=== PATIENT | male | born 1940 | race Caucasian/White ===

== ENCOUNTER → 2017-12-04 10:19 | Outpatient (CLI) | payer MEDICARE, OTHER, SELFPAY ==
[2017-12-04 10:44] LABS: Absolute Lymphocyte Count 1.77 X10^3/ul (0.83-4.51); Absolute Neutrophil Count 4.5 X10^3/uL (2.0-7.7); Basophil# 0.05 X10^3/uL; Basophil% 0.7 % (0-1); Eosinophil# 0.39 X10^3/uL; Eosinophils% 5.3 % (0-5); Hematocrit 45.1 % (40-54); Hemoglobin 15.6 g/dl (13.0-16.5); Lymphocyte # 1.77 X10^3/ul (4.0); Lymphocyte % 24.1 % (19-41); Mean Corp Hgb Conc 34.6 g/gl (32-36); Mean Corpuscular Hgb 30.6 pg (27.0-32.0); Mean Corpuscular Volume 88.4 fL (80-94); Mean Platelet Vol. 8.7 fl (6.2-12.0); Monocyte# 0.66 X10^3/uL; Neutrophil # 4.45 X10^3/uL (2.7-7.7); Neutrophil % 60.6 % (47-70); Platelet Count 251 K/mm3 (150-450); RBC Distribution Width CV 14.1 % (11.6-14.6); White Blood Count 7.3 K/mm3 (4.4-11.0)
[2017-12-04 10:52] LABS: POSITIVE COUNT NO; POSITIVE DIFFERENTIAL NO; POSITIVE MORPHOLOGY NO
[2017-12-04 11:20] LABS: ALB/GLOB Ratio 1.2 RATIO (0.9-2.4); AST(SGOT) 21 U/L (15-37); Alanine Aminotransfer ALT/SGPT 26 U/L (16-61); Albumin, Serum 4.2 g/dL (3.2-5.0); Alkaline Phosphatase 113 U/L (45-117); Anion Gap 8 (5-15); BUN 14 mg/dL (7-18); BUN/Creat Ratio 10.8 RATIO (10-20); Calcium,Total 9.3 mg/dL (8.5-10.1); Chloride 102 mmol/L (98-107); EST Glomerular Filtration Rate 57 mL/min (>60); Est Glom Filt Rate - Afr Amer 69 mL/min (>60); Globulin 3.5 g/dL (2.2-4.2); Glucose 113 mg/dL (74-106); Potassium 3.9 mmol/L (3.5-5.1); Protein, Total 7.7 g/dL (6.4-8.2); Sodium Level 138 mmol/L (136-145); Thyroid Stim Hormone (TSH) 2.37 uIU/mL (0.358-3.74)
== END ==
PROVIDERS: Family Provider Family Medicine Geriatric Medicine; PCP Family Medicine Geriatric Medicine; Visit Provider Family Medicine Geriatric Medicine
DX: I10 Essential (primary) hypertension (principal)
CPT/HCPCS: 36415; 80053; 84443; 85025

== ENCOUNTER → 2018-12-05 15:23 | Outpatient (CLI) | payer MEDICARE, OTHER, SELFPAY ==
[2018-12-05 16:11] LABS: Absolute Lymphocyte Count 2.35 X10^3/ul (0.83-4.51); Absolute Neutrophil Count 5.7 X10^3/uL (2.0-7.7); Basophil# 0.04 X10^3/uL; Basophil% 0.4 % (0-1); Eosinophil# 0.47 X10^3/uL; Hematocrit 43.2 % (40-54); Hemoglobin 14.6 g/dl (13.0-16.5); Lymphocyte # 2.35 X10^3/ul (4.0); Lymphocyte % 24.9 % (19-41); Mean Corp Hgb Conc 33.8 g/gl (32-36); Mean Corpuscular Volume 91.7 fL (80-94); Mean Platelet Vol. 8.7 fl (6.2-12.0); Monocyte# 0.84 X10^3/uL; Monocyte% 8.9 % (0-10); Neutrophil # 5.72 X10^3/uL (2.7-7.7); Neutrophil % 60.6 % (47-70); Platelet Count 238 K/mm3 (150-450); RBC Distribution Width CV 13.7 % (11.6-14.6); RBC Distribution Width SD 45.1 fl (35.1-43.9); Red Blood Count 4.71 M/mm3 (4.6-6.2); White Blood Count 9.4 K/mm3 (4.4-11.0)
[2018-12-05 16:17] LABS: Vitamin D,25 Hydroxy 4.5 ng/mL (29.95-100.01)
[2018-12-05 16:20] LABS: ALB/GLOB Ratio 1.2 RATIO (0.9-2.4); AST(SGOT) 21 U/L (15-37); Alanine Aminotransfer ALT/SGPT 28 U/L (16-61); Alkaline Phosphatase 113 U/L (45-117); Anion Gap 8 (5-15); BUN 17 mg/dL (7-18); BUN/Creat Ratio 13.5 RATIO (10-20); Calcium,Total 8.6 mg/dL (8.5-10.1); Chloride 106 mmol/L (98-107); Creatinine, Serum 1.26 mg/dL (0.70-1.30); EST Glomerular Filtration Rate 59 mL/min (>60); Est Glom Filt Rate - Afr Amer 71 mL/min (>60); Globulin 3.3 g/dL (2.2-4.2); Glucose 101 mg/dL (74-106); POSITIVE COUNT NO; POSITIVE DIFFERENTIAL NO; POSITIVE MORPHOLOGY NO; Protein, Total 7.3 g/dL (6.4-8.2); Sodium Level 141 mmol/L (136-145); Thyroid Stim Hormone (TSH) 1.88 uIU/mL (0.358-3.74)
== END ==
PROVIDERS: Family Provider Family Medicine Geriatric Medicine; PCP Family Medicine Geriatric Medicine; Visit Provider Family Medicine Geriatric Medicine
DX: E55.9 Vitamin D deficiency, unspecified (principal); I10 Essential (primary) hypertension
CPT/HCPCS: 36415; 80053; 82306; 84443; 85025

== ENCOUNTER → 2019-06-05 | Outpatient (CLI) | payer MEDICARE, OTHER, SELFPAY ==
[2019-06-05 12:16] LABS: Absolute Lymphocyte Count 2.38 X10^3/uL (0.83-4.51); Absolute Neutrophil Count 5.7 X10^3/uL (2.0-7.7); Basophil# 0.04 X10^3/uL; Basophil% 0.4 % (0-1); Eosinophils% 5.4 % (0-5); Hematocrit 44.5 % (40-54); Hemoglobin 14.8 g/dL (13.0-16.5); Lymphocyte # 2.38 X10^3/ul (4.0); Lymphocyte % 25.6 % (19-41); Mean Corp Hgb Conc 33.3 g/dL (32-36); Mean Corpuscular Hgb 30.8 pg (27.0-32.0); Mean Corpuscular Volume 92.5 fL (80-94); Mean Platelet Vol. 9.3 fl (6.2-12.0); Monocyte# 0.66 X10^3/uL; Monocyte% 7.1 % (0-10); NRBC Flagged by Analyzer 0 % (0-5); Neutrophil # 5.67 X10^3/uL (2.7-7.7); Neutrophil % 61.2 % (47-70); Platelet Count 212 K/mm3 (150-450); RBC Distribution Width CV 13.2 % (11.6-14.6); RBC Distribution Width SD 45.3 fl (35.1-43.9); Red Blood Count 4.81 M/mm3 (4.6-6.2); White Blood Count 9.3 K/mm3 (4.4-11.0)
[2019-06-05 12:41] LABS: ALB/GLOB Ratio 1.2 RATIO (0.9-2.4); AST(SGOT) 18 U/L (15-37); Alanine Aminotransfer ALT/SGPT 24 U/L (16-61); Alkaline Phosphatase 110 U/L (45-117); Anion Gap 5 (5-15); BUN 15 mg/dL (7-18); BUN/Creat Ratio 12.1 RATIO (10-20); Chloride 106 mmol/L (98-107); Creatinine, Serum 1.24 mg/dL (0.70-1.30); EST Glomerular Filtration Rate 60 mL/min (>60); Est Glom Filt Rate - Afr Amer 72 mL/min (>60); Globulin 3.4 g/dL (2.2-4.2); Glucose 110 mg/dL (74-106); Potassium 3.7 mmol/L (3.5-5.1); Protein, Total 7.4 g/dL (6.4-8.2); Sodium Level 139 mmol/L (136-145); Thyroid Stim Hormone (TSH) 1.86 uIU/mL (0.358-3.74)
== END | disposition home or self-care (01) ==
PROVIDERS: Family Provider Family Medicine Geriatric Medicine; PCP Family Medicine Geriatric Medicine; Visit Provider Family Medicine Geriatric Medicine
DX: I10 Essential (primary) hypertension (principal); E55.9 Vitamin D deficiency, unspecified
CPT/HCPCS: 36415; 80053; 82306; 84443; 85025

== ENCOUNTER → 2019-12-06 08:42 | Outpatient (CLI) | payer MEDICARE, OTHER, SELFPAY ==
[2019-12-06 13:08] LABS: Absolute Lymphocyte Count 2.26 X10^3/uL (0.83-4.51); Absolute Neutrophil Count 6.5 X10^3/uL (2.0-7.7); Basophil# 0.05 X10^3/uL; Basophil% 0.5 % (0-1); Eosinophil# 0.54 X10^3/uL; Eosinophils% 5.3 % (0-5); Hematocrit 44.5 % (40-54); Hemoglobin 14.4 g/dL (13.0-16.5); Lymphocyte # 2.26 X10^3/ul (4.0); Lymphocyte % 22.3 % (19-41); Mean Corp Hgb Conc 32.4 g/dL (32-36); Mean Corpuscular Hgb 29.9 pg (27.0-32.0); Mean Corpuscular Volume 92.3 fL (80-94); Monocyte# 0.81 X10^3/uL; NRBC Flagged by Analyzer 0 % (0-5); Neutrophil # 6.46 X10^3/uL (2.7-7.7); Neutrophil % 63.6 % (47-70); Platelet Count 224 K/mm3 (150-450); RBC Distribution Width CV 13.7 % (11.6-14.6); RBC Distribution Width SD 46.5 fl (35.1-43.9); Red Blood Count 4.82 M/mm3 (4.6-6.2); White Blood Count 10.2 K/mm3 (4.4-11.0)
[2019-12-06 13:30] LABS: ALB/GLOB Ratio 1.1 RATIO (0.9-2.4); AST(SGOT) 18 U/L (15-37); Alanine Aminotransfer ALT/SGPT 31 U/L (16-61); Alkaline Phosphatase 101 U/L (45-117); Anion Gap 6 (5-15); BUN 18 mg/dL (7-18); BUN/Creat Ratio 15.3 RATIO (10-20); Calcium,Total 9.3 mg/dL (8.5-10.1); Chloride 102 mmol/L (98-107); Creatinine, Serum 1.18 mg/dL (0.70-1.30); EST Glomerular Filtration Rate 63 mL/min (>60); Est Glom Filt Rate - Afr Amer 76 mL/min (>60); Globulin 3.6 g/dL (2.2-4.2); Glucose 104 mg/dL (74-106); Potassium 3.7 mmol/L (3.5-5.1); Protein, Total 7.6 g/dL (6.4-8.2); Sodium Level 138 mmol/L (136-145); Thyroid Stim Hormone (TSH) 2.35 uIU/mL (0.358-3.74)
[2019-12-10 11:23] LABS: Vitamin D,25 Hydroxy 19.6 ng/mL
== END ==
PROVIDERS: PCP Family Medicine Geriatric Medicine; Visit Provider Family Medicine Geriatric Medicine
DX: I10 Essential (primary) hypertension (principal); E55.9 Vitamin D deficiency, unspecified
CPT/HCPCS: 36415; 80053; 82306; 84443; 85025

== ENCOUNTER → 2020-06-05 10:21 | Outpatient (CLI) | payer MEDICARE, OTHER, SELFPAY ==
[2020-06-05 11:04] LABS: Absolute Neutrophil Count 3.9 X10^3/uL (2.0-7.7); Basophil# 0.06 X10^3/uL; Basophil% 0.7 % (0-1); Eosinophil# 0.39 X10^3/uL; Eosinophils% 4.4 % (0-5); Hematocrit 45.6 % (40-54); Hemoglobin 14.8 g/dL (13.0-16.5); Lymphocyte % 41.6 % (19-41); Mean Corp Hgb Conc 32.5 g/dL (32-36); Mean Corpuscular Hgb 30.6 pg (27.0-32.0); Mean Corpuscular Volume 94.4 fL (80-94); Monocyte# 0.79 X10^3/uL; Monocyte% 8.9 % (0-10); NRBC Flagged by Analyzer 0 % (0-5); Neutrophil # 3.92 X10^3/uL (2.7-7.7); Neutrophil % 44.1 % (47-70); Platelet Count 287 K/mm3 (150-450); RBC Distribution Width SD 48.4 fl (35.1-43.9); Red Blood Count 4.83 M/mm3 (4.6-6.2); White Blood Count 8.9 K/mm3 (4.4-11.0)
[2020-06-05 11:21] LABS: Vitamin D,25 Hydroxy 25.4 ng/mL
[2020-06-05 11:32] LABS: ALB/GLOB Ratio 1.1 RATIO (0.9-2.4); AST(SGOT) 16 U/L (15-37); Alanine Aminotransfer ALT/SGPT 24 U/L (16-61); Alkaline Phosphatase 98 U/L (45-117); Anion Gap 3 (5-15); BUN 17 mg/dL (7-18); BUN/Creat Ratio 13.7 RATIO (10-20); Calcium,Total 9.1 mg/dL (8.5-10.1); Chloride 105 mmol/L (98-107); Creatinine, Serum 1.24 mg/dL (0.70-1.30); EST Glomerular Filtration Rate 60 mL/min (>60); Est Glom Filt Rate - Afr Amer 72 mL/min (>60); Globulin 3.6 g/dL (2.2-4.2); Glucose 99 mg/dL (74-106); Potassium 3.7 mmol/L (3.5-5.1); Protein, Total 7.6 g/dL (6.4-8.2); Sodium Level 139 mmol/L (136-145); Thyroid Stim Hormone (TSH) 4.63 uIU/mL (0.358-3.74)
== END ==
PROVIDERS: PCP Family Medicine Geriatric Medicine; Visit Provider Family Medicine Geriatric Medicine
DX: I10 Essential (primary) hypertension (principal); E55.9 Vitamin D deficiency, unspecified
CPT/HCPCS: 36415; 80053; 82306; 84443; 85025

== ENCOUNTER → 2020-06-11 14:44 | Outpatient (CLI) | payer MEDICARE, OTHER, SELFPAY | LOC: LAB.FUTURE 14:44 → POLAB3 07-22 09:55 | PROVIDERS: PCP Family Medicine Geriatric Medicine; Visit Provider Family Medicine Geriatric Medicine | DX: E03.9 Hypothyroidism, unspecified (principal) ==

== ENCOUNTER → 2020-07-22 09:57 | Outpatient (CLI) | payer MEDICARE, OTHER, SELFPAY ==
[2020-07-22 12:41] LABS: Thyroid Stim Hormone (TSH) 1.59 uIU/mL (0.358-3.74)
== END ==
PROVIDERS: PCP Family Medicine Geriatric Medicine; Visit Provider Family Medicine Geriatric Medicine
DX: E03.9 Hypothyroidism, unspecified (principal)
CPT/HCPCS: 36415; 84443

== ENCOUNTER 2020-09-14 20:30 | Inpatient (IN) | payer MEDICARE, OTHER, SELFPAY ==
[2020-09-14 20:31] VITALS: BP 126/82; PULSE 114; RESP 20; TEMP 36.3; O2SAT 92; BMI 30.7
--- NOTE | 2020-09-14 21:20 | EKG12_ITS ---
Test Reason : SOB Blood Pressure : / mmHG Vent. Rate : 110 BPM Atrial Rate : 110 BPM P-R Int : 208 ms QRS Dur : 084 ms QT Int : 366 ms P-R-T Axes : 034 045 119 degrees QTc Int : 495 ms Sinus tachycardia Anteroseptal infarct , age undetermined ST & T wave abnormality, consider lateral ischemia Abnormal ECG Confirmed by DIEGO CULLEN, YASMANI ([id number]), marketing editor TITUS HIGH ([id number]) on 09/16/2020 9:45:52 AM Referred By: Yasmani Lao Confirmed By:YASMANI CORTEZ MD
[2020-09-14 21:56] VITALS: O2SAT 90
[2020-09-14 21:57] VITALS: O2SAT 90
--- NOTE | 2020-09-14 22:00 | RAD_ITS ---
HISTORY: sob x3-4 days was exposed to covid on . EXAMINATION/TECHNIQUE: XR Chest 1 View: COMPARISON: December 24, 2010 FINDINGS: LINES/DEVICES: None. LUNGS: There is interstitial thickening that is seen most marked in the lung bases when compared to prior study with vascular congestion. Minimal overlying airspace opacity in the right lung base and atelectasis in the left lung base. No pneumothorax. MEDIASTINUM AND CARDIOVASCULAR STRUCTURES: Cardiac silhouette not enlarged. Central airways and mediastinal contour are unremarkable. BONES AND SOFT TISSUES: Unremarkable. RAD/Chest 1 View (Portable) IMPRESSION: Bilateral interstitial thickening greatest in the lung bases with superimposed airspace opacities seen predominantly in the right lung base and minimal atelectasis in the left lung base. at 2224 Reported and signed by: Kasia Mccoy DO Electronically Signed: Kasia Mccoy DO at 22:23 EST Tel , Service support ,
--- NOTE | 2020-09-14 22:03 | ED.RN ---
After walking pt po stayed at 86% 02 at 3lnc appilied
[2020-09-14 22:05] LABS: Absolute Neutrophil Count 6.7 X10^3/uL (2.0-7.7); Basophil# 0.02 X10^3/uL; Basophil% 0.2 % (0-1); Eosinophil# 0.07 X10^3/uL; Eosinophils% 0.8 % (0-5); Hematocrit 41.7 % (40-54); Hemoglobin 14.1 g/dL (13.0-16.5); Lymphocyte % 15.5 % (19-41); Mean Corp Hgb Conc 33.8 g/dL (32-36); Mean Corpuscular Hgb 31.5 pg (27.0-32.0); Mean Corpuscular Volume 93.1 fL (80-94); Mean Platelet Vol. 9.1 fl (6.2-12.0); Monocyte# 0.79 X10^3/uL; Monocyte% 8.7 % (0-10); NRBC Flagged by Analyzer 0 % (0-5); Neutrophil # 6.71 X10^3/uL (2.7-7.7); Neutrophil % 74.4 % (47-70); Platelet Count 233 K/mm3 (150-450); RBC Distribution Width CV 14.1 % (11.6-14.6); RBC Distribution Width SD 48.1 fl (35.1-43.9); Red Blood Count 4.48 M/mm3 (4.6-6.2)
[2020-09-14 22:30] VITALS: PULSE 101; RESP 17; O2SAT 93
[2020-09-14 22:48] LABS: Lactic Acid 2.2 mmol/L (0.4-1.9); Procalcitonin < 0.04 ng/mL (0.00-0.09)
--- NOTE | 2020-09-14 22:52 | ED.RN ---
lab called about labs not resulting. they said it will be turned out few minutes
[2020-09-14 22:53] LABS: Fibrinogen 628 mg/dl (203-444)
[2020-09-14 22:55] LABS: D-Dimer Quantitative (DVT/PE) 1.07 FEU/ug/m (0.27-0.49)
--- NOTE | 2020-09-14 23:00 | ED.DCSUM_ITS ---
- ER Visit Summary Date of Service: 09/14/20 Chief Complaint: Shortness of breath History of Present Illness: The patient is a [address] Ball. He reports his shortness of breath began 3 to 4 days ago. States that it is severe at worst and mild currently. Is worsened by walking. He denies fever or chills. He reports that he has a cough after using his nebulizer today, but is not been coughing otherwise. Patient denies any chest pain. He reports he has had sick contacts that he had a family member at [employer] who tested positive for Covid. Physical Examination: Vitals: Stable. Afebrile. General: Well-nourished and well-developed. Head: Normocephalic atraumatic. Neck: Supple, no lymphadenopathy. No JVD. Nontender. Cardiovascular: Regular tachycardic rhythm with a 2 out of 6 systolic murmur. Respiratory: No respiratory distress. Crackles throughout bilaterally. Abdominal: Soft, nontender, nondistended, normal bowel sounds. No guarding, rebound, or peritoneal signs. Back: Nontender. Extremities: Nontender, 1+ edema lower extremities bilaterally. Skin: Normal color, no rash. Neurologic: Alert and oriented ?3. Cranial nerves II through XII are intact. Normal strength and sensation. Psych: Normal affect. Test Results: EKG sinus tachycardia at 110 with septal Q waves and nonspecific ST changes. There is no old EKG for comparison. Troponin 0 0.851. Lactic acid is 2.2. D-dimer is 1.07. Rapid antigen Covid 19 test was negative. Chem-7 shows a chloride of 110, BUN 24, creatinine 1.52, glucose 127. CBC shows 7 neutrophils 74 lymphocytes 16. CPK is 198. LDH is 191. Fibrinogen is 628. Procalcitonin is negative. Clinical Impression(s) from Imaging Studies Chest X-Ray 09/14/20 22:00 IMPRESSION: Bilateral interstitial thickening greatest in the lung bases with superimposed airspace opacities seen predominantly in the right lung base and minimal atelectasis in the left lung base. at 2224 Reported and signed by: Kasia Mccoy DO Electronically Signed: Kasia Mccoy DO at 22:23 EST Tel , Service support , Chest CTA 09/14/20 23:12 Emergency Department Course and Treatment: Initially in the emergency department patient did not look uncomfortable at rest. However, after he returned from the CTA of his chest he was very dyspneic. His chest x-ray raises the possibility of CHF versus a false negative COVID-19 test. He was given dexamethasone IV. He was placed on BiPAP and given Lasix IV. He was given aspirin p.o. and Lovenox subcu. He was given Rocephin and Zithromax IV. Ambulatory pulse ox was 86% on room air. Treatment Plan: Patient appears critically ill. At this time he is unable to decide whether or not he wants to be on a ventilator. He did improve greatly following BiPAP and is resting more comfortably. Patient will be admitted to the hospital for further evaluation and treatment. He was discussed with Dr. Lagunas. Disposition: Admitted in serious condition. Impression: 1. Pneumonia. 2. Hypoxia. 3. Respiratory failure on BiPAP. 4. Sepsis. 5. Elevated troponin. 6. Critical care time 33 minutes. This note was generated with [employer] dictation software. It may contain incorrect words, spelling, and punctuation that were not noted in review of the chart prior to signing ED Disposition - Plan for ED Patient: Referrals: Douglas Ball Chi, MD [Primary Care Provider] -
[2020-09-14 23:05] LABS: AST(SGOT) 18 U/L (15-37); Alanine Aminotransfer ALT/SGPT 21 U/L (16-61); Albumin, Serum 3.5 g/dL (3.2-5.0); Alkaline Phosphatase 106 U/L (45-117); Anion Gap 7 (5-15); BUN 24 mg/dL (7-18); BUN/Creat Ratio 15.8 RATIO (10-20); CPK Total, Creatine Kinase 198 U/L (39-308); Calcium,Total 8.8 mg/dL (8.5-10.1); Chloride 110 mmol/L (98-107); Creatinine, Serum 1.52 mg/dL (0.70-1.30); EST Glomerular Filtration Rate 47 mL/min (>60); Est Glom Filt Rate - Afr Amer 57 mL/min (>60); Estimated Creatinine Clearance 35.64 ml/min; Globulin 3.5 g/dL (2.2-4.2); Glucose 127 mg/dL (74-106); LDH 191 U/L (87-241); Potassium 3.6 mmol/L (3.5-5.1); Sodium Level 142 mmol/L (136-145)
[2020-09-14] MEDS: dexAMETHasone 4 MG/ML Vial 6 MG IV (23:11)
[2020-09-14 23:12] VITALS: BP 123/83; PULSE 105; RESP 18; O2SAT 91
--- NOTE | 2020-09-14 23:12 | CT_ITS ---
HISTORY: Shortness of breath 3-4 days. Exposed to cold that on . Hypertension TECHNIQUE:CTA Chest WO/W Contrast Injection A CT of the chest was performed following the administration of ml 75mL [id number] Thin axial reconstructed images were performed through the pulmonary vasculature as per the routine pulmonary embolus protocol.MIP and mutiplanar reconstructions A dose optimization technique was used during the scan # of images including paperwork:[id number] Comparison: Chest radiograph on September 14, 2020 FINDINGS: No aneurysm or dissection. There is calcified plaque seen within the a sending aorta as well as scattered throughout the aortic arch and descending thoracic aorta Pulmary arteries: No evidence of pulmonary emboli The heart is not enlarged. No evidence of right heart strain. No pericardial effusion. Small bilateral pleural effusions. Mediastinal lymph nodes are noted but sub-pathologic by size criteria No hilar adenopathy. No axillary adenopathy. The thyroid gland is unremarkable. The lungs there are emphysematous changes bilaterally. Septal thickening is noted in the upper and lower lobes. Consolidative infiltrates are seen within the lower lobes Groundglass opacity with septal thickening seen within the left upper lobe as well as the right upper lobe with patchy airspace opacities. Crazy paving type appearance with septal thickening is seen within the bilateral upper lobes. There is also bronchiectasis seen within the upper lobes with peribronchial thickening.. Pneumpothorax: none The trachea and central airways appear patent . Limited views of the upper abdomen unremarkable No acute osseous abnormality. IMPRESSION: No aneurysm, dissection, or pulmonary embolism No evidence of right heart strain Nonspecific ground glass opacity seen bilaterally with crazy paving appearance in the upper lobes. Septal thickening seen within the upper lobes with emphysematous changes noted Patchy consolidations are seen within the bilateral lung bases with small bilateral pleural effusions. These findings are nonspecific and compatible with pneumonitis. These may be superimposed on chronic lung disease. Individualized dose optimization techniques were used for this CT. at 2353 Reported and signed by: Kasia Mccoy DO Electronically Signed: Kasia Mccoy DO at 23:53 EST Tel , Service support , CT/CTA Chest W/WO Contrast
[2020-09-14 23:46] VITALS: BP 147/113; PULSE 134; RESP 32; O2SAT 87
[2020-09-14] MEDS: Aspirin 81 MG TAB.CHEW 324 MG PO (23:48)
[2020-09-14] MEDS: Enoxaparin 100 MG/ML Syringe 90 MG SC (23:49)
[2020-09-15] VITALS (46 sets, daily range): BP systolic 97–144; BP diastolic 63–101; PULSE 70–130; RESP 12–25; TEMP 36.2–36.6; O2SAT 85–99; BMI 29.3
--- NOTE | 2020-09-15 00:04 | CPS ---
pts spo2 in high 90's after adding BIPAP. slowly weaning FiO2.
[2020-09-15] MEDS: Furosemide 40 MG/4 ML Vial IV ×2 (00:08→08:09)
[2020-09-15] MEDS: Ceftriaxone 1 GM/50 ML BAG IV (00:11)
--- NOTE | 2020-09-15 00:30 | ED.RN ---
left a message on daughters phone to call [facility]. Pt did not answer
--- NOTE | 2020-09-15 00:30 | CPS ---
pt complaining not enough air. IPAP increased
[2020-09-15] MEDS: LORazepam 2 MG/ML Syringe 0.5 MG IV (00:48)
--- NOTE | 2020-09-15 00:52 | CPS ---
pt complaining of too much air. pressures decreased
--- NOTE | 2020-09-15 00:59 | ED.RN ---
report called to dami in icu
--- NOTE | 2020-09-15 01:01 | HP.PCM_ITS ---
Problem List (1) CHF (congestive heart failure) Status: Acute (2) Pneumonia Status: Acute (3) Respiratory failure Status: Acute History of Present Illness Date of Admission: 09/15/20 Chief Complaint: shortness of breath The patient is a 80 year old male patient presents to the emergency room with acute shortness of breath. Onset of symptoms began 2 days ago and have been progressively any worse. Initial oxygenation on presentation was 85% with rapid rate of breathing at 24 along with tachycardia. The patient was placed on BiPAP therapy in the emergency room and agrees to intubation only as a last resort. Initial Covid antigen testing is negative despite having had exposure to a family member who tested positive on . Laboratory studies reveal a white blood cell count of 9000, hemoglobin 14, hematocrit 41, platelets 233, D- dimer 1.07 elevated, fibrinogen 628 elevated, CRP 58.4 elevated, sodium 142, potassium 3.6, chloride 110, bicarb 25, BUN 24, creatinine 1.5, lactate elevated at 2.2, troponin elevated 0.851, pro calcitonin negative. CT angiogram of the chest reveals groundglass opacities bilaterally and patchy consolidations with small bilateral pleural effusions. The patient became very dyspneic during his CT angiogram when laying flat. He has subsequently recovered with BiPAP therapy but is struggling with some anxiety on the BiPAP. The patient will be admitted to intensive care unit due to impending respiratory failure and despite negative Covid testing the patient remains suspicious for possible COVID-19 infection. Past Medical History Allergies No Known Allergies Allergy (Verified 09/14/20 20:30) Home Medications: Ambulatory Orders Medication Instructions Recorded Amlodipine [Norvasc] 10 mg PO DAILY 09/14/20 Levothyroxine [Synthroid] 100 mcg PO DAILY 09/14/20 Lisinopril/Hydrochlorothiazide 1 ea PO DAILY 09/14/20 [Lisinopril-Hctz 10-12.5 mg Tab] Metoprolol Tartrate [Lopressor 100 mg PO DAILY 09/14/20 (beta ginny)] Smoking Status: Former smoker - *Family History Maternal History Items: No pertinent history Review of Systems Constitutional: Reports: Weakness. Denies: Chills, Fever, Weight Change HEENT: Denies: Head Aches, Sinus Congestion, Sinus Drainage Cardiovascular: Denies: Chest Pain, Palpitations Respiratory: Reports: Cough, Shortness of breath at rest. Denies: Sputum production Gastrointestinal: Denies: Abdominal Pain, Nausea, Vomiting Genitourinary: Denies: Dysuria Musculoskeletal: Denies: Joint Pain, Joint Tenderness Skin: Denies: Rash, Wounds Neurological: Denies: Numbness, Tingling, Focal weakness Psychiatric: Reports: Anxiety. Denies: Depression, Homicidal Ideations, Suicidal Ideations Hematologic/ Lymphatic: Denies: Easy Bruising, Easy Bleeding VTE Information - Inpt Only VTE Present on Admission: No VTE Mechan Device Prophylaxis: None VTE Pharm Prophylaxis ordered?: Yes - Physical Exam Vitals/I&O's: Vital Signs Temp Pulse Resp BP Pulse Ox 97.5 F L 127 H 20 H 126/81 H 94 09/15/20 00:17 09/15/20 00:50 09/15/20 00:50 09/15/20 00:50 09/15/20 00:50 Oxygen Flow Rate (L/min) 8 Oxygen Delivery Method Bi-pap Weight: 196 lb Body Mass Index (BMI) 30.7 Intake and Output for Last 24 Hours 09/13/20 09/14/20 09/15/20 23:59 23:59 23:59 Intake Total 50 / 50 Balance 50 / 50 General: Alert, Oriented x3, Cooperative HEENT: Atraumatic, Normocephalic Neck: Supple Lungs: Diminished, Short of Breath, Tachypneic Cardiovascular: Normal S1, Normal S2, No murmurs, Tachycardic Abdomen: Bowel Sounds Present, Soft Extremities: No edema Skin: No rashes, No breakdown Musculoskeletal: No Tenderness to Palpation of Joints or Extremities Neurological: Neuro grossly intact Psych/Mental Status: Appropriate, Anxious Microbiology Past 72 Hours 09/14/20 20:55 Mucosa - Nose SARS-CoV-2 Antigen (Rapid) - Final Laboratory Results 09/14/20 20:45: WBC 9.0, RBC 4.48 L, Hgb 14.1, Hct 41.7, MCV 93.1, MCH 31.5, MCHC 33.8, RDW Std Deviation 48.1 H, RDW Coeff of [place]ion 14.1, Plt Count 233, MPV 9.1, Immature Gran % (Auto) 0.400, Neut % (Auto) 74.4 H, Lymph % (Auto) 15.5 L, [place] % (Auto) 8.7, Eos % (Auto) 0.8, Baso % (Auto) 0.2, Absolute Neuts (auto) 6.7, Absolute Lymphs (auto) 1.40, Nucleated RBC % 0 09/14/20 20:45: Fibrinogen 628 H, D-Dimer Quant (PE/DVT) 1.07 H* 09/14/20 20:45: Sodium 142, Potassium 3.6, Chloride 110 H, Carbon Dioxide 25.0, Anion Gap 7, BUN 24 H, Creatinine 1.52 H, Estim Creat Clear Calc 35.64, Est GFR (MDRD) Af Amer 57 L, Est GFR (MDRD) Non-Af 47 L, BUN/Creatinine Ratio 15.8, Glucose 127 H, Calcium 8.8, Total Bilirubin 0.40, AST 18, ALT 21, Alkaline Phosphatase 106, Lactate Dehydrogenase 191, Total Creatine Kinase 198, Troponin I 0.851 H*, C-React Prot Ext Range 58.40 H, Total Protein 7.0, Albumin 3.5, Globulin 3.5, Albumin/Globulin Ratio 1.0 09/14/20 20:45: Lactic Acid 2.2 H* 09/14/20 20:45: Procalcitonin < 0.04 Assessment/Plan All Active Problems CHF (congestive heart failure) (Acute) Pneumonia (Acute) Respiratory failure (Acute) Plan 1. Impending respiratory failure likely secondary to congestive heart failure but also suspicious for underlying infectious process therefore will continue to be suspicious of COVID-19 and retest in the morning. Will place patient intensive care unit consult field liability generalist for intensive care unit management. Strict isolation precautions until repeat Covid testing is negative, continue community-acquired pneumonia coverage including azithromycin Rocephin for now and continue aggressive BiPAP therapy and only intubate patient as a last resort. We will add Ativan 0.5 mg iv 3 times daily as needed and will add Lasix daily We will get CBC BMP and magnesium level in the a.m. along with a chest x-ray 2. DVT prophylaxis?low molecular weight heparin Inpatient E&M: 41225 Init Hosp L3
[2020-09-15 01:53] LABS: Reflex Lactate? Y
[2020-09-15 02:11] LABS: BNP,B-Type NATRIURETIC PEPTIDE 704.9 pg/mL (0-100)
[2020-09-15 02:33] LABS: Lactic Acid 1.6 mmol/L (0.4-1.9)
--- NOTE | 2020-09-15 03:15 | NURSING ---
Thaddeus in to change O2 setting due to spo2 88-90%. bipap increased to 16/8, 75%
[2020-09-15] MEDS: 0.9% Saline Lock 10 ML Syringe IV (04:50)
[2020-09-15] MEDS: Levothyroxine 100 MCG Tablet PO (04:50)
--- NOTE | 2020-09-15 05:00 | MDS.RN ---
Pt awake, pt given synthroid with water, states his breathing feels much better. bipap replaced. psn will decrease fi02 on next round.
[2020-09-15 05:01] LABS: Absolute Lymphocyte Count 0.73 X10^3/uL (0.83-4.51); Absolute Neutrophil Count 10.5 X10^3/uL (2.0-7.7); Basophil# 0.02 X10^3/uL; Basophil% 0.2 % (0-1); Hematocrit 43.6 % (40-54); Hemoglobin 14.5 g/dL (13.0-16.5); Lymphocyte # 0.73 X10^3/ul (4.0); Lymphocyte % 6.3 % (19-41); Mean Corp Hgb Conc 33.3 g/dL (32-36); Mean Corpuscular Volume 93.2 fL (80-94); Mean Platelet Vol. 9.2 fl (6.2-12.0); Monocyte% 3.4 % (0-10); NRBC Flagged by Analyzer 0 % (0-5); Neutrophil # 10.48 X10^3/uL (2.7-7.7); Neutrophil % 89.8 % (47-70); Platelet Count 243 K/mm3 (150-450); RBC Distribution Width CV 14.1 % (11.6-14.6); Red Blood Count 4.68 M/mm3 (4.6-6.2); White Blood Count 11.7 K/mm3 (4.4-11.0)
[2020-09-15 05:24] LABS: BUN 23 mg/dL (7-18); Calcium,Total 8.7 mg/dL (8.5-10.1); Creatinine, Serum 1.44 mg/dL (0.70-1.30); EST Glomerular Filtration Rate 50 mL/min (>60); Est Glom Filt Rate - Afr Amer 61 mL/min (>60); Estimated Creatinine Clearance 38.92 ml/min; Glucose 152 mg/dL (74-106)
[2020-09-15 05:25] LABS: Anion Gap 6 (5-15); Chloride 107 mmol/L (98-107); Potassium 4.2 mmol/L (3.5-5.1); Sodium Level 138 mmol/L (136-145); Thyroid Stim Hormone (TSH) 1.31 uIU/mL (0.358-3.74)
--- NOTE | 2020-09-15 05:40 | EKG12_ITS ---
Test Reason : AM EKG Blood Pressure : / mmHG Vent. Rate : 099 BPM Atrial Rate : 098 BPM P-R Int : 188 ms QRS Dur : 084 ms QT Int : 366 ms P-R-T Axes : 057 011 081 degrees QTc Int : 469 ms Sinus rhythm with Premature supraventricular complexes Septal infarct , age undetermined Abnormal ECG Confirmed by DIEGO CULLEN, YASMANI ([id number]), senior technical editor TITUS HIGH ([id number]) on 09/16/2020 9:56:59 AM Referred By: Yasmani Lao Confirmed By:YASMANI CORTEZ MD
--- NOTE | 2020-09-15 05:46 | NURSING ---
Thaddeus in to do ekg, radiology in for cxr
--- NOTE | 2020-09-15 05:55 | RAD_ITS ---
STUDY: X-RAY CHEST REASON FOR EXAM: Male, 80 years old. Shortness of breath. TECHNIQUE: Single AP portable view of the chest. COMPARISON: 09/14/2020. FINDINGS: Telemetry wires overlie the chest. The lungs are hypoexpanded. There is increasing interstitial and alveolar infiltrates at the lung bases with questionable pleural effusions. Normal size heart. Normal mediastinum and duane. Normal visualized pulmonary arteries. There is atherosclerotic calcification of the aortic arch with tortuosity. No visualized osseous changes. There is no demonstrated abnormality of the visualized soft tissue structures of the upper abdomen. RAD/Chest 1 View (Portable) IMPRESSION: Increasing pulmonary infiltrates and pleural effusions. Electronically Signed: Sim Trevino DO at 21:20 EST Tel [phone], Service support ,
--- NOTE | 2020-09-15 05:57 | NURSING ---
ekg cortexted to Dr Lao. no new orders
[2020-09-15] MEDS: Enoxaparin 40 MG/0.4 ML Syringe SC (08:09)
[2020-09-15 08:37] LABS: Cholesterol 193 mg/dL (200); High Density Lipoprotein 27 mg/dL; Triglycerides 82 mg/dL; Very Low Density Lipoprotein 16 mg/dL (5-40)
[2020-09-15 09:06] LABS: International Normalized Ratio 1.1; Prothrombin Time (Protime)PT. 13.8 SECONDS (11.7-14.9)
[2020-09-15 09:07] LABS: Partial Thromboplast Time 32.3 Seconds (24.1-36.2)
--- NOTE | 2020-09-15 11:17 | ECHOD_ITS ---
Reason For Study: S/P [place] Procedure This was a 2D Doppler, Color Flow transthoracic echocardiogram. The study was technically difficult. Poor parasternal accoustic windows. Exam performed portable in ICU/CCU. Left Ventricle Apical false tendon noted. Moderate segmental systolic dysfunction (see wall motion). The estimated ejection fraction is 30 %. Diastolic function is indeterminate. Infero-Basal: Hypokinetic. Basal inferoseptal: Hypokinetic. Basal anteroseptal: Hypokinetic. Mid-Anterior : Akinetic. Mid-Lateral : Hypokinetic. Mid-Posterior: Hypokinetic. Mid-Inferior: Hypokinetic. Mid-inferoseptal : Akinetic. Mid-anteroseptal : Akinetic. [place] : Akinetic. Right Ventricle Normal RV size. Normal systolic function. Atria Normal left atrium. Normal right atrium. Prominent eustachian valve. No doppler evidence for ASD. Mitral Valve There is no mitral annular calcification. Mild diffuse mitral valve thickening. Moderate (2+) mitral valve insufficiency. Tricuspid Valve Normal tricuspid valve. Mild to moderate (1-2+) tricuspid valve insufficiency. Right ventricular systolic pressure estimated to be 50 mmHg. Aortic Valve The aortic valve is not well visualized. Trivial aortic valve insufficiency. Pulmonic Valve The pulmonic valve is not well visualized. Great Vessels The aortic root is not well visualized. Pericardium/Pleural No pericardial effusion. MMode/2D Measurements & Calculations RVDd: 3.6 cm Ao root diam: 3.4 cm LAV(MOD-bp): 53.5 ml LAV(MOD-bp) Indexed: 26.6 ml/m2 LAV(MOD-sp2): 46.5 ml LAV(MOD-sp4): 50.7 ml LA A4 area: 18.1 cm2 RA A4 area: 12.1 cm2 Time Measurements MV dec time: 0.10 sec Doppler Measurements & Calculations MV E max jhon: 88.0 cm/sec Lat Peak E' Jhon: 9.1 cm/sec Med Peak E' Jhon: 6.5 cm/sec MV A max jhon: 106.3 cm/sec E/E' lat: 9.6 E/E' med: 13.5 MV E/A: 0.83 Ao V2 max: 146.9 cm/sec LV V1 max: 90.2 cm/sec PA V2 max: 93.6 cm/sec Ao max P.6 mmHg LV V1 max P.3 mmHg TR max jhon: 340.9 cm/sec TR max P.5 mmHg Interpretation Summary The study was technically difficult. Moderate segmental systolic dysfunction (see wall motion). The estimated ejection fraction is 30 %. Apical false tendon noted. Prominent eustachian valve. Mild diffuse mitral valve thickening. Moderate (2+) mitral valve insufficiency. Mild to moderate (1-2+) tricuspid valve insufficiency. Trivial aortic valve insufficiency. Right ventricular systolic pressure estimated to be 50 mmHg c/w pulmonary hypertension. Diastolic function is indeterminate. Ordering Physician: Yasmani Curry Referring Physician: Yasmani Lao Performed By: Anel Toussaint, RDCS, RVT
--- NOTE | 2020-09-15 11:39 | CON.PCM_ITS ---
Problem List (1) Respiratory failure Status: Acute Reason for Consult: hypoxia Consulted by: Dr. Aguero History of Present Illness: The patient is a 80 year old M had thanksgiving dinner 09/10 with family member who ended up testing (+) for covid that day. Lives with daughter and granddaughter. A day or two later, daughter and he got sick. Daughter with fatigue, not feeling well, but got tested for covid and reportedly neg. He developed dyspnea, some back/aches, some cough. No congestion. No fever or chills, no n/v/d, no change in taste or smell. Denies orthopnea or PND. No chest pain. Came to ED, covid Ag and pcr neg, admitted on bipap, azithro/ceftriaxone. Full ROS performed and neg except as noted above. - Medical History Surgical History: reviewed Allergies/Adverse Reactions: Allergies No Known Allergies Allergy (Verified 09/14/20 20:30) Home Medications: Ambulatory Orders Medication Instructions Recorded Amlodipine [Norvasc] 10 mg PO DAILY 09/14/20 Levothyroxine [Synthroid] 100 mcg PO DAILY 09/14/20 Lisinopril/Hydrochlorothiazide 1 ea PO DAILY 09/14/20 [Lisinopril-Hctz 10-12.5 mg Tab] Metoprolol Tartrate [Lopressor 100 mg PO DAILY 09/14/20 (beta ginny)] Aspirin, Baby 81 mg PO DAILY 09/15/20 - Social History SMOKING STATUS:: Former smoker Vital Signs Temp Pulse Resp BP Pulse Ox 97.1 F L 81 16 144/74 H 95 09/15/20 04:00 09/15/20 08:42 09/15/20 07:35 09/15/20 07:00 09/15/20 07:35 Oxygen Flow Rate (L/min) 8 Oxygen Delivery Method Bi-pap Weight: 87.5 kg Body Mass Index (BMI) 29.3 Microbiology Past 72 Hours 09/14/20 20:55 SARS-CoV-2 Antigen (Rapid) - Final Mucosa - Nose Laboratory Tests Past 24 Hrs 09/14/20 09/14/20 09/14/20 20:45 20:45 20:45 WBC 9.0 RBC 4.48 L Hgb 14.1 Hct 41.7 MCV 93.1 MCH 31.5 MCHC 33.8 RDW Std Deviation 48.1 H RDW Coeff of Damion 14.1 Plt Count 233 MPV 9.1 Immature Gran % (Auto) 0.400 Neut % (Auto) 74.4 H Lymph % (Auto) 15.5 L [place] % (Auto) 8.7 Eos % (Auto) 0.8 Baso % (Auto) 0.2 Absolute Neuts (auto) 6.7 Absolute Lymphs (auto) 1.40 Nucleated RBC % 0 PT INR APTT Fibrinogen 628 H D-Dimer Quant (PE/DVT) 1.07 H* Sodium 142 Potassium 3.6 Chloride 110 H Carbon Dioxide 25.0 Anion Gap 7 BUN 24 H Creatinine 1.52 H Estim Creat Clear Calc 35.64 Est GFR (MDRD) Af Amer 57 L Est GFR (MDRD) Non-Af 47 L BUN/Creatinine Ratio 15.8 Glucose 127 H Lactic Acid Calcium 8.8 Magnesium Total Bilirubin 0.40 AST 18 ALT 21 Alkaline Phosphatase 106 Lactate Dehydrogenase 191 Total Creatine Kinase 198 Troponin I 0.851 H* C-React Prot Ext Range 58.40 H B-Natriuretic Peptide Total Protein 7.0 Albumin 3.5 Globulin 3.5 Albumin/Globulin Ratio 1.0 Triglycerides Cholesterol LDL Cholesterol VLDL Cholesterol HDL Cholesterol Procalcitonin TSH COVID-19 ([facility]) 09/14/20 09/14/20 09/15/20 20:45 20:45 01:45 WBC RBC Hgb Hct MCV MCH MCHC RDW Std Deviation RDW Coeff of Damion Plt Count MPV Immature Gran % (Auto) Neut % (Auto) Lymph % (Auto) [place] % (Auto) Eos % (Auto) Baso % (Auto) Absolute Neuts (auto) Absolute Lymphs (auto) Nucleated RBC % PT INR APTT Fibrinogen D-Dimer Quant (PE/DVT) Sodium Potassium Chloride Carbon Dioxide Anion Gap BUN Creatinine Estim Creat Clear Calc Est GFR (MDRD) Af Amer Est GFR (MDRD) Non-Af BUN/Creatinine Ratio Glucose Lactic Acid 2.2 H* Calcium Magnesium Total Bilirubin AST ALT Alkaline Phosphatase Lactate Dehydrogenase Total Creatine Kinase Troponin I C-React Prot Ext Range B-Natriuretic Peptide 704.9 H Total Protein Albumin Globulin Albumin/Globulin Ratio Triglycerides Cholesterol LDL Cholesterol VLDL Cholesterol HDL Cholesterol Procalcitonin < 0.04 TSH COVID-19 ([facility]) 09/15/20 09/15/20 09/15/20 01:45 01:45 02:02 WBC RBC Hgb Hct MCV MCH MCHC RDW Std Deviation RDW Coeff of Damion Plt Count MPV Immature Gran % (Auto) Neut % (Auto) Lymph % (Auto) [place] % (Auto) Eos % (Auto) Baso % (Auto) Absolute Neuts (auto) Absolute Lymphs (auto) Nucleated RBC % PT INR APTT Fibrinogen D-Dimer Quant (PE/DVT) Sodium Potassium Chloride Carbon Dioxide Anion Gap BUN Creatinine Estim Creat Clear Calc Est GFR (MDRD) Af Amer Est GFR (MDRD) Non-Af BUN/Creatinine Ratio Glucose Lactic Acid 1.6 Calcium Magnesium Total Bilirubin AST ALT Alkaline Phosphatase Lactate Dehydrogenase Total Creatine Kinase Troponin I 0.979 H* C-React Prot Ext Range B-Natriuretic Peptide Total Protein Albumin Globulin Albumin/Globulin Ratio Triglycerides Cholesterol LDL Cholesterol VLDL Cholesterol HDL Cholesterol Procalcitonin TSH COVID-19 ([facility]) Not Detected 09/15/20 09/15/20 09/15/20 04:50 04:50 04:50 WBC 11.7 H RBC 4.68 Hgb 14.5 Hct 43.6 MCV 93.2 MCH 31.0 MCHC 33.3 RDW Std Deviation 48.0 H RDW Coeff of [place]ion 14.1 Plt Count 243 MPV 9.2 Immature Gran % (Auto) 0.300 Neut % (Auto) 89.8 H Lymph % (Auto) 6.3 L [place] % (Auto) 3.4 Eos % (Auto) 0.0 Baso % (Auto) 0.2 Absolute Neuts (auto) 10.5 H Absolute Lymphs (auto) 0.73 L Nucleated RBC % 0 PT INR APTT Fibrinogen D-Dimer Quant (PE/DVT) Sodium 138 Potassium 4.2 Chloride 107 Carbon Dioxide 25.0 Anion Gap 6 BUN 23 H Creatinine 1.44 H Estim Creat Clear Calc 38.92 Est GFR (MDRD) Af Amer 61 Est GFR (MDRD) Non-Af 50 L BUN/Creatinine Ratio 16.0 Glucose 152 H Lactic Acid Calcium 8.7 Magnesium 2.0 Total Bilirubin AST ALT Alkaline Phosphatase Lactate Dehydrogenase Total Creatine Kinase Troponin I 20.200 H* C-React Prot Ext Range B-Natriuretic Peptide Total Protein Albumin Globulin Albumin/Globulin Ratio Triglycerides Cholesterol LDL Cholesterol VLDL Cholesterol HDL Cholesterol Procalcitonin TSH 1.31 COVID-19 ([facility]) 09/15/20 09/15/20 04:50 08:25 WBC RBC Hgb Hct MCV MCH MCHC RDW Std Deviation RDW Coeff of Damion Plt Count MPV Immature Gran % (Auto) Neut % (Auto) Lymph % (Auto) [place] % (Auto) Eos % (Auto) Baso % (Auto) Absolute Neuts (auto) Absolute Lymphs (auto) Nucleated RBC % PT 13.8 INR 1.1 APTT 32.3 Fibrinogen D-Dimer Quant (PE/DVT) Sodium Potassium Chloride Carbon Dioxide Anion Gap BUN Creatinine Estim Creat Clear Calc Est GFR (MDRD) Af Amer Est GFR (MDRD) Non-Af BUN/Creatinine Ratio Glucose Lactic Acid Calcium Magnesium Total Bilirubin AST ALT Alkaline Phosphatase Lactate Dehydrogenase Total Creatine Kinase Troponin I C-React Prot Ext Range B-Natriuretic Peptide Total Protein Albumin Globulin Albumin/Globulin Ratio Triglycerides 82 Cholesterol 193 LDL Cholesterol 150 H VLDL Cholesterol 16 HDL Cholesterol 27 L Procalcitonin TSH COVID-19 ([facility]) - Other Studies Radiology: [] reviewed Other Studies: [] Route of nutrition/ use of supplements: [] Nutritional Intake: [] IV Site: [] Edward Catheter: [] - Physical Exam General: Alert, Oriented x3, Cooperative HEENT: Atraumatic, PERRLA, EOMI Neck: Supple, No Nodes Lungs: Diminished Cardiovascular: Tachycardic Abdomen: Soft, Non Tender, Non-Distended Extremities: No edema Skin: No rashes IV Site: Peripheral, without redness Musculoskeletal: No Tenderness to Palpation of Joints or Extremities Neurological: Cranial nerves II-XII grossly intact - Assessment/Plan Antibiotics: [] Assessment/Plan: [] Active and Suspected Problems CHF (congestive heart failure) (Acute) Pneumonia (Acute) Respiratory failure (Acute) Hypoxia, dyspnea, aches, lymphopenia, and recent covid exposure - sx started in past few days. Covid Ag and PCR neg, but suspected false negatives. Lungs are dull to exam, CT with no PE but bilateral groundglass infiltrates, denies any orthopnea or PND. D-dimer mildly elevated. PCT neg. Elevated trop and BNP. Will stop azithro and ceftriaxone. On lovenox 40mg daily. Will start po dex and remdesivir given likely covid. Will follow, thank you, d/w Dr. Aguero.
[2020-09-15] MEDS: Aspirin 81 MG TAB.CHEW PO (12:31)
[2020-09-15] MEDS: Clopidogrel Bisulfate 300 MG Tablet PO (12:31)
[2020-09-15] MEDS: dexAMETHasone 4 MG Tablet 6 MG PO (12:31)
--- NOTE | 2020-09-15 12:46 | PCM.PN.HOSP ---
Patient Problems: Active and Suspected Problems CHF (congestive heart failure) (Acute) Pneumonia (Acute) Respiratory failure (Acute) NSTEMI (non-ST elevated myocardial infarction) (Acute) Subjective: Pt admitted after MN. Marked troponin elevation. COVID suspected and Remdesivir and Dex started with d/c of ABX Vitals/I&O's: Vital Signs Temp Pulse Resp BP Pulse Ox 97.1 F L 70 14 111/68 95 09/15/20 04:00 09/15/20 11:05 09/15/20 11:00 09/15/20 11:00 09/15/20 11:51 Oxygen Flow Rate (L/min) 10 Oxygen Delivery Method Nasal Cannula Weight: 87.5 kg Body Mass Index (BMI) 29.3 Intake and Output for Last 24 Hours 09/13/20 09/14/20 09/15/20 23:59 23:59 23:59 Intake Total 380 / 380 Output Total 1725 / 1725 Balance -1345 / -1345 Microbiology Past 72 Hours 09/14/20 20:55 Mucosa - Nose SARS-CoV-2 Antigen (Rapid) - Final Laboratory Results 09/14/20 20:45: WBC 9.0, RBC 4.48 L, Hgb 14.1, Hct 41.7, MCV 93.1, MCH 31.5, MCHC 33.8, RDW Std Deviation 48.1 H, RDW Coeff of Damion 14.1, Plt Count 233, MPV 9.1, Immature Gran % (Auto) 0.400, Neut % (Auto) 74.4 H, Lymph % (Auto) 15.5 L, [place] % (Auto) 8.7, Eos % (Auto) 0.8, Baso % (Auto) 0.2, Absolute Neuts (auto) 6.7, Absolute Lymphs (auto) 1.40, Nucleated RBC % 0 09/14/20 20:45: Fibrinogen 628 H, D-Dimer Quant (PE/DVT) 1.07 H* 09/14/20 20:45: Sodium 142, Potassium 3.6, Chloride 110 H, Carbon Dioxide 25.0, Anion Gap 7, BUN 24 H, Creatinine 1.52 H, Estim Creat Clear Calc 35.64, Est GFR (MDRD) Af Amer 57 L, Est GFR (MDRD) Non-Af 47 L, BUN/Creatinine Ratio 15.8, Glucose 127 H, Calcium 8.8, Total Bilirubin 0.40, AST 18, ALT 21, Alkaline Phosphatase 106, Lactate Dehydrogenase 191, Total Creatine Kinase 198, Troponin I 0.851 H*, C-React Prot Ext Range 58.40 H, Total Protein 7.0, Albumin 3.5, Globulin 3.5, Albumin/Globulin Ratio 1.0 09/14/20 20:45: Lactic Acid 2.2 H* 09/14/20 20:45: Procalcitonin < 0.04 09/15/20 01:45: B-Natriuretic Peptide 704.9 H 09/15/20 01:45: COVID-19 ([facility]) Not Detected 09/15/20 01:45: Troponin I 0.979 H* 09/15/20 02:02: Lactic Acid 1.6 09/15/20 04:50: WBC 11.7 H, RBC 4.68, Hgb 14.5, Hct 43.6, MCV 93.2, MCH 31.0, MCHC 33.3, RDW Std Deviation 48.0 H, RDW Coeff of Damion 14.1, Plt Count 243, MPV 9.2, Immature Gran % (Auto) 0.300, Neut % (Auto) 89.8 H, Lymph % (Auto) 6.3 L, [place] % (Auto) 3.4, Eos % (Auto) 0.0, Baso % (Auto) 0.2, Absolute Neuts (auto) 10.5 H, Absolute Lymphs (auto) 0.73 L, Nucleated RBC % 0 09/15/20 04:50: Sodium 138, Potassium 4.2, Chloride 107, Carbon Dioxide 25.0, Anion Gap 6, BUN 23 H, Creatinine 1.44 H, Estim Creat Clear Calc 38.92, Est GFR (MDRD) Af Amer 61, Est GFR (MDRD) Non-Af 50 L, BUN/Creatinine Ratio 16.0, Glucose 152 H, Calcium 8.7, Magnesium 2.0, TSH 1.31 09/15/20 04:50: Troponin I 20.200 H* 09/15/20 04:50: Triglycerides 82, Cholesterol 193, LDL Cholesterol 150 H, VLDL Cholesterol 16, HDL Cholesterol 27 L 09/15/20 08:25: PT 13.8, INR 1.1, APTT 32.3 Current Medications Aspirin (Aspirin 81 Mg Tab.Chew) 81 mg PO DAILY@0800 [facility] Last Admin: 09/15/20 12:31 Dose: 81 mg Documented by: Atorvastatin Calcium (Atorvastatin Calcium 40 Mg Tablet) 40 mg PO QHS [facility] Clopidogrel Bisulfate (Clopidogrel Bisulfate 75 Mg Tablet) 75 mg PO DAILY [facility] Dexamethasone (Dexamethasone 4 Mg Tablet) 6 mg PO DAILY [facility] Stop: 09/24/20 10:01 Last Admin: 09/15/20 12:31 Dose: 6 mg Documented by: Enoxaparin Sodium (Enoxaparin 100 Mg/Ml Syringe) 90 mg 1 mg/kg (90 mg) SC Q12@0600,1800 [facility] Furosemide (Furosemide 40 Mg/4 Ml Vial) 40 mg IV DAILY [facility] Last Admin: 09/15/20 08:09 Dose: 40 mg Documented by: Sodium Chloride () 250 mls @ 15 mls/hr IV .[id number] PRN PRN Reason: Saline Flush Sodium Chloride () 250 mls @ 15 mls/hr IV .[id number] PRN PRN Reason: Additional IVPB Infusion Remdesivir 200 mg/ Sodium (Chloride) 250 mls @ 125 mls/hr IV X1 ONE; Protocol Stop: 09/15/20 13:59 Last Admin: 09/15/20 12:32 Dose: 125 mls/hr Documented by: Remdesivir 100 mg/ Sodium (Chloride) 250 mls @ 125 mls/hr IV DAILY [facility]; Protocol Stop: 09/19/20 11:59 Levothyroxine Sodium (Levothyroxine 100 Mcg Tablet) 100 mcg PO DAILY [facility] Last Admin: 09/15/20 04:50 Dose: 100 mcg Documented by: Metoprolol Tartrate (Metoprolol Tartrate 25 Mg Tablet) 12.5 mg PO BID [facility] Sodium Chloride (0.9% Saline Lock 10 Ml Syringe) 10 - 40 ml IV UD PRN PRN Reason: SALINE FLUSH Last Admin: 09/15/20 04:50 Dose: 20 ml Documented by: STROKE Vital Signs/Narrative: Vital Signs Pulse Resp BP Pulse Ox 09/15/20 11:51 95 09/15/20 11:05 70 09/15/20 11:00 102 H 14 111/68 97 09/15/20 10:00 94 17 106/69 94 09/15/20 09:00 108 H 17 122/84 H 97 Medical Necessity - Tobacco Use Smoking Status: Former smoker Assessment/Plan All Active Problems CHF (congestive heart failure) (Acute) Pneumonia (Acute) Respiratory failure (Acute) NSTEMI (non-ST elevated myocardial infarction) (Acute) Acute Hypoxic Respiratory Failure 2/2 COVID PNA and NSTEMI -COVID rapid neg but with recent exposure to known + about 5 days ago -decadron and remdesivir per ID -d/c ABX -Supportive care -ID and Pulm following NSTEMI -Trop to 20 with cycling of enzymes -asa full dose given in ED -asa 81 daily now -statin started today -continue BB -pt was loaded with plavix and Lovenonx -continue daily plavix -lasix given 40 mg daily -monitor closely -ECHO P -Cards consulted--> awaiting input 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
--- NOTE | 2020-09-15 13:26 | CASEMGMT ---
RN CM Note: patient unable to participate in assessment at this time. Juan LEDBETTERN RN ACM
--- NOTE | 2020-09-15 14:16 | PCM.CON.CC ---
Problem List (1) CHF (congestive heart failure) Status: Acute (2) Pneumonia Status: Acute (3) Respiratory failure Status: Acute (4) NSTEMI (non-ST elevated myocardial infarction) Status: Acute Reason for Consult Date of Consultation: 09/15/20 Reason for Consultation: Respiratory failure History of Present Illness: The patient is an 80 year old M, with past medical history listed below, who presented to [facility] on 09/14/2020 secondary to a 3 to 4-day history of progressive shortness of breath. Patient reports this was exacerbated by activity. Patient does report a cough with the use of nebulizer, but otherwise feels there is been no change. Patient denied any fevers or chills. Patient did report that he has a possible exposure on Thanksgiving to a Covid positive patient. In the ER, patient was afebrile, noted to have a systolic murmur and lower extremity edema. An EKG showed septal Q waves with sinus tachycardia, but there was no EKG for comparison. Initial troponin was noted at 0.851 and lactate was 2.2. Rapid and PCR COVID-19 testing were both negative. Creatinine was elevated at 1.52 and glucose was elevated at 127. CPK was 198 and LDH was 191. Procalcitonin was within normal range. Chest x-ray was completed showing bilateral interstitial thickening and infiltrates and this was confirmed with CTA showing no PE, but crazy paving pattern with groundglass opacity and emphysematous changes. While in ER, patient was given IV dexamethasone placed on BiPAP and Lasix. Patient reportedly was 86% on room air, so was admitted to the intensive care unit for further evaluation. While in the intensive care unit, patient was noted to have a significant increase in troponin and a repeat EKG was completed. Patient has remained hemodynamically stable otherwise. On my initial evaluation this morning, patient did have significant conversational dyspnea associated with the BiPAP. Patient did report subjective improvement with the initiation of BiPAP and Lasix therapy. Patient reports a long history of smoking in the past, but is never been formally diagnosed with COPD or used an inhaler. Patient does have a history of hypertension and hypothyroidism, but does not report any cardiac history. Patient denies exposure to asbestos or TB. Review of systems otherwise negative from a constitutional, HEENT, respiratory, cardiovascular, GI, genitourinary, musculoskeletal, skin, neurologic, psychiatric and hematologic system unless stated above. Past Medical History Allergies No Known Allergies Allergy (Verified 09/14/20 20:30) Home Medications: Ambulatory Orders Medication Instructions Recorded Amlodipine [Norvasc] 10 mg PO DAILY 09/14/20 Levothyroxine [Synthroid] 100 mcg PO DAILY 09/14/20 Lisinopril/Hydrochlorothiazide 1 ea PO DAILY 09/14/20 [Lisinopril-Hctz 10-12.5 mg Tab] Metoprolol Tartrate [Lopressor 100 mg PO DAILY 09/14/20 (beta ginny)] Aspirin, Baby 81 mg PO DAILY 09/15/20 Smoking Status: Former smoker - *Family History Maternal History Items: No pertinent history Review of Systems Comment: See HPI Patient Problems: Active and Suspected Problems CHF (congestive heart failure) (Acute) Pneumonia (Acute) Respiratory failure (Acute) Objective: All imagings were personally reviewed and I agree with the formal interpretation with the added comments in the HPI. Patient has not had any pulmonary function test or echocardiogram completed at [facility] previously - Physical Exam Vitals/I&O's: Vital Signs Temp Pulse Resp BP Pulse Ox 36.2 C L 102 H 16 115/73 94 09/15/20 12:00 09/15/20 13:00 09/15/20 13:00 09/15/20 13:00 09/15/20 14:00 Oxygen Flow Rate (L/min) 10 Oxygen Delivery Method Nasal Cannula Weight: 87.5 kg Body Mass Index (BMI) 29.3 Intake and Output for Last 24 Hours 09/13/20 09/14/20 09/15/20 23:59 23:59 23:59 Intake Total 380 / 380 Output Total 1725 / 1725 Balance -1345 / -1345 General: Alert, Oriented x3, Cooperative, No apparent distress, - - Obese. Mild conversational dyspnea associated with talking through BiPAP HEENT: Atraumatic, PERRLA, EOMI, Normocephalic, - - No scleral icterus or injection noted Oral: Moist Mucosa, No Gingival or Mucosal Lesions/ Ulcerations Neck: Supple, No Nodes, Trachea Midline, JVD, Right Lungs: No rhonchi, No wheeze, Diminished, Rales, - - Symmetric expansion Cardiovascular: Normal S1, Normal S2, Murmur - Grade 2 out of 6 systolic ejection murmur at the right sternal border, Tachycardic Abdomen: Bowel Sounds Present, Soft, Non Tender, Non-Distended, Obese Extremities: No clubbing, No cyanosis, Edema - Trace to 1+ Skin: No rashes, No breakdown Musculoskeletal: No Tenderness to Palpation of Joints or Extremities Lymphatic: No Cervical, Supraclavicular, or Inguinal Adenopathy Neurological: Cranial nerves II-XII grossly intact, Neuro grossly intact, Motor Exam 5/5 strength throughout Psych/Mental Status: Alert and oriented to time, place, person, mood and affect Microbiology Past 72 Hours 09/14/20 20:55 Mucosa - Nose SARS-CoV-2 Antigen (Rapid) - Final Laboratory Results 09/14/20 20:45: WBC 9.0, RBC 4.48 L, Hgb 14.1, Hct 41.7, MCV 93.1, MCH 31.5, MCHC 33.8, RDW Std Deviation 48.1 H, RDW Coeff of Damion 14.1, Plt Count 233, MPV 9.1, Immature Gran % (Auto) 0.400, Neut % (Auto) 74.4 H, Lymph % (Auto) 15.5 L, Noble % (Auto) 8.7, Eos % (Auto) 0.8, Baso % (Auto) 0.2, Absolute Neuts (auto) 6.7, Absolute Lymphs (auto) 1.40, Nucleated RBC % 0 09/14/20 20:45: Fibrinogen 628 H, D-Dimer Quant (PE/DVT) 1.07 H* 09/14/20 20:45: Sodium 142, Potassium 3.6, Chloride 110 H, Carbon Dioxide 25.0, Anion Gap 7, BUN 24 H, Creatinine 1.52 H, Estim Creat Clear Calc 35.64, Est GFR (MDRD) Af Amer 57 L, Est GFR (MDRD) Non-Af 47 L, BUN/Creatinine Ratio 15.8, Glucose 127 H, Calcium 8.8, Total Bilirubin 0.40, AST 18, ALT 21, Alkaline Phosphatase 106, Lactate Dehydrogenase 191, Total Creatine Kinase 198, Troponin I 0.851 H*, C-React Prot Ext Range 58.40 H, Total Protein 7.0, Albumin 3.5, Globulin 3.5, Albumin/Globulin Ratio 1.0 09/14/20 20:45: Lactic Acid 2.2 H* 09/14/20 20:45: Procalcitonin < 0.04 09/15/20 01:45: B-Natriuretic Peptide 704.9 H 09/15/20 01:45: COVID-19 ([facility]) Not Detected 09/15/20 01:45: Troponin I 0.979 H* 09/15/20 02:02: Lactic Acid 1.6 09/15/20 04:50: WBC 11.7 H, RBC 4.68, Hgb 14.5, Hct 43.6, MCV 93.2, MCH 31.0, MCHC 33.3, RDW Std Deviation 48.0 H, RDW Coeff of Damion 14.1, Plt Count 243, MPV 9.2, Immature Gran % (Auto) 0.300, Neut % (Auto) 89.8 H, Lymph % (Auto) 6.3 L, Noble % (Auto) 3.4, Eos % (Auto) 0.0, Baso % (Auto) 0.2, Absolute Neuts (auto) 10.5 H, Absolute Lymphs (auto) 0.73 L, Nucleated RBC % 0 09/15/20 04:50: Sodium 138, Potassium 4.2, Chloride 107, Carbon Dioxide 25.0, Anion Gap 6, BUN 23 H, Creatinine 1.44 H, Estim Creat Clear Calc 38.92, Est GFR (MDRD) Af Amer 61, Est GFR (MDRD) Non-Af 50 L, BUN/Creatinine Ratio 16.0, Glucose 152 H, Calcium 8.7, Magnesium 2.0, TSH 1.31 09/15/20 04:50: Troponin I 20.200 H* 09/15/20 04:50: Triglycerides 82, Cholesterol 193, LDL Cholesterol 150 H, VLDL Cholesterol 16, HDL Cholesterol 27 L 09/15/20 08:25: PT 13.8, INR 1.1, APTT 32.3 Current Medications Aspirin (Aspirin 81 Mg Tab.Chew) 81 mg PO DAILY@0800 [facility] Last Admin: 09/15/20 12:31 Dose: 81 mg Documented by: Atorvastatin Calcium (Atorvastatin Calcium 40 Mg Tablet) 40 mg PO QHS [facility] Clopidogrel Bisulfate (Clopidogrel Bisulfate 75 Mg Tablet) 75 mg PO DAILY [facility] Dexamethasone (Dexamethasone 4 Mg Tablet) 6 mg PO DAILY [facility] Stop: 09/24/20 10:01 Last Admin: 09/15/20 12:31 Dose: 6 mg Documented by: Enoxaparin Sodium (Enoxaparin 100 Mg/Ml Syringe) 90 mg 1 mg/kg (90 mg) SC Q12@0600,1800 [facility] Furosemide (Furosemide 40 Mg/4 Ml Vial) 40 mg IV DAILY [facility] Last Admin: 09/15/20 08:09 Dose: 40 mg Documented by: Sodium Chloride () 250 mls @ 15 mls/hr IV .[id number] PRN PRN Reason: Saline Flush Sodium Chloride () 250 mls @ 15 mls/hr IV .[id number] PRN PRN Reason: Additional IVPB Infusion Remdesivir 100 mg/ Sodium (Chloride) 250 mls @ 125 mls/hr IV DAILY [facility]; Protocol Stop: 09/19/20 11:59 Levothyroxine Sodium (Levothyroxine 100 Mcg Tablet) 100 mcg PO DAILY [facility] Last Admin: 09/15/20 04:50 Dose: 100 mcg Documented by: Metoprolol Tartrate (Metoprolol Tartrate 25 Mg Tablet) 12.5 mg PO BID [facility] Sodium Chloride (0.9% Saline Lock 10 Ml Syringe) 10 - 40 ml IV UD PRN PRN Reason: SALINE FLUSH Last Admin: 09/15/20 04:50 Dose: 20 ml Documented by: Clinical Impression(s) from Imaging Studies Chest X-Ray 09/14/20 22:00 IMPRESSION: Bilateral interstitial thickening greatest in the lung bases with superimposed airspace opacities seen predominantly in the right lung base and minimal atelectasis in the left lung base. at 2224 Reported and signed by: Kasia Mccoy DO Electronically Signed: Kasia Mccoy DO at 22:23 EST Tel , Service support , Chest CTA 09/14/20 23:12 Assessment/Plan Active and Suspected Problems CHF (congestive heart failure) (Acute) Pneumonia (Acute) Respiratory failure (Acute) RECOMMENDATIONS: 1. Continue advanced respiratory precautions 2. Appreciate cardiology and ID input 3. Wean oxygen as tolerated 4. Agree with diuresis 5. Consider systemic anticoagulation IMPRESSIONS: 1. Acute hypoxic respiratory failure secondary to probable congestive heart failure Patient does have a known exposure to COVID-19 5 days ago. Negative PCR and antigen testing may be secondary to early testing. Would recommend continued advanced respiratory isolation. However, it is unlikely the patient would have a viral load high enough to cause this level of lung disease without being able to test positive on PCR testing. Given the increase in troponin, clinical suggestion would be that this is more related to congestive heart failure with flash pulmonary edema given elevated BNP. Agree with medical optimization, anticoagulation and diuretic therapy. However, patient may decompensate in the next 3 to 5 days secondary to COVID-19. Echocardiogram has been ordered. 2. Probable COVID-19 pneumonia in setting of COPD Patient does have a smoking history and denies any history of COPD. However, patient does have significant emphysematous changes noted on chest imaging. Infectious disease has been consulted. Defer to them on initiation of remdesivir. Decadron would be appropriate for both a COPD and Covid perspective. Reasonable to watch off of antibiotics from my perspective. 3. 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 Clinical suspicion for prerenal etiology. We will continue to support hemodynamics and monitor on a daily basis. No indication for renal replacement therapy. 4. Hypertension/hypothyroidism/advanced age/obesity Complicates care, management, recovery and prognosis. Would hold antihypertensive medications at this time and prioritize optimization for non-ST elevation IL. Okay to continue Synthroid from my perspective. Can initiate a p.o. diet if able to stay off of BiPAP for significant period of time. Inpatient E&M: 94641 Init Hosp L3
--- NOTE | 2020-09-15 14:25 | PCM.CONS.C ---
Reason for Consult Date of Consultation: 09/15/20 Reason for Consultation: NSTEMI. CHF. Pneumonia History of Present Illness: The patient is a 80 year old white male who is referred for concerns of non-ST segment elevation MS, CHF, superimposed upon pneumonia. He denies any cardiovascular history. He has had progressive shortness of breath and dyspnea over the last 2 to 3 days. As it worsened he presented to the hospital for further evaluation. He was thought to have evidence of underlying hypoxemia thought secondary to a pneumonia. Based upon his exposure to COVID-19 recently and his radiologic studies he underwent COVID-19 testing with both the antigen test and the PCR test. They were reported as negative. However per infectious disease and the pulmonology team he has been treated as positive as his tests may be falsely negative based upon the timing of his exposure and thus he was placed in the ICU in respiratory precautions and based upon his requirement for continuous BiPAP therapy. He denies any chest discomfort. He has not necessarily complained of classic acute orthopnea or PND or peripheral pitting edema suspicious for acute CHF. There has been no near syncope or syncope. As part of his evaluation he had cardiac enzymes performed. They were abnormal compatible with a non-ST segment elevation MS. He had an ECG performed which demonstrated sinus rhythm with an anteroseptal MS pattern of indeterminate age as well as ST/T wave changes concerning for myocardial ischemia which on repeat ECG status post oxygen therapy appear to be improved. His radiologic studies demonstrated bilateral infiltrates as well as concerns of increased pulmonary vascularity. He has been treated with O2 support and was placed on IV antibiotics. He is subsequently been evaluated by infectious disease and his IV antibiotics were discontinued. He has been placed on corticosteroid therapy and remdesivir therapy. From a cardiovascular standpoint he has been placed on antiplatelet therapy/anticoagulant therapy as well as beta-ginny therapy as tolerated and lipid-lowering therapy. Past Medical History Allergies/Adverse Reactions: Allergies No Known Allergies Allergy (Verified 09/14/20 20:30) Home Medications: Ambulatory Orders Medication Instructions Recorded Amlodipine [Norvasc] 10 mg PO DAILY 09/14/20 Levothyroxine [Synthroid] 100 mcg PO DAILY 09/14/20 Lisinopril/Hydrochlorothiazide 1 ea PO DAILY 09/14/20 [Lisinopril-Hctz 10-12.5 mg Tab] Metoprolol Tartrate [Lopressor 100 mg PO DAILY 09/14/20 (beta ginny)] Aspirin, Baby 81 mg PO DAILY 09/15/20 - *Family History Maternal History Items: No pertinent history Smoking Status: Former smoker Alcohol: None Drugs: None Review of Systems - Review of Systems General: Denies: Fever, Night Sweats, Fatigue Cardiovascular: Reports: Shortness of Breath, Shortness of Breath at Rest, Shortness of Breath with Exertion. Denies: Chest Discomfort, Orthopnea, PND, Peripheral Edema, Palpitations, Lightheadedness, Dizziness, Near Syncope, Syncope Respiratory: Reports: Shortness of Breath. Denies: Cough, Sputum Production, Hemoptysis Gastrointestinal: Denies: Hematemesis, Hematochezia, Melena Genitourinary: Denies: Dysuria, Hematuria Skin: Denies: Rash Subjectve: This is an 80-year-old white male currently wearing BiPAP therapy. Objective: Vital Signs Temp Pulse Resp BP Pulse Ox 97.2 F L 102 H 16 115/73 94 09/15/20 12:00 09/15/20 13:00 09/15/20 13:00 09/15/20 13:00 09/15/20 14:00 Oxygen Flow Rate (L/min) 10 Oxygen Delivery Method Nasal Cannula Weight: 192 lb 14.472 oz Body Mass Index (BMI) 29.3 Intake and Output for Last 24 Hours 09/13/20 09/14/20 09/15/20 23:59 23:59 23:59 Intake Total 380 / 380 Output Total 1725 / 1725 Balance -1345 / -1345 General: Awake, Alert, Oriented x 3, Cooperative, Ill Appearing HEENT: Atraumatic, Normocephalic, PERRL, EOMI, Sclera Non Icteric Neck: Supple, Good ROM, No JVD Lungs: Rhonchi Cardiovascular: Regular Rhythm, Normal S1, Normal S2 Abdomen: Bowel Sounds Present, Soft Extremities: No edema Neurological: No Focal Motor or Sensory Deficit Psych/Mental Status: Appropriate 09/14/20 20:45: WBC 9.0, RBC 4.48 L, Hgb 14.1, Hct 41.7, MCV 93.1, MCH 31.5, MCHC 33.8, Plt Count 233, MPV 9.1, Immature Gran % (Auto) 0.400, Neut % (Auto) 74.4 H, Lymph % (Auto) 15.5 L, [place] % (Auto) 8.7, Eos % (Auto) 0.8, Baso % (Auto) 0.2, Absolute Neuts (auto) 6.7, Nucleated RBC % 0 09/14/20 20:45: D-Dimer Quant (PE/DVT) 1.07 H* 09/14/20 20:45: Sodium 142, Potassium 3.6, Chloride 110 H, Carbon Dioxide 25.0, Anion Gap 7, BUN 24 H, Creatinine 1.52 H, Est GFR (MDRD) Af Amer 57 L, Est GFR (MDRD) Non-Af 47 L, BUN/Creatinine Ratio 15.8, Glucose 127 H, Calcium 8.8, Total Bilirubin 0.40, Troponin I 0.851 H* 09/14/20 20:45: Lactic Acid 2.2 H* 09/15/20 01:45: B-Natriuretic Peptide 704.9 H 09/15/20 01:45: Troponin I 0.979 H* 09/15/20 02:02: Lactic Acid 1.6 09/15/20 04:50: WBC 11.7 H, RBC 4.68, Hgb 14.5, Hct 43.6, MCV 93.2, MCH 31.0, MCHC 33.3, Plt Count 243, MPV 9.2, Immature Gran % (Auto) 0.300, Neut % (Auto) 89.8 H, Lymph % (Auto) 6.3 L, [place] % (Auto) 3.4, Eos % (Auto) 0.0, Baso % (Auto) 0.2, Absolute Neuts (auto) 10.5 H, Nucleated RBC % 0 09/15/20 04:50: Sodium 138, Potassium 4.2, Chloride 107, Carbon Dioxide 25.0, Anion Gap 6, BUN 23 H, Creatinine 1.44 H, Est GFR (MDRD) Af Amer 61, Est GFR (MDRD) Non-Af 50 L, BUN/Creatinine Ratio 16.0, Glucose 152 H, Calcium 8.7, Magnesium 2.0 09/15/20 04:50: Troponin I 20.200 H* 09/15/20 04:50: Triglycerides 82, Cholesterol 193, LDL Cholesterol 150 H, VLDL Cholesterol 16, HDL Cholesterol 27 L 09/15/20 08:25: PT 13.8, INR 1.1, APTT 32.3 Rhythm: Sinus rhythm EKG: As noted above ECHO: Pending CXR: Please see official report Chest CT Scan: Please see official report Assessment/Plan 1. Non-ST segment elevation MS At the present time he presents with findings compatible with an acute non-ST segment elevation MS. It is unclear as to whether this was a primary event versus a secondary event brought out by his pneumonia and hypoxemia superimposed upon an underlying previously undiagnosed cardiovascular condition. At the moment he appears without acute symptoms. He is being monitored. His enzymes and ECG will be followed. An echocardiogram has been requested to evaluate his left ventricular wall motion and overall systolic function. He will continue medical therapy such as aspirin, antiplatelets, anticoagulants, nitrates as needed, beta-blockers, lipid-lowering agents, etc. Ideally he would be considered for further evaluation of his coronary anatomy with diagnostic cardiac catheterization. However this may be on temporary hold pending further evaluation/care and stabilization of his pulmonary status with respect to diagnosis and therapy barring unforeseen acute event. 2. CHF He does appear to have an element of CHF. He has gained some improvement in his clinical status/O2 status status post IV diuresis. Would be reasonable to continue diuretic therapy and monitor his clinical status and his radiologic findings. In the interim he will continue evaluation care as noted. 3. Pneumonia He has been diagnosed with pneumonia. At the moment it appears this is considered COVID-19 positive despite his negative studies potentially based upon his exposure time to other COVID-19 positive people and his current tests being performed too early to demonstrate positivity. He has been evaluated by infectious disease and pulmonology. He is continuing medical therapy as described above. He is COVID-19 status/respiratory status can play a role with respect to his overall cardiovascular diagnosis and care. Comment: The patient's case was discussed and reviewed with the patient and Dr. Aguero. This note was generated using a voice recognition system and there may be incorrect words, spelling or punctuation that were not noted when reviewing the office note prior to saving.
[2020-09-15 15:40] LABS: Anion Gap 6 (5-15); BUN 25 mg/dL (7-18); BUN/Creat Ratio 20.2 RATIO (10-20); Calcium,Total 8.9 mg/dL (8.5-10.1); Chloride 107 mmol/L (98-107); Creatinine, Serum 1.24 mg/dL (0.70-1.30); EST Glomerular Filtration Rate 60 mL/min (>60); Est Glom Filt Rate - Afr Amer 72 mL/min (>60); Glucose 126 mg/dL (74-106); Phosphorus 3.1 mg/dL (2.5-4.9); Potassium 4.1 mmol/L (3.5-5.1); Sodium Level 141 mmol/L (136-145)
[2020-09-15] MEDS: Enoxaparin 100 MG/ML Syringe 90 MG SC (17:28)
[2020-09-15] MEDS: Atorvastatin Calcium 40 MG Tablet PO (20:07)
[2020-09-15] MEDS: Metoprolol Tartrate 25 MG Tablet 12.5 MG PO (20:07)
[2020-09-16] VITALS (31 sets, daily range): BP systolic 97–131; BP diastolic 42–101; PULSE 71–133; RESP 12–26; TEMP 36.5–36.7; O2SAT 90–98
[2020-09-16 04:15] LABS: Hematocrit 41.4 % (40-54); Hemoglobin 13.6 g/dL (13.0-16.5); Mean Corp Hgb Conc 32.9 g/dL (32-36); Mean Corpuscular Hgb 30.8 pg (27.0-32.0); Mean Corpuscular Volume 93.7 fL (80-94); Mean Platelet Vol. 9.6 fl (6.2-12.0); Platelet Count 261 K/mm3 (150-450); RBC Distribution Width CV 14.1 % (11.6-14.6); RBC Distribution Width SD 48.5 fl (35.1-43.9); Red Blood Count 4.42 M/mm3 (4.6-6.2); White Blood Count 14.9 K/mm3 (4.4-11.0)
[2020-09-16 04:25] LABS: ALB/GLOB Ratio 0.8 RATIO (0.9-2.4); AST(SGOT) 72 U/L (15-37); Alanine Aminotransfer ALT/SGPT 34 U/L (16-61); Albumin, Serum 3.1 g/dL (3.2-5.0); Alkaline Phosphatase 92 U/L (45-117); Anion Gap 6 (5-15); BUN 33 mg/dL (7-18); Chloride 107 mmol/L (98-107); Creatinine, Serum 1.18 mg/dL (0.70-1.30); EST Glomerular Filtration Rate 63 mL/min (>60); Est Glom Filt Rate - Afr Amer 76 mL/min (>60); Globulin 3.8 g/dL (2.2-4.2); Glucose 127 mg/dL (74-106); Protein, Total 6.9 g/dL (6.4-8.2); Sodium Level 140 mmol/L (136-145)
[2020-09-16] MEDS: Levothyroxine 100 MCG Tablet PO (05:27)
[2020-09-16] MEDS: Enoxaparin 100 MG/ML Syringe 90 MG SC ×2 (05:27→18:01)
[2020-09-16] MEDS: 0.9% Saline Lock 10 ML Syringe IV (05:27)
--- NOTE | 2020-09-16 07:30 | PN_ITS ---
Subjective: The patient was seen and examined at the bedside this morning. Events from the last 24 hours have been reviewed. The patient is currently afebrile, hemodynamically stable and maintaining appropriate oxygen saturations on 10 L/min high flow nasal cannula. The patient did tolerate BiPAP overnight for a few hours. Troponin yesterday peaked at 29.9. The patient is currently receiving Decadron and remdesivir, along with scheduled IV Lasix. The patient is currently on therapeutic Lovenox as well. Renal and liver function are stable. Objective: The patient's most recent lab work, culture data and imaging studies have all been personally reviewed. Surface echocardiogram dated September 15 revealed moderate segmental systolic dysfunction with an ejection fraction of 30%. Right ventricular systolic pressure was estimated to be 50 mmHg. Coronavirus antigen testing was negative on September 14. Blood cultures are pending. General: Alert, Cooperative HEENT: Atraumatic, Normocephalic Oral: No Gingival or Mucosal Lesions/ Ulcerations Neck: Supple, No Nodes, Trachea Midline Lungs: Diminished, Rales Cardiovascular: Regular rate, Regular Rhythm, Murmur Abdomen: Bowel Sounds Present, Soft, Non Tender Extremities: No clubbing, No cyanosis, Edema Skin: No breakdown Musculoskeletal: No Muscle Wasting Lymphatic: No Cervical, Supraclavicular, or Inguinal Adenopathy Neurological: Cranial nerves II-XII grossly intact, Neuro grossly intact Psych/Mental Status: Normal Affect, Appropriate Vital Signs Temp Pulse Resp BP Pulse Ox 97.8 F 98 15 110/69 91 09/16/20 00:00 09/16/20 06:00 09/16/20 06:00 09/16/20 06:00 09/16/20 06:00 Oxygen Flow Rate (L/min) 10 Oxygen Delivery Method Bi-pap Weight: 192 lb 14.472 oz Body Mass Index (BMI) 29.3 Intake and Output for Last 24 Hours 09/14/20 09/15/20 09/16/20 23:59 23:59 23:59 Intake Total 780 / 780 120 / 120 Output Total 2175 / 2275 600 / 600 Balance -1395 / -1495 -480 / -480 Labs (Last 48 Hours) 09/14/20 09/14/20 09/14/20 20:45 20:45 20:45 WBC 9.0 RBC 4.48 L Hgb 14.1 Hct 41.7 MCV 93.1 MCH 31.5 MCHC 33.8 RDW Std Deviation 48.1 H RDW Coeff of Damion 14.1 Plt Count 233 MPV 9.1 Immature Gran % (Auto) 0.400 Neut % (Auto) 74.4 H Lymph % (Auto) 15.5 L [place] % (Auto) 8.7 Eos % (Auto) 0.8 Baso % (Auto) 0.2 Absolute Neuts (auto) 6.7 Absolute Lymphs (auto) 1.40 Nucleated RBC % 0 PT INR APTT Fibrinogen 628 H D-Dimer Quant (PE/DVT) 1.07 H* Sodium 142 Potassium 3.6 Chloride 110 H Carbon Dioxide 25.0 Anion Gap 7 BUN 24 H Creatinine 1.52 H Estim Creat Clear Calc 35.64 Est GFR (MDRD) Af Amer 57 L Est GFR (MDRD) Non-Af 47 L BUN/Creatinine Ratio 15.8 Glucose 127 H Lactic Acid Calcium 8.8 Phosphorus Magnesium Total Bilirubin 0.40 AST 18 ALT 21 Alkaline Phosphatase 106 Lactate Dehydrogenase 191 Total Creatine Kinase 198 Troponin I 0.851 H* C-React Prot Ext Range 58.40 H B-Natriuretic Peptide Total Protein 7.0 Albumin 3.5 Globulin 3.5 Albumin/Globulin Ratio 1.0 Triglycerides Cholesterol LDL Cholesterol VLDL Cholesterol HDL Cholesterol Procalcitonin TSH COVID-19 ([facility]) 09/14/20 09/14/20 09/15/20 20:45 20:45 01:45 WBC RBC Hgb Hct MCV MCH MCHC RDW Std Deviation RDW Coeff of Damion Plt Count MPV Immature Gran % (Auto) Neut % (Auto) Lymph % (Auto) [place] % (Auto) Eos % (Auto) Baso % (Auto) Absolute Neuts (auto) Absolute Lymphs (auto) Nucleated RBC % PT INR APTT Fibrinogen D-Dimer Quant (PE/DVT) Sodium Potassium Chloride Carbon Dioxide Anion Gap BUN Creatinine Estim Creat Clear Calc Est GFR (MDRD) Af Amer Est GFR (MDRD) Non-Af BUN/Creatinine Ratio Glucose Lactic Acid 2.2 H* Calcium Phosphorus Magnesium Total Bilirubin AST ALT Alkaline Phosphatase Lactate Dehydrogenase Total Creatine Kinase Troponin I C-React Prot Ext Range B-Natriuretic Peptide 704.9 H Total Protein Albumin Globulin Albumin/Globulin Ratio Triglycerides Cholesterol LDL Cholesterol VLDL Cholesterol HDL Cholesterol Procalcitonin < 0.04 TSH COVID-19 ([facility]) 09/15/20 09/15/20 09/15/20 01:45 01:45 02:02 WBC RBC Hgb Hct MCV MCH MCHC RDW Std Deviation RDW Coeff of Damion Plt Count MPV Immature Gran % (Auto) Neut % (Auto) Lymph % (Auto) [place] % (Auto) Eos % (Auto) Baso % (Auto) Absolute Neuts (auto) Absolute Lymphs (auto) Nucleated RBC % PT INR APTT Fibrinogen D-Dimer Quant (PE/DVT) Sodium Potassium Chloride Carbon Dioxide Anion Gap BUN Creatinine Estim Creat Clear Calc Est GFR (MDRD) Af Amer Est GFR (MDRD) Non-Af BUN/Creatinine Ratio Glucose Lactic Acid 1.6 Calcium Phosphorus Magnesium Total Bilirubin AST ALT Alkaline Phosphatase Lactate Dehydrogenase Total Creatine Kinase Troponin I 0.979 H* C-React Prot Ext Range B-Natriuretic Peptide Total Protein Albumin Globulin Albumin/Globulin Ratio Triglycerides Cholesterol LDL Cholesterol VLDL Cholesterol HDL Cholesterol Procalcitonin TSH COVID-19 ([facility]) Not Detected 09/15/20 09/15/20 09/15/20 04:50 04:50 04:50 WBC 11.7 H RBC 4.68 Hgb 14.5 Hct 43.6 MCV 93.2 MCH 31.0 MCHC 33.3 RDW Std Deviation 48.0 H RDW Coeff of Damion 14.1 Plt Count 243 MPV 9.2 Immature Gran % (Auto) 0.300 Neut % (Auto) 89.8 H Lymph % (Auto) 6.3 L [place] % (Auto) 3.4 Eos % (Auto) 0.0 Baso % (Auto) 0.2 Absolute Neuts (auto) 10.5 H Absolute Lymphs (auto) 0.73 L Nucleated RBC % 0 PT INR APTT Fibrinogen D-Dimer Quant (PE/DVT) Sodium 138 Potassium 4.2 Chloride 107 Carbon Dioxide 25.0 Anion Gap 6 BUN 23 H Creatinine 1.44 H Estim Creat Clear Calc 38.92 Est GFR (MDRD) Af Amer 61 Est GFR (MDRD) Non-Af 50 L BUN/Creatinine Ratio 16.0 Glucose 152 H Lactic Acid Calcium 8.7 Phosphorus Magnesium 2.0 Total Bilirubin AST ALT Alkaline Phosphatase Lactate Dehydrogenase Total Creatine Kinase Troponin I 20.200 H* C-React Prot Ext Range B-Natriuretic Peptide Total Protein Albumin Globulin Albumin/Globulin Ratio Triglycerides Cholesterol LDL Cholesterol VLDL Cholesterol HDL Cholesterol Procalcitonin TSH 1.31 COVID-19 ([facility]) 09/15/20 09/15/20 09/15/20 04:50 08:25 15:00 WBC RBC Hgb Hct MCV MCH MCHC RDW Std Deviation RDW Coeff of Damion Plt Count MPV Immature Gran % (Auto) Neut % (Auto) Lymph % (Auto) [place] % (Auto) Eos % (Auto) Baso % (Auto) Absolute Neuts (auto) Absolute Lymphs (auto) Nucleated RBC % PT 13.8 INR 1.1 APTT 32.3 Fibrinogen D-Dimer Quant (PE/DVT) Sodium Potassium Chloride Carbon Dioxide Anion Gap BUN Creatinine Estim Creat Clear Calc Est GFR (MDRD) Af Amer Est GFR (MDRD) Non-Af BUN/Creatinine Ratio Glucose Lactic Acid Calcium Phosphorus Magnesium Total Bilirubin AST ALT Alkaline Phosphatase Lactate Dehydrogenase Total Creatine Kinase Troponin I 29.900 H* C-React Prot Ext Range B-Natriuretic Peptide Total Protein Albumin Globulin Albumin/Globulin Ratio Triglycerides 82 Cholesterol 193 LDL Cholesterol 150 H VLDL Cholesterol 16 HDL Cholesterol 27 L Procalcitonin TSH COVID-19 ([facility]) 09/15/20 09/16/20 09/16/20 15:00 03:50 03:50 WBC 14.9 H RBC 4.42 L Hgb 13.6 Hct 41.4 MCV 93.7 MCH 30.8 MCHC 32.9 RDW Std Deviation 48.5 H RDW Coeff of Damion 14.1 Plt Count 261 MPV 9.6 Immature Gran % (Auto) Neut % (Auto) Lymph % (Auto) [place] % (Auto) Eos % (Auto) Baso % (Auto) Absolute Neuts (auto) Absolute Lymphs (auto) Nucleated RBC % PT INR APTT Fibrinogen D-Dimer Quant (PE/DVT) Sodium 141 140 Potassium 4.1 4.0 Chloride 107 107 Carbon Dioxide 28.0 27.0 Anion Gap 6 6 BUN 25 H 33 H Creatinine 1.24 1.18 Estim Creat Clear Calc 45.20 47.50 Est GFR (MDRD) Af Amer 72 76 Est GFR (MDRD) Non-Af 60 63 BUN/Creatinine Ratio 20.2 H 28.0 H Glucose 126 H 127 H Lactic Acid Calcium 8.9 9.0 Phosphorus 3.1 Magnesium 2.0 Total Bilirubin 0.40 AST 72 H ALT 34 Alkaline Phosphatase 92 Lactate Dehydrogenase Total Creatine Kinase Troponin I C-React Prot Ext Range B-Natriuretic Peptide Total Protein 6.9 Albumin 3.1 L Globulin 3.8 Albumin/Globulin Ratio 0.8 L Triglycerides Cholesterol LDL Cholesterol VLDL Cholesterol HDL Cholesterol Procalcitonin TSH COVID-19 ([facility]) Microbiology 09/14/20 20:55 Mucosa - Nose SARS-CoV-2 Antigen (Rapid) - Final Clinical Impression(s) from Imaging Studies Chest X-Ray 09/14/20 22:00 IMPRESSION: Bilateral interstitial thickening greatest in the lung bases with superimposed airspace opacities seen predominantly in the right lung base and minimal atelectasis in the left lung base. at 2224 Reported and signed by: Kasia Mccoy DO Electronically Signed: Kasia Mccoy DO at 22:23 EST Tel , Service support , Chest CTA 09/14/20 23:12 Chest X-Ray 09/15/20 05:55 IMPRESSION: Increasing pulmonary infiltrates and pleural effusions. Electronically Signed: Sim Trevino DO at 21:20 EST Tel [phone], Service support , Medical Necessity - Tobacco Use Smoking Status: Former smoker Assessment/Plan All Active Problems CHF (congestive heart failure) (Acute) Pneumonia (Acute) Respiratory failure (Acute) NSTEMI (non-ST elevated myocardial infarction) (Acute) RECOMMENDATIONS: 1. Continue to wean oxygen to maintain saturations at or above 90%. 2. Continue scheduled IV Lasix and therapeutic Lovenox. 3. Continue Decadron and remdesivir. 4. Encourage incentive spirometer use and mobilize patient as tolerated. IMPRESSIONS: 1. Acute hypoxic respiratory failure Likely multifactorial in etiology. COVID-19 pneumonia and decompensated heart failure are both considerations. The patient remains on treatment for p resumptive coronavirus, despite negative testing. In addition, he remains on a diuretic regimen under the discretion of cardiology. The patient will be continued on therapeutic Lovenox, scheduled IV Lasix, Decadron and remdesivir. Continue to wean supplemental oxygen to maintain saturations at or above 90%. Encourage incentive spirometer use and mobilize patient as tolerated. 2. Non-ST segment elevation [place]/decompensated heart failure Plan to continue current supportive measures under discretion of cardiology. Continue diuretic therapy as tolerated by hemodynamics and renal function. 3. Chronic kidney disease/hypertension/hypothyroidism/obesity/advanced age Complicates care, management, recovery and prognosis. Continue Synthroid per home regimen. This note was generated with [employer] dictation software. It may contain incorrect words, spelling, and punctuation that were not noted in checking the note before signing. Inpatient E&M: 62093 [facility] L[facility]
[2020-09-16] MEDS: Metoprolol Tartrate 25 MG Tablet 12.5 MG PO (08:11)
[2020-09-16] MEDS: dexAMETHasone 4 MG Tablet 6 MG PO (08:11)
[2020-09-16] MEDS: Clopidogrel Bisulfate 75 MG Tablet PO (08:12)
[2020-09-16] MEDS: Aspirin 81 MG TAB.CHEW PO (08:12)
[2020-09-16] MEDS: Furosemide 40 MG/4 ML Vial IV (08:12)
--- NOTE | 2020-09-16 10:35 | PN_ITS ---
Patient Problems: Active and Suspected Problems CHF (congestive heart failure) (Acute) Pneumonia (Acute) Respiratory failure (Acute) NSTEMI (non-ST elevated myocardial infarction) (Acute) Subjective: Pt states that he is feeling much better today. No issues overnight. On 10 L HFNC. Denies SOB. Notes that his HR is up but his BB dose is lower than he takes at home. Vitals/I&O's: Vital Signs Temp Pulse Resp BP Pulse Ox 97.8 F 115 H 15 123/73 H 91 09/16/20 00:00 09/16/20 08:11 09/16/20 06:00 09/16/20 08:11 09/16/20 06:00 Oxygen Flow Rate (L/min) 10 Oxygen Delivery Method Bi-pap Weight: 87.5 kg Body Mass Index (BMI) 29.3 Intake and Output for Last 24 Hours 09/14/20 09/15/20 09/16/20 23:59 23:59 23:59 Intake Total 780 / 780 120 / 120 Output Total 2175 / 2275 1325 / 1325 Balance -1395 / -1495 -1205 / -1205 General: Alert, Oriented x3, Cooperative, No apparent distress, Well developed, Well nourished, - - older WM lying in bed on HFNC and watching TV HEENT: Atraumatic, Normocephalic Oral: Moist Mucosa, No Gingival or Mucosal Lesions/ Ulcerations Neck: Supple, Trachea Midline, Thyroid Normal Size and Texture Lungs: No rhonchi, No wheeze, No rales, Diminished Cardiovascular: Regular Rhythm, Normal S1, Normal S2, No murmurs, No Ectopic Activity, No rub noted, No Gallop, Tachycardic - mild Abdomen: Bowel Sounds Present, Soft, Non Tender, Non-Distended, No Hepato- splenomegaly, No hernias noted Extremities: No clubbing, No cyanosis, No edema, Capillary Refill Less than 3 Seconds, Peripheral Pulses Normal Skin: No rashes, No breakdown Neurological: Cranial nerves II-XII grossly intact, Neuro grossly intact Psych/Mental Status: Normal Affect, Appropriate Microbiology Past 72 Hours 09/14/20 20:55 Mucosa - Nose SARS-CoV-2 Antigen (Rapid) - Final Laboratory Results 09/15/20 15:00: Troponin I 29.900 H* 09/15/20 15:00: Sodium 141, Potassium 4.1, Chloride 107, Carbon Dioxide 28.0, Anion Gap 6, BUN 25 H, Creatinine 1.24, Estim Creat Clear Calc 45.20, Est GFR (MDRD) Af Amer 72, Est GFR (MDRD) Non-Af 60, BUN/Creatinine Ratio 20.2 H, Glu cose 126 H, Calcium 8.9, Phosphorus 3.1, Magnesium 2.0 09/16/20 03:50: WBC 14.9 H, RBC 4.42 L, Hgb 13.6, Hct 41.4, MCV 93.7, MCH 30.8, MCHC 32.9, RDW Std Deviation 48.5 H, RDW Coeff of Damion 14.1, Plt Count 261, MPV 9.6 09/16/20 03:50: Sodium 140, Potassium 4.0, Chloride 107, Carbon Dioxide 27.0, Anion Gap 6, BUN 33 H, Creatinine 1.18, Estim Creat Clear Calc 47.50, Est GFR (MDRD) Af Amer 76, Est GFR (MDRD) Non-Af 63, BUN/Creatinine Ratio 28.0 H, Glucose 127 H, Calcium 9.0, Total Bilirubin 0.40, AST 72 H, ALT 34, Alkaline Phosphatase 92, Total Protein 6.9, Albumin 3.1 L, Globulin 3.8, Albumin/Globulin Ratio 0.8 L 09/16/20 03:50: Troponin I 15.900 H* Current Medications Aspirin (Aspirin 81 Mg Tab.Chew) 81 mg PO DAILY@0800 [facility] Last Admin: 09/16/20 08:12 Dose: 81 mg Documented by: Atorvastatin Calcium (Atorvastatin Calcium 40 Mg Tablet) 40 mg PO QHS [facility] Last Admin: 09/15/20 20:07 Dose: 40 mg Documented by: Clopidogrel Bisulfate (Clopidogrel Bisulfate 75 Mg Tablet) 75 mg PO DAILY [facility] Last Admin: 09/16/20 08:12 Dose: 75 mg Documented by: Dexamethasone (Dexamethasone 4 Mg Tablet) 6 mg PO DAILY [facility] Stop: 09/24/20 10:01 Last Admin: 09/16/20 08:11 Dose: 6 mg Documented by: Enoxaparin Sodium (Enoxaparin 100 Mg/Ml Syringe) 90 mg 1 mg/kg (90 mg) SC Q12@0600,1800 [facility] Last Admin: 09/16/20 05:27 Dose: 90 mg Documented by: Furosemide (Furosemide 40 Mg/4 Ml Vial) 40 mg IV DAILY [facility] Last Admin: 09/16/20 08:12 Dose: 40 mg Documented by: Sodium Chloride () 250 mls @ 15 mls/hr IV .[id number] PRN PRN Reason: Saline Flush Sodium Chloride () 250 mls @ 15 mls/hr IV .[id number] PRN PRN Reason: Additional IVPB Infusion Remdesivir 100 mg/ Sodium (Chloride) 250 mls @ 125 mls/hr IV DAILY [facility]; Protocol Stop: 09/19/20 11:59 Levothyroxine Sodium (Levothyroxine 100 Mcg Tablet) 100 mcg PO DAILY@0600 [facility] Last Admin: 09/16/20 05:27 Dose: 100 mcg Documented by: Metoprolol Tartrate (Metoprolol Tartrate 25 Mg Tablet) 12.5 mg PO BID [facility] Last Admin: 09/16/20 08:11 Dose: 12.5 mg Documented by: Sodium Chloride (0.9% Saline Lock 10 Ml Syringe) 10 - 40 ml IV UD PRN PRN Reason: SALINE FLUSH Last Admin: 09/16/20 05:27 Dose: 40 ml Documented by: STROKE Vital Signs/Narrative: Vital Signs Pulse BP 09/16/20 08:11 115 H 123/73 H Medical Necessity - Tobacco Use Smoking Status: Former smoker Assessment/Plan All Active Problems CHF (congestive heart failure) (Acute) Pneumonia (Acute) Respiratory failure (Acute) NSTEMI (non-ST elevated myocardial infarction) (Acute) Acute Hypoxic Respiratory Failure 2/2 COVID PNA and NSTEMI -COVID neg but with recent exposure to known + about 6 days ago -decadron 11/25 and remdesivir day 11/20 per ID -wean O2 as able--> now down to 10 L HFNC -Supportive care -ID and Pulm following NSTEMI -Trop to 20 with cycling of enzymes -asa 81 daily now -statin -continue BB but increase to 50 mg BID (home dose is 100) -continue Lovenox with therapeutic dosing -continue daily plavix -Continue lasix 40 mg daily -monitor closely -ECHO done 09/15/2020 -EF 30% mod MVI, RVSP 50 mmHg, Mod ant/inf WMA present -Cards consulted--> awaiting input 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
--- NOTE | 2020-09-16 12:29 | CASEMGMT ---
WILDER CM Assessment Note chart reviewed. Patient is unable to participate in assessment @ this time. Attempted to call daughter, no answer. Presentation: respiratory failure Diagnosis: NSTEMI, suspected COVID PCP: Dr. Ball Insurance: [facility] Preferred Pharmacy: [facility] Prescription Benefit: yes LNOK: Daughter Danica Patel Living Arrangements: lives in one story home with daughter and grand daughter. Was independent prior to admission. Tranportation: unknown DME: wheeled walker, grab bars tub/shower. No home oxygen use prior to admission. HHC: unknown SNF: unknown DC Plan: TBD. PT/OT working with patient CM available for discharge planning coordination. Contact CM for any concerns/needs that may arise. Juan THEODORE RN ACM
--- NOTE | 2020-09-16 16:14 | PCM.PN.ID ---
Patient Problems: Active and Suspected Problems CHF (congestive heart failure) (Acute) Pneumonia (Acute) Respiratory failure (Acute) NSTEMI (non-ST elevated myocardial infarction) (Acute) Subjective: Feeling better, no fever, no n/v/d. - Physical Exam Vitals/I&O's: Vital Signs Temp Pulse Resp BP Pulse Ox 97.8 F 98 18 97/47 L 98 09/16/20 12:00 09/16/20 14:00 09/16/20 14:00 09/16/20 14:00 09/16/20 14:00 Oxygen Flow Rate (L/min) 4 Oxygen Delivery Method Nasal Cannula Weight: 87.5 kg Body Mass Index (BMI) 29.3 Intake and Output for Last 24 Hours 09/14/20 09/15/20 09/16/20 23:59 23:59 23:59 Intake Total 780 / 780 610 / 610 Output Total 2175 / 2275 2100 / 2100 Balance -1395 / -1495 -1490 / -1490 General: Alert, Cooperative, No apparent distress Lungs: Clear to auscultation, Diminished Cardiovascular: Regular rate, Regular Rhythm Abdomen: Soft, Non Tender, Non-Distended Skin: No rashes Microbiology Past 72 Hours 09/14/20 20:55 Mucosa - Nose SARS-CoV-2 Antigen (Rapid) - Final Laboratory Results 09/15/20 15:00: Troponin I 29.900 H* 09/16/20 03:50: WBC 14.9 H, RBC 4.42 L, Hgb 13.6, Hct 41.4, MCV 93.7, MCH 30.8, MCHC 32.9, RDW Std Deviation 48.5 H, RDW Coeff of Damion 14.1, Plt Count 261, MPV 9.6 09/16/20 03:50: Sodium 140, Potassium 4.0, Chloride 107, Carbon Dioxide 27.0, Anion Gap 6, BUN 33 H, Creatinine 1.18, Estim Creat Clear Calc 47.50, Est GFR (MDRD) Af Amer 76, Est GFR (MDRD) Non-Af 63, BUN/Creatinine Ratio 28.0 H, Glucose 127 H, Calcium 9.0, Total Bilirubin 0.40, AST 72 H, ALT 34, Alkaline Phosphatase 92, Total Protein 6.9, Albumin 3.1 L, Globulin 3.8, Albumin/Globulin Ratio 0.8 L 09/16/20 03:50: Troponin I 15.900 H* Current Medications Aspirin (Aspirin 81 Mg Tab.Chew) 81 mg PO DAILY@0800 [facility] Last Admin: 09/16/20 08:12 Dose: 81 mg Documented by: Atorvastatin Calcium (Atorvastatin Calcium 40 Mg Tablet) 40 mg PO QHS [facility] Last Admin: 09/15/20 20:07 Dose: 40 mg Documented by: Clopidogrel Bisulfate (Clopidogrel Bisulfate 75 Mg Tablet) 75 mg PO DAILY [facility] Last Admin: 09/16/20 08:12 Dose: 75 mg Documented by: Dexamethasone (Dexamethasone 4 Mg Tablet) 6 mg PO DAILY [facility] Stop: 09/24/20 10:01 Last Admin: 09/16/20 08:11 Dose: 6 mg Documented by: Enoxaparin Sodium (Enoxaparin 100 Mg/Ml Syringe) 90 mg 1 mg/kg (90 mg) SC Q12@0600,1800 [facility] Last Admin: 09/16/20 05:27 Dose: 90 mg Documented by: Furosemide (Furosemide 40 Mg/4 Ml Vial) 40 mg IV DAILY [facility] Last Admin: 09/16/20 08:12 Dose: 40 mg Documented by: Sodium Chloride () 250 mls @ 15 mls/hr IV .[id number] PRN PRN Reason: Saline Flush Sodium Chloride () 250 mls @ 15 mls/hr IV .[id number] PRN PRN Reason: Additional IVPB Infusion Remdesivir 100 mg/ Sodium (Chloride) 250 mls @ 125 mls/hr IV DAILY [facility]; Protocol Stop: 09/19/20 11:59 Last Infusion: 09/16/20 13:15 Dose: Infused Documented by: Levothyroxine Sodium (Levothyroxine 100 Mcg Tablet) 100 mcg PO DAILY@0600 [facility] Last Admin: 09/16/20 05:27 Dose: 100 mcg Documented by: Metoprolol Tartrate (Metoprolol Tartrate 25 Mg Tablet) 50 mg PO BID [facility] Sodium Chloride (0.9% Saline Lock 10 Ml Syringe) 10 - 40 ml IV UD PRN PRN Reason: SALINE FLUSH Last Admin: 09/16/20 05:27 Dose: 40 ml Documented by: Medical Necessity - Tobacco Use Smoking Status: Former smoker Route of nutrition/ use of supplements: [] Nutritional Intake: [] IV Site: [] Edward Catheter: [] - Assessment/Plan Antibiotics: [] Assessment/Plan: [] Active and Suspected Problems CHF (congestive heart failure) (Acute) Pneumonia (Acute) Respiratory failure (Acute) Treating for suspected covid, presented with hypoxia, dyspnea, aches, lymphopenia, and recent covid exposure - sx a few days prior to admit. Covid Ag and PCR neg, but suspected false negatives. Lungs are dull to exam, CT with no PE but bilateral groundglass infiltrates, denies any orthopnea or PND. D-dimer mildly elevated. PCT neg. Elevated trop and BNP. Feeling much better on dex and remdesivir. Will follow
--- NOTE | 2020-09-16 17:10 | PN.CARD_ITS ---
Subjectve: The patient is no longer on BiPAP therapy. He is using O2 nasal cannula at approximately 10 L at this time. There is been no other report of any acute symptoms. Objective: Vital Signs Temp Pulse Resp BP Pulse Ox 97.8 F 71 18 110/71 94 09/16/20 12:00 09/16/20 16:00 09/16/20 16:00 09/16/20 16:00 09/16/20 16:00 Oxygen Flow Rate (L/min) 10 Oxygen Delivery Method Nasal Cannula Weight: 192 lb 14.472 oz Body Mass Index (BMI) 29.3 Intake and Output for Last 24 Hours 09/14/20 09/15/20 09/16/20 23:59 23:59 23:59 Intake Total 780 / 780 610 / 610 Output Total 2175 / 2275 2100 / 2100 Balance -1395 / -1495 -1490 / -1490 General: Awake, Alert, Oriented x 3, Cooperative, No Acute Distress Lungs: Rhonchi Cardiovascular: Regular Rhythm, Normal S1, Normal S2 Abdomen: Bowel Sounds Present, Soft Extremities: No edema Psych/Mental Status: Appropriate 09/15/20 15:00: Troponin I 29.900 H* 09/16/20 03:50: WBC 14.9 H, RBC 4.42 L, Hgb 13.6, Hct 41.4, MCV 93.7, MCH 30.8, MCHC 32.9, Plt Count 261, MPV 9.6 09/16/20 03:50: Sodium 140, Potassium 4.0, Chloride 107, Carbon Dioxide 27.0, Anion Gap 6, BUN 33 H, Creatinine 1.18, Est GFR (MDRD) Af Amer 76, Est GFR (MDRD) Non-Af 63, BUN/Creatinine Ratio 28.0 H, Glucose 127 H, Calcium 9.0, Total Bilirubin 0.40 09/16/20 03:50: Troponin I 15.900 H* Rhythm: Sinus rhythm Echo: 09-15-2020 Interpretation Summary The study was technically difficult. Moderate segmental systolic dysfunction (see wall motion). The estimated ejection fraction is 30 %. Apical false tendon noted. Prominent eustachian valve. Mild diffuse mitral valve thickening. Moderate (2+) mitral valve insufficiency. Mild to moderate (1-2+) tricuspid valve insufficiency. Trivial aortic valve insufficiency. Right ventricular systolic pressure estimated to be 50 mmHg c/w pulmonary hypertension. Diastolic function is indeterminate. Medical Necessity - Tobacco Use Smoking Status: Former smoker Assessment/Plan 1. Non-ST segment elevation OH At the present time he presents with findings compatible with an acute non-ST segment elevation OH. It is unclear as to whether this was a primary event versus a secondary event brought out by his pneumonia and hypoxemia superimposed upon an underlying previously undiagnosed cardiovascular condition. At the moment he appears without acute symptoms. He is being monitored. His cardiac enzymes have been decreased. He has undergone evaluation with transthoracic echocardiogram. This has demonstrated left ventricular regional wall motion abnormalities and overall diminished LV systolic function/LVEF. It is unclear at this time whether his echocardiographic findings represent a remote event and his cardiac enzyme changes represent a secondary event brought out by his underlying pulmonary disease process versus all being a primary card iovascular event. He will continue medical therapy such as aspirin, antiplatelets, anticoagulants, nitrates as needed, beta-blockers, lipid-lowering agents, etc. Ideally he would be considered for further evaluation of his coronary anatomy with diagnostic cardiac catheterization. However this may be on temporary hold pending further evaluation/care and stabilization of his pulmonary status with respect to being COVID-19 positive (despite negative studies at this time) barring some unforeseen change. 2. CHF He does appear to have an element of CHF. His O2 status appears to have improved somewhat where he is no longer on BiPAP therapy but now on O2 nasal cannula therapy. He will continue diuretic therapy and monitor his clinical status and his radiologic findings. In the interim he will continue evaluation care as noted. 3. Pneumonia He has been diagnosed with pneumonia. At the moment it appears this is considered COVID-19 positive despite his negative studies potentially based upon his exposure time to other COVID-19 positive people and his current tests being performed too early to demonstrate positivity. He has been evaluated by infectious disease and pulmonology. He is continuing medical therapy as described above. He is pending repeat COVID-19 testing. This note was generated using a voice recognition system and there may be incorrect words, spelling or punctuation that were not noted when reviewing the office note prior to saving.
[2020-09-16] MEDS: Metoprolol Tartrate 25 MG Tablet 50 MG PO (20:47)
[2020-09-16] MEDS: Atorvastatin Calcium 40 MG Tablet PO (20:48)
[2020-09-17] VITALS (28 sets, daily range): BP systolic 105–128; BP diastolic 52–89; PULSE 65–106; RESP 12–29; TEMP 36.5–36.6; O2SAT 90–100
[2020-09-17 04:35] LABS: Hematocrit 44.9 % (40-54); Hemoglobin 14.8 g/dL (13.0-16.5); Mean Corpuscular Hgb 31.2 pg (27.0-32.0); Mean Corpuscular Volume 94.5 fL (80-94); Mean Platelet Vol. 9.2 fl (6.2-12.0); Platelet Count 310 K/mm3 (150-450); RBC Distribution Width CV 14.3 % (11.6-14.6); RBC Distribution Width SD 49.5 fl (35.1-43.9); Red Blood Count 4.75 M/mm3 (4.6-6.2); White Blood Count 16.5 K/mm3 (4.4-11.0)
[2020-09-17 04:59] LABS: ALB/GLOB Ratio 0.8 RATIO (0.9-2.4); AST(SGOT) 31 U/L (15-37); Alanine Aminotransfer ALT/SGPT 30 U/L (16-61); Albumin, Serum 3.4 g/dL (3.2-5.0); Alkaline Phosphatase 93 U/L (45-117); Anion Gap 6 (5-15); BUN 46 mg/dL (7-18); BUN/Creat Ratio 38.7 RATIO (10-20); Calcium,Total 9.4 mg/dL (8.5-10.1); Chloride 106 mmol/L (98-107); Creatinine, Serum 1.19 mg/dL (0.70-1.30); EST Glomerular Filtration Rate 62 mL/min (>60); Est Glom Filt Rate - Afr Amer 75 mL/min (>60); Glucose 117 mg/dL (74-106); Potassium 4.3 mmol/L (3.5-5.1); Protein, Total 7.4 g/dL (6.4-8.2); Sodium Level 139 mmol/L (136-145)
--- NOTE | 2020-09-17 05:55 | RAD_ITS ---
HISTORY: PNEMONIA EXAM: XR Chest 1 View: COMPARISON: September 15, 2020 FINDINGS: # of images incl. paperwork: 1 Bilateral airspace disease persists. It is more severe in the right upper lobe than previously, but perhaps less severe within the right lower lobe than previously. Calcific plaque within the aortic arch persists Heart is not enlarged. Scoliosis is less prominent Pulmonary vascularity is indistinct. Persistent bilateral pleural effusions. RAD/Chest 1 View (Portable) IMPRESSION: Persistent bilateral airspace disease consistent with pneumonia. Appears to be more severe in the right upper lobe or perhaps improved in the right lower lobe.. at 0557 Reported and signed by: Kamari Rolon MD Electronically Signed: Kamari Rolon MD at 5:56 EST Tel , Service support ,
[2020-09-17] MEDS: Enoxaparin 100 MG/ML Syringe 90 MG SC ×2 (06:28→18:23)
[2020-09-17] MEDS: Levothyroxine 100 MCG Tablet PO (06:28)
--- NOTE | 2020-09-17 07:09 | PCM.PN.INT ---
Subjective: The patient was seen and examined at the bedside this morning. Events from the last 24 hours have been reviewed. The patient is currently afebrile, hemodynamically stable and maintaining appropriate oxygen saturations on 9 L/min high flow nasal cannula. Last night, the patient initially refused to wear BiPAP but then developed worsening shortness of breath at approximately 0400 hrs. He was then agreeable to utilizing a BiPAP for 2.5 hours. The patient remains on Decadron, remdesivir, therapeutic Lovenox and scheduled IV Lasix. Liver and renal function are stable. The patient seems rather anxious to be discharged home. Objective: The patient's most recent lab work, culture data and imaging studies have all been personally reviewed. Surface echocardiogram dated September 15 revealed moderate segmental systolic dysfunction with an ejection fraction of 30%. Right ventricular systolic pressure was estimated to be 50 mmHg. Coronavirus antigen testing was negative on September 14. Blood cultures have shown no growth to date. General: Alert, Cooperative, No apparent distress HEENT: Atraumatic, PERRLA, Normocephalic Oral: Moist Mucosa, No Gingival or Mucosal Lesions/ Ulcerations Neck: Supple, No Nodes, Trachea Midline Lungs: No rhonchi, No wheeze, No rales, Diminished Cardiovascular: Regular rate, Regular Rhythm Abdomen: Bowel Sounds Present, Soft, Non Tender Extremities: No clubbing, No cyanosis, No edema Skin: No breakdown Musculoskeletal: No Tenderness to Palpation of Joints or Extremities, No Muscle Wasting Lymphatic: No Cervical, Supraclavicular, or Inguinal Adenopathy Neurological: Cranial nerves II-XII grossly intact, Neuro grossly intact Psych/Mental Status: Alert and oriented to time, place, person, mood and affect Vital Signs Temp Pulse Resp BP Pulse Ox 97.9 F 90 14 121/79 H 94 09/17/20 04:00 09/17/20 06:00 09/17/20 06:00 09/17/20 06:00 09/17/20 06:00 Oxygen Flow Rate (L/min) 10 Oxygen Delivery Method Bi-pap Weight: 183 lb 3.266 oz Body Mass Index (BMI) 29.3 Intake and Output for Last 24 Hours 09/15/20 09/16/20 09/17/20 23:59 23:59 23:59 Intake Total 780 / 780 610 / 850 240 / 240 Output Total 2175 / 2275 2100 / 2375 275 / 275 Balance -1395 / -1495 -1490 / -1525 -35 / -35 Labs (Last 48 Hours) 09/15/20 09/15/20 09/15/20 04:50 08:25 15:00 WBC RBC Hgb Hct MCV MCH MCHC RDW Std Deviation RDW Coeff of Damion Plt Count MPV PT 13.8 INR 1.1 APTT 32.3 Sodium Potassium Chloride Carbon Dioxide Anion Gap BUN Creatinine Estim Creat Clear Calc Est GFR (MDRD) Af Amer Est GFR (MDRD) Non-Af BUN/Creatinine Ratio Glucose Calcium Phosphorus Magnesium Total Bilirubin AST ALT Alkaline Phosphatase Troponin I 29.900 H* Total Protein Albumin Globulin Albumin/Globulin Ratio Triglycerides 82 Cholesterol 193 LDL Cholesterol 150 H VLDL Cholesterol 16 HDL Cholesterol 27 L 09/15/20 09/16/20 09/16/20 15:00 03:50 03:50 WBC 14.9 H RBC 4.42 L Hgb 13.6 Hct 41.4 MCV 93.7 MCH 30.8 MCHC 32.9 RDW Std Deviation 48.5 H RDW Coeff of Damion 14.1 Plt Count 261 MPV 9.6 PT INR APTT Sodium 141 140 Potassium 4.1 4.0 Chloride 107 107 Carbon Dioxide 28.0 27.0 Anion Gap 6 6 BUN 25 H 33 H Creatinine 1.24 1.18 Estim Creat Clear Calc 45.20 47.50 Est GFR (MDRD) Af Amer 72 76 Est GFR (MDRD) Non-Af 60 63 BUN/Creatinine Ratio 20.2 H 28.0 H Glucose 126 H 127 H Calcium 8.9 9.0 Phosphorus 3.1 Magnesium 2.0 Total Bilirubin 0.40 AST 72 H ALT 34 Alkaline Phosphatase 92 Troponin I Total Protein 6.9 Albumin 3.1 L Globulin 3.8 Albumin/Globulin Ratio 0.8 L Triglycerides Cholesterol LDL Cholesterol VLDL Cholesterol HDL Cholesterol 09/16/20 09/17/20 09/17/20 03:50 04:05 04:05 WBC 16.5 H RBC 4.75 Hgb 14.8 Hct 44.9 MCV 94.5 H MCH 31.2 MCHC 33.0 RDW Std Deviation 49.5 H RDW Coeff of Damion 14.3 Plt Count 310 MPV 9.2 PT INR APTT Sodium 139 Potassium 4.3 Chloride 106 Carbon Dioxide 27.0 Anion Gap 6 BUN 46 H Creatinine 1.19 Estim Creat Clear Calc 47.10 Est GFR (MDRD) Af Amer 75 Est GFR (MDRD) Non-Af 62 BUN/Creatinine Ratio 38.7 H Glucose 117 H Calcium 9.4 Phosphorus Magnesium Total Bilirubin 0.50 AST 31 ALT 30 Alkaline Phosphatase 93 Troponin I 15.900 H* Total Protein 7.4 Albumin 3.4 Globulin 4.0 Albumin/Globulin Ratio 0.8 L Triglycerides Cholesterol LDL Cholesterol VLDL Cholesterol HDL Cholesterol Clinical Impression(s) from Imaging Studies Chest X-Ray 09/14/20 22:00 IMPRESSION: Bilateral interstitial thickening greatest in the lung bases with superimposed airspace opacities seen predominantly in the right lung base and minimal atelectasis in the left lung base. at 2224 Reported and signed by: Kasia Mccoy DO Electronically Signed: Kasia Mccoy DO at 22:23 EST Tel , Service support , Chest CTA 09/14/20 23:12 Chest X-Ray 09/15/20 05:55 IMPRESSION: Increasing pulmonary infiltrates and pleural effusions. Electronically Signed: Sim Trevino DO at 21:20 EST Tel [phone], Service support , Chest X-Ray 09/17/20 05:55 IMPRESSION: Persistent bilateral airspace disease consistent with pneumonia. Appears to be more severe in the right upper lobe or perhaps improved in the right lower lobe.. at 0557 Reported and signed by: Kamari Rolon MD Electronically Signed: Kamari Rolon MD at 5:56 EST Tel , Service support , Medical Necessity - Tobacco Use Smoking Status: Former smoker Assessment/Plan All Active Problems CHF (congestive heart failure) (Acute) Pneumonia (Acute) Respiratory failure (Acute) NSTEMI (non-ST elevated myocardial infarction) (Acute) RECOMMENDATIONS: 1. Continue to wean oxygen to maintain saturations at or above 90%. 2. Continue scheduled IV Lasix and therapeutic Lovenox. 3. Continue Decadron and remdesivir. 4. Encourage incentive spirometer use and mobilize patient as tolerated. IMPRESSIONS: 1. Acute hypoxic respiratory failure Likely multifactorial in etiology. COVID-19 pneumonia and decompensated heart failure are both considerations. The patient remains on treatment for presumptive coronavirus, despite negative testing. In addition, he remains on a diuretic regimen under the discretion of cardiology. The patient will be continued on therapeutic Lovenox, scheduled IV Lasix, Decadron and remdesivir. Continue to wean supplemental oxygen to maintain saturations at or above 90%. Encourage incentive spirometer use and mobilize patient as tolerated. 2. Non-ST segment elevation RI/decompensated heart failure Plan to continue current supportive measures under discretion of cardiology. Continue diuretic therapy as tolerated by hemodynamics and renal function. 3. Chronic kidney disease/hypertension/hypothyroidism/obesity/advanced age Complicates care, management, recovery and prognosis. Continue Synthroid per home regimen. This note was generated with [employer] dictation software. It may contain incorrect words, spelling, and punctuation that were not noted in checking the note before signing. Inpatient E&M: 87667 Subs Hosp L2
--- NOTE | 2020-09-17 07:17 | PN_ITS ---
Patient Problems: Active and Suspected Problems CHF (congestive heart failure) (Acute) Pneumonia (Acute) Respiratory failure (Acute) NSTEMI (non-ST elevated myocardial infarction) (Acute) Subjective: Pt states that he is feeling fine. No issues overnight. Has wean to 9L. Wore BIPAP last PM because of phlegm build up per pt. Anxious to go home. discussed with pt that he will need to be on less O2 prior to this and be strong enough. States he has a walker at home and lives with family. Vitals/I&O's: Vital Signs Temp Pulse Resp BP Pulse Ox 97.9 F 90 14 121/79 H 94 09/17/20 04:00 09/17/20 06:00 09/17/20 06:00 09/17/20 06:00 09/17/20 06:00 Oxygen Flow Rate (L/min) 10 Oxygen Delivery Method Bi-pap Weight: 83.1 kg Body Mass Index (BMI) 29.3 Intake and Output for Last 24 Hours 09/15/20 09/16/20 09/17/20 23:59 23:59 23:59 Intake Total 780 / 780 610 / 850 240 / 240 Output Total 2175 / 2275 2100 / 2375 275 / 275 Balance -1395 / -1495 -1490 / -1525 -35 / -35 General: Alert, Oriented x3, Cooperative, No apparent distress, Well developed, Well nourished, - - older WM sitting up in bed watching TV and on phone, appears comfortable HEENT: Atraumatic, Normocephalic Oral: Moist Mucosa, No Gingival or Mucosal Lesions/ Ulcerations, - - no thrush Lungs: No rhonchi, No wheeze, No rales, Diminished Cardiovascular: Regular Rhythm, Normal S1, Normal S2, No murmurs, No Ectopic Activity, No rub noted, No Gallop, Tachycardic - mild Abdomen: Bowel Sounds Present, Soft, Non Tender, Non-Distended, No Hepato- splenomegaly Extremities: No clubbing, No cyanosis, No edema, Capillary Refill Less than 3 Seconds, Peripheral Pulses Normal Neurological: Cranial nerves II-XII grossly intact, Neuro grossly intact Psych/Mental Status: Normal Affect, Appropriate, - - very talkative today Microbiology Past 72 Hours 09/14/20 20:55 Mucosa - Nose SARS-CoV-2 Antigen (Rapid) - Final Laboratory Results 09/16/20 03:50: Troponin I 15.900 H* 09/17/20 04:05: WBC 16.5 H, RBC 4.75, Hgb 14.8, Hct 44.9, MCV 94.5 H, MCH 31.2, MCHC 33.0, RDW Std Deviation 49.5 H, RDW Coeff of Damion 14.3, Plt Count 310, MPV 9.2 09/17/20 04:05: Sodium 139, Potassium 4.3, Chloride 106, Carbon Dioxide 27.0, Anion Gap 6, BUN 46 H, Creatinine 1.19, Estim Creat Clear Calc 47.10, Est GFR (MDRD) Af Amer 75, Est GFR (MDRD) Non-Af 62, BUN/Creatinine Ratio 38.7 H, Glucose 117 H, Calcium 9.4, Total Bilirubin 0.50, AST 31, ALT 30, Alkaline Phosphatase 93, Total Protein 7.4, Albumin 3.4, Globulin 4.0, Albumin/Globulin Ratio 0.8 L Current Medications Aspirin (Aspirin 81 Mg Tab.Chew) 81 mg PO DAILY@0800 [facility] Last Admin: 09/16/20 08:12 Dose: 81 mg Documented by: Atorvastatin Calcium (Atorvastatin Calcium 40 Mg Tablet) 40 mg PO QHS [facility] Last Admin: 09/16/20 20:48 Dose: 40 mg Documented by: Clopidogrel Bisulfate (Clopidogrel Bisulfate 75 Mg Tablet) 75 mg PO DAILY [facility] Last Admin: 09/16/20 08:12 Dose: 75 mg Documented by: Dexamethasone (Dexamethasone 4 Mg Tablet) 6 mg PO DAILY [facility] Stop: 09/24/20 10:01 Last Admin: 09/16/20 08:11 Dose: 6 mg Documented by: Enoxaparin Sodium (Enoxaparin 100 Mg/Ml Syringe) 90 mg 1 mg/kg (90 mg) SC Q12@0600,1800 [facility] Last Admin: 09/17/20 06:28 Dose: 90 mg Documented by: Furosemide (Furosemide 40 Mg/4 Ml Vial) 40 mg IV DAILY [facility] Last Admin: 09/16/20 08:12 Dose: 40 mg Documented by: Sodium Chloride () 250 mls @ 15 mls/hr IV .[id number] PRN PRN Reason: Saline Flush Sodium Chloride () 250 mls @ 15 mls/hr IV .[id number] PRN PRN Reason: Additional IVPB Infusion Remdesivir 100 mg/ Sodium (Chloride) 250 mls @ 125 mls/hr IV DAILY [facility]; Protocol Stop: 09/19/20 11:59 Last Infusion: 09/16/20 13:15 Dose: Infused Documented by: Levothyroxine Sodium (Levothyroxine 100 Mcg Tablet) 100 mcg PO DAILY@0600 [facility] Last Admin: 09/17/20 06:28 Dose: 100 mcg Documented by: Metoprolol Tartrate (Metoprolol Tartrate 25 Mg Tablet) 50 mg PO BID [facility] Last Admin: 09/16/20 20:47 Dose: 50 mg Documented by: Sodium Chloride (0.9% Saline Lock 10 Ml Syringe) 10 - 40 ml IV UD PRN PRN Reason: SALINE FLUSH Last Admin: 09/16/20 05:27 Dose: 40 ml Documented by: STROKE Vital Signs/Narrative: Vital Signs Temp Pulse Resp BP Pulse Ox 09/17/20 06:00 90 14 121/79 H 94 09/17/20 05:00 91 14 115/71 99 09/17/20 04:21 106 H 14 94 09/17/20 04:00 97.9 F 104 H 13 128/82 H 97 Medical Necessity - Tobacco Use Smoking Status: Former smoker Assessment/Plan All Active Problems CHF (congestive heart failure) (Acute) Pneumonia (Acute) Respiratory failure (Acute) NSTEMI (non-ST elevated myocardial infarction) (Acute) Acute Hypoxic Respiratory Failure 2/2 COVID PNA and NSTEMI -COVID neg but with recent exposure to known + about 6 days ago -decadron 12/23 and remdesivir day 12/18 per ID -wean O2 as able--> weaned to 10 L HFNC -wore NIV last night but per RT was not needed--> pt asked for this -Supportive care -ID and Pulm following NSTEMI -Trop to 29 max and now trended down -asa 81 daily now -statin -continue BB but increase to 100 mg BID (home dose is 100) -continue Lovenox with therapeutic dosing -continue daily plavix -Continue lasix 40 mg daily but switch to PO from IV -monitor closely -ECHO done 09/15/2020 -EF 30% mod MVI, RVSP 50 mmHg, Mod ant/inf WMA present -Cards following--> will need LHC at some point but timing 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
[2020-09-17] MEDS: dexAMETHasone 4 MG Tablet 6 MG PO (08:23)
[2020-09-17] MEDS: Furosemide 40 MG Tablet PO (08:25)
[2020-09-17] MEDS: Clopidogrel Bisulfate 75 MG Tablet PO (08:25)
[2020-09-17] MEDS: Metoprolol Tartrate 100 MG Tablet PO ×2 (08:25→21:21)
[2020-09-17] MEDS: Aspirin 81 MG TAB.CHEW PO (08:29)
[2020-09-17] MEDS: 0.9% Saline Lock 10 ML Syringe IV (10:36)
--- NOTE | 2020-09-17 15:32 | NURSING ---
report called to med-surg for transfer to room 217, transferred per chair with o2 & belongings
--- NOTE | 2020-09-17 18:07 | PN.CARD_ITS ---
Subjectve: The patient is currently out of the ICU and now on the [facility] 2 floor. He remains in precautions. Objective: Vital Signs Temp Pulse Resp BP Pulse Ox 97.9 F 89 18 127/89 H 97 09/17/20 15:54 09/17/20 15:54 09/17/20 15:54 09/17/20 15:54 09/17/20 15:54 Oxygen Flow Rate (L/min) 10 Oxygen Delivery Method Nasal Cannula Weight: 183 lb 3.266 oz Body Mass Index (BMI) 29.3 Intake and Output for Last 24 Hours 09/15/20 09/16/20 09/17/20 23:59 23:59 23:59 Intake Total 780 / 780 610 / 850 1050 / 1050 Output Total 2175 / 2275 2100 / 2375 275 / 275 Balance -1395 / -1495 -1490 / -1525 775 / 775 General: Awake, Alert, Oriented x 3, Cooperative HEENT: Atraumatic, Normocephalic, PERRL, EOMI, Sclera Non Icteric Lungs: Rhonchi Cardiovascular: Regular Rhythm, Normal S1, Normal S2 Abdomen: Bowel Sounds Present, Soft Extremities: No edema Psych/Mental Status: Appropriate 09/17/20 04:05: WBC 16.5 H, RBC 4.75, Hgb 14.8, Hct 44.9, MCV 94.5 H, MCH 31.2, MCHC 33.0, Plt Count 310, MPV 9.2 09/17/20 04:05: Sodium 139, Potassium 4.3, Chloride 106, Carbon Dioxide 27.0, Anion Gap 6, BUN 46 H, Creatinine 1.19, Est GFR (MDRD) Af Amer 75, Est GFR (MDRD) Non-Af 62, BUN/Creatinine Ratio 38.7 H, Glucose 117 H, Calcium 9.4, Total Bilirubin 0.50 Rhythm: Sinus rhythm CXR: Preliminary evaluation: Findings compatible with bilateral infiltrates righ t greater than left; compared to the previous ECG they may be somewhat less prominent. Please see official report Medical Necessity - Tobacco Use Smoking Status: Former smoker Assessment/Plan 1. Non-ST segment elevation MD At the present time he presents with findings compatible with an acute non-ST segment elevation MD. It is unclear as to whether this was a primary event versus a secondary event brought out by his pneumonia and hypoxemia superimposed upon an underlying previously undiagnosed cardiovascular condition. At the moment he appears without acute symptoms. He is being monitored. His cardiac enzymes have been decreased. He has undergone evaluation with transthoracic echocardiogram. This has demonstrated left ventricular regional wall motion abnormalities and overall diminished LV systolic function/LVEF. It is unclear at this time whether his echocardiographic findings represent a remote event and his cardiac enzyme changes represent a secondary event brought out by his underlying pulmonary disease process versus all being a primary cardiovascular event. He will continue medical therapy such as aspirin, antiplatelets, anticoagulants, nitrates as needed, beta-blockers, lipid-lowering agents, etc. Ideally he would be considered for further evaluation of his coronary anatomy with diagnostic cardiac catheterization. However this may be on temporary hold pending further evaluation/care and stabilization of his pulmonary status with respect to being COVID-19 positive (despite negative studies at this time) barring some unforeseen change. 2. CHF He does appear to have an element of CHF. His O2 status appears to have improved somewhat. He will continue diuretic therapy and monitor his clinical status and his radiologic findings. In the interim he will continue evaluation care as noted. 3. Pneumonia He has been diagnosed with pneumonia. At the moment it appears this is considered COVID-19 positive despite his negative studies potentially based upon his exposure time to other COVID-19 positive people and his current tests being performed too early to demonstrate positivity. He has been evaluated by infectious disease and pulmonology. He is continuing medical therapy as described above. Overall, from a cardiac standpoint, he will continue cardiovascular medical management as long as he remains symptomatically and hemodynamically stable with plans that once he has recuperated from his presumed COVID-19 viral illness to consider further evaluation with diagnostic cardiac catheterization. This note was generated using a voice recognition system and there may be incorrect words, spelling or punctuation that were not noted when reviewing the office note prior to saving.
[2020-09-17] MEDS: Atorvastatin Calcium 40 MG Tablet PO (21:21)
[2020-09-18] VITALS (15 sets, daily range): BP systolic 101–121; BP diastolic 51–66; PULSE 65–91; RESP 18–22; TEMP 36.4–36.8; O2SAT 92–98
--- NOTE | 2020-09-18 02:43 | CPS ---
decreased Pt to 8 LPM O2 NC
[2020-09-18] MEDS: Enoxaparin 100 MG/ML Syringe 90 MG SC (05:39)
[2020-09-18] MEDS: Levothyroxine 100 MCG Tablet PO (05:39)
--- NOTE | 2020-09-18 07:30 | PCM.PN.PUL ---
Patient Problems: Active and Suspected Problems CHF (congestive heart failure) (Acute) Pneumonia (Acute) Respiratory failure (Acute) NSTEMI (non-ST elevated myocardial infarction) (Acute) Subjective: The patient was seen and examined at the bedside this morning. Events from the last 24 hours have been reviewed. The patient is currently afebrile, hemodynamically stable and maintaining appropriate oxygen saturations on 8 L/min via nasal cannula. The patient remains on Lasix by mouth along with Decadron and remdesivir. Renal and liver functions are stable. Objective: The patient's most recent lab work, culture data and imaging studies have all been personally reviewed. Surface echocardiogram dated September 15 revealed moderate segmental systolic dysfunction with an ejection fraction of 30%. Right ventricular systolic pressure was estimated to be 50 mmHg. Coronavirus antigen testing was negative on September 14. Blood cultures have shown no growth to date. - Physical Exam Vitals/I&O's: Vital Signs Temp Pulse Resp BP Pulse Ox 98.2 F 71 18 119/65 92 09/18/20 05:41 09/18/20 06:05 09/18/20 05:41 09/18/20 05:41 09/18/20 05:41 Oxygen Flow Rate (L/min) 8 Oxygen Delivery Method Nasal Cannula Weight: 184 lb 15.485 oz Body Mass Index (BMI) 29.3 Intake and Output for Last 24 Hours 09/16/20 09/17/20 09/18/20 23:59 23:59 23:59 Intake Total 610 / 850 1290 / 1290 Output Total 2100 / 2375 825 / 825 Balance -1490 / -1525 465 / 465 General: Alert, Oriented x3, Cooperative, No apparent distress HEENT: Atraumatic, PERRLA, Normocephalic Oral: Moist Mucosa, No Gingival or Mucosal Lesions/ Ulcerations Neck: Supple, No Nodes, Trachea Midline Lungs: Diminished Cardiovascular: Regular rate, Regular Rhythm Abdomen: Bowel Sounds Present, Soft, Non Tender Extremities: No clubbing, No cyanosis, No edema Skin: No breakdown Musculoskeletal: No Tenderness to Palpation of Joints or Extremities, No Muscle Wasting Lymphatic: No Cervical, Supraclavicular, or Inguinal Adenopathy Neurological: Cranial nerves II-XII grossly intact, Neuro grossly intact Psych/Mental Status: Normal Affect, Appropriate Labs (Last 48 Hours) 1209/17/20 09/17/20 03:50 04:05 04:05 WBC 16.5 H RBC 4.75 Hgb 14.8 Hct 44.9 MCV 94.5 H MCH 31.2 MCHC 33.0 RDW Std Deviation 49.5 H RDW Coeff of Damion 14.3 Plt Count 310 MPV 9.2 Sodium 139 Potassium 4.3 Chloride 106 Carbon Dioxide 27.0 Anion Gap 6 BUN 46 H Creatinine 1.19 Estim Creat Clear Calc 47.10 Est GFR (MDRD) Af Amer 75 Est GFR (MDRD) Non-Af 62 BUN/Creatinine Ratio 38.7 H Glucose 117 H Calcium 9.4 Total Bilirubin 0.50 AST 31 ALT 30 Alkaline Phosphatase 93 Troponin I 15.900 H* Total Protein 7.4 Albumin 3.4 Globulin 4.0 Albumin/Globulin Ratio 0.8 L Microbiology 09/14/20 20:53 Blood Culture (Wb) - Anticubital Right Blood Culture - Preliminary No growth in 48 hours. 09/14/20 20:45 Blood Culture (Wb) - Anticubital Left Blood Culture - Preliminary No growth in 48 hours. Clinical Impression(s) from Imaging Studies Chest X-Ray 09/14/20 22:00 IMPRESSION: Bilateral interstitial thickening greatest in the lung bases with superimposed airspace opacities seen predominantly in the right lung base and minimal atelectasis in the left lung base. at 2224 Reported and signed by: Kasia Mccoy DO Electronically Signed: Kasia Mccoy DO at 22:23 EST Tel , Service support , Chest CTA 09/14/20 23:12 Chest X-Ray 09/15/20 05:55 IMPRESSION: Increasing pulmonary infiltrates and pleural effusions. Electronically Signed: Sim Trevino DO at 21:20 EST Tel [phone], Service support , Chest X-Ray 09/17/20 05:55 IMPRESSION: Persistent bilateral airspace disease consistent with pneumonia. Appears to be more severe in the right upper lobe or perhaps improved in the right lower lobe.. at 0557 Reported and signed by: Kamari Rolon MD Electronically Signed: Kamari Rolon MD at 5:56 EST Tel , Service support , Current Medications Aspirin (Aspirin 81 Mg Tab.Chew) 81 mg PO DAILY@0800 [facility] Last Admin: 09/17/20 08:29 Dose: 81 mg Documented by: Atorvastatin Calcium (Atorvastatin Calcium 40 Mg Tablet) 40 mg PO QHS [facility] Last Admin: 09/17/20 21:21 Dose: 40 mg Documented by: Clopidogrel Bisulfate (Clopidogrel Bisulfate 75 Mg Tablet) 75 mg PO DAILY [facility] Last Admin: 09/17/20 08:25 Dose: 75 mg Documented by: Dexamethasone (Dexamethasone 4 Mg Tablet) 6 mg PO DAILY [facility] Stop: 09/24/20 10:01 Last Admin: 09/17/20 08:23 Dose: 6 mg Documented by: Enoxaparin Sodium (Enoxaparin 100 Mg/Ml Syringe) 90 mg 1 mg/kg (90 mg) SC Q12@0600,1800 [facility] Last Admin: 09/18/20 05:39 Dose: 90 mg Documented by: Furosemide (Furosemide 40 Mg Tablet) 40 mg PO DAILY [facility] Last Admin: 09/17/20 08:25 Dose: 40 mg Documented by: Sodium Chloride () 250 mls @ 15 mls/hr IV .[id number] PRN PRN Reason: Saline Flush Sodium Chloride () 250 mls @ 15 mls/hr IV .[id number] PRN PRN Reason: Additional IVPB Infusion Remdesivir 100 mg/ Sodium (Chloride) 250 mls @ 125 mls/hr IV DAILY [facility]; Protocol Stop: 09/19/20 11:59 Last Infusion: 09/17/20 15:27 Dose: Infused Documented by: Levothyroxine Sodium (Levothyroxine 100 Mcg Tablet) 100 mcg PO DAILY@0600 [facility] Last Admin: 09/18/20 05:39 Dose: 100 mcg Documented by: Metoprolol Tartrate (Metoprolol Tartrate 100 Mg Tablet) 100 mg PO BID [facility] Last Admin: 09/17/20 21:21 Dose: 100 mg Documented by: Sodium Chloride (0.9% Saline Lock 10 Ml Syringe) 10 - 40 ml IV UD PRN PRN Reason: SALINE FLUSH Last Admin: 09/17/20 10:36 Dose: 10 ml Documented by: Medical Necessity - Tobacco Use Smoking Status: Former smoker Assessment/Plan All Active Problems CHF (congestive heart failure) (Acute) Pneumonia (Acute) Respiratory failure (Acute) NSTEMI (non-ST elevated myocardial infarction) (Acute) RECOMMENDATIONS: 1. Continue to wean oxygen to maintain saturations at or above 90%. 2. Continue scheduled IV Lasix and therapeutic Lovenox. 3. Continue Decadron and remdesivir. Continue to monitor renal and liver function accordingly. 4. Encourage incentive spirometer use and mobilize patient as tolerated. IMPRESSIONS: 1. Acute hypoxic respiratory failure Likely multifactorial in etiology. COVID-19 pneumonia and decompensated heart failure are both considerations. The patient remains on treatment for presumptive coronavirus, despite negative testing. In addition, he remains on a diuretic regimen under the discretion of cardiology. The patient will be continued on therapeutic Lovenox, scheduled IV Lasix, Decadron and remdesivir. Continue to wean supplemental oxygen to maintain saturations at or above 90%. Encourage incentive spirometer use and mobilize patient as tolerated. 2. Non-ST segment elevation OK/decompensated heart failure Plan to continue current supportive measures under discretion of cardiology. Continue diuretic therapy as tolerated by hemodynamics and renal function. 3. Chronic kidney disease/hypertension/hypothyroidism/obesity/advanced age Complicates care, management, recovery and prognosis. Continue Synthroid per home regimen. This note was generated with [employer] dictation software. It may contain incorrect words, spelling, and punctuation that were not noted in checking the note before signing. Inpatient E&M: 82942 Subs Hosp L2
[2020-09-18 08:30] LABS: Hematocrit 45.2 % (40-54); Hemoglobin 14.3 g/dL (13.0-16.5); Mean Corp Hgb Conc 31.6 g/dL (32-36); Mean Corpuscular Hgb 30.4 pg (27.0-32.0); Mean Corpuscular Volume 96.2 fL (80-94); Mean Platelet Vol. 9.3 fl (6.2-12.0); Platelet Count 328 K/mm3 (150-450); RBC Distribution Width SD 50.1 fl (35.1-43.9); White Blood Count 12.7 K/mm3 (4.4-11.0)
[2020-09-18 08:48] LABS: ALB/GLOB Ratio 0.9 RATIO (0.9-2.4); AST(SGOT) 35 U/L (15-37); Alanine Aminotransfer ALT/SGPT 45 U/L (16-61); Albumin, Serum 3.4 g/dL (3.2-5.0); Alkaline Phosphatase 87 U/L (45-117); Anion Gap 6 (5-15); BUN 47 mg/dL (7-18); BUN/Creat Ratio 45.2 RATIO (10-20); Calcium,Total 9.3 mg/dL (8.5-10.1); Chloride 105 mmol/L (98-107); Creatinine, Serum 1.04 mg/dL (0.70-1.30); EST Glomerular Filtration Rate 73 mL/min (>60); Est Glom Filt Rate - Afr Amer 88 mL/min (>60); Estimated Creatinine Clearance 53.89 ml/min; Globulin 3.8 g/dL (2.2-4.2); Glucose 102 mg/dL (74-106); Potassium 3.9 mmol/L (3.5-5.1); Protein, Total 7.2 g/dL (6.4-8.2); Sodium Level 140 mmol/L (136-145)
[2020-09-18] MEDS: dexAMETHasone 4 MG Tablet 6 MG PO (09:17)
[2020-09-18] MEDS: Aspirin 81 MG TAB.CHEW PO (09:17)
[2020-09-18] MEDS: Furosemide 40 MG Tablet PO (09:18)
[2020-09-18] MEDS: Metoprolol Tartrate 100 MG Tablet PO ×2 (09:18→22:18)
[2020-09-18] MEDS: Clopidogrel Bisulfate 75 MG Tablet PO (09:19)
[2020-09-18] MEDS: 0.9% Saline Lock 10 ML Syringe IV ×2 (11:58→17:16)
--- NOTE | 2020-09-18 15:23 | PCM.PN.ID ---
Patient Problems: Active and Suspected Problems CHF (congestive heart failure) (Acute) Pneumonia (Acute) Respiratory failure (Acute) NSTEMI (non-ST elevated myocardial infarction) (Acute) Subjective: Feeling better, no fever - Physical Exam Vitals/I&O's: Vital Signs Temp Pulse Resp BP Pulse Ox 97.6 F L 78 22 H 101/51 L 95 09/18/20 15:00 09/18/20 15:00 09/18/20 15:00 09/18/20 15:00 09/18/20 15:00 Oxygen Flow Rate (L/min) 8 Oxygen Delivery Method Nasal Cannula Weight: 83.9 kg Body Mass Index (BMI) 29.3 Intake and Output for Last 24 Hours 09/16/20 09/17/20 09/18/20 23:59 23:59 23:59 Intake Total 610 / 850 1290 / 1290 Output Total 2100 / 2375 825 / 825 Balance -1490 / -1525 465 / 465 General: Alert, Cooperative, No apparent distress Lungs: Diminished Cardiovascular: Regular rate, Regular Rhythm Abdomen: Soft, Non Tender, Non-Distended Skin: No rashes Microbiology Past 72 Hours 09/14/20 20:53 Blood Culture (Wb) - Anticubital Right Blood Culture - Preliminary No growth in 48 hours. 09/14/20 20:45 Blood Culture (Wb) - Anticubital Left Blood Culture - Preliminary No growth in 48 hours. Laboratory Results 09/18/20 07:34: WBC 12.7 H, RBC 4.70, Hgb 14.3, Hct 45.2, MCV 96.2 H, MCH 30.4, MCHC 31.6 L, RDW Std Deviation 50.1 H, RDW Coeff of Damion 14.0, Plt Count 328, MPV 9.3 09/18/20 07:34: Sodium 140, Potassium 3.9, Chloride 105, Carbon Dioxide 29.0, Anion Gap 6, BUN 47 H, Creatinine 1.04, Estim Creat Clear Calc 53.89, Est GFR (MDRD) Af Amer 88, Est GFR (MDRD) Non-Af 73, BUN/Creatinine Ratio 45.2 H, Glucose 102, Calcium 9.3, Total Bilirubin 0.40, AST 35, ALT 45, Alkaline Phosphatase 87, Total Protein 7.2, Albumin 3.4, Globulin 3.8, Albumin/Globulin Ratio 0.9 Current Medications Aspirin (Aspirin 81 Mg Tab.Chew) 81 mg PO DAILY@0800 [facility] Last Admin: 09/18/20 09:17 Dose: 81 mg Documented by: Atorvastatin Calcium (Atorvastatin Calcium 40 Mg Tablet) 40 mg PO QHS [facility] Last Admin: 09/17/20 21:21 Dose: 40 mg Documented by: Clopidogrel Bisulfate (Clopidogrel Bisulfate 75 Mg Tablet) 75 mg PO DAILY [facility] Last Admin: 09/18/20 09:19 Dose: 75 mg Documented by: Dexamethasone (Dexamethasone 4 Mg Tablet) 6 mg PO DAILY [facility] Stop: 09/24/20 10:01 Last Admin: 09/18/20 09:17 Dose: 6 mg Documented by: Enoxaparin Sodium (Enoxaparin 100 Mg/Ml Syringe) 90 mg 1 mg/kg (90 mg) SC Q12@0600,1800 [facility] Last Admin: 09/18/20 05:39 Dose: 90 mg Documented by: Furosemide (Furosemide 40 Mg Tablet) 40 mg PO DAILY [facility] Last Admin: 09/18/20 09:18 Dose: 40 mg Documented by: Sodium Chloride () 250 mls @ 15 mls/hr IV .[id number] PRN PRN Reason: Saline Flush Last Admin: 09/18/20 11:56 Dose: 15 mls/hr Documented by: Sodium Chloride () 250 mls @ 15 mls/hr IV .[id number] PRN PRN Reason: Additional IVPB Infusion Remdesivir 100 mg/ Sodium (Chloride) 250 mls @ 125 mls/hr IV DAILY [facility]; Protocol Stop: 09/19/20 11:59 Last Admin: 09/18/20 11:55 Dose: 125 mls/hr Documented by: Levothyroxine Sodium (Levothyroxine 100 Mcg Tablet) 100 mcg PO DAILY@0600 [facility] Last Admin: 09/18/20 05:39 Dose: 100 mcg Documented by: Metoprolol Tartrate (Metoprolol Tartrate 100 Mg Tablet) 100 mg PO BID [facility] Last Admin: 09/18/20 09:18 Dose: 100 mg Documented by: Sodium Chloride (0.9% Saline Lock 10 Ml Syringe) 10 - 40 ml IV UD PRN PRN Reason: SALINE FLUSH Last Admin: 09/18/20 11:58 Dose: 10 ml Documented by: Medical Necessity - Tobacco Use Smoking Status: Former smoker Route of nutrition/ use of supplements: [] Nutritional Intake: [] IV Site: [] Edward Catheter: [] - Assessment/Plan Antibiotics: [] Assessment/Plan: [] Active and Suspected Problems CHF (congestive heart failure) (Acute) Pneumonia (Acute) Respiratory failure (Acute) Treating for suspected covid, presented with hypoxia, dyspnea, aches, lymphopenia, and recent covid exposure - sx a few days prior to admit. Covid Ag and PCR neg, but suspected false negatives. Lungs are dull to exam, CT with no PE but bilateral groundglass infiltrates, denies any orthopnea or PND. D-dimer mildly elevated. PCT neg. Elevated trop and BNP. Feeling much better on dex and remdesivir. Will follow, d/w Dr. Curry
--- NOTE | 2020-09-18 16:44 | PCM.PN.HOSP ---
Patient Problems: Active and Suspected Problems CHF (congestive heart failure) (Acute) Pneumonia (Acute) Respiratory failure (Acute) NSTEMI (non-ST elevated myocardial infarction) (Acute) Subjective: Pt states that he is a little SOB. Feels well otherwise. Ambulates in room I. Vitals/I&O's: Vital Signs Temp Pulse Resp BP Pulse Ox 97.6 F L 91 22 H 101/51 L 95 09/18/20 15:00 09/18/20 15:02 09/18/20 15:00 09/18/20 15:00 09/18/20 15:00 Oxygen Flow Rate (L/min) 8 Oxygen Delivery Method Nasal Cannula Weight: 83.9 kg Body Mass Index (BMI) 29.3 Intake and Output for Last 24 Hours 09/16/20 09/17/20 09/18/20 23:59 23:59 23:59 Intake Total 610 / 850 1290 / 1290 250 / 250 Output Total 2100 / 2375 825 / 825 Balance -1490 / -1525 465 / 465 250 / 250 General: Alert, Oriented x3, Cooperative, No apparent distress, Well developed, Well nourished, - - Pt just went to BR and moving in room with O2 and IV independently Oral: Moist Mucosa, - - no thrush Neck: Supple, Trachea Midline Lungs: Clear to auscultation, Normal air movement, No rhonchi, No wheeze, No rales Cardiovascular: Regular rate, Regular Rhythm, Normal S1, Normal S2, No murmurs, No Ectopic Activity, No rub noted, No Gallop Abdomen: Bowel Sounds Present, Soft, Non Tender, Non-Distended Extremities: No clubbing, No cyanosis, No edema, Capillary Refill Less than 3 Seconds, Peripheral Pulses Normal Neurological: Cranial nerves II-XII grossly intact, Neuro grossly intact Psych/Mental Status: Normal Affect, Appropriate Microbiology Past 72 Hours 09/14/20 20:53 Blood Culture (Wb) - Anticubital Right Blood Culture - Preliminary No growth in 48 hours. 09/14/20 20:45 Blood Culture (Wb) - Anticubital Left Blood Culture - Preliminary No growth in 48 hours. Laboratory Results 09/18/20 07:34: WBC 12.7 H, RBC 4.70, Hgb 14.3, Hct 45.2, MCV 96.2 H, MCH 30.4, MCHC 31.6 L, RDW Std Deviation 50.1 H, RDW Coeff of Damion 14.0, Plt Count 328, MPV 9.3 09/18/20 07:34: Sodium 140, Potassium 3.9, Chloride 105, Carbon Dioxide 29.0, Anion Gap 6, BUN 47 H, Creatinine 1.04, Estim Creat Clear Calc 53.89, Est GFR (MDRD) Af Amer 88, Est GFR (MDRD) Non-Af 73, BUN/Creatinine Ratio 45.2 H, Glucose 102, Calcium 9.3, Total Bilirubin 0.40, AST 35, ALT 45, Alkaline Phosphatase 87, Total Protein 7.2, Albumin 3.4, Globulin 3.8, Albumin/Globulin Ratio 0.9 Current Medications Aspirin (Aspirin 81 Mg Tab.Chew) 81 mg PO DAILY@0800 [facility] Last Admin: 09/18/20 09:17 Dose: 81 mg Documented by: Atorvastatin Calcium (Atorvastatin Calcium 40 Mg Tablet) 40 mg PO QHS [facility] Last Admin: 09/17/20 21:21 Dose: 40 mg Documented by: Clopidogrel Bisulfate (Clopidogrel Bisulfate 75 Mg Tablet) 75 mg PO DAILY [facility] Last Admin: 09/18/20 09:19 Dose: 75 mg Documented by: Dexamethasone (Dexamethasone 4 Mg Tablet) 6 mg PO DAILY [facility] Stop: 09/24/20 10:01 Last Admin: 09/18/20 09:17 Dose: 6 mg Documented by: Enoxaparin Sodium (Enoxaparin 100 Mg/Ml Syringe) 90 mg 1 mg/kg (90 mg) SC BID [facility] Furosemide (Furosemide 40 Mg Tablet) 40 mg PO DAILY [facility] Last Admin: 09/18/20 09:18 Dose: 40 mg Documented by: Sodium Chloride () 250 mls @ 15 mls/hr IV .[id number] PRN PRN Reason: Saline Flush Last Admin: 09/18/20 11:56 Dose: 15 mls/hr Documented by: Sodium Chloride () 250 mls @ 15 mls/hr IV .[id number] PRN PRN Reason: Additional IVPB Infusion Remdesivir 100 mg/ Sodium (Chloride) 250 mls @ 125 mls/hr IV DAILY [facility]; Protocol Stop: 09/19/20 11:59 Last Infusion: 09/18/20 13:55 Dose: Infused Documented by: Levothyroxine Sodium (Levothyroxine 100 Mcg Tablet) 100 mcg PO 1000 [facility] Metoprolol Tartrate (Metoprolol Tartrate 100 Mg Tablet) 100 mg PO BID [facility] Last Admin: 09/18/20 09:18 Dose: 100 mg Documented by: Sodium Chloride (0.9% Saline Lock 10 Ml Syringe) 10 - 40 ml IV UD PRN PRN Reason: SALINE FLUSH Last Admin: 09/18/20 11:58 Dose: 10 ml Documented by: STROKE Vital Signs/Narrative: Vital Signs Temp Pulse Resp BP Pulse Ox 09/18/20 15:02 91 09/18/20 15:00 97.6 F L 78 22 H 101/51 L 95 09/18/20 13:35 98 Medical Necessity - Tobacco Use Smoking Status: Former smoker Assessment/Plan All Active Problems CHF (congestive heart failure) (Acute) Pneumonia (Acute) Respiratory failure (Acute) NSTEMI (non-ST elevated myocardial infarction) (Acute) Acute Hypoxic Respiratory Failure 2/2 COVID PNA and NSTEMI -COVID neg but with recent exposure to known + about 6 days ago -decadron 01/23 and remdesivir day 01/18 per ID -wean O2 as able--> weaned to 8 L HFNC--> SpO2 95% -Supportive care -ID and Pulm following NSTEMI -Trop to 29 max and now trended down -asa 81 daily -statin -continue BB but increase to 100 mg BID (home dose is 100) - -continue daily plavix -Continue lasix 40 mg daily but switch to PO from IV -monitor closely -ECHO done 09/15/2020 -EF 30% mod MVI, RVSP 50 mmHg, Mod ant/inf WMA present -Cards following--> will need LHC at some point but timing 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
--- NOTE | 2020-09-18 17:19 | PCM.PN.CARD ---
Subjectve: The patient appears to be resting comfortably today. He still requires nasal cannula therapy at approximately 8 L. He has no new acute cardiovascular complaints. Objective: Vital Signs Temp Pulse Resp BP Pulse Ox 97.6 F L 75 18 105/66 97 09/18/20 17:06 09/18/20 17:06 09/18/20 17:06 09/18/20 17:06 09/18/20 17:06 Oxygen Flow Rate (L/min) 8 Oxygen Delivery Method Nasal Cannula Weight: 184 lb 15.485 oz Body Mass Index (BMI) 29.3 Intake and Output for Last 24 Hours 09/16/20 09/17/20 09/18/20 23:59 23:59 23:59 Intake Total 610 / 850 1290 / 1290 329.75 / 329.75 Output Total 2100 / 2375 825 / 825 Balance -1490 / -1525 465 / 465 329.75 / 329.75 General: Awake, Alert, Oriented x 3, Cooperative, No Acute Distress HEENT: Atraumatic, Normocephalic, PERRL, EOMI, Sclera Non Icteric Neck: No JVD Lungs: Diminished Jorge Bases Cardiovascular: Regular Rhythm, Normal S1, Normal S2 Abdomen: Bowel Sounds Present, Soft Extremities: No edema Psych/Mental Status: Appropriate 09/18/20 07:34: WBC 12.7 H, RBC 4.70, Hgb 14.3, Hct 45.2, MCV 96.2 H, MCH 30.4, MCHC 31.6 L, Plt Count 328, MPV 9.3 09/18/20 07:34: Sodium 140, Potassium 3.9, Chloride 105, Carbon Dioxide 29.0, Anion Gap 6, BUN 47 H, Creatinine 1.04, Est GFR (MDRD) Af Amer 88, Est GFR (MDRD) Non-Af 73, BUN/Creatinine Ratio 45.2 H, Glucose 102, Calcium 9.3, Total Bilirubin 0.40 Rhythm: Sinus rhythm Medical Necessity - Tobacco Use Smoking Status: Former smoker Assessment/Plan 1. Non-ST segment elevation MD At the present time he presents with findings compatible with an acute non-ST segment elevation MD. It is unclear as to whether this was a primary event versus a secondary event brought out by his pneumonia and hypoxemia superimposed upon an underlying previously undiagnosed cardiovascular condition. At the moment he appears without acute symptoms. He is being monitored. He has undergone evaluation with transthoracic echocardiogram. This has demonstrated left ventricular regional wall motion abnormalities and overall diminished LV systolic function/LVEF. It is unclear at this time whether his echocardiographic findings represent a remote event and his cardiac enzyme changes represent a secondary event brought out by his underlying pulmonary disease process versus all being a primary cardiovascular event. He will continue medical therapy such as aspirin, antiplatelets, anticoagulants, nitrates as needed, beta-blockers, lipid-lowering agents, etc. Ideally he would be considered for further evaluation of his coronary anatomy with diagnostic cardiac catheterization. However this may be on temporary hold pending further evaluation/care and stabilization of his pulmonary status with respect to being COVID-19 positive (despite negative studies at this time) barring some unforeseen change. 2. CHF He does appear to have an element of CHF. His O2 status appears to have improved somewhat. He will continue diuretic therapy and monitor his clinical status and his radiologic findings. In the interim he will continue evaluation care as noted. 3. Pneumonia He has been diagnosed with pneumonia. At the moment it appears this is considered COVID-19 positive despite his negative studies potentially based upon his exposure time to other COVID-19 positive people and his current tests being performed too early to demonstrate positivity. He has been evaluated by infectious disease and pulmonology. He is continuing medical therapy as described above. Overall, from a cardiac standpoint, he will continue cardiovascular medical management as long as he remains symptomatically and hemodynamically stable with plans that once he has recuperated from his presumed COVID-19 viral illness to consider further evaluation with diagnostic cardiac catheterization. The above was discussed with the patient. He was agreeable to this approach. The patient's case was also discussed and reviewed with Drs. Lopez and Clem. This note was generated using a voice recognition system and there may be incorrect words, spelling or punctuation that were not noted when reviewing the office note prior to saving.
[2020-09-18] MEDS: Enoxaparin 40 MG/0.4 ML Syringe SC (22:18)
[2020-09-18] MEDS: Atorvastatin Calcium 40 MG Tablet PO (22:18)
[2020-09-19] VITALS (12 sets, daily range): BP systolic 109–120; BP diastolic 55–69; PULSE 61–82; RESP 18–20; TEMP 36.6–36.9; O2SAT 93–99
[2020-09-19 07:12] LABS: Hematocrit 40.8 % (40-54); Hemoglobin 13.3 g/dL (13.0-16.5); Mean Corp Hgb Conc 32.6 g/dL (32-36); Mean Corpuscular Hgb 30.5 pg (27.0-32.0); Mean Corpuscular Volume 93.6 fL (80-94); Mean Platelet Vol. 9.2 fl (6.2-12.0); Platelet Count 311 K/mm3 (150-450); RBC Distribution Width CV 13.8 % (11.6-14.6); RBC Distribution Width SD 47.8 fl (35.1-43.9); Red Blood Count 4.36 M/mm3 (4.6-6.2); White Blood Count 12.8 K/mm3 (4.4-11.0)
[2020-09-19] MEDS: Levothyroxine 100 MCG Tablet PO (07:32)
[2020-09-19] MEDS: dexAMETHasone 4 MG Tablet 6 MG PO (07:44)
[2020-09-19] MEDS: Clopidogrel Bisulfate 75 MG Tablet PO (07:44)
[2020-09-19] MEDS: Furosemide 40 MG Tablet PO (07:45)
[2020-09-19] MEDS: Metoprolol Tartrate 100 MG Tablet PO (07:46)
[2020-09-19] MEDS: Enoxaparin 40 MG/0.4 ML Syringe SC (07:46)
[2020-09-19 07:52] LABS: ALB/GLOB Ratio 0.9 RATIO (0.9-2.4); AST(SGOT) 23 U/L (15-37); Alanine Aminotransfer ALT/SGPT 51 U/L (16-61); Albumin, Serum 3.1 g/dL (3.2-5.0); Alkaline Phosphatase 77 U/L (45-117); Anion Gap 6 (5-15); BUN 45 mg/dL (7-18); BUN/Creat Ratio 47.6 RATIO (10-20); Calcium,Total 8.9 mg/dL (8.5-10.1); Chloride 106 mmol/L (98-107); Creatinine, Serum 0.95 mg/dL (0.70-1.30); EST Glomerular Filtration Rate 81 mL/min (>60); Est Glom Filt Rate - Afr Amer 98 mL/min (>60); Globulin 3.5 g/dL (2.2-4.2); Glucose 113 mg/dL (74-106); Protein, Total 6.6 g/dL (6.4-8.2); Sodium Level 138 mmol/L (136-145)
[2020-09-19] MEDS: Aspirin 81 MG TAB.CHEW PO (09:56)
[2020-09-19] MEDS: 0.9% Saline Lock 10 ML Syringe IV ×2 (10:09→12:30)
--- NOTE | 2020-09-19 14:09 | DCINST_ITS ---
- Discharge Diagnoses Current Active Problems: Current Active and Chronic Problems CHF (congestive heart failure) (Acute) Pneumonia (Acute) Respiratory failure (Acute) NSTEMI (non-ST elevated myocardial infarction) (Acute) You will use the following diet at home:: No restrictions Your food should be the consistency of: Regular Your liquids should be the consistency of: Regular/Thin Discharge Activity: Return to Normal Activity Weight Bearing Status: Full weight bearing Allergies/Adverse Reactions: Allergies No Known Allergies Allergy (Verified 09/14/20 20:30) Medications to take at Discharge Levothyroxine [Synthroid] 100 mcg PO DAILY 09/14/20 Metoprolol Tartrate [Lopressor (beta ginny)] 100 mg PO DAILY 09/14/20 Aspirin, Baby 81 mg PO DAILY 09/15/20 Atorvastatin Calcium [Lipitor] 40 mg PO QHS #30 tab 09/19/20 Clopidogrel Bisulfate [Plavix] 75 mg PO DAILY #30 tab 09/19/20 Dexamethasone [Decadron] 6 mg PO DAILY #15 tab 09/19/20 Furosemide [Lasix] 40 mg PO DAILY #30 tab 09/19/20 Lisinopril [Prinivil] 10 mg PO DAILY #30 tab 09/19/20 Metoprolol Tartrate [Lopressor (beta ginny)] 100 mg PO BID tablet 09/19/20 Potassium Chloride 20 meq PO DAILY #60 capsule.er 09/19/20 The following prescriptions were given: Dexamethasone [Decadron] 6 mg PO DAILY #15 tab Transmission Status: Pending to [facility] Furosemide [Lasix] 40 mg PO DAILY #30 tab Transmission Status: Pending to [facility] Atorvastatin Calcium [Lipitor] 40 mg PO QHS #30 tab Transmission Status: Pending to [facility] Clopidogrel Bisulfate [Plavix] 75 mg PO DAILY #30 tab Transmission Status: Pending to [facility] Potassium Chloride 20 meq PO DAILY #60 capsule.er Transmission Status: Pending to [facility] Lisinopril [Prinivil] 10 mg PO DAILY #30 tab Transmission Status: Pending to [facility] Primary Care Physician: Douglas Ball Chi, MD [Primary Care Provider] - Please follow up with your Primary Care Physician in: in one week Test Results: Test results from this visit will be discussed in further detail at your follow- up appointment, if applicable. Please Follow Up With: Yasmani Curry MD When: in 2 weeks
--- NOTE | 2020-09-20 15:56 | PCM.DC.SUM ---
Discharge Date and Diagnosis - Problem List Patient Problems: Active and Suspected Problems CHF (congestive heart failure) (Acute) Pneumonia (Acute) Respiratory failure (Acute) NSTEMI (non-ST elevated myocardial infarction) (Acute) Date of Admission: 09/15/20 Date of Discharge: 09/19/20 - Primary Discharge Diagnosis Acute Problems: Active Problems #1 probable COVID-19 pneumonia #2 acute hypoxic respiratory failure secondary to #1 and #4 #3 non-STEMI #4 acute systolic congestive heart failure #5 acute kidney injury on a backdrop of acute kidney disease stage III #6 essential hypertension #7 hypothyroidism #8 moderate pulmonary hypertension #9 chronic obstructive pulmonary disease #10 probable ischemic cardiomyopathy Sepsis was ruled out Hospital Course and Treatment Operations: None Procedures: 2-D Echocardiogram Summary of Care Provided: The patient is a 80 year old M was seen in the emergency room at [facility] with a chief complaint of shortness of breath x3 to 4 days. Work-up in the emergency room showed his troponin to be elevated, lactic acid was 2.2, rapid antigen COVID-19 test was negative, chest x-ray showed bilateral interstitial thickening greatest in the lung bases with superimposed airspace opacities seen predominantly in the right lung and minimal atelectasis at the left lung base. Tory pulse ox was 86% on room air. Patient was placed on BiPAP and given IV Lasix and IV dexamethasone-chest x-ray raised the possibility of CHF versus a false negative COVID-19 test. Patient was given IV Rocephin and Zithromax and admitted to the ICU where he was seen by infectious diseases and critical care medicine. Patient's troponin further elevated indicating a non-STEMI and he was seen in consultation by cardiology, echocardiogram was obtained which showed a severely reduced ejection fraction of 30% and evidence of pulmonary hypertension. Patient's respiratory status improved and he was moved out to [place] [id number], he was continued on treatment for possible COVID-19 and congestive heart failure. On 09/19/2020, patient was seen and examined: On examination he appeared in good health and spirits. Vital signs as documented. Skin warm and dry and without overt rashes. Neck without JVD, neck was supple, trachea midline, thyroid was normal. Lungs clear bilaterally, normal air movement was noted. Heart exam notable for regular rhythm, normal sounds and absence of murmurs, rubs or gallops. Abdomen unremarkable and without evidence of organomegaly, masses, or abdominal aortic enlargement. Bowel sounds are present, abdomen is not distended. Extremities nonedematous, no cyanosis was noted, no clubbing was noted. Neuro: Cranial nerves II through XII are grossly intact, no focal motor deficits were noted, sensation to light touch and pinprick intact, motor exam 5/5 throughout. Psych: Patient is alert and oriented x3, he does not appear anxious or depressed, he does not appear agitated. On 09/19/2020, patient was seen and examined, he did not need supplemental oxygen at rest or walking, he was felt stable for discharge home at that time. Patient Problems: Active and Suspected Problems CHF (congestive heart failure) (Acute) Pneumonia (Acute) Respiratory failure (Acute) NSTEMI (non-ST elevated myocardial infarction) (Acute) - Physical Exam Vitals/I&O's: Vital Signs Temp Pulse Resp BP Pulse Ox 98.0 F 65 20 H 109/55 L 95 09/19/20 12:29 09/19/20 12:29 09/19/20 12:29 09/19/20 12:29 09/19/20 12:34 Oxygen Flow Rate (L/min) [ 5 AMBULATION with Oxygen] Oxygen Flow Rate (L/min) 3 Oxygen Delivery Method Room Air Weight: 84.55 kg Body Mass Index (BMI) 29.3 Intake and Output for Last 24 Hours 09/18/20 09/19/20 09/20/20 23:59 23:59 23:59 Intake Total 329.75 / 329.75 250 / 250 Balance 329.75 / 329.75 250 / 250 Microbiology Past 72 Hours 09/14/20 20:53 Blood Culture (Wb) - Anticubital Right Blood Culture - Final No growth in 5 days. 09/14/20 20:45 Blood Culture (Wb) - Anticubital Left Blood Culture - Final No growth in 5 days. Discharge Activity: Return to Normal Activity Weight Bearing Status: Full weight bearing Home Medications: Medications to take at Discharge Levothyroxine [Synthroid] 100 mcg PO DAILY 09/14/20 Metoprolol Tartrate [Lopressor (beta ginny)] 100 mg PO DAILY 09/14/20 Aspirin, Baby 81 mg PO DAILY 09/15/20 Atorvastatin Calcium [Lipitor] 40 mg PO QHS #30 tab 09/19/20 Clopidogrel Bisulfate [Plavix] 75 mg PO DAILY #30 tab 09/19/20 Dexamethasone [Decadron] 6 mg PO DAILY #15 tab 09/19/20 Furosemide [Lasix] 40 mg PO DAILY #30 tab 09/19/20 Lisinopril [Prinivil] 10 mg PO DAILY #30 tab 09/19/20 Metoprolol Tartrate [Lopressor (beta ginny)] 100 mg PO BID tab 09/19/20 Potassium Chloride 20 meq PO DAILY #60 capsule.er 09/19/20 Following Prescriptions Were Given to Patient: Dexamethasone [Decadron] 6 mg PO DAILY #15 tab [facility] Furosemide [Lasix] 40 mg PO DAILY #30 tab Transmission Status[facility] Atorvastatin Calcium [Lipitor] 40 mg PO QHS #30 tab Transmission [facility] Clopidogrel Bisulfate [Plavix] 75 mg PO DAILY #30 tab Transmission [facility]: [facility] Potassium Chloride 20 meq PO DAILY #60 capsule.er Transmission Status: Received by [facility] Lisinopril [Prinivil] 10 mg PO DAILY #30 tab Transmission Status: [facility] Primary Care Physician: Douglas Ball Chi, MD [Primary Care Provider] - Please follow up with your Primary Care Physician in: in one week Please Follow Up With: Yasmani Curry MD When: in 2 weeks Disposition: Home Minutes spent on discharge:: 31 Patient Condition:: Stable Medical Necessity - Tobacco Use Smoking Status: Former smoker Meaningful Use Info Meaningful Use Diagnoses (Choose all that apply): CHF - CHF ANA ROSA/ARB ordered at discharge?: Yes Documented LVEF (%): 30 Inpatient E&M: 44525 Disch Hosp
--- NOTE | 2020-09-21 13:43 | CASEMGMT ---
WILDER CM DC CALL DC Date: 09/20/20 DC Disposition: Home DC Diagnosis: probable COVID pneumonia Attempted to call to home. no answer and no messaging with name identifier. Juan THEODORE RN ACM
== END 2020-09-19 14:57 | disposition home or self-care (01) | DRG 280 ==
LOC: ED 21:39 → ICU 09-15 05:10 → MS2 09-17 21:48
PROVIDERS: Internal Medicine Cardiovascular Disease; Internal Medicine Critical Care Medicine; Internal Medicine Infectious Disease; Admitting Provider Family Medicine; Emergency Provider Emergency Medicine; PCP Family Medicine Geriatric Medicine; Referring Provider Family Medicine; Visit Provider Internal Medicine
DX: I21.4 Non-ST elevation (NSTEMI) myocardial infarction (principal); J96.01 Acute respiratory failure with hypoxia; I50.21 Acute systolic (congestive) heart failure; J18.9 Pneumonia, unspecified organism; I13.0 Hypertensive heart and chronic kidney disease with heart failure and stage 1 through stage 4 chronic kidney disease, or unspecified chronic kidney disease; J44.0 Chronic obstructive pulmonary disease with (acute) lower respiratory infection; N17.9 Acute kidney failure, unspecified; J98.11 Atelectasis; N18.30 Chronic kidney disease, stage 3 unspecified; I27.20 Pulmonary hypertension, unspecified; E03.9 Hypothyroidism, unspecified; I25.5 Ischemic cardiomyopathy; Z68.30 Body mass index [BMI] 30.0-30.9, adult; E66.9 Obesity, unspecified; Z79.899 Other long term (current) drug therapy; Z79.82 Long term (current) use of aspirin; Z79.02 Long term (current) use of antithrombotics/antiplatelets; Z87.891 Personal history of nicotine dependence
CPT/HCPCS: 36415; 71045; 71275; 80048; 80053; 80061; 82550; 83605; 83615; 83735; 83880; 84100; 84145; 84443; 84484; 85025; 85027; 85379; 85384; 85610; 85730; 86140; 87040; 87426; 87635; 93005; 93306; 94002; 94003; 97110; 97116; 97162; 97166; 97530; 97535; 99251; 99285; J7050; Q9957; Q9967; A4216; G0463; J1940; U0002

== ENCOUNTER 2020-11-17 08:46 | Day surgery (SDC) | payer MEDICARE, OTHER, SELFPAY ==
[2020-11-05 15:04] VITALS: BMI 29.7
[2020-11-13 13:48] LABS: Absolute Lymphocyte Count 2.77 X10^3/uL (0.83-4.51); Absolute Neutrophil Count 4.6 X10^3/uL (2.0-7.7); Basophil# 0.05 X10^3/uL; Basophil% 0.6 % (0-1); Eosinophil# 0.49 X10^3/uL; Eosinophils% 5.7 % (0-5); Hematocrit 41.2 % (40-54); Hemoglobin 13.6 g/dL (13.0-16.5); Lymphocyte # 2.77 X10^3/ul (4.0); Mean Corpuscular Hgb 30.6 pg (27.0-32.0); Mean Corpuscular Volume 92.8 fL (80-94); Mean Platelet Vol. 8.8 fl (6.2-12.0); Monocyte# 0.75 X10^3/uL; Monocyte% 8.7 % (0-10); NRBC Flagged by Analyzer 0 % (0-5); Neutrophil # 4.57 X10^3/uL (2.7-7.7); Neutrophil % 52.7 % (47-70); Platelet Count 233 K/mm3 (150-450); RBC Distribution Width CV 13.8 % (11.6-14.6); RBC Distribution Width SD 46.8 fl (35.1-43.9); Red Blood Count 4.44 M/mm3 (4.6-6.2); White Blood Count 8.7 K/mm3 (4.4-11.0)
[2020-11-13 13:56] LABS: Partial Thromboplast Time 29.1 Seconds (24.1-36.2)
[2020-11-13 14:14] LABS: Anion Gap 6 (5-15); BUN 17 mg/dL (7-18); BUN/Creat Ratio 12.9 RATIO (10-20); Calcium,Total 8.9 mg/dL (8.5-10.1); Chloride 106 mmol/L (98-107); Creatinine, Serum 1.32 mg/dL (0.70-1.30); EST Glomerular Filtration Rate 55 mL/min (>60); Est Glom Filt Rate - Afr Amer 67 mL/min (>60); Glucose 106 mg/dL (74-106); Potassium 4.1 mmol/L (3.5-5.1); Sodium Level 140 mmol/L (136-145)
[2020-11-16 09:32] VITALS: BMI 29.6
--- NOTE | 2020-11-17 06:53 | HP_ITS ---
HPI HPI History of Present Illness Surgical H&P: Yes Details: This is an 80-year-old white male who presents today for outpatient hospital follow-up based upon a history of a non-ST segment elevation MO with CHF and concerns of pulmonary hypertension superimposed upon a diagnosis of pneumonia presumed COVID-19 positive (negative COVID-19 test although treated as COVID-19 positive) in September 2020. He underwent noninvasive cardiovascular evaluation at that time with a transthoracic echocardiogram. The results are as noted below. He was released home on medical therapy with a request for outpatient follow-up and further evaluation with diagnostic cardiac catheterization. He states since being home he feels better. He has had no chest discomfort. His breathing has improved. He denies orthopnea or PND. There has been no near syncope or syncope. He states he ran out of his medications from the hospital and reverted back to his previous home medications. Intake Vital Signs 11/05/20 Height 5 ft 8 in 11/05/20 Weight: 195 lb 8 oz 11/05/20 BMI 29.7 11/05/20 BP 122/56 H 11/05/20 Blood Pressure Location Lt brachial 11/05/20 Position Sitting 11/05/20 Respiration 18 11/05/20 Pulse 64 11/05/20 Pulse Source Auscultation Intake Visit Reasons: CHF Patient Accounts Manager Required: No Accompanied by: Self Allergies No Known Allergies Allergy (Verified 11/05/20 15:06) Medications Levothyroxine [Synthroid] 100 mcg PO DAILY 09/14/20 [History Confirmed 09/14/20] Potassium Chloride 20 meq PO DAILY #60 capsule.er 09/19/20 [Rx] furosemide 40 mg tablet 40 mg PO DAILY #30 tab 09/19/20 [Rx Confirmed 11/05/20] lisinopril 10 mg tablet 10 mg PO DAILY #30 tab 09/19/20 [Rx Confirmed 11/05/20] aspirin 81 mg tablet,delayed release 81 mg PO DAILY 11/03/20 [History Confirmed 11/05/20] amlodipine 10 mg tablet 10 mg PO DAILY #90 tab 11/05/20 [Rx Confirmed 11/05/20] atorvastatin 40 mg tablet 40 mg PO QHS #30 tab 11/05/20 [Rx Confirmed 11/05/20] clopidogrel 75 mg tablet 75 mg PO DAILY #30 tab 11/05/20 [Rx Confirmed 11/05/20] lisinopril 10 mg-hydrochlorothiazide 12.5 mg tablet 1 tab PO DAILY #1 tab 11/05/20 [Rx Confirmed 11/05/20] metoprolol tartrate 100 mg tablet 100 mg PO BID #180 tab 11/05/20 [Rx Confirmed 11/05/20] REPLACED BY [facility] Medical History Non-rheumatic mitral regurgitation (Acute) Pulmonary hypertension (Acute) CHF (congestive heart failure) (Acute) Pneumonia (Acute) Respiratory failure (Acute) NSTEMI (non-ST elevated myocardial infarction) (Acute) Family History Grandmother CAD (coronary artery disease) Father CAD (coronary artery disease) Social History (Updated 11/05/20 @ 15:[address] Yasmani Curry MD) Smoking Status: Former smoker alcohol intake: never substance use type: does not use caffeine: Yes Type: coffee Number of servings: 4 ROS Const Const: Negative for fatigue, weakness, frequent falls, excessive sweating, weight gain or weight loss Eyes Eyes: Negative for transient loss of vision, blurry vision or change in vision ENT ENT: Negative for dizziness or balance problems Cardio Chest Pain: No Palpitations: No Edema: None Muscle aches with walking: None Resp Respiratory: Positive for SOB with activity; negative for SOB at rest GI GI: Negative vomiting or vomiting blood/hematemesis : Negative for hematuria Musc Musc: Negative for muscle aches/ myalgia, muscle weakness, joint pain or balance problems Skin Skin: Negative non-healing lesions or rash Neuro Neuro: Negative for dizziness, lightheadedness, orthostatic symptoms, frequent falls, weakness or blurry vision Stephen Hematologic/Lymphatic: Negative for easy bleeding Endo Endo: Negative for fatigue or excessive sweating Psych Psych: Negative for anxiety or depression Allergy Allergy/Immunology: Negative for hives, Negative for rash Cardiology Exam Const Appearance: cooperative, healthy appearing, comfortable, no acute distress, well developed and well groomed Nutritional Appearance: overweight Orientation: alert, awake and oriented x3 Limitations: altered mental status Head Head: normal to inspection, normocephalic and atraumatic Ears: hearing grossly normal bilaterally Nose: external nose normal Face and Sinus: face symmetric Eyes Eyelids: eyelids normal Conjunctivae: conjunctivae normal Pupils: PERRL EOM: EOM intact bilaterally Neck Neck: normal visual inspection and full ROM Carotids: normal carotid upstroke Chest Chest inspection: normal inspection of the chest, symmetric chest movement and normal respiratory effort Auscultation: Bilateral: Clear to Auscultation Cardio Palpation: normal PMI Rate: regular rate Rhythm: regular rhythm Heart sounds: S1 normal and S2 normal GI GI: normal to inspection, soft and bowel sounds present Neuro General: alert, awake, oriented x3 and moves all extremities Skin Skin: no rashes or lesions noted Extremities Pulses: Normal: Right Radial Pulse, Left Radial Pulse Lower Extremity Edema: None: Bilateral Psych Psychological: normal affect Assessment & Plan 1. Non-ST elevation myocardial infarction (NSTEMI) I21.4 Plan At the present time he is going to pursue his evaluation for his cardiovascular status that was diagnosed while in the hospital. He will resume medical therapy which will include reinitiation of medicine such as clopidogrel/Plavix at 75 mg p.o. daily and his atorvastatin to 40 mg p.o. daily. He will continue his other medications as noted. He will pursue further evaluation with diagnostic cardiac catheterization. The procedure and risks were discussed with him and he was agreeable to this approach. Orders Orders: Left Heart Cath/COR/LV Percut Today Basic Metabolic Profile (BMP) Today Partial Thromboplast Time Today Prothrombin Time w/INR Today CBC W/Diff, Automated Today 2. Nonrheumatic mitral valve regurgitation I34.0 Plan He does have a history of MR. This was noted on his echocardiogram. At the moment he will continue medical therapy. He will proceed with additional evaluation as noted. Orders Orders: 12 Lead EKG performed by BMS Today Left Heart Cath/COR/LV Percut Today Basic Metabolic Profile (BMP) Today Partial Thromboplast Time Today Prothrombin Time w/INR Today CBC W/Diff, Automated Today 3. Chronic systolic congestive heart failure I50.22 Plan He does not appear to have ongoing acute CHF at this time. He states he has lost several pounds since being in the hospital. He feels much better. He states his PCP allowed him to stop his diuretic therapy with respect to his furosemide. At the moment he will continue medical therapy and proceed with his outpatient evaluation with his diagnostic cardiac catheterization. 4. Pulmonary hypertension I27.20 Plan He did have elevation of his right-sided pressures on his echocardiogram. It is unclear whether this was related to his acute pulmonary event at the time. At the moment he will continue with his medical management. This can be reassessed in the future with noninvasive and/or invasive studies as deemed appropriate. Orders Orders: 12 Lead EKG performed by BMS Today Left Heart Cath/COR/LV Percut Today Basic Metabolic Profile (BMP) Today Partial Thromboplast Time Today Prothrombin Time w/INR Today CBC W/Diff, Automated Today Plan Detail Other Orders Orders: 12 Lead EKG performed by BMS Today I50.9 Left Heart Cath/COR/LV Percut Today I50.9 Basic Metabolic Profile (BMP) Today I50.9 Partial Thromboplast Time Today I50.9 Prothrombin Time w/INR Today I50.9 CBC W/Diff, Automated Today I50.9 Other Medications New: lisinopril-hydrochlorothiazide 10-12.5 mg 1 tab PO DAILY 1 tab 0RF amlodipine 10 mg PO DAILY 90 tabs 0RF Refilled: atorvastatin 40 mg PO QHS 30 tabs 0RF clopidogrel start on 09/20/20 75 mg PO DAILY 30 tabs 0RF metoprolol tartrate 100 mg PO BID 180 tabs 3RF On Hold: furosemide Hold Comment: Order Changed 40 mg PO DAILY 30 tabs 0RF lisinopril Hold Comment: Order Changed 10 mg PO DAILY 30 tabs 0RF Additional Comments Overall at the present time the patient's medications were discussed and reviewed with him. He will reinitiate appropriate medical therapy in anticipation of an upcoming outpatient diagnostic cardiac catheterization. Again the procedure and risks were discussed with him and he was agreeable to this approach. Follow Up 3 Months (PFM) Coding Level of Care Code Off vis,est,level 4 Diagnoses Non-ST elevation myocardial infarction (NSTEMI) I21.4 Nonrheumatic mitral valve regurgitation I34.0 Chronic systolic congestive heart failure I50.22 ??Heart failure type: systolic ??Heart failure chronicity: chronic Pulmonary hypertension I27.20 Coding Level of Care Code Off vis,est,level 4 Diagnoses Non-ST elevation myocardial infarction (NSTEMI) I21.4 Nonrheumatic mitral valve regurgitation I34.0 Chronic systolic congestive heart failure I50.22 ??Heart failure type: systolic ??Heart failure chronicity: chronic Pulmonary hypertension I27.20 Supplemental Info Supplemental Information Echocardiogram: 09-15-2020 Interpretation Summary The study was technically difficult. Moderate segmental systolic dysfunction (see wall motion). The estimated ejection fraction is 30 %. Apical false tendon noted. Prominent eustachian valve. Mild diffuse mitral valve thickening. Moderate (2+) mitral valve insufficiency. Mild to moderate (1-2+) tricuspid valve insufficiency. Trivial aortic valve insufficiency. Right ventricular systolic pressure estimated to be 50 mmHg c/w pulmonary hypertension. Diastolic function is indeterminate. Labs LDL Cholesterol 150 mg/dL (0-130) H 09/15/20 HDL Cholesterol 27 mg/dL (40-) L 09/15/20 Triglycerides 82 mg/dL (-199) 09/15/20 VLDL Cholesterol 16 mg/dL (5-40) 09/15/20 Diagnostics Electrocardiogram 09/15/20 Echocardiogram 09/15/20 Chest X-Ray 09/17/20 COVID (Procedure Consent) Procedure Criteria Procedure Criteria: Yes Elective The surgeon/proceduralist and patient have discussed in detail the risk of exposure to and/or potential harm posed by the COVID-19 virus with having a surgery/procedure at this time versus the risk of? delaying the surgery/procedure. It is not possible to know either the risk of delaying the surgery or procedure or chance of getting an infection with perfect accuracy, but a joint decision was made between the patient and the surgeon/proceduralist ?to proceed at this time with the scheduled surgery/procedure as indicated on the consent form. I have re-examined the patient. There are no clinical changes since date of exam. I have re-examined the patient. There are no clinical changes since date of exam.
--- NOTE | 2020-11-17 13:04 | CL.D_ITS ---
Patient Name: JENNIFER CUNNINGHAM Study Date: 11/17/2020 Performing: Yasmani Curry MD Ht: 68.11 inches 173 cm : 1940 Wt: 194.01 lbs 88 kg Age: 80 Gender: male BSA: 2.02 PROCEDURE(S) PERFORMED FE63-HQE/LHC/COR/LV CLINICAL PROFILE AND INDICATIONS Indications: Suspected CAD, LV Dysfunction Heart Failure: NYHA Class: 3, Newly Diagnosed: No, Heart Failure Type: Systolic Angina Classification Anginal Classification w/in 2 Weeks: Anginal Equivalent Dyspnea CAD Presentations: Non-STEMI. CONCLUSIONS Right heart pressures - mildly elevated The patient has pulmonary hypertension which is mild. Intracardiac shunting: None Normal Left Ventricular End Diastolic Pressure Segmented LV systolic dysfunction- Mild LVEF: by LV gram 40 % [place] Multivessel CAD RECOMMENDATIONS Risk factor modification Medical therapy Surgery consult for coronary revascularization vs. tertiary care center high risk PCI DESCRIPTION OF PROCEDURE The patient arrived to the procedure lab. The risks and benefits of the procedure as well as a full d escription of our services here and current unavailability of surgical backup were fully explained to the patient and/or their significant other prior to the catheterization. The Timeout was completed, verifying the correct patient and procedure. The patient's procedural site was prepped and draped in the usual fashion. Local anesthetic was given subcutaneously to right groin region with Lidocaine 2%. Using a modified Seldinger technique, arterial access was obtained via the right femoral artery, a 4 Fr sheath was inserted Venous access was obtained via the right femoral vein, a 7Fr sheath was insert ed. A 7Fr thermal dilution catheter was inserted and right heart pressures were recorded, it was then advanced to PA position for cardiac outputs. Thermal dilution cardiac outputs were then recorded. Th ermal dilution cardiac outputs were then recorded. O2 saturations were then obtained. Left Ventriculography was performed in CHOU projection using a 4 Fr. Pigtail catheter. Simultaneous pressur es were then recorded. The Thermal dilution catheter was then removed. Left Coronary Artery selective angiography was performed in multiple views using a 4 Fr. JL5 catheter. Right Coronary Artery select mell angiography was then performed in multiple views using a 4 Fr. 3DRC catheter.The arterial sheath was pulled and manual compression applied until hemostasis is achieved.. The venous sheath was then p ulled and manual compression applied until hemostasis achieved CORONARY ANGIOGRAPHY DOMINANCE: Right Dominant LEFT HEART ASSESSMENT Left Ventricular Ejection Fraction: by LV Gram 40 % Anterior Hypokinesis. Apical Hypokinesis Normal Left Ventricular End Diastolic Pressure LVEDP: 8 mmHg RIGHT HEART ASSESSMENT Thermal CO: 4.98 Thermal CI: 2.47 Jewel CO: 6.92 Jewel CI: 3.43 PW: 7/6 5 PA: 34/7 18 RV: 34/0 6 RA: 7/6 4 PVR: 209 SVR: 1462 Right Heart pressures - elevated Pulmonary Hypertension Mild Intracardiac shunting: None LEFT MAIN: Mild calcification, Proximal and Distal: 50 % Stenosis LEFT ANTERIOR DESCENDING ARTERY: PROX LAD: Mild calcification, 99 % Stenosis, Diffuse: Eccentric: 25 % Stenosis MID LAD: Mild luminal irregularities CIRCUMFLEX ARTERY: OSTIAL CIRC: 50 % Stenosis RAMUS: Mild luminal irregularities RIGHT CORONARY ARTERY: Mild calcification PROX RCA: Eccentric: Hazy: 50 % Stenosis MID RCA: Eccentric: 25 % Stenosis RIGHT AV SEGMENT: Diffuse: Eccentric: 25 % Stenosis AORTIC ROOT: Calcified COMPLICATIONS No Complications PROCEDURE MEDICATIONS Versed 1 mg IV SUMMARY OF HEMODYNAMIC DATA Time AIR REST ECG 09:06:39 ECG 11:06:15 RA 7/6 (4) SV 12:04:55 RV 34/0, 6 12:05:07 PW 7/6 (5) PV 12:06:23 PA 34/7 (18) PA 12:06:39 AO 136/71 (95) SA 12:14:59 LV 117/-12, 8 12:18:05 LV 117/-16, 8 12:18:46 PW 6/4 (3) 12:18:46 LV 115/-5, 9 12:20:03 PW 7/4 (3) 12:20:03 LVp 114/-2, 9 12:20:23 AOp 122/50 (78) 12:20:28 PA 42/16 (28) 12:20:54 RV 33/-1, 6 12:21:10 RA 7/4 (3) 12:21:24 AO 118/48 (74) 12:21:43 AO 127/50 (83) 12:30:35 13:01:40 Type SV CO (l/m) CI (l/m/ HR Time AIR REST Thermal 72.20 4.98 2.47 69 09:06:39 Jewel 100.30 6.92 3.43 69 09:06:39 Label % O2 Pres/Loc Time AIR REST IVC 71 SV 12:13:32 SVC 70 12:13:36 PA 68 PA 12:13:42 AO 92 PV 12:13:50 Signed By Yasmani Curry MD On 11/17/2020 13:03:31 Yasmani Curry MD
[2020-11-17 15:57] VITALS: PULSE 68
[2020-11-17 16:00] VITALS: BP 139/65; PULSE 66; RESP 18; TEMP 36.4; O2SAT 94
--- NOTE | 2020-11-17 16:02 | PCS.PANDOC ---
PANDEMIC DOCUMENTATION INITIATED: Date: 11/17/20 Time: 5191
[2020-11-17 17:00] VITALS: BP 138/68; PULSE 77; RESP 18; O2SAT 97
--- NOTE | 2020-11-17 17:00 | NURSING ---
walked with patient s/p heart cath recovery. dressing c/d/i. no hematoma/bleeding noted. pt tolerated well
[2020-11-17 19:00] VITALS: PULSE 80
--- NOTE | 2020-11-17 19:01 | NURSING ---
Called report to Lisandra HDZ at [facility]
[2020-11-17 20:33] VITALS: BP 132/66; PULSE 91; RESP 18; TEMP 36.5; O2SAT 94
[2020-11-17 20:35] VITALS: BP 132/66; PULSE 91
[2020-11-17] MEDS: Metoprolol Tartrate 50 MG Tablet PO (20:35)
[2020-11-17] MEDS: Atorvastatin Calcium 40 MG Tablet PO (20:35)
[2020-11-19 07:20] LABS: Base Excess 1 mmol/L (-2 to +2); Bicarbonate 25.2 mmol/L (22-26); Blood Gas Specimen Type ART; PO2 59 mmHG (75-100); SO2 92 % (95-99); Total Carbon Dioxide 26 mmol/L; pCO2 35.4 mmHg (35-45); pH 7.46 (7.35-7.45)
[2020-11-19 07:20] LABS: Blood Gas Specimen Type VEN; VBG BASE EXCESS 3 mmol/L (-1.0-3.5); VBG Bicarbonate 27 mmol/L (22-26); VBG PO2 36 mmHg (25-40); VBG SO2 70 % (50-70); VBG SO2 71 % (50-70); VBG TCO2 28 mmol/L (23-33); VBG pCO2 40.6 mmHg (41-51); VBG pH 7.43 (7.32-7.42)
[2020-11-19 07:20] LABS: Blood Gas Specimen Type VEN; VBG BASE EXCESS 2 mmol/L (-1.0-3.5); VBG Bicarbonate 26 mmol/L (22-26); VBG PO2 34 mmHg (25-40); VBG SO2 68 % (50-70); VBG TCO2 28 mmol/L (23-33); VBG pCO2 39.1 mmHg (41-51); VBG pH 7.44 (7.32-7.42)
== END 2020-11-17 21:40 | disposition short-term general hospital (02) ==
LOC: CLSP 08:48 → PCU 15:52
PROVIDERS: PCP Family Medicine Geriatric Medicine; Referring Provider Internal Medicine Cardiovascular Disease; Visit Provider Internal Medicine Cardiovascular Disease
DX: I25.10 Atherosclerotic heart disease of native coronary artery without angina pectoris (principal); I25.2 Old myocardial infarction; I34.0 Nonrheumatic mitral (valve) insufficiency; I27.20 Pulmonary hypertension, unspecified; I50.22 Chronic systolic (congestive) heart failure; Z87.01 Personal history of pneumonia (recurrent); Z79.02 Long term (current) use of antithrombotics/antiplatelets; Z79.82 Long term (current) use of aspirin; Z79.899 Other long term (current) drug therapy; Z87.891 Personal history of nicotine dependence
CPT/HCPCS: 36415; 80048; 82803; 85025; 85610; 85730; 93460; 99152; 99153; J7040; Q9967; C1751; C1769; C1894

== ENCOUNTER → 2020-12-07 10:01 | Outpatient (CLI) | payer MEDICARE, OTHER, SELFPAY ==
[2020-11-16 09:32] VITALS: BMI 29.6
[2020-12-07 11:05] LABS: Absolute Lymphocyte Count 2.16 X10^3/uL (0.83-4.51); Absolute Neutrophil Count 5.1 X10^3/uL (2.0-7.7); Basophil# 0.04 X10^3/uL; Basophil% 0.5 % (0-1); Eosinophil# 0.44 X10^3/uL; Eosinophils% 5.2 % (0-5); Hematocrit 30.6 % (40-54); Hemoglobin 9.3 g/dL (13.0-16.5); Lymphocyte # 2.16 X10^3/ul (4.0); Lymphocyte % 25.4 % (19-41); Mean Corp Hgb Conc 30.4 g/dL (32-36); Mean Corpuscular Hgb 30.1 pg (27.0-32.0); Mean Platelet Vol. 8.3 fl (6.2-12.0); Monocyte# 0.72 X10^3/uL; Monocyte% 8.5 % (0-10); NRBC Flagged by Analyzer 0 % (0-5); Neutrophil % 59.9 % (47-70); Platelet Count 415 K/mm3 (150-450); RBC Distribution Width CV 15.3 % (11.6-14.6); RBC Distribution Width SD 54.8 fl (35.1-43.9); Red Blood Count 3.09 M/mm3 (4.6-6.2); White Blood Count 8.5 K/mm3 (4.4-11.0)
[2020-12-07 11:40] LABS: AST(SGOT) 15 U/L (15-37); Alanine Aminotransfer ALT/SGPT 34 U/L (16-61); Albumin, Serum 3.5 g/dL (3.2-5.0); Alkaline Phosphatase 89 U/L (45-117); Anion Gap 9 (5-15); BUN 16 mg/dL (7-18); BUN/Creat Ratio 12.9 RATIO (10-20); Calcium,Total 9.1 mg/dL (8.5-10.1); Chloride 102 mmol/L (98-107); Creatinine, Serum 1.24 mg/dL (0.70-1.30); EST Glomerular Filtration Rate 59 mL/min (>60); Est Glom Filt Rate - Afr Amer 72 mL/min (>60); Globulin 3.4 g/dL (2.2-4.2); Glucose 113 mg/dL (74-106); Potassium 4.2 mmol/L (3.5-5.1); Protein, Total 6.9 g/dL (6.4-8.2); Sodium Level 137 mmol/L (136-145)
== END ==
PROVIDERS: PCP Family Medicine Geriatric Medicine; Visit Provider Family Medicine Geriatric Medicine
DX: I10 Essential (primary) hypertension (principal); E55.9 Vitamin D deficiency, unspecified
CPT/HCPCS: 36415; 80053; 82306; 84443; 85025

== ENCOUNTER → 2020-12-17 08:12 | Outpatient (CLI) | payer MEDICARE, OTHER, SELFPAY ==
[2020-11-16 09:32] VITALS: BMI 29.6
--- NOTE | 2020-12-17 08:14 | RAD_ITS ---
STUDY: X-RAY - ESOPHAGUS (BARIUM SWALLOW) WITH FLUOROSCOPY REASON FOR EXAM: Male, 80 years old. DYSPHAGIA/UNSPECIFIED TYPE TECHNIQUE: 22 view(s) of the esophagus were obtained following swallowing of barium. FLUOROSCOPY TIME (if supplied): (0:25) minutes/seconds COMPARISON: None. FINDINGS: There is no demonstrated esophageal foreign body. There is no demonstrated stricture or mucosal abnormality. There is a small hiatal hernia of the fundus of the stomach. The patient refused to ingest the 12 mm tablet of barium. Normal visualized aortic arch and descending thoracic aorta. Normal visualized pulmonary parenchyma. Normal visualized osseous structures of the thorax. RAD/Esophagus Dual Contrast IMPRESSION: Small sliding hiatal hernia without reflux. Electronically Signed: Rohan Mitchell MD at 10:10 EST , Service support ,
--- NOTE | 2020-12-17 15:05 | RAD_ITS ---
STUDY: X-RAY CHEST REASON FOR EXAM: Male, 80 years old. S/p CABG TECHNIQUE: PA and lateral views of the chest. COMPARISON: Comparison is made with prior study dated 09/17/2020. FINDINGS: Hyperinflation. Mild increased linear markings at the lung bases suggestive of bibasilar linear atelectasis. There is no demonstrated pleural abnormality. Sternal cerclage wires and vascular clips are present from a prior sternotomy and coronary artery bypass graft procedure (CABG). Normal mediastinum and duane. Normal visualized pulmonary arteries. There is atherosclerotic calcification of the aortic arch with tortuosity. There is demineralization of the osseous structures. Normal visualized ribs, clavicles, and shoulders. There is no demonstrated abnormality of the visualized soft tissue structures of the upper abdomen. RAD/Chest PA and Lateral IMPRESSION: Status post CABG. Mild degree of increased linear markings at the lung bases suggestive of linear atelectasis. Electronically Signed: Rohan Mitchell MD at 15:40 EST , Service support ,
== END ==
PROVIDERS: PCP Family Medicine Geriatric Medicine; Referring Provider Nurse Practitioner Adult Health; Visit Provider Nurse Practitioner Adult Health
DX: R13.10 Dysphagia, unspecified (principal)
CPT/HCPCS: 71046; 74221

== ENCOUNTER → 2020-12-23 08:07 | Outpatient (CLI) | payer MEDICARE, OTHER, SELFPAY ==
[2020-12-17 14:10] VITALS: BMI 29.0
--- NOTE | 2020-12-23 08:18 | PCM.CR.HP2 ---
CR - History & Physical - General Arrival date:: 12/23/20 Arrival time:: 08:19 Date of Referral:: 12/18/20 Date of CR Evaluation:: 12/23/20 Referring Physician: Dr. Yasmani Curry Primary Diagnosis: Z95.1 CABG - History of Present Cardiac Event Onset Date: Enter Onset Date of cardiac illnesses in Comment field below Coronary Artery Bypass Graft:: Yes - 11/25/2020 - Medications Home Medications: Ambulatory Orders Medication Instructions Recorded Levothyroxine [Synthroid] 100 mcg PO DAILY 09/14/20 aspirin 81 mg tablet,delayed 81 mg PO DAILY 11/03/20 release acetaminophen 325 mg tablet 650 mg PO Q4H PRN tab 11/30/20 tamsulosin 0.4 mg capsule 0.4 mg PO DAILY 11/30/20 amlodipine 10 mg tablet 10 mg PO DAILY 12/17/20 atorvastatin 40 mg tablet 40 mg PO QHS #90 tab 12/17/20 metoprolol tartrate 25 mg tablet 12.5 mg PO BID #90 tab 12/17/20 pantoprazole 40 mg tablet,delayed 40 mg PO DAILY #90 tab 12/17/20 release - Allergies Allergies/Adverse Reactions: Allergies No Known Allergies Allergy (Verified 12/17/20 14:06) - Sleep Disorder Evaluation Hx of Sleep Apnea: No Do you snore loudly (louder than talking or can be heard through closed doors)?: No Do you often feel tired/ fatigued/ sleepy during daytime?: No Has anyone observed you stop breathing during sleep?: No History of Hypertension (for STOP score): Yes STOP Results: Negative Advanced Directives - Advanced Directives Power of Senior Programmer: Yes Living Will: Yes Advance Directives Information Provided: Yes Advance Directives on File: Yes DNR Order?:: No Past Medical History - Covid-19 Screening Fever: No Unexplained muscle aches: No Current respiratory symptoms: No Upper respiratory infections symptoms: No Gastro-intestinal symptoms: No Irp-Ramp-Msvlbd symptoms: No Has tested positive for COVID-19 in last 30 days: No Had contact w/person w/symptoms or Covid-19 (+) last 14 days: No Has High Risk Exposures ID'd by Health dept/Inf Control team: No 65 years or older:: Yes Lives in Assisted Living facility:: No Has a chronic lung disease or moderate to severe asthma:: No Has a serious heart condition:: Yes Immunocompromised:: No Severely obese (Body Mass Index of 40 or higher):: No Diabetic:: No Has chronic kidney disease undergoing dialysis:: No Has liver disease:: No - Past Medical Illness Medical History: Past Medical History (Last Reviewed 12/17/20 @ 14:30 by Kristin REILLY, PA) Atherosclerotic heart disease of [place] coronary artery without angina pectoris (Chronic) I25.10 Non-rheumatic mitral regurgitation (Acute) I34.0 Pulmonary hypertension (Acute) I27.20 CHF (congestive heart failure) (Acute) I50.9 Pneumonia (Acute) J18.9 Respiratory failure (Acute) J96.90 NSTEMI (non-ST elevated myocardial infarction) (Acute) I21.4 - Past Surgical History Surgical History: Past Surgical History (Last Reviewed 12/17/20 @ 14:30 by Kristin REILLY, PA) History of coronary artery bypass surgery (Chronic) Onset Date: ~11/25/20 Z95.1 CABG x2- BLEVINS to LAD; CY/SVG (tandem graft via transverse sinus) to [place] 11/25/20 @ [facility] [address] Dr[address] Antony - Family History Summary Family History: Family History (Last Reviewed 12/17/20 @ 14:30 by Kristin REILLY, PA) Grandmother CAD (coronary artery disease) Father CAD (coronary artery disease) Social History - Smoking History Smoking Status: Former smoker Years Smokin Packs Smoked per Day: 1 Hx Smoking Cessation Date: 10/16/85 Hx Tobacco Use: Yes Hx Smoking Exposure: No - Alcohol Use Alcohol Usage: No - Substance Abuse Hx Substance Use: No - Occupation Occupation (List type of work in comments):: Retired - Hobbies, Recreation, Social Activities Hobbies: Woodworking Recreational Activities: I am able to engage in all my recreational activities Social Environment - Status Marital Status: - Current Living Arrangements Living Environment:: Family - Children How many children do you have?: 6 Do any of your children live nearby?: Yes - Safety Do you feel safe in your surroundings?: Yes - Assistance Do you need any assistance at home?: no Review of Systems - Review of Systems Hints: Right click = Denies (Slash). Left click = Reports ([place]) Review of Present Symptoms: Reports: Shortness of Breath with Exertion, Fatigue, Appetite - Normal, Sleep - Normal. Denies: Shortness of Breath at Rest, PVD, Operative Discomfort, Angina, Wound Healing, Dizziness/Lightheadedness, Heart Arrhythmia/Irregularities, Appetite - Special Diet, Sexual Changes - Pain Is Patient Pain Free?: Yes Risk Factor Assessment - Chief Complaint Chief Complaint: CABG - Vital Signs Pulse Ox: 96 Blood Pressure: 126/64 - Pulse Pulse Rate: 85 Pulse Rhythm: Regular - Hypertension How long have you been treated?: 30 - Diabetes Nutrition Referral for Diabetes: No - Obesity Height: 5 ft 7 in Weight:: 83.915 kg Weight in Pounds: 185.0 lbs Body Mass Index (BMI): 29.0 Nutritional Referral for Obesity: No - Physical Inactivity Physical Inactivity: Reg Exercise 30 min/day, Recreational activity - Risk Stratification Risk Guidelines: Lowest Risk: Risk Factor for Smoking, Moderate Risk: Risk Factor for Dyslipidemia, Risk Factor for Diabetes, Risk Factor for Obesity, Risk Factor for Hypertension, Risk Factor for Sedentary Lifestyle, Risk Factor for Depression - For Smoking Smoking Risk Guidelines: Smoking Low Risk: None or quit greater than 6 months ago. Smoking Moderate Risk: Smoker or quit 6 months or less ago. Smoking High Risk: Smoker - For Dyslipidemia Dyslipidemia Risk Guidelines: Low Risk: Moderate Risk: High Risk: 15-25% fat 25.1-29% fat >/= 30% fat. <7% sat fat 7-9% sat fat >9% sat fat. <150 mg chol 150-299 mg chol >/= 300 mg chol. LDL <100 LDL 100-129 LDL >/= 130. Chol/HDL ratio <5.0 Chol/HDL ratio 5.0-6.0 Chol/HDL ratio >6.0. Triglycerides <100 Triglycerides 100-149 Triglycerides >/= 150 - For Diabetes Mellitus Diabetes Risk Guidelines: Diabetes Low Risk: HgA1c <6.5% and/or FBG <120. Diabetes Moderate Risk: HgA1c 6.6-7.9% and/or FBG 120-180. Diabetes High Risk: HgA1c >/= 8% and/or FBG >180 - For Obesity/Overweight Obesity/Overweight Risk Guidelines: Obesity Low Risk: BMI <25.0. Obesity Moderate Risk: BMI 25-29.9. Obesity High Risk: BMI >/= 30.0 - For Hypertension Hypertension Risk Guidelines: Hypertension Low Risk: Systolic <120 and Diastolic <80. Hypertension Moderate Risk: Systolic 120-139 and Diastolic 80-89. Hypertension High Risk: Systolic >/= 140 and Diastolic >/= 90 - For Sedentary Lifestyle Sedentary Lifestyle Risk Guidelines: Sedentary Lifestyle Low Risk: >/= 1,500 kcal/week. Sedentary Lifestyle Moderate Risk: 700-1,499 kcal/week. Sedentary Lifestyle High Risk: < 700 kcal/week - For Depression Depression Risk Guidelines: Depression Low Risk: Not clinically depressed. Depression Moderate Risk: Mildly depressed. Depression High Risk: Clinically depressed - Family History Family History: Family History (Last Reviewed 12/17/20 @ 14:30 by Kristin Leigh PA, PA) Grandmother CAD (coronary artery disease) Father CAD (coronary artery disease) Motivation - Motivation to Participate On a scale of 1 to 10, how prepared are you to commit to attending program?: 7 What do you see as barriers to successfully being able to complete the program?: none What do you see as the benefits of succesfully completing the program? In other words, what do you hope to get out of participating in the program?: improved health, knowledge Are there issues you are dealing with that will interfere with completing the program?: no Do you have a spouse or signficant other, family or friends who will help support you to complete the program?: family
--- NOTE | 2020-12-23 08:19 | CR.ITP_ITS ---
Diagnosis - General Information Admitting Diagnosis: Z95.1 CABG Personal Learning Style:: Audio/Visual, Demonstration, Group, Individual Preference, Written Barriers to Learning: Vision Impairment Stage of change r/t lifestyle modifications:: Contemplation Gave educational material for:: Treating Heart Disease, Emotions & Heart Disease, Stress Management & Relaxation, Sleep Disorders & Heart Disease, How The Heart Works, What it means to have Heart Disease, How Coronary Artery Disease is Diagnosed, Heart Procedures, What Heart Medications Do, Risk Factors & Modifications, Living an Active Life, Nutrition - Education/Goals Cardiac Rehabilitation Goals: 1. Maintain the individual as the primary focus of care. 2. To improve the patient's quality of life. 3. Identification of cardiac risk factors and provide cardiac risk factor management. 4. Enhance the psychosocial status of the patient. 5. Reconditioning enough to allow the patient to resume customary activities. 6. Control symptoms of cardiac disease Personal Goals: Initial Assessment: Improve energy level, Get back to work, or to resume activities faster, Improve knowledge of cardiac disease, Improve muscle strength and endurance Scale for measuring improvement of personal goals: Enter appropriate number in Comments. 2 = Unchanged. 3 = Slightly Better. 4 = Moderate Improvement. 5 = Met my Goal - Diagnosis & Disease Process Outcomes/Goals: Pt IDs own risk factors & lifestyle modifications by Session 10, Verbalizes symptoms of angina & response by session 3., Pt independently manages, Other Additional Outcomes/Goals: 30 day Reassessments:: Not Met 30 day Reassessments:: Not Met 30 day Reassessments:: Not Met 30 day Reassessments:: Not Met Final Reassessments:: Not Met - Safety Referral to Physical Therapy: No Referral to [facility] Case Management: No Fall Risk Assessed:: Yes Assistive Devices:: None Exercise - Initial Assessment - Visit Date of Eval: 12/23/20 - initial eval Mets: Pre-: >5 METS for 30 minutes by discharge - Physician Prescribed Exercise Modalities: Treadmill, Biodyne, Airdyne, NuStep, SciFit Frequency: 3x/week for 12 weeks [36 sessions] Intensity: 60-80% of age predicted maximum heart rate reserve Resting Blood Pressure: 126/64 EKG Type: NSR with frequent PAC - Outcomes & Goals Goals:: Verbalizes understanding of THR, RPE & goal METS by session 6, Documents in home exercise log/reports 30 min aerobic 5 day/wk by DC, Demonstrates accurate pulse taking by DC, Other additional outcome/goals: see below - Intervention & Plan Exercise Program Goals: Instruct on personal THR & RPE, Instruct on MET level & personal MET goal, Show patient to take own pulse /validate performance until accurate, Instruct on home exercise, Other additional plan/int - Physical Activity Home Exercise Physical Activity - Home Exercise: Safe Exercise, Warm-up, Self-monitoring, Cool-Down, Home Exercise > 30 min Daily, Sitting Time <3 hours/daily - Outcomes & Goals Outcomes/Goals: Demonstrates correct Warm-up/exercise Cool-Down (S3) if = 2.5 METs, Verbalizes symptoms of exercise intolerance by Session 3 (S3), Demonstrate safe equipment use (S3) & follows exercise prescrition (6), Other: See below - Intervention & Plan Plan/Intervention: Instruct warm-up & cool-down if exercising at > 2 METs, Instruct on symptoms of exercise intolerance & actions to take, Instruct & monitor on saf, Assess intial functional capacity & safety risk, Other See below Nutrition - Initial Assessment - Program Goals Nutrition Program Goals: LDL <100 optimal. 100 - 129 Near optimal. 130 - 159 Borderline High. 160 - 189 High. Total Cholesterol <200 desirable. 200 - 239 Borderline High. >/= 240 High. HDL < 40 Low >/=60 High. Triglycerides <150 desirable. <199 optimal. VlDL 5 - 40. HgbA1C <7%. BMI <25 - Visit Date of Assessment:: 12/23/20 - initial eval - Cholesterol/Lipids Determine presence & major risk factors that modify LDL goal: Cigarette smoking, Hypertension or hypertensive medication, Low HDL cholesterol <40 mg/dL*, Family history of premature CHD in Male < 55 years: female <65 yearsFa, Age men > 45 years; women >/= 55 years Outcomes/Goals: Pt IDs own risk factors & lifestyle modifications by Session 10, Verbalizes symptoms of angina & response by session 3., Pt independently manages, Other Additional Outcomes/Goals: Intervention/Plan: Advocate for lipid panel cholesterol medication if applicable, Instruct on personal lipid levels & lipid goals/NCEP guidelines, Instruct on cholesterol, Other additional plan/int Referral to dietitian:: No - Diabetes (Other Core Measures) Diabetes Type: Not Applicable - Weight Mgt (Other Care) Height: 5 ft 7 in Weight:: 83.915 kg BMI: 29.0 Diagnosis Overweight/Obesity BMI> 30% ICD-10 E66: No Diagnosis High BMI/Morbid Obesity BMI> 35% ICD-10 Z68: No Outcomes/Goals: Pt sets, maintains & shows weight loss goal & trend during rehab, Other additional outcomes/goals Intervention/Plan: Instruct on ideal BMI & set weight loss goal w/patient, Assist pt to ID & incorporate diet changes for weight loss by S9, Refer to Structured Weight Loss program as appropriate, Encourage goal of using 250- 300dcal per session for weight loss, Other additional plan/interventions - Healthy Eating Habits Will attend diet classes:: Yes Outcomes/Goals:: Consume diet rich in vegs,fruits,whole grain/high fiber,fish,lean meat, Limit sat/trans fats,cholesterol & added salts & sugars, Other additional outcome/goals: Intervention/Plan:: Assess current eating habits, Other Additional plan/interventions - Education Gave educational materials for:: Signs & symptoms of hypoglycemia, Signs & symptoms of hyperglycemia, Relate diabetes to coronary artery disease, Healthy eating Medical - Initial Assessment - Visit Date of Eval: 12/23/20 - initiall eval - Medication Compliance Preventative Medication(s):: Aspirin, Beta ginny H/O mental health issues: depression, anxiety, or addiction?: No Doesn?t believe in the benefits of treatment?: No Believes medications are unnecessary or harmful?: No Has a concern about medication side effects?: No Expresses concern over the cost of medications?: No Outcomes/Goals: Verbalizes medications,desired effect & common side effects @ DC, Pt self-reports following medication regimen, Keeps card in wallet w/medications listed by DC, Other additional outcome/goals: Interventions/plans: Instruct on medication effects & side effects, Review medication list w/patient every two weeks, Instruct importance of taking meds as ordered & assist problem solving, Other additional - Tobacco Use Tobacco Use: Non-smoker How long ago did you quit using tobacco products?: Greater than or equal to 6 months ago Do you use smokeless tobacco?: No - Hypertension Hypertension Diagnosis:: Hypertension ICD-10 I10 [place] [employer] Hypertension Guidelines: [place] [employer] Hypertension Guidelines. Normal BP Less than 120/80. Elevated BP 120/80. Hypertension Stage 1: BP 130-139/80-89. Hypertesnion Stage 2: BP 140 or higher/90 or higher. Hypertension Crisis: BP higher than 180/120 Outcomes/Goals: Able to verbalize/achieve optimal blood pressure <130/80, Incorporates diet changes & exercise for blood pressure control by DC, Other additional outcomes/goals Interventions/plan: Instruct on optimal blood pressure, hypertension & medications, Instruct on effects of sodium, alcohol, stress, exercise &hypertension, Other additional plan/interventions - Tobacco Cessation Referral Smoking Cessation Referral:: No Individual Education/Counseling:: No Education Schedule Given:: Yes Psychosocial - Initial Assess - VIsit Date of Eval: 12/23/20 - initial eval History of previous Mental disease:: No - Target Goals Target Goals: Assess presence or absence of depression. Using a valid screening tool, maximizes coping skills. Positive support system - Psychosocial Test phq-9 Severity: Severity. 1-4 Minimal Depression. 5-9 Mild Depression. 10-14 Moderate Depression. 15-19 Moderately Sever Depression. 20-27 Severe Depression. Rule: - Outcomes/Goals: See list Psychosocial Outcomes/Goals:: ID's personal stressors & 2 strategies to manage stress by discharge, Other Additional outcome/goals: - Intervention/Plan: See List Interventions/Plan:: Assess stressors,coping strategies & signs of derpression on admission, Instruct/assist pt to develop coping & personal stress Mgt strategies, Refer to Behavioral Health if appropriate, Refer to Physician if appropriate, Instruct patient to recognize signs & symptoms of depression, Instruct patient to recog, Other additional plan/intervention Patient Health Questionnaire Initial Assessment 1. Little interest or pleasure in doing things: Several days 2. Feeling down, depressed, or hopeless: Several days 3. Trouble falling or staying asleep, or sleeping too much: Not at all 4. Feeling tired or having little energy: Not at all 5. Poor appetite or overeating: Not at all 6. Feeling bad about yourself -- or that you are a failure or have let yourself or your family down: Several days 7. Trouble concentrating on things, such as reading the newspaper or watching television: Not at all 8. Moving or speaking so slowly that other people could have noticed. Or the opposite - being so fidgety or restless that you have been moving around a lot more than usual: Not at all 9. Thoughts that you would be better off , or of hurting yourself in some way: Not at all How difficult have these problems made it for you to do your work, take care of things at home, or get along with other people?: Not difficult at all Total Score: 3 GUANAKO-Q SV Test - Statements CAD is a disease of the arteries in the heart: False Examples of risk factors for heart disease: True Angina is chest pain or discomfort: True The benefits of resistance training include: I Don't Know Eating more meat and dairy products: True Anti-platelet medications such as aspirin are important: True The only effective way to manage stress: False An exercise warm-up slowly increases heart rate: I Don't Know Prepared, processed foods usually have high sodium: True Depression is common after a heart attack: True The statin medications lower cholesterol: True To control blood pressure, lower the amount of sodium: True If someone gets chest discomfort during walking: False Transfats are partially hydrogenated vegetable oils: I Don't Know Sleep apnea that is not treated increases the risk: I Don't Know To control cholesterol, one should become a vegetarian: I Don't Know Someone knows if he/she is exercising at the right level: False Diabetes cannot be prevented with exercise & health eating: False Stress is a large risk for heart attack: I Don't Know A diet that can help lower blood pressure is rich in: True - Total Score Total Correct Responses: 12 Self-Efficacy Initial Assessment We would like to know how confident you are in doing certain activities. Please select your confidence level for:: Select your confidence level for the following using the scale 1-10 where 1 is not at all confident and 10 is totally confident. Your score is the average of all 6 responses. Fatigue: How confident are you that you can keep the fatigue caused by your disease from interfering with the things you want to do? Select Number: 6 Physical Discomfort or Pain: How confident are you that you can keep the physical discomfort or pain of your disease from interfering with the things you want to do? Select Number: 6 Emotional Distress: How confident are you that you can keep the emotional distress caused by your disease from interfering with the things you want to do? Select Number: 6 Other Symptoms or Health Problems: How confident are you that you can keep other symptoms or health problems from interfering with the things you want to do? Select Number: 6 Different Tasks and Activities: How confident are you that you can do the different tasks and activities needed to manage your health condition so as to reduce your need to see a doctor? Select Number: 6 Medication: How confident are you that you can do things other than just taking medication to reduce how much your illness affects your everyday life? Select Number: 6 Total Score:: 6 Nutrition Survey - Nutrition Survey Instructions Scoring Instructions: Scoring is as follows: Yes = 1 points. No = 0 point. Patient score that is >/=12 is considered to be at potential nutritional risk and could benefit from a referral to a registered dietitian. - Nutrition Survey Initial Have you lost >10 lbs over the past 2 months without trying?: No Are you following a special diet at home for diabetes, low fat, or low salt?: No Are you interested in meeting with a dietitian for help understanding your diet?: No Do you eat less than 3 meals a day?: No Do you eat fatty meats (parkinson, sausage, ribs, etc), fried foods, desserts, large amounts of salad dressings, margarine, butter, or cheese most days?: No Do you have food allergies? [Enter types in comment field]: No Do you eat in restaurants more than 3 times a week?: No Do you season food with salt, seasoning salt, or garlic salt?: Yes Do you used canned, boxed, frozen meals, or soups, seasoning packets?: Yes Total Score:: 2
[2020-12-23 09:20] VITALS: BP 126/64; PULSE 85; O2SAT 96; BMI 29.0
== END ==
PROVIDERS: PCP Family Medicine Geriatric Medicine; Referring Provider Internal Medicine Cardiovascular Disease; Visit Provider Internal Medicine Cardiovascular Disease
DX: I25.10 Atherosclerotic heart disease of native coronary artery without angina pectoris (principal); Z95.0 Presence of cardiac pacemaker; I27.20 Pulmonary hypertension, unspecified; I50.9 Heart failure, unspecified; I25.2 Old myocardial infarction; I34.0 Nonrheumatic mitral (valve) insufficiency; Z87.01 Personal history of pneumonia (recurrent); Z79.82 Long term (current) use of aspirin; Z79.899 Other long term (current) drug therapy

== ENCOUNTER 2020-12-25 10:11 | Outpatient (RCR) | payer MEDICARE, OTHER, SELFPAY ==
[2020-12-23 09:09] VITALS: BMI 29.0
== END 2021-01-13 23:59 ==
LOC: CR 10:11
PROVIDERS: PCP Family Medicine Geriatric Medicine; Visit Provider Internal Medicine Cardiovascular Disease
DX: Z95.1 Presence of aortocoronary bypass graft (principal)
CPT/HCPCS: 93798

== ENCOUNTER 2020-12-28 09:00 | Inpatient (IN) | payer MEDICARE, OTHER, SELFPAY ==
[2020-12-23 09:20] VITALS: BMI 29.0
[2020-12-28] VITALS (14 sets, daily range): BP systolic 85–144; BP diastolic 34–71; PULSE 78–102; RESP 14–20; TEMP 36.1–37.4; O2SAT 87–100; BMI 28.1; BMI 28.0; BMI 83.9
--- NOTE | 2020-12-28 09:12 | EKG12_ITS ---
Test Reason : EDEMA Blood Pressure : / mmHG Vent. Rate : 090 BPM Atrial Rate : 090 BPM P-R Int : 200 ms QRS Dur : 088 ms QT Int : 370 ms P-R-T Axes : 052 041 108 degrees QTc Int : 452 ms Normal sinus rhythm with sinus arrhythmia Septal infarct , age undetermined Abnormal ECG Confirmed by SAMINA CULLEN, MARGARITA ([id number]), assignment editor TITUS HIGH ([id number]) on 12/30/2020 10:13:13 AM Referred By: SHADIA Confirmed By:MARGARITA HAAS MD
--- NOTE | 2020-12-28 09:12 | VDLE_ITS ---
Reason For Study: Swelling Procedure LEFT This is a venous duplex using B-mode, color CFV is compressible, spontaneous, phasic, flow and spectral Doppler. competent, and demonstrates normal Exam performed portable in ED. augmentation. A preliminary report was called and/or faxed FV is compressible, spontaneous, phasic, to Shimon. competent and demonstrates normal augmentation. POP V is compressible, spontaneous, phasic, competent and demonstrates normal augmentation. T/P Trunk is compressible. PTV is compressible. LT PerV is compressible. GSV below knee is compressible. GSV above knee was harvested. Large nonvascularized structure noted from the prox-distal thigh, in area of GSV harvesting. Largest portion measuring 2.43 x 2.97 cm. Interpretation Summary There is no evidence of left lower extremity deep vein thrombosis. Left great saphenous vein appears patent and compressible segmentally. Report of surgically harvested left above-knee great saphenous vein. Large linear nonvascularized structure from the proximal to distal thigh in the area of vein harvesting. Largest area in diameter measures 2.43 x 2.97 cm. This would be consistent with hemorrhage into the harvest site. Clinical correlation however would be appropriate. Patent and compressible left below-knee great saphenous vein Ordering Physician: Kip Robins Referring Physician: Douglas Ball Chi Performed By: Nadiya Garcia RVT
--- NOTE | 2020-12-28 09:17 | ED.DCSUM_ITS ---
History of Present Illness Chief Complaint: Edema Informant: Patient, Family Onset: Days - Onset December 26 Context: Sudden Onset Timing: Continuous Quality: Pain, swelling, redness Location: Medial left thigh between incision sites vein harvest Current Severity: Moderate Maximum Severity: Moderate Worsened by: Nothing Relieved by: Nothing Associated Symptoms: Shortness of breath Narrative: She is an elderly male who underwent coronary artery bypass surgery November at [facility]. Patient had saphenous vein harvesting left thigh. He presents because of initial irritation on Monday which has gotten worse with redness, swelling and discomfort. He reports shortness of breath that started the past 24 hours. He denies chest pain of any type including pleuritic. He is on aspirin. He is on no anticoagulant. He denies fever, chills night sweats. He denies any upper respiratory symptoms. He denies cough. He denies abdominal pain, nausea, vomiting or diarrhea. Denies dysuria, frequency, urgency or hematuria. He has no allergies to antibiotics. Prior similar symptoms: No Recent Illness/Hospitalization: Yes - Past Medical History (1) CHF (congestive heart failure) Status: Acute (2) NSTEMI (non-ST elevated myocardial infarction) Status: Acute (3) Non-rheumatic mitral regurgitation Status: Acute (4) Pulmonary hypertension Status: Acute (5) Atherosclerotic heart disease of [place] coronary artery without angina pectoris Status: Chronic (6) History of coronary artery bypass surgery Status: Chronic Comment: CABG x2- BLEVINS to LAD; CY/SVG (tandem graft via transverse sinus) to Ramus 11/25/20 @ [facility] by Dr. Antony (7) Hypertension Status: Chronic Past Medical History - Allergies and Home Meds Allergies/Adverse Reactions: Allergies OPIATES Adverse Reaction (Uncoded 12/28/20 09:04) Low blood pressure Primary Care Physician: Douglas Ball Chi, MD [Primary Care Provider] - Surgical History: coronary bypass surgery, - - Cardiac catheterization Lives: Alone Smoking Status: Former smoker Alcohol: None Drugs: None - Family History Maternal Family History: Family History (Last Reviewed 12/17/20 @ 14:30 by Kristin REILLY, PA) Grandmother CAD (coronary artery disease) Father CAD (coronary artery disease) Family History: Reports: No pertinent history Review of Systems General: Denies: Chills, Fever, Malaise, Subjective Eyes: Denies: Visual changes - bilaterally, Blurred Vision - bilaterally ENT: Denies: Rhinorrhea, Sore throat Cardiovascular: Denies: Chest pain, Palpitations Respiratory: Denies: Dyspnea, Cough, Dyspnea on exertion Gastrointestinal: Denies: Abdominal pain, Nausea, Vomiting, Diarrhea Genitourinary: Denies: Dysuria, Hematuria, Frequency Musculoskeletal: Reports: Swelling, Extremity Pain. Denies: Myalgias, Arthralgias, Neck pain, Back pain Skin: Reports: Rash Neurological: Reports: Weakness. Denies: Headache Endocrine: Denies: Polyuria, Polydipsia Hematologic: Denies: Easy bruising, Easy bleeding Allergy: Denies: Uticaria Physical Exam Vital Signs/Narrative: Vital Signs Temp Pulse Resp BP Pulse Ox 12/28/20 09:01 97 F L 102 H 16 144/71 H 97 Inital Vital Signs reviewed: Yes General: Well nourished, Well developed, Acute Distress Head: Normocephalic, Atraumatic Eyes: Perrl, EOMI. Negative for: Pale conjunctiva ENT: No rhinorrhea, TM's clear. Negative for: Moist mucous membranes, Nasal congestion, Sinus tenderness Neck: Supple, Nontender, No lymphadenopathy, No JVD Cardiovascular: Regular rhythm, No murmurs, Normal S1, Normal S2, Tachycardia Respiratory: CTA bilaterally, Chest nontender. Negative for: No distress Abdomen: Soft, Nontender, Nondistended, Normal bowel sounds Rectal: Deferred Back: Nontender, Normal Inspection Extremities: - - There is significant erythema with warmth induration medial left thigh between the incision sites for saphenous vein harvest. There is potentially a palpable cord.. Negative for: Nontender, No edema Skin: Normal color, Rash. Negative for: No rash, Cyanosis, Diaphoresis Neurological: Alert, Oriented x3, Cranial nerves II-XII grossly intact, Normal Strength, Normal Sensation Psychological: Normal affect Diagnostic/Tx/Re-eval Chest X-Ray - ED: 1 View, Read by ED Physician, Normal, Heart, Mediastinum, No Acute Disease, Chronic Changes, - - Interpreted by me at 1150. Impressions Chest X-Ray 12/28/20 11:50 IMPRESSION: Hyperexpanded lungs with chronic interstitial changes but no superimposed acute pulmonary process. Electronically Signed: Jackson Farias MD at 12:01 EDT , Service support , 12/28/20 11:50 Chest 1 View (Portable) [RAD] Stat Laboratory Results 12/28/20 12/28/20 12/28/20 09:35 09:35 09:35 WBC 7.9 RBC 3.73 L Hgb 11.4 L Hct 36.3 L MCV 97.3 H MCH 30.6 MCHC 31.4 L RDW Std Deviation 55.2 H RDW Coeff of Damion 15.6 H Plt Count 152 MPV 8.9 Immature Gran % (Auto) 0.300 Neut % (Auto) 82.9 H Lymph % (Auto) 9.0 L Bourbon % (Auto) 5.7 Eos % (Auto) 1.8 Baso % (Auto) 0.3 Absolute Neuts (auto) 6.6 Absolute Lymphs (auto) 0.71 L Nucleated RBC % 0 PT 13.8 INR 1.1 APTT 31.3 Sodium 138 Potassium 3.7 Chloride 105 Carbon Dioxide 28.0 Anion Gap 5 BUN 11 Creatinine 1.12 Estim Creat Clear Calc 50.04 Est GFR (MDRD) Af Amer 81 Est GFR (MDRD) Non-Af 67 BUN/Creatinine Ratio 9.8 L Glucose 146 H Lactic Acid Calcium 9.2 Total Bilirubin 0.60 AST 15 ALT 21 Alkaline Phosphatase 113 Total Protein 7.1 Albumin 3.9 Globulin 3.2 Albumin/Globulin Ratio 1.2 12/28/20 09:35 WBC RBC Hgb Hct MCV MCH MCHC RDW Std Deviation RDW Coeff of Damion Plt Count MPV Immature Gran % (Auto) Neut % (Auto) Lymph % (Auto) [place] % (Auto) Eos % (Auto) Baso % (Auto) Absolute Neuts (auto) Absolute Lymphs (auto) Nucleated RBC % PT INR APTT Sodium Potassium Chloride Carbon Dioxide Anion Gap BUN Creatinine Estim Creat Clear Calc Est GFR (MDRD) Af Amer Est GFR (MDRD) Non-Af BUN/Creatinine Ratio Glucose Lactic Acid 1.6 Calcium Total Bilirubin AST ALT Alkaline Phosphatase Total Protein Albumin Globulin Albumin/Globulin Ratio - EKG Initial EKG Interpretation: Sinus Rhythm - Sinus rhythm with ventricular rate of 90. RI interval 200 ms. QRS duration 88 ms. QT duration 370 ms. [place] is normal. There is decreased anterior force. There is also mild motion artifact. - Medical Decision Making Differential diagnosis includes septic superficial phlebitis, DVT, cellulitis, cellulitis with abscess with patient being tachypneic need to be concerned for sepsis and pulmonary embolus if venous duplex study reveals a DVT. Sepsis order set was initiated. Venous duplex study was negative for DVT. Admissions Supervisor allowed me to view study, which reveals a large abscess. Patient was consented for I&D and deep sedation with propofol. He denies prior problems with propofol and denies allergy to soy products or egg products. Procedures Procedure(s): 1. Deep sedation. 2. I&D left thigh abscess. Patient was explained risk benefits of deep procedural sedation using propofol. There is no contraindication. Patient received a total of 80 mg of propofol which is 0.9 mg/kg. The area was prepped draped sterile manner. Incision was made. Incision is 3 cm in length. There was brown murky purulent bloody material noted. Blunt dissection was undertaken. The size of the cavity is 8 cm in diameter and 3 cm in depth. Culture was obtained. Blunt dissection was undertaken. Wick was placed. This is a complex laceration. Graph total procedure time for deep sedation 6 minutes ED Disposition - Plan for ED Patient: Disposition: [facility] Care [facility] Diagnosis: Abscess or cellulitis of thigh, Sepsis, Sinus tachycardia seen on cardiac exercise specialist Referrals: Douglas Ball Chi, MD [Primary Care Provider] -
[2020-12-28 09:48] LABS: Absolute Lymphocyte Count 0.71 X10^3/uL (0.83-4.51); Absolute Neutrophil Count 6.6 X10^3/uL (2.0-7.7); Basophil# 0.02 X10^3/uL; Basophil% 0.3 % (0-1); Eosinophil# 0.14 X10^3/uL; Eosinophils% 1.8 % (0-5); Hematocrit 36.3 % (40-54); Hemoglobin 11.4 g/dL (13.0-16.5); Lymphocyte # 0.71 X10^3/ul (4.0); Mean Corp Hgb Conc 31.4 g/dL (32-36); Mean Corpuscular Hgb 30.6 pg (27.0-32.0); Mean Corpuscular Volume 97.3 fL (80-94); Mean Platelet Vol. 8.9 fl (6.2-12.0); Monocyte# 0.45 X10^3/uL; Monocyte% 5.7 % (0-10); NRBC Flagged by Analyzer 0 % (0-5); Neutrophil # 6.56 X10^3/uL (2.7-7.7); Neutrophil % 82.9 % (47-70); Platelet Count 152 K/mm3 (150-450); RBC Distribution Width CV 15.6 % (11.6-14.6); RBC Distribution Width SD 55.2 fl (35.1-43.9); Red Blood Count 3.73 M/mm3 (4.6-6.2); White Blood Count 7.9 K/mm3 (4.4-11.0)
[2020-12-28 10:02] LABS: International Normalized Ratio 1.1; Prothrombin Time (Protime)PT. 13.8 SECONDS (11.7-14.9)
[2020-12-28 10:03] LABS: ALB/GLOB Ratio 1.2 RATIO (0.9-2.4); AST(SGOT) 15 U/L (15-37); Alanine Aminotransfer ALT/SGPT 21 U/L (16-61); Albumin, Serum 3.9 g/dL (3.2-5.0); Alkaline Phosphatase 113 U/L (45-117); Anion Gap 5 (5-15); BUN 11 mg/dL (7-18); BUN/Creat Ratio 9.8 RATIO (10-20); Calcium,Total 9.2 mg/dL (8.5-10.1); Chloride 105 mmol/L (98-107); Creatinine, Serum 1.12 mg/dL (0.70-1.30); EST Glomerular Filtration Rate 67 mL/min (>60); Est Glom Filt Rate - Afr Amer 81 mL/min (>60); Estimated Creatinine Clearance 50.04 ml/min; Globulin 3.2 g/dL (2.2-4.2); Glucose 146 mg/dL (74-106); Partial Thromboplast Time 31.3 Seconds (24.1-36.2); Potassium 3.7 mmol/L (3.5-5.1); Protein, Total 7.1 g/dL (6.4-8.2); Sodium Level 138 mmol/L (136-145)
[2020-12-28] MEDS: Propofol 200 MG/20 ML Vial IV BOLUS (10:17)
[2020-12-28] MEDS: Lidocaine 1% (20 ml mdv) 20 ML Vial INFILT (10:18)
[2020-12-28 10:27] LABS: Lactic Acid 1.6 mmol/L (0.4-1.9)
--- NOTE | 2020-12-28 11:50 | RAD_ITS ---
STUDY: X-RAY CHEST REASON FOR EXAM: Male, 80 years old. Worsening shortness of breath TECHNIQUE: Single AP portable view of the chest. COMPARISON: 12/18/2019 FINDINGS: EKG leads overlie the chest The lungs are hyperexpanded with chronic interstitial changes, no superimposed acute pulmonary process. There is no demonstrated pleural abnormality. There are calcifications of the coronary arteries. Normal mediastinum and duane. Normal visualized pulmonary arteries. There is atherosclerotic calcification of the aortic arch with tortuosity. There are diffuse degenerative changes of the visualized thoracic spine. Normal visualized ribs, clavicles, and shoulders. There is no demonstrated abnormality of the visualized soft tissue structures of the upper abdomen. RAD/Chest 1 View (Portable) IMPRESSION: Hyperexpanded lungs with chronic interstitial changes but no superimposed acute pulmonary process. Electronically Signed: Jackson Farias MD at 12:01 EDT , Service support ,
--- NOTE | 2020-12-28 13:09 | HP.PCM_ITS ---
Problem List (1) Abscess or cellulitis of thigh Status: Acute (2) Sepsis Status: Acute (3) Hypertension Status: Chronic Qualifiers: Hypertension type: essential hypertension Qualified Code(s): I10 - Essential (primary) hypertension (4) History of coronary artery bypass surgery Status: Chronic Comment: CABG x2- BLEVINS to LAD; CY/SVG (tandem graft via transverse sinus) to Ramus 11/25/20 @ [facility] by Dr. Antony (5) Atherosclerotic heart disease of [place] coronary artery without angina pectoris Status: Chronic (6) Pulmonary hypertension Status: Chronic (7) NSTEMI (non-ST elevated myocardial infarction) Status: Chronic History of Present Illness Date of Admission: 12/28/20 Chief Complaint: Left thigh discomfort, redness. The patient is a 80 year old M presented to the emergency room because of left thigh discomfort and redness. Patient underwent CABG on early November, at [facility], had saphenous vein harvesting for the CABG and postoperatively, he did very well. He stated that since this past Monday, he started having left thigh dull aching pain, mild pain, 3-4 out of 10 in severity, not radiating, assoc iated with redness of the medial aspect of the left eye and without aggravating or relieving factors. He denies fever or chills. In the emergency department, patient was tachycardic, tachypneic, blood pressure was borderline but improved with IV fluids. He was found to have left thigh abscess with surrounding cellulitis, status post bedside incision and drainage. His routine blood work was remarkable for hemoglobin of 11.4 g/dL, otherwise unremarkable. Pro time and INR were normal. Venous Doppler of the left lower extremity showed no evidence of DVT. Chest x-ray showed no acute findings. He is being admitted for sepsis secondary to acute left medial thigh abscess with surrounding cellulitis. Past Medical History Past Medical History (Chronic Problems): Chronic Problems (Last Updated 12/28/20 @ 13:[address] Sharath Winston MD) Hypertension (Chronic) History of coronary artery bypass surgery (Chronic ~11/25/20) CABG x2- BLEVINS to LAD; CY/SVG (tandem graft via transverse sinus) to Ramus 11/25/20 @ [facility] [address] Antony Atherosclerotic heart disease of [place] coronary artery without angina pectoris (Chronic) Pulmonary hypertension (Chronic) NSTEMI (non-ST elevated myocardial infarction) (Chronic) Medical History: Medical History (Last Updated 12/28/20 @ 13:[address] Sharath Winston MD) Atherosclerotic heart disease of [place] coronary artery without angina pectoris (Chronic) I25.10 Pulmonary hypertension (Chronic) I27.20 NSTEMI (non-ST elevated myocardial infarction) (Chronic) I21.4 CHF (congestive heart failure) (Inactive) I50.9 Non-rheumatic mitral regurgitation (Inactive) I34.0 Allergies OPIATES Adverse Reaction (Uncoded 12/28/20 09:04) Low blood pressure Home Medications: Ambulatory Orders Medication Instructions Recorded Levothyroxine [Synthroid] 100 mcg PO DAILY 09/14/20 aspirin 81 mg tablet,delayed 81 mg PO DAILY 11/03/20 release acetaminophen 325 mg tablet 650 mg PO Q4H PRN tab 11/30/20 tamsulosin 0.4 mg capsule 0.4 mg PO DAILY 11/30/20 amlodipine 10 mg tablet 10 mg PO DAILY 12/17/20 Atorvastatin Calcium [Lipitor] 40 mg PO QHS 12/28/20 Metoprolol Tartrate 12.5 mg PO BID 12/28/20 Pantoprazole Sodium 40 mg PO DAILY 12/28/20 Surgical History: Surgical History (Last Reviewed 12/17/20 @ 14:30 by Kristin REILLY, PA) History of coronary artery bypass surgery (Chronic) Onset Date: ~11/25/20 Z95.1 CABG x2- BLEVINS to LAD; CY/SVG (tandem graft via transverse sinus) to Ramus 11/25/20 @ [facility] [address] Dr[address] Antony Surgical History: coronary bypass surgery, - Psychiatric History: No pertinent psych hx Lives: Alone Smoking Status: Former smoker Alcohol: None Drugs: None - *Family History Maternal Family History: Family History (Last Reviewed 12/17/20 @ 14:30 by Kristin REILLY, PA) Grandmother CAD (coronary artery disease) Father CAD (coronary artery disease) Review of Systems Constitutional: Denies: Anorexia, Chills, Fever, Weakness Eyes: Denies: Blurred vision, Double vision, Drainage, Redness HEENT: Denies: Difficulty Hearing, Ear Pain, Eye Pain, Nasal Congestion, Sore Throat Cardiovascular: Denies: Chest Pain, Chest Pressure, Chest Tightness, Edema, Palpitations, Syncope Respiratory: Denies: Cough, Pleuritic Pain, Sputum production, Wheezing Gastrointestinal: Denies: Abdominal Pain, Constipation, Diarrhea, Nausea, Vomiting Genitourinary: Denies: Dysuria, Frequency, Hematuria Musculoskeletal: Reports: - - Thigh pain.. Denies: Arm Pain, Back Pain, Foot Pain Skin: Denies: Dryness, Rash Neurological: Denies: Balance problems, Double vision, Change in Speech, Headaches, Incoordination, Numbness Psychiatric: Denies: Anxiety, Depression Endocrine: Denies: Change in Body Habitus, Polydipsia, Polyuria VTE Information - Inpt Only VTE Present on Admission: No VTE Mechan Device Prophylaxis: None VTE Pharm Prophylaxis ordered?: Yes Patient Problems: Active and Suspected Problems (Last Updated 12/28/20 @ 13:[address] Sharath Winston MD) Abscess or cellulitis of thigh (Acute) Sepsis (Acute) - Physical Exam Vitals/I&O's: Vital Signs Temp Pulse Resp BP Pulse Ox 98.7 F 92 16 108/60 97 12/28/20 12:44 12/28/20 12:43 12/28/20 12:43 12/28/20 12:43 12/28/20 12:43 Oxygen Flow Rate (L/min) [3] 5 Oxygen Flow Rate (L/min) [2] 2 Oxygen Flow Rate (L/min) 2 Oxygen Delivery Method [3] Nasal Cannula Oxygen Delivery Method [2] Nasal Cannula Oxygen Delivery Method [1 ( Room Air Initial Baseline)] Oxygen Delivery Method Nasal Cannula Weight: 185 lb Body Mass Index (BMI) 28.1 Intake and Output for Last 24 Hours 12/26/20 12/27/20 12/28/20 22:59 23:59 23:59 Intake Total 600 / 600 Balance 600 / 600 General: Alert, Oriented x3, Cooperative, No apparent distress HEENT: Atraumatic, PERRLA, EOMI, Normocephalic Oral: Moist Mucosa, No Gingival or Mucosal Lesions/ Ulcerations Neck: Supple, No JVD, Negative Carotid Bruits, Trachea Midline, Thyroid Normal Size and Texture Lungs: Clear to auscultation, No rhonchi, No wheeze, No rales, Diminished Cardiovascular: Regular rate, Regular Rhythm, Normal S1, Normal S2, No murmurs, PMI Normal Abdomen: Bowel Sounds Present, Soft, Non Tender, Non-Distended, No Hepato- splenomegaly Extremities: No clubbing, No cyanosis, Edema Skin: No rashes, No breakdown, Incision Lymphatic: No Cervical, Supraclavicular, or Inguinal Adenopathy Neurological: Cranial nerves II-XII grossly intact, Motor Exam 5/5 strength throughout Psych/Mental Status: Normal Affect, Appropriate, Alert and oriented to time, place, person, mood and affect Laboratory Results 12/28/20 09:35: WBC 7.9, RBC 3.73 L, Hgb 11.4 L, Hct 36.3 L, MCV 97.3 H, MCH 30.6, MCHC 31.4 L, RDW Std Deviation 55.2 H, RDW Coeff of Damion 15.6 H, Plt Count 152, MPV 8.9, Immature Gran % (Auto) 0.300, Neut % (Auto) 82.9 H, Lymph % (Auto) 9.0 L, [place]rell % (Auto) 5.7, Eos % (Auto) 1.8, Baso % (Auto) 0.3, Absolute Neuts (auto) 6.6, Absolute Lymphs (auto) 0.71 L, Nucleated RBC % 0 12/28/20 09:35: PT 13.8, INR 1.1, APTT 31.3 12/28/20 09:35: Sodium 138, Potassium 3.7, Chloride 105, Carbon Dioxide 28.0, Anion Gap 5, BUN 11, Creatinine 1.12, Estim Creat Clear Calc 50.04, Est GFR (MDRD) Af Amer 81, Est GFR (MDRD) Non-Af 67, BUN/Creatinine Ratio 9.8 L, Glucose 146 H, Calcium 9.2, Total Bilirubin 0.60, AST 15, ALT 21, Alkaline Phosphatase 113, Total Protein 7.1, Albumin 3.9, Globulin 3.2, Albumin/Globulin Ratio 1.2 12/28/20 09:35: Lactic Acid 1.6 Clinical Impression(s) from Imaging Studies Chest X-Ray 12/28/20 11:50 IMPRESSION: Hyperexpanded lungs with chronic interstitial changes but no superimposed acute pulmonary process. Electronically Signed: Jackson Farias MD at 12:01 EDT , Service support , Assessment/Plan All Active Problems (Last Updated 12/28/20 @ 13:[address] Sharath Winston MD) Abscess or cellulitis of thigh (Acute) Sepsis (Acute) This is an 80 years old male patient presented to the emergency room because of left thigh discomfort, redness, found to have sepsis secondary to left thigh abscess with surrounding cellulitis and is being admitted for treatment. #1 acute left medial thigh abscess/cellulitis/sepsis: Status post bedside incision and drainage that was performed by ED physician. Blood and wound cultures done. Currently, patient is afebrile, blood pressure is borderline, and lactic acid was normal. [facility], telemetry monitoring, start IV Unasyn, IV fluids, Tylenol as needed, Zofran as needed, repeat CBC and BMP tomorrow morning, wound care nurse consult, PT OT evaluation and treatment. #2 status post recent CABG: This was done on November 25, 2020, stable. Patient denied any chest pain. Continue aspirin, statins, metoprolol. #3 hypertension: Blood pressure is borderline but improved. Continue metoprolol, hold Norvasc for now. #4 CAD status post CABG: Plan as above, continue home medications, no acute issues. #5 hypothyroidism: Continue levothyroxine. #6 hyperlipidemia: Continue statins. #7 benign prostatic hypertrophy: Continue Flomax. #8 DVT prophylaxis: Subcu Lovenox. This note was generated with [employer] dictation software. It may contain incorrect words, spelling, and punctuation that were not noted in checking the note before signing. Inpatient E&M: [id number] Init Hosp L3
[2020-12-28 13:15] LABS: Bacteria 0 SEEN /hpf (None Seen); Mucous, Urine 0 SEEN /hpf (<or=2+); Red Blood Cells-Urine 0 SEEN /hpf (0-5); White Blood Cells 0 SEEN /hpf (0-5)
[2020-12-28 13:17] LABS: Color, Urine Yellow (Yellow); Glucose, Dipstick Normal (Normal); Ketone-Dipstick Negative (Negative); Leukocyte Esterase-Dipstick 25 /ul (Negative); Nitrite-Dipstick Negative (Negative); Occult Blood-Urine 10 /ul (Negative); Protein-Dipstick Negative (Negative); Specific Gravity, Urine 1.005 (1.002-1.030); Urine Bilirubin Dipstick Negative (Negative); Urine Clarity Clear (Clear); Urine Urobilinogen Normal (Normal)
[2020-12-28 13:24] LABS: Squamous Epithelial Cells - UA 0-5 SEEN /hpf (0-5)
[2020-12-28] MEDS: Lactated Ringers 1,000 ML 75 ML IV (14:00)
--- NOTE | 2020-12-28 16:45 | CHAPLAIN ---
Type of Pastoral Visit _x__ Initial Visit ___ Follow-up Visit ___ On-call Visit ___ General Patient Visit ___ Spiritual Assessment ___ Family Conference ___ Bereavement ___ Rapid Response ___ Code Blue ___ Other (describe below) Pastoral Care Referral From _x__ Patient ___ Family ___ Nurse ___ Physician ___ Strap Maker ___ [place] Worker Helper ___ Other (describe below) Sacrament/Intervention _x__ Active listening ___ Anointing ___ Anabaptism ___ Bereavement ___ Communion _x__ Loretta exploration ___ _x__ Life review _x__ Prayer ___ Reconciliation ___ Sacrament of Sick _x__ Supportive presence ___ Wedding ___ Other (describe below) Pastoral Comments patient gives his details about illness and hospitalizations since August; pt is and expresses strong desire to live longer as I have more that I want to do and my kids need me; pt expresses his loretta world view; pt welcomes presence and prayer
[2020-12-28] MEDS: Acetaminophen 325 MG Tablet 650 MG PO (22:02)
[2020-12-28] MEDS: Metoprolol Tartrate 25 MG Tablet 12.5 MG PO (22:03)
[2020-12-28] MEDS: Atorvastatin Calcium 40 MG Tablet PO (22:03)
[2020-12-29] VITALS (12 sets, daily range): BP systolic 125–145; BP diastolic 60–64; PULSE 84–99; RESP 18; TEMP 36.8–37.3; O2SAT 93–95
[2020-12-29 05:20] LABS: Absolute Lymphocyte Count 1.43 X10^3/uL (0.83-4.51); Absolute Neutrophil Count 7.8 X10^3/uL (2.0-7.7); Basophil# 0.03 X10^3/uL; Basophil% 0.3 % (0-1); Eosinophil# 0.35 X10^3/uL; Eosinophils% 3.3 % (0-5); Hematocrit 35.7 % (40-54); Hemoglobin 11.1 g/dL (13.0-16.5); Lymphocyte # 1.43 X10^3/ul (4.0); Lymphocyte % 13.7 % (19-41); Mean Corp Hgb Conc 31.1 g/dL (32-36); Mean Corpuscular Hgb 30.5 pg (27.0-32.0); Mean Corpuscular Volume 98.1 fL (80-94); Monocyte# 0.81 X10^3/uL; Monocyte% 7.8 % (0-10); NRBC Flagged by Analyzer 0 % (0-5); Neutrophil # 7.79 X10^3/uL (2.7-7.7); Neutrophil % 74.5 % (47-70); Platelet Count 160 K/mm3 (150-450); RBC Distribution Width CV 15.4 % (11.6-14.6); RBC Distribution Width SD 55.1 fl (35.1-43.9); Red Blood Count 3.64 M/mm3 (4.6-6.2); White Blood Count 10.5 K/mm3 (4.4-11.0)
[2020-12-29] MEDS: 0.9% Saline Lock 10 ML Syringe IV ×2 (05:20→21:56)
[2020-12-29] MEDS: Levothyroxine 100 MCG Tablet PO (05:20)
[2020-12-29 05:36] LABS: Anion Gap 5 (5-15); BUN 14 mg/dL (7-18); BUN/Creat Ratio 14.3 RATIO (10-20); Chloride 108 mmol/L (98-107); Creatinine, Serum 0.98 mg/dL (0.70-1.30); EST Glomerular Filtration Rate 78 mL/min (>60); Est Glom Filt Rate - Afr Amer 95 mL/min (>60); Estimated Creatinine Clearance 57.19 ml/min; Glucose 116 mg/dL (74-106); Potassium 3.8 mmol/L (3.5-5.1); Sodium Level 138 mmol/L (136-145)
--- NOTE | 2020-12-29 09:04 | PN_ITS ---
Patient Problems: Active and Suspected Problems (Last Updated 12/28/20 @ 13:[address] Sharath Winston MD) Abscess or cellulitis of thigh (Acute) Sepsis (Acute) Subjective: Chief complaint: Follow-up after admission for left medial thigh abscess/cellulitis with sepsis. Patient seen and examined. No acute events overnight. He complains of discomfort of the left thigh. Denied fever or chills. Wound care nurse opened up the dressing and remove the packing. Still there is significant induration and erythema of the left medial thigh, slightly improved. His vital signs are stable, afebrile. - Physical Exam Vitals/I&O's: Vital Signs Temp Pulse Resp BP Pulse Ox 98.6 F 91 18 139/64 H 95 12/29/20 04:18 12/29/20 04:18 12/29/20 04:18 12/29/20 04:18 12/29/20 07:06 Oxygen Flow Rate (L/min) [3] 5 Oxygen Flow Rate (L/min) [2] 2 Oxygen Flow Rate (L/min) 2 Oxygen Delivery Method [3] Nasal Cannula Oxygen Delivery Method [2] Nasal Cannula Oxygen Delivery Method [1 ( Room Air Initial Baseline)] Oxygen Delivery Method Nasal Cannula Weight: 185 lb 0.014 oz Body Mass Index (BMI) 28.0 Intake and Output for Last 24 Hours 12/27/20 12/28/20 12/29/20 23:59 23:59 23:59 Intake Total 1704 / 1704 1412 / 1412 Output Total 350 / 350 Balance 1354 / 1354 1412 / 1412 General: Alert, Oriented x3, Cooperative, No apparent distress HEENT: Atraumatic, PERRLA, EOMI, Normocephalic Oral: Moist Mucosa, No Gingival or Mucosal Lesions/ Ulcerations Neck: Supple, No JVD, Negative Carotid Bruits, Trachea Midline, Thyroid Normal Size and Texture Lungs: Clear to auscultation, Normal air movement, No rhonchi, No wheeze, No rales, Diminished Cardiovascular: Regular rate, Regular Rhythm, Normal S1, Normal S2, PMI Normal Abdomen: Bowel Sounds Present, Soft, Non Tender, Non-Distended, No Hepato- splenomegaly Extremities: No clubbing, No cyanosis, No edema Skin: No rashes, Incision, - - Left thigh: Erythema and induration on the medial aspect of the left thigh, minimally improved. Incision draining some bloody discharge. Lymphatic: No Cervical, Supraclavicular, or Inguinal Adenopathy Neurological: Cranial nerves II-XII grossly intact, Neuro grossly intact Psych/Mental Status: Normal Affect, Appropriate, Alert and oriented to time, place, person, mood and affect Microbiology Past 72 Hours 12/28/20 12:08 Abs - Leg Gram Stain - Final Laboratory Results 12/28/20 09:35: WBC 7.9, RBC 3.73 L, Hgb 11.4 L, Hct 36.3 L, MCV 97.3 H, MCH 30.6, MCHC 31.4 L, RDW Std Deviation 55.2 H, RDW Coeff of Damion 15.6 H, Plt Count 152, MPV 8.9, Immature Gran % (Auto) 0.300, Neut % (Auto) 82.9 H, Lymph % (Auto) 9.0 L, Barnes % (Auto) 5.7, Eos % (Auto) 1.8, Baso % (Auto) 0.3, Absolute Neuts (auto) 6.6, Absolute Lymphs (auto) 0.71 L, Nucleated RBC % 0 12/28/20 09:35: PT 13.8, INR 1.1, APTT 31.3 12/28/20 09:35: Sodium 138, Potassium 3.7, Chloride 105, Carbon Dioxide 28.0, Anion Gap 5, BUN 11, Creatinine 1.12, Estim Creat Clear Calc 50.04, Est GFR (MDRD) Af Amer 81, Est GFR (MDRD) Non-Af 67, BUN/Creatinine Ratio 9.8 L, Glucose 146 H, Calcium 9.2, Total Bilirubin 0.60, AST 15, ALT 21, Alkaline Phosphatase 113, Total Protein 7.1, Albumin 3.9, Globulin 3.2, Albumin/Globulin Ratio 1.2 12/28/20 09:35: Lactic Acid 1.6 12/28/20 13:07: Urine Color Yellow, Urine Clarity Clear, Urine pH 7.0, Ur Specific [place] 1.005, Urine Protein Negative, Urine Glucose (UA) Normal, Urine Ketones Negative, Urine Occult Blood 10 H, Urine Nitrite Negative, Urine Bilirubin Negative, Urine Urobilinogen Normal, Ur Leukocyte Esterase 25 H, Urine RBC 0 SEEN, Urine WBC 0 SEEN, Ur Squamous Epith Cells 0-5 SEEN, Urine Bacteria 0 SEEN, Urine Mucus 0 SEEN 12/29/20 05:10: WBC 10.5, RBC 3.64 L, Hgb 11.1 L, Hct 35.7 L, MCV 98.1 H, MCH 30.5, MCHC 31.1 L, RDW Std Deviation 55.1 H, RDW Coeff of Damion 15.4 H, Plt Count 160, MPV 9.0, Immature Gran % (Auto) 0.400, Neut % (Auto) 74.5 H, Lymph % (Auto) 13.7 L, Barnes % (Auto) 7.8, Eos % (Auto) 3.3, Baso % (Auto) 0.3, Absolute Neuts (auto) 7.8 H, Absolute Lymphs (auto) 1.43, Nucleated RBC % 0 12/29/20 05:10: Sodium 138, Potassium 3.8, Chloride 108 H, Carbon Dioxide 25.0, Anion Gap 5, BUN 14, Creatinine 0.98, Estim Creat Clear Calc 57.19, Est GFR (MDRD) Af Amer 95, Est GFR (MDRD) Non-Af 78, BUN/Creatinine Ratio 14.3, Glucose 116 H, Calcium 9.0 Current Medications Acetaminophen (Acetaminophen 325 Mg Tablet) 650 mg PO Q6H PRN PRN PRN Reason: Pain Score 1-10/Temp > 100.7 F Last Admin: 12/28/20 22:02 Dose: 650 mg Documented by: Aspirin (Aspirin E.C. 81 Mg Tablet) [facility] Atorvastatin Calcium (Atorvastatin Calcium 40 Mg Tablet) 40 mg PO QHS [facility] Last Admin: 12/28/20 22:03 Dose: 40 mg Documented by: Enoxaparin Sodium (Enoxaparin 40 Mg/0.4 Ml Syringe) 40 mg SC DAILY [facility] Ampicillin Sodium/Sulbactam (Sodium 3 gm/ Sodium Chloride) 112 mls @ 150 mls/hr IV Q8 [facility] Last Infusion: 12/29/20 06:05 Dose: Infused Documented by: Sodium Chloride () 250 mls @ 15 mls/hr IV .[id number] PRN PRN Reason: Saline Flush Sodium Chloride () 250 mls @ 15 mls/hr IV .[id number] PRN PRN Reason: Additional IVPB Infusion Levothyroxine Sodium (Levothyroxine 100 Mcg Tablet) 100 mcg PO DAILY@0600 [facility] Last Admin: 12/29/20 05:20 Dose: 100 mcg Documented by: Metoprolol Tartrate (Metoprolol Tartrate 25 Mg Tablet) 12.5 mg PO BID [facility] Last Admin: 12/28/20 22:03 Dose: 12.5 mg Documented by: Nutritional Formula (Nutritional Supplement (Isaias) Packet) 1 [facility] Last Admin: 12/28/20 17:02 Dose: 1 packet Documented by: Ondansetron HCl (Ondansetron 4 Mg/2 Ml Vial) 4 mg IV Q8H PRN PRN PRN Reason: NAUSEA/VOMITING Pantoprazole Sodium (Pantoprazole Sodium 40 Mg Tablet) 40 mg PO DAILY [facility] Senna/Docusate Sodium (Senna/Docusate Sodium 1 Tablet) 2 tablet PO BID PRN PRN PRN Reason: Constipation Sodium Chloride (0.9% Saline Lock 10 Ml Syringe) 10 - 40 ml IV UD PRN PRN Reason: SALINE FLUSH Last Admin: 12/29/20 05:20 Dose: 10 ml Documented by: Tamsulosin HCl (Tamsulosin Hcl 0.4 Mg Capsule) 0.4 mg PO DAILY [facility] Zolpidem Tartrate (Zolpidem Tartrate 5 Mg Tablet) 5 mg PO QHS PRN PRN PRN Reason: INSOMNIA Medical Necessity - Tobacco Use Smoking Status: Former smoker Assessment/Plan All Active Problems (Last Updated 12/28/20 @ 13:[address] Sharath Winston MD) Abscess or cellulitis of thigh (Acute) Sepsis (Acute) This is an 80 years old male patient presented to the emergency room because of left thigh discomfort, redness, found to have sepsis secondary to left thigh abscess with surrounding cellulitis and is being admitted for treatment. #1 acute left medial thigh abscess/cellulitis/sepsis: Status post bedside incision and drainage that was performed by ED physician on admission. He is on IV Unasyn. His vital signs are stable, afebrile, no leukocytosis. Gram stain of the wound revealed rare gram-positive cocci. Wound culture is pending as well as blood culture. Still there is significant erythema and induration on the left medial thigh. Plan: Continue same treatment, general surgery consult. #2 status post recent CABG: This was done on November 25, 2020, stable. Patient denied any chest pain. Continue aspirin, statins, metoprolol. #3 hypertension: Blood pressure is stabilized. Continue metoprolol, resume Norvasc. #4 CAD status post CABG: Plan as above, continue aspirin, statins, metoprolol. #5 hypothyroidism: Stable, continue levothyroxine. #6 hyperlipidemia: Continue statins. #7 benign prostatic hypertrophy: Continue Flomax. #8 DVT prophylaxis: Subcu Lovenox. This note was generated with [employer] dictation software. It may contain incorrect words, spelling, and punctuation that were not noted in checking the note before signing. Inpatient E&M: [id number] Subs Hosp L2
--- NOTE | 2020-12-29 09:09 | CASEMGMT ---
Palliative screening tool completed at this time due to LACE/Strata 3. Patient meets criteria at this time. Hospitalist notified, no referral per hospitalist.
--- NOTE | 2020-12-29 09:13 | NURSING ---
wound photo: left medial thigh
[2020-12-29] MEDS: Tamsulosin HCl 0.4 MG Capsule PO (09:19)
[2020-12-29] MEDS: Metoprolol Tartrate 25 MG Tablet 12.5 MG PO ×2 (09:19→22:00)
[2020-12-29] MEDS: Enoxaparin 40 MG/0.4 ML Syringe SC (09:20)
[2020-12-29] MEDS: Pantoprazole Sodium 40 MG Tablet PO (09:20)
[2020-12-29] MEDS: Aspirin E.C. 81 MG Tablet PO (09:20)
[2020-12-29] MEDS: amLODIPine 10 MG Tablet PO (09:32)
--- NOTE | 2020-12-29 10:00 | CASEMGMT ---
RN TRISTEN Face to Face with patient for initial transition planning/care coordination assessment. RN CM introduced self and role at [facility]. Patient lying in bed, alert and oriented. Patient willing to participate in assessment and is able to answer all questions appropriately. Care providers, pharmacy, and demographics verified. Patient wishes to discharge home, denies need for home health at this time. Patient states he has no further needs or concerns at this time. CM to follow for discharge planning needs that may arise. PCP: Quinn Specialists: Antoinette regulatory submissions specialist Preferred Pharmacy: [facility] Insurance: [employer] Prescription Benefit: yes Living Will/HPOA: none LNOK: daughter Living Arrangements: Patient lives with daughter in a 3 story home with bed and bath on first floor. Ramp to enter the home. Patient states he is independent at home. Transportation: self/daughter DME/HHC: Patient states she has shower chair, BSC, raised toilet, grab bars, walker, and rollator. Patient denies previous HHC. Patient states he can do his own dressing changes. Disposition Plan: Patient to discharge home with family support and follow-up plans in place. Nadiya THEODORE, RN, CM
--- NOTE | 2020-12-29 10:16 | PCM.CONS.GEN ---
Problem List (1) Abscess or cellulitis of thigh Status: Acute Reason for Consult Date of Consultation: 12/29/20 Reason for Consultation: Left inner thigh abscess History of Present Illness: The patient is a 80 year old M who presented with 1 week history of palpable lump on the left inner thigh. Patient stated he had a lump near his harvest graft area. He stated he did not think much of it. He stated over the weekend the lump in creased in size. From Monday to Monday, the lump had tripled in size and he noted redness extending down towards the knee, which is what brought him into the ED. Patient noted left lower extremity was used at the beginning of November for harvesting a vein for double bypass surgery. Patient had double bypass surgery in [place] on 11/25. He has not followed up with the cardiac surgeon. He was evaluated by the [facility] on 12/17. No concerns or healing issues were expressed at that time. Patient states he takes an 81 mg aspirin for blood thinner. In the ED, patient was placed under sedation. He underwent an incision and drainage of the abscessed area. Murky brown purulent material was expressed. Patient was admitted for IV antibiotics and ongoing medical management. Today his WBC 10.5. He has had 24 hours of IV antibiotics, currently on Unasyn. Microbiology preliminary is showing gram positive cocci. He notes pain with deep palpation especially near the open wound. He denies fever. He denies chest pain or shortness of breath. He is unsure if he notices a change in redness. He knows it is not getting any worse. Past Medical History Past Medical History (Chronic Problems): Chronic Problems (Last Reviewed 12/29/20 @ 10:30 by Rae REILLY, PA-C) Hypertension (Chronic) History of coronary artery bypass surgery (Chronic ~11/25/20) CABG x2- BLEVINS to LAD; CY/SVG (tandem graft via transverse sinus) to Ramus 11/25/20 @ [facility] by Dr. Antony Atherosclerotic heart disease of [place] coronary artery without angina pectoris (Chronic) Pulmonary hypertension (Chronic) NSTEMI (non-ST elevated myocardial infarction) (Chronic) Medical History: Medical History (Last Reviewed 12/29/20 @ 10:30 by Rae REILLY, PA-C) Atherosclerotic heart disease of [place] coronary artery without angina pectoris (Chronic) I25.10 Pulmonary hypertension (Chronic) I27.20 NSTEMI (non-ST elevated myocardial infarction) (Chronic) I21.4 CHF (congestive heart failure) (Inactive) I50.9 Non-rheumatic mitral regurgitation (Inactive) I34.0 Allergies OPIATES Adverse Reaction (Uncoded 12/28/20 09:04) Low blood pressure Home Medications: Ambulatory Orders Medication Instructions Recorded Levothyroxine [Synthroid] 100 mcg PO DAILY 09/14/20 aspirin 81 mg tablet,delayed 81 mg PO DAILY 11/03/20 release acetaminophen 325 mg tablet 325 - 650 mg PO Q4H PRN tab 11/30/20 tamsulosin 0.4 mg capsule 0.4 mg PO DAILY 11/30/20 amlodipine 10 mg tablet 10 mg PO DAILY 12/17/20 Acetaminophen/Diphenhydramine 1 tab PO QHS 12/28/20 [Tylenol Pm Ex-Strength Caplet] Atorvastatin Calcium [Lipitor] 40 mg PO QHS 12/28/20 DiphenhydrAMINE [Benadryl] 50 mg PO DAILY PRN PRN 12/28/20 Ibuprofen 400 mg PO DAILY PRN 12/28/20 Metoprolol Tartrate 12.5 mg PO BID 12/28/20 Pantoprazole Sodium 40 mg PO DAILY 12/28/20 Surgical History: Surgical History (Last Reviewed 12/29/20 @ 10:30 by Rae REILLY, PA-C) History of coronary artery bypass surgery (Chronic) Onset Date: ~11/25/20 Z95.1 CABG x2- BLEVINS to LAD; CY/SVG (tandem graft via transverse sinus) to Ramus 11/25/20 @ [facility] by Dr. Antony Surgical History: coronary bypass surgery Psychiatric History: No pertinent psych hx Lives: Alone Smoking Status: Former smoker Alcohol: None Drugs: None - *Family History Maternal Family History: Family History (Last Reviewed 12/17/20 @ 14:30 by Kristin REILLY, PA) Grandmother CAD (coronary artery disease) Father CAD (coronary artery disease) History Items: No pertinent history Review of Systems Constitutional: Denies: Chills, Fever, Weight Change HEENT: Denies: Head Aches, Sinus Congestion, Sinus Drainage Cardiovascular: Denies: Chest Pain, Palpitations Respiratory: Denies: Cough, Shortness of breath at rest, Sputum production Gastrointestinal: Denies: Abdominal Pain, Nausea, Vomiting Genitourinary: Denies: Dysuria Musculoskeletal: Reports: Leg Pain - left inner thigh Skin: Reports: Wounds - left inner thigh Neurological: Denies: Numbness, Tingling, Focal weakness Psychiatric: Denies: Anxiety, Depression, Homicidal Ideations, Suicidal Ideations Hematologic/ Lymphatic: Denies: Easy Bruising, Easy Bleeding Patient Problems: Active and Suspected Problems (Last Reviewed 12/29/20 @ 10:30 by Rae REILLY, PARonC) Abscess or cellulitis of thigh (Acute) Sepsis (Acute) - Physical Exam Vitals/I&O's: Vital Signs Temp Pulse Resp BP Pulse Ox 98.8 F 98 18 145/64 H 95 12/29/20 09:42 12/29/20 09:42 12/29/20 09:42 12/29/20 09:42 12/29/20 09:42 Oxygen Flow Rate (L/min) [3] 5 Oxygen Flow Rate (L/min) [2] 2 Oxygen Flow Rate (L/min) 2 Oxygen Delivery Method [3] Nasal Cannula Oxygen Delivery Method [2] Nasal Cannula Oxygen Delivery Method [1 ( Room Air Initial Baseline)] Oxygen Delivery Method Room Air Weight: 185 lb 0.014 oz Body Mass Index (BMI) 28.0 Intake and Output for Last 24 Hours 12/27/20 12/28/20 12/29/20 23:59 23:59 23:59 Intake Total 1704 / 1704 1412 / 1412 Output Total 350 / 350 Balance 1354 / 1354 1412 / 1412 General: Alert, Oriented x3, Cooperative HEENT: Atraumatic, PERRLA, EOMI, Normocephalic Neck: Supple, No JVD, Negative Carotid Bruits Lungs: Clear to auscultation, Normal air movement Cardiovascular: Regular rate, No murmurs Abdomen: Bowel Sounds Present, Soft, Non Tender Extremities: No edema, Capillary Refill Less than 3 Seconds Skin: Ulcer/ Wound - left inner thigh open wound with healthy granulation tissue noted. Superior to the open wound with notable induartion. Remaining surrounding area very soft. Faint erythema extending towards the medial aspect of the knee. Dark erythema noted superior to the open wound. Serous bloody fluid draining., - - Pain with deep palpation superior to the wound and surrounding the wound egdes. Otherwise nontender with palpable. Musculoskeletal: No Tenderness to Palpation of Joints or Extremities Neurological: Neuro grossly intact Psych/Mental Status: Normal Affect, Appropriate Microbiology Past 72 Hours 12/28/20 12:08 Abs - Leg Gram Stain - Final Laboratory Results 12/28/20 09:35: Lactic Acid 1.6 12/28/20 13:07: Urine Color Yellow, Urine Clarity Clear, Urine pH 7.0, Ur Specific [place] 1.005, Urine Protein Negative, Urine Glucose (UA) Normal, Urine Ketones Negative, Urine Occult Blood 10 H, Urine Nitrite Negative, Urine Bilirubin Negative, Urine Urobilinogen Normal, Ur Leukocyte Esterase 25 H, Urine RBC 0 SEEN, Urine WBC 0 SEEN, Ur Squamous Epith Cells 0-5 SEEN, Urine Bacteria 0 SEEN, Urine Mucus 0 SEEN 12/29/20 05:10: WBC 10.5, RBC 3.64 L, Hgb 11.1 L, Hct 35.7 L, MCV 98.1 H, MCH 30.5, MCHC 31.1 L, RDW Std Deviation 55.1 H, RDW Coeff of Damion 15.4 H, Plt Count 160, MPV 9.0, Immature Gran % (Auto) 0.400, Neut % (Auto) 74.5 H, Lymph % (Auto) 13.7 L, [place] % (Auto) 7.8, Eos % (Auto) 3.3, Baso % (Auto) 0.3, Absolute Neuts (auto) 7.8 H, Absolute Lymphs (auto) 1.43, Nucleated RBC % 0 12/29/20 05:10: Sodium 138, Potassium 3.8, Chloride 108 H, Carbon Dioxide 25.0, Anion Gap 5, BUN 14, Creatinine 0.98, Estim Creat Clear Calc 57.19, Est GFR (MDRD) Af Amer 95, Est GFR (MDRD) Non-Af 78, BUN/Creatinine Ratio 14.3, Glucose 116 H, Calcium 9.0 Current Medications Acetaminophen (Acetaminophen 325 Mg Tablet) 650 mg PO Q6H PRN PRN PRN Reason: Pain Score 1-10/Temp > 100.7 F Last Admin: 12/28/20 22:02 Dose: 650 mg Documented by: Amlodipine Besylate (Amlodipine 10 Mg Tablet) 10 mg PO DAILY [facility] Last Admin: 12/29/20 09:32 Dose: 10 mg Documented by: Aspirin (Aspirin E.C. 81 Mg Tablet) 81 mg PO DAILYCM [facility] Last Admin: 12/29/20 09:20 Dose: 81 mg Documented by: Atorvastatin Calcium (Atorvastatin Calcium 40 Mg Tablet) 40 mg PO QHS [facility] Last Admin: 12/28/20 22:03 Dose: 40 mg Documented by: Enoxaparin Sodium (Enoxaparin 40 Mg/0.4 Ml Syringe) 40 mg SC DAILY [facility] Last Admin: 12/29/20 09:20 Dose: 40 mg Documented by: Ampicillin Sodium/Sulbactam (Sodium 3 gm/ Sodium Chloride) 112 mls @ 150 mls/hr IV Q8 [facility] Last Infusion: 12/29/20 06:05 Dose: Infused Documented by: Sodium Chloride () 250 mls @ 15 mls/hr IV .[id number] PRN PRN Reason: Saline Flush Sodium Chloride () 250 mls @ 15 mls/hr IV .[id number] PRN PRN Reason: Additional IVPB Infusion Levothyroxine Sodium (Levothyroxine 100 Mcg Tablet) 100 mcg PO DAILY@0600 [facility] Last Admin: 12/29/20 05:20 Dose: 100 mcg Documented by: Metoprolol Tartrate (Metoprolol Tartrate 25 Mg Tablet) 12.5 mg PO BID [facility] Last Admin: 12/29/20 09:19 Dose: 12.5 mg Documented by: Nutritional Formula (Nutritional Supplement (Isaias) Packet) [facility] Last Admin: 12/29/20 09:20 Dose: 1 packet Documented by: Ondansetron HCl (Ondansetron 4 Mg/2 Ml Vial) 4 mg IV Q8H PRN PRN PRN Reason: NAUSEA/VOMITING Pantoprazole Sodium (Pantoprazole Sodium 40 Mg Tablet) 40 mg PO DAILY [facility] Last Admin: 12/29/20 09:20 Dose: 40 mg Documented by: Senna/Docusate Sodium (Senna/Docusate Sodium 1 Tablet) 2 tablet PO BID PRN PRN PRN Reason: Constipation Sodium Chloride (0.9% Saline Lock 10 Ml Syringe) 10 - 40 ml IV UD PRN PRN Reason: SALINE FLUSH Last Admin: 12/29/20 05:20 Dose: 10 ml Documented by: Tamsulosin HCl (Tamsulosin Hcl 0.4 Mg Capsule) 0.4 mg PO DAILY [facility] Last Admin: 12/29/20 09:19 Dose: 0.4 mg Documented by: Zolpidem Tartrate (Zolpidem Tartrate 5 Mg Tablet) 5 mg PO QHS PRN PRN PRN Reason: INSOMNIA Assessment/Plan All Active Problems (Last Reviewed 12/29/20 @ 10:30 by Rae REILLY PAMartita) Abscess or cellulitis of thigh (Acute) Sepsis (Acute) I have been consulted in conjunction with Dr. Pearce. Impression: Left medial thigh abscess. S/p I&D in the ED. Erythema seems to be fading. Continue induration superior near the open wound. I would anticipate this to continue to improve over the next few days. Plan: Discussed patient with Dr. Pearce. Recommend continued IV antibiotics. At this time, I do not feel the area needs to be opened further. Will continue to observe the area. If it becomes worse, the decision will be made to increase the incision and debridement will take place. The patient has had the opportunity to ask and have questions answered. Patient verbally understands and agrees with the plan. Patient would rather not have the incision extended or another procedure if at all possible. Thank you for allowing us to participate in this patient's care. Office Visits / Consults: [id number] IP Consult L3
[2020-12-29] MEDS: Atorvastatin Calcium 40 MG Tablet PO (22:00)
[2020-12-30] VITALS (14 sets, daily range): BP systolic 117–137; BP diastolic 63–72; PULSE 87–107; RESP 17–18; TEMP 36.7–37.1; O2SAT 92–97
[2020-12-30] MEDS: 0.9% Saline Lock 10 ML Syringe IV ×5 (06:11→23:18)
[2020-12-30] MEDS: Levothyroxine 100 MCG Tablet PO (06:12)
--- NOTE | 2020-12-30 07:35 | PCM.PN.SRG ---
Patient Problems: Active and Suspected Problems (Last Reviewed 12/29/20 @ 10:30 by Rae REILLY, PARonC) Abscess or cellulitis of thigh (Acute) Sepsis (Acute) Subjective: Patient reports no pain in the area - Physical Exam Vitals/I&O's: Vital Signs Temp Pulse Resp BP Pulse Ox 98.7 F 98 18 136/65 H 95 12/30/20 04:04 12/30/20 06:19 12/30/20 04:04 12/30/20 04:04 12/30/20 04:04 Oxygen Flow Rate (L/min) [3] 5 Oxygen Flow Rate (L/min) [2] 2 Oxygen Flow Rate (L/min) 2 Oxygen Delivery Method [3] Nasal Cannula Oxygen Delivery Method [2] Nasal Cannula Oxygen Delivery Method [1 ( Room Air Initial Baseline)] Oxygen Delivery Method Room Air Weight: 185 lb 0.014 oz Body Mass Index (BMI) 28.0 Intake and Output for Last 24 Hours 12/28/20 12/29/20 12/30/20 23:59 23:59 23:59 Intake Total 1704 / 1704 2186 / 2186 Output Total 350 / 350 Balance 1354 / 1354 2186 / 2186 General: Alert, Oriented x3 Lungs: Normal air movement Abdomen: Soft, Non Tender, Non-Distended Extremities: - - Left thigh with erythema but less swelling and no purulent discharge Microbiology Past 72 Hours 12/28/20 12:08 Abs - Leg Gram Stain - Final 12/28/20 12:08 Abs - Leg Wound Culture - Preliminary Gram Positive Cocci 12/28/20 12:08 Abs - Leg Anaerobic Culture - Preliminary Checking for anaerobes, further studies to follow. 12/28/20 10:14 Blood Culture (Wb) - Anticubital Right Blood Culture - Preliminary No growth in 48 hours. 12/28/20 09:35 Blood Culture (Wb) - Anticubital Left Blood Culture - Preliminary No growth in 48 hours. Current Medications Acetaminophen (Acetaminophen 325 Mg Tablet) 650 mg PO Q6H PRN PRN PRN Reason: Pain Score 1-10/Temp > 100.7 F Last Admin: 12/28/20 22:02 Dose: 650 mg Documented by: Amlodipine Besylate (Amlodipine 10 Mg Tablet) 10 mg PO DAILY [facility] Last Admin: 12/29/20 09:32 Dose: 10 mg Documented by: Aspirin (Aspirin E.C. 81 Mg Tablet) 81 mg PO DAILYCM [facility] Last Admin: 12/29/20 09:20 Dose: 81 mg Documented by: Atorvastatin Calcium (Atorvastatin Calcium 40 Mg Tablet) 40 mg PO QHS [facility] Last Admin: 12/29/20 22:00 Dose: 40 mg Documented by: Enoxaparin Sodium (Enoxaparin 40 Mg/0.4 Ml Syringe) 40 mg SC DAILY [facility] Last Admin: 12/29/20 09:20 Dose: 40 mg Documented by: Ampicillin Sodium/Sulbactam (Sodium 3 gm/ Sodium Chloride) 112 mls @ 150 mls/hr IV Q8 [facility] Last Admin: 12/30/20 06:11 Dose: 150 mls/hr Documented by: Sodium Chloride () 250 mls @ 15 mls/hr IV .[id number] PRN PRN Reason: Saline Flush Sodium Chloride () 250 mls @ 15 mls/hr IV .[id number] PRN PRN Reason: Additional IVPB Infusion Levothyroxine Sodium (Levothyroxine 100 Mcg Tablet) 100 mcg PO DAILY@0600 [facility] Last Admin: 12/30/20 06:12 Dose: 100 mcg Documented by: Metoprolol Tartrate (Metoprolol Tartrate 25 Mg Tablet) 12.5 mg PO BID [facility] Last Admin: 12/29/20 22:00 Dose: 12.5 mg Documented by: Nutritional Formula ([facility]utritional Supp[facility] (Isaias) Packet) [facility] Last Admin: 12/29/20 16:44 Dose: 1 packet Documented by: Ondansetron HCl (Ondansetron 4 Mg/2 Ml Vial) 4 mg IV Q8H PRN PRN PRN Reason: NAUSEA/VOMITING Pantoprazole Sodium (Pantoprazole Sodium 40 Mg Tablet) 40 mg PO DAILY [facility] Last Admin: 12/29/20 09:20 Dose: 40 mg Documented by: Senna/Docusate Sodium (Senna/Docusate Sodium 1 Tablet) 2 tablet PO BID PRN PRN PRN Reason: Constipation Sodium Chloride (0.9% Saline Lock 10 Ml Syringe) 10 - 40 ml IV UD PRN PRN Reason: SALINE FLUSH Last Admin: 12/30/20 06:11 Dose: 10 ml Documented by: Tamsulosin HCl (Tamsulosin Hcl 0.4 Mg Capsule) 0.4 mg PO DAILY [facility] Last Admin: 12/29/20 09:19 Dose: 0.4 mg Documented by: Zolpidem Tartrate (Zolpidem Tartrate 5 Mg Tablet) 5 mg PO QHS PRN PRN PRN Reason: INSOMNIA Medical Necessity - Tobacco Use Smoking Status: Former smoker Assessment/Plan All Active Problems (Last Reviewed 12/29/20 @ 10:30 by Rae REILLY, PARonC) Abscess or cellulitis of thigh (Acute) Sepsis (Acute) 80-year-old male with left thigh infection 1. I examined the patient this morning and his dressings appears serosanguineous. The area of erythema seems unchanged since yesterday but it is much softer and is less tender to the touch. There is no purulent discharge. At this time I do not feel any fluctuance that needs further drainage I would recommend continuing dressing changes as well as IV antibiotics for another 24-48 hours. Star Pearce MD Pager: [facility] [address] [place] [address] [address] [place] [address] Office:
[2020-12-30] MEDS: Aspirin E.C. 81 MG Tablet PO (08:26)
--- NOTE | 2020-12-30 08:34 | PN_ITS ---
Patient Problems: Active and Suspected Problems (Last Reviewed 12/29/20 @ 10:30 by Rae REILLY, PAMartita) Abscess or cellulitis of thigh (Acute) Sepsis (Acute) Subjective: Chief complaint: Follow-up after admission for left medial thigh abscess/cellulitis with sepsis. Patient seen and examined. No acute events overnight. Pain on the left thigh is getting better. No other complaints. He has been afebrile, other vitals are stable. - Physical Exam Vitals/I&O's: Vital Signs Temp Pulse Resp BP Pulse Ox 98.7 F 93 18 136/65 H 92 12/30/20 04:04 12/30/20 07:55 12/30/20 04:04 12/30/20 04:04 12/30/20 07:35 Oxygen Flow Rate (L/min) [3] 5 Oxygen Flow Rate (L/min) [2] 2 Oxygen Flow Rate (L/min) 2 Oxygen Delivery Method [3] Nasal Cannula Oxygen Delivery Method [2] Nasal Cannula Oxygen Delivery Method [1 ( Room Air Initial Baseline)] Oxygen Delivery Method Nasal Cannula Weight: 185 lb 0.014 oz Body Mass Index (BMI) 28.0 Intake and Output for Last 24 Hours 12/28/20 12/29/20 12/30/20 23:59 23:59 23:59 Intake Total 1704 / 1704 2186 / 2186 Output Total 350 / 350 Balance 1354 / 1354 2186 / 2186 General: Alert, Oriented x3, Cooperative, No apparent distress HEENT: Atraumatic, PERRLA, EOMI, Normocephalic Oral: Moist Mucosa, No Gingival or Mucosal Lesions/ Ulcerations Neck: Supple, No JVD, Negative Carotid Bruits, Trachea Midline, Thyroid Normal Size and Texture Lungs: Clear to auscultation, No rhonchi, No wheeze, No rales, Diminished Cardiovascular: Regular rate, Regular Rhythm, Normal S1, Normal S2, No murmurs Abdomen: Bowel Sounds Present, Soft, Non Tender, Non-Distended, No Hepato- splenomegaly Extremities: No clubbing, No cyanosis, No edema Skin: No rashes, Incision, - - Left thigh: Erythema and swelling of the left medial thigh is almost the same as yesterday, still indurated but feels more softer in some areas, less tender. Lymphatic: No Cervical, Supraclavicular, or Inguinal Adenopathy Neurological: Cranial nerves II-XII grossly intact, Neuro grossly intact Psych/Mental Status: Normal Affect, Appropriate, Alert and oriented to time, place, person, mood and affect Microbiology Past 72 Hours 12/28/20 12:08 Abs - Leg Gram Stain - Final 12/28/20 12:08 Abs - Leg Wound Culture - Final Staphylococcus lugdunensis 12/28/20 12:08 Abs - Leg Anaerobic Culture - Preliminary Checking for anaerobes, further studies to follow. 12/28/20 10:14 Blood Culture (Wb) - Anticubital Right Blood Culture - Preliminary No growth in 48 hours. 12/28/20 09:35 Blood Culture (Wb) - Anticubital Left Blood Culture - Preliminary No growth in 48 hours. Current Medications Acetaminophen (Acetaminophen 325 Mg Tablet) 650 mg PO Q6H PRN PRN PRN Reason: Pain Score 1-10/Temp > 100.7 F Last Admin: 12/28/20 22:02 Dose: 650 mg Documented by: Amlodipine Besylate (Amlodipine 10 Mg Tablet) 10 mg PO DAILY [facility] Last Admin: 12/29/20 09:32 Dose: 10 mg Documented by: Aspirin ([facility]in E.C. 81 Mg [facility]t) [facility] Last Admin: 12/29/20 09:20 Dose: 81 mg Documented by: Atorvastatin Calcium (Atorvastatin Calcium 40 Mg Tablet) 40 mg PO QHS [facility] Last Admin: 12/29/20 22:00 Dose: 40 mg Documented by: Enoxaparin Sodium (Enoxaparin 40 Mg/0.4 Ml Syringe) 40 mg SC DAILY [facility] Last Admin: 12/29/20 09:20 Dose: 40 mg Documented by: Ampicillin Sodium/Sulbactam (Sodium 3 gm/ Sodium Chloride) 112 mls @ 150 mls/hr IV Q8 [facility] Last Admin: 12/30/20 06:11 Dose: 150 mls/hr Documented by: Sodium Chloride () 250 mls @ 15 mls/hr IV .[id number] PRN PRN Reason: Saline Flush Sodium Chloride () 250 mls @ 15 mls/hr IV .[id number] PRN PRN Reason: Additional IVPB Infusion Levothyroxine Sodium (Levothyroxine 100 Mcg Tablet) 100 mcg PO DAILY@0600 [facility] Last Admin: 12/30/20 06:12 Dose: 100 mcg Documented by: Metoprolol Tartrate (Metoprolol Tartrate 25 Mg Tablet) 12.5 mg PO BID [facility] Last Admin: 12/29/20 22:00 Dose: 12.5 mg Documented by: Nutritional Formula (Nutritional Supplement (Isaias) Packet) 1 packet PO BIDCM [facility] Last Admin: 12/29/20 16:44 Dose: 1 packet Documented by: Ondansetron HCl (Ondansetron 4 Mg/2 Ml Vial) 4 mg IV Q8H PRN PRN PRN Reason: NAUSEA/VOMITING Pantoprazole Sodium (Pantoprazole Sodium 40 Mg Tablet) 40 mg PO DAILY [facility] Last Admin: 12/29/20 09:20 Dose: 40 mg Documented by: Senna/Docusate Sodium (Senna/Docusate Sodium 1 Tablet) 2 tablet PO BID PRN PRN PRN Reason: Constipation Sodium Chloride (0.9% Saline Lock 10 Ml Syringe) 10 - 40 ml IV UD PRN PRN Reason: SALINE FLUSH Last Admin: 12/30/20 06:11 Dose: 10 ml Documented by: Tamsulosin HCl (Tamsulosin Hcl 0.4 Mg Capsule) 0.4 mg PO DAILY [facility] Last Admin: 12/29/20 09:19 Dose: 0.4 mg Documented by: Zolpidem Tartrate (Zolpidem Tartrate 5 Mg Tablet) 5 mg PO QHS PRN PRN PRN Reason: INSOMNIA Medical Necessity - Tobacco Use Smoking Status: Former smoker Assessment/Plan All Active Problems (Last Reviewed 12/29/20 @ 10:30 by Rae REILLY, PA-C) Abscess or cellulitis of thigh (Acute) Sepsis (Acute) This is an 80 years old male patient presented to the emergency room because of left thigh discomfort, redness, found to have sepsis secondary to left thigh abscess with surrounding cellulitis and is being admitted for treatment. #1 acute left medial thigh abscess/cellulitis/sepsis: Status post bedside incision and drainage that was performed by ED physician on admission. Remained on IV Unasyn. His vital signs are stable, afebrile, no leukocytosis. Erythema on the left thigh still the same but induration is softer than yesterday. Wound culture revealed Staphylococcus Lugdunesis.blood culture showed no growth in 48 hours. General surgery on the case, no plan for further incision or drainage. Plan to continue same treatment, possible DC home tomorrow. #2 status post recent CABG: This was done on November 25, 2020, stable. Patient denied any chest pain. Continue aspirin, statins, metoprolol. #3 hypertension: Blood pressure stable. Continue metoprolol and Norvasc. #4 CAD status post CABG: Plan as above, continue aspirin, statins, metoprolol. #5 hypothyroidism: Stable, continue levothyroxine. #6 hyperlipidemia: Continue statins. #7 benign prostatic hypertrophy: Continue Flomax. #8 DVT prophylaxis: Subcu Lovenox. This note was generated with [employer] dictation software. It may contain incorrect words, spelling, and punctuation that were not noted in checking the note before signing. Inpatient E&M: 55137 Subs Hosp L2
[2020-12-30] MEDS: Metoprolol Tartrate 25 MG Tablet 12.5 MG PO ×2 (10:03→21:56)
[2020-12-30] MEDS: amLODIPine 10 MG Tablet PO (10:03)
[2020-12-30] MEDS: Enoxaparin 40 MG/0.4 ML Syringe SC (10:04)
[2020-12-30] MEDS: Tamsulosin HCl 0.4 MG Capsule PO (10:06)
[2020-12-30] MEDS: Lansoprazole 15 MG Capsule.DR 30 MG PO (11:05)
[2020-12-30] MEDS: Atorvastatin Calcium 40 MG Tablet PO (21:55)
[2020-12-31 02:31] VITALS: BP 136/69; PULSE 93; RESP 17; TEMP 36.6; O2SAT 95
[2020-12-31] MEDS: Senna/Docusate Sodium 1 Tablet 2 TABLET PO (02:40)
[2020-12-31 03:00] VITALS: PULSE 92
[2020-12-31] MEDS: Levothyroxine 100 MCG Tablet PO (05:49)
[2020-12-31] MEDS: 0.9% Saline Lock 10 ML Syringe IV (05:50)
[2020-12-31 07:17] VITALS: O2SAT 93
--- NOTE | 2020-12-31 07:24 | PN.SURG_ITS ---
Patient Problems: Active and Suspected Problems (Last Reviewed 12/29/20 @ 10:30 by Rae REILLY, PAMartita) Abscess or cellulitis of thigh (Acute) Sepsis (Acute) Subjective: Patient is not having any pain in the area - Physical Exam Vitals/I&O's: Vital Signs Temp Pulse Resp BP Pulse Ox 97.9 F 92 17 136/69 H 95 12/31/20 02:31 12/31/20 03:00 12/31/20 02:31 12/31/20 02:31 12/31/20 02:31 Oxygen Flow Rate (L/min) [3] 5 Oxygen Flow Rate (L/min) [2] 2 Oxygen Flow Rate (L/min) 2 Oxygen Delivery Method [3] Nasal Cannula Oxygen Delivery Method [2] Nasal Cannula Oxygen Delivery Method [1 ( Room Air Initial Baseline)] Oxygen Delivery Method Room Air Weight: 185 lb 0.014 oz Body Mass Index (BMI) 28.0 Intake and Output for Last 24 Hours 12/29/20 12/30/20 12/31/20 23:59 23:59 23:59 Intake Total 2186 / 2186 986 / 986 812 / 812 Output Total 500 / 500 Balance 2186 / 2186 986 / 986 312 / 312 General: Alert, Oriented x3 Lungs: Normal air movement Cardiovascular: Regular rate, Regular Rhythm Microbiology Past 72 Hours 12/28/20 12:08 Abs - Leg Gram Stain - Final 12/28/20 12:08 Abs - Leg Wound Culture - Final Staphylococcus lugdunensis 12/28/20 12:08 Abs - Leg Anaerobic Culture - Preliminary Checking for anaerobes, further studies to follow. 12/28/20 10:14 Blood Culture (Wb) - Anticubital Right Blood Culture - Preliminary No growth in 48 hours. 12/28/20 09:35 Blood Culture (Wb) - Anticubital Left Blood Culture - Preliminary No growth in 48 hours. Current Medications Acetaminophen (Acetaminophen 325 Mg Tablet) 650 mg PO Q6H PRN PRN PRN Reason: Pain Score 1-10/Temp > 100.7 F Last Admin: 12/28/20 22:02 Dose: 650 mg Documented by: Amlodipine Besylate (Amlodipine 10 Mg Tablet) 10 mg PO DAILY [facility] Last Admin: 12/30/20 10:03 Dose: 10 mg Documented by: Aspirin ([facility]in 81 Mg Tab.Chew) [facility] Atorvastatin Calcium (Atorvastatin Calcium 40 Mg Tablet) 40 mg PO QHS [facility] Last Admin: 12/30/20 21:55 Dose: 40 mg Documented by: Enoxaparin Sodium (Enoxaparin 40 Mg/0.4 Ml Syringe) 40 mg SC DAILY [facility] Last Admin: 12/30/20 10:04 Dose: 40 mg Documented by: Ampicillin Sodium/Sulbactam (Sodium 3 gm/ Sodium Chloride) 112 mls @ 150 mls/hr IV Q8 [facility] Last Infusion: 12/31/20 06:34 Dose: Infused Documented by: Sodium Chloride () 250 mls @ 15 mls/hr IV .[id number] PRN PRN Reason: Saline Flush Sodium Chloride () 250 mls @ 15 mls/hr IV .[id number] PRN PRN Reason: Additional IVPB Infusion Lansoprazole (Lansoprazole 15 Mg Capsule.Dr) 30 mg PO DAILY [facility] Last Admin: 12/30/20 11:05 Dose: 30 mg Documented by: Levothyroxine Sodium (Levothyroxine 100 Mcg Tablet) 100 mcg PO DAILY@0600 [facility] Last Admin: 12/31/20 05:49 Dose: 100 mcg Documented by: Metoprolol Tartrate (Metoprolol Tartrate 25 Mg Tablet) 12.5 mg PO BID [facility] Last Admin: 12/30/20 21:56 Dose: 12.5 mg Documented by: Nutritional Formula (Nutritional Supplement (Isaias) Packet) [facility] Last Admin: 12/30/20 16:25 Dose: 1 packet Documented by: Ondansetron HCl (Ondansetron 4 Mg/2 Ml Vial) 4 mg IV Q8H PRN PRN PRN Reason: NAUSEA/VOMITING Senna/Docusate Sodium (Senna/Docusate Sodium 1 Tablet) 2 tablet PO BID PRN PRN PRN Reason: Constipation Last Admin: 12/31/20 02:40 Dose: 2 tablet Documented by: Sodium Chloride (0.9% Saline Lock 10 Ml Syringe) 10 - 40 ml IV UD PRN PRN Reason: SALINE FLUSH Last Admin: 12/31/20 05:50 Dose: 10 ml Documented by: Tamsulosin HCl (Tamsulosin Hcl 0.4 Mg Capsule) 0.4 mg PO DAILY [facility] Last Admin: 12/30/20 10:06 Dose: 0.4 mg Documented by: Zolpidem Tartrate (Zolpidem Tartrate 5 Mg Tablet) 5 mg PO QHS PRN PRN PRN Reason: INSOMNIA Medical Necessity - Tobacco Use Smoking Status: Former smoker Assessment/Plan All Active Problems (Last Reviewed 12/29/20 @ 10:30 by Rae REILLY PA-C) Abscess or cellulitis of thigh (Acute) Sepsis (Acute) 80-year-old male with left thigh abscess 1. The patient's erythema seems to be receding. He still has edema of the thigh but this may be due to the removal of his saphenous vein. The patient will have a slow recovery but he does not have any purulence and he seems to be improving. He is okay for discharge on oral antibiotics from my standpoint. Star Pearce MD Pager: [facility] [address] [place] [address], [address] [place] [address] Office:
[2020-12-31 07:31] VITALS: PULSE 94
--- NOTE | 2020-12-31 08:22 | DCINST_ITS ---
- Discharge Diagnoses Current Active Problems: Current Active and Chronic Problems (Last Reviewed 12/29/20 @ 10:30 by Rae REILLY PA-C) Abscess or cellulitis of thigh (Acute) Sepsis (Acute) Hypertension (Chronic) History of coronary artery bypass surgery (Chronic ~11/25/20) CABG x2- BLEVINS to LAD; CY/SVG (tandem graft via transverse sinus) to Ramus 11/25/20 @ [facility] by Dr. 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) Pulmonary hypertension (Chronic) NSTEMI (non-ST elevated myocardial infarction) (Chronic) You will use the following diet at home:: Cardiac Your food should be the consistency of: Regular Discharge Activity: Return to Normal Activity Weight Bearing Status: Weight bearing as tolerated Call your doctor if your incision/area has: Continuous Slow Oozing, Sudden Increased Bleeding, Increased Pain/ Swelling, Increased Redness, Foul Smelling Discharge Call your doctor if you observe: Fever of 101 or Higher, Shortness of breath, Dizziness, Fainting spells, Chest pain, Increased palpitations (irregular heartbeat), Uncontrolled pain Additional Instructions: Follow-up with the wound care center this coming Monday. Allergies/Adverse Reactions: Allergies OPIATES Adverse Reaction (Uncoded 12/28/20 09:04) Low blood pressure Medications to take at Discharge Levothyroxine [Synthroid] 100 mcg PO DAILY 09/14/20 aspirin 81 mg tablet,delayed release 81 mg PO DAILY 11/03/20 acetaminophen 325 mg tablet 325 - 650 mg PO Q4H PRN tab 11/30/20 tamsulosin 0.4 mg capsule 0.4 mg PO DAILY 11/30/20 amlodipine 10 mg tablet 10 mg PO DAILY 12/17/20 Acetaminophen/Diphenhydramine [Tylenol Pm Ex-Strength Caplet] 1 tab PO QHS 12/28/20 Atorvastatin Calcium [Lipitor] 40 mg PO QHS 12/28/20 DiphenhydrAMINE [Benadryl] 50 mg PO DAILY PRN PRN 12/28/20 Ibuprofen 400 mg PO DAILY PRN 12/28/20 Metoprolol Tartrate 12.5 mg PO BID 12/28/20 Pantoprazole Sodium 40 mg PO DAILY 12/28/20 Amox/Clavulanate Tablet [Augmentin Tablet] 875 mg PO Q12H #14 tablet 12/31/20 The following prescriptions were given: Amox/Clavulanate Tablet [Augmentin Tablet] 875 mg PO Q12H #14 tablet Transmission Status: Pending to [id number] Primary Care Physician: Douglas Ball Chi, MD [Primary Care Provider] - Please follow up with your Primary Care Physician in: 1 week. Test Results: Test results from this visit will be discussed in further detail at your follow- up appointment, if applicable.
--- NOTE | 2020-12-31 09:00 | NURSING ---
wound photo: left medial thigh
[2020-12-31 09:44] VITALS: BP 126/58; PULSE 95; RESP 18; TEMP 36.7; O2SAT 95
[2020-12-31 09:50] VITALS: BP 126/58; PULSE 95
[2020-12-31] MEDS: Enoxaparin 40 MG/0.4 ML Syringe SC (09:50)
[2020-12-31] MEDS: Metoprolol Tartrate 25 MG Tablet 12.5 MG PO (09:50)
[2020-12-31] MEDS: Tamsulosin HCl 0.4 MG Capsule PO (09:50)
[2020-12-31] MEDS: Aspirin 81 MG TAB.CHEW PO (09:51)
[2020-12-31] MEDS: Lansoprazole 15 MG Capsule.DR 30 MG PO (09:52)
[2020-12-31] MEDS: amLODIPine 10 MG Tablet PO (09:52)
--- NOTE | 2020-12-31 10:47 | PHA.DC.MC ---
Pharmacy Service has performed discharge medication reconciliation and counseling for this patient. The patient was counseled on the following discharge medications and changes in medications for homegoing were reviewed. 1. AUGMENTIN The Reason for Use, instructions for use, and potential side effects were reviewed for all new medications. The patient's questions regarding all of their medications were answered. The patient was able to verbally demonstrate an understanding of their discharge medications. Home Medications Levothyroxine [Synthroid] 100 mcg PO DAILY 09/14/20 aspirin 81 mg tablet,delayed release 81 mg PO DAILY 11/03/20 acetaminophen 325 mg tablet 325 - 650 mg PO Q4H PRN tab 11/30/20 tamsulosin 0.4 mg capsule 0.4 mg PO DAILY 11/30/20 amlodipine 10 mg tablet 10 mg PO DAILY 12/17/20 Acetaminophen/Diphenhydramine [Tylenol Pm Ex-Strength Caplet] 1 tab PO QHS 12/28/20 Atorvastatin Calcium [Lipitor] 40 mg PO QHS 12/28/20 DiphenhydrAMINE [Benadryl] 50 mg PO DAILY PRN PRN 12/28/20 Ibuprofen 400 mg PO DAILY PRN 12/28/20 Metoprolol Tartrate 12.5 mg PO BID 12/28/20 Pantoprazole Sodium 40 mg PO DAILY 12/28/20 Amox/Clavulanate Tablet [Augmentin Tablet] 875 mg PO Q12H #14 tablet 12/31/20 The patient's discharge medication list was reviewed for discrepancies and discrepancies were resolved.
--- NOTE | 2020-12-31 12:22 | PCM.DC.SUM ---
Discharge Date and Diagnosis - Problem List Patient Problems: Active and Suspected Problems (Last Reviewed 12/29/20 @ 10:30 by Rae REILLY PA-C) Abscess or cellulitis of thigh (Acute) Sepsis (Acute) Date of Admission: 12/28/20 Date of Discharge: 12/31/20 - Primary Discharge Diagnosis Acute Problems: Active Problems (Last Reviewed 12/29/20 @ 10:30 by Rae REILLY PA-C) #1 Staphylococcus Lugdunesis abscess/cellulitis of left thigh, status post incision and drainage. #2 sepsis (Acute). #3 status post recent CABG. - Secondary Discharge Diagnosis Chronic Problems: Chronic Problems (Last Reviewed 12/29/20 @ 10:30 by Rae REILLY PA-C) Hypertension (Chronic) History of coronary artery bypass surgery (Chronic ~11/25/20) CABG x2- BLEVINS to LAD; CY/SVG (tandem graft via transverse sinus) to Ramus 11/25/20 @ [facility] by Dr. Antony Atherosclerotic heart disease of [place] coronary artery without angina pectoris (Chronic) Pulmonary hypertension (Chronic) NSTEMI (non-ST elevated myocardial infarction) (Chronic) Hospital Course and Treatment Imaging Results: Clinical Impression(s) from Imaging Studies Chest X-Ray 12/28/20 11:50 IMPRESSION: Hyperexpanded lungs with chronic interstitial changes but no superimposed acute pulmonary process. 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 Pearce, general surgery. Operations: None Procedures: - - Bedside incision and drainage of the left thigh abscess. Summary of Care Provided: Patient seen and examined on the day of discharge and appeared to be stable to be discharged home. Swelling and erythema of the left thigh has been improving every day. He has been afebrile, other vital signs are stable. The patient is a 80 year old M presented to the emergency room because of left thigh discomfort and redness, found to have left medial thigh cellulitis with abscess complicated by sepsis. Incision and drainage of the left thigh abscess performed by the ER physician at the bedside. Patient was admitted to the floor for IV antibiotics. Patient was started on IV Unasyn. His routine blood work was remarkable for chronic anemia, otherwise normal. He had no leukocytosis and his lactic acid was normal. LFT was unremarkable. Chest x-ray showed no acute findings. Urinalysis showed no evidence of acute cystitis. Patient had recent CABG surgery and this was stable. Blood culture showed no growth in 48 hours. Wound culture revealed Staphylococcus Lugdunesis that was pansensitive. With IV antibiotic therapy, swelling and erythema of the left thigh improved. General surgery consulted and stated that there is no indication for more deep cleaning of the abscess as it has been getting better. Patient discharged home in a stable medical condition, discharged on Augmentin for 7 days to complete total of 10 days of treatment, instructed to follow-up with the wound care center regarding wound dressing, continued on his previous home medications without any changes, recommended follow-up with PCP in 1 week. Patient Problems: Active and Suspected Problems (Last Reviewed 12/29/20 @ 10:30 by Rae REILLY PA-C) Abscess or cellulitis of thigh (Acute) Sepsis (Acute) - Physical Exam Vitals/I&O's: Vital Signs Temp Pulse Resp BP Pulse Ox 98.1 F 95 18 126/58 H 95 12/31/20 09:44 12/31/20 09:50 12/31/20 09:44 12/31/20 09:50 12/31/20 09:44 Oxygen Flow Rate (L/min) [3] 5 Oxygen Flow Rate (L/min) [2] 2 Oxygen Flow Rate (L/min) 2 Oxygen Delivery Method [3] Nasal Cannula Oxygen Delivery Method [2] Nasal Cannula Oxygen Delivery Method [1 ( Room Air Initial Baseline)] Oxygen Delivery Method Room Air Weight: 185 lb 0.014 oz Body Mass Index (BMI) 28.0 Intake and Output for Last 24 Hours 12/29/20 12/30/20 12/31/20 23:59 23:59 23:59 Intake Total 2186 / 2186 986 / 986 812 / 812 Output Total 500 / 500 Balance 2186 / 2186 986 / 986 312 / 312 General: Alert, Oriented x3, Cooperative, No apparent distress HEENT: Atraumatic, PERRLA, EOMI, Normocephalic Oral: Moist Mucosa, No Gingival or Mucosal Lesions/ Ulcerations Neck: Supple, No JVD, Negative Carotid Bruits, Trachea Midline, Thyroid Normal Size and Texture Lungs: Clear to auscultation, No rhonchi, No wheeze, No rales, Diminished Cardiovascular: Regular rate, Regular Rhythm, Normal S1, Normal S2, PMI Normal Abdomen: Bowel Sounds Present, Soft, Non Tender, Non-Distended, No Hepato-splenomegaly Extremities: No clubbing, No cyanosis, No edema Skin: No rashes, No breakdown Lymphatic: No Cervical, Supraclavicular, or Inguinal Adenopathy Neurological: Cranial nerves II-XII grossly intact, Neuro grossly intact Psych/Mental Status: Normal Affect, Appropriate Microbiology Past 72 Hours 12/28/20 12:08 Abs - Leg Gram Stain - Final 12/28/20 12:08 Abs - Leg Wound Culture - Final Staphylococcus lugdunensis 12/28/20 12:08 Abs - Leg Anaerobic Culture - Preliminary Checking for anaerobes, further studies to follow. 12/28/20 10:14 Blood Culture (Wb) - Anticubital Right Blood Culture - Preliminary No growth in 48 hours. 12/28/20 09:35 Blood Culture (Wb) - Anticubital Left Blood Culture - Preliminary No growth in 48 hours. Discharge Activity: Return to Normal Activity Weight Bearing Status: Weight bearing as tolerated Call your doctor if your incision/area has: Continuous Slow Oozing, Sudden Increased Bleeding, Increased Pain/ Swelling, Increased Redness, Foul Smelling Discharge Call your doctor if you observe: Fever of 101 or Higher, Shortness of breath, Dizziness, Fainting spells, Chest pain, Increased palpitations (irregular heartbeat), Uncontrolled pain Home Medications: Medications to take at Discharge Levothyroxine [Synthroid] 100 mcg PO DAILY 09/14/20 aspirin 81 mg tablet,delayed release 81 mg PO DAILY 11/03/20 acetaminophen 325 mg tablet 325 - 650 mg PO Q4H PRN tab 11/30/20 tamsulosin 0.4 mg capsule 0.4 mg PO DAILY 11/30/20 amlodipine 10 mg tablet 10 mg PO DAILY 12/17/20 Acetaminophen/Diphenhydramine [Tylenol Pm Ex-Strength Caplet] 1 tab PO QHS 12/28/20 Atorvastatin Calcium [Lipitor] 40 mg PO QHS 12/28/20 DiphenhydrAMINE [Benadryl] 50 mg PO DAILY PRN PRN 12/28/20 Ibuprofen 400 mg PO DAILY PRN 12/28/20 Metoprolol Tartrate 12.5 mg PO BID 12/28/20 Pantoprazole Sodium 40 mg PO DAILY 12/28/20 Amox/Clavulanate Tablet [Augmentin Tablet] 875 mg PO Q12H #14 tablet 12/31/20 Following Prescriptions Were Given to Patient: Amox/Clavulanate Tablet [Augmentin Tablet] 875 mg PO Q12H #14 tablet Transmission Status: Received by [id number] Primary Care Physician: Douglas Ball Chi, MD [Primary Care Provider] - Please follow up with your Primary Care Physician in: 1 week. Please Follow Up With: Douglas Ball Chi, MD Disposition: Home Minutes spent on discharge:: 32 Patient Condition:: Stable Medical Necessity - Tobacco Use Smoking Status: Former smoker Meaningful Use Info Meaningful Use Diagnoses (Choose all that apply): None applicable Inpatient E&M: 74014 [facility]
--- NOTE | 2021-01-01 14:43 | CASEMGMT ---
WILDER CM DC Call DC DATE: 12/31/20 DC Disposition: Home DC Diagnosis: Abscess or cellulitis of thigh. Intro role of CM to patient via phone. Pt states he is feeling well, did peanut picker his prescription and understands instructions. Pt has follow up appt- reviewed with him. No concerns noted, and no care improvement suggestions were given. Juan THEODORE RN ACM
== END 2020-12-31 10:34 | disposition home or self-care (01) | DRG 856 ==
LOC: ED 12:17 → MS3 13:41
PROVIDERS: Admitting Provider Hospitalist; Emergency Provider Emergency Medicine; PCP Family Medicine Geriatric Medicine; Visit Provider Hospitalist
DX: T81.41XA Infection following a procedure, superficial incisional surgical site, initial encounter (principal); A41.9 Sepsis, unspecified organism; L02.416 Cutaneous abscess of left lower limb; L03.116 Cellulitis of left lower limb; T81.44XA Sepsis following a procedure, initial encounter; B95.7 Other staphylococcus as the cause of diseases classified elsewhere; E03.9 Hypothyroidism, unspecified; E78.5 Hyperlipidemia, unspecified; I25.10 Atherosclerotic heart disease of native coronary artery without angina pectoris; I25.2 Old myocardial infarction; I27.20 Pulmonary hypertension, unspecified; I10 Essential (primary) hypertension; D64.9 Anemia, unspecified; N40.0 Benign prostatic hyperplasia without lower urinary tract symptoms; Z79.82 Long term (current) use of aspirin; Z95.1 Presence of aortocoronary bypass graft; Z79.899 Other long term (current) drug therapy; Z87.891 Personal history of nicotine dependence
CPT/HCPCS: 10060; 71045; 80048; 80053; 81001; 83605; 85025; 85610; 85730; 87040; 87070; 87075; 87077; 87186; 87205; 93005; 93798; 93971; 97162; 97166; 97802; 99251; 99285; J7040; J7050; J7120; A4216; G0463; J0295

== ENCOUNTER → 2021-01-06 09:44 | Outpatient (CLI) | payer MEDICARE, OTHER, SELFPAY ==
[2020-12-23 09:20] VITALS: BMI 29.0
[2021-01-04 10:14] VITALS: BMI 28.2
--- NOTE | 2021-01-06 09:47 | VDLE_ITS ---
Reason For Study: EDEMA LLE Procedure LEFT This is a venous duplex using B-mode, color CFV is compressible, spontaneous, phasic, flow and spectral Doppler. competent, and demonstrates normal Exam performed in department. augmentation. The study was technically limited. FV is compressible, spontaneous, phasic, Due to bandages protecting open wound competent and demonstrates normal (drained 12/28/20) & bandaged from knee to augmentation. ankle. POP V is compressible, spontaneous, phasic, A preliminary report was called and/or faxed competent and demonstrates normal to Dr. Ball. augmentation. T/P Trunk is compressible. Interpretation Summary There is no evidence of left lower extremity deep vein thrombosis. Technically limited examination because of bandaging and open wound left lower extremity from the knee to the ankle Ordering Physician: Douglas Ball Referring Physician: Douglas Ball Chi Performed By: Anel Toussaint, BETSY, RVT
== END ==
PROVIDERS: PCP Family Medicine Geriatric Medicine; Referring Provider Family Medicine Geriatric Medicine; Visit Provider Family Medicine Geriatric Medicine
DX: R60.0 Localized edema (principal)
CPT/HCPCS: 93971

== ENCOUNTER 2021-01-13 09:00 | Outpatient (RCR) | payer MEDICARE, OTHER, SELFPAY ==
[2020-12-23 09:20] VITALS: BMI 29.0
[2020-12-28 14:03] VITALS: BMI 28.0
[2021-01-04 10:14] VITALS: BP 144/83; PULSE 102; RESP 22; TEMP 37; BMI 28.2
--- NOTE | 2021-01-04 11:56 | PCM.WC.HP ---
(1) Open wound of left thigh Status: Acute Code(s): S71.102A - Unspecified open wound, left thigh, initial encounter (2) Abscess or cellulitis of thigh Status: Acute (3) History of coronary artery bypass surgery Status: Chronic Code(s): Z95.1 - Presence of aortocoronary bypass graft Comment: CABG x2- BLEVINS to LAD; CY/SVG (tandem graft via transverse sinus) to Ramus 11/25/20 @ [facility] [address] Dr[address] Antony (4) Hypertension Status: Chronic Qualifiers: Hypertension type: essential hypertension Qualified Code(s): I10 - Essential (primary) hypertension Code(s): I10 - Essential (primary) hypertension (5) Pulmonary hypertension Status: Chronic Code(s): I27.20 - Pulmonary hypertension, unspecified History of Present Illness Date of Service: 01/04/21 Chief Complaint: Left medial thigh wound after I&D in ED History of Wound: Patient presented to the ED on 12/28/20 with his left thigh being red, swollen, painful and warm to palpation. He has a history of CABG x 2 on 11/25/20 at [facility], after a NSTEMI, where they obtained a saphenous vein graft from left thigh. DVT was ruled out but the ultrasound revealed a large abscess which and I&D was performed in the ED under sedation. Wound culture from I&D was positive for Staphylococcus lugdunensis which he has been treated with Augmentin. Wound Care - He has been placing Nu gauze into the wound since he was discharged on 12/31/20. Will start Aquacel-Ag dressing placed in the wound daily and covered with gauze. Wash wound with soap and water daily. Today he denies fever. He states his appetite is good. Past Medical History Past Medical History: Chronic Problems (Last Reviewed 12/29/20 @ 10:30 by Rae REILLY PA-C) Hypertension (Chronic) History of coronary artery bypass surgery (Chronic ~11/25/20) CABG x2- BLEVINS to LAD; CY/SVG (tandem graft via transverse sinus) to Ramus 11/25/20 @ [facility] [address] Antony Atherosclerotic heart disease of [place] coronary artery without angina pectoris (Chronic) Pulmonary hypertension (Chronic) NSTEMI (non-ST elevated myocardial infarction) (Chronic) Surgical History: coronary bypass surgery Allergies/Adverse Reactions: Allergies OPIATES Adverse Reaction (Uncoded 12/28/20 09:04) Low blood pressure Home Medications: Ambulatory Orders Medication Instructions Recorded Levothyroxine [Synthroid] 100 mcg PO DAILY 09/14/20 aspirin 81 mg tablet,delayed 81 mg PO DAILY 11/03/20 release acetaminophen 325 mg tablet 325 - 650 mg PO Q4H PRN tab 11/30/20 tamsulosin 0.4 mg capsule 0.4 mg PO DAILY 11/30/20 amlodipine 10 mg tablet 10 mg PO DAILY 12/17/20 Atorvastatin Calcium [Lipitor] 40 mg PO QHS 12/28/20 DiphenhydrAMINE [Benadryl] 50 mg PO DAILY PRN PRN 12/28/20 Metoprolol Tartrate 12.5 mg PO BID 12/28/20 Pantoprazole Sodium 40 mg PO DAILY 12/28/20 Amox/Clavulanate Tablet [Augmentin 875 mg PO Q12H #14 tablet 12/31/20 Tablet] - Family History Maternal Family History: Family History (Last Reviewed 12/17/20 @ 14:30 by Kristin REILLY, PA) Grandmother CAD (coronary artery disease) Father CAD (coronary artery disease) No pertinent history Smoking Status: Former smoker Review of Systems Constitutional: Denies: Chills, Fever, Weight Change Eyes: Denies: Pain, Vision Change HEENT: Reports: Difficulty Swallowing. Denies: Difficulty Hearing, Sinus Congestion Cardiovascular: Denies: Chest Pain, Palpitations Respiratory: Denies: Cough, Shortness of Breath Gastrointestinal: Denies: Diarrhea, Nausea, Vomiting Genitourinary: Denies: Dysuria, Hematuria Musculoskeletal: Denies: Joint Pain, Joint stiffness Skin: Reports: Wounds - Left medial thigh wound from I&D Neurological: Denies: Balance problems, Change in Speech Endocrine: Denies: Heat/ Cold Intolerance, Polydipsia, Polyuria - Physical Exam Vital Signs Temp Pulse Resp BP 98.6 F 102 H 22 H 144/83 H 01/04/21 10:14 01/04/21 10:14 01/04/21 10:14 01/04/21 10:14 General: Alert, Oriented x3, Cooperative HEENT: Atraumatic, Normocephalic Oral: Moist Mucosa Lungs: Clear to auscultation, Normal air movement Cardiovascular: Regular rate, Regular Rhythm Abdomen: Bowel Sounds Present, Soft, Non Tender Extremities: Capillary Refill Less than 3 Seconds, Edema - Left lower extremity, Peripheral Pulses Normal Skin: Ulcer/ Wound - Left medial thigh wound from I&D is clean and pink. Surrounding area of the wound is firm upside down teardrop shape. Area of marked with pen and dated. Approximately 12.5 x 7.5 cm, Incision - Midline chest incision from CABG is healed Wound Measurements and Assessment WC - Nurse 1 - General Ulcer Measurement Start: 01/04/21 10:05 Freq: Status: Active Protocol: Activity Type Activity Date Activity User E-Sign Co-Sign Detail Recorded Client Recorded Date Recorded By Document 01/04/21 10:14 [email or web address] [id number] 01/04/21 10:28 DL 01/04/21 10:14 Wound Center Nurse 1 [Ulcer Assessment] #1 L Med Thigh -Current Size (cm) - Length 2 -Current Size (cm) - Width 0.5 -Current Size (cm) - Depth 1 -Total Square Cm 1.0 -Photo Taken Yes -Maximum Distance #2 (cm) 0.9 -Circular Undermining Yes -Classification - Thickness Full Thickness without Exposed Support Structure -Exudate Amt Medium -Exudate Type Serosanguineous -Wound Margin Distinct, Outline Attached -Granulation Amt Large (67-100%) -Granulation Quality Red -Necrosis Amt Small (1-33%) -Necrotic Tissue Type Adherent Slough -Structure Exposed N/A -Texture (Juanita-wound Skin Appearance) Localized Edema ,Scarring -Moisture (Juanita-wound Skin Appearance No Abnormality ) -Color (Juanita-wound Skin Appearance) Erythema -Temperature (Juanita-wound Skin No Abnormality Appearance) (Pt Warm) -Tenderness on Palpation (Juanita-wound No Skin Appearance) -Ulcer Cleansing Wound Cleanser -Foul Odor after Cleansing No -Anesthetic Used 4% Lidocaine Solution [Edema Assessment] -Left Calf (cm) 38.5 -Left Ankle (cm) 25.7 WC - Nurse 2 - General Ulcer CM Notes Start: 01/04/21 10:05 Freq: Status: Active Protocol: Activity Type Activity Date Activity User E-Sign Co-Sign Detail Recorded Client Recorded Date Recorded By Document 01/04/21 11:00 [email or web address] [id number] 01/04/21 11:11 [email or web address] 01/04/21 11:00 Wound Center Nurse 2 [Procedure/Treatment] #1 L [facility] Thigh -Time 11:05 -Correct Patient Yes -Correct Side, Site, Position Yes -Correct Procedure Yes -Procedure Performed Yes -Type of Procedure Debridement -Clinical Debridement Subcutaneous -Tissue Removed Subcutaneous -Post Debridement (cm) - Length 2 -Post Debridement (cm) - Width 0.6 -Post Debridement (cm) - Depth 1.1 -Total Square (Post) (cm) 1.2 -Area of Debridement (cm) - Length 2 -Area of Debridement (cm) - Width 0.6 -Total Square (Area) (cm) 1.2 -Tunneling No -Undermining/Tunneling No -Circular Undermining No -Wound/Ulcer Outcome Not Healed -Ulcer Cleansing Rinsed/ Irrigated with Saline -Foul Odor after Cleansing No -Bioengineered Tissue No -Bleeding Controlled with Pressure -Offloading No -Treatment Response Procedure Tolerated Well -Debridement - Subq, 1st 20sq cm Yes [See Physician Procedure note for Specifics] Pain Scale: 0-10 Numeric [Pain] -Is Patient Pain Free? Yes Musculoskeletal: No Tenderness to Palpation of Joints or Extremities Neurological: Cranial nerves II-XII grossly intact Psych/Mental Status: Normal Affect, Appropriate Debridement Note Post-Debridement Measurements/Treatment WC - Nurse 2 - General Ulcer CM Notes Start: 01/04/21 10:05 Freq: Status: Active Protocol: Activity Type Activity Date Activity User E-Sign Co-Sign Detail Recorded Client Recorded Date Recorded By Document 01/04/21 11:00 [id number] 01/04/21 11:11 01/04/21 11:00 Wound Center Nurse 2 #1 L [facility] Thigh -Time 11:05 -Correct Patient Yes -Correct Side, Site, Position Yes -Correct Procedure Yes -Procedure Performed Yes -Type of Procedure Debridement -Clinical Debridement Subcutaneous -Tissue Removed Subcutaneous -Post Debridement (cm) - Length 2 -Post Debridement (cm) - Width 0.6 -Post Debridement (cm) - Depth 1.1 -Total Square (Post) (cm) 1.2 -Area of Debridement (cm) - Length 2 -Area of Debridement (cm) - Width 0.6 -Total Square (Area) (cm) 1.2 -Tunneling No -Undermining/Tunneling No -Circular Undermining No -Wound/Ulcer Outcome Not Healed -Ulcer Cleansing Rinsed/ Irrigated with Saline -Foul Odor after Cleansing No -Bioengineered Tissue No -Bleeding Controlled with Pressure -Offloading No -Treatment Response Procedure Tolerated Well -Debridement - Subq, 1st 20sq cm Yes Pain Scale: 0-10 Numeric Is Patient Pain Free? Yes Wound debrided: Medial thigh wound Laterality: Left Type of Debridement: Excisional debridement Anesthesia Used: 5% Lidocaine Gel Depth: Down to and including healthy tissue, in the subcutaneous layer Percentage of wound debrided: 100 Instrument Used: 5mm curette Tissue Removed: Subcutaneous tissue and slough Severity: Fat Layer Exposed Amount of bleeding with debridement: Mild Bleeding Controlled with: Pressure Patient tolerated procedure well Assessment/Plan Active Problems (Last Reviewed 12/29/20 @ 10:30 by Rae REILLY PA-C) Open wound of left thigh (Acute) Abscess or cellulitis of thigh (Acute) Hypertension (Chronic) History of coronary artery bypass surgery (Chronic ~11/25/20) CABG x2- BLEVINS to LAD; CY/SVG (tandem graft via transverse sinus) to Ramus 11/25/20 @ [facility] by Dr. Antony Pulmonary hypertension (Chronic) Assessment: 1. Open wound of left thigh. 2. Abscess or cellulitis of thigh. 3. History of coronary artery bypass surgery (Chronic ~11/25/20) CABG x2- BLEVINS to LAD; CY/SVG (tandem graft via transverse sinus) to Ramus 11/25/20 @ [facility] [address] Antony. 4. Hypertension. 5. Pulmonary hypertension Plan: Patient was hospitalized last week. At discharge he thought he was told to follow-up with the wound center on Monday. He does live at home with his daughter. He is able to do his own wound care. He was seen today as a walk-in. Subcutaneous debridement was performed. He tolerated it well. Wound care -we will have him apply Aquacel Ag to the left medial thigh wound daily and cover with gauze. For his edema we will apply a double Tubigrip to his left lower leg with an Efrem wrap up his thigh to help compress this area. He is to continue his Augmentin antibiotics. Wound culture from 12/28/2020 was positive for Staphylococcus lugdunensis. He received IV antibiotics while he was hospitalized. He was discharged home on Augmentin for 7 days. He is to complete the Augmentin. There is some concern of the firmness surrounding the wound. It is in an upside down tear shape. Area was marked with pen. This needs to be monitored closely because of it does not improve, he may require further surgical debridement. Hopefully with antibiotics and compression this will help improve this area. Follows up with Dr. Ball on 01/06/2021. He will follow up in 1 week at the wound center. Stressed to patient the importance of following up immediately with either PCP or ED if he develops symptoms of fever, chills, nausea, vomiting, increasing redness or pain of left leg. Office Visits / Consults: [id number] OV L4 Est - 25 modifier [id number]: [id number] Emely subq tissue 20 sq cm/<
[2021-01-13 08:51] VITALS: BP 121/55; PULSE 75; RESP 18; TEMP 36.6; BMI 28.2
--- NOTE | 2021-01-13 10:55 | PCM.WC.PN ---
(1) Abscess or cellulitis of thigh Status: Acute (2) Open wound of left thigh Status: Acute Code(s): S71.102A - Unspecified open wound, left thigh, initial encounter (3) History of coronary artery bypass surgery Status: Chronic Code(s): Z95.1 - Presence of aortocoronary bypass graft Comment: CABG x2- BLEVINS to LAD; CY/SVG (tandem graft via transverse sinus) to Ramus 11/25/20 @ [facility] by Dr. Antony (4) Hypertension Status: Chronic Qualifiers: Hypertension type: essential hypertension Qualified Code(s): I10 - Essential (primary) hypertension Code(s): I10 - Essential (primary) hypertension Type of Wound Date of Service: 01/13/21 Chief Complaint: Left medial thigh wound after I&D in ED History of Wound: Patient presented to the ED on 12/28/20 with his left thigh being red, swollen, painful and warm to palpation. He has a history of CABG x 2 on 11/25/20 at [facility], after a NSTEMI, where they obtained a saphenous vein graft from left thigh. DVT was ruled out but the ultrasound revealed a large abscess which and I&D was performed in the ED under sedation. Wound culture from I&D was positive for Staphylococcus lugdunensis which he has been treated with Augmentin. Wound Care - He has been placing Nu gauze into the wound since he was discharged on 12/31/20. Will start Aquacel-Ag dressing placed in the wound daily and covered with gauze. Wash wound with soap and water daily. Today he denies fever. He states his appetite is good. Progress of Wound: The wound was seen by another healthcare provider at the wound center 1 week ago. Patient states it is smaller improving. Still has slough in the base that was debrided till clear. No redness or swelling or sign of infection noted cultures were obtained. - Physical Exam Vital Signs Temp Pulse Resp BP 97.8 F 75 18 121/55 H 01/13/21 08:51 01/13/21 08:51 01/13/21 08:51 01/13/21 08:51 General: Oriented x3, Cooperative, Well developed HEENT: Atraumatic, PERRLA Oral: Moist Mucosa Neck: Supple, No JVD Lungs: Clear to auscultation, Normal air movement Cardiovascular: Regular rate, Regular Rhythm Abdomen: Bowel Sounds Present, Soft, Non Tender, No Hepato-splenomegaly Extremities: No clubbing, No edema Skin: Ulcer/ Wound - Teardrop positive depth dehisced wound wound that had abscessed left upper thigh from surgical wound. Wound Measurements and Assessment WC - Nurse 1 - General Ulcer Measurement Start: 01/04/21 10:05 Freq: Status: Active Protocol: Activity Type Activity Date Activity User E-Sign Co-Sign Detail Recorded Client Recorded Date Recorded By Document 01/13/21 08:51 PL [id number] 01/13/21 09:00 PL 01/13/21 08:51 Wound Center Nurse 1 [Ulcer Assessment] #1 L Med Thigh -Combined with other wound No -Current Size (cm) - Length 1.5 -Current Size (cm) - Width 1.0 -Current Size (cm) - Depth 1.0 -Total Square Cm 1.50 -Photo Taken No -Epithelialization None Present -Tunneling No -Undermining/Tunneling No -Circular Undermining No -Exudate Amt Medium -Exudate Type Serosanguineous -Granulation Amt Medium (34-66%) -Granulation Quality Early -Slough/Fibrin Yes -Necrosis Amt Medium (34-66%) -Necrotic Tissue Type Adherent Slough -Texture (Juanita-wound Skin Appearance) No Abnormality, Callus -Color (Juanita-wound Skin Appearance) No Abnormality -Temperature (Juanita-wound Skin No Abnormality Appearance) (Pt Warm) -Ulcer Cleansing Rinsed/ Irrigated with Saline -Foul Odor after Cleansing No -Anesthetic Used 5% Lidocaine Gel WC - Nurse 2 - General Ulcer CM Notes Start: 01/04/21 10:05 Freq: Status: Active Protocol: Activity Type Activity Date Activity User E-Sign Co-Sign Detail Recorded Client Recorded Date Recorded By Document 01/13/21 09:16 MW [id number] 01/13/21 09:23 MW 01/13/21 09:16 Wound Center Nurse 2 [Procedure/Treatment] -Time 09:17 -Correct Patient Yes -Correct Side, Site, Position Yes -Correct Procedure Yes -Procedure Performed Yes -Type of Procedure Debridement -Clinical Debridement Subcutaneous -Tissue Removed Subcutaneous -Post Debridement (cm) - Length 1.5 -Post Debridement (cm) - Width 0.7 -Post Debridement (cm) - Depth 1.2 -Total Square (Post) (cm) 1.05 -Area of Debridement (cm) - Length 1.5 -Area of Debridement (cm) - Width 0.7 -Total Square (Area) (cm) 1.05 -Tunneling No -Undermining/Tunneling No -Circular Undermining No -Wound/Ulcer Outcome Not Healed -Ulcer Cleansing Rinsed/ Irrigated with Saline -Foul Odor after Cleansing No -Bioengineered Tissue No -Bleeding Controlled with Pressure -Offloading No -Treatment Response Procedure Tolerated Well -Debridement - Subq, 1st 20sq cm Yes [See Physician Procedure note for Specifics] Pain Scale: 0-10 Numeric [Pain] -Is Patient Pain Free? Yes - Nurse 3 - General Ulcer D/C NN Start: 01/04/21 10:05 Freq: Status: Active Protocol: Activity Type Activity Date Activity User E-Sign Co-Sign Detail Recorded Client Recorded Date Recorded By Document 01/13/21 09:44 KR [id number] 01/13/21 09:45 JC 01/13/21 09:44 Wound Care Nurse 3 [Wound Dressing] #1 L Med Thigh -Ulcer Cleansing Rinsed/ Irrigated with Saline -Primary Dressing Applied Aquacel AG 4x4, NonAdherent Contact Layer -Primary Dressing Covered/Secured Dry Gauze, with Secured with Tape -Aquacel AG 4x4 1 Pain Scale: 0-10 Numeric [Pain] -Is Patient Pain Free? Yes - Visit Discharge [Visit Discharge Information] -Discharge Condition Stable -Ambulatory Status Ambulatory -Transportation Private Auto Musculoskeletal: No Tenderness to Palpation of Joints or Extremities Lymphatic: No Cervical, Supraclavicular, or Inguinal Adenopathy Neurological: Cranial nerves II-XII grossly intact, Neuro grossly intact Psych/Mental Status: Normal Affect, Appropriate Debridement Note Post-Debridement Measurements/Treatment WC - Nurse 2 - General Ulcer CM Notes Start: 01/04/21 10:05 Freq: Status: Active Protocol: Activity Type Activity Date Activity User E-Sign Co-Sign Detail Recorded Client Recorded Date Recorded By Document 01/04/21 11:00 [email or web address] [id number] 01/04/21 11:11 JF Document 01/13/21 09:16 MW [id number] 01/13/21 09:23 MW 01/04/21 01/13/21 11:00 09:16 Wound Center Nurse 2 #1 L Med Thigh -Time 11:05 09:17 -Correct Patient Yes Yes -Correct Side, Site, Position Yes Yes -Correct Procedure Yes Yes -Procedure Performed Yes Yes -Type of Procedure Debridement Debridement -Clinical Debridement Subcutaneous Subcutaneous -Tissue Removed Subcutaneous Subcutaneous -Post Debridement (cm) - Length 2 1.5 -Post Debridement (cm) - Width 0.6 0.7 -Post Debridement (cm) - Depth 1.1 1.2 -Total Square (Post) (cm) 1.2 1.05 -Area of Debridement (cm) - Length 2 1.5 -Area of Debridement (cm) - Width 0.6 0.7 -Total Square (Area) (cm) 1.2 1.05 -Tunneling No No -Undermining/Tunneling No No -Circular Undermining No No -Wound/Ulcer Outcome Not Healed Not Healed -Ulcer Cleansing Rinsed/ Rinsed/ Irrigated with Irrigated with Saline Saline -Foul Odor after Cleansing No No -Bioengineered Tissue No No -Bleeding Controlled with Pressure Pressure -Offloading No No -Treatment Response Procedure Procedure Tolerated Well Tolerated Well -Debridement - Subq, 1st 20sq cm Yes Yes Pain Scale: 0-10 Numeric Is Patient Pain Free? Yes Yes - Nurse 3 - General Ulcer D/C NN Start: 01/04/21 10:05 Freq: Status: Active Protocol: Activity Type Activity Date Activity User E-Sign Co-Sign Detail Recorded Client Recorded Date Recorded By Document 01/13/21 09:44 JC [id number] 01/13/21 09:45 JC 01/13/21 09:44 Wound Care Nurse 3 #1 L Med Thigh -Ulcer Cleansing Rinsed/ Irrigated with Saline -Primary Dressing Applied Aquacel AG 4x4, NonAdherent Contact Layer -Primary Dressing Covered/Secured with Dry Gauze, Secured with Tape -Aquacel AG 4x4 1 Pain Scale: 0-10 Numeric Is Patient Pain Free? Yes WC - Visit Discharge Discharge Condition Stable Ambulatory Status Ambulatory Transportation Private Auto Wound debrided: Upper thigh wound Type of Debridement: Excisional debridement Anesthesia Used: 5% Lidocaine Gel Depth: Down to and including healthy tissue, in the subcutaneous layer Percentage of wound debrided: 100 Instrument Used: 5mm curette Tissue Removed: Slough and fibrin Severity: Fat Layer Exposed Amount of bleeding with debridement: Mild Bleeding Controlled with: Compression and gauze Patient tolerated procedure well Assessment/Plan Active Problems (Last Reviewed 12/29/20 @ 10:30 by Rae REILLY PA-C) Open wound of left thigh (Acute) Abscess or cellulitis of thigh (Acute) Hypertension (Chronic) History of coronary artery bypass surgery (Chronic ~11/25/20) CABG x2- BLEVINS to LAD; CY/SVG (tandem graft via transverse sinus) to Ramus 11/25/20 @ [facility] by Dr. Antony Pulmonary hypertension (Chronic) Assessment: 1. Open wound of left thigh. 2. Abscess or cellulitis of thigh. 3. History of coronary artery bypass surgery (Chronic ~11/25/20) CABG x2- BELVINS to LAD; CY/SVG (tandem graft via transverse sinus) to Ramus 11/25/20 @ [facility] [address] Dr[address] Antony. 4. Hypertension. 5. Pulmonary hypertension Plan: Wash wound with antibacterial soap. Neck with Aquacel extra moistened. Cover with Adaptic gauze and tape. We will call with culture results. Follow-up 1 week
== END 2021-01-13 23:59 ==
LOC: WC 09:00
PROVIDERS: PCP Family Medicine Geriatric Medicine; Referring Provider Hospitalist; Visit Provider Nurse Practitioner Family
DX: L97.122 Non-pressure chronic ulcer of left thigh with fat layer exposed (principal); T81.89XA Other complications of procedures, not elsewhere classified, initial encounter; L03.116 Cellulitis of left lower limb; R60.0 Localized edema; I25.10 Atherosclerotic heart disease of native coronary artery without angina pectoris; I27.20 Pulmonary hypertension, unspecified; I10 Essential (primary) hypertension; I25.2 Old myocardial infarction; Z79.82 Long term (current) use of aspirin; Z79.899 Other long term (current) drug therapy; Z87.891 Personal history of nicotine dependence; Z95.1 Presence of aortocoronary bypass graft
CPT/HCPCS: 11042; 87070; 87075; 87205; 99213; G0463

== ENCOUNTER 2021-01-14 13:10 | Outpatient (RCR) | payer MEDICARE, OTHER, SELFPAY ==
[2020-12-23 09:20] VITALS: BMI 29.0
[2021-01-13 08:51] VITALS: BMI 28.2
== END 2021-02-12 23:59 ==
LOC: CR 13:10
PROVIDERS: PCP Family Medicine Geriatric Medicine; Visit Provider Internal Medicine Cardiovascular Disease
DX: Z95.1 Presence of aortocoronary bypass graft (principal)

== ENCOUNTER → 2021-02-04 11:29 | Outpatient (CLI) | payer MEDICARE, OTHER, SELFPAY ==
[2020-12-23 09:20] VITALS: BMI 29.0
[2021-02-03 09:12] VITALS: BMI 28.2
--- NOTE | 2021-02-04 11:36 | RAD_ITS ---
INDICATION: SOB EXAMINATION/TECHNIQUE: X-RAY - XR Chest 2 Views COMPARISON: 12/28/2020. FINDINGS: Median sternotomy wires present. Multiple mediastinal clips. Chronic lung changes. Left basilar atelectasis/scarring. Tortuous and calcified thoracic aorta. The heart is not enlarged. No pleural effusion or pneumothorax. No acute osseous abnormalities. Diffuse degenerative changes of the spine. RAD/Chest PA and Lateral IMPRESSION: No acute radiographic abnormalities. Chronic lung changes. Left basilar atelectasis/scarring. Electronically Signed: Soy Greenberg MD at 19:59 EDT Tel , Service support ,
[2021-02-04 12:59] LABS: Thyroid Stim Hormone (TSH) 1.97 uIU/mL (0.358-3.74)
== END ==
LOC: POLAB3 11:31 → RAD 11:33
PROVIDERS: PCP Family Medicine Geriatric Medicine; Referring Provider Family Medicine Geriatric Medicine; Visit Provider Family Medicine Geriatric Medicine
DX: R06.02 Shortness of breath (principal); R53.83 Other fatigue
CPT/HCPCS: 36415; 71046; 84443

== ENCOUNTER 2021-02-10 10:30 | Outpatient (RCR) | payer MEDICARE, OTHER, SELFPAY ==
[2020-12-23 09:20] VITALS: BMI 29.0
[2021-01-14 00:54] VITALS: BP 121/55; PULSE 75; RESP 18; TEMP 36.6
[2021-01-20 08:43] VITALS: BP 148/76; PULSE 89; RESP 16; TEMP 35.8; BMI 28.2
--- NOTE | 2021-01-20 09:18 | PCM.WC.PN ---
(1) Abscess or cellulitis of thigh Status: Acute (2) Open wound of left thigh Status: Acute Code(s): S71.102A - Unspecified open wound, left thigh, initial encounter (3) History of coronary artery bypass surgery Status: Chronic Code(s): Z95.1 - Presence of aortocoronary bypass graft Comment: CABG x2- BLEVINS to LAD; CY/SVG (tandem graft via transverse sinus) to Ramus 11/25/20 @ [facility] by Dr[address] Antony Type of Wound Date of Service: 01/20/21 Chief Complaint: Left medial thigh wound after I&D in ED History of Wound: Patient presented to the ED on 12/28/20 with his left thigh being red, swollen, painful and warm to palpation. He has a history of CABG x 2 on 11/25/20 at [facility], after a NSTEMI, where they obtained a saphenous vein graft from left thigh. DVT was ruled out but the ultrasound revealed a large abscess which and I&D was performed in the ED under sedation. Wound culture from I&D was positive for Staphylococcus lugdunensis which he has been treated with Augmentin. Wound Care - He has been placing Nu gauze into the wound since he was discharged on 12/31/20. Will start Aquacel-Ag dressing placed in the wound daily and covered with gauze. Wash wound with soap and water daily. Today he denies fever. He states his appetite is good. Progress of Wound: The wound is improving with the use of Aquacel extra. No slough in base moist wound base smaller depth is better. The redness all over his body from the rash is gone he is allergic to Augmentin. Cultures came back negative. We will continue using Aquacel extra for now get the depth better. Patient is happy with treatment and improvements. - Physical Exam Vital Signs Temp Pulse Resp BP 96.5 F L 89 16 148/76 H 01/20/21 08:43 01/20/21 08:43 01/20/21 08:43 01/20/21 08:43 General: Oriented x3, Cooperative, Well developed HEENT: Atraumatic, PERRLA Oral: Moist Mucosa Neck: Supple, No JVD Lungs: Clear to auscultation, Normal air movement Cardiovascular: Regular rate, Regular Rhythm Abdomen: Bowel Sounds Present, Soft, Non Tender, No Hepato-splenomegaly Extremities: No clubbing, No edema Wound Measurements and Assessment - Nurse 1 - General Ulcer Measurement Start: 01/20/21 08:43 Freq: Status: Active Protocol: Activity Type Activity Date Activity User E-Sign Co-Sign Detail Recorded Client Recorded Date Recorded By Document 01/20/21 08:43 [facility] [id number] 01/20/21 08:45 [facility] 01/20/21 08:43 Wound Center Nurse 1 [Ulcer Assessment] #1 L Med Thigh -Combined with other wound No -Current Size (cm) - Length 0.9 -Current Size (cm) - Width 1.4 -Current Size (cm) - Depth 0.3 -Total Square Cm 1.26 -Photo Taken No -Epithelialization None Present -Tunneling No -Undermining/Tunneling No -Circular Undermining No -Exudate Amt Medium -Exudate Type Serosanguineous -Wound Margin Distinct, Outline Attached -Granulation Amt Large (67-100%) -Granulation Quality Red -Slough/Fibrin Yes -Necrosis Amt Small (1-33%) -Necrotic Tissue Type Adherent Slough -Texture (Juanita-wound Skin Appearance) Assessed, Scarring -Moisture (Juanita-wound Skin Appearance Assessed ) -Color (Juanita-wound Skin Appearance) Assessed -Temperature (Juanita-wound Skin No Abnormality Appearance) (Pt Warm) -Tenderness on Palpation (Juanita-wound No Skin Appearance) -Ulcer Cleansing Rinsed/ Irrigated with Saline -Foul Odor after Cleansing No -Anesthetic Used 4% Lidocaine Solution WC - Nurse 2 - General Ulcer CM Notes Start: 01/20/21 08:43 Freq: Status: Active Protocol: Activity Type Activity Date Activity User E-Sign Co-Sign Detail Recorded Client Recorded Date Recorded By Document 01/20/21 08:58 MW [id number] 01/20/21 09:01 MW 01/20/21 08:58 Wound Center Nurse 2 [Procedure/Treatment] -Time 08:59 -Correct Patient Yes -Correct Side, Site, Position Yes -Correct Procedure Yes -Procedure Performed Yes -Type of Procedure Debridement -Clinical Debridement Subcutaneous -Tissue Removed Subcutaneous -Post Debridement (cm) - Length 1.5 -Post Debridement (cm) - Width 0.6 -Post Debridement (cm) - Depth 0.7 -Total Square (Post) (cm) 0.90 -Area of Debridement (cm) - Length 1.5 -Area of Debridement (cm) - Width 0.6 -Total Square (Area) (cm) 0.90 -Tunneling No -Undermining/Tunneling No -Circular Undermining No -Wound/Ulcer Outcome Not Healed -Ulcer Cleansing Rinsed/ Irrigated with Saline -Foul Odor after Cleansing No -Bioengineered Tissue No -Bleeding Controlled with Pressure -Offloading No -Treatment Response Procedure Tolerated Well -Debridement - Subq, 1st 20sq cm Yes [See Physician Procedure note for Specifics] Pain Scale: 0-10 Numeric [Pain] -Is Patient Pain Free? Yes - Nurse 3 - General Ulcer D/C NN Start: 01/20/21 08:43 Freq: Status: Active Protocol: Activity Type Activity Date Activity User E-Sign Co-Sign Detail Recorded Client Recorded Date Recorded By Document 01/20/21 09:06 KR [id number] 01/20/21 09:06 KR 01/20/21 09:06 Wound Care Nurse 3 [Wound Dressing] #1 L Med Thigh -Ulcer Cleansing Rinsed/ Irrigated with Saline -Primary Dressing Applied Aquacel Extra, NonAdherent Contact Layer -Primary Dressing Covered/Secured Dry Gauze, with Secured with Tape -Aquacel Extra 1 Pain Scale: 0-10 Numeric [Pain] -Is Patient Pain Free? Yes - Visit Discharge [Visit Discharge Information] -Discharge Condition Stable -Ambulatory Status Ambulatory -Transportation Private Auto Musculoskeletal: No Tenderness to Palpation of Joints or Extremities Lymphatic: No Cervical, Supraclavicular, or Inguinal Adenopathy Neurological: Cranial nerves II-XII grossly intact, Neuro grossly intact Psych/Mental Status: Normal Affect, Appropriate Debridement Note Post-Debridement Measurements/Treatment - Nurse 2 - General Ulcer CM Notes Start: 01/20/21 08:43 Freq: Status: Active Protocol: Activity Type Activity Date Activity User E-Sign Co-Sign Detail Recorded Client Recorded Date Recorded By Document 01/20/21 08:58 MW [id number] 01/20/21 09:01 MW 01/20/21 08:58 Wound Center Nurse 2 #1 L Med Thigh -Time 08:59 -Correct Patient Yes -Correct Side, Site, Position Yes -Correct Procedure Yes -Procedure Performed Yes -Type of Procedure Debridement -Clinical Debridement Subcutaneous -Tissue Removed Subcutaneous -Post Debridement (cm) - Length 1.5 -Post Debridement (cm) - Width 0.6 -Post Debridement (cm) - Depth 0.7 -Total Square (Post) (cm) 0.90 -Area of Debridement (cm) - Length 1.5 -Area of Debridement (cm) - Width 0.6 -Total Square (Area) (cm) 0.90 -Tunneling No -Undermining/Tunneling No -Circular Undermining No -Wound/Ulcer Outcome Not Healed -Ulcer Cleansing Rinsed/ Irrigated with Saline -Foul Odor after Cleansing No -Bioengineered Tissue No -Bleeding Controlled with Pressure -Offloading No -Treatment Response Procedure Tolerated Well -Debridement - Subq, 1st 20sq cm Yes Pain Scale: 0-10 Numeric Is Patient Pain Free? Yes - Nurse 3 - General Ulcer D/C NN Start: 01/20/21 08:43 Freq: Status: Active Protocol: Activity Type Activity Date Activity User E-Sign Co-Sign Detail Recorded Client Recorded Date Recorded By Document 01/20/21 09:06 JC [id number] 01/20/21 09:06 JC 01/20/21 09:06 Wound Care Nurse 3 #1 L Med Thigh -Ulcer Cleansing Rinsed/ Irrigated with Saline -Primary Dressing Applied Aquacel Extra, NonAdherent Contact Layer -Primary Dressing Covered/Secured with Dry Gauze, Secured with Tape -Aquacel Extra 1 Pain Scale: 0-10 Numeric Is Patient Pain Free? Yes WC - Visit Discharge Discharge Condition Stable Ambulatory Status Ambulatory Transportation Private Auto Wound debrided: Left mid thigh wound Type of Debridement: Excisional debridement Anesthesia Used: 5% Lidocaine Gel Depth: Down to and including healthy tissue Percentage of wound debrided: 100 Instrument Used: 5mm curette Tissue Removed: Fibrin Severity: Fat Layer Exposed Amount of bleeding with debridement: Mild Bleeding Controlled with: Compression and gauze Patient tolerated procedure well Assessment/Plan Assessment: 1. Open wound of left thigh. 2. Abscess or cellulitis of thigh. 3. History of coronary artery bypass surgery (Chronic ~11/25/20) CABG x2- BLEVINS to LAD; CY/SVG (tandem graft via transverse sinus) to Ramus 11/25/20 @ [facility] by Dr. Antony. 4. Hypertension. 5. Pulmonary hypertension Plan: Wash wound with antibacterial soap. Back with Aquacel extra moistened. Cover with Adaptic gauze and tape. Follow-up 1 week
[2021-01-27 08:47] VITALS: BP 155/76; PULSE 91; TEMP 35.6; BMI 28.2
--- NOTE | 2021-01-27 10:36 | PCM.WC.PN ---
(1) Abscess or cellulitis of thigh Status: Acute (2) Open wound of left thigh Status: Acute Code(s): S71.102A - Unspecified open wound, left thigh, initial encounter (3) History of coronary artery bypass surgery Status: Chronic Code(s): Z95.1 - Presence of aortocoronary bypass graft Comment: CABG x2- BLEVINS to LAD; CY/SVG (tandem graft via transverse sinus) to Ramus 11/25/20 @ [facility] by Dr. Antony Type of Wound Date of Service: 01/27/21 Chief Complaint: Left medial thigh wound after I&D in ED History of Wound: Patient presented to the ED on 12/28/20 with his left thigh being red, swollen, painful and warm to palpation. He has a history of CABG x 2 on 11/25/20 at [facility], after a NSTEMI, where they obtained a saphenous vein graft from left thigh. DVT was ruled out but the ultrasound revealed a large abscess which and I&D was performed in the ED under sedation. Wound culture from I&D was positive for Staphylococcus lugdunensis which he has been treated with Augmentin. Wound Care - He has been placing Nu gauze into the wound since he was discharged on 12/31/20. Will start Aquacel-Ag dressing placed in the wound daily and covered with gauze. Wash wound with soap and water daily. Today he denies fever. He states his appetite is good. Progress of Wound: The wound is improving with the use of Aquacel extra but developing more slough will try using Promogran now. The wound is measuring smaller in depth is more shallow. Cultures came back negative. Patient is happy with treatment and improvements. - Physical Exam Vital Signs Temp Pulse Resp BP 96.0 F L 91 16 155/76 H 01/27/21 08:47 01/27/21 08:47 01/20/21 08:43 01/27/21 08:47 General: Oriented x3, Cooperative, Well developed HEENT: Atraumatic, PERRLA Oral: Moist Mucosa Neck: Supple, No JVD Lungs: Clear to auscultation, Normal air movement Cardiovascular: Regular rate, Regular Rhythm Abdomen: Bowel Sounds Present, Soft, Non Tender, No Hepato-splenomegaly Extremities: No clubbing, No edema, - - Left inner upper thigh dehisced wound Wound Measurements and Assessment - Nurse 1 - General Ulcer Measurement Start: 01/20/21 08:43 Freq: Status: Active Protocol: Activity Type Activity Date Activity User E-Sign Co-Sign Detail Recorded Client Recorded Date Recorded By Document 01/27/21 08:47 KR [id number] 01/27/21 08:51 KR 01/27/21 08:47 Wound Center Nurse 1 [Ulcer Assessment] #1 L Med Thigh -Current Size (cm) - Length 1.2 -Current Size (cm) - Width 0.5 -Current Size (cm) - Depth 0.5 -Total Square Cm 0.60 -Exudate Amt Medium -Exudate Type Yellow/Green -Wound Margin Distinct, Outline Attached -Granulation Amt Medium (34-66%) -Granulation Quality [place] -Necrosis Amt Medium (34-66%) -Necrotic Tissue Type Adherent Slough -Texture (Juanita-wound Skin Appearance) Assessed, Scarring -Moisture (Juanita-wound Skin Appearance No Abnormality, ) Assessed -Color (Juanita-wound Skin Appearance) No Abnormality, Assessed -Temperature (Juanita-wound Skin No Abnormality Appearance) (Pt Warm) -Tenderness on Palpation (Juanita-wound No Skin Appearance) -Ulcer Cleansing Rinsed/ Irrigated with Saline -Foul Odor after Cleansing No -Anesthetic Used 4% Lidocaine Solution - Nurse 2 - General Ulcer CM Notes Start: 01/20/21 08:43 Freq: Status: Active Protocol: Activity Type Activity Date Activity User E-Sign Co-Sign Detail Recorded Client Recorded Date Recorded By Document 01/27/21 09:00 MW [id number] 01/27/21 09:01 MW 01/27/21 09:00 Wound Center Nurse 2 [Procedure/Treatment] -Time 09:00 -Correct Patient Yes -Correct Side, Site, Position Yes -Correct Procedure Yes -Procedure Performed Yes -Type of Procedure Debridement -Clinical Debridement Subcutaneous -Tissue Removed Subcutaneous -Post Debridement (cm) - Length 1.0 -Post Debridement (cm) - Width 0.4 -Post Debridement (cm) - Depth 0.4 -Total Square (Post) (cm) 0.40 -Area of Debridement (cm) - Length 1.0 -Area of Debridement (cm) - Width 0.4 -Total Square (Area) (cm) 0.40 -Tunneling No -Undermining/Tunneling No -Circular Undermining No -Wound/Ulcer Outcome Not Healed -Ulcer Cleansing Rinsed/ Irrigated with Saline -Foul Odor after Cleansing No -Bioengineered Tissue No -Bleeding Controlled with Pressure -Offloading No -Treatment Response Procedure Tolerated Well -Debridement - Subq, 1st 20sq cm Yes [See Physician Procedure note for Specifics] Pain Scale: 0-10 Numeric [Pain] -Is Patient Pain Free? Yes - Nurse 3 - General Ulcer D/C NN Start: 01/20/21 08:43 Freq: Status: Active Protocol: Activity Type Activity Date Activity User E-Sign Co-Sign Detail Recorded Client Recorded Date Recorded By Document 01/27/21 09:04 KR [id number] 01/27/21 09:05 KR 01/27/21 09:04 Wound Care Nurse 3 [Wound Dressing] #1 L Med Thigh -Ulcer Cleansing Rinsed/ Irrigated with Saline -Primary Dressing Applied NonAdherent Contact Layer, Promogran -Primary Dressing Covered/Secured Dry Gauze, with Secured with Tape -Promogran 2 Pain Scale: 0-10 Numeric [Pain] -Is Patient Pain Free? Yes - Visit Discharge [Visit Discharge Information] -Discharge Condition Stable -Ambulatory Status Ambulatory -Transportation Private Auto Musculoskeletal: No Tenderness to Palpation of Joints or Extremities Lymphatic: No Cervical, Supraclavicular, or Inguinal Adenopathy Neurological: Cranial nerves II-XII grossly intact, Neuro grossly intact Psych/Mental Status: Normal Affect, Appropriate, Alert and oriented to time, place, person, mood and affect Debridement Note Post-Debridement Measurements/Treatment - Nurse 2 - General Ulcer CM Notes Start: 01/20/21 08:43 Freq: Status: Active Protocol: Activity Type Activity Date Activity User E-Sign Co-Sign Detail Recorded Client Recorded Date Recorded By Document 01/20/21 08:58 MW [id number] 01/20/21 09:01 MW Document 01/27/21 09:00 MW [id number] 01/27/21 09:01 MW 01/20/21 01/27/21 08:58 09:00 Wound Center Nurse 2 #1 L Med Thigh -Time 08:59 09:00 -Correct Patient Yes Yes -Correct Side, Site, Position Yes Yes -Correct Procedure Yes Yes -Procedure Performed Yes Yes -Type of Procedure Debridement Debridement -Clinical Debridement Subcutaneous Subcutaneous -Tissue Removed Subcutaneous Subcutaneous -Post Debridement (cm) - Length 1.5 1.0 -Post Debridement (cm) - Width 0.6 0.4 -Post Debridement (cm) - Depth 0.7 0.4 -Total Square (Post) (cm) 0.90 0.40 -Area of Debridement (cm) - Length 1.5 1.0 -Area of Debridement (cm) - Width 0.6 0.4 -Total Square (Area) (cm) 0.90 0.40 -Tunneling No No -Undermining/Tunneling No No -Circular Undermining No No -Wound/Ulcer Outcome Not Healed Not Healed -Ulcer Cleansing Rinsed/ Rinsed/ Irrigated with Irrigated with Saline Saline -Foul Odor after Cleansing No No -Bioengineered Tissue No No -Bleeding Controlled with Pressure Pressure -Offloading No No -Treatment Response Procedure Procedure Tolerated Well Tolerated Well -Debridement - Subq, 1st 20sq cm Yes Yes Pain Scale: 0-10 Numeric Is Patient Pain Free? Yes Yes - Nurse 3 - General Ulcer D/C NN Start: 01/20/21 08:43 Freq: Status: Active Protocol: Activity Type Activity Date Activity User E-Sign Co-Sign Detail Recorded Client Recorded Date Recorded By Document 01/20/21 09:06 KR [id number] 01/20/21 09:06 KR Document 01/27/21 09:04 KR [id number] 01/27/21 09:05 KR 01/20/21 01/27/21 09:06 09:04 Wound Care Nurse 3 #1 L Med Thigh -Ulcer Cleansing Rinsed/ Rinsed/ Irrigated with Irrigated with Saline Saline -Primary Dressing Applied Aquacel Extra, NonAdherent NonAdherent Contact Layer, Contact Layer Promogran -Primary Dressing Covered/Secured with Dry Gauze, Dry Gauze, Secured with Secured with Tape Tape -Aquacel Extra 1 -Promogran 2 Pain Scale: 0-10 Numeric Is Patient Pain Free? Yes Yes - Visit Discharge Discharge Condition Stable Stable Ambulatory Status Ambulatory Ambulatory Transportation Private Auto Private Auto Wound debrided: Left mid thigh wound Type of Debridement: Excisional debridement Anesthesia Used: 5% Lidocaine Gel Depth: Down to and including healthy tissue, in the subcutaneous layer Percentage of wound debrided: 100 Instrument Used: 5mm curette Tissue Removed: Slough and fibrin Severity: Limited To Skin Breakdown Amount of bleeding with debridement: Mild Bleeding Controlled with: Compression and gauze Patient tolerated procedure well Assessment/Plan Active Problems (Last Reviewed 12/29/20 @ 10:30 by Rae REILLY, PARonC) Open wound of left thigh (Acute) Abscess or cellulitis of thigh (Acute) History of coronary artery bypass surgery (Chronic ~11/25/20) CABG x2- BLEVINS to LAD; CY/SVG (tandem graft via transverse sinus) to Ramus 11/25/20 @ [facility] by Dr. Antony Assessment: 1. Open wound of left thigh. 2. Abscess or cellulitis of thigh. 3. History of coronary artery bypass surgery (Chronic ~11/25/20) CABG x2- BLEVINS to LAD; CY/SVG (tandem graft via transverse sinus) to Ramus 11/25/20 @ [facility] [address] Dr[address] Antony. 4. Hypertension. 5. Pulmonary hypertension Plan: Wash wound with antibacterial soap. Pack with Promogran. Cover with Adaptic gauze and tape. Follow-up 1 week
[2021-02-03 09:12] VITALS: BP 159/82; PULSE 104; TEMP 36.6; BMI 28.2
--- NOTE | 2021-02-03 10:31 | PN.PCM_ITS ---
(1) Abscess or cellulitis of thigh Status: Acute (2) Open wound of left thigh Status: Acute Code(s): S71.102A - Unspecified open wound, left thigh, initial encounter (3) History of coronary artery bypass surgery Status: Chronic Code(s): Z95.1 - Presence of aortocoronary bypass graft Comment: CABG x2- BLEVINS to LAD; CY/SVG (tandem graft via transverse sinus) to Ramus 11/25/20 @ [facility] by Dr. Antony Type of Wound Date of Service: 02/03/21 Chief Complaint: Left medial thigh wound after I&D in ED History of Wound: Patient presented to the ED on 12/28/20 with his left thigh being red, swollen, painful and warm to palpation. He has a history of CABG x 2 on 11/25/20 at [facility], after a NSTEMI, where they obtained a saphenous vein graft from left thigh. DVT was ruled out but the ultrasound revealed a large abscess which and I&D was performed in the ED under sedation. Wound culture from I&D wa s positive for Staphylococcus lugdunensis which he has been treated with Augmentin. Wound Care - He has been placing Nu gauze into the wound since he was discharged on 12/31/20. Will start Aquacel-Ag dressing placed in the wound daily and covered with gauze. Wash wound with soap and water daily. Today he denies fever. He states his appetite is good. Progress of Wound: The wound is improving with the use of Aquacel extra but developing more slough will try using Promogran now. The wound is measuring smaller in depth is more shallow. Cultures came back negative. Patient is happy with treatment and improvements. - Physical Exam Vital Signs Temp Pulse Resp BP 97.9 F 104 H 16 159/82 H 02/03/21 09:12 02/03/21 09:12 01/20/21 08:43 02/03/21 09:12 General: Oriented x3, Cooperative, Well developed HEENT: Atraumatic, PERRLA Oral: Moist Mucosa Neck: Supple, No JVD Lungs: Clear to auscultation, Normal air movement Cardiovascular: Regular rate, Regular Rhythm Abdomen: Bowel Sounds Present, Soft, Non Tender, No Hepato-splenomegaly Extremities: No clubbing, No edema Skin: Ulcer/ Wound - Wound left inner thigh from surgery that dehisced almost closed now Wound Measurements and Assessment WC - Nurse 1 - General Ulcer Measurement Start: 01/20/21 08:43 Freq: Status: Active Protocol: Activity Type Activity Date Activity User E-Sign Co-Sign Detail Recorded Client Recorded Date Recorded By Document 02/03/21 09:12 KR [id number] 02/03/21 09:18 KR 02/03/21 09:12 Wound Center Nurse 1 [Ulcer Assessment] #1 L Med Thigh -Current Size (cm) - Length 1.1 -Current Size (cm) - Width 0.5 -Current Size (cm) - Depth 0.3 -Total Square Cm 0.55 -Exudate Amt Small -Exudate Type Serosanguineous -Wound Margin Distinct, Outline Attached -Granulation Amt Medium (34-66%) -Granulation Quality Red -Necrosis Amt Medium (34-66%) -Necrotic Tissue Type Adherent Slough -Texture (Juanita-wound Skin Appearance) Assessed, Scarring -Moisture (Juanita-wound Skin Appearance No Abnormality, ) Assessed -Color (Juanita-wound Skin Appearance) No Abnormality, Assessed -Temperature (Juanita-wound Skin No Abnormality Appearance) (Pt Warm) -Tenderness on Palpation (Juanita-wound No Skin Appearance) -Ulcer Cleansing Rinsed/ Irrigated with Saline -Foul Odor after Cleansing No -Anesthetic Used 4% Lidocaine Solution - Nurse 2 - General Ulcer CM Notes Start: 01/20/21 08:43 Freq: Status: Active Protocol: Activity Type Activity Date Activity User E-Sign Co-Sign Detail Recorded Client Recorded Date Recorded By Document 02/03/21 09:44 MW [id number] 02/03/21 09:44 MW 02/03/21 09:44 Wound Center Nurse 2 [Procedure/Treatment] -Time 09:44 -Correct Patient Yes -Correct Side, Site, Position Yes -Correct Procedure Yes -Procedure Performed Yes -Type of Procedure Debridement -Clinical Debridement Subcutaneous -Tissue Removed Subcutaneous -Post Debridement (cm) - Length 0.7 -Post Debridement (cm) - Width 0.2 -Post Debridement (cm) - Depth 0.2 -Total Square (Post) (cm) 0.14 -Area of Debridement (cm) - Length 0.7 -Area of Debridement (cm) - Width 0.2 -Total Square (Area) (cm) 0.14 -Tunneling No -Undermining/Tunneling No -Circular Undermining No -Wound/Ulcer Outcome Not Healed -Ulcer Cleansing Rinsed/ Irrigated with Saline -Foul Odor after Cleansing No -Bioengineered Tissue No -Debridement - Subq, 1st 20sq cm Yes [See Physician Procedure note for Specifics] Pain Scale: 0-10 Numeric [Pain] -Is Patient Pain Free? Yes WC - Nurse 3 - General Ulcer D/C NN Start: 01/20/21 08:43 Freq: Status: Active Protocol: Activity Type Activity Date Activity User E-Sign Co-Sign Detail Recorded Client Recorded Date Recorded By Document 02/03/21 09:49 MW [id number] 02/03/21 09:50 MW 02/03/21 09:49 Wound Care Nurse 3 [Wound Dressing] #1 L Med Thigh -Ulcer Cleansing Rinsed/ Irrigated with Saline -Foul Odor after Cleansing No -Negative Pressure Wound Therapy N/A -Primary Dressing Applied NonAdherent Contact Layer, Promogran -Primary Dressing Covered/Secured Dry Gauze, with Secured with Tape -Promogran 1 [Post Procedure Tolerated] -Treatment Response Procedure Tolerated Well Pain Scale: 0-10 Numeric [Pain] -Is Patient Pain Free? Yes Teaching: Wound Center [Wound Center Education] (Items with an * have Printed Materials Available- Please identify what is given to patient under the Teaching materials given to patient and caregiver Section. Dressing Your Wound -Person Taught Patient -Teaching Method Discussion, Demonstration -Response to teaching Verbalize understanding WC - Visit Discharge [Visit Discharge Information] -Discharge Condition Stable -Ambulatory Status Ambulatory -Transportation Private Auto -Accompanied by self -Medication Reconcilliation completed No & provided to patient/care provider -Clinical Summary of Care Provided Yes Musculoskeletal: No Tenderness to Palpation of Joints or Extremities Lymphatic: No Cervical, Supraclavicular, or Inguinal Adenopathy Neurological: Cranial nerves II-XII grossly intact, Neuro grossly intact Psych/Mental Status: Normal Affect, Appropriate Debridement Note Post-Debridement Measurements/Treatment WC - Nurse 2 - General Ulcer CM Notes Start: 01/20/21 08:43 Freq: Status: Active Protocol: Activity Type Activity Date Activity User E-Sign Co-Sign Detail Recorded Client Recorded Date Recorded By Document 01/20/21 08:58 MW [id number] 01/20/21 09:01 MW Document 01/27/21 09:00 MW [id number] 01/27/21 09:01 MW Document 02/03/21 09:44 MW [id number] 02/03/21 09:44 MW 01/20/21 01/27/21 02/03/21 08:58 09:00 09:44 Wound Center Nurse 2 #1 L Med Thigh -Time 08:59 09:00 09:44 -Correct Patient Yes Yes Yes -Correct Side, Site, Position Yes Yes Yes -Correct Procedure Yes Yes Yes -Procedure Performed Yes Yes Yes -Type of Procedure Debridement Debridement Debridement -Clinical Debridement Subcutaneous Subcutaneous Subcutaneous -Tissue Removed Subcutaneous Subcutaneous Subcutaneous -Post Debridement (cm) - Length 1.5 1.0 0.7 -Post Debridement (cm) - Width 0.6 0.4 0.2 -Post Debridement (cm) - Depth 0.7 0.4 0.2 -Total Square (Post) (cm) 0.90 0.40 0.14 -Area of Debridement (cm) - Length 1.5 1.0 0.7 -Area of Debridement (cm) - Width 0.6 0.4 0.2 -Total Square (Area) (cm) 0.90 0.40 0.14 -Tunneling No No No -Undermining/Tunneling No No No -Circular Undermining No No No -Wound/Ulcer Outcome Not Healed Not Healed Not Healed -Ulcer Cleansing Rinsed/ Rinsed/ Rinsed/ Irrigated with Irrigated with Irrigated with Saline Saline Saline -Foul Odor after Cleansing No No No -Bioengineered Tissue No No No -Bleeding Controlled with Pressure Pressure -Offloading No No -Treatment Response Procedure Procedure Tolerated Well Tolerated Well -Debridement - Subq, 1st 20sq cm Yes Yes Yes Pain Scale: 0-10 Numeric Is Patient Pain Free? Yes Yes Yes WC - Nurse 3 - General Ulcer D/C NN Start: 01/20/21 08:43 Freq: Status: Active Protocol: Activity Type Activity Date Activity User E-Sign Co-Sign Detail Recorded Client Recorded Date Recorded By Document 01/20/21 09:06 KR [id number] 01/20/21 09:06 KR Document 01/27/21 09:04 KR [id number] 01/27/21 09:05 KR Document 02/03/21 09:49 MW [id number] 02/03/21 09:50 MW 01/20/21 01/27/21 02/03/21 09:06 09:04 09:49 Wound Care Nurse 3 #1 L Med Thigh -Ulcer Cleansing Rinsed/ Rinsed/ Rinsed/ Irrigated with Irrigated with Irrigated with Saline Saline Saline -Foul Odor after Cleansing No -Negative Pressure Wound Therapy N/A -Primary Dressing Applied Aquacel Extra, NonAdherent NonAdherent NonAdherent Contact Layer, Contact Layer, Contact Layer Promogran Promogran -Primary Dressing Covered/Secured with Dry Gauze, Dry Gauze, Dry Gauze, Secured with Secured with Secured with Tape Tape Tape -Aquacel Extra 1 -Promogran 2 1 Treatment Response Procedure Tolerated Well Pain Scale: 0-10 Numeric Is Patient Pain Free? Yes Yes Yes Teaching: Wound Center Dressing Your Wound -Person Taught Patient -Teaching Method Discussion, Demonstration -Response to teaching Verbalize understanding WC - Visit Discharge Discharge Condition Stable Stable Stable Ambulatory Status Ambulatory Ambulatory Ambulatory Transportation Private Auto Private Auto Private Auto Accompanied by self Medication Reconcilliation completed & No provided to patient/care provider Clinical Summary of Care Provided Yes Wound debrided: Inner thigh Type of Debridement: Excisional debridement Anesthesia Used: 5% Lidocaine Gel Depth: Down to and including healthy tissue, in the subcutaneous layer Percentage of wound debrided: 100 Instrument Used: 3mm curette Tissue Removed: Fibrin Severity: Limited To Skin Breakdown Assessment/Plan Active Problems (Last Reviewed 12/29/20 @ 10:30 by JULIA JimenezC) Open wound of left thigh (Acute) Abscess or cellulitis of thigh (Acute) History of coronary artery bypass surgery (Chronic ~11/25/20) CABG x2- BLEVINS to LAD; CY/SVG (tandem graft via transverse sinus) to Ramus 11/25/20 @ [facility] by Dr. Antony Assessment: 1. Open wound of left thigh. 2. Abscess or cellulitis of thigh resolved. 3. History of coronary artery bypass surgery (Chronic ~11/25/20) CABG x2- BLEVINS to LAD; CY/SVG (tandem graft via transverse sinus) to Ramus 11/25/20 @ [facility] by Dr. Antony. 4. Hypertension. 5. Pulmonary hypertension Plan: Wash wound with antibacterial soap. Pack with Promogran. Cover with Adaptic gauze and tape. Follow-up 1 week
[2021-02-10 10:30] VITALS: BP 144/75; PULSE 81; RESP 18; TEMP 36.2; BMI 28.2
--- NOTE | 2021-02-10 10:54 | PCM.PROGNOTE ---
Subjective Subjective: patient is here for follow up on his L inner upper thigh wound that dehisced from a previous surgery and is healed today Objective Data Objective Data Todday the wound is closed and will be d/c from the wound center Vital Signs: Vital Signs Temp Pulse Resp BP 97.1 F L 81 18 144/75 H 02/10/21 10:30 02/10/21 10:30 02/10/21 10:30 02/10/21 10:30 Oxygen Delivery Method Room Air Weight: 185 lb 13.683 oz Body Mass Index (BMI) 28.2 Physical Exam Const alert and oriented x3 Skin Rashes: No rashes noted Wounds: wounds noted size Size: 0.1x0.1, No drainage, margins well approximated, No malodorous, No no odor, No open and No surrounding erythema Neuro CN's II-XII intact bilaterally Psych affect normal Appearance: appropriate Assessment & Plan Assessment/Plan (1) Open wound of left thigh: Status: Acute Code(s): S71.102A - Unspecified open wound, left thigh, initial encounter Qualifiers: Encounter type: subsequent encounter Qualified Code(s): S71.102D - Unspecified open wound, left thigh, subsequent encounter (2) Abscess or cellulitis of thigh: Status: Acute
--- NOTE | 2021-02-10 12:51 | PCM.PROGNOTE ---
Subjective Subjective: 80 year old white male with a Lupper inner thigh wound from a surgical arm used in surgery reopened . Objective Data Objective Data Today the wound is closed and will be d/c from the wound center patine appears happy and content with skin closure and did well on Promogran Vital Signs: Vital Signs Temp Pulse Resp BP 97.1 F L 81 18 144/75 H 02/10/21 10:30 02/10/21 10:30 02/10/21 10:30 02/10/21 10:30 Oxygen Delivery Method Room Air Weight: 185 lb 13.683 oz Body Mass Index (BMI) 28.2 Physical Exam Const oriented x3 HEENT head/scalp atraumatic Eyes PERRL Neck supple Lymph Lymphatic: no lymphadenopathy noted Resp normal respiratory effort Cardio regular rate GI normal to inspection, nondistended, normoactive bowel sounds Extremity no clubbing, cyanosis or edema Skin Skin Narrative: wound is closed General Skin Exam: turgor normal Wounds: wounds noted Neuro CN's II-XII intact bilaterally Psych affect normal Assessment & Plan Assessment/Plan (1) Open wound of left thigh: Status: Acute Code(s): S71.102A - Unspecified open wound, left thigh, initial encounter Qualifiers: Encounter type: subsequent encounter Qualified Code(s): S71.102D - Unspecified open wound, left thigh, subsequent encounter Plan: discharge form the wound ceter and follow up as needed (2) Abscess or cellulitis of thigh: Status: Acute Plan: resolved
== END 2021-02-10 11:07 | disposition home or self-care (01) ==
LOC: WC 10:30
PROVIDERS: PCP Family Medicine Geriatric Medicine; Referring Provider Hospitalist; Visit Provider Nurse Practitioner
DX: S71.102A Unspecified open wound, left thigh, initial encounter (principal); T81.30XA Disruption of wound, unspecified, initial encounter; Y83.8 Other surgical procedures as the cause of abnormal reaction of the patient, or of later complication, without mention of misadventure at the time of the procedure; Y92.9 Unspecified place or not applicable; I27.20 Pulmonary hypertension, unspecified; I10 Essential (primary) hypertension; Z79.82 Long term (current) use of aspirin; Z79.899 Other long term (current) drug therapy; I25.2 Old myocardial infarction; Z95.1 Presence of aortocoronary bypass graft
CPT/HCPCS: 11042; 99212; G0463

== ENCOUNTER → 2021-03-08 11:26 | Outpatient (CLI) | payer MEDICARE, OTHER, SELFPAY ==
[2020-12-23 09:20] VITALS: BMI 29.0
[2021-02-10 10:30] VITALS: BMI 28.2
[2021-03-08 12:27] LABS: Absolute Neutrophil Count 4.4 X10^3/uL (2.0-7.7); Basophil# 0.04 X10^3/uL; Basophil% 0.5 % (0-1); Eosinophil# 0.27 X10^3/uL; Eosinophils% 3.1 % (0-5); Hematocrit 44.1 % (40-54); Hemoglobin 14.3 g/dL (13.0-16.5); Lymphocyte % 36.7 % (19-41); Mean Corp Hgb Conc 32.4 g/dL (32-36); Mean Corpuscular Hgb 29.7 pg (27.0-32.0); Mean Corpuscular Volume 91.5 fL (80-94); Mean Platelet Vol. 8.9 fl (6.2-12.0); Monocyte# 0.72 X10^3/uL; Monocyte% 8.3 % (0-10); NRBC Flagged by Analyzer 0 % (0-5); Neutrophil # 4.44 X10^3/uL (2.7-7.7); Neutrophil % 50.8 % (47-70); Platelet Count 242 K/mm3 (150-450); RBC Distribution Width CV 14.9 % (11.6-14.6); RBC Distribution Width SD 49.6 fl (35.1-43.9); Red Blood Count 4.82 M/mm3 (4.6-6.2); White Blood Count 8.7 K/mm3 (4.4-11.0)
[2021-03-08 12:54] LABS: ALB/GLOB Ratio 1.3 RATIO (0.9-2.4); AST(SGOT) 19 U/L (15-37); Alanine Aminotransfer ALT/SGPT 25 U/L (16-61); Albumin, Serum 4.2 g/dL (3.2-5.0); Alkaline Phosphatase 109 U/L (45-117); Anion Gap 7 (5-15); BUN 13 mg/dL (7-18); Calcium,Total 9.1 mg/dL (8.5-10.1); Chloride 101 mmol/L (98-107); Creatinine, Serum 1.08 mg/dL (0.70-1.30); EST Glomerular Filtration Rate 70 mL/min (>60); Est Glom Filt Rate - Afr Amer 84 mL/min (>60); Globulin 3.2 g/dL (2.2-4.2); Glucose 105 mg/dL (74-106); Potassium 3.9 mmol/L (3.5-5.1); Protein, Total 7.4 g/dL (6.4-8.2); Sodium Level 138 mmol/L (136-145); Thyroid Stim Hormone (TSH) 2.24 uIU/mL (0.358-3.74)
[2021-03-11 12:44] LABS: Vitamin D,25 Hydroxy 22.3 ng/mL
== END ==
PROVIDERS: PCP Family Medicine Geriatric Medicine; Visit Provider Family Medicine Geriatric Medicine
DX: I10 Essential (primary) hypertension (principal); E55.9 Vitamin D deficiency, unspecified
CPT/HCPCS: 36415; 80053; 82306; 84443; 85025

== ENCOUNTER → 2021-05-24 16:35 | Outpatient (CLI) | payer MEDICARE, OTHER, SELFPAY ==
[2020-12-23 09:20] VITALS: BMI 29.0
[2021-03-25 09:37] VITALS: BMI 28.2
[2021-05-24 19:11] LABS: Anion Gap 5 (5-15); BUN 14 mg/dL (7-18); BUN/Creat Ratio 11.8 RATIO (10-20); Calcium,Total 9.1 mg/dL (8.5-10.1); Chloride 105 mmol/L (98-107); Creatinine, Serum 1.19 mg/dL (0.70-1.30); EST Glomerular Filtration Rate 62 mL/min (>60); Est Glom Filt Rate - Afr Amer 75 mL/min (>60); Glucose 120 mg/dL (74-106); Lactic Acid 0.9 mmol/L (0.4-1.9); Potassium 3.9 mmol/L (3.5-5.1); Sodium Level 139 mmol/L (136-145)
[2021-05-24 19:43] LABS: Absolute Lymphocyte Count 2.07 X10^3/uL (0.83-4.51); Absolute Neutrophil Count 5.4 X10^3/uL (2.0-7.7); Basophil# 0.03 X10^3/uL; Basophil% 0.4 % (0-1); Eosinophil# 0.22 X10^3/uL; Eosinophils% 2.6 % (0-5); Hematocrit 42.5 % (40-54); Hemoglobin 13.5 g/dL (13.0-16.5); Lymphocyte # 2.07 X10^3/ul (0.83-4.51); Lymphocyte % 24.8 % (19-41); Mean Corp Hgb Conc 31.8 g/dL (32-36); Mean Corpuscular Hgb 30.1 pg (27.0-32.0); Mean Corpuscular Volume 94.9 fL (80-94); Mean Platelet Vol. 9.3 fl (6.2-12.0); Monocyte% 7.2 % (0-10); NRBC Flagged by Analyzer 0 % (0-5); Neutrophil % 64.6 % (47-70); Platelet Count 198 K/mm3 (150-450); RBC Distribution Width CV 13.8 % (11.6-14.6); RBC Distribution Width SD 48.2 fl (35.1-43.9); Red Blood Count 4.48 M/mm3 (4.6-6.2); White Blood Count 8.4 K/mm3 (4.4-11.0)
== END ==
PROVIDERS: PCP Family Medicine Geriatric Medicine; Visit Provider Family Medicine Geriatric Medicine
DX: L03.119 Cellulitis of unspecified part of limb (principal)
CPT/HCPCS: 36415; 80048; 83605; 85025

== ENCOUNTER → 2021-05-25 08:20 | Outpatient (CLI) | payer MEDICARE, OTHER, SELFPAY ==
[2020-12-23 09:20] VITALS: BMI 29.0
[2021-03-25 09:37] VITALS: BMI 28.2
--- NOTE | 2021-05-25 08:24 | VDUE_ITS ---
Reason For Study: Edema Left Proximal Left jugular vein is spontaneous, widely patent, phasic, with no intraluminal echogenicity noted. Left subclavian vein is spontaneous, widely patent, phasic, with no intraluminal echogenicity noted. Left Arm Left axillary vein is spontaneous, patent, phasic, competent, compressible and demonstrates augmentation. Left brachial vein is compressible. Left cephalic vein is compressible. Left basilic vein is compressible. Left Lower Arm Left radial vein is compressible. Left ulnar vein is compressible. Patient Safety Prelim to Quinn. VL/Venous Duplex US, Unilateral Interpretation Summary Deep veins of the left upper extremity are patent and compressible segmentally. There is no evidence of deep vein thrombosis. The superficial veins of the left upper extremity, the basilic and cephalic veins, are patent and compressible. There is no evidence of left upper extremit y superficial thrombophlebitis involving the veins imaged. Ordering Physician: Douglas Ball Referring Physician: oDuglas Ball Chi Performed By: Nadiya Garcia RVT ?
== END ==
PROVIDERS: PCP Family Medicine Geriatric Medicine; Referring Provider Family Medicine Geriatric Medicine; Visit Provider Family Medicine Geriatric Medicine
DX: R60.0 Localized edema (principal)
CPT/HCPCS: 93971

== ENCOUNTER → 2021-06-24 11:12 | Outpatient (CLI) | payer MEDICARE, OTHER, SELFPAY ==
[2020-12-23 09:20] VITALS: BMI 29.0
== END ==
PROVIDERS: PCP Family Medicine Geriatric Medicine; Referring Provider Family Medicine Geriatric Medicine; Visit Provider Family Medicine Geriatric Medicine
DX: R68.83 Chills (without fever) (principal)
CPT/HCPCS: 87635; 87804; 87807; C9803; U0005; U0003

== ENCOUNTER → 2021-08-26 12:04 | Outpatient (CLI) | payer MEDICARE, OTHER, SELFPAY ==
[2020-12-23 09:20] VITALS: BMI 29.0
[2021-08-26 12:22] LABS: Absolute Lymphocyte Count 1.86 X10^3/uL (0.83-4.51); Absolute Neutrophil Count 4.2 X10^3/uL (2.0-7.7); Basophil# 0.04 X10^3/uL; Basophil% 0.6 % (0-1); Eosinophil# 0.64 X10^3/uL; Eosinophils% 8.8 % (0-5); Hematocrit 43.6 % (40-54); Hemoglobin 14.7 g/dL (13.0-16.5); Lymphocyte # 1.86 X10^3/ul (0.83-4.51); Lymphocyte % 25.6 % (19-41); Mean Corp Hgb Conc 33.7 g/dL (32-36); Mean Corpuscular Hgb 31.2 pg (27.0-32.0); Mean Corpuscular Volume 92.6 fL (80-94); Mean Platelet Vol. 8.8 fl (6.2-12.0); Monocyte# 0.47 X10^3/uL; Monocyte% 6.5 % (0-10); NRBC Flagged by Analyzer 0 % (0-5); Neutrophil # 4.23 X10^3/uL (2.7-7.7); Neutrophil % 58.2 % (47-70); Platelet Count 199 K/mm3 (150-450); RBC Distribution Width SD 51.8 fl (35.1-43.9); Red Blood Count 4.71 M/mm3 (4.6-6.2); White Blood Count 7.3 K/mm3 (4.4-11.0)
[2021-08-26 13:03] LABS: Vitamin D,25 Hydroxy 20.5 ng/mL
[2021-08-26 13:12] LABS: ALB/GLOB Ratio 1.1 RATIO (0.9-2.4); AST(SGOT) 18 U/L (15-37); Alanine Aminotransfer ALT/SGPT 26 U/L (16-61); Albumin, Serum 3.9 g/dL (3.2-5.0); Alkaline Phosphatase 111 U/L (45-117); Anion Gap 6 (5-15); BUN 12 mg/dL (7-18); BUN/Creat Ratio 10.9 RATIO (10-20); Calcium,Total 9.3 mg/dL (8.5-10.1); Chloride 102 mmol/L (98-107); EST Glomerular Filtration Rate 68 mL/min (>60); Est Glom Filt Rate - Afr Amer 82 mL/min (>60); Globulin 3.6 g/dL (2.2-4.2); Glucose 113 mg/dL (74-106); Potassium 4.3 mmol/L (3.5-5.1); Protein, Total 7.5 g/dL (6.4-8.2); Sodium Level 138 mmol/L (136-145)
== END ==
PROVIDERS: PCP Family Medicine Geriatric Medicine; Visit Provider Family Medicine Geriatric Medicine
DX: I10 Essential (primary) hypertension (principal); E55.9 Vitamin D deficiency, unspecified
CPT/HCPCS: 36415; 80053; 82306; 84443; 85025

== ENCOUNTER → 2021-09-30 12:41 | Outpatient (CLI) | payer MEDICARE, OTHER, SELFPAY ==
[2020-12-23 09:20] VITALS: BMI 29.0
--- NOTE | 2021-09-30 12:42 | ECHOD_ITS ---
Reason For Study: S/P CABG Procedure This was a 2D Doppler, Color Flow transthoracic echocardiogram. The study was technically difficult. Exam performed in department. Left Ventricle Normal LV size. Mild segmental systolic dysfunction (see wall motion). The estimated ejection fraction is 50 %. No evidence for diastolic dysfunction. Basal inferoseptal: Hypokinetic. Basal anteroseptal: Hypokinetic. Mid-inferoseptal : Hypokinetic. Mid-anteroseptal : Hypokinetic. Right Ventricle Normal RV size. Normal systolic function. Atria The left atrium is mildly enlarged. Normal right atrium. No doppler evidence for ASD. Mitral Valve There is no mitral annular calcification. Normal mitral valve. Mild (1+) mitral valve insufficiency. Tricuspid Valve Normal tricuspid valve. Mild to moderate (1-2+) tricuspid valve insufficiency. Right ventricular systolic pressure estimated to be 29 mmHg. Aortic Valve Trisinus/trileaflet aortic valve. Mild diffuse aortic valve thickening. Mild focal aortic valve calcification. Mild aortic stenosis. Trivial aortic valve insufficiency. Pulmonic Valve The pulmonic valve is not well visualized. Mild (1+) pulmonic valve insufficiency. Great Vessels Normal sized aortic root. Calcified aortic root. Pericardium/Pleural No pericardial effusion. MMode/2D Measurements & Calculations LVIDd: 3.3 cm IVSd: 1.0 cm LVOT diam: 2.0 cm LVIDs: 2.3 cm LVPWd: 0.97 cm LVOT area: 3.0 cm2 RVDd: 3.8 cm FS: 29.9 % Ao root diam: 3.9 cm LAV(MOD-bp): 38.0 ml LA A4 area: 17.1 cm2 LAV(MOD-bp) Indexed: 18.8 ml/m2 LAV(MOD-sp2): 34.5 ml LAV(MOD-sp4): 37.5 ml LA dimension(2D): 4.2 cm RA A4 area: 18.6 cm2 Doppler Measurements & Calculations MV E max jhon: 63.9 cm/sec Lat Peak E' Jhon: 5.2 cm/sec Med Peak E' Jhon: 5.1 cm/sec MV A max jhon: 110.7 cm/sec E/E' lat: 12.2 E/E' med: 12.5 MV E/A: 0.58 Ao V2 max: 172.1 cm/sec LV V1 max: 91.5 cm/sec PA V2 max: 112.5 cm/sec Ao max P.9 mmHg LV V1 max P.3 mmHg MIKE(V,D): 1.6 cm2 PI end-d jhon: 122.5 cm/sec TR max jhon: 255.0 cm/sec TR max P.0 mmHg ECHO/Echo Complete Interpretation Summary The study was technically difficult. Mild segmental systolic dysfunction (see wall motion). The estimated ejection fraction is 50 %. The left atrium is mildly enlarged. Mild (1+) mitral valve insufficiency. Mild to moderate (1-2+) tricuspid valve insufficiency. Mild aortic stenosis. Trivial aortic valve insufficiency. Mild (1+) pulmonic valve insufficiency. Calcified aortic root. Right ventricular systolic pressure estimated to be 29 mmHg. No evidence for diastolic dysfunction. Ordering Physician: Yasmani Curry Referring Physician: JACINDA HARRIS Performed By: Terra Hanson, RDROULA, RVT
== END ==
PROVIDERS: PCP Family Medicine Geriatric Medicine; Referring Provider Internal Medicine Cardiovascular Disease; Visit Provider Internal Medicine Cardiovascular Disease
DX: I25.10 Atherosclerotic heart disease of native coronary artery without angina pectoris (principal); E78.5 Hyperlipidemia, unspecified; I10 Essential (primary) hypertension; Z95.1 Presence of aortocoronary bypass graft; I25.2 Old myocardial infarction
CPT/HCPCS: 93306

== ENCOUNTER → 2021-10-14 11:43 | Outpatient (CLI) | payer MEDICARE, OTHER, SELFPAY ==
[2020-12-23 09:20] VITALS: BMI 29.0
--- NOTE | 2021-10-14 11:53 | RAD_ITS ---
INDICATION: CHF EXAMINATION/TECHNIQUE: X-RAY - XR Chest 2 Views COMPARISON: 02/04/2021. FINDINGS: LINES/DEVICES: Sternal wires are seen in position. LUNGS: Peribronchial cuffing bilateral hilar prominence is seen, prominence of the bronchovascular interstitial lung markings visualized with linear streaky opacity visualized most prominent in the lower lung khan consistent with subsegmental atelectatic streaks or scarring that demonstrate no significant change in comparison to the prior study. The costophrenic angles are unremarkable bilaterally, evidence of fluid levels. Biapical prominence suggestive of COPD changes. No evidence of pneumothorax is seen. No consolidation, edema or effusion. No pneumothorax. MEDIASTINUM AND CARDIOVASCULAR STRUCTURES: Cardiac silhouette not enlarged. Atherosclerotic calcifications visualized in the aortic arch. BONES AND SOFT TISSUES: Degenerative bone changes seen. RAD/Chest PA and Lateral IMPRESSION: Bronchovascular prominence and peribronchial cuffing demonstrates no change. No radiographic evidence of acute cardiopulmonary disease. Electronically Signed: Simon Berrios MD at 16:22 EST Tel , Service support ,
[2021-10-14 12:49] LABS: Absolute Lymphocyte Count 2.33 X10^3/uL (0.83-4.51); Absolute Neutrophil Count 4.4 X10^3/uL (2.0-7.7); Basophil# 0.06 X10^3/uL; Basophil% 0.7 % (0-1); Eosinophil# 0.64 X10^3/uL; Eosinophils% 7.8 % (0-5); Hematocrit 42.5 % (40-54); Lymphocyte # 2.33 X10^3/ul (0.83-4.51); Lymphocyte % 28.6 % (19-41); Mean Corp Hgb Conc 32.9 g/dL (32-36); Mean Corpuscular Hgb 30.8 pg (27.0-32.0); Mean Corpuscular Volume 93.6 fL (80-94); Mean Platelet Vol. 8.7 fl (6.2-12.0); Monocyte# 0.65 X10^3/uL; NRBC Flagged by Analyzer 0 % (0-5); Neutrophil # 4.44 X10^3/uL (2.7-7.7); Neutrophil % 54.4 % (47-70); Platelet Count 212 K/mm3 (150-450); RBC Distribution Width CV 14.3 % (11.6-14.6); RBC Distribution Width SD 48.2 fl (35.1-43.9); Red Blood Count 4.54 M/mm3 (4.6-6.2); White Blood Count 8.2 K/mm3 (4.4-11.0)
[2021-10-14 13:04] LABS: Anion Gap 6 (5-15); BUN 18 mg/dL (7-18); BUN/Creat Ratio 16.7 RATIO (10-20); Calcium,Total 9.2 mg/dL (8.5-10.1); Chloride 105 mmol/L (98-107); Creatinine, Serum 1.08 mg/dL (0.70-1.30); EST Glomerular Filtration Rate 70 mL/min (>60); Est Glom Filt Rate - Afr Amer 84 mL/min (>60); Glucose 107 mg/dL (74-106); Potassium 3.9 mmol/L (3.5-5.1); Sodium Level 141 mmol/L (136-145)
[2021-10-14 13:17] LABS: BNP,B-Type NATRIURETIC PEPTIDE 70.1 pg/mL (0-100)
== END ==
LOC: POLAB3 11:45 → RAD 11:47
PROVIDERS: PCP Family Medicine Geriatric Medicine; Visit Provider Family Medicine Geriatric Medicine
DX: I50.23 Acute on chronic systolic (congestive) heart failure (principal); R68.83 Chills (without fever)
CPT/HCPCS: 36415; 71046; 80048; 83880; 85025; 87635; 87804; 87807; C9803; U0003; U0005

== ENCOUNTER 2021-10-19 14:26 | Outpatient (CLI) | payer MEDICARE, OTHER, SELFPAY ==
[2020-12-23 09:20] VITALS: BMI 29.0
[2021-10-19 16:48] LABS: Anion Gap 9 (5-15); BUN 26 mg/dL (7-18); BUN/Creat Ratio 21.8 RATIO (10-20); Calcium,Total 9.2 mg/dL (8.5-10.1); Chloride 100 mmol/L (98-107); Creatinine, Serum 1.19 mg/dL (0.70-1.30); EST Glomerular Filtration Rate 62 mL/min (>60); Est Glom Filt Rate - Afr Amer 75 mL/min (>60); Glucose 186 mg/dL (74-106); Potassium 4.1 mmol/L (3.5-5.1); Sodium Level 138 mmol/L (136-145)
== END 2021-10-19 23:59 | disposition short-term general hospital (02) ==
LOC: POLAB3 14:28
PROVIDERS: PCP Family Medicine Geriatric Medicine; Visit Provider Family Medicine Geriatric Medicine
DX: E87.6 Hypokalemia (principal)
CPT/HCPCS: 36415; 80048

== ENCOUNTER 2021-10-27 09:52 | Outpatient (CLI) | payer MEDICARE, OTHER, SELFPAY ==
[2020-12-23 09:20] VITALS: BMI 29.0
[2021-10-27 12:52] LABS: Anion Gap 11 (5-15); BUN 21 mg/dL (7-18); BUN/Creat Ratio 16.9 RATIO (10-20); Calcium,Total 9.6 mg/dL (8.5-10.1); Chloride 99 mmol/L (98-107); Creatinine, Serum 1.24 mg/dL (0.70-1.30); EST Glomerular Filtration Rate 59 mL/min (>60); Est Glom Filt Rate - Afr Amer 72 mL/min (>60); Glucose 113 mg/dL (74-106); Potassium 3.7 mmol/L (3.5-5.1); Sodium Level 138 mmol/L (136-145)
== END 2021-10-27 23:59 | disposition short-term general hospital (02) ==
LOC: POLAB3 09:53
PROVIDERS: PCP Family Medicine Geriatric Medicine; Visit Provider Family Medicine Geriatric Medicine
DX: R68.89 Other general symptoms and signs (principal)
CPT/HCPCS: 36415; 80048

== ENCOUNTER 2021-11-02 09:09 | Outpatient (CLI) | payer MEDICARE, OTHER, SELFPAY ==
[2020-12-23 09:20] VITALS: BMI 29.0
--- NOTE | 2021-11-02 12:59 | PFTCOMP ---
COMPLETE PULMONARY FUNCTION TEST INTERPRETATION Brief HPI: Patient is an 81 year old male, currently under the care of Dr. Ball, who presents to [facility] for complete pulmonary function tests secondary to diagnosis of dyspnea. Respiratory therapist reports good effort and reproducible results. Interpretation: Forced expiration spirometry shows a mild large airways obstructive ventilatory defect with an FEV1 of 76% predicted. There is a significant bronchodilator response in FEV1 by strict ATS criteria. Spirograms are of good quality and plateau slowly, indicating slowly emptying areas of the lungs. The respiratory flow volume loop shows decreased expiratory flow rates at all lung volumes consistent with airway obstruction. Lung volumes by body plethysmography show a normal total lung capacity at 6.61 L, 113% predicted. All other lung volumes are within normal limits. Diffusion capacity by carbon monoxide is normal at 81% predicted. The airway resistance is normal. No previous pulmonary function tests were available for review. Impression: Partially reversible mild large airways obstructive ventilatory defect
== END 2021-11-02 23:59 | disposition short-term general hospital (02) ==
LOC: PSN 09:10
PROVIDERS: PCP Family Medicine Geriatric Medicine; Referring Provider Family Medicine Geriatric Medicine; Visit Provider Family Medicine Geriatric Medicine
DX: R06.02 Shortness of breath (principal)
CPT/HCPCS: 94060; 94726; 94729

== ENCOUNTER → 2022-03-10 | Outpatient (CLI) | payer MEDICARE, OTHER, SELFPAY ==
[2020-12-23 09:20] VITALS: BMI 29.0
[2022-03-10 12:13] LABS: Absolute Lymphocyte Count 2.98 X10^3/uL (0.83-4.51); Absolute Neutrophil Count 3.8 X10^3/uL (2.0-7.7); Basophil# 0.04 X10^3/uL; Basophil% 0.5 % (0-1); Eosinophil# 0.34 X10^3/uL; Eosinophils% 4.3 % (0-5); Hematocrit 41.2 % (40-54); Hemoglobin 13.6 g/dL (13.0-16.5); Lymphocyte # 2.98 X10^3/ul (0.83-4.51); Lymphocyte % 37.7 % (19-41); Mean Corpuscular Hgb 31.1 pg (27.0-32.0); Mean Corpuscular Volume 94.1 fL (80-94); Mean Platelet Vol. 8.8 fl (6.2-12.0); Monocyte% 8.9 % (0-10); NRBC Flagged by Analyzer 0 % (0-5); Neutrophil # 3.82 X10^3/uL (2.7-7.7); Neutrophil % 48.3 % (47-70); Platelet Count 195 K/mm3 (150-450); RBC Distribution Width CV 14.3 % (11.6-14.6); RBC Distribution Width SD 49.2 fl (35.1-43.9); Red Blood Count 4.38 M/mm3 (4.6-6.2); White Blood Count 7.9 K/mm3 (4.4-11.0)
[2022-03-10 12:26] LABS: Vitamin D,25 Hydroxy 32.9 ng/mL
[2022-03-10 12:50] LABS: ALB/GLOB Ratio 1.3 RATIO (0.9-2.4); AST(SGOT) 20 U/L (15-37); Alanine Aminotransfer ALT/SGPT 29 U/L (16-61); Albumin, Serum 4.1 g/dL (3.2-5.0); Alkaline Phosphatase 110 U/L (45-117); Anion Gap 8 (5-15); BUN 16 mg/dL (7-18); BUN/Creat Ratio 12.1 RATIO (10-20); Chloride 104 mmol/L (98-107); Creatinine, Serum 1.32 mg/dL (0.70-1.30); EST Glomerular Filtration Rate 55 mL/min (>60); Est Glom Filt Rate - Afr Amer 67 mL/min (>60); Globulin 3.2 g/dL (2.2-4.2); Glucose 135 mg/dL (74-106); Potassium 3.8 mmol/L (3.5-5.1); Protein, Total 7.3 g/dL (6.4-8.2); Sodium Level 139 mmol/L (136-145); Thyroid Stim Hormone (TSH) 1.71 uIU/mL (0.358-3.74)
== END | disposition home or self-care (01) ==
LOC: POLAB3 09:22
PROVIDERS: PCP Family Medicine Geriatric Medicine; Visit Provider Family Medicine Geriatric Medicine
DX: I10 Essential (primary) hypertension (principal); E55.9 Vitamin D deficiency, unspecified
CPT/HCPCS: 36415; 80053; 82306; 84443; 85025

== ENCOUNTER 2022-09-15 10:56 | Outpatient (CLI) | payer MEDICARE, OTHER, SELFPAY ==
[2020-12-23 09:20] VITALS: BMI 29.0
[2022-09-15 12:36] LABS: Absolute Lymphocyte Count 3.14 X10^3/uL (0.83-4.51); Absolute Neutrophil Count 3.6 X10^3/uL (2.0-7.7); Basophil# 0.04 X10^3/uL; Basophil% 0.5 % (0-1); Eosinophil# 0.21 X10^3/uL; Eosinophils% 2.7 % (0-5); Hematocrit 42.2 % (40-54); Hemoglobin 13.4 g/dL (13.0-16.5); Lymphocyte # 3.14 X10^3/ul (0.83-4.51); Lymphocyte % 40.9 % (19-41); Mean Corp Hgb Conc 31.8 g/dL (32-36); Mean Corpuscular Hgb 29.5 pg (27.0-32.0); Mean Platelet Vol. 9.3 fl (6.2-12.0); Monocyte# 0.65 X10^3/uL; Monocyte% 8.5 % (0-10); NRBC Flagged by Analyzer 0.3 % (0-5); Platelet Count 201 K/mm3 (150-450); RBC Distribution Width CV 14.5 % (11.6-14.6); RBC Distribution Width SD 49.3 fl (35.1-43.9); Red Blood Count 4.54 M/mm3 (4.6-6.2); White Blood Count 7.7 K/mm3 (4.4-11.0)
[2022-09-15 12:52] LABS: Vitamin D,25 Hydroxy 22.3 ng/mL
[2022-09-15 13:14] LABS: ALB/GLOB Ratio 1.2 RATIO (0.9-2.4); AST(SGOT) 18 U/L (15-37); Alanine Aminotransfer ALT/SGPT 31 U/L (16-61); Albumin, Serum 3.7 g/dL (3.2-5.0); Alkaline Phosphatase 107 U/L (45-117); Anion Gap 7 (5-15); BUN 13 mg/dL (7-18); BUN/Creat Ratio 12.1 RATIO (10-20); Calcium,Total 8.6 mg/dL (8.5-10.1); Chloride 107 mmol/L (98-107); Creatinine, Serum 1.07 mg/dL (0.70-1.30); EST Glomerular Filtration Rate 70 mL/min (>60); Est Glom Filt Rate - Afr Amer 85 mL/min (>60); Glucose 96 mg/dL (74-106); Protein, Total 6.7 g/dL (6.4-8.2); Sodium Level 140 mmol/L (136-145); Thyroid Stim Hormone (TSH) 1.09 uIU/mL (0.358-3.74)
== END 2022-09-15 23:59 | disposition home or self-care (01) ==
LOC: POLAB3 10:58
PROVIDERS: PCP Family Medicine Geriatric Medicine; Visit Provider Family Medicine Geriatric Medicine
DX: R53.83 Other fatigue (principal); E55.9 Vitamin D deficiency, unspecified
CPT/HCPCS: 36415; 80053; 82306; 84443; 85025

== ENCOUNTER → 2023-03-15 | Outpatient (CLI) | payer MEDICARE, OTHER, SELFPAY ==
[2020-12-23 09:20] VITALS: BMI 29.0
[2023-03-15 15:30] LABS: Absolute Lymphocyte Count 3.22 X10^3/uL (0.83-4.51); Absolute Neutrophil Count 5.8 X10^3/uL (2.0-7.7); Basophil# 0.04 X10^3/uL; Basophil% 0.4 % (0-1); Eosinophil# 0.37 X10^3/uL; Eosinophils% 3.6 % (0-5); Hematocrit 39.2 % (40-54); Hemoglobin 12.9 g/dL (13.0-16.5); Lymphocyte # 3.22 X10^3/ul (0.83-4.51); Lymphocyte % 31.4 % (19-41); Mean Corp Hgb Conc 32.9 g/dL (32-36); Mean Corpuscular Hgb 30.9 pg (27.0-32.0); Mean Platelet Vol. 9.3 fl (6.2-12.0); Monocyte# 0.77 X10^3/uL; Monocyte% 7.5 % (0-10); NRBC Flagged by Analyzer 0 % (0-5); Neutrophil # 5.84 X10^3/uL (2.7-7.7); Neutrophil % 56.8 % (47-70); Platelet Count 193 K/mm3 (150-450); RBC Distribution Width CV 14.2 % (11.6-14.6); RBC Distribution Width SD 48.7 fl (35.1-43.9); Red Blood Count 4.17 M/mm3 (4.6-6.2); White Blood Count 10.3 K/mm3 (4.4-11.0)
[2023-03-15 16:17] LABS: AST(SGOT) 14 U/L (15-37); Alanine Aminotransfer ALT/SGPT 22 U/L (16-61); Albumin, Serum 3.7 g/dL (3.2-5.0); Alkaline Phosphatase 130 U/L (45-117); Anion Gap 8 (5-15); BUN 12 mg/dL (7-18); BUN/Creat Ratio 10.1 RATIO (10-20); Calcium,Total 9.4 mg/dL (8.5-10.1); Chloride 104 mmol/L (98-107); Creatinine, Serum 1.19 mg/dL (0.70-1.30); EST Glomerular Filtration Rate 62 mL/min (>60); Est Glom Filt Rate - Afr Amer 75 mL/min (>60); Globulin 3.6 g/dL (2.2-4.2); Glucose 100 mg/dL (74-106); Potassium 4.4 mmol/L (3.5-5.1); Protein, Total 7.3 g/dL (6.4-8.2); Sodium Level 138 mmol/L (136-145); Thyroid Stim Hormone (TSH) 1.36 uIU/mL (0.358-3.74)
== END | disposition home or self-care (01) ==
LOC: POLAB3 13:28
PROVIDERS: PCP Family Medicine Geriatric Medicine; Visit Provider Family Medicine Geriatric Medicine
DX: I10 Essential (primary) hypertension (principal); E55.9 Vitamin D deficiency, unspecified
CPT/HCPCS: 36415; 80053; 82306; 84443; 85025

== ENCOUNTER → 2023-09-11 | Outpatient (CLI) | payer MEDICARE, OTHER, SELFPAY ==
[2020-12-23 09:20] VITALS: BMI 29.0
[2023-09-11 13:38] LABS: Absolute Lymphocyte Count 6.99 X10^3/uL (0.83-4.51); Absolute Neutrophil Count 3.5 X10^3/uL (2.0-7.7); Basophil# 0.07 X10^3/uL; Basophil% 0.6 % (0-1); Eosinophil# 0.41 X10^3/uL; Eosinophils% 3.5 % (0-5); Hematocrit 45.5 % (40-54); Lymphocyte # 6.99 X10^3/ul (0.83-4.51); Lymphocyte % 59.6 % (19-41); Mean Corpuscular Hgb 31.6 pg (27.0-32.0); Mean Platelet Vol. 9.4 fl (6.2-12.0); Monocyte# 0.74 X10^3/uL; Monocyte% 6.3 % (0-10); NRBC Flagged by Analyzer 0 % (0-5); Neutrophil # 3.48 X10^3/uL (2.7-7.7); Neutrophil % 29.7 % (47-70); POSITIVE DIFFERENTIAL YES; Platelet Count 196 K/mm3 (150-450); RBC Distribution Width CV 14.1 % (11.6-14.6); RBC Distribution Width SD 49.3 fl (35.1-43.9); Red Blood Count 4.74 M/mm3 (4.6-6.2); White Blood Count 11.7 K/mm3 (4.4-11.0)
[2023-09-11 13:42] LABS: Differential Indicated SCAN CRITERIA MET
[2023-09-11 13:56] LABS: Reactive Lymphocyte 1+
[2023-09-11 13:57] LABS: Vitamin D,25 Hydroxy 34.4 ng/mL
[2023-09-11 14:12] LABS: ALB/GLOB Ratio 1.3 RATIO (0.9-2.4); AST(SGOT) 19 U/L (15-37); Alanine Aminotransfer ALT/SGPT 26 U/L (16-61); Albumin, Serum 4.4 g/dL (3.2-5.0); Alkaline Phosphatase 110 U/L (45-117); Anion Gap 9 (5-15); BUN 11 mg/dL (7-18); BUN/Creat Ratio 10.3 RATIO (10-20); Calcium,Total 9.1 mg/dL (8.5-10.1); Chloride 106 mmol/L (98-107); Creatinine, Serum 1.07 mg/dL (0.70-1.30); EST Glomerular Filtration Rate 70 mL/min (>60); Est Glom Filt Rate - Afr Amer 85 mL/min (>60); Globulin 3.3 g/dL (2.2-4.2); Glucose 96 mg/dL (74-106); Protein, Total 7.7 g/dL (6.4-8.2); Sodium Level 141 mmol/L (136-145); Thyroid Stim Hormone (TSH) 4.97 uIU/mL (0.358-3.74)
== END | disposition home or self-care (01) ==
LOC: POLAB3 10:25
PROVIDERS: PCP Family Medicine Geriatric Medicine; Visit Provider Family Medicine Geriatric Medicine
DX: I10 Essential (primary) hypertension (principal); E55.9 Vitamin D deficiency, unspecified
CPT/HCPCS: 36415; 80053; 82306; 84443; 85025

== ENCOUNTER → 2024-03-14 | Outpatient (CLI) | payer MEDICARE, OTHER, SELFPAY ==
[2020-12-23 09:20] VITALS: BMI 29.0
--- NOTE | 2024-03-14 14:55 | RAD_ITS ---
INDICATION: Pain in right hand EXAMINATION/TECHNIQUE: X-RAY - RIGHT XR Hand Min 3 Views 3 VIEWS COMPARISON: No relevant prior comparison study available FINDINGS: SOFT TISSUES: No soft tissue swelling or gas. Vascular calcifications. BONES/JOINTS: No acute fracture or subluxation.. Normal alignment. Severe degenerative arthrosis of the trapezium first metacarpal joint. Narrowing of the third metacarpophalangeal joint with defects in the medial aspect of the third and fourth metacarpal heads. Erosive changes are doubtful. Narrowing of the distal interphalangeal joints particularly of the second and third fingers. No sclerotic or destructive changes observed. RAD/Hand Min 3 Views IMPRESSION: Arthritic changes as described above consistent with osteoarthritis. Rheumatoid arthritis is doubtful. Electronically Signed: Brigido Archuleta MD at 10:38 EDT ,
[2024-03-14 15:36] LABS: Absolute Lymphocyte Count 2.88 X10^3/uL (0.83-4.51); Absolute Neutrophil Count 6.8 X10^3/uL (2.0-7.7); Basophil# 0.03 X10^3/uL; Basophil% 0.3 % (0-1); Eosinophil# 0.04 X10^3/uL; Eosinophils% 0.4 % (0-5); Hematocrit 40.4 % (40-54); Hemoglobin 13.4 g/dL (13.0-16.5); Lymphocyte # 2.88 X10^3/ul (0.83-4.51); Lymphocyte % 27.5 % (19-41); Mean Corp Hgb Conc 33.2 g/dL (32-36); Mean Corpuscular Hgb 31.5 pg (27.0-32.0); Mean Corpuscular Volume 94.8 fL (80-94); Mean Platelet Vol. 9.2 fl (6.2-12.0); Monocyte# 0.71 X10^3/uL; Monocyte% 6.8 % (0-10); NRBC Flagged by Analyzer 0 % (0-5); Neutrophil % 64.8 % (47-70); Platelet Count 150 K/mm3 (150-450); RBC Distribution Width CV 14.3 % (11.6-14.6); RBC Distribution Width SD 49.7 fl (35.1-43.9); Red Blood Count 4.26 M/mm3 (4.6-6.2); White Blood Count 10.5 K/mm3 (4.4-11.0)
[2024-03-14 15:56] LABS: Erythrocyte Sedimentation Rate 5 mm/hr (0-20)
[2024-03-14 16:08] LABS: ALB/GLOB Ratio 1.2 RATIO (0.9-2.4); AST(SGOT) 18 U/L (15-37); Alanine Aminotransfer ALT/SGPT 22 U/L (16-61); Alkaline Phosphatase 120 U/L (45-117); Anion Gap 6 (5-15); BUN 12 mg/dL (7-18); BUN/Creat Ratio 12.3 RATIO (10-20); Calcium,Total 9.4 mg/dL (8.5-10.1); Chloride 106 mmol/L (98-107); Creatinine, Serum 0.98 mg/dL (0.70-1.30); EST Glomerular Filtration Rate 78 mL/min (>60); Est Glom Filt Rate - Afr Amer 94 mL/min (>60); Globulin 3.3 g/dL (2.2-4.2); Glucose 114 mg/dL (74-106); Potassium 3.8 mmol/L (3.5-5.1); Protein, Total 7.3 g/dL (6.4-8.2); Sodium Level 138 mmol/L (136-145)
== END | disposition home or self-care (01) ==
LOC: RAD 14:49
PROVIDERS: PCP Family Medicine Geriatric Medicine; Referring Provider Family Medicine Geriatric Medicine; Visit Provider Family Medicine Geriatric Medicine
DX: E78.5 Hyperlipidemia, unspecified (principal); I10 Essential (primary) hypertension; M79.641 Pain in right hand
CPT/HCPCS: 36415; 73130; 80053; 85025; 85652; 86140

== ENCOUNTER → 2024-03-18 | Outpatient (CLI) | payer MEDICARE, OTHER, SELFPAY ==
[2020-12-23 09:20] VITALS: BMI 29.0
[2024-03-18 11:49] LABS: Erythrocyte Sedimentation Rate 13 mm/hr (0-20)
[2024-03-18 11:51] LABS: Absolute Neutrophil Count 3.4 X10^3/uL (2.0-7.7); Basophil# 0.04 X10^3/uL; Basophil% 0.6 % (0-1); Eosinophil# 0.14 X10^3/uL; Hematocrit 39.4 % (40-54); Hemoglobin 13.1 g/dL (13.0-16.5); Lymphocyte % 40.7 % (19-41); Mean Corp Hgb Conc 33.2 g/dL (32-36); Mean Corpuscular Volume 93.4 fL (80-94); Mean Platelet Vol. 9.1 fl (6.2-12.0); Monocyte# 0.46 X10^3/uL; Monocyte% 6.7 % (0-10); NRBC Flagged by Analyzer 0 % (0-5); Neutrophil # 3.43 X10^3/uL (2.7-7.7); Neutrophil % 49.9 % (47-70); Platelet Count 177 K/mm3 (150-450); RBC Distribution Width CV 14.1 % (11.6-14.6); RBC Distribution Width SD 48.3 fl (35.1-43.9); Red Blood Count 4.22 M/mm3 (4.6-6.2); White Blood Count 6.9 K/mm3 (4.4-11.0)
[2024-03-18 12:21] LABS: Vitamin D,25 Hydroxy 31.2 ng/mL
[2024-03-18 14:09] LABS: AST(SGOT) 20 U/L (15-37); Alanine Aminotransfer ALT/SGPT 27 U/L (16-61); Albumin, Serum 3.5 g/dL (3.2-5.0); Alkaline Phosphatase 110 U/L (45-117); Anion Gap 8 (5-15); BUN 11 mg/dL (7-18); BUN/Creat Ratio 12.9 RATIO (10-20); Calcium,Total 9.2 mg/dL (8.5-10.1); Chloride 107 mmol/L (98-107); Creatinine, Serum 0.85 mg/dL (0.70-1.30); EST Glomerular Filtration Rate 91 mL/min (>60); Est Glom Filt Rate - Afr Amer 110 mL/min (>60); Globulin 3.4 g/dL (2.2-4.2); Glucose 110 mg/dL (74-106); Potassium 3.9 mmol/L (3.5-5.1); Protein, Total 6.9 g/dL (6.4-8.2); Sodium Level 137 mmol/L (136-145); Thyroid Stim Hormone (TSH) 1.55 uIU/mL (0.358-3.74)
== END | disposition home or self-care (01) ==
LOC: LAB 10:53
PROVIDERS: PCP Family Medicine Geriatric Medicine; Referring Provider Family Medicine Geriatric Medicine; Visit Provider Family Medicine Geriatric Medicine
DX: I10 Essential (primary) hypertension (principal); E55.9 Vitamin D deficiency, unspecified; E78.5 Hyperlipidemia, unspecified
CPT/HCPCS: 36415; 80053; 82306; 84443; 85025; 85652; 86140

== ENCOUNTER → 2024-09-18 | Outpatient (CLI) | payer MEDICARE, OTHER, SELFPAY ==
[2020-12-23 09:20] VITALS: BMI 29.0
[2024-09-18 10:42] LABS: Absolute Lymphocyte Count 6.17 X10^3/uL (0.83-4.51); Absolute Neutrophil Count 3.1 X10^3/uL (2.0-7.7); Basophil# 0.07 X10^3/uL; Basophil% 0.7 % (0-1); Eosinophil# 0.44 X10^3/uL; Eosinophils% 4.2 % (0-5); Hematocrit 38.6 % (40-54); Hemoglobin 12.7 g/dL (13.0-16.5); Lymphocyte # 6.17 X10^3/ul (0.83-4.51); Lymphocyte % 58.9 % (19-41); Mean Corp Hgb Conc 32.9 g/dL (32-36); Mean Corpuscular Hgb 30.2 pg (27.0-32.0); Mean Corpuscular Volume 91.9 fL (80-94); Mean Platelet Vol. 9.3 fl (6.2-12.0); Monocyte# 0.65 X10^3/uL; Monocyte% 6.2 % (0-10); NRBC Flagged by Analyzer 0.3 % (0-5); Neutrophil # 3.12 X10^3/uL (2.7-7.7); Neutrophil % 29.8 % (47-70); POSITIVE DIFFERENTIAL YES; POSITIVE MORPHOLOGY YES; Platelet Count 171 K/mm3 (150-450); RBC Distribution Width CV 13.9 % (11.6-14.6); RBC Distribution Width SD 46.7 fl (35.1-43.9); White Blood Count 10.5 K/mm3 (4.4-11.0)
[2024-09-18 10:56] LABS: Differential Indicated SCAN CRITERIA MET
[2024-09-18 14:16] LABS: Vitamin D,25 Hydroxy 31.2 ng/mL
[2024-09-18 19:20] LABS: ALB/GLOB Ratio 1.4 RATIO (0.9-2.4); AST(SGOT) 20 U/L (15-37); Alanine Aminotransfer ALT/SGPT 24 U/L (16-61); Albumin, Serum 4.1 g/dL (3.2-5.0); Alkaline Phosphatase 125 U/L (45-117); Anion Gap 6 (5-15); BUN 19 mg/dL (7-18); BUN/Creat Ratio 16.5 RATIO (10-20); Calcium,Total 9.1 mg/dL (8.5-10.1); Chloride 107 mmol/L (98-107); Creatinine, Serum 1.15 mg/dL (0.70-1.30); EST Glomerular Filtration Rate 64 mL/min (>60); Est Glom Filt Rate - Afr Amer 78 mL/min (>60); Glucose 109 mg/dL (74-106); Protein, Total 7.1 g/dL (6.4-8.2); Sodium Level 140 mmol/L (136-145)
== END | disposition home or self-care (01) ==
PROVIDERS: PCP Family Medicine Geriatric Medicine; Visit Provider Family Medicine Geriatric Medicine
DX: I10 Essential (primary) hypertension (principal); E55.9 Vitamin D deficiency, unspecified
CPT/HCPCS: 36415; 80053; 82306; 84443; 85025

== ENCOUNTER 2025-03-14 10:12 | Emergency (ER) | payer MEDICARE, OTHER, SELFPAY ==
[2020-12-23 09:20] VITALS: BMI 29.0
[2025-03-14 10:13] VITALS: BP 164/76; PULSE 93; RESP 17; TEMP 36.5; O2SAT 96; BMI 27.6
--- NOTE | 2025-03-14 10:25 | EX.ED.DYSGE1 ---
HPI History of Present Illness Chief Complaint: Abscess Informant: patient Narrative Narrative: 84-year-old male has had a mass on his right chest wall/breast for the past 3 weeks. He states it started out as a small bump/pimple, was sore, but the pain went away and now he has some occasional bleeding but no pain. He has had no other discharge. He denies any systemic symptoms or fever/chills. He states he was going to wait till he saw his doctor, he has a scheduled appointment in a couple weeks, but his son saw it and brought him to the ER to have it evaluated. [facility] Medical History (Updated 03/14/25 @ 12:[address] Kb Yañez MD) COPD (chronic obstructive pulmonary disease) Essential hypertension Hyperlipidemia Open wound of left thigh Sepsis Abscess or cellulitis of thigh Atherosclerotic heart disease of [place] coronary artery without angina pectoris Non-rheumatic mitral regurgitation Pulmonary hypertension NSTEMI (non-ST elevated myocardial infarction) CHF (congestive heart failure) Home Medications ?Medication ?Instructions ?Recorded ?Last Taken ?Type tamsulosin 0.4 mg capsule 0.4 mg PO DAILY PROSTATE 11/30/20 03/13/25 History albuterol sulfate 2.5 mg/3 mL 2.5 mg inhalation Q6H PRN 09/23/21 Unknown History (0.083 %) solution for nebulization shortness of breath or wheezing aspirin 81 mg tablet,delayed 81 mg PO DAILY #1 TAB 09/23/21 03/13/25 Rx release furosemide 40 mg tablet 40 mg PO DAILY 04/04/22 03/13/25 History metoprolol succinate 100 mg 50 mg PO BID 09/28/22 03/14/25 History tablet,extended release 24 hr amlodipine 10 mg tablet 5 mg PO DAILY BP 12/21/23 03/13/25 History levothyroxine 125 mcg tablet 125 mcg PO DAILY 12/21/23 03/13/25 History atorvastatin 40 mg tablet 40 mg PO QHS for cholesterol #90 05/22/24 03/13/25 Rx TABLETS magnesium oxide 400 mg (241.3 mg 400 mg PO BID 03/14/25 03/13/25 History magnesium) tablet potassium chloride 10 mEq 10 meq PO DAILY 03/14/25 03/13/25 History capsule,extended release Allergy/AdvReac Type Severity Reaction Status Date / Time amoxicillin (From Augmentin) Allergy Rash Verified 03/14/25 10:15 clavulanic acid (From Allergy Rash Verified 03/14/25 10:15 Augmentin) Opioids - Morphine Analogues AdvReac Low blood Verified 03/14/25 10:15 pressure Family History Grandmother CAD (coronary artery disease) Father CAD (coronary artery disease) Surgical History History of external ear surgery History of coronary artery bypass surgery (~11/25/20) Social History Smoking Status: Former smoker alcohol intake: never substance use type: does not use caffeine: Yes Type: coffee Number of servings: 4 ROS ROS ED Constitutional Constitutional ED: Denies chills or fever(s) Eyes Eyes: Denies change in vision or diplopia ENT ENT ED: Denies rhinorrhea or sore throat Cardiovascular Cardiovascular: Denies chest pain or palpitations Respiratory/Chest Respiratory/Chest: Denies cough or dyspnea Gastrointestinal Gastrointestinal: Denies abdominal pain, diarrhea, nausea or vomiting Genitourinary Genitourinary ED: Denies dysuria or hematuria Musculoskeletal Musculoskeletal: Denies back pain or neck pain Integumentary Denies abscess or rash Neurologic Neurologic: Denies headache(s), paresthesias or weakness Psychiatric Psychiatric: Denies anxiety or suicidal thoughts EXAM Physical Exam Const Vital Signs: 03/14/25 10:13 03/14/25 11:15 03/14/25 12:12 Temperature 97.7 F L 97.7 F L Temperature Source Temporal Oral Pulse Rate 93 87 Respiratory Rate 17 20 H Blood Pressure 164/76 H 114/65 134/79 H Blood Pressure Mean 105 81 97 Pulse Ox 96 93 Oxygen Delivery Method Room Air Positive well nourished and well developed General Appearance ED: well developed and NAD HEENT Reports moist mucous membranes normocephalic and atraumatic Eyes PERRL and EOMs intact bilaterally Neck full ROM and supple Chest Wall Chest Narrative: 4 cm in diameter exophytic mass right breast just to the right and superior to the nipple/areola, does not necessarily seem to involve them and there is no discharge from the nipple. There is some blood on the bandage but no active bleeding from this. I can move around and palpate the base of it, there is no pain or tenderness with this. It is erythematous. Resp normal respiratory effort and clear to auscultation bilaterally Cardio regular rate, regular rhythm and no murmurs Back/Spine no CVA tenderness General Back: other FROM Extremity normal to inspection General Extremety ED: Negative for edema General Extremity: Negative for edema Neuro oriented x3, CN's II-XII intact bilaterally and no sensory deficits noted Sensorium / Orientation: awake and alert Motor Exam: strength 5/5 throughout Skin Skin Narrative: Right breast exophytic mass see above. No other rashes or lesions. MDM MDM MDM Narrative Medical decision making narrative: This appears more likely to be some type of mass rather than an abscess. I discussed with surgery Dr. Mojica who evaluated the patient in the ER, he is in agreement and did a couple biopsies, and confirms as a result it is not an abscess. He will see the patient is an outpatient after biopsies come back and we will be in touch with the patient. Management Discussion w/another healthcare provider: [employer] (Surgery Dr. Mojica) Discharge Plan Triage Chief Complaint: Abscess ED Provider: Kb Yañez Dx/Rx/DC Orders Clinical Impression: Mass of chest wall, right Instructions: ED Tumor, Uncertain Cause Prescriptions: No Action albuterol sulfate 2.5 mg /3 mL (0.083 %) solution for nebulization 2.5 mg inhalation Q6H PRN (Reason: shortness of breath or wheezing) Patient Comments: PT NEVER NEEDS TO USE aspirin 81 mg tablet,delayed release (DR/EC) 81 mg PO DAILY Qty: 1 0RF metoprolol succinate 100 mg tablet extended release 24 hr 50 mg PO BID furosemide 40 mg tablet 40 mg PO DAILY levothyroxine 125 mcg tablet 125 mcg PO DAILY amlodipine 10 mg tablet 5 mg PO DAILY potassium chloride 10 mEq capsule, extended release 10 meq PO DAILY magnesium oxide 400 mg (241.3 mg magnesium) tablet 400 mg PO BID tamsulosin 0.4 mg capsule 0.4 mg PO DAILY atorvastatin 40 mg tablet 40 mg PO QHS Qty: 90 3RF Primary Care Provider: Douglas Ball Chi Referrals: Zoran Mojica MD [Med Staff - Active Staff] - 1-2 Weeks Print Language: Indian Disposition Disposition: Home, Self Care
[2025-03-14 11:15] VITALS: BP 114/65; PULSE 87; RESP 20; TEMP 36.5; O2SAT 93
[2025-03-14 12:12] VITALS: BP 134/79
--- NOTE | 2025-03-14 12:56 | CON.PCM.SX_ITS ---
HPI Consult Data Date of Consult: 03/14/25 HPI Narrative Reason for Consultation: Right chest mass HPI Narrative: JENNIFER CUNNINGHAM, is a 84 M who presents to the emergency department earlier today with a 3 to 4-week history of a right chest mass. [facility] Medical History (Updated 03/14/25 @ 12:[address] Kb Yañez MD) COPD (chronic obstructive pulmonary disease) Essential hypertension Hyperlipidemia Open wound of left thigh Sepsis Abscess or cellulitis of thigh Atherosclerotic heart disease of [place] coronary artery without angina pectoris Non-rheumatic mitral regurgitation Pulmonary hypertension NSTEMI (non-ST elevated myocardial infarction) CHF (congestive heart failure) Home Medications ?Medication ?Instructions ?Recorded ?Last Taken ?Type tamsulosin 0.4 mg capsule 0.4 mg PO DAILY PROSTATE 03/13/25 History albuterol sulfate 2.5 mg/3 mL 2.5 mg inhalation Q6H IL N 09/23/21 Unknown History (0.083 %) solution for nebulization shortness of breat h or wheezing aspirin 81 mg tablet,delayed 81 mg PO DAILY #1 TAB 07/0603/13/25 Rx release furosemide 40 mg tablet 40 mg PO DAILY 04/04/2202/14 History metoprolol succinate 100 mg 50 mg PO BID 09/28/2202/15 History tablet,extended release 24 hr amlodipine 10 mg tablet 5 mg PO DAILY BP 12/21/23 History levothyroxine 125 mcg tablet 125 mcg PO DAILY 12/21/23 03/13/25 History atorvastatin 40 mg tablet 40 mg PO QHS for cholesterol #90 05/22/24 03/13/25 Rx TABLETS magnesium oxide 400 mg (241.3 mg 400 mg PO BID 5 03/13/25 History magnesium) tablet potassium chloride 10 mEq 10 meq PO DAILY 03/14/25 History capsule,extended release Allergy/AdvReac Type Severity Reaction Status Date / Time amoxicillin (From Augmentin) Allergy Rash Verified 03/14/25 10:15 clavulanic acid (From Allergy Rash Verified 03/14/25 10:15 Augmentin) Opioids - Morphine Analogues AdvReac Low blood Verified 03/14/25 10:15 pressure Family History Grandmother CAD (coronary artery disease) Father CAD (coronary artery disease) Surgical History History of external ear surgery History of coronary artery bypass surgery (~11/25/20) Social History Smoking Status: Former smoker alcohol intake: never substance use type: does not use caffeine: Yes Type: coffee Number of servings: 4
--- NOTE | 2025-03-14 12:56 | EX.PCM.CON.S ---
Assessment & Plan Assessment/Plan (1) Mass of chest wall, right: PLAN: Plan The patient is an 84-year-old male with a highly suspicious mass involving the chest just above the right nipple. I am concerned about malignancy. Biopsies were performed at the time he was seen in the ER. I will contact him with results once they become available. HPI Consult Data Date of Consult: 03/14/25 HPI Narrative Reason for Consultation: Right chest mass HPI Narrative: JENNIFER CUNNINGHAM, is a 84 M who presents to the emergency department earlier today with a 3 to 4-week history of a right chest mass. Patient states that this has become larger. He brought this to the attention of his son. He originally was scheduled to meet with his PCP next week however his son prompted him to be seen sooner and brought him to the emergency room. He was seen by the ER staff. No blood work or imaging were warranted. Surgical consult was obtained for evaluation as this was not felt to be an abscess as the patient thought. Obviously concern for malignancy is of high concern. [facility] Medical History (Updated 03/14/25 @ 12:[address] Kb Yañez MD) COPD (chronic obstructive pulmonary disease) Essential hypertension Hyperlipidemia Open wound of left thigh Sepsis Abscess or cellulitis of thigh Atherosclerotic heart disease of [place] coronary artery without angina pectoris Non-rheumatic mitral regurgitation Pulmonary hypertension NSTEMI (non-ST elevated myocardial infarction) CHF (congestive heart failure) Home Medications ?Medication ?Instructions ?Recorded ?Last Taken ?Type tamsulosin 0.4 mg capsule 0.4 mg PO DAILY PROSTATE 11/30/20 03/13/25 History albuterol sulfate 2.5 mg/3 mL 2.5 mg inhalation Q6H PRN 09/23/21 Unknown History (0.083 %) solution for nebulization shortness of breath or wheezing aspirin 81 mg tablet,delayed 81 mg PO DAILY #1 TAB 09/23/21 03/13/25 Rx release furosemide 40 mg tablet 40 mg PO DAILY 04/04/22 03/13/25 History metoprolol succinate 100 mg 50 mg PO BID 09/28/22 03/14/25 History tablet,extended release 24 hr amlodipine 10 mg tablet 5 mg PO DAILY BP 12/21/23 03/13/25 History levothyroxine 125 mcg tablet 125 mcg PO DAILY 12/21/23 03/13/25 History atorvastatin 40 mg tablet 40 mg PO QHS for cholesterol #90 05/22/24 03/13/25 Rx TABLETS magnesium oxide 400 mg (241.3 mg 400 mg PO BID 03/14/25 03/13/25 History magnesium) tablet potassium chloride 10 mEq 10 meq PO DAILY 03/14/25 03/13/25 History capsule,extended release Allergy/AdvReac Type Severity Reaction Status Date / Time amoxicillin (From Augmentin) Allergy Rash Verified 03/14/25 10:15 clavulanic acid (From Allergy Rash Verified 03/14/25 10:15 Augmentin) Opioids - Morphine Analogues AdvReac Low blood Verified 03/14/25 10:15 pressure Family History Grandmother CAD (coronary artery disease) Father CAD (coronary artery disease) Surgical History History of external ear surgery History of coronary artery bypass surgery (~11/25/20) Social History Smoking Status: Former smoker alcohol intake: never substance use type: does not use caffeine: Yes Type: coffee Number of servings: 4 Physical Exam Const alert, oriented x3 and no apparent distress HEENT normocephalic Eyes PERRL Chest Chest Narrative: Examination of the right chest reveals about a 4 cm diameter raised exophytic mass. There is areas of purplish discoloration consistent with hemorrhage. The base of this is actually probably 7 to 8 cm in diameter and fairly firm. This does not seem consistent with a purulent abscess. I would be concerned about malignancy of some form whether breast versus even possibly of a sarcoma. I recommended and performed a biopsy in the emergency room. The area was prepped and draped in the usual manner. Local anesthetic was infiltrated. I performed a skin punch biopsy at the base of the lesion. Also several random core biopsies were performed as well. Tissue was sent to pathology for review. Hemostasis was achieved using electrocautery as well as silver nitrate. He tolerated the procedure well.
--- NOTE | 2025-03-14 13:00 | LES_PTH ---
PATIENT: JENNIFER CUNNINGHAM LOC: ED U#:[id number] AGE/SX: 84/M ROOM: RE03/14/[address]: Dr. Kb Yañez MD : 1940 BED: DIS: 03/14/2025 SPEC #: [id number] RECD: 03/14/25 13:40 STATUS: PHILIP REQ #: [id number] KATHERINE: 03/14/25 13:[address]: Zoran Mojica DEPT: SURGICAL PATHOLOGY RECD BY: Gonzales Persaud ENTERED: 03/14/25 13:41 SP TYPE: Lesion OTHR DR: MD Dr. Douglas Salazar Chi, MD Tissues: A - Skin of chest Procedures: Immunohistochemical Stains Surgery Specimen Level IV IHC Stain ADDITIONAL Comments: @ Ordering doctor for SUIV edited from to @ by KATHY at 03/14/25 1341 @ Submitting doctor edited from to @ by KATHY at 03/14/25 1341 HEADER OPERATION: Not noted PRE-OP DIAGNOSIS: Localized swelling, mass and lump, trunk, TISSUE SUBMITTED: A- Right chest mass biopsy MICROSCOPIC DIAGNOSIS A. 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 * No epidermal involvement observed in these sections (punch biopsy). * IHC for further classification is pending and the findings will be reported in an addendum. MICROSCOPIC DESCRIPTION Slides are reviewed. All matched controls reacted appropriately. These tests were developed and their performance characteristics determined by [facility]. They may not have been cleared or approved by the U.S. Food and Drug Administration. The FDA has determined that such clearance or approval is not necessary. The above immunohistochemical/dualISH markers are ordered and reviewed by the Pathologist. GROSS DESCRIPTION A. Received in formalin in a container labeled with the patient's name, date of , and with the accompanying paperwork indicating, skin punch and core biopsies of right chest mass are multiple peña-pink fragments of soft tissue measuring 2.5 x 0.6 x 0.2 cm in aggregate. The largest fragment (0.9 x 0.4 x 0.2 cm) appears to exhibit a white-farooq, rubbery portion of possible skin. The opposing presumed margin is inked green. The specimen is submitted entirely as follows:A1. Small fragmentsA2. Largest fragment with possible skin SMB 03-14-2025 CPT:17840, 07499, 64717e94 ADDENDUM ADDENDUM ADDENDUM ADDENDUM ADDENDUM ADDENDUM ADDENDUM ADDENDUM ADDENDUM ADDENDUM ADDENDUM ADDENDUM ADDENDUM ADDENDUM ADDENDUM ADDENDUM ADDENDUM ADDENDUM ADDENDUM ADDENDUM ADDENDUM ADDENDUM ADDENDUM ADDENDUM ADDENDUM ADDENDUM ADDENDUM ADDENDUM ADDENDUM ADDENDUM ADDENDUM ADDENDUM ADDENDUM ADDENDUM ADDENDUM ADDENDUM ADDENDUM ADDENDUM ADDENDUM 04/01/2025 10:55 ADDENDUM 04/01/2025 10:55 ADDENDUM 04/01/2025 10:55 ADDENDUM 04/01/2025 10:55 ADDENDUM 04/01/2025 10:55 ADDENDUM 04/14/2025 13:44 ADDENDUM 04/16/2025 09:11 ADDENDUM 05/01/2025 11:05 This addendum is to report the findings of the IHC staining and provide a comment regarding intradepartmental consultation with [facility] specialist pathologists. The slides were reviewed in intradepartmental consultation ([facility]) by dermatopathologist Dr Rosmery Alvarado and bone & soft tissue pathologist Dr Matthew Freitas. Their conclusion is that this tumor does not look like a melanoma. 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 To this end, molecular studies will be ordered at [facility] includin) Solid mutation panel 2) NTRK gene fusion 3) With reflex to comprehensive genomic profiling if the above are negative. This addendum was discussed with Dr Sisi Mendes (email, 04/01/25) and [facility] Oncology nursing staff (Kristin Barragan) 04/01/25. By IHC (performed at [facility] and [facility]) the tumor cells are: Positive: Vimentin, SOX10, S100 (patchy). Negative: Pancytokeratin, CK7, CK20, CD45, TTF-1, Chromogranin, Synaptophysin, Melan-A, HMB-45. All matched controls reacted appropriately. (Pancytokeratin, CK7, CK20, CD45, TTF-1, Chromogranin, Synaptophysin, Melan-A, Ki67) These tests were developed and their performance characteristics determined by [facility]. They may not have been cleared or approved by the U.S. Food and Drug Administration. The FDA has determined that such clearance or approval is not necessary.? The above immunohistochemical/dualISH?markers are ordered and reviewed by the Pathologist. All controls show appropriate reactivity.(SOX10, HMB-45, S-100) All immunohistochemistry, in situ hybridization, and histochemical tests were developed by and are performed at the [facility], [address], [place] [address]. All Immunofluorescent (IF)?tests were developed by and are performed at the [facility], [address] [place] [address], [place], [place] ?[address]. All tests reported here, except those addressing HER2 overexpression as a predictive marker, have not been cleared by or approved by the US Food and Drug Administration (FDA). The laboratory is regulated under CLIA as qualified to perform high-complexity testing. The tests are used for clinical purposes. They should not be regarded as investigational or for research. This addendum is added to incorporate an outside pathology consultation report. The case was examined at [facility] (#[id number]) and the following diagnosis was rendered. NTRK Fusion Interpretation: No NTRK 1, NTRK2, NTRK3, or other reportable gene fusions identified by RNA fusion panel (see comment). COMMENT: The suboptimal / hypocellular nature of this specimen resulted in reduced sequencing depth, which may decrease the sensitivity of this assay. Given the NTRK negative result, additional analysis was performed for 227 additional genes recurrently associated with gene fusions in solid tumors. Sample and run controls are adequate. Please see complete above mentioned consultation report in EMR This addendum is added to incorporate an outside pathology consultation report. The case was examined at [facility] by Dr. Mercer (#[id number]) and the following diagnosis was rendered. A. Right chest, mass, biopsy: Solid tumor mutation panel (NGS): BRAF p. V600E and a fully TERT promoter mutation, compatible with melanoma. NTRK fusion panel: Negative Please see complete above mentioned consultation report in EMR This addendum is to provide an updated final diagnosis, in view of the malignant melanoma excised from the right upper abdomen ([id number]): There are foci of poorly differentiated melanoma in the lesion from the right upper abdomen ([id number]) which more closely resemble the poorly differentiated cells of this chest lesion. This, along with the positive expression of SOX10, Vimentin, and patchy S100 by the tumor cells of this chest lesion support a diagnosis of metastatic malignant melanoma. The results of the molecular studies performed at [facility] are consistent with a malignant melanoma as well.
[2025-03-14 13:06] VITALS: BP 134/79; PULSE 87; RESP 20; TEMP 36.5; O2SAT 93
[2025-03-14 13:12] LABS: Pathology Skin Biopsy SEE PATHOLOGY REPORT
== END 2025-03-14 13:12 | disposition home or self-care (01) ==
PROVIDERS: Surgery; Emergency Provider Emergency Medicine; PCP Family Medicine Geriatric Medicine; Visit Provider Emergency Medicine
DX: R22.2 Localized swelling, mass and lump, trunk (principal); I11.0 Hypertensive heart disease with heart failure; I50.9 Heart failure, unspecified; J44.9 Chronic obstructive pulmonary disease, unspecified; I25.10 Atherosclerotic heart disease of native coronary artery without angina pectoris; Z87.891 Personal history of nicotine dependence; E78.5 Hyperlipidemia, unspecified; I25.2 Old myocardial infarction; Z79.82 Long term (current) use of aspirin; Z79.899 Other long term (current) drug therapy
CPT/HCPCS: 88305; 88341; 88342; 99282

== ENCOUNTER → 2025-03-19 | Outpatient (CLI) | payer MEDICARE, OTHER, SELFPAY ==
[2020-12-23 09:20] VITALS: BMI 29.0
[2025-03-19 11:04] LABS: Absolute Lymphocyte Count 4.63 X10^3/uL (0.83-4.51); Absolute Neutrophil Count 3.9 X10^3/uL (2.0-7.7); Basophil# 0.06 X10^3/uL; Basophil% 0.6 % (0-1); Eosinophil# 0.22 X10^3/uL; Eosinophils% 2.4 % (0-5); Hemoglobin 12.2 g/dL (13.0-16.5); Lymphocyte # 4.63 X10^3/ul (0.83-4.51); Mean Corpuscular Volume 90.9 fL (80-94); Mean Platelet Vol. 9.2 fl (6.2-12.0); Monocyte# 0.46 X10^3/uL; NRBC Flagged by Analyzer 0 % (0-5); Neutrophil # 3.87 X10^3/uL (2.7-7.7); Neutrophil % 41.8 % (47-70); Platelet Count 180 K/mm3 (150-450); RBC Distribution Width CV 15.5 % (11.6-14.6); RBC Distribution Width SD 51.8 fl (35.1-43.9); Red Blood Count 4.07 M/mm3 (4.6-6.2); White Blood Count 9.3 K/mm3 (4.4-11.0)
[2025-03-19 11:51] LABS: ALB/GLOB Ratio 1.5 RATIO (0.9-2.4); AST(SGOT) 26 U/L (<=37); Alanine Aminotransfer ALT/SGPT 17 U/L (<=46); Albumin, Serum 4.2 g/dL (3.4-4.8); Alkaline Phosphatase 157 U/L (40-129); Anion Gap 11 (5-15); BUN 13 mg/dL (4-19); BUN/Creat Ratio 13.3 RATIO (10-20); Calcium,Total 9.4 mg/dL (7.6-11.0); Carbon Dioxide 23.3 mmol/L (21.0-32.0); Chloride 105 mmol/L (98-108); Creatinine, Serum 0.99 mg/dL (0.70-1.20); EST Glomerular Filtration Rate 75 (>60); Globulin 2.8 g/dL (2.2-4.2); Glucose 115 mg/dL (70-99); Potassium 4.3 mmol/L (3.3-5.1); Protein, Total 7.1 g/dL (5.9-8.4); Sodium Level 139 mmol/L (133-145); Total Bilirubin 0.64 mg/dL (0.00-1.30)
== END | disposition home or self-care (01) ==
LOC: LAB 10:17
PROVIDERS: PCP Family Medicine Geriatric Medicine; Referring Provider Family Medicine Geriatric Medicine; Visit Provider Family Medicine Geriatric Medicine
DX: I10 Essential (primary) hypertension (principal); E55.9 Vitamin D deficiency, unspecified
CPT/HCPCS: 36415; 80053; 82306; 84443; 85025

== ENCOUNTER → 2025-04-02 | Outpatient (CLI) | payer MEDICARE, OTHER, SELFPAY ==
[2020-12-23 09:20] VITALS: BMI 29.0
--- NOTE | 2025-04-02 13:27 | CT_ITS ---
PROCEDURE: CHEST WITH CONTRAST 04/02/2025 REASON FOR EXAM: MASS ON RIGHT CHEST TECHNIQUE: CHEST WITH CONTRAST Coronal and Sagittal reconstruction series were provided. CONTRAST: Isovue-300 VOLUME: 68 mL One or more dose reduction techniques were used (e.g., Automated exposure control, adjustment of the mA and/or kV according to patient size, use of iterative reconstruction technique). RADIATION DOSE SUMMARY: CTDlvol: 15.19 and 11.51 mGy DLP: 395.44 mGycm COMPARISON: Chest radiograph October 14, 2021 FINDINGS: Hardware: Sternal wires and mediastinal vascular clips Lymph nodes: No significant mediastinal, hilar or axillary lymphadenopathy. Small number of normal-sized lymph nodes in the right axilla somewhat more numerous perhaps in the left axilla. Heart and Vasculature: Extensive triple-vessel coronary artery disease and bypass grafting moderately extensive thoracic aorta atheromatous calcific plaque. Mild ectasia of the ascending aorta measuring 40.8 mm. 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 Centrilobular emphysema Pleura: Unremarkable. Upper Abdomen: The 1.5 cm indeterminate right adrenal nodule is identified. Left adrenal appears mildly hyperplastic without focal nodule. No acute process in the upper abdomen. Small hiatal hernia. Bones: No aggressive bone lesion. A 6.7 cm by 4 point 5 cm lesion appears to be emanating from the right areola. Male breast cancer is somewhat unusual, but not unheard of and should be the primary consideration among the differential diagnostic possibilities. CT/Chest WITH Contrast IMPRESSION: Coronary artery calcification (CAC) is triple-vessel disease, moderately severe Large anterior right chest wall mass in the immediate subcutaneous space. Amen able to ultrasound-guided needle biopsy. Reading [facility]
== END | disposition home or self-care (01) ==
LOC: CT 12:59
PROVIDERS: PCP Family Medicine Geriatric Medicine; Referring Provider Surgery Plastic and Reconstructive Surgery; Visit Provider Surgery Plastic and Reconstructive Surgery
DX: R22.2 Localized swelling, mass and lump, trunk (principal)
CPT/HCPCS: 71260; Q9967

== ENCOUNTER → 2025-04-09 | Outpatient (CLI) | payer MEDICARE, OTHER, SELFPAY ==
[2020-12-23 09:20] VITALS: BMI 29.0
--- NOTE | 2025-04-09 | LES_PTH ---
PATIENT: JENNIFER CUNNINGHAM LOC: JENNIFER U#:[id number] AGE/SX: 84/M ROOM: RE04/09/[address]: Dr. Ernesto Mendes MD : 1940 BED: DIS: 04/09/2025 SPEC #: [id number] RECD: 04/09/25 17:17 STATUS: PHILIP REMich #: [id number] KATHERINE: 04/09/25 00:[address]: Ernesto Mendes DEPT: SURGICAL PATHOLOGY RECD BY: Gonzales Persaud ENTERED: 04/10/25 09:15 SP TYPE: Lesion OTHR DR: Dr. Douglas Ball MD Tissues: A - Skin of abdomen, NOS Procedures: Surgery Specimen Level IV HEADER OPERATION: Excision abdominal lesion PRE-OP DIAGNOSIS: Short superior, long lateral right upper abdominal lesion TISSUE SUBMITTED: A- Short superior, long lateral, right upper abdominal lesion MICROSCOPIC DIAGNOSIS A. Abdomen, right upper, lesion, excision: * Malignant melanoma with ulceration, involving the superior surgical margin. * Poli level IV, Breslow thickness 5 mm, [id number] SYNOPTIC REPORT TUMOR: Procedure: excision Specimen Laterality: right? Tumor Site: skin, right upper abdomen Multiple Primary Sites (P=present, NA=not applicable):?NA Histologic Type: melanoma nos Maximum Tumor (Breslow) Thickness in Millimeters (mm): 5 mm Ulceration?(P=present. N=not identified): P Extent of Ulceration in Millimeters (mm): 7 mm Anatomic (Poli) Level: IV (melanoma invades reticular dermis)? Mitotic Rate: 5 mitoses per mm2 Macroscopic Satellite Lesion(s): Not identified? Microsatellite/s (P=present. N=not identified): N Lymphatic and/or Vascular Invasion?(P=present. N=not identified): P Neurotropism (P=present. N=not identified): P Tumor-Infiltrating Lymphocytes: Present, brisk? Tumor Regression: Not identified? MARGINS: Margin Status for Melanoma _X_ Invasive melanoma present at margin? Margin(s) Involved by Invasive Melanoma _X_ Peripheral: superior ___ Deep REGIONAL LYMPH NODES Regional Lymph Node Status: Not applicable (no regional lymph nodes submitted or found)? DISTANT METASTASIS? Distant Site(s) Involved: skin, subcutaneous tissues of right chest wall pTNM CLASSIFICATION (AJCC 8th Edition) pT Category? ___ pT not assigned (cannot be determined based on available pathological information)? ___ pT0: No evidence of primary tumor (e.g., unknown primary or completely regressed melanoma)? pT1: Melanoma 1.0 mm or less in thickness, ulceration status unknown or unspecified (see Note D)? ___ pT1a: Melanoma less than 0.8 mm in thickness, without ulceration? ___ pT1b: Melanoma less than 0.8 mm in thickness with ulceration; or Melanoma equal to or greater than 0.8 mm and less than or equal to 1.0 mm in thickness with or without ulceration? ___ pT1 (subcategory cannot be determined)? pT2: Melanoma greater than 1.0 to 2.0 mm in thickness, ulceration status unknown or unspecified? ___ pT2a: Melanoma greater than 1.0 mm and less than or equal to 2.0 mm in thickness, without ?ulceration? ___ pT2b: Melanoma greater than 1.0 mm and less than or equal to 2.0 mm in thickness, with ulceration? ___ pT2 (subcategory cannot be determined)? pT3: Melanoma greater than 2.0 to 4.0 mm in thickness, ulceration status unknown or unspecified? ___ pT3a: Melanoma greater than 2.0 mm and less than or equal to 4.0 mm in thickness, without ?ulceration? ___ pT3b: Melanoma greater than 2.0 mm and less than or equal to 4.0 mm in thickness, with ulceration? ___ pT3 (subcategory cannot be determined)? pT4: Melanoma greater than 4.0 mm in thickness, ulceration status unknown or unspecified? ___ pT4a: Melanoma greater than 4.0 mm in thickness, without ulceration? _X_ pT4b: Melanoma greater than 4.0 mm in thickness, with ulceration? ___ pT4 (subcategory cannot be determined)? pN Category? _X_ pN not assigned (no nodes submitted or found)? pM Category (required only if confirmed pathologically)? ___ Not applicable - pM cannot be determined from the submitted specimen(s)? pM1: Evidence of distant metastasis?([id number]) _X_ pM1a: Distant metastasis in skin (including subcutaneous tissues), soft tissues including muscle and?/ or non-regional lymph node(s)? ___ pM1b: Distant metastasis to lung with or without M1a sites of disease? ___ pM1c: Distant metastasis to non-[place] visceral sites with or without M1a or M1b sites of disease? ___ pM1d: Distant metastasis to [place] with or without M1a, M1b, or M1c sites of disease? ___ pM1 (subcategory cannot be determined)? COMMENTS? Comment(s): intradepartmental review bya dermatopathologist is pending and any further comments will be reported in an addendum. See [id number] for molecular testing performed at [facility]. COMMENT See also [id number]. MICROSCOPIC DESCRIPTION Slides are reviewed. GROSS DESCRIPTION Received in formalin labeled with the patient's name and date of . Designated as short superior long lateral right upper abdominal lesion is a 4.8 x 1.9 cm peña skin ellipse excised to a maximum depth of 1.3 cm and with orientation as follows:Short suture: designated as superior, redesignated as 3:00 per the [facility] [place].Long suture: designated as lateral, redesignated as 12:00 per the [facility] [place]. There is an area of patchy dark farooq discoloration and ulcerations comprising up to 75% of the epidermal surface, and an area collectively measuring 3.0 x 1.4 cm. This area located the following distances from the margins:12:00 (lateral): 1.2 cm 3:00 (superior): <0.1 cm 6:00: 0.5 cm9:00: 0.1 cmDeep: Approximately 1.0 cm Ink giraldo: 12:00 half (deep): Black3:00 (periphery): Green9:00 (periphery): Blue6:00 half (deep): [place] The specimen is serially sectioned from 12:00 to 6:00, and entirely submitted, sequentially as follows: A1: 12:00 tip, perpendicularA2-A12: Central cross-sections (lesion, A4-A12)A13: 6:00 tip, perpendicular SC 04/10/2025 CPT:21901
== END | disposition home or self-care (01) ==
PROVIDERS: PCP Family Medicine Geriatric Medicine; Referring Provider Surgery Plastic and Reconstructive Surgery; Visit Provider Surgery Plastic and Reconstructive Surgery
DX: L98.8 Other specified disorders of the skin and subcutaneous tissue (principal)
CPT/HCPCS: 88305

== ENCOUNTER 2025-04-25 06:31 | Day surgery (SDC) | payer MEDICARE, OTHER, SELFPAY ==
[2020-12-23 09:20] VITALS: BMI 29.0
--- NOTE | 2025-04-24 16:28 | PAT.ANE_ITS ---
Pre-Assessment Diagnosis/Proposed Procedure Planned Operative Procedure(s): (R) Excision for margins right chest melanoma( primary lesion with primary closure Anesthesia History Anesthesia History - internal communications writer: Anesthesia History - internal communications writer Hx Hospitalization No 04/24/25 16:02 Any Problems With Anesthesia No 04/24/25 16:02 Cholinesterase deficiency No 04/24/25 16:02 You/Your Family Experience No 04/24/25 16:02 fever (hyperthermia) with Relationship Recent Exposure to Contagious Disease Does patient have nerve No 04/24/25 16:02 stimulator Patient instructed to have device shut off --Does patient have Pacemaker or ICD? When Was Last Pacemaker Check QUESTION #4 FULL TEXT: You/Your Family Experience fever (hyperthermia) with Anesthesia Last Oral Intake Last Oral intake: Last Oral Intake NPO since Meds taken in AM with sips of water? Meds patient instructed to take am of surgery PONV PONV - internal communications writer: PONV - internal communications writer Female No 04/24/25 16:02 HX of Motion Sickness No 04/24/25 16:02 HX of N/V After Surgery No 04/24/25 16:02 Non-Smoker Yes 04/24/25 16:02 Duration of Surgery greater Yes 04/24/25 16:02 than 60 minutes Number of Risk Factors 2 04/24/25 16:02 PONV Score Moderate Risk 04/24/25 16:02 Height & Weight Height & Weight: Anesthesia: Height & Weight Height 5 ft 8 in 04/16/25 15:56 Respiratory Assessment Respiratory Assessment - internal communications writer: Respiratory Tract Infection Hx - internal communications writer Hx Respiratory Tract Infection No 04/24/25 16:02 STOP Sleep Apnea STOP Sleep Apnea - internal communications writer: STOP Sleep Apnea - internal communications writer Hx Hypertension Yes: PER PT, CONTROLLED ON 04/24/25 16:02 MEDS Hx Sleep Apnea No 04/24/25 16:02 CPAP BIPAP Do you snore loudly (louder Yes 04/24/25 16:02 than talking or can be heard Do you often feel tired/ No 04/24/25 16:02 fatigued/ sleepy during daytime? Has anyone observed you stop No 04/24/25 16:02 breathing during sleep? STOP Results Positive 04/24/25 16:02 QUESTION #5 FULL TEXT : Do you snore loudly (louder than talking or can be heard through closed doors)? Tobacco Use History Tobacco Use History - internal communications writer: Tobacco Use History - internal communications writer Tobacco Use Smoking Status Former smoker 04/24/25 16:02 Hx Tobacco Use No 04/24/25 16:02 Years Smoking Packs Smoked per Day Smoking Cessation Date was No - quit smoking greater 04/24/25 16:02 within the last 15 years than 15 years ago Hx Smoking Cessation Date 10[birth year]16/85 04/24/25 16:02 Hx Smoking Cessation Counseling Hematologic Medial History Hematologic Hx - internal communications writer: Hematologic Medical Hx - documentation consultant Hx of Blood Transfusion No 04/24/25 16:02 Hx of Transfusion in last 3 No 04/24/25 16:02 Months Date of Last Transfusion (if within last 3 months) Ever experience any problems No 04/24/25 16:02 with transfusion(s)? Specify any problems Hx of Preganancy in last 3 N/A 04/24/25 16:02 Months Nurse Filling Out Transfusion MGRIHILDA 04/24/25 16:02 & Questions: Date: 04/24/25 04/24/25 16:02 Time: 16:04 04/24/25 16:02 Patient unable to answer at this time (ie. confused, unrespo /Reproduction History /Reproductive History - internal communications writer: /Reproductive Hx- internal communications writer Hx Now Gestational Age (in weeks): EDC: Hx Hx Para Hx Section SAB PFSH Medical History (Updated 04/24/25 @ 16:12 by Ariane Robertson) Loss of hearing Edentulous Anxiety Thyroid disease Prostate disease Easy bruising Blackout Chronic cough Former smoker History of irregular heartbeat History of echocardiogram Cardiology follow-up encounter Malignant melanoma COPD (chronic obstructive pulmonary disease) Essential hypertension Hyperlipidemia Open wound of left thigh Sepsis Abscess or cellulitis of thigh Atherosclerotic heart disease of [place] coronary artery without angina pectoris Non-rheumatic mitral regurgitation Pulmonary hypertension NSTEMI (non-ST elevated myocardial infarction) CHF (congestive heart failure) Home Medications ?Medication ?Instructions ?Recorded ?Last Taken ?Type tamsulosin 0.4 mg capsule 0.4 mg PO DAILY PROSTATE 03/13/25 History albuterol sulfate 2.5 mg/3 mL 2.5 mg inhalation Q6H HI N 09/23/21 Unknown History (0.083 %) solution for nebulization shortness of breat h or wheezing aspirin 81 mg tablet,delayed 81 mg PO DAILY #1 TAB 07/0603/13/25 Rx release furosemide 40 mg tablet 40 mg PO DAILY 04/04/2202/14 History metoprolol succinate 100 mg 50 mg PO BID 09/28/2202/15 History tablet,extended release 24 hr amlodipine 10 mg tablet 5 mg PO DAILY BP 12/21/23 History levothyroxine 125 mcg tablet 125 mcg PO DAILY 12/21/23 03/13/25 History atorvastatin 40 mg tablet 40 mg PO QHS for cholesterol #90 05/22/24 03/13/25 Rx TABLETS magnesium oxide 400 mg (241.3 mg 400 mg PO BID 5 03/13/25 History magnesium) tablet potassium chloride 10 mEq 10 meq PO DAILY 03/14/25 History capsule,extended release Allergy/AdvReac Type Severity Reaction Status Date / Time amoxicillin (From Augmentin) Allergy Rash Verified 04/24/25 15:59 clavulanic acid (From Allergy Rash Verified 04/24/25 15:59 Augmentin) oxycodone AdvReac Intermediate OTHER Verified 04/24/25 15:59 Opioids - Morphine Analogues AdvReac Low blood Verified 04/24/25 15:59 pressure Family History Grandmother CAD (coronary artery disease) Father CAD (coronary artery disease) Surgical History History of external ear surgery History of coronary artery bypass surgery (~11/25/20) Social History Smoking Status: Former smoker Tobacco: How many years used: 20 alcohol intake: never substance use type: does not use caffeine: Yes Type: coffee Number of servings: 4 additional social history: pt denies vaping, pt denies marijuana, pt denies smoking pt uses ibuprofen as needed pt uses aspirin daily Audit: Pertinent Findings Pertinent Findings EKG Perinent findings: 12/28/2020. Normal sinus rhythm with sinus arrhythmia. Septal infarct, age undetermined. Echo (EF%) pertinent findings: 09/30/2021. EF of 50%. RVSP of 29 mmHg. Mild aortic stenosis. Heart catheterization pertinent findings: November 17, 2020. Mild pulmonary hypertension. EF of 40%. Anterior hypokinesis. Apical hypokinesis. Left main has 50% stenosis. Proximal LAD has 99% stenosis. Circumflex has a 50% stenosis of the ostial circumflex. There is a 50% stenosis of the proximal RCA. Consult pertinent findings: 07/11/2024. Dr. Negrete. 1. History of coronary artery bypass surgery?chronic-BLEVINS to LAD. CY/SVG tandem graft to the ramus. Continue current medical therapy. 2. Cardiomyopathy, [id number]-UA has been improving, 50% on last echo in 09/2021. 3. Hypertension?[id number]-xlzv-zqzfvgrhwx. Reduce amlodipine to 5 mg. Recommendation Anesthesia Recommendation Anesthesia recommendation: OPTIMIZED for anesthesia
[2025-04-25] VITALS (9 sets, daily range): BP systolic 113–153; BP diastolic 59–71; PULSE 80–97; RESP 16–20; TEMP 36.1–36.6; O2SAT 92–96; BMI 28.0
--- OUTSIDE RECORDS SUMMARY | 2025-04-25 06:34 | XMS RPT_ITS | CCD ---
Author Organization [facility] Care Team Providers Care Advertising Statistical Clerk Name Role Phone Dr. Douglas Ball Chi Primary Care Provider Quinn, Dr. Douglas Vazquez Referring Provider Roof CHILD CUSTODY EVALUATOR, CHILD CUSTODY EVALUATOR-C Chicho Castro Attending Provider Quinn CULLEN, Dr. Douglas Vazquez Primary Care Provider [phone] Otilio CULLEN, Dr. Quiles Emergency Provider Galina CULLEN, Dr. Zoran Sprague Attending Provider Otilio CULLEN, Dr. Quiles Attending Provider Quinn CULLEN, Dr. Douglas Vazquez Attending Provider Quinn CULLEN, Dr. Douglas Vazquez Referring Provider Vaughn CULLEN, Dr. Orozco Attending Provider Vaughn CULLEN, Dr. Orozco Referring Provider Dr. Patricia Beckham MD Attending Provider Ernesto Mendes Referring Unavailable Ernesto Mendes Attending Unavailable Quinn, Douglas Chi Primary Care Unavailable Quinn, Douglas Chi Primary Care Unavailable Kb Yañez Attending Unavailable Quinn, Douglas Chi Attending Unavailable Quinn, Douglas Chi Primary Care Unavailable Quinn, Douglas Chi Primary Care Unavailable Patricia Beckham Referring Unavailable Patricia Beckham Attending Unavailable Quinn, Douglas Chi Referring Unavailable Shay Negrete Attending Unavailable Quinn, Douglas Chi Primary Care Unavailable Quinn, Douglas Chi Primary Care Unavailable Quinn, Douglas Chi Referring Unavailable Ernesto Mendes Attending Unavailable Zoran Mojica Attending Unavailable Quinn, Douglas Chi Primary Care Unavailable Quinn, Douglas Chi Primary Care Unavailable Quinn, Douglas Chi Referring Unavailable Patricia Beckham Attending Unavailable Quinn, Douglas Chi Referring Unavailable Ernesto Mendes Attending Unavailable Quinn, Douglas Chi Primary Care Unavailable Quinn, Douglas Chi Referring Unavailable Quinn, Douglas Chi Primary Care Unavailable Patricia Beckham Attending Unavailable Quinn, Douglas Chi Referring Unavailable SisErnesto hutchins Attending Unavailable Quinn, Douglas Chi Primary Care Unavailable Ernesto Mendes Referring Unavailable Sisliset Ernesto Attending Unavailable Quinn, Douglas Chi Primary Care Unavailable Quinn, Douglas Chi Referring Unavailable Quinn, Douglas Chi Attending Unavailable Quinn, Douglas Chi Primary Care Unavailable Quinn, Douglas Chi Attending Unavailable Quinn, Douglas Chi Primary Care Unavailable Allergies Allergy Classification Reported Allergen(s) Allergy Type Date of Onset Reaction(s) Facility (13 sources) Amoxicillin Drug Allergy 1 [facility] (13 sources) Clavulanate Drug Allergy 1 [facility] (1 source) OPIATES Propensity to adverse reactions 1 Low blood pressure [facility] Work Phone: (12 sources) Opioids - Morphine Analogues Propensity to adverse reactions 2 Low blood pressure [facility] (1 source) Amoxicillin Drug Allergy 5 [facility] before meal. 30 tablet 0 No current facility-administered medications for this visit. SOCIAL HISTORY: Patient is single. He quit smoking over 25 years ago. Reports his alcohol use as never. PHYSICAL EXAMINATION: Blood pressure 150/62, pulse 92, height 167 cm (5' 5.75), weight 83.9 kg (185 lb), SpO2 97 %. General Appearance: Well appearing, alert, in no acute distress, well-hydrated, well nourished. Skin: Skin color, texture, turgor normal. Head: Normocephalic, no abnormalities. Eyes: Anicteric sclera. Pupils are equally round and reactive to light. Neck: Supple, no adenopathy; thyroid symmetric, normal size. Lungs: Lungs clear to auscultation. Heart: RRR without murmur. Chest: well healed midline scar. Abdomen: Abdomen soft, non-tender. Bowel sounds normal. No masses, organomegaly. Extremities: No deformities, edema, skin discoloration, clubbing or cyanosis. Peripheral Pulses: Normal. Neurologic: Gait normal with cane. Sensation grossly intact. Impression: pill dysphagia - consider related to intubation. Plan: Esophagram. EGD if indicated. Further plan based on the results. I spent a total of at least 30minutes on the date of the service which included completing clinical documentation, counseling and educating the patient/family/caregi anuj, ordering medications, tests, or procedures and care coordination (not separately reported). Sally Ortez RN CRYPTOLOGICAL TECHNICIAN.CONCRETE BLOCK MAKER Normal [facility] CNOVon 12-14-2020 CNOV Office Visit ([facility] ) TOM IBRAHIM ([id number]) 1940 M Date Time Provider Department 12/14/20 6:30 AM MARIYA HERNANDEZ) [facility] During your visit today, we recorded the following information about you: Temperature Pulse Respiration Blood pressure 98.2 degrees 90/minute 18/minute 126/76 Weight 85.7 kg Mariya Hernandez PA-C 12/14/2020 8:41 AM Addendum This note was created using Netatmoriter. Subjective Tom Ibrahim is a 80 year old male. HPI Patient presents with feeling like his pills are getting stuck in his esophagus. He had a double bypass about a month ago. He states about 2 weeks after his surgery he felt like he started to get his pills stuck in his throat/upper esophagus. He states it is painful. Sometimes he feels like it is stuck for 3 or 4 hours and then will eventually go down. He did start multiple new medications after his surgery. Denies history of esophageal stricture or GERD. He has not had an endoscopy that he knows of. No fever or chills. No cough or congestion. He has been trying to take his pills with applesauce. No vomiting or pain in his chest. Review of Systems HENT: Negative. Eyes: Negative. Respiratory: Negative for chest tightness and shortness of breath. Cardiovascular: Negative for chest pain and leg swelling. Gastrointestinal: Negative for abdominal distention, abdominal pain, constipation, diarrhea, nausea and vomiting. Pills getting stuck in esophagus Musculoskeletal: Negative for back pain. All other systems reviewed and are negative. History reviewed. No pertinent past medical history. Current Outpatient Medications Medication Sig Dispense Refill - amiodarone (PACERONE) 200 mg tablet Take 200 mg by mouth. - metoprolol tartrate, short acting, (LOPRESSOR) 25 mg tablet Take 12.5 mg by mouth. - furosemide (LASIX) 20 mg tablet Take by mouth. - tamsulosin (FLOMAX) 0.4 mg Take 0.4 mg by mouth. - magnesium oxide 400 mg magnesium cap Take 400 mg by mouth. - amLODIPine (NORVASC) 10 mg tablet Take 10 mg by mouth once daily. - atorvastatin (LIPITOR) 40 mg tablet Take 40 mg by mouth. - aspirin 81 mg chewable tablet Take 81 mg by mouth. - levothyroxine (SYNTHROID) 100 mcg tablet Take 100 mcg by mouth. - clopidogrel (PLAVIX) 75 mg tablet Take 75 mg by mouth. - pantoprazole DR (PROTONIX) 40 mg tablet Take 1 tablet by mouth daily before breakfast. Take on empty stomach, 1/2 hr before meal. 30 tablet 0 No current facility-administered medications for this visit. History reviewed. No pertinent surgical history. History reviewed. No pertinent family history. Social History Tobacco Use - Smoking status: Former Smoker - Smokeless tobacco: Never Used Substance Use Topics - Alcohol use: Not on file - Drug use: Not on file Objective BP 126/76 Pulse 118 Temp 36.8 ?C (98.2 ?F) (Tympanic) Resp 18 Wt 85.7 kg (189 lb) SpO2 95% Physical Exam Vitals reviewed. Constitutional: Appearance: Normal appearance. HENT: Head: Normocephalic and atraumatic. Mouth/Throat: Mouth: Mucous membranes are dry. Pharynx: Oropharynx is clear. No oropharyngeal exudate or posterior oropharyngeal erythema. Cardiovascular: Rate and Rhythm: Normal rate and regular rhythm. Heart sounds: Normal heart sounds. Pulmonary: Effort: Pulmonary effort is normal. Breath sounds: Normal breath sounds. Abdominal: General: Abdomen is flat. Tenderness: There is no abdominal tenderness. There is no guarding. Musculoskeletal: Cervical back: Neck supple. Lymphadenopathy: Cervical: No cervical adenopathy. Skin: General: Skin is warm and dry. Neurological: Mental Status: He is alert. Assessment and Plan ASSESSMENT/PLAN: 1. 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 She did recommend a PPI, I did use pantoprazole so it would not interact with his Plavix. I did call the patient and let him know his medication was sent into the pharmacy and also recommended that he make sure he drinks fluid prior to taking pills, with the pill and after pills. I did let him know his appointment time as well with Dalila Ortez. Discussed red flag symptoms to go to the ER. Patient agreeable with plan. Mariya Hernandez PA-C Referring Provider: SELF [200] Allergies As of Date: 12/14/2020 (No Known Allergies) Date Reviewed: 12/14/2020 Reviewed by: Yamilet Miller Ma - Fully Assessed Reason for Visit: Throat Problem [109] Cmt: irritation, had a surgery couple weeks ago getting pills stuck in throat Primary Visit Diagnosis:Pill esophagitis [K20.80, T50.905A] Order(s):pantoprazole DR (PROTONIX) 40 mg tabletTake 1 tablet by mouth daily before breakfast. Take on empty stomach, 1/2 hr before meal.Disp: 30 tabletRfl: 0 Prescriptions as of 12/14/2020 Sig: AMIODARONE 20 (more content not included)... Normal [facility] Vital Signs Date Time Vital Sign Value Performing Clinician Hakan johnson 04-16-2025 15:56-0400 Body height 172.[address] Douglas Ball MD Work Phone: [facility] 04-16-2025 15:56-0400 Body temperature 99.1 [degF] Dr. Douglas Ball MD Work Phone: [facility] 04-16-2025 15:56-0400 Diastolic blood pressure 64 mm[Hg] Dr. Douglas Ball MD Work Phone: [facility] 04-16-2025 15:56-0400 Heart rate 87 /min Dr. Douglas Ball MD Work Phone: [facility] 04-16-2025 15:56-0400 Respiratory rate 18 /min Dr. Douglas Ball MD Work Phone: [facility] 04-16-2025 15:56-0400 SaO2% (BldA) [Mass fraction] 94 % Dr. Douglas Ball MD Work Phone: 8(690)108-254616 [place] [address] 04-16-2025 15:56-0400 Systolic blood pressure 121 mm[Hg] Dr. Douglas Ball MD Work Phone: 5(769)158-157876 [place] [address] 04-15-2025 11:52-0400 Body height 172.[address] Douglas Ball MD Work Phone: 3(339)496-464276 [place] [address] 04-15-2025 11:52-0400 Body mass index (BMI) [Ratio] 26.9 kg/m2 Dr. Douglas Ball MD Work Phone: 2(693)417-228176 [place] [address] 04-15-2025 11:52-0400 Body temperature 97.3 [degF] Dr. Douglas Ball MD Work Phone: 5(195)631-033676 [place] [address] 04-15-2025 11:52-0400 Body weight 80.[address] Douglas Ball MD Work Phone: 8(951)411-678276 [place] [address] 04-15-2025 11:52-0400 Diastolic blood pressure 67 mm[Hg] Dr. Douglas Ball MD Work Phone: 0(623)361-164076 [place] [address] 04-15-2025 11:52-0400 Heart rate 82 /min Dr. Douglas Ball MD Work Phone: 4(215)704-655276 [place] [address] 04-15-2025 11:52-0400 Respiratory rate 16 /min Dr. Douglas Ball MD Work Phone: 2(918)181-994776 [place] [address] 04-15-2025 11:52-0400 SaO2% (BldA) [Mass fraction] 92 % Dr. Douglas Ball MD Work Phone: 3(242)062-475176 [place] [address] 04-15-2025 11:52-0400 Systolic blood pressure 132 mm[Hg] Dr. Douglas Ball MD Work Phone: 9(852)915-032776 [place] [address] 04-07-2025 09:16-0400 Body height 172.[address] Douglas Ball MD Work Phone: [facility] 04-07-2025 09:16-0400 Body mass index (BMI) [Ratio] 26.9 kg/m2 Dr. Douglas Ball MD Work Phone: 6(830)196-004816 [place] [address] 04-07-2025 09:16-0400 Body temperature 97.3 [degF] Dr. Douglas Ball MD Work Phone: 9(225)388-279076 [place] [address] 04-07-2025 09:16-0400 Body weight 80.[address] Douglas Ball MD Work Phone: 3(999)689-783976 [place] [address] 04-07-2025 09:16-0400 Diastolic blood pressure 73 mm[Hg] Dr. Douglas Ball MD Work Phone: 3(732)785-859076 [place] [address] 04-07-2025 09:16-0400 Heart rate 70 /min Dr. Douglas Ball MD Work Phone: 8(184)772-626076 [place] [address] 04-07-2025 09:16-0400 Respiratory rate 16 /min Dr. Douglas Ball MD Work Phone: 0(904)924-814076 [place] [address] 04-07-2025 09:16-0400 SaO2% (BldA) [Mass fraction] 95 % Dr. Douglas Ball MD Work Phone: 1(077)287-458776 [place] [address] 04-07-2025 09:16-0400 Systolic blood pressure 143 mm[Hg] Dr. Douglas Ball MD Work Phone: 9(548)529-492576 [place] [address] 03-31-2025 15:56-0400 Body height 172.[address] Douglas Ball MD Work Phone: 5(017)255-132176 [place] [address] 03-31-2025 15:56-0400 Body mass index (BMI) [Ratio] 27.6 kg/m2 Dr. Douglas Ball MD Work Phone: 5(605)227-735876 [place] [address] 03-31-2025 15:56-0400 Body temperature 98.6 [degF] Dr. Douglas Ball MD Work Phone: 9(260)217-693576 [place] [address] 03-31-2025 15:56-0400 Body weight 82.[address] Douglas Ball MD Work Phone: 4(681)891-454916 [place] [address] 03-31-2025 15:56-0400 Diastolic blood pressure 66 mm[Hg] Dr. Douglas Ball MD Work Phone: 9(759)135-609776 [place] [address] 03-31-2025 15:56-0400 Heart rate 87 /min Dr. Douglas Ball MD Work Phone: 5(570)328-249376 [place] [address] 03-31-2025 15:56-0400 Respiratory rate 18 /min Dr. Douglas Ball MD Work Phone: 1(482)598-292476 [place] [address] 03-31-2025 15:56-0400 SaO2% (BldA) [Mass fraction] 94 % Dr. Douglas Ball MD Work Phone: 6(383)208-755876 [place] [address] 03-31-2025 15:56-0400 Systolic blood pressure 164 mm[Hg] Dr. Douglas Ball MD Work Phone: 5(354)504-809276 [place] [address] 03-14-2025 13:06-0400 Body temperature 97.7 [degF] Dr. Douglas Ball MD Work Phone: 4(032)870-020176 [place] [address] 03-14-2025 13:06-0400 Diastolic blood pressure 79 mm[Hg] Dr. Douglas Ball MD Work Phone: 5(521)954-861276 [place] [address] 03-14-2025 13:06-0400 Heart rate 87 /min Dr. Douglas Ball MD Work Phone: 4(271)516-574876 [place] [address] 03-14-2025 13:06-0400 Respiratory rate 20 /min Dr. Douglas Ball MD Work Phone: 2(046)845-425476 [place] [address] 03-14-2025 13:06-0400 SaO2% (BldA) [Mass fraction] 93 % Dr. Douglas Ball MD Work Phone: 0(786)632-247376 [place] [address] 03-14-2025 13:06-0400 Systolic blood pressure 134 mm[Hg] Dr. Douglas Ball MD Work Phone: 0(943)106-443476 [place] [address] 03-14-2025 10:13-0400 Body height 172.[address] Douglas Ball MD Work Phone: [facility] 03-14-2025 10:13-0400 Body mass index (BMI) [Ratio] 27.6 kg/m2 Dr. Douglas Ball MD Work Phone: [facility] 03-14-2025 10:13-0400 Body weight 82.[address] Douglas Ball MD Work Phone: [facility] 05-22-2023 13:09-0400 Body height 172.[address] Douglas Ball Work Phone: [facility] 05-22-2023 13:08-0400 Body mass index (BMI) [Ratio] 28.4 kg/m2 Dr. Douglas Ball Work Phone: [facility] 05-22-2023 13:08-0400 Body weight 84.[address] Douglas Ball Work Phone: [facility] 05-22-2023 13:08-0400 Diastolic blood pressure 80 mm[Hg] Dr. Douglas Ball Work Phone: [facility] 05-22-2023 13:08-0400 Heart rate 87 /min Dr. Douglas Ball Work Phone: [facility] 05-22-2023 13:08-0400 Respiratory rate 18 /min Dr. Douglas Ball Work Phone: [facility] 05-22-2023 13:08-0400 SaO2% (BldA) [Mass fraction] 95 % Dr. Douglas Ball Work Phone: [facility] 05-22-2023 13:08-0400 Systolic blood pressure 170 mm[Hg] Dr. Douglas Ball Work Phone: [facility] Encounters Encounter Date Encounter Type Care Provider Facility Start: 04-22-2025 ambulatory Douglas Ball Facility:[facility] Start: 04-16-2025 End: 04-16-[address] Ernesto Mendes MD -[facility] Work Phone: Start: 04-16-2025 End: 04-16-[address] Douglas Ball MD Work Phone: -[facility] Start: 04-15-2025 End: 04-15-[address] Patricia Beckham MD -[facility] Work Phone: Start: 04-15-2025 End: 04-15-[address] Douglas Ball MD Work Phone: -[facility] Start: 04-09-2025 End: 04-09-[address] Ernesto Mendes MD -[facility] Work Phone: Start: 04-09-2025 End: 04-09-[address] Douglas Ball MD Work Phone: [facility] Work Phone: Start: 04-09-2025 End: 04-09-[address] Douglas Ball MD Work Phone: -Laboratory Specimen Start: 04-09-2025 End: 04-09-[address] Ernesto Mendes MD -Laboratory Specimen Work Phone: Start: 04-07-2025 End: 04-07-[address] Patricia Beckham MD -[facility] Work Phone: Start: 04-07-2025 End: 04-07-[address] Douglas Ball MD Work Phone: [facility] Work Phone: Start: 04-02-2025 End: 04-02-[address] Douglas Ball MD Work Phone: [facility] Work Phone: Start: 04-02-2025 End: 04-02-[address] Ernesto Mendes MD -[facility] Work Phone: Start: 04-02-2025 End: 04-02-2025 ambulatory Ernesto Mendes Facility:[facility] Start: 03-31-2025 End: 03-31-[address] Ernesto Mendes MD -[facility] Work Phone: Start: 03-31-2025 End: 03-31-[address] Douglas Ball MD Work Phone: [facility] Work Phone: Start: 03-19-2025 End: 03-19-[address] Douglas Ball MD Work Phone: [facility] Work Phone: Start: 03-19-2025 End: 03-19-[address] Douglas Ball MD -Laboratory Work Phone: Start: 03-19-2025 End: 03-19-2025 ambulatory Douglas Ball Facility:[facility] Start: 03-14-2025 ambulatory Zoran Mojica [facility] Start: 03-14-2025 Non-patient / Non-visit Dr. Zoran Mojica MD -[facility] Start: 03-14-2025 End: 03-14-2025 Emergency department patient visit Dr. Douglas Ball MD Work Phone: -Emergency Department Work Phone: Start: 09-18-2024 End: 09-18-2024 ambulatory [facility] Facility:[facility] Start: 07-11-2024 End: 07-11-2024 ambulatory Douglas [facility] Start: 09-11-2023 End: 09-11-[address] Douglas Ball Work Phone: [facility] Work Phone: Start: 09-11-2023 End: 09-11-[address] Douglas Ball Work Phone: [facility]-Laboratory, Phy Office 3rd Flr Start: 05-22-2023 End: 05-22-[address] Douglas Ball Work Phone: [facility] Work Phone: Start: 03-15-2023 End: 03-15-2023 ambulatory [facility] Work Phone: Start: 03-15-2023 End: 03-15-2023 Patient encounter procedure [facility]-Laboratory, Phy Office 3rd Flr Start: 03-10-2022 End: 03-10-2022 Patient encounter procedure [facility]-Laboratory, y Office 3rd Flr Procedures Date Procedure Procedure Detail Performing Clinician Start: 04-02-2025 CT of thorax with contrast Dr. Douglas Ball MD Work Phone: Start: 03-19-2025 Vitamin D, 25-hydrox y measurement Dr. Douglas Ball MD Work Phone: Comment on above: Vitamin D StatusDefi ciency: <20 ng/mL (50nmol/L)Insufficiency: 20-30 ng/mL (50-75 nmol/L)Sufficiency: 30-100 ng/mL (75-250 nmol/L)Toxicity: >100 ng/mL (>250 nmol/L) Start: 11-16-2020 History of coronary artery bypass grafting History of coronary artery bypass surgery Comment on above: CABG x2- BLEVINS to LAD ; CY/SVG (tandem graft via transverse sinus) to Ramus 11/25/20 @ [facility] [address] Antony Plan of Treatment Date Care Activity Detail Author Start: 04-07-2025 Patient referral [facility] Work Phone: Start: 03-31-2025 Patient referral [facility] Work Phone: Start: 03-14-2025 End: 03-14-[address] [facility] [address] Chest W contrast IV [facility] Patient Education ED Tumor, Unce rtain Cause [facility] Work Phone: Patient referral [facility] Work Phone: PET CT of whole body [facility] Immunizations Immunization Date Immunization Notes Care Provider Kiki martell 07-28-2020 Influenza virus vaccine [facility] Payers Date Payer Category Payer Self-pay [id number] 2023 Private Health Insurance [id number] 2004 Medicare [id number] Unknown [id number] 2.16.8 [id number] Unknown [id number] 2.16.8 [id number] Unknown [id number] 2.16.8 [id number] Unknown [id number] 2.16.8 [id number] Unknown [id number] 2.16.8 [id number] Unknown [id number] 2.16.8 [id number] Unknown [id number] 2.16.8 [id number] Unknown [id number] 2.16.8 [id number] Unknown [id number] 2.16.8 [id number] Unknown [id number] 2.16.8 [id number] Unknown [id number] 2.16.8 [id number] Unknown [id number] 2.16.8 [id number] Unknown [id number] 2.16.8 [id number] Unknown [id number] 2.16.8 [id number] Social History Date Type Detail Facility Start: 09-23-2021 End: 05-22-2023 Tobacco smoking status VAIS Unknown if ever smoked [facility] Start: 12-28-2020 None [facility] Start: 12-28-2020 Alone [facility] Start: 1940 Sex Assigned At Male [facility] Start: 03-14-2025 End: 04-07-2025 Tobacco smoking status NHIS Ex-smoker (finding) [facility] Clinical Notes 11-16-2020 to 04-15-2025 Note Date & Type Note Facility 04-15-2025 Progress note Note Date/Time April 15, 2025 12:46pm [facility] [address] [place] [address] OFFICE VISIT Date of Service: 04/15/25 1148 MR#: [id number] Acct: [id number] Name: TOM CUNNINGHAM Rep #: [id number] : 1940 From: Patricia dior MD Age/Sex: 84/M [place] [facility] Status: Signed HPI Subjective Date of Service 04/15/25 Chief Complaint Metastatic melanoma History of Present Illness 84-year-old male seen in consultation malignant neoplasm of the chest wall. The patient has 2 lesions: 1. Right nipple/areolar area painless progressively enlarging over the course of 2 to 3 months then becoming ulcerating and bleeding. Please see Dr. Samano's note of March 31, 2025 for an image of the lesion (was unable to copy and paste from medical record ) March 14, 2025 Right chest, mass, biopsy: - High grade malignant neoplasm involving the dermis/deep soft tissue (core biopsies). - No epidermal involvement observed in these sections (punch biopsy). - IHC for further classification is pending and the findings will be reported inan addendum ADDENDUM This addendum is added to incorporate an outside pathology consultation report. The case was examined at [facility] (#[id number]) and the following diagnosis was rendered. NTRK Fusion Interpretation: No NTRK 1, NTRK2, NTRK3, or other reportable gene fusions identified by RNA fusion panel (see comment). COMMENT: The suboptimal / hypocellular nature of this specimen resulted in reduced sequencing depth, which may decrease the sensitivity of this assay. Given the NTRK negative result, additional analysis was performed for 227 additional genes recurrently associated with gene fusions in solid tumors. Sample and run controls are adequate 2. A second lesion in the epigastric area that the patient reports he has had a birthmark for decades that again in the course of the past several weeks fewmonths started to ulcerate and bleed. Patient did not volunteer to provide thisinformation until I directly asked him about why he has a Band-Aid on his upper abdomen. April 09, 2025 A. Abdomen, right upper, lesion, excision: - Malignant melanoma with ulceration, involving the superior surgical margin. - Poli level IV, Breslow thickness 5 mm, [id number] SYNOPTIC REPORT TUMOR: Procedure: excision Specimen Laterality: right Tumor Site: skin, right upper abdomen Multiple Primary Sites (P=present, NA=not applicable): NA Histologic Type: melanoma nos Maximum Tumor (Breslow) Thickness in Millimeters (mm): 5 mm Ulceration (P=present. N=not identified): P Extent of Ulceration in Millimeters (mm): 7 mm Anatomic (Poli) Level: IV (melanoma invades reticular dermis) Mitotic Rate: 5 mitoses per mm2 Macroscopic Satellite Lesion(s): Not identified Microsatellite/s (P=present. N=not identified): N Lymphatic and/or Vascular Invasion (P=present. N=not identified): P Neurotropism (P=present. N=not identified): P Tumor-Infiltrating Lymphocytes: Present, brisk Tumor Regression: Not identified MARGINS: Margin Status for Melanoma _X_ Invasive melanoma present at margin Margin(s) Involved by Invasive Melanoma _X_ Peripheral: superior ___ Deep REGIONAL LYMPH NODES Regional Lymph Node Status: Not applicable (no regional lymph nodes submitted orfound) DISTANT METASTASIS Distant Site(s) Involved: skin, subcutaneous tissues of right chest wall pTNM CLASSIFICATION (AJCC 8th Edition) pT Category ___ pT not assigned (cannot be determined based on available pathological information) ___ pT0: No evidence of primary tumor (e.g., unknown primary or completely regressed melanoma) pT1: Melanoma 1.0 mm or less in thickness, ulceration status unknown or unspecified (see Note D) ___ pT1a: Melanoma less than 0.8 mm in thickness, without ulceration ___ pT1b: Melanoma less than 0.8 mm in thickness with ulceration; or Melanoma equal to or greater than 0.8 mm and less than or equal to 1.0 mm in thickness with or without ulceration ___ pT1 (subcategory cannot be determined) pT2: Melanoma greater than 1.0 to 2.0 mm in thickness, ulceration status unknownor unspecified ___ pT2a: Melanoma greater than 1.0 mm and less than or equal to 2.0 mm in thickness, without ulceration ___ pT2b: Melanoma greater than 1.0 mm and less than or equal to 2.0 mm in thickness, with ulceration ___ pT2 (subcategory cannot be determined) pT3: Melanoma greater than 2.0 to 4.0 mm in thickness, ulceration status unknownor unspecified ___ pT3a: Melanoma greater than 2.0 mm and less than or equal to 4.0 mm in thickness, without ulceration ___ pT3b: Melanoma greater than 2.0 mm and less than or equal to 4.0 mm in thickness, with ulceration ___ pT3 (subcategory cannot be determined) pT4: Melanoma greater than 4.0 mm in thickness, ulceration status unknown or unspecified ___ pT4a: Melanoma greater than 4.0 mm in thickness, without ulceration _X_ pT4b: Melanoma greater than 4.0 mm in thickness, with ulceration ___ pT4 (subcategory cannot be determined) pN Category _X_ pN not assigned (no nodes submitted or found) pM Category (required only if confirmed pathologically) ___ Not applicable - pM cannot be determined from the submitted specimen(s) pM1: Evidence of distant metastasis ([id number]) _X_ pM1a: Distant metastasis in skin (including subcutaneous tissues), soft tissues including muscle and / or non-regional lymph node(s) ___ pM1b: Distant metastasis to lung with or without M1a sites of disease ___ pM1c: Distant metastasis to non-[employer] visceral sites with or without M1a or M1b sites of disease ___ pM1d: Distant metastasis to [employer] with or without M1a, M1b, or M1c sites of disease ___ pM1 (subcategory cannot be determined) COMMENTS April 02, [address]: FINDINGS: Hardware: Sternal wires and mediastinal vascular clips Lymph nodes: No significant mediastinal, hilar or axillary lymphadenopathy. Small number of normal-sized lymph nodes in the right axilla somewhat more numerous perhaps in the left axilla. Heart and Vasculature: Extensive triple-vessel coronary artery disease and bypass grafting moderately extensive thoracic aorta atheromatous calcific plaque. Mild ectasia of the ascending aorta measuring 40.8 mm. 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 Centrilobular emphysema Pleura: Unremarkable. Upper Abdomen: The 1.5 cm indeterminate right adrenal nodule is identified. Left adrenal appears mildly hyperplastic without focal nodule. No acute process in the upper abdomen. Small hiatal hernia. Bones: No aggressive bone lesion. A 6.7 cm by 4 point 5 cm lesion appears to be emanating from the right areola. Male breast cancer is somewhat unusual, but not unheard of and should be the primary consideration among the differential diagnostic possibilities. IMPRESSION: Coronary artery calcification (CAC) is triple-vessel disease, moderately severe Large anterior right chest wall mass in the immediate subcutaneous space. Amenable to ultrasound-guided needle biopsy. [facility] Medical History (Updated 04/15/25 @ 13:[address] Patricia Beckham MD) Malignant melanoma COPD (chronic obstructive pulmonary disease) Essential hypertension Hyperlipidemia Open wound of left thigh Sepsis Abscess or cellulitis of thigh Atherosclerotic heart disease of [place] coronary artery without angina pectoris Non-rheumatic mitral regurgitation Pulmonary hypertension NSTEMI (non-ST elevated myocardial infarction) CHF (congestive heart failure) Surgical History History of external ear surgery History of coronary artery bypass surgery (~11/25/20) Family History Grandmother CAD (coronary artery disease) Father CAD (coronary artery disease) Social History Smoking Status: Former smoker Tobacco: How many years used: 20 alcohol intake: never substance use type: does not use caffeine: Yes Type: coffee Number of servings: 4 additional social history: pt denies vaping, pt denies marijuana, pt denies smoking pt uses ibuprofen as needed pt uses aspirin daily ROS Constitutional Constitutional: Reports systems reviewed and no addt'l complaints, except as documented; Denies anorexia or weight loss Eyes Eyes: Reports systems reviewed and no addt'l complaints, except as documented; Denies change in vision ENT HEENT: Reports systems reviewed and no addt'l complaints, except as documented; Denies mouth lesions Cardiovascular Cardiovascular: Reports systems reviewed and no addt'l complaints, except as documented; Denies chest pain with activity Respiratory/Chest Respiratory/Chest: Reports systems reviewed and no addt'l complaints, except as documented; Denies cough, dyspnea or hemoptysis Gastrointestinal Gastrointestinal: Reports systems reviewed and no addt'l complaints, except as documented; Denies abdominal pain or change in bowel habits Genitourinary Genitourinary: Reports systems reviewed and no addt'l complaints, except as documented Musculoskeletal Musculoskeletal: Reports systems reviewed and no addt'l complaints, except as documented, arthralgias, back pain and other Details: Joints and back pain are chronic did not appreciate the recent change Integumentary Integumentary: Reports as per HPI Neurologic Neurologic: Reports systems reviewed and no addt'l complaints, except as documented; Denies focal weakness, frequent falls or paresthesias Psychiatric Psychiatric: Reports systems reviewed and no addt'l complaints, except as documented Endocrine Endocrinology: Reports systems reviewed and no addt'l complaints, except as documented Hematologic/Lymphatic Hematologic/Lymphatic: Reports systems reviewed and no addt'l complaints, exceptas documented; Denies lymphadenopathy Intake Vital Signs 04/07/25 09:16 04/15/25 11:49 04/15/25 11:52 Height 5 ft 8 in 5 ft 8 in 5 ft 8 in Weight: 80.286 kg 80.456 kg BMI 26.9 26.9 BP 143/73 H 132/67 H Blood Pressure Location Lt brachial Rt brachial Position Sitting Sitting Respiration 16 16 Pulse 70 82 Pulse Source Monitor Monitor Temp 97.3 F L 97.3 F L Temperature Source Temporal Artery Temporal Artery Pulse Oximetry (%) 95 92 Oxygen Delivery Method room air room air Intake Is patient in pain?: No Allergies amoxicillin (From Augmentin) Allergy (Verified 04/15/25 11:51) Rash clavulanic acid (From Augmentin) Allergy (Verified 04/15/25 11:51) Rash Opioids - Morphine Analogues Adverse Reaction (Verified 04/15/25 11:51) Low blood pressure Medications ?Medication ?Instructions ?Recorded ?Confirmed ?Type tamsulosin 0.4 mg capsule 0.4 mg PO DAILY PROSTATE 04/15/25 History albuterol sulfate 2.5 mg/3 mL 2.5 mg inhalation Q6H MN N 12/09/21 07/01/25 History (0.083 %) solution for nebulization shortness of breat h or wheezing aspirin 81 mg tablet,delayed 81 mg PO DAILY #1 TAB 07/0604/15/25 Rx release furosemide 40 mg tablet 40 mg PO DAILY 04/04/2211/09 History metoprolol succinate 100 mg 50 mg PO BID 09/28/2211/09 History tablet,extended release 24 hr amlodipine 10 mg tablet 5 mg PO DAILY BP 12/21/23 History levothyroxine 125 mcg tablet 125 mcg PO DAILY 12/21/23 04/15/25 History atorvastatin 40 mg tablet 40 mg PO QHS for cholesterol #90 05/22/24 04/15/25 Rx TABLETS magnesium oxide 400 mg (241.3 mg 400 mg PO BID 5 04/15/25 History magnesium) tablet potassium chloride 10 mEq 10 meq PO DAILY 03/14/2511/09 History capsule,extended release Have you fallen in the past year?: No Central Venous Access Central Venous Access: No Exam Physical Exam Narrative ECOG 1 Const alert and oriented x3 General Appearance: frail Coding Level of Care Code Off vis,est,level 5 Exam Problem Focused Diagnoses Malignant melanoma, unspecified site C43.9 Melanoma location: unspecified site Malignant neoplasm of skin of chest C44.509 Assessment and Plan Assessment and Plan (1) Malignant melanoma: Status: Acute Qualifiers: Melanoma location: unspecified site Qualified Code(s): C43.9 - Malignant melanoma of skin, unspecified Comment: Right upper abdominal quadrant (2) Malignant neoplasm of skin of chest: Status: Acute Comment: Metastatic melanoma Plan 84-year-old male who presented with an enlarging right breast/nipple areolar mass appeared to originate in the breast area/subcutaneous tissues for 2 to 3 months with ulceration and bleeding biopsy confirms a malignant but further characterization could not be achieved with standard pathology and IHC and molecular studies are pending. Patient referred to a second ulcerated cutaneous lesion in the right upper quadrant of the abdomen that the patient reported used to be a longstanding birthmark. A biopsy of this lesion confirmed a deep malignant melanoma which most likely represents the primary with the metastatic lesion in the soft tissues of the chest wall. Chronic comorbid conditions: COPD, coronary artery disease, hypertension, dyslipidemia. Plan: 1. PET/CT to assess the extent of distant metastatic disease based on which palliative management of the bleeding lesions in the abdomen and chest will be determined (wide excision and/or radiation therapy) 2. Referred to palliative for symptom management and visiting nurse for wound care Patient was seen with his daughter impression and recommendations discussed. Patricia Beckham MD [employer], [facility] Divisions of Medical Oncology & Hematology Department of Internal Medicine [facility] [address] [address] This note was generated using a voice recognition system software. Although itwas reviewed by the author prior to finalization, it may still contain incorrectwords, spelling, and punctuation that were not noted when reviewing prior to saving. If a clinically significant typo or inaccurately typed phrase is noted, please notify the author. Clinical Quality Measures Falls Risk Screening/Assistive Devices Have you fallen in the past year?: No 04/15/25 1313 <Electronically signed by Patricia rush MD> Date _ Patricia Beckham MD [facility] Signature: Date (if applicable) CC: ~ [facility] Work Phone: [phone] [facility] [place] [address] OFFICE VISIT Date of Service: 04/15/25 1148 MR#: [id number] Acct: [id number] Name: TOM CUNNINGHAM Rep #: [id number] : 1940 From: Patricia dior MD Age/Sex: 84/M [place] [facility] [place]: Signed HPI Subjective Date of Service 04/15/25 Chief Complaint Metastatic melanoma History of Present Illness 84-year-old male seen in consultation malignant neoplasm of the chest wall. The patient has 2 lesions: 1. Right nipple/areolar area painless progressively enlarging over the course of 2 to 3 months thenbecoming ulcerating and bleeding. Please see Dr. Samano's note of March 31, 2025 for an image of the lesion (was unable to copy and paste from medical record ) March 14, 2025 Right chest, mass, biopsy: - High grade malignant neoplasm involving the dermis/deep soft tissue (core biopsies). - No epidermal involvement observed in these sections (punch biopsy). - IHC for further classification is pending and the findings will be reported inan addendum ADDENDUM This addendum is added to incorporate an outside pathology consultation report. The case was examined at [facility] (#[id number]) and the following diagnosis was rendered. NTRK Fusion Interpretation: No NTRK 1, NTRK2, NTRK3, or other reportable gene fusions identified by RNA fusion panel (see comment). COMMENT: The suboptimal / hypocellular nature of this specimen resulted in reduced sequencing depth, which may decrease the sensitivity of this assay. Given the NTRK negative result, additional analysis was performed for 227 additional genes recurrently associated with gene fusions in solid tumors. Sample and run controls are adequate 2. A second lesion in the epigastric area that the patient reports he has had a birthmark for decades that again in the course of the past several weeks fewmonths started to ulcerate and bleed. Patient did not volunteer to provide thisinformation until I directly asked him about why he has a Band-Aid on his upper abdomen. April 09, 2025 A. Abdomen, right upper, lesion, excision: - Malignant melanoma with ulceration, involving the superior surgical margin. - Poli level IV, Breslow thickness 5 mm, [id number] SYNOPTIC REPORT TUMOR: Procedure: excision Specimen Laterality: right Tumor Site: skin, right upper abdomen Multiple Primary Sites (P=present, NA=not applicable): NA Histologic Type: melanoma nos Maximum Tumor (Breslow) Thickness in Millimeters (mm): 5 mm Ulceration (P=present. N=not identified): P Extent of Ulceration in Millimeters (mm): 7 mm Anatomic (Poli) Level: IV (melanoma invades reticular dermis) Mitotic Rate: 5 mitoses per mm2 Macroscopic Satellite Lesion(s): Not identified Microsatellite/s (P=present. N=not identified): N Lymphatic and/or Vascular Invasion (P=present. N=not identified): P Neurotropism (P=present. N=not identified): P Tumor-Infiltrating Lymphocytes: Present, brisk Tumor Regression: Not identified MARGINS: Margin Status for Melanoma _X_ Invasive melanoma present at margin Margin(s) Involved by Invasive Melanoma _X_ Peripheral: superior ___ Deep REGIONAL LYMPH NODES Regional Lymph Node Status: Not applicable (no regional lymph nodes submitted orfound) DISTANT METASTASIS Distant Site(s) Involved: skin, subcutaneous tissues of right chest wall pTNM CLASSIFICATION (AJCC 8th Edition) pT Category ___ pT not assigned (cannot be determined based on available pathological information) ___ pT0: No evidence of primary tumor (e.g., unknown primary or completely regressed melanoma) pT1: Melanoma 1.0 mm or less in thickness, ulceration status unknown or unspecified (see Note D) ___ pT1a: Melanoma less than 0.8 mm in thickness, without ulceration ___ pT1b: Melanoma less than 0.8 mm in thickness with ulceration; or Melanoma equal to or greater than 0.8 mm and less than or equal to 1.0 mm in thickness with or without ulceration ___ pT1 (subcategory cannot be determined) pT2: Melanoma greater than 1.0 to 2.0 mm in thickness, ulceration status unknownor unspecified ___ pT2a: Melanoma greater than 1.0 mm and less than or equal to 2.0 mm in thickness, without ulceration ___ pT2b: Melanoma greater than 1.0 mm and less than or equal to 2.0 mm in thickness, with ulceration ___ pT2 (subcategory cannot be determined) pT3: Melanoma greater than 2.0 to 4.0 mm in thickness, ulceration status unknownor unspecified ___ pT3a: Melanoma greater than 2.0 mm and less than or equal to 4.0 mm in thickness, without ulceration ___ pT3b: Melanoma greater than 2.0 mm and less than or equal to 4.0 mm in thickness, with ulceration ___ pT3 (subcategory cannot be determined) pT4: Melanoma greater than 4.0 mm in thickness, ulceration status unknown or unspecified ___ pT4a: Melanoma greater than 4.0 mm in thickness, without ulceration _X_ pT4b: Melanoma greater than 4.0 mm in thickness, with ulceration ___ pT4 (subcategory cannot be determined) pN Category _X_ pN not assigned (no nodes submitted or found) pM Category (required only if confirmed pathologically) ___ Not applicable - pM cannot be determined from the submitted specimen(s) pM1: Evidence of distant metastasis ([id number]) _X_ pM1a: Distant metastasis in skin (including subcutaneous tissues), soft tissues including muscle and / or non-regional lymph node(s) ___ pM1b: Distant metastasis to lung with or without M1a sites of disease ___ pM1c: Distant metastasis to non-[employer]CHN[employer] visceral sites with or without M1a or M1b sites of disease ___ pM1d: Distant metastasis to [employer] with or without M1a, M1b, or M1c sites of disease ___ pM1 (subcategory cannot be determined) COMMENTS April 02, [address]: FINDINGS: Hardware: Sternal wires and mediastinal vascular clips Lymph nodes: No significant mediastinal, hilar or axillary lymphadenopathy. Small number of normal-sized lymph nodes in the right axilla somewhat more numerous perhaps in the left axilla. Heart and Vasculature: Extensive triple-vessel coronary artery disease and bypass grafting moderately extensive thoracic aorta atheromatous calcific plaque. Mild ectasia of the ascending aorta measuring 40.8 mm. 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 Centrilobular emphysema Pleura: Unremarkable. Upper Abdomen: The 1.5 cm indeterminate right adrenal nodule is identified. Left adrenal appears mildly hyperplastic without focal nodule. No acute process in the upper abdomen. Small hiatal hernia. Bones: No aggressive bone lesion. A 6.7 cm by 4 point 5 cm lesion appears to be emanating from the right areola. Male breast cancer is somewhat unusual, but not unheard of and should be the primary consideration among the differential diagnostic possibilities. IMPRESSION: Coronary artery calcification (CAC) is triple-vessel disease, moderately severe Large anterior right chest wall mass in the immediate subcutaneous space. Amenable to ultrasound-guided needle biopsy. [facility] Medical History (Updated 04/15/25 @ 13:[address] Patricia Beckham MD) Malignant melanoma COPD (chronic obstructive pulmonary disease) Essential hypertension Hyperlipidemia Open wound of left thigh Sepsis Abscess or cellulitis of thigh Atherosclerotic heart disease of [place] coronary artery without angina pectoris Non-rheumatic mitral regurgitation Pulmonary hypertension NSTEMI (non-ST elevated myocardial infarction) CHF (congestive heart failure) Surgical History History of external ear surgery History of coronary artery bypass surgery (~11/25/20) Family History Grandmother CAD (coronary artery disease) Father CAD (coronary artery disease) Social History Smoking Status: Former smoker Tobacco: How many years used: 20 alcohol intake: never substance use type: does not use caffeine: Yes Type: coffee Number of servings: 4 additional social history: pt denies vaping, pt denies marijuana, pt denies smoking pt uses ibuprofen as needed pt uses aspirin daily ROS Constitutional Constitutional: Reports systems reviewed and no addt'l complaints, except as documented; Denies anorexia or weight loss Eyes Eyes: Reports systems reviewed and no addt'l complaints, except as documented; Denies change in vision ENT HEENT: Reports systems reviewed and no addt'l complaints, except as documented; Denies mouth lesions Cardiovascular Cardiovascular: Reports systems reviewed and no addt'l complaints, except as documented; Denies chest pain with activity Respiratory/Chest Respiratory/Chest: Reports systems reviewed and no addt'l complaints, except as documented; Denies cough, dyspnea or hemoptysis Gastrointestinal Gastrointestinal: Reports systems reviewed and no addt'l complaints, except as documented; Denies abdominal pain or change in bowel habits Genitourinary Genitourinary: Reports systems reviewed and no addt'l complaints, except as documented Musculoskeletal Musculoskeletal: Reports systems reviewed and no addt'l complaints, except as documented, arthralgias, back pain and other Details: Joints and back pain are chronic did not appreciate the recent change Integumentary Integumentary: Reports as per HPI Neurologic Neurologic: Reports systems reviewed and no addt'l complaints, except as documented; Denies focal weakness, frequent falls or paresthesias Psychiatric Psychiatric: Reports systems reviewed and no addt'l complaints, except as documented Endocrine Endocrinology: Reports systems reviewed and no addt'l complaints, except as documented Hematologic/Lymphatic Hematologic/Lymphatic: Reports systems reviewed and no addt'l complaints, exceptas documented; Denies lymphadenopathy Intake Vital Signs 04/07/25 09:16 04/15/25 11:49 04/15/25 11:52 Height 5 ft 8 in 5 ft 8 in 5 ft 8 in Weight: 80.286 kg 80.456 kg BMI 26.9 26.9 BP 143/73 H 132/67 H Blood Pressure Location Lt brachial Rt brachial Position Sitting Sitting Respiration 16 16 Pulse 70 82 Pulse Source Monitor Monitor Temp 97.3 F L 97.3 F L Temperature Source Temporal Artery Temporal Artery Pulse Oximetry (%) 95 92 Oxygen Delivery Method room air room air Intake Is patient in pain?: No Allergies amoxicillin (From Augmentin) Allergy (Verified 04/15/25 11:51) Rash clavulanic acid (From Augmentin) Allergy (Verified 04/15/25 11:51) Rash Opioids - Morphine Analogues Adverse Reaction (Verified 04/15/25 11:51) Low blood pressure Medications ?Medication ?Instructions ?Recorded ?Confirmed ?Type tamsulosin 0.4 mg capsule 0.4 mg PO DAILY PROSTATE 04/15/25 History albuterol sulfate 2.5 mg/3 mL 2.5 mg inhalation Q6H MN N 09/23/21 04/15/25 History (0.083 %) solution for nebulization shortness of breat h or wheezing aspirin 81 mg tablet,delayed 81 mg PO DAILY #1 TAB 07/0604/15/25 Rx release furosemide 40 mg tablet 40 mg PO DAILY 04/04/2211/09 History metoprolol succinate 100 mg 50 mg PO BID 09/28/2211/09 History tablet,extended release 24 hr amlodipine 10 mg tablet 5 mg PO DAILY BP 12/21/23 History levothyroxine 125 mcg tablet 125 mcg PO DAILY 12/21/23 04/15/25 History atorvastatin 40 mg tablet 40 mg PO QHS for cholesterol #90 05/22/24 04/15/25 Rx TABLETS magnesium oxide 400 mg (241.3 mg 400 mg PO BID 5 04/15/25 History magnesium) tablet potassium chloride 10 mEq 10 meq PO DAILY 03/14/2511/09 History capsule,extended release Have you fallen in the past year?: No Central Venous Access Central Venous Access: No Exam Physical Exam Narrative ECOG 1 Const alert and oriented x3 General Appearance: frail Coding Level of Care Code Off vis,est,level 5 Exam Problem Focused Diagnoses Malignant melanoma, unspecified site C43.9 Melanoma location: unspecified site Malignant neoplasm of skin of chest C44.509 Assessment and Plan Assessment and Plan (1) Malignant melanoma: Status: Acute Qualifiers: Melanoma location: unspecified site Qualified Code(s): C43.9 - Malignant melanoma of skin, unspecified Comment: Right upper abdominal quadrant (2) Malignant neoplasm of skin of chest: Status: Acute Comment: Metastatic melanoma Plan 84-year-old male who presented with an enlarging right breast/nipple areolar mass appeared to originate in the breast area/subcutaneous tissues for 2 to 3 months with ulceration and bleeding biopsy confirms a malignant but further characterization could not be achieved with standard pathology and IHC and molecular studies are pending. Patient referred to a second ulcerated cutaneous lesion in the right upper quadrant of the abdomen that the patient reported used to be a longstanding birthmark. A biopsy of this lesion confirmed a deep malignant melanoma which most likely represents the primary with the metastatic lesion in the soft tissues of the chest wall. Chronic comorbid conditions: COPD, coronary artery disease, hypertension, dyslipidemia. Plan: 1. PET/CT to assess the extent of distant metastatic disease based on which palliative management of the bleeding lesions in the abdomen and chest will be determined (wide excision and/or radiation therapy) 2. Referred to palliative for symptom management and visiting nurse for wound care Patient was seen with his daughter impression and recommendations discussed. Patricia Beckham MD [employer]ician [employer], [facility] Divisions of Medical Oncology & Hematology Department of Internal Medicine [place] [facility] [place] [phone] This note was generated using a voice recognition system software. Although itwas reviewed by the author prior to finalization, it may still contain incorrectwords, spelling, and punctuation that were not noted when reviewing prior to saving. If a clinically significant typo or inaccurately typed phrase is noted, please notify the author. Clinical Quality Measures Falls Risk Screening/Assistive Devices Have you fallen in the past year?: No 04/15/25 1313 victor manuel CULLEN> Date _ Patricia Beckham MD [facility] Signature: Date (if applicable) CC: ~ [facility]06-25-2025 Progress [facility] Plastic & Reconstructive Surgery [address], [address] [place] [address] OFFICE VISIT Date of Service: 04/09/25 MR#: [id number] Acct: [id number] Name: TOM CUNNINGHAM Rep #: [id number] : 1940 Provider: Dr. Keith Mendes MD Age/Sex: 84/M Location: [facility] Status: Signed Intake Vital Signs 3 04/07/25 09:16 Height 5 ft 8 in Weight: 177 lb BMI 26.9 BP 143/73 H Blood Pressure Location Lt brachial Position Sitting Respiration 16 Pulse 70 Pulse Source Monitor Temp 97.3 F L Pulse Oximetry (%) 95 Oxygen Delivery Method room air Intake Visit Reasons: biopsy lesion abdomen Chief Complaint: Chest wall lesion Allergies amoxicillin (From Augmentin) Allergy (Verified 04/07/25 09:13) Rash clavulanic acid (From Augmentin) Allergy (Verified 04/07/25 09:13) Rash Opioids - Morphine Analogues Adverse Reaction (Verified 04/07/25 09:13) Low blood pressure Have you fallen in the past year?: No Nurse's Note: [facility] [id number] lot [id number] and lidocaine 1% w epi [facility] [id number] lot [id number] exp [facility] Medical History COPD (chronic obstructive pulmonary disease) Essential hypertension Hyperlipidemia Open wound of left thigh Sepsis Abscess or cellulitis of thigh Atherosclerotic heart disease of [place] coronary artery without angina pectoris Non-rheumatic mitral regurgitation Pulmonary hypertension NSTEMI (non-ST elevated myocardial infarction) CHF (congestive heart failure) Surgical History History of external ear surgery History of coronary artery bypass surgery (~11/25/20) Family History Grandmother CAD (coronary artery disease) Father CAD (coronary artery disease) Social History (Updated 04/07/25 @ 09:15 by Jennifer Rizzo) Smoking Status: Former smoker Tobacco: How many years used: 20 alcohol intake: never substance use type: does not use caffeine: Yes Type: coffee Number of servings: 4 additional social history: pt denies vaping, pt denies marijuana, pt denies smoking pt uses ibuprofen as needed pt uses aspirin daily HPI biopsy lesion abdomen Details: The patient is an 84-year-old male presenting with a right chest mass suspected to be a high-grade malignant neoplasm. The mass was initially thought to be an abscess and has been present for approximately three months, starting as a smallpimple and growing to the size of a pea before continuing toenlarge. The lesionis described as vascular and exophytic, located superior and lateral to the right nipple, with surrounding skin induration and mobility off the chest wall, indicating it is in the subcutaneous plane. 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 There is no history of other cancers or significant health problems reported, and the patient denies any lumps or bumps in the armpit. The patient is not on blood thinners and has no known bleeding or clotting disorders. The patient was seen and examined by Dr. Mojica as a consult in the emergency department who took some biopsies of the lesion, and then referred the patient to nh. Biopsy results from 14 Mar 2025 are as follows: OPERATION: Not noted PRE-OP DIAGNOSIS: Localized swelling, mass and lump, trunk, TISSUE SUBMITTED: A- Right chest mass biopsy MICROSCOPIC DIAGNOSIS A. Right chest, mass, biopsy: - High grade malignant neoplasm involving the dermis/deep soft tissue (core biopsies). - No epidermal involvement observed in these sections (punch biopsy). - IHC for further classification is pending and the findings will be reported inan addendum. These results were discussed with the patient and his adult daughter in clinic today Attestation: Documentation on this patient encounter was supported using ambient scribe technology/ voice AI technology. The patient consented to recording for the purpose of documenting the encounter. Provider reviewed content of the generatednote prior to signature. Lidocaine 1% w/ epi [id number] lot [id number] exp CURRENT ENCOUNTER, 09 April 2025: Patient here for a biopsy of abdominal lesion at the request of Dr. Holland. Final pathology stillpending with refards to the chest mass. Band aid was over this chest lesion last appointment. Patient reports it occuredfrom a previous birthmark (peña pigmented freckle) that began to change agent the past year and enlarge. Exam Details - Integumentary: Right chest mass, vascular, exophytic, superior and lateral to the right nipple, with surrounding skin induration, mobile off the chest wall, not involving muscle Approximately 9 x 9 cm Right upper abdomen lesion 4.2 x 2.2 cm . Ulcerated with melanocytic components/areas with differing pigments of brown/black. Bleeding when rubbed. Office Procedures Procedure Time Out Time Out Informed consent given: Yes Consent signed: Yes Time out checklist: patient, procedure, site marked/identified, positioning of patient, supplies available, allergies confirmed and team agrees on procedure Time out staff in room: Yes Time out verified: Yes Time out date: 04/09/25 Time out time: 16:24 Coding Level of Care Code Attention Guest Specialist Diagnoses Malignant neoplasm of skin of chest C44.509 Neoplasm of uncertain behavior of skin D48.5 Comment CPT: 32952, 90529 Assessment and Plan (No Qualifiers) Assessment and Plan (1) Malignant neoplasm of skin of chest: Status: Acute Plan: Plan from previous office visit. 1. 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 A CT scan of the chest with contrast is planned to assess the extent of the lesion. Referral to a surgical oncologist is recommended for further management, in cluding potential surgical excision with appropriate margins. - Follow up with the surgical oncologist as recommended. - Await results of the CT scan and further instructions from the healthcare provider. - Apply an ABD pad to the chest lesion daily to manage any bleeding. I will discuss pathology with the pathologist as we are currently awaiting finaldiagnosis of what kind of malignant neoplasm, which will guide treatment. CT scan will also guide treatment. Patient is going to talk to his daughter about this, but as of right now he doesnot want to go to another hospital and would like to stay in [place]. We can discuss options for resection at [place] once the lesion is better characterized, but I did discuss with them that I am not a surgical oncologist, but could discuss with Dr. Mojica options for excision, but the my first and foremost official recommendation is that they go to a surgical oncologist. Theywere happy with this plan and will further consider their options. (2) Neoplasm of uncertain behavior of skin: Status: Acute Comment: Left upper abdomen Plan: Plan from today: New problem. This is a concerning pigmented upper abdominal lesion. Excised today and sent for pathology. Plan PROCEDURE: Right upper abdominal lesion 1) Excision 4.2 x 2.2 cm lesion, CPT: 88185 2) Intermediate closure 6 cm abdominal lesion excision wound, CPT: 64111 Procedure details Skin lesion was marked with the patient and his daughter, they were in agreementwith the site marking. They were anesthetized with 10 cc of 1% lidocaine with 1-200,000 epinephrine and taken back to the procedure room where he was prepped and draped in sterile fashion and a proper timeout was performed. 15 blade scalpel was used to excise the lesion without any specific margins at this time for an excision of 4.2 x 2.2 cm. The excision was full-thickness including underlying subcutaneous tissue downto the fascia. Hemostasis was obtained with pen battery-powered Bovie electrocautery. The specimen was markedshort superior long lateral with a marking stitch. Copious amounts normal saline was used to irrigate the wound. The wound was closed with 2-0 PDS deep fascial sutures followed by 3-0 Monocryl deep dermal suture followed by 4-0 Monocryl running subcuticular suture. This was a 6 cm intermediate closure. Patient tolerated the procedure well. Dermabond and Steri-Strips were applied. Postoperative plan: Follow-up in 1 week for wound check and to review pathology I spoke with the pathologist on the phone about this lesion and my concerns withregards to this lesion and the other chest mass (possibly related) Clinical Quality Measures Falls Risk Screening/Assistive Devices Have you fallen in the past year?: No 04/09/25 1646 [place]> Date _ [facility]esto Mendes [facility] Signature: Date (if applicable) CC: ~ [facility]06-25-2025 Progress note Author Ernesto Mendes [facility] Note Date/Time April 09, 2025 4:46 pm [facility] [place] [facility] [address] [place] [address] OFFICE VISIT Date of Service: 04/09/25 MR#: [id number] Acct: [id number] Name: TOM CUNNINGHAM Rep #: [id number] : 1940 Provider: Dr. Keith Mendes MD Age/Sex: 84/M Location: [facility] Status: Signed Intake Vital Signs 3 04/07/25 09:16 Height 5 ft 8 in Weight: 177 lb BMI 26.9 BP 143/73 H Blood Pressure Location Lt brachial Position Sitting Respiration 16 Pulse 70 Pulse Source Monitor Temp 97.3 F L Pulse Oximetry (%) 95 Oxygen Delivery Method room air Intake Visit Reasons: biopsy lesion abdomen Chief Complaint: Chest wall lesion Allergies amoxicillin (From Augmentin) Allergy (Verified 04/07/25 09:13) Rash clavulanic acid (From Augmentin) Allergy (Verified 04/07/25 09:13) Rash Opioids - Morphine Analogues Adverse Reaction (Verified 04/07/25 09:13) Low blood pressure Have you fallen in the past year?: No Nurse's Note: [facility]ivicaine [facility] [id number] lot [id number] and lidocaine 1% w epi [facility] [id number] lot [id number] exp [facility] Medical History COPD (chronic obstructive pulmonary disease) Essential hypertension Hyperlipidemia Open wound of left thigh Sepsis Abscess or cellulitis of thigh Atherosclerotic heart disease of [place] coronary artery without angina pectoris Non-rheumatic mitral regurgitation Pulmonary hypertension NSTEMI (non-ST elevated myocardial infarction) CHF (congestive heart failure) Surgical History History of external ear surgery History of coronary artery bypass surgery (~11/25/20) Family History Grandmother CAD (coronary artery disease) Father CAD (coronary artery disease) Social History (Updated 04/07/25 @ 09:15 by Jennifer Rizzo) Smoking Status: Former smoker Tobacco: How many years used: 20 alcohol intake: never substance use type: does not use caffeine: Yes Type: coffee Number of servings: 4 additional social history: pt denies vaping, pt denies marijuana, pt denies smoking pt uses ibuprofen as needed pt uses aspirin daily HPI biopsy lesion abdomen Details: The patient is an 84-year-old male presenting with a right chest mass suspected to be a high-grade malignant neoplasm. The mass was initially thought to be an abscess and has been present for approximately three months, starting as a smallpimple and growing to the size of a pea before continuing to enlarge. The lesionis described as vascular and exophytic, located superior and lateral to the right nipple, with surrounding skin induration and mobility off the chest wall, indicating it is in the subcutaneous plane. 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 There is no history of other cancers or significant health problems reported, and the patient denies any lumps or bumps in the armpit. The patient is not on blood thinners and has no known bleeding or clotting disorders. The patient was seen and examined by Dr. Mojica as a consult in the emergency department who took some biopsies of the lesion, and then referred the patient to nh. Biopsy results from 14 Mar 2025 are as follows: OPERATION: Not noted PRE-OP DIAGNOSIS: Localized swelling, mass and lump, trunk, TISSUE SUBMITTED: A- Right chest mass biopsy MICROSCOPIC DIAGNOSIS A. Right chest, mass, biopsy: - High grade malignant neoplasm involving the dermis/deep soft tissue (core biopsies). - No epidermal involvement observed in these sections (punch biopsy). - IHC for further classification is pending and the findings will be reported inan addendum. These results were discussed with the patient and his adult daughter in clinic today Attestation: Documentation on this patient encounter was supported using ambient scribe technology/ voice AI technology. The patient consented to recording for the purpose of documenting the encounter. Provider reviewed content of the generatednote prior to signature. Lidocaine 1% w/ epi [id number] lot [id number] exp CURRENT ENCOUNTER, 09 April 2025: Patient here for a biopsy of abdominal lesion at the request of Dr. Holland. Final pathology still pending with refards to the chest mass. Band aid was over this chest lesion last appointment. Patient reports it occuredfrom a previous birthmark (peña pigmented freckle) that began to change agent the past year and enlarge. Exam Details - Integumentary: Right chest mass, vascular, exophytic, superior and lateral to the right nipple, with surrounding skin induration, mobile off the chest wall, not involving muscle Approximately 9 x 9 cm Right upper abdomen lesion 4.2 x 2.2 cm . Ulcerated with melanocytic components/areas with differing pigments of brown/black. Bleeding when rubbed. Office Procedures Procedure Time Out Time Out Informed consent given: Yes Consent signed: Yes Time out checklist: patient, procedure, site marked/identified, positioning of patient, supplies available, allergies confirmed and team agrees on procedure Time out staff in room: Yes Time out verified: Yes Time out date: 04/09/25 Time out time: 16:24 Coding Level of Care Code Attention Guest Specialist Diagnoses Malignant neoplasm of skin of chest C44.509 Neoplasm of uncertain behavior of skin D48.5 Comment CPT: 84777, 84254 Assessment and Plan (No Qualifiers) Assessment and Plan (1) Malignant neoplasm of skin of chest: Status: Acute Plan: Plan from previous office visit. 1. 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 A CT scan of the chest with contrast is planned to assess the extent of the lesion. Referral to a surgical oncologist is recommended for further management, including potential surgical excision with appropriate margins. - Follow up with the surgical oncologist as recommended. - Await results of the CT scan and further instructions from the healthcare provider. - Apply an ABD pad to the chest lesion daily to manage any bleeding. I will discuss pathology with the pathologist as we are currently awaiting finaldiagnosis of what kind of malignant neoplasm, which will guide treatment. CT scan will also guide treatment. Patient is going to talk to his daughter about this, but as of right now he doesnot want to go to another hospital and would like to stay in [place]. We can discuss options for resection at [place] once the lesion is better characterized, but I did discuss with them that I am not a surgical oncologist, but could discuss with Dr. Mojica options for excision, but the my first and foremost official recommendation is that they go to a surgical oncologist. Theywere happy with this plan and will further consider their options. (2) Neoplasm of uncertain behavior of skin: Status: Acute Comment: Left upper abdomen Plan: Plan from today: New problem. This is a concerning pigmented upper abdominal lesion. Excised today and sent for pathology. Plan PROCEDURE: Right upper abdominal lesion 1) Excision 4.2 x 2.2 cm lesion, CPT: 70106 2) Intermediate closure 6 cm abdominal lesion excision wound, CPT: 58249 Procedure details Skin lesion was marked with the patient and his daughter, they were in agreementwith the site marking. They were anesthetized with 10 cc of 1% lidocaine with 1- 200,000 epinephrine and taken back to the procedure room where he was prepped and draped in sterile fashion and a proper timeout was performed. 15 blade scalpel was used to excise the lesion without any specific margins at this time for an excision of 4.2 x 2.2 cm. The excision was full-thickness including underlying subcutaneous tissue down to the fascia. Hemostasis was obtained with pen battery-powered Bovie electrocautery. The specimen was markedshort superior long lateral with a marking stitch. Copious amounts normal saline was used to irrigate the wound. The wound was closed with 2-0 PDS deep fascial sutures followed by 3-0 Monocryl deep dermal suture followed by 4-0 Monocryl running subcuticular suture. This was a 6 cm intermediate closure. Patient tolerated the procedure well. Dermabond and Steri-Strips were applied. Postoperative plan: Follow-up in 1 week for wound check and to review pathology I spoke with the pathologist on the phone about this lesion and my concerns withregards to this lesion and the other chest mass (possibly related) Clinical Quality Measures Falls Risk Screening/Assistive Devices Have you fallen in the past year?: No 04/09/25 1646 <Electronically signed by Ernesto Mendes MD> Date _ Ernesto Mendes MD Cosigner Signature: Date (if applicable) CC: ~ [place] [facility] Work Phone: 1(396) 307-737106-18-2025 Radiology Diagnostic study note [facility] Services [address] [place] [address] Chest WITH Contrast MR#: [id number] Acct: [id number] Name: TOM CUNNINGHAM Rep #: [id number] : 1940 M 84 From: Pet er Peer DO PCP: Dr. Douglas Ball MD Status: BRITTNEY WILDER Study:Chest WITH Contrast Date of Exam: 04/02/25 Exam# [id number] Ordering Dr: Mis Mendes MD PROCEDURE: CHEST WITH CONTRAST 04/02/2025 REASON FOR EXAM: MASS ON RIGHT CHEST TECHNIQUE: CHEST WITH CONTRAST Coronal and Sagittal reconstruction series were provided. CONTRAST: Isovue-300 VOLUME: 68 mL One or more dose reduction techniques were used (e.g., Automated exposure control, adjustment of the mA and/or kV according to patient size, use of iterative reconstruction technique). RADIATION DOSE SUMMARY: CTDlvol: 15.19 and 11.51 mGy DLP: 395.44 mGycm COMPARISON: Chest radiograph October 14, 2021 FINDINGS: Hardware: Sternal wires and mediastinal vascular clips Lymph nodes: No significant mediastinal, hilar or axillary lymphadenopathy. Small number of normal-sized lymph nodes in the right axilla somewhat more numerous perhaps in the left axilla. Heart and Vasculature: Extensive triple-vessel coronary artery disease and bypass grafting moderately extensive thoracic aorta atheromatous calcific plaque. Mild ectasia of the ascending aorta measuring 40.8 mm. 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 Centrilobular emphysema Pleura: Unremarkable. Upper Abdomen: The 1.5 cm indeterminate right adrenal nodule is identified. Left adrenal appears mildly hyperplastic without focal nodule. No acute process in the upper abdomen. Small hiatal hernia. Bones: No aggressive bone lesion. A 6.7 cm by 4 point 5 cm lesion appears to be emanating from the right areola. Male breast cancer is somewhat unusual, but not unheard of and should be the primary consideration among the differential diagnostic possibilities. CT/Chest WITH Contrast IMPRESSION: Coronary artery calcification (CAC) is triple-vessel disease, moderately severe Large anterior right chest wall mass in the immediate subcutaneous space. Amenable to ultrasound-guided needle biopsy. Reading [facility] CC: Dr. Ernesto Mendes MD; Dr. Douglas Ball MD ~ Computer Publisher: Signed [facility]06-16-2025 Evaluation note* Diagnosis Onset Date Resolution Status Admit Date Malignant neoplasm of skin o f chest acute March 31, 2025 3:39pm [facility] Work Phone: 1(594) 157-868906-16-2025 Evaluation note* Diagnosis Onset Date Resolution Status Admit Date Malignant neoplasm of skin o f chest acute March 31, 2025 3:39pm Malignant neoplasm of skin o f chest acute April 07, 2025 8:47am [facility] Work Phone: 1(423) 694-328006-16-2025 Evaluation note* Diagnosis Onset Date Resolution Status Admit Date Malignant neoplasm of skin o f chest acute March 31, 2025 3:39pm Malignant neoplasm of skin o f chest acute April 07, 2025 8:47am Malignant neoplasm of skin o f chest acute April 09, 2025 3:32pm Neoplasm of uncertain behavi or of skin acute April 09, 2025 3:32pm [facility] Work Phone: 1([phone]) 885-151306-16-2025 Evaluation note* Diagnosis Onset Date Resolution Status Admit Date Malignant neoplasm of skin o f chest acute March 31, 2025 3:39pm Malignant neoplasm of skin o f chest acute April 07, 2025 8:47am Malignant neoplasm of skin o f chest acute April 09, 2025 3:32pm Neoplasm of uncertain behavi or of skin acute April 09, 2025 3:32pm Malignant melanoma acute April 152024 11:43am Malignant neoplasm of skin o f chest acute April 15, 2025 1 1:43am [facility] Work Phone: 1(447) 127-945605-30-2025 Consult note [facility] Medical Records Department [address] [place] [address] Consultation - Surgical 03/14/25 1256 MR#: [id number] Acct: [id number] Name: TOM CUNNINGHAM Rep #:[id number] : 1940 84 From: Zoran Mojica MD PCP: Dr. Douglas Ball MD Status:REG E R Location: ED Assessment & Plan Assessment/Plan (1) Mass of chest wall, right: PLAN: Plan The patient is an 84-year-old male with a highly suspicious mass involving the chest just above theright nipple. I am concerned about malignancy. Biopsies were performed at the time he was seen in the ER. I will contact him with results once they become available. HPI Consult Data Date of Consult: 03/14/25 HPI Narrative Reason for Consultation: Right chest mass HPI Narrative: TOM CUNNINGHAM, is a 84 M who presents to the emergency department earlier todaywith a 3 to 4-week history of a right chest mass. Patient states that this has become larger. He brought this to the attention of his son. He originally was scheduled to meet with his PCP next week however his son prompted him to be seensooner and brought him to the emergency room. He was seen by the ER staff. No blood work or imaging were warranted. Surgical consult was obtained for evaluation as this was not felt to be an abscess as the patient thought. Obviously concern for malignancy is of high concern. [facility] Medical History (Updated 03/14/25 @ 12:[address] Kb Yañez MD) COPD (chronic obstructive pulmonary disease) Essential hypertension Hyperlipidemia Open wound of left thigh Sepsis Abscess or cellulitis of thigh Atherosclerotic heart disease of [place] coronary artery without angina pectoris Non-rheumatic mitral regurgitation Pulmonary hypertension NSTEMI (non-ST elevated myocardial infarction) CHF (congestive heart failure) Home Medications ?Medication ?Instructions ?Recorded ?Last Taken ?Type tamsulosin 0.4 mg capsule 0.4 mg PO DAILY PROSTATE 03/13/25 History albuterol sulfate 2.5 mg/3 mL 2.5 mg inhalation Q6H MN N 09/23/21 Unknown History (0.083 %) solution for nebulization shortness of breat h or wheezing aspirin 81 mg tablet,delayed 81 mg PO DAILY #1 TAB 07/0603/13/25 Rx release furosemide 40 mg tablet 40 mg PO DAILY 04/04/2202/14 History metoprolol succinate 100 mg 50 mg PO BID 09/28/2202/15 History tablet,extended release 24 hr amlodipine 10 mg tablet 5 mg PO DAILY BP 12/21/23 History levothyroxine 125 mcg tablet 125 mcg PO DAILY 12/21/23 03/13/25 History atorvastatin 40 mg tablet 40 mg PO QHS for cholesterol #90 05/22/24 03/13/25 Rx TABLETS magnesium oxide 400 mg (241.3 mg 400 mg PO BID 5 03/13/25 History magnesium) tablet potassium chloride 10 mEq 10 meq PO DAILY 03/14/25 History capsule,extended release Allergy/AdvReac Type Severity Reaction Status Date / Time amoxicillin (From Augmentin) Allergy Rash Verified 03/14/25 10:15 clavulanic acid (From Allergy Rash Verified 03/14/25 10:15 Augmentin) Opioids - Morphine Analogues AdvReac Low blood Verified 03/14/25 10:15 pressure Family History Grandmother CAD (coronary artery disease) Father CAD (coronary artery disease) Surgical History History of external ear surgery History of coronary artery bypass surgery (~11/25/20) Social History Smoking Status: Former smoker alcohol intake: never substance use type: does not use caffeine: Yes Type: coffee Number of servings: 4 Physical Exam Const alert, oriented x3 and no apparent distress HEENT normocephalic Eyes PERRL Chest Chest Narrative: Examination of the right chest reveals about a 4 cm diameter raised exophytic mass. There is areas of purplish discoloration consistent with hemorrhage. Thebase of this is actually probably 7 to 8 cmin diameter and fairly firm. This does not seem consistent with a purulent abscess. I would be concerned about malignancy of some form whether breast versus even possibly of a sarcoma. I recommended and performed a biopsy in the emergency room. The area was prepped and draped in the usual manner. Local anesthetic was infiltrated. I performed a skin punch biopsy at the base of the lesion. Also several random core biopsies were performed as well. Tissue was sent to pathology for review. Hemostasis was achieved using electrocautery as well as silver nitrate. He tolerated the procedure well. 03/14/25 1303 Cosigner Signature (if applicable): CC: Dr. Douglas Ball MD~ Signed [facility]05-30-2025 Discharge summary [facility] Medical Records Department [address] [place] [address] Emergency Department Summary 03/14/25 MR#: [id number] Acct: [id number] Name: TOM CUNNINGHAM Rep #:[id number] : 1940 84 From: Kb Yañez MD PCP: Dr. Douglas Ball MD Status:REG E R Location: ED HPI History of Present Illness Chief Complaint: Abscess Informant: patient Narrative Narrative: 84-year-old male has had a mass on his right chest wall/breast for the past 3 weeks. He states it started out as a small bump/pimple, was sore, but the pain went away and now he has some occasional bleeding but no pain. He has had no other discharge. He denies any systemic symptoms or fever/chills.He states hewas going to wait till he saw his doctor, he has a scheduled appointment in a couple weeks, but his son saw it and brought him to the ER to have it evaluated. [facility] Medical History (Updated 03/14/25 @ 12:[address] Kb Yañez MD) COPD (chronic obstructive pulmonary disease) Essential hypertension Hyperlipidemia Open wound of left thigh Sepsis Abscess or cellulitis of thigh Atherosclerotic heart disease of [place] coronary artery without angina pectoris Non-rheumatic mitral regurgitation Pulmonary hypertension NSTEMI (non-ST elevated myocardial infarction) CHF (congestive heart failure) Home Medications ?Medication ?Instructions ?Recorded ?Last Taken ?Type tamsulosin 0.4 mg capsule 0.4 mg PO DAILY PROSTATE 03/13/25 History albuterol sulfate 2.5 mg/3 mL 2.5 mg inhalation Q6H MN N 09/23/21 Unknown History (0.083 %) solution for nebulization shortness of breat h or wheezing aspirin 81 mg tablet,delayed 81 mg PO DAILY #1 TAB 07/0603/13/25 Rx release furosemide 40 mg tablet 40 mg PO DAILY 04/04/2202/14 History metoprolol succinate 100 mg 50 mg PO BID 09/28/2202/15 History tablet,extended release 24 hr amlodipine 10 mg tablet 5 mg PO DAILY BP 12/21/23 History levothyroxine 125 mcg tablet 125 mcg PO DAILY 12/21/23 03/13/25 History atorvastatin 40 mg tablet 40 mg PO QHS for cholesterol #90 05/22/24 03/13/25 Rx TABLETS magnesium oxide 400 mg (241.3 mg 400 mg PO BID 5 03/13/25 History magnesium) tablet potassium chloride 10 mEq 10 meq PO DAILY 03/14/25 History capsule,extended release Allergy/AdvReac Type Severity Reaction Status Date / Time amoxicillin (From Augmentin) Allergy Rash Verified 03/14/25 10:15 clavulanic acid (From Allergy Rash Verified 03/14/25 10:15 Augmentin) Opioids - Morphine Analogues AdvReac Low blood Verified 03/14/25 10:15 pressure Family History Grandmother CAD (coronary artery disease) Father CAD (coronary artery disease) Surgical History History of external ear surgery History of coronary artery bypass surgery (~11/25/20) Social History Smoking Status: Former smoker alcohol intake: never substance use type: does not use caffeine: Yes Type: coffee Number of servings: 4 ROS ROS ED Constitutional Constitutional ED: Denies chills or fever(s) Eyes Eyes: Denies change in vision or diplopia ENT ENT ED: Denies rhinorrhea or sore throat Cardiovascular Cardiovascular: Denies chest pain or palpitations Respiratory/Chest Respiratory/Chest: Denies cough or dyspnea Gastrointestinal Gastrointestinal: Denies abdominal pain, diarrhea, nausea or vomiting Genitourinary Genitourinary ED: Denies dysuria or hematuria Musculoskeletal Musculoskeletal: Denies back pain or neck pain Integumentary Denies abscess or rash Neurologic Neurologic: Denies headache(s), paresthesias or weakness Psychiatric Psychiatric: Denies anxiety or suicidal thoughts EXAM Physical Exam Const Vital Signs: 03/14/25 10:13 03/14/25 11:15 03/14/25 12:12 Temperature 97.7 F L 97.7 F L Temperature Source Temporal Oral Pulse Rate 93 87 Respiratory Rate 17 20 H Blood Pressure 164/76 H 114/65 134/79 H Blood Pressure Mean 105 81 97 Pulse Ox 96 93 Oxygen Delivery Method Room Air Positive well nourished and well developed General Appearance ED: well developed and NAD HEENT Reports moist mucous membranes normocephalic and atraumatic Eyes PERRL and EOMs intact bilaterally Neck full ROM and supple Chest Wall Chest Narrative: 4 cm in diameter exophytic mass right breast just to the right and superior to the nipple/areola, does not necessarily seem to involve them and there is no discharge from the nipple. There is some blood on the bandage but no active bleeding from this. I can move around and palpate the base of it, there is no pain or tenderness with this. It is erythematous. Resp normal respiratory effort and clear to auscultation bilaterally Cardio regular rate, regular rhythm and no murmurs Back/Spine no CVA tenderness General Back: other FROM Extremity normal to inspection General Extremety ED: Negative for edema General Extremity: Negative for edema Neuro oriented x3, CN's II-XII intact bilaterally and no sensory deficits noted Sensorium / Orientation: awake and alert Motor Exam: strength 5/5 throughout Skin Skin Narrative: Right breast exophytic mass see above. No other rashes or lesions. MDM MDM MDM Narrative Medical decision making narrative: This appears more likely to be some type of mass rather than an abscess. I discussed with surgery Dr. Mojica who evaluated the patient in the ER, he is in agreement and did a couple biopsies, and confirms as a result it is not an abscess. He will see the patient is an outpatient after biopsies come back and we will be in touch with the patient. Management Discussion w/another healthcare provider: It Admin (Surgery Dr. Mojica) Discharge Plan Triage Chief Complaint: Abscess ED Provider: Kb Yañez Dx/Rx/DC Orders Clinical Impression: Mass of chest wall, right Instructions: ED Tumor, Uncertain Cause Prescriptions: No Action albuterol sulfate 2.5 mg /3 mL (0.083 %) solution for nebulization 2.5 mg inhalation Q6H PRN (Reason: shortness of breath or wheezing) Patient Comments: PT NEVER NEEDS TO USE aspirin 81 mg tablet,delayed release (DR/EC) 81 mg PO DAILY Qty: 1 0RF metoprolol succinate 100 mg tablet extended release 24 hr 50 mg PO BID furosemide 40 mg tablet 40 mg PO DAILY levothyroxine 125 mcg tablet 125 mcg PO DAILY amlodipine 10 mg tablet 5 mg PO DAILY potassium chloride 10 mEq capsule, extended release 10 meq PO DAILY magnesium oxide 400 mg (241.3 mg magnesium) tablet 400 mg PO BID tamsulosin 0.4 mg capsule 0.4 mg PO DAILY atorvastatin 40 mg tablet 40 mg PO QHS Qty: 90 3RF Primary Care Provider: Douglas Ball Chi Referrals: Zoran Mojica MD [Med Staff - Active Staff] - 1-2 Weeks Print Language: Eritrean Disposition Disposition: Home, Self Care What to do if you have Problems For any increased pain, shortness of breath, bleeding, nausea or vomiting, chestpain, or any unexpected problems, contact your Primary Care Provider. Call [facility] ([phone]) or report tothe closest Emergency Room. Call 911 if necessary. 03/14/25 1258 Cosigner Signature (if applicable): CC: Dr. Douglas Ball MD ~ Signed [facility]03-17-2021 NoteHNO ID: [id number] Author: Sally Ortez Service: ? Author Type: Nurse Practitioner Type: Progress Notes Filed: 12/30/2020 8:42 AM Note Text: Esophagram 12/17/20: FINDINGS: There is no demonstrated esophageal foreign body. There is no demonstrated stricture or mucosal abnormality. There is a small hiatal hernia of the fundus of the stomach. The patient refused to ingest the 12 mm tablet of barium. Normal visualized aortic arch and descending thoracic aorta. Normal visualized pulmonary parenchyma. Normal visualized osseous structures of the thorax. RAD/Esophagus Dual Contrast IMPRESSION: Small sliding hiatal hernia without reflux.[facility]03-01-2021 NoteHNO ID: [id number] Author: Mariya Hernandez (Pa) Service: ? Author Type: Physician Supervisor [employer] Type: Progress Notes Filed: 12/14/2020 8:41 AM Note Text: This note was created using Netatmoriter. Subjective Tom Ibrahim is a 80 year old male. HPI Patient presents with feeling like his pills are getting stuck in his esophagus. He had a double bypass about a month ago. He states about 2 weeks after his surgery he felt like he started to get his pills stuck in his throat/upper esophagus. He states it is painful. Sometimes he feels like it is stuck for 3 or 4 hours and then will eventually go down. He did start multiple new medications after his surgery. Denies history of esophageal stricture or GERD. He has not had an endoscopy that he knows of. No fever or chills. No cough or congestion. He has been trying to take his pills with applesauce. No vomiting or pain in his chest. Review of Systems HENT: Negative. Eyes: Negative. Respiratory: Negative for chest tightness and shortness of breath. Cardiovascular: Negative for chest pain and leg swelling. Gastrointestinal: Negative for abdominal distention, abdominal pain, constipation, diarrhea, nausea and vomiting. Pills getting stuck in esophagus Musculoskeletal: Negative for back pain. All other systems reviewed and are negative. History reviewed. No pertinent past medical history. Current Outpatient Medications Medication Sig Dispense Refill - amiodarone (PACERONE) 200 mg tablet Take 200 mg by mouth. - metoprolol tartrate, short acting, (LOPRESSOR) 25 mg tablet Take 12.5 mg by mouth. - furosemide (LASIX) 20 mg tablet Take by mouth. - tamsulosin (FLOMAX) 0.4 mg Take 0.4 mg by mouth. - magnesium oxide 400 mg magnesium cap Take 400 mg by mouth. - amLODIPine (NORVASC) 10 mg tablet Take 10 mg by mouth once daily. - atorvastatin (LIPITOR) 40 mg tablet Take 40 mg by mouth. - aspirin 81 mg chewable tablet Take 81 mg by mouth. - levothyroxine (SYNTHROID) 100 mcg tablet Take 100 mcg by mouth. - clopidogrel (PLAVIX) 75 mg tablet Take 75 mg by mouth. - pantoprazole DR (PROTONIX) 40 mg tablet Take 1 tablet by mouth daily before breakfast. Take on empty stomach, 1/2 hr before meal. 30 tablet 0 No current facility-administered medications for this visit. History reviewed. No pertinent surgical history. History reviewed. No pertinent family history. Social History Tobacco Use - Smoking status: Former Smoker - Smokeless tobacco: Never Used Substance Use Topics - Alcohol use: Not on file - Drug use: Not on file Objective BP 126/76 Pulse 118 Temp 36.8 ?C (98.2 ?F) (Tympanic) Resp 18 Wt 85.7 kg (189 lb) SpO2 95% Physical Exam Vitals reviewed. Constitutional: Appearance: Normal appearance. HENT: Head: Normocephalic and atraumatic. Mouth/Throat: Mouth: Mucous membranes are dry. Pharynx: Oropharynx is clear. No oropharyngeal exudate or posterior oropharyngeal erythema. Cardiovascular: Rate and Rhythm: Normal rate and regular rhythm. Heart sounds: Normal heart sounds. Pulmonary: Effort: Pulmonary effort is normal. Breath sounds: Normal breath sounds. Abdominal: General: Abdomen is flat. Tenderness: There is no abdominal tenderness. There is no guarding. Musculoskeletal: Cervical back: Neck supple. Lymphadenopathy: Cervical: No cervical adenopathy. Skin: General: Skin is warm and dry. Neurological: Mental Status: He is alert. Assessment and Plan ASSESSMENT/PLAN: 1. 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 She did recommend a PPI, I did use pantoprazole so it would not interact with his Plavix. I did call the patient and let him know his medication was sent into the pharmacy and also recommended that he make sure he drinks fluid prior to taking pills, with the pill and after pills. I did let him know his appointment time as well with Dalila Ortez. Discussed red flag symptoms to go to the ER. Patient agreeable with plan. TOMMIE [facility]02-01-2021 Evaluation note* Diagnosis Onset Date Resolution Status Cardiomyopathy, ischemic acu te Essential hypertension chron ic History of coronary artery bypass surgery November, chronic Hyperlipidemia chronic [facility] Work Phone: Consult note Author Zoran Mojica [facility] Note Date/Time March 14, 2025 1:03p m [facility] Medical Records Department [address] [place] [address] Consultation - Surgical 03/14/25 1256 MR#: [id number] Acct: [id number] Name: TOM CUNNINGHAM Rep #:[id number] : 1940 84 From: Zoran Mojica MD PCP: Dr. Douglas Ball MD Status:REG E R Location: ED Assessment & Plan Assessment/Plan (1) Mass of chest wall, right: PLAN: Plan The patient is an 84-year-old male with a highly suspicious mass involving the chest just above the right nipple. I am concerned about malignancy. Biopsies were performed at the time he was seen in the ER. I will contact him with results once they become available. HPI Consult Data Date of Consult: 03/14/25 HPI Narrative Reason for Consultation: Right chest mass HPI Narrative: TOM CUNNINGHAM, is a 84 M who presents to the emergency department earlier todaywith a 3 to 4-week history of a right chest mass. Patient states that this has become larger. He brought this to the attention of his son. He originally was scheduled to meet with his PCP next week however his son prompted him to be seensooner and brought him to the emergency room. He was seen by the ER staff. No blood work or imaging were warranted. Surgical consult was obtained for evaluation as this was not felt to be an abscess as the patient thought. Obviously concern for malignancy is of high concern. [facility] Medical History (Updated 03/14/25 @ 12:[address] Kb Yañez MD) COPD (chronic obstructive pulmonary disease) Essential hypertension Hyperlipidemia Open wound of left thigh Sepsis Abscess or cellulitis of thigh Atherosclerotic heart disease of [place] coronary artery without angina pectoris Non-rheumatic mitral regurgitation Pulmonary hypertension NSTEMI (non-ST elevated myocardial infarction) CHF (congestive heart failure) Home Medications ?Medication ?Instructions ?Recorded ?Last Taken ?Type tamsulosin 0.4 mg capsule 0.4 mg PO DAILY PROSTATE 03/13/25 History albuterol sulfate 2.5 mg/3 mL 2.5 mg inhalation Q6H MN N 09/23/21 Unknown History (0.083 %) solution for nebulization shortness of breat h or wheezing aspirin 81 mg tablet,delayed 81 mg PO DAILY #1 TAB 07/0603/13/25 Rx release furosemide 40 mg tablet 40 mg PO DAILY 04/04/2202/14 History metoprolol succinate 100 mg 50 mg PO BID 09/28/2202/15 History tablet,extended release 24 hr amlodipine 10 mg tablet 5 mg PO DAILY BP 12/21/23 History levothyroxine 125 mcg tablet 125 mcg PO DAILY 12/21/23 03/13/25 History atorvastatin 40 mg tablet 40 mg PO QHS for cholesterol #90 05/22/24 03/13/25 Rx TABLETS magnesium oxide 400 mg (241.3 mg 400 mg PO BID 5 03/13/25 History magnesium) tablet potassium chloride 10 mEq 10 meq PO DAILY 03/14/25 History capsule,extended release Allergy/AdvReac Type Severity Reaction Status Date / Time amoxicillin (From Augmentin) Allergy Rash Verified 03/14/25 10:15 clavulanic acid (From Allergy Rash Verified 03/14/25 10:15 Augmentin) Opioids - Morphine Analogues AdvReac Low blood Verified 03/14/25 10:15 pressure Family History Grandmother CAD (coronary artery disease) Father CAD (coronary artery disease) Surgical History History of external ear surgery History of coronary artery bypass surgery (~11/25/20) Social History Smoking Status: Former smoker alcohol intake: never substance use type: does not use caffeine: Yes Type: coffee Number of servings: 4 Physical Exam Const alert, oriented x3 and no apparent distress HEENT normocephalic Eyes PERRL Chest Chest Narrative: Examination of the right chest reveals about a 4 cm diameter raised exophytic mass. There is areas of purplish discoloration consistent with hemorrhage. Thebase of this is actually probably 7 to 8 cm in diameter and fairly firm. This does not seem consistent with a purulent abscess. I would be concerned about malignancy of some form whether breast versus even possibly of a sarcoma. I recommended and performed a biopsy in the emergency room. The area was prepped and draped in the usual manner. Local anesthetic was infiltrated. I performed a skin punch biopsy at the base of the lesion. Also several random core biopsies were performed as well. Tissue was sent to pathology for review. Hemostasis was achieved using electrocautery as well as silver nitrate. He tolerated the procedure well. 03/14/25 1303 <Electronically signed by Zoran Mojica MD> Cosigner Signature (if applicable): CC: Dr. Douglas Ball MD~ Signed [facility] Work Phone: Discharge summary Author Kb Yañez [facility] Note Date/Time March 14, 2025 12:58 pm [facility] Medical Records Department [address] [place] [id number] Emergency Department Summary 03/14/25 MR#: [id number] Acct: [id number] Name: TOM CUNNINGHAM Rep #:[id number] : 1940 84 From: Kb Yañez MD PCP: Dr. Douglas Ball MD Status:REG E R Location: ED HPI History of Present Illness Chief Complaint: Abscess Informant: patient Narrative Narrative: 84-year-old male has had a mass on his right chest wall/breast for the past 3 weeks. He states it started out as a small bump/pimple, was sore, but the pain went away and now he has some occasional bleeding but no pain. He has had no other discharge. He denies any systemic symptoms or fever/chills. He states hewas going to wait till he saw his doctor, he has a scheduled appointment in a couple weeks, but his son saw it and brought him to the ER to have it evaluated. [facility] Medical History (Updated 03/14/25 @ 12:[address] Kb Yañez MD) COPD (chronic obstructive pulmonary disease) Essential hypertension Hyperlipidemia Open wound of left thigh Sepsis Abscess or cellulitis of thigh Atherosclerotic heart disease of [place] coronary artery without angina pectoris Non-rheumatic mitral regurgitation Pulmonary hypertension NSTEMI (non-ST elevated myocardial infarction) CHF (congestive heart failure) Home Medications ?Medication ?Instructions ?Recorded ?Last Taken ?Type tamsulosin 0.4 mg capsule 0.4 mg PO DAILY PROSTATE 03/13/25 History albuterol sulfate 2.5 mg/3 mL 2.5 mg inhalation Q6H MN N 09/23/21 Unknown History (0.083 %) solution for nebulization shortness of breat h or wheezing aspirin 81 mg tablet,delayed 81 mg PO DAILY #1 TAB 07/0603/13/25 Rx release furosemide 40 mg tablet 40 mg PO DAILY 04/04/22 05/07/10 History metoprolol succinate 100 mg 50 mg PO BID 09/28/2202/15 History tablet,extended release 24 hr amlodipine 10 mg tablet 5 mg PO DAILY BP 12/21/23 History levothyroxine 125 mcg tablet 125 mcg PO DAILY 12/21/23 03/13/25 History atorvastatin 40 mg tablet 40 mg PO QHS for cholesterol #90 05/22/24 03/13/25 Rx TABLETS magnesium oxide 400 mg (241.3 mg 400 mg PO BID 5 03/13/25 History magnesium) tablet potassium chloride 10 mEq 10 meq PO DAILY 03/14/25 History capsule,extended release Allergy/AdvReac Type Severity Reaction Status Date / Time amoxicillin (From Augmentin) Allergy Rash Verified 03/14/25 10:15 clavulanic acid (From Allergy Rash Verified 03/14/25 10:15 Augmentin) Opioids - Morphine Analogues AdvReac Low blood Verified 03/14/25 10:15 pressure Family History Grandmother CAD (coronary artery disease) Father CAD (coronary artery disease) Surgical History History of external ear surgery History of coronary artery bypass surgery (~11/25/20) Social History Smoking Status: Former smoker alcohol intake: never substance use type: does not use caffeine: Yes Type: coffee Number of servings: 4 ROS ROS ED Constitutional Constitutional ED: Denies chills or fever(s) Eyes Eyes: Denies change in vision or diplopia ENT ENT ED: Denies rhinorrhea or sore throat Cardiovascular Cardiovascular: Denies chest pain or palpitations Respiratory/Chest Respiratory/Chest: Denies cough or dyspnea Gastrointestinal Gastrointestinal: Denies abdominal pain, diarrhea, nausea or vomiting Genitourinary Genitourinary ED: Denies dysuria or hematuria Musculoskeletal Musculoskeletal: Denies back pain or neck pain Integumentary Denies abscess or rash Neurologic Neurologic: Denies headache(s), paresthesias or weakness Psychiatric Psychiatric: Denies anxiety or suicidal thoughts EXAM Physical Exam Const Vital Signs: 03/14/25 10:13 03/14/25 11:15 03/14/25 12:12 Temperature 97.7 F L 97.7 F L Temperature Source Temporal Oral Pulse Rate 93 87 Respiratory Rate 17 20 H Blood Pressure 164/76 H 114/65 134/79 H Blood Pressure Mean 105 81 97 Pulse Ox 96 93 Oxygen Delivery Method Room Air Positive well nourished and well developed General Appearance ED: well developed and NAD HEENT Reports moist mucous membranes normocephalic and atraumatic Eyes PERRL and EOMs intact bilaterally Neck full ROM and supple Chest Wall Chest Narrative: 4 cm in diameter exophytic mass right breast just to the right and superior to the nipple/areola, does not necessarily seem to involve them and there is no discharge from the nipple. There is some blood on the bandage but no active bleeding from this. I can move around and palpate the base of it, there is no pain or tenderness with this. It is erythematous. Resp normal respiratory effort and clear to auscultation bilaterally Cardio regular rate, regular rhythm and no murmurs Back/Spine no CVA tenderness General Back: other FROM Extremity normal to inspection General Extremety ED: Negative for edema General Extremity: Negative for edema Neuro oriented x3, CN's II-XII intact bilaterally and no sensory deficits noted Sensorium / Orientation: awake and alert Motor Exam: strength 5/5 throughout Skin Skin Narrative: Right breast exophytic mass see above. No other rashes or lesions. MDM MDM MDM Narrative Medical decision making narrative: This appears more likely to be some type of mass rather than an abscess. I discussed with surgery Dr. Mojica who evaluated the patient in the ER, he is in agreement and did a couple biopsies, and confirms as a result it is not an abscess. He will see the patient is an outpatient after biopsies come back and we will be in touch with the patient. Management Discussion w/another healthcare provider: It Admin (Surgery Dr. Mojica) Discharge Plan Triage Chief Complaint: Abscess ED Provider: Kb Yañez Dx/Rx/DC Orders Clinical Impression: Mass of chest wall, right Instructions: ED Tumor, Uncertain Cause Prescriptions: No Action albuterol sulfate 2.5 mg /3 mL (0.083 %) solution for nebulization 2.5 mg inhalation Q6H PRN (Reason: shortness of breath or wheezing) Patient Comments: PT NEVER NEEDS TO USE aspirin 81 mg tablet,delayed release (DR/EC) 81 mg PO DAILY Qty: 1 0RF metoprolol succinate 100 mg tablet extended release 24 hr 50 mg PO BID furosemide 40 mg tablet 40 mg PO DAILY levothyroxine 125 mcg tablet 125 mcg PO DAILY amlodipine 10 mg tablet 5 mg PO DAILY potassium chloride 10 mEq capsule, extended release 10 meq PO DAILY magnesium oxide 400 mg (241.3 mg magnesium) tablet 400 mg PO BID tamsulosin 0.4 mg capsule 0.4 mg PO DAILY atorvastatin 40 mg tablet 40 mg PO QHS Qty: 90 3RF Primary Care Provider: Douglas Ball Chi Referrals: Zoran Mojica MD [Med Staff - Active Staff] - 1-2 Weeks Print Language: Eritrean Disposition Disposition: Home, Self Care What to do if you have Problems For any increased pain, shortness of breath, bleeding, nausea or vomiting, chestpain, or any unexpected problems, contact your Primary Care Provider. Call [facility] ([phone]) or report to the closest Emergency Room. Call 911 if necessary. 03/14/25 1258 <Electronically signed by Kb Yañez MD> Cosigner Signature (if applicable): CC: Dr. Douglas Ball MD ~ Signed [facility] Work Phone: Evaluation noteNo assessment information available [facility] Work Phone: Hospital Discharge instructionsAmbulatory Orders* General Surgery Location: None Selected [facility] Work Phone: Hospital Discharge instructionsAmbulatory Orders* Home Health Location: None Selected * Palliative Medicine Location: None Selected [facility] Work Phone: Reason for referral (narrative)No reason for referral [facility] Work Phone: Summary Purpose Family History No Family History Records Found Relationship Condition Age at Onset Recorded Date/T gwen grandmother Coronary artery disease Unknown father Coronary artery disease Unknown Advance Directives No Advanced Directives Records Found Advance Directive Response Recorded Date/ Time Advance Directives Yes November 17, 2020 10:05am Living Will No December 28, 2020 2:06pm Power of Clothing Sorter No December 28 2:06pm Advance Directive Response Recorded Date/ Time Advance Directives Yes November 17, 2020 9:05am Living Will No December 28, 2020 1:06pm Power of Clothing Sorter No December 28 1:06pm Advance Directive Response Recorded Date/ Time Do you have a Healthcare Power of Clothing Sorter? Yes March 14, 2025 10:35am Advance Directives Yes November 17, 2020 10:05am Chief Complaint and Reason for Visit Chief Complaint 1 Y FU Reason for Visit Cardiomyopathy, isch emic Essential hypertension History of coronary artery bypass surgery Hyperlipidemia Chief Complaint Admit Date abscess March 14, 2025 10:12 am abscess March 14, 2025 12:56 pm Chief Complaint Admit Date abscess March 14, 2025 10:12 am abscess March 14, 2025 12:56 pm MASS ON CHEST March 31, 2025 3:39 pm Chief Complaint Admit Date abscess March 14, 2025 10:12 am abscess March 14, 2025 12:56 pm MASS ON CHEST March 31, 2025 3:39 pm MASS ON RIGHT CHEST April 02, 2025 12:5 7pm MALIGNANT NEWOPLAS OF CHEST WALL April 072024 8:47am Reason for Visit Admit Date Malignant neoplasm of skin of chest March 31, 2025 3:39pm Reason for Visit Admit Date Malignant neoplasm of skin of chest March 31, 2025 3:39pm Malignant neoplasm of skin of chest April 07, 2025 8:47am Chief Complaint Admit Date abscess March 14, 2025 10:12 am abscess March 14, 2025 12:56 pm MASS ON CHEST March 31, 2025 3:39 pm MASS ON RIGHT CHEST April 02, 2025 12:5 7pm MALIGNANT NEWOPLAS OF CHEST WALL April 072024 8:47am biopsy lesion abdomen April 09, 2025 3: 32pm Reason for Visit Admit Date Malignant neoplasm of skin of chest March 31, 2025 3:39pm Malignant neoplasm of skin of chest April 07, 2025 8:47am Malignant neoplasm of skin of chest April 09, 2025 3:32pm Neoplasm of uncertain behavior of skin [facility] 2024 3:32pm Chief Complaint Admit Date abscess March 14, 2025 10:12 am abscess March 14, 2025 12:56 pm MASS ON CHEST March 31, 2025 3:39 pm MASS ON RIGHT CHEST April 02, 2025 12:5 7pm MALIGNANT NEWOPLAS OF CHEST WALL April 072024 8:47am EXCISION ABD LESION April 09, 2025 12:0 0am biopsy lesion abdomen April 09, 2025 3: 32pm Chief Complaint Admit Date abscess March 14, 2025 10:12 am abscess March 14, 2025 12:56 pm MASS ON CHEST March 31, 2025 3:39 pm MASS ON RIGHT CHEST April 02, 2025 12:5 7pm MALIGNANT NEWOPLAS OF CHEST WALL April 072024 8:47am EXCISION ABD LESION April 09, 2025 12:0 0am biopsy lesion abdomen April 09, 2025 3: 32pm REVIEW PATH April 15, 2025 11:43 am Reason for Visit Admit Date Malignant neoplasm of skin of chest March 31, 2025 3:39pm Malignant neoplasm of skin of chest April 07, 2025 8:47am Malignant neoplasm of skin of chest April 09, 2025 3:32pm Neoplasm of uncertain behavior of skin [facility] 2024 3:32pm Malignant melanoma April 15, 2025 11:43 am Malignant neoplasm of skin of chest April 15, 2025 11:43am Chief Complaint Admit Date abscess March 14, 2025 10:12 am abscess March 14, 2025 12:56 pm MASS ON CHEST March 31, 2025 3:39 pm MASS ON RIGHT CHEST April 02, 2025 12:5 7pm MALIGNANT NEWOPLAS OF CHEST WALL April 072024 8:47am EXCISION ABD LESION April 09, 2025 12:0 0am biopsy lesion abdomen April 09, 2025 3: 32pm REVIEW PATH April 15, 2025 11:43 am post op April 16, 2025 3:45p m Additional Source Comments (unrecognized sect ion and content) No Status Records FoundNo Status Records FoundNo Status Records Found INFORMATION SOURCE (unrecogn ized section and content) DATE CREATED AUTHOR 11/13/2021 [facility] DATE CREATED AUTHOR AUTHOR'S ORGANIZ ATION 04/17/2025 [facility] DATE CREATED AUTHOR AUTHOR'S ORGANIZ ATION 04/20/2025 [facility] Goals (unrecognized section and content) Goals may be documented in a n alternate sectionGoals may be documented in an alternate sectionGoals may be documented in an alternate sectionGoals may be documented in an alternate sectionGoals may be documented in an alternate sectionGoals may be documented in an alternate sectionGoals may be documented in an alternate sectionGoals may be documented in an alternate sectionGoals may be documented in an alternate sectionGoals may be documented in an alternate sectionGoals may be documented in an alternate sectionGoals may be documented in an alternate sectionGoals may be documented in an alternate section Care Teams (unrecognized sec tion and content) Team Status: Active Member Role Status Dates Dr. Douglas Ball MD Family Provider Active Dr. Douglas Ball MD Primary Care Provider Active Team Status: Inactive Member Role Status Dates Dr. Douglas Ball MD Primary Care Provider, Attending Provider Active Team Status: Inactive Member Role Status Dates Dr. Douglas Ball MD Primary Care Provider, Referring Provider Active Chicho Cohn CHILD CUSTODY EVALUATOR, CHILD CUSTODY EVALUATOR-C Attending Provider Active Team Status: Active Member Role Status Dates Dr. Douglas Ball MD Primary Care Provider Active Team Status: Inactive Member Role Status Dates Dr. Douglas Ball MD Primary Care Provider Active Start: March 14, 2025 End: March 14, 2025 Dr. Kb Yañez MD Emergency Provider Active Start: March 14, 2025 End: March 14, 2025 Team Status: Active Member Role Status Dates Dr. Douglas Ball MD Primary Care Provider Active Start: March 14, 2025 Dr. Kb Yañez MD Emergency Provider Active Start: March 14, 2025 Dr. Zoran Mojica MD Attending Provider Active Start: March 14, 2025 Team Status: Inactive Member Role Status Dates Dr. Douglas Ball MD Primary Care Provider Active Start: March 14, 2025 End: March 14, 2025 Dr. Kb Yañez MD Attending Provider Active Start: March 14, 2025 End: March 14, 2025 Dr. Kb Yañez MD Emergency Provider Active Start: March 14, 2025 End: March 14, 2025 Team Status: Inactive Member Role Status Dates Dr. Douglas Ball MD Primary Care Provider Active Start: March 19, 2025 End: March 19, 2025 Dr. Douglas Ball MD Attending Provider Active Start: March 19, 2025 End: March 19, 2025 Dr. Douglas Ball MD Referring Provider Active Start: March 19, 2025 End: March 19, 2025 Team Status: Inactive Member Role Status Dates Dr. Douglas Ball MD Primary Care Provider Active Start: March 31, 2025 End: March 31, 2025 Dr. Douglas Ball MD Referring Provider Active Start: March 31, 2025 End: March 31, 2025 Dr. Ernesto Mnedes MD Attending Provider Active Start: March 31, 2025 End: March 31, 2025 Team Status: Active Member Role Status Dates Dr. Douglas Ball MD Primary Care Provider Active Start: April 02, 2025 Dr. Ernesto Mendes MD Attending Provider Active Start: April 02, 2025 Dr. Ernesto Mendes MD Referring Provider Active Start: April 02, 2025 Team Status: Inactive Member Role Status Dates Dr. Douglas Ball MD Primary Care Provider Active Start: April 07, 2025 End: April 07, 2025 Dr. Douglas Ball MD Referring Provider Active Start: April 07, 2025 End: April 07, 2025 Dr. Patricia Beckham MD Attending Provider Active Start: April 07, 2025 End: April 07, 2025 Team Status: Inactive Member Role Status Dates Dr. Douglas Ball MD Primary Care Provider Active Start: April 02, 2025 End: April 02, 2025 Dr. Ernesto Mendes MD Attending Provider Active Start: April 02, 2025 End: April 02, 2025 Dr. Ernesto Mendes MD Referring Provider Active Start: April 02, 2025 End: April 02, 2025 Team Status: Inactive Member Role Status Dates Dr. Douglas Ball MD Primary Care Provider Active Start: April 09, 2025 End: April 09, 2025 Dr. Douglas Ball MD Referring Provider Active Start: April 09, 2025 End: April 09, 2025 Dr. Ernesto Mendes MD Attending Provider Active Start: April 09, 2025 End: April 09, 2025 Team Status: Active Member Role/Relationship Status Dates Dr. Douglas Ball MD Primary Care Provider Active Team Status: Inactive Member Role/Relationship Status Dates Dr. Douglas Ball MD Primary Care Provider Active Start: March 14, 2025 End: March 14, 2025 Dr. Kb Yañez MD Attending Provider Active Start: March 14, 2025 End: March 14, 2025 Dr. Kb Yañez MD Emergency Provider Active Start: March 14, 2025 End: March 14, 2025 Team Status: Active Member Role/Relationship Status Dates Dr. Douglas Ball MD Primary Care Provider Active Start: March 14, 2025 Dr. Kb Yañez MD Emergency Provider Active Start: March 14, 2025 Dr. Zoran Mojica MD Attending Provider Active Start: March 14, 2025 Team Status: Inactive Member Role/Relationship Status Dates Dr. Douglas Ball MD Primary Care Provider Active Start: March 19, 2025 End: March 19, 2025 Dr. Douglas Ball MD Attending Provider Active Start: March 19, 2025 End: March 19, 2025 Dr. Douglas Ball MD Referring Provider Active Start: March 19, 2025 End: March 19, 2025 Team Status: Inactive Member Role/Relationship Status Dates Dr. Douglas Ball MD Primary Care Provider Active Start: March 31, 2025 End: March 31, 2025 Dr. Douglas Ball MD Referring Provider Active Start: March 31, 2025 End: March 31, 2025 Dr. Ernesto Mendes MD Attending Provider Active Start: March 31, 2025 End: March 31, 2025 Team Status: Inactive Member Role/Relationship Status Dates Dr. Douglas Ball MD Primary Care Provider Active Start: April 02, 2025 End: April 02, 2025 Dr. Ernesto Mendes MD Attending Provider Active Start: April 02, 2025 End: April 02, 2025 Dr. Ernesto Mendes MD Referring Provider Active Start: April 02, 2025 End: April 02, 2025 Team Status: Inactive Member Role/Relationship Status Dates Dr. Douglas Ball MD Primary Care Provider Active Start: April 07, 2025 End: April 07, 2025 Dr. Douglas Ball MD Referring Provider Active Start: April 07, 2025 End: April 07, 2025 Dr. Patricia Beckham MD Attending Provider Active Start: April 07, 2025 End: April 07, 2025 Team Status: Inactive Member Role/Relationship Status Dates Dr. Douglas Ball MD Primary Care Provider Active Start: April 09, 2025 End: April 09, 2025 Dr. Ernesto Mendes MD Attending Provider Active Start: April 09, 2025 End: April 09, 2025 Dr. Ernesto Mendes MD Referring Provider Active Start: April 09, 2025 End: April 09, 2025 Team Status: Inactive Member Role/Relationship Status Dates Dr. Douglas Ball MD Primary Care Provider Active Start: April 09, 2025 End: April 09, 2025 Dr. Douglas Ball MD Referring Provider Active Start: April 09, 2025 End: April 09, 2025 Dr. Ernesto Mendes MD Attending Provider Active Start: April 09, 2025 End: April 09, 2025 Team Status: Inactive Member Role/Relationship Status Dates Dr. Douglas Ball MD Primary Care Provider Active Start: April 15, 2025 End: April 15, 2025 Dr. Douglas Ball MD Referring Provider Active Start: April 15, 2025 End: April 15, 2025 Dr. Patricia Beckham MD Attending Provider Active Start: April 15, 2025 End: April 15, 2025 Team Status: Inactive Member Role/Relationship Status Dates Dr. Douglas Ball MD Primary Care Provider Active Start: April 16, 2025 End: April 16, 2025 Dr. Douglas Ball MD Referring Provider Active Start: April 16, 2025 End: April 16, 2025 Dr. Ernesto Mendes MD Attending Provider Active Start: April 16, 2025 End: April 16, 2025 FOR RECORDS PERTAINING TO PATIENTS WHO ARE OR HAVE BEEN ENROLLED IN A CHEMICAL DEPENDENCY/SUBSTANCEABUSE PROGRAM, SOME INFORMATION MAY BE OMITTED. This clinical summary was aggregated from multiple sources. Caution should be exercised in using it in the provision of clinical care. This summary normalizes information from multiple sources, and as a consequence, information in this document may materially change the coding, format and clinical context of patient data. In addition, data may be omitted in some cases. CLINICAL DECISIONS SHOULD BE BASED ON THE PRIMARY CLINICAL RECORDS. [facility]. provides no warranty or guarantee of the accuracy or completeness of information in this document.
--- NOTE | 2025-04-25 06:46 | PCM.PRE.AN2 ---
ASA Classification* ASA Classification ASA Classification: 3 Assessment & Plan Anesthesia* Anesthesia Assessment Anesthesia Assessment: Discussed sedation and/or anesthesia options, risks, benefits, and alternatives with patient/parents/legal guardian/POA. Questions invited. The patient/parents/legal guardian/POA seems to understand and agrees to proceed with anesthesia plan. Reviewed the physical assessment, medical history, allergy history and patient home medications list prior to surgery/procedure/anesthetic and documented any changes. Performed airway and anesthesia risk assessments. Anesthesia Type Anesthesia Type: MAC Anesthesia Focused Assessment* Airway Assessment Mouth opens: >3 cm Mallampati Score: II Labs Anesthesia Preop lab: CBC WBC 9.3 K/mm3 (4.4-11.0) 03/19/25 10:03/19/25 RBC 4.07 M/mm3 (4.6-6.2) L 03/19/25 10:03/19/25 Hgb 12.2 g/dL (13.0-16.5) L 03/19/25 10:03/19/25 Hct 37.0 % (40-54) L 03/19/25 10:03/19/25 Plt Count 180 K/mm3 (150-450) 03/19/25 10:03/19/25 CHEMISTRY Potassium 4.3 mmol/L (3.3-5.1) 03/19/25 10:03/19/25 Sodium 139 mmol/L (133-145) 03/19/25 10:03/19/25 Magnesium 2.0 mg/dL (1.6-2.6) 09/15/20 15:00 09/15/20 Phosphorus 3.1 mg/dL (2.5-4.9) 09/15/20 15:00 09/15/20 BUN 13 mg/dL (4-19) 03/19/25:03/19/25 Creatinine 0.99 mg/dL (0.70-1.20) 03/19/25 10:03/19/25 Glucose 115 mg/dL (70-99) H 03/19/25 10:03/19/25 TSH 1.880 uIU/mL (0.300-4.200) 03/19/25 10:03/19/25 COAG PT 13.8 SECONDS (11.7-14.9) 12/28/20 09:35 12/28/20 Pre-Assessment Diagnosis/Proposed Procedure Planned Operative Procedure(s): (R) Excision for margins right chest melanoma( primary lesion with primary closure Anesthesia History Anesthesia History - office executive: Anesthesia History - office executive Hx Hospitalization No 04/24/25 16:02 Any Problems With Anesthesia No 04/24/25 16:02 Cholinesterase deficiency No 04/24/25 16:02 You/Your Family Experience No 04/24/25 16:02 fever (hyperthermia) with Relationship Recent Exposure to Contagious Disease Does patient have nerve No 04/24/25 16:02 stimulator Patient instructed to have device shut off --Does patient have Pacemaker or ICD? When Was Last Pacemaker Check QUESTION #4 FULL TEXT: You/Your Family Experience fever (hyperthermia) with Anesthesia Last Oral Intake Last Oral intake: Last Oral Intake NPO since Meds taken in AM with sips of water? Meds patient instructed to take am of surgery PONV PONV - office executive: PONV - office executive Female No 04/24/25 16:02 HX of Motion Sickness No 04/24/25 16:02 HX of N/V After Surgery No 04/24/25 16:02 Non-Smoker Yes 04/24/25 16:02 Duration of Surgery greater Yes 04/24/25 16:02 than 60 minutes Number of Risk Factors 2 04/24/25 16:02 PONV Score Moderate Risk 04/24/25 16:02 Height & Weight Height & Weight: Anesthesia: Height & Weight Height 5 ft 8 in 04/16/25 15:56 Respiratory Assessment Respiratory Assessment - office executive: Respiratory Tract Infection Hx - office executive Hx Respiratory Tract Infection No 04/24/25 16:02 STOP Sleep Apnea STOP Sleep Apnea - office executive: STOP Sleep Apnea - office executive Hx Hypertension Yes: PER PT, CONTROLLED ON 04/24/25 16:02 MEDS Hx Sleep Apnea No 04/24/25 16:02 CPAP BIPAP Do you snore loudly (louder Yes 04/24/25 16:02 than talking or can be heard Do you often feel tired/ No 04/24/25 16:02 fatigued/ sleepy during daytime? Has anyone observed you stop No 04/24/25 16:02 breathing during sleep? STOP Results Positive 04/24/25 16:02 QUESTION #5 FULL TEXT : Do you snore loudly (louder than talking or can be heard through closed doors)? 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 Specify any problems Hx of Preganancy in last 3 N/A 04/24/25 16:02 Months Nurse Filling Out Transfusion MGRIFFITH 04/24/25 16:02 & Questions: Date: 04/24/25 04/24/25 16:02 Time: 16:04 04/24/25 16:02 Patient unable to answer at this time (ie. confused, unrespo /Reproduction History /Reproductive History - office executive: /Reproductive Hx- office executive Hx Now Gestational Age (in weeks): EDC: Hx Hx Para Hx Section SAB Active Medications Active Medications: Current Medications Generic Name Dose Route Start Last Admin Trade Name Freq PRN Reason Stop Dose Admin Clindamycin Phosphate 900 mg in 50 mls @ 75 mls/hr 04/25/25 09:00 Cleocin IV 04/25/25 09:39 INTRAOP ONE Lactated Ringer's 1,000 mls @ 15 mls/hr 04/25/25 06:45 IV .Q48H GAGAN PFSH Medical History Loss of hearing Edentulous Anxiety Thyroid disease Prostate disease Easy bruising Blackout Chronic cough Former smoker History of irregular heartbeat History of echocardiogram Cardiology follow-up encounter Malignant melanoma COPD (chronic obstructive pulmonary disease) Essential hypertension Hyperlipidemia Open wound of left thigh Sepsis Abscess or cellulitis of thigh Atherosclerotic heart disease of [place] coronary artery without angina pectoris Non-rheumatic mitral regurgitation Pulmonary hypertension NSTEMI (non-ST elevated myocardial infarction) CHF (congestive heart failure) Home Medications ?Medication ?Instructions ?Recorded ?Last Taken ?Type tamsulosin 0.4 mg capsule 0.4 mg PO DAILY PROSTATE 11/30/20 03/13/25 History albuterol sulfate 2.5 mg/3 mL 2.5 mg inhalation Q6H PRN 09/23/21 Unknown History (0.083 %) solution for nebulization shortness of breath or wheezing aspirin 81 mg tablet,delayed 81 mg PO DAILY #1 TAB 09/23/21 03/13/25 Rx release furosemide 40 mg tablet 40 mg PO DAILY 04/04/22 03/13/25 History metoprolol succinate 100 mg 50 mg PO BID 09/28/22 03/14/25 History tablet,extended release 24 hr amlodipine 10 mg tablet 5 mg PO DAILY BP 12/21/23 03/13/25 History levothyroxine 125 mcg tablet 125 mcg PO DAILY 12/21/23 03/13/25 History atorvastatin 40 mg tablet 40 mg PO QHS for cholesterol #90 05/22/24 03/13/25 Rx TABLETS magnesium oxide 400 mg (241.3 mg 400 mg PO BID 03/14/25 03/13/25 History magnesium) tablet potassium chloride 10 mEq 10 meq PO DAILY 03/14/25 03/13/25 History capsule,extended release Allergy/AdvReac Type Severity Reaction Status Date / Time amoxicillin (From Augmentin) Allergy Rash Verified 04/24/25 15:59 clavulanic acid (From Allergy Rash Verified 04/24/25 15:59 Augmentin) oxycodone AdvReac Intermediate OTHER Verified 04/24/25 15:59 Opioids - Morphine Analogues AdvReac Low blood Verified 04/24/25 15:59 pressure Family History Grandmother CAD (coronary artery disease) Father CAD (coronary artery disease) Surgical History History of external ear surgery History of coronary artery bypass surgery (~11/25/20) Social History Smoking Status: Former smoker Tobacco: How many years used: 20 alcohol intake: never substance use type: does not use caffeine: Yes Type: coffee Number of servings: 4 additional social history: pt denies vaping, pt denies marijuana, pt denies smoking pt uses ibuprofen as needed pt uses aspirin daily Review of Systems (Anesthesia) ROS Narrative System reviewed and no additional complaints, except as documented.
[2025-04-25] MEDS: Lactated Ringers 1,000 ML 15 ML IV (06:57)
--- NOTE | 2025-04-25 08:12 | HP.PCM.SX_ITS ---
HPI - General HPI Narrative JENNIFER CUNNINGHAM, is a 84 M who presents with melanoma on chest. Here for excision of scar for local control of the primary tumor. [facility] Medical History Loss of hearing Edentulous Anxiety Thyroid disease Prostate disease Easy bruising Blackout Chronic cough Former smoker History of irregular heartbeat History of echocardiogram Cardiology follow-up encounter Malignant melanoma COPD (chronic obstructive pulmonary disease) Essential hypertension Hyperlipidemia Open wound of left thigh Sepsis Abscess or cellulitis of thigh Atherosclerotic heart disease of [place] coronary artery without angina pectoris Non-rheumatic mitral regurgitation Pulmonary hypertension NSTEMI (non-ST elevated myocardial infarction) CHF (congestive heart failure) Home Medications ?Medication ?Instructions ?Recorded ?Last Taken ?Type tamsulosin 0.4 mg capsule 0.4 mg PO DAILY PROSTATE 04/24/25 History albuterol sulfate 2.5 mg/3 mL 2.5 mg inhalation Q6H SC N 09/23/21 Unknown History (0.083 %) solution for nebulization shortness of breat h or wheezing aspirin 81 mg tablet,delayed 81 mg PO DAILY #1 TAB 07/0604/21/25 Rx release furosemide 40 mg tablet 40 mg PO DAILY 04/04/2204/15 History metoprolol succinate 100 mg 50 mg PO BID 09/28/2204/15 History tablet,extended release 24 hr amlodipine 10 mg tablet 5 mg PO DAILY BP 12/21/23 History levothyroxine 125 mcg tablet 125 mcg PO DAILY 12/21/23 04/24/25 History atorvastatin 40 mg tablet 40 mg PO QHS for cholesterol #90 05/22/24 04/24/25 Rx TABLETS magnesium oxide 400 mg (241.3 mg 400 mg PO BID 5 04/24/25 History magnesium) tablet potassium chloride 10 mEq 10 meq PO DAILY 03/14/2508/09 History capsule,extended release cetirizine 10 mg tablet (24Hour 10 mg PO DAILY PRN all ergy symptoms 04/25/25 04/25/25 History Allergy) Allergy/AdvReac Type Severity Reaction Status Date / Time amoxicillin (From Augmentin) Allergy Rash Verified 04/25/25 06:51 clavulanic acid (From Allergy Rash Verified 04/25/25 06:51 Augmentin) oxycodone AdvReac Intermediate OTHER Verified 04/25/25 06:51 Opioids - Morphine Analogues AdvReac Low blood Verified 04/25/25 06:51 pressure Family History Grandmother CAD (coronary artery disease) Father CAD (coronary artery disease) Surgical History History of external ear surgery History of coronary artery bypass surgery (~11/25/20) Social History Smoking Status: Former smoker Tobacco: How many years used: 20 alcohol intake: never substance use type: does not use caffeine: Yes Type: coffee Number of servings: 4 additional social history: pt denies vaping, pt denies marijuana, pt denies smoking pt uses ibuprofen as needed pt uses aspirin daily Vital Signs Vital Signs Vital Signs: 04/25/25 06:53 04/25/25 06:53 Temperature 97.8 F Temperature Source Temporal Pulse Rate 97 Respiratory Rate 16 Respiratory Pattern Normal Blood Pressure 153/71 H Blood Pressure Mean 98 Blood Pressure Source Monitor Blood Pressure Position Semi-Fowlers Blood Pressure Location Right Arm Pulse Ox 96 Oxygen Delivery Method Room Air Weight Weight: 174 lb 2.643 oz Body Mass Index (BMI) 28.0 Physical Exam Narrative Right chest mass Right chest scar (marked with 2 cm margins for excision) Assessment & Plan Assessment/Plan (1) Malignant neoplasm of skin of chest: (2) Malignant melanoma: QUALIFIERS: Melanoma location: unspecified site Qualified Code(s): C43.9 - Malignant melanoma of skin, unspecified PLAN: Plan I talked to the patient extensively about the risks of surgery, including bleeding, infection, damage to surrounding structures, poor scaring, surgical site dehiscence and wound formation, need for wound care, need for repeat operations, failure to obtain the desired result, DVT/PE, and the risks of anesthesia including , including stroke (from low blood pressure/ischemia or clot). The benefits and alternatives of this surgery were also discussed. All of their questions were answered, and they agreed to proceed with surgery. I talked to his oncologist. Our plan is for control today of the primary melanoma with marginal control to attempt to clear margins (wide local excision). The team will radiate the chest metastasis (bleeding large mass). Patient and his family in agreement (I discussed thoroughly )
--- NOTE | 2025-04-25 08:45 | LES_PTH ---
PATIENT: JENNIFER CUNNINGHAM LOC: [facility] [place] U#:[id number] AGE/SX: 84/M ROOM: RE04/25/[address]: Dr. Ernesto Mendes MD : 1940 BED: DIS: 04/25/2025 SPEC #: [id number] RECD: 04/25/25 11:46 STATUS: PHILIP REQ #: [id number] KATHERINE: 04/25/25 08:[address]: Ernesto Mendes DEPT: SURGICAL PATHOLOGY RECD BY: Gonzales Persaud ENTERED: 04/25/25 14:53 SP TYPE: Lesion OTHR DR: Dr. Douglas Ball MD Tissues: A - Skin of chest Procedures: Immunohistochemical Stains Surgery Specimen Level IV IHC Stain ADDITIONAL HEADER OPERATION: Excision for margins right chest melanoma PRE-OP DIAGNOSIS: Malignant neoplasm of skin of chest, malignant melanoma TISSUE SUBMITTED: A- Right chest melanoma scar 1 tag at 12o'clock, 3 tags at 3o'clock MICROSCOPIC DIAGNOSIS A. Chest, right, melanoma scar, excision: - Negative for residual invasive malignant melanoma. - Focal atypical compound melanocytic proliferation, incidental, surgical margins free. - Scar and associated reactive changes consistent with a previous surgical procedure. MICROSCOPIC DESCRIPTION Slides are reviewed. GROSS DESCRIPTION Received in formalin labeled with the patient's name and date of . Designated as right chest melanoma scar 1 tag at 12 o'clock 3 tags at 3 o'clock is a 9.5 x 4.6 cm peña, ovoid skin ellipse excised to a depth ranging 0.4-1.4 cm and with orientation as follows:Single suture: designated as 12:00.Triple suture: designated as 3:00. There is a 5.8 cm in length by <0.1 cm pale linear scar with surrounding, raised epidermis measuring up to 0.9 cm in diameter. The scar is located the following distances from the margins:12:00: 2.4 cm 3:00: 2.4 cm 6:00: 1.9 cm9:00: 1.4 cmDeep: <0.1 cm (discoloration underlying scar). Ink giraldo: 12:00 periphery: Blue6:00 periphery: Green3:00 half (deep): Orange9:00 half (deep): Yellow The specimen is serially sectioned from 9:00 to 3:00 into 9 slices revealing a peña-yellow lobulated cut surfaces with dense fibrosis and peña-brown discoloration underlying the scar; there is alsofocal discoloration located approximately 0.7 cm from the 9:00 end. Vp Revenue [employer] sections are submitted, sequentially from 9:00 to 3:00 as follows: A1-A2: Slice #1, 9:00 edge, perpendicular, including discoloration in cassette A2.A3: Slice #3, 12:00 half of the sliceA4: Slice #5, centralA5: Slice #7, centralA6: Slice #8, centralA7: Slice #8, 6:00 half of the sliceA8: Slice #10, centralA9: Slice #11, [id number]: Slice #14, 3:00 edge, perpendicular MI 04/28/2025 CPT:92547,[id number]
[2025-04-25] MEDS: Bupiv/Epi 0.25% 30 ML Vial (09:11)
[2025-04-25] MEDS: Lidocaine 1% /Epi 1:100 (20ml) 20 ML Vial (09:11)
--- NOTE | 2025-04-25 10:03 | PCM.POST.ANE ---
Anesthesia: Postop Eval I Current Vital Signs Temperature: 97.2 F Pulse Rate: 90 Blood Pressure: 123/66 Respiratory Rate: 20 Pulse Ox: 93 Oxygen Delivery Method: Room Air Assessment Airway patent: Yes Spontaneous unlabored respirations: Yes Mental status: Awake and Calm nausea: No Vomiting: No Anesthesia Complication: No Fluid Hydration Crystalloid volume administer (ml): 1,000 Total IV fluid infused: 1,000 Progress Note Anesthesia document: Postop Eval 1 completed: Yes
--- NOTE | 2025-04-25 11:46 | POSTOPAN2_ITS ---
Anesthesia Postop Eval I Sum Postop Eval Completion status Anesthesia document: Postop Eval 1 completed: Yes Anesthesia Postop Eval I Summary Anesthesia Postop Eval I Summary: Anesthesia Postop Eval I: Assessment Summary Airway patent Yes 04/25/25 10:04 [email or web address] Spontaneous unlabored Yes 04/25/25 10:04 [email or web address] respirations Mental status Awake,Calm 04/25/25 10:04 [email or web address] nausea No 04/25/25 10:04 [email or web address] Vomiting No 04/25/25 10:04 [email or web address] Anesthesia Postop Eval I: Fluid Summary Crystalloid volume administer 1,000 04/25/25 10:04 [email or web address] (ml) Colloids volume administered ( ml) Blood Product volume administered (ml) Total IV fluid infused 1,000 04/25/25 10:04 [email or web address] [email or web address] Anesthesia Postop Eval I: Summary Notes Anesthesia Complication No 04/25/25 10:04 [email or web address] Anesthesia Complication Comment: Post-operative progress note Anesthesia: Postop Eval II Evaluation Mental status: Awake Pain Level: 0 nausea: No Vomiting: No
--- NOTE | 2025-04-25 11:46 | PCM.POSTANE2 ---
Anesthesia Postop Eval I Sum Postop Eval Completion status Anesthesia document: Postop Eval 1 completed: Yes Anesthesia Postop Eval I Summary Anesthesia Postop Eval I Summary: Anesthesia Postop Eval I: Assessment Summary Airway patent Yes 04/25/25 10:04 [email or web address] Spontaneous unlabored Yes 04/25/25 10:04 CUSTOMER [email or web address] [email or web address] respirations Mental status Awake,Calm 04/25/25 10:04 CUSTOMER [email or web address] [email or web address] nausea No 04/25/25 10:04 CUSTOMER [email or web address] Vomiting No 04/25/25 10:04 CUSTOMER [email or web address] Anesthesia Postop Eval I: Fluid Summary Crystalloid volume administer 1,000 04/25/25 10:04 CUSTOMER [email or web address] (ml) Colloids volume administered ( ml) Blood Product volume administered (ml) Total IV fluid infused 1,000 04/25/25 10:04 CUSTOMER [email or web address] Anesthesia Postop Eval I: Summary Notes Anesthesia Complication No 04/25/25 10:04 CUSTOMER [email or web address] [email or web address] Anesthesia Complication Comment: Post-operative progress note Anesthesia: Postop Eval II Evaluation Mental status: Awake Pain Level: 0 nausea: No Vomiting: No
--- NOTE | 2025-04-25 17:20 | PCM.OPRPT ---
Operative Report (Standard) Operative Information Date of Procedure: 04/25/25 Pre-Operative Diagnosis: 1) Right lower chest melanoma Post-Operative Diagnosis: Same Surgery/Procedure Performed: 1) Excision for complete margins of the right lower chest melanoma (positive margins on initial excision of the 5 mm Breslow depth melanoma), 4 x 12 cm (2 cm margins circumferentially around the scar) (CPT: 41361) 2) Complex closure right lower chest wound, 12 cm (CPT: 00471, 90583) environmental health technician: Yes Manufacturing Scheduler: Jaquan Choudhary Tasks completed by interior design assistant: Opening & closing and Retracting Type of Anesthesia: Local MAC (40 cc of a 50-50 mixture of 1% lidocaine with 1-200,000 epinephrine and quarter percent Marcaine with 1-200,000 epinephrine) RN Documented Start/Stop Times: Operation Date: 04/25/25 08:45 Case Time Into Pre-Op 04/25/25 06:37 Out of Pre-Op 04/25/25 08:41 Anesthesia Start 04/25/25 08:44 Into Room 04/25/25 08:44 Procedure Start 04/25/25 09:11 Procedure End 04/25/25 09:52 Anesthesia End 04/25/25 09:54 Out of Room 04/25/25 09:54 Into Recovery 04/25/25 09:56 Out of Recovery 04/25/25 10:22 Into Phase II Recovery 04/25/25 10:23 Out of Phase II 04/25/25 11:15 Procedure Start Time: 09:11 Procedure Stop Time: 09:52 Select all DRAINS/GRAFTS/IMPLANTS that apply: None Estimated Blood Loss: 25 cc Specimen collected: Yes Description of specimen(s) removed: Melanoma scar with positive margins on pathology, marked 1 stitch at 12:00 and 3 stitches at 3:00 Description of surgery: Indications: Patient is an 84-year-old with metastatic melanoma. There is a large metastases in the right upper chest which is being managed by anticipated radiation. I was asked by the surgical oncologist and the cancer team to completely excise the primary lesion (excisional biopsy performed in clinic demonstrating a Breslow depth melanoma 5 mm with positive superior margins) on the right lower chest, which would definitively manage this lesion with wide local excision. There was no clinical residual melanoma, just scar. I talked the patient about the risk benefits and alternatives of this procedure and he and his family elected to proceed. Procedure details: Patient was correctly identified in preoperative holding and the area was marked for excision with 2 cm margins around the scar. He was taken back to the operating room where he was sedated and administered local anesthesia and prepped and draped in sterile fashion. A timeout was performed. A 10 blade scalpel was used to make an elliptical excision with 2 cm margins around the right lower chest scar for total excision of malignant lesion of 4 x 12 cm. Bovie electrocautery was used to dissect full-thickness down to the fascia and remove the 4 x 12 cm specimen and send to pathology labeled 1 stitch 12:00 and 3 stitches 3:00. Hemostasis was obtained with Bovie electrocautery and the wound was irrigated with copious months normal saline. There was far too much tension for primary closure. Therefore undermining was taken along the fascial plane of the chest and abdomen 8 cm inferiorly and 6 cm superiorly to advance the flaps to the midline (14 cm of undermining indicating complex closure). Progressive tension sutures were then applied with 3-0 Vicryl suture to both kill space and also advance the flap so that it would not have too much tension for the closure. Himanshu hemostatic agent was then applied. At this point the superior and inferior flaps were together and then closed with 2-0 PDS deep Elizabeth well suture and deep dermal 3-0 Monocryl suture followed by running subcuticular 3-0 Monocryl suture. Prineo tape was then applied on top. Patient tolerated the procedure well and was awakened and taken to the PACU in stable condition. Postoperative plan: Follow-up in 1 week for wound check and to discuss pathology Surgical Findings: Too much tension for primary closure requiring wide undermining Name: ?Insert Iva Melanoma ? Synoptic Portion: Element Response Options Operation performed with curative intent. Yes for the primary but patient has metastatic disease Original Breslow thickness of the lesion [Melanoma ; 5 mm (to the tenth of a millimeter).] Clinical margin width 2 cm Depth of excision [Full-thickness skin/subcutaneous tissue down to fascia (melanoma) Complications Complications: No Admit VTE Documentation VTE Mechan Device Prophylaxis: SCD's
== END 2025-04-25 11:16 | disposition home or self-care (01) ==
LOC: SDC 06:32 → AC 06:34
PROVIDERS: PCP Family Medicine Geriatric Medicine; Referring Provider Surgery Plastic and Reconstructive Surgery; Visit Provider Surgery Plastic and Reconstructive Surgery
PROC: (CPT 11606; principal; 2025-04-25 08:35)
DX: C43.59 Malignant melanoma of other part of trunk (principal); C79.89 Secondary malignant neoplasm of other specified sites; J44.9 Chronic obstructive pulmonary disease, unspecified; I10 Essential (primary) hypertension; I25.10 Atherosclerotic heart disease of native coronary artery without angina pectoris; Z79.899 Other long term (current) drug therapy; Z87.891 Personal history of nicotine dependence
CPT/HCPCS: 11606; 13101; 13102; 00400; 88305; 88341; 88342

== ENCOUNTER → 2025-05-03 | Outpatient (CLI) | payer MEDICARE, OTHER, SELFPAY ==
[2020-12-23 09:20] VITALS: BMI 29.0
--- OUTSIDE RECORDS SUMMARY | 2025-05-03 08:29 | XMS RPT_ITS | CCD ---
Author Organization [facility] CliniSys[facility] Care Team Providers Care Shop Fitter Name Role Phone Dr. Douglas Ball Chi Primary Care Provider Dr. Douglas Ball Chi Referring Provider [facility] SCREENING TECH, SCREENING TECH-Rosmery Castro Attending Provider Quinn CULLEN, Dr. Douglas Vazquez Primary Care Provider [phone] Dr. Kb Yañez MD Emergency Provider Galina CULLEN, Dr. Zoran Sprague Attending Provider Otilio CULLEN, Dr. Quiles Attending Provider Quinn CULLEN, Dr. Douglas Vazquez Attending Provider [phone] Quinn CULLEN, Dr. Douglas Vazquez Referring Provider Dr. Ernesto Mendes MD Attending Provider Vaughn CULLEN, Dr. Orozco Referring Provider Dr. Patricia Beckham MD Attending Provider Bhavani CULLEN, Dr. Gomez Referring Provider Dr. Ernesto Mendes MD Other Provider Dr. Sam Méndez DO Attending Provider Quinn, Douglas Chi Attending Unavailable Quinn, Douglas Chi Primary Care Unavailable Quinn, Douglas Chi Attending Unavailable Quinn, Douglas Chi Primary Care Unavailable Quinn, Douglas Chi Referring Unavailable SisErnesto hutchins Attending Unavailable Quinn, Douglas Chi Primary Care Unavailable SisErnesto hutchins Referring Unavailable Quinn, Douglas Chi Primary Care Unavailable Quinn, Douglas Chi Referring Unavailable Patricia Beckham Attending Unavailable Quinn, Douglas Chi Referring Unavailable SiskaErnesto Attending Unavailable Quinn, Douglas Chi Primary Care Unavailable SisErnesto hutchins Attending Unavailable Quinn, Douglas Chi Primary Care Unavailable Siska, Ernesto Referring Unavailable Quinn, Douglas Chi Primary Care Unavailable Kb Yañez Attending Unavailable SiskaErnesto Attending Unavailable Quinn, Douglas Chi Primary Care Unavailable Siska, Ernesto Referring Unavailable Quinn, Douglas Chi Referring Unavailable Quinn, Douglas Chi Primary Care Unavailable IsckarusAndrésour Attending Unavailable Quinn, Douglas Chi Referring Unavailable SiskaErnesto Attending Unavailable Quinn, Douglas Chi Primary Care Unavailable Quinn, Douglas Chi Attending Unavailable Quinn, Douglas Chi Primary Care Unavailable Isckarus, Andrésour Attending Unavailable Quinn, Douglas Chi Primary Care Unavailable Isckarus, Mansour Referring Unavailable Quinn, Douglas Chi Primary Care Unavailable WanekZoran Attending Unavailable Dev, Sam Attending Unavailable Quinn, Douglas Chi Primary Care Unavailable Quinn, Douglas Chi Referring Unavailable Quinn, Douglas Chi Primary Care Unavailable Quinn, Douglas Chi Referring Unavailable Isckarus, Andrésour Attending Unavailable Quinn, Douglas Chi Primary Care Unavailable Quinn, Douglas Chi Referring Unavailable Shay Negrete Attending Unavailable SiskaErnesto Attending Unavailable Quinn, Douglas Chi Primary Care Unavailable Quinn, Douglas Chi Referring Unavailable Quinn, Douglas Chi Primary Care Unavailable WanekZoran Attending Unavailable Isckarus, Mansour Referring Unavailable DevSam Attending Unavailable Quinn, Douglas Chi Primary Care Unavailable Siska, Ernesto Referring Unavailable Siska, Ernesto Attending Unavailable Siska Ernesto Consulting Unavailable Quinn, Douglas Chi Primary Care Unavailable Quinn, Douglas Chi Primary Care Unavailable WanZoran tobin Attending Unavailable SiskaErnesto Attending Unavailable Quinn, Douglas Chi Primary Care Unavailable Quinn, Douglas Chi Referring Unavailable Allergies Allergy Classification Reported Allergen(s) Allergy Type Date of Onset Reaction(s) Facility (17 sources) Amoxicillin Drug Allergy 1 [facility] (17 sources) Clavulanate Drug Allergy 1 [facility] (1 source) OPIATES Propensity to adverse reactions 1 Low blood pressure [facility] Work Phone: (16 sources) Opioids - Morphine Analogues Propensity to adverse reactions 2 Low blood pressure [facility] (4 sources) oxyCODONE Drug Allergy 5 OTHER [facility] Comment on above: ANXIETY - NEVER SLEP T (1 source) Amoxicillin Drug Allergy 5 [facility]ository (1 source) Clavulanate Drug Allergy 5 [facility] (1 source) oxyCODONE Drug Allergy 5 [facility] (1 source) Opioids - Morphine Analogues Drug allergy (disorder) 5 [facility] Repository Medications Current Medications Medication Drug Class(es) Dates Sig (Normalized) Sig (Original) albuterol 0.83 mg/ml inhalation solution (17 sources) beta2-Adrenergic Agonist Start: 09-23-2021 take 2.5 mg by inhalation every six hours as needed for wheezing Albuterol Sulfate 2.5 mg /3 mL (0.083 %) solution for nebulization Active 2.5 mg INHALATION EVERY 6 HOURS as needed for shortness of breath or wheezing September 23, 2021 1:00am amLODIPine 10 mg oral tablet (20 sources) Dihydropyridine Calcium Channel Michelle Start: 12-21-2023 take 5 mg by mouth once daily Amlodipine 10 mg tablet Active 5 mg PO DAILY December 21, 2023 12:18pm BP Start: 12-17-2020 End: 12-21-2023 take 1 tablet by mouth once daily Amlodipine 10 mg tablet Discontinued 10 mg PO DAILY December 17, 2020 1:00am December 21, 2023 12:18pm BP Start: 11-05-2020 End: 11-30-2020 take 1 tablet by mouth once daily Amlodipine 10 mg tablet Discontinued 10 mg PO DAILY 90 0 November 05, 2020 1:00am November 30, 2020 5:35pm Start: 09-14-2020 End: 09-19-2020 take 1 tablet by mouth once daily Amlodipine 10 MG tablet Discontinued 10 mg PO DAILY September 14, 2020 1:00am September 19, 2020 3:00pm aspirin 81 mg delayed release oral tablet (20 sources) Platelet Aggregation Inhibitor, Nonsteroidal Anti-inflammatory Drug Start: 11-03-2020 End: 09-23-2021 take 1 tablet by mouth once daily Aspirin 81 mg tablet,delayed release (DR/EC) Active 81 mg PO DAILY 1 September 23, 2021 1:00am cetirizine hydrochloride 10 mg oral tablet (4 sources) Histamine-1 Receptor Antagonist Start: 04-25-2025 take 1 tablet by mouth once daily as needed Cetirizine (24hour Allergy) 10 mg tablet Active 10 mg PO DAILY as needed for allergy symptoms April 25, 2025 12:00am furosemide 40 mg oral tablet (20 sources) Loop Diuretic Start: 04-04-2022 take 1 tablet by mouth once daily Furosemide 40 mg tablet Active 40 mg PO DAILY April 04, 2022 12:00am Start: 03-25-2021 End: 04-04-2022 take 1 tablet by mouth once daily as needed Furosemide 20 mg tablet Discontinued 20 mg PO DAILY as needed March 25, 2021 12:00am April 04, 2022 9:10am Start: 11-30-2020 End: 12-17-2020 take 1 tablet by mouth once daily Furosemide 20 mg tablet Discontinued 20 mg PO DAILY November 30, 2020 1:00am December 17, 2020 3:14pm Start: 09-19-2020 End: 11-30-2020 take 1 tablet by mouth once daily Furosemide 40 MG tablet Discontinued 40 mg PO DAILY 30 0 September 19, 2020 1:00am November 30, 2020 5:32pm On Hold: Order Changed start on 09/20/20 levothyroxine sodium 0.125 mg oral tablet (20 sources) l-Thyroxine Start: 12-21-2023 take 1 tablet by mouth once daily Levothyroxine 125 mcg tablet Active 125 ug PO DAILY December 21, 2023 1:00am Ischemic cardiomyopathy Ischemic cardiomyopathy Start: 09-23-2021 End: 12-21-2023 take 1 tablet by mouth once daily Levothyroxine 112 mcg tablet Discontinued 112 ug PO DAILY September 23, 2021 1:00am December 21, 2023 11:43am Start: 09-14-2020 End: 09-23-2021 take 1 tablet by mouth once daily Levothyroxine 100 MCG tablet Discontinued 100 ug PO DAILY September 14, 2020 1:00am September 23, 2021 11:34am THYROID magnesium oxide 400 mg oral tablet (20 sources) Start: 03-14-2025 take 1 tablet by mouth twice daily Magnesium Oxide 400 mg (241.3 mg magnesium) tablet Active 400 mg PO TWICE A DAY March 14, 2025 12:00am Start: 09-23-2021 End: 03-14-2025 take 1 capsule by mouth twice daily Magnesium Oxide 400 mg magnesium capsule Discontinued 400 mg PO TWICE A DAY September 23, 2021 1:00am March 14, 2025 11:00am Start: 11-30-2020 End: 12-17-2020 take 1 tablet by mouth twice daily Magnesium Oxide 400 mg (241.3 mg magnesium) tablet Discontinued 400 mg PO TWICE A DAY November 30, 2020 1:00am December 17, 2020 3:13pm 24 hr metoprolol succinate 100 mg extended release oral tablet (20 sources) beta-Adrenergic Michelle Start: 09-28-2022 take 2 tablets by mouth twice daily Metoprolol Succinate 100 mg tablet extended release 24 hr Active 50 mg PO TWICE A DAY September 28, 2022 10:48am Start: 09-28-2022 take 50 mg by mouth twice chase y Metoprolol Succinate Active 50 MG PO TWICE A DAY September 28, 2022 9:48am Start: 09-23-2021 End: 09-28-2022 take 1 tablet by mouth once daily Metoprolol Succinate 100 mg tablet extended release 24 hr Discontinued 100 mg PO DAILY September 23, 2021 1:00am September 28, 2022 10:48am Start: 11-30-2020 End: 09-23-2021 Metoprolol Tartrate 25 MG ta blet Discontinued 12.5 mg PO TWICE A DAY December 28, 2020 12:54pm September 23, 2021 11:34am HEART Start: 11-30-2020 End: 09-23-2021 take 12.5 mg by mouth twice daily Metoprolol Tartrate Discontinued 12.5 MG PO TWICE A DAY December 28, 2020 11:54am September 23, 2021 10:34am Start: 09-19-2020 End: 11-30-2020 take 1 tablet by mouth twice daily Metoprolol Tartrate 100 mg tablet Discontinued 100 mg PO TWICE A DAY 180 3 November 05, 2020 4:29pm November 30, 2020 5:34pm Start: 09-14-2020 End: 11-03-2020 take 1 tablet by mouth once daily Metoprolol Tartrate 100 MG tablet Discontinued 100 mg PO DAILY September 14, 2020 1:00am November 03, 2020 12:14pm oxyCODONE hydrochloride 5 mg oral tablet (20 sources) Opioid Agonist Start: 04-25-2025 take 1 tablet by mouth twice daily as needed for pain Oxycodone 5 mg tablet Active 5 mg PO TWICE A DAY as needed for pain 10 5 0 April 25, 2025 Malignant melanoma Malignant melanoma of skin, unspecified Start: 11-30-2020 End: 12-17-2020 take 1 tablet by mouth every eight hours as needed Oxycodone 5 mg tablet Discontinued 5 mg PO Q8H as needed 0 November 30, 2020 1:00am December 17, 2020 3:13pm potassium chloride 10 meq extended release oral capsule (20 sources) Start: 03-14-2025 take 1 capsule by mouth once daily Potassium Chloride 10 mEq capsule, extended release Active 10 meq PO DAILY March 14, 2025 12:00am Start: 03-25-2021 End: 03-14-2025 take 1 tablet by mouth once daily Potassium Chloride 10 mEq tablet extended release Discontinued 10 meq PO DAILY March 25, 2021 12:00am March 14, 2025 11:01am Start: 09-19-2020 End: 12-17-2020 take 2 capsules by mouth once daily Potassium Chloride 10 MEQ capsule, extended release Discontinued 20 meq PO DAILY 60 0 September 19, 2020 1:00am December 17, 2020 3:13pm Start: 09-19-2020 End: 12-17-2020 take 20 mEq by mouth once daily Potassium Chloride Dis continued 20 MEQ PO DAILY 60 September 19, 2020 12:00am December 17, 2020 2:13pm tamsulosin hydrochloride 0.4 mg oral capsule (17 sources) alpha-Adrenergic Michelle Start: 11-30-2020 take 1 capsule by mouth once daily Tamsulosin 0.4 mg capsule Active 0.4 mg PO DAILY November 30, 2020 1:00am PROSTATE Completed/Discontinued Medications Medication Drug Class(es) Dates Sig (Normalized) Sig (Original) acetaminophen 325 mg oral tablet (17 sources) Start: 11-30-2020 End: 04-04-2022 take 1-10 tablets by mouth every four hours as needed for pain Acetaminophen (Tylenol) 325 mg tablet Discontinued 325 - 650 mg PO Q4H as needed for Pain 1-10 Or Fever November 30, 2020 1:00am April 04, 2022 9:12am acetaminophen 500 mg / diphenhydrAMINE hydrochloride 25 mg oral tablet (17 sources) Histamine-1 Receptor Antagonist Start: 12-28-2020 End: 01-04-2021 Diphenhydramine-Efrem taminophen 1 EACH tablet Discontinued 1 {tbl} PO AT BEDTIME December 28, 2020 12:00am January 04, 2021 10:33am SLEEP Start: 12-28-2020 End: 01-04-2021 take 1 tablet by mouth at bedtime Diphenhydramine-Acetaminophen Discontinu ed 1 TABLET PO AT BEDTIME December 27, 2020 11:00pm January 04, 2021 9:33am amiodarone hydrochloride 200 mg oral tablet (17 sources) Antiarrhythmic Start: 11-30-2020 End: 12-17-2020 take 1 tablet by mouth once daily Amiodarone 200 mg tablet Discontinued 200 mg PO DAILY November 30, 2020 1:00am December 17, 2020 3:14pm x7 days amoxicillin 875 mg / clavulanate 125 mg oral tablet (17 sources) Penicillin-class Antibacterial Start: 12-31-2020 End: 03-25-2021 take 1 tablet by mouth every twelve hours Amoxicillin-Pot Clavulanate 875 MG tablet Discontinued 875 mg PO Q12H 14 0 December 31, 2020 12:00am March 25, 2021 9:48am Aspirin, Baby (17 sources) Start: 09-15-2020 End: 11-03-2020 take 81 mg by mouth once daily Aspirin, Baby Discontinued 81 MG PO DAILY September 15, 2020 2:42am November 03, 2020 12:14pm Start: 09-15-2020 End: 11-03-2020 take 81 mg by mouth once daily Aspirin, Baby Discontin ued 81 mg PO DAILY September 15, 2020 1:00am November 03, 2020 12:14pm Heart Start: 09-15-2020 End: 11-03-2020 take 81 mg by mouth once daily Aspirin, Baby Discontin ued 81 mg PO DAILY September 15, 2020 1:00am November 03, 2020 12:14pm Start: 09-15-2020 End: 11-03-2020 take 81 mg by mouth once daily Aspirin, Baby Discontin ued 81 MG PO DAILY September 15, 2020 12:00am November 03, 2020 11:14am Start: 09-15-2020 End: 11-03-2020 take 81 mg by mouth once daily Aspirin, Baby Discontin ued 81 MG PO DAILY September 15, 2020 1:00am November 03, 2020 12:14pm atorvastatin 40 mg oral tablet (20 sources) HMG-CoA Reductase Inhibitor Start: 09-19-2020 End: 05-22-2024 take 1 tablet by mouth at bedtime Atorvastatin 40 mg tablet Discontinued 40 mg PO AT BEDTIME 90 3 May 11, 2023 3:27pm May 22, 2024 9:17am CHOLESTEROL clopidogrel 75 mg oral tablet (20 sources) P2Y12 Platelet Inhibitor Start: 09-19-2020 End: 12-17-2020 take 1 tablet by mouth once daily Clopidogrel 75 mg tablet Discontinued 75 mg PO DAILY 30 0 November 05, 2020 4:29pm December 17, 2020 3:14pm start on 09/20/20 dexamethasone 2 mg oral tablet (17 sources) Corticosteroid Start: 09-19-2020 End: 11-05-2020 take 3 tablets by mouth once daily Dexamethasone 2 MG tablet Discontinued 6 mg PO DAILY September 19, 2020 1:00am November 05, 2020 4:11pm start on 09/20/20 Start: 09-19-2020 End: 11-05-2020 take 6 mg by mouth once daily Dexamethasone Discontinu ed 6 MG PO DAILY September 19, 2020 12:00am November 05, 2020 3:11pm start on 09/20/20 diphenhydrAMINE hydrochloride 25 mg oral capsule (17 sources) Histamine-1 Receptor Antagonist Start: 12-28-2020 End: 12-21-2023 take 2 capsules by mouth once daily as needed for congestion Diphenhydramine Hcl 25 MG capsule Discontinued 50 mg PO DAILY NEEDED as needed for Sinus Congestion December 28, 2020 12:00am December 21, 2023 11:49am Start: 12-28-2020 take 50 mg by mouth once daily as needed Diphenhydramine Hcl Active 50 MG PO DAILY NEEDED December 27, 2020 11:00pm Aujtxclfdnc-Xdknkhdql-Jobzyk er (16 sources) Anticholinergic, Corticosteroid, beta2-Adrenergic Agonist Start: 04-04-2022 End: 07-11-2024 Rqgvolexyqy-Hsfvkawyt-Hlgwsp er (Trelegy Ellipta) 100-62.5-25 mcg blister with device Discontinued 1 NMA INHALATION DAILY April 04, 2022 12:00am July 11, 2024 10:19am Start: 04-04-2022 Fluticasone-Um eclidin-Vilanter (Trelegy Ellipta) 100-62.5-25 mcg blister with device Active 1 INH INHALATION DAILY April 03, 2022 11:00pm Start: 04-04-2022 Fluticasone-Um eclidin-Vilanter (Trelegy Ellipta) 100-62.5-25 mcg blister with device Active 1 INH INHALATION DAILY April 04, 2022 12:00am hydroCHLOROthiazide 12.5 mg / lisinopril 10 mg oral tablet (20 sources) Thiazide Diuretic, Angiotensin Converting Enzyme Inhibitor Start: 03-25-2021 End: 09-23-2021 Lisinopril-Hydrochlorothiazi de 10-12.5 mg tablet Discontinued 1 {tbl} PO DAILY March 25, 2021 12:00am September 23, 2021 11:36am Start: 03-25-2021 End: 09-23-2021 take 1 tablet by mouth once daily Lisinopril-Hydrochlorothiazide Discontin ued 1 TABLET PO DAILY March 24, 2021 11:00pm September 23, 2021 10:36am Start: 11-05-2020 End: 11-30-2020 Lisinopril-Hydrochlorothiazi de 10-12.5 mg tablet Discontinued 1 {tbl} PO DAILY 1 November 05, 2020 1:00am November 30, 2020 5:35pm Start: 11-05-2020 End: 11-30-2020 take 1 tablet by mouth once daily Lisinopril-Hydrochlorothiazide Discontin ued 1 TABLET PO DAILY November 05, 2020 12:00am November 30, 2020 4:35pm Start: 09-14-2020 End: 09-19-2020 Lisinopril-Hydrochlorothiazi de 1 EACH tablet Discontinued 1 NMA PO DAILY September 14, 2020 1:00am September 19, 2020 3:00pm Start: 09-14-2020 End: 09-19-2020 Lisinopril-Hydrochlorothiazi de Discontinued 1 EACH PO DAILY September 14, 2020 12:00am September 19, 2020 2:00pm ibuprofen 200 mg oral tablet (17 sources) Nonsteroidal Anti-inflammatory Drug Start: 12-28-2020 End: 01-04-2021 take 1-10 tablets by mouth once daily as needed for pain Ibuprofen 200 MG tablet Discontinued 400 mg PO DAILY as needed for Pain 1-10 Or Fever December 28, 2020 12:00am January 04, 2021 10:34am Start: 12-28-2020 End: 01-04-2021 take 400 mg by mouth once daily Ibuprofen Discontinued 400 MG PO DAILY December 27, 2020 11:00pm January 04, 2021 9:34am lisinopril 10 mg oral tablet (17 sources) Angiotensin Converting Enzyme Inhibitor Start: 09-19-2020 End: 11-30-2020 take 1 tablet by mouth once daily Lisinopril 10 MG tablet Discontinued 10 mg PO DAILY 30 0 September 19, 2020 1:00am November 30, 2020 5:35pm On Hold: Order Changed pantoprazole 40 mg delayed release oral tablet (20 sources) Proton Pump Inhibitor Start: 12-17-2020 End: 03-25-2021 take 1 tablet by mouth once daily Pantoprazole 40 MG tablet,delayed release (DR/EC) Discontinued 40 mg PO DAILY December 28, 2020 12:54pm March 25, 2021 9:50am GERD Problems Active Problems Problem Classification Problem Date Documented Da te Episodic/Chronic Acute myocardial infarction (17 sources) Myocardial infarction; Translations: [Non-ST elevation (NSTEMI) myocardial infarction] 01-04-2021 Chronic Chronic obstructive pulmonary disease and bronchiectasis (16 sources) Chronic obstructive lung disease; Translations: [Chronic obstructive pulmonary disease, unspecified] 04-04-2022 Chronic Congestive heart failure; nonhypertensive (17 sources) Congestive heart failure; Translations: [Heart failure, unspecified] 01-04-2021 Chronic Coronary atherosclerosis and other heart disease (20 sources) Coronary atherosclerosis; Translations: [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] 01-04-2021 Chronic Disorders of lipid metabolism (18 sources) Hyperlipidemia; Translations: [Hyperlipidemia, unspecified] 03-25-2021 Chronic Essential hypertension (20 sources) Essential hypertension; Translations: [Essential (primary) hypertension] Onset: 09-18-2024 09-21-2021 Chronic Heart valve disorders (17 sources) Non-rheumatic mitral regurgitation ; Translations: [Nonrheumatic mitral (valve) insufficiency] 01-04-2021 Chronic Melanomas of skin (20 sources) Malignant melanoma; Translations: [Malignant melanoma of skin, unspecified] Onset: 04-16-2025 Chronic Comment on above: Right upper abdomina l quadrant Right Lower Anterior Chest Neoplasms of unspecified nature or uncertain behavior (20 sources) Neoplasm of uncertain behavior of skin; Translations: [Neoplasm of uncertain behavior of skin] Onset: 04-16-2025 04-09-2025 Episodic Comment on above: Left upper abdomen Nutritional deficiencies (1 source) Vitamin D deficiency, unspecified; Translations: [Vitamin D deficiency, unspecified] Onset: 09-18-2024 Chronic Open wounds of extremities (17 sources) Open wound of left thigh; Translations: [Unspecified open wound, left thigh, initial encounter] 09-21-2021 Episodic Other non-epithelial cancer of skin (20 sources) Malignant neoplasm of skin of trunk ; Translations: [Unspecified malignant neoplasm of skin of other part of trunk] Onset: 04-29-2025 03-31-2025 Episodic Comment on above: Metastatic melanoma Other skin disorders (14 sources) Mass of chest wall; Translations: [Localized swelling, mass and lump, trunk] 03-14-2025 Episodic Other skin disorders (2 sources) Mass of thoracic structure; Translations: [Localized swelling, mass and lump, trunk] 03-31-2025 Episodic Other skin disorders (1 source) Other specified disorders of the skin and subcutaneous tissue; Translations: [Other specified disorders of the skin and subcutaneous tissue] Onset: 04-14-2025 Episodic Other skin disorders (2 sources) Localized swelling, mass and lump, trunk; Translations: [Localized swelling, mass and lump, trunk] Onset: 04-01-2025 Episodic Pulmonary heart disease (17 sources) Pulmonary hypertension; Translations: [Pulmonary hypertension, unspecified] 01-04-2021 Chronic Septicemia (except in labor) (17 sources) Sepsis; Translations: [Sepsis, unspecified organism] 09-21-2021 Episodic Skin and subcutaneous tissue infections (17 sources) Cellulitis and abscess of thigh; Translations: [Abscess or cellulitis of thigh] 09-21-2021 Episodic Thyroid disorders (1 source) Hypothyroidism, unspecified; Translations: [Hypothyroidism, unspecified] Onset: 09-18-2024 Chronic Unclassified (20 sources) Malignant neoplasm of skin of chest; Translations: [C44.509 - Unspecified malignant neoplasm of skin of other part of trunk] Unclassified (6 sources) C44.509 - Unspecified malignant neoplasm of skin of other part of trunk,C43.9 - Malignant melanoma of skin, unspecified,D48.5 - Neoplasm of uncertain behavior of skin Past or Other Problems Problem Classification Problem Date Documented Date Episodic/Chronic Coronary atherosclerosis and other heart disease (1 source) Presence of aortocoronary bypass graft; Translations: [Aortocoronary bypass status] Onset: 1 05-22-2023 Episodic Residual codes; unclassified (17 sources) History of cardiac catheterization; Translations: [Other specified postprocedural states] Onset: 1 12-28-2020 Episodic Comment on above: LEFT MAIN: Mild calc ification, Proximal and Distal: 50 % Stenosis; LEFT ANTERIOR DESCENDING ARTERY: PROX LAD: Mild calcification, 99 % Stenosis, Diffuse: Eccentric: 25 % Stenosis, MID LAD: Mild luminal irregularities; CIRCUMFLEX ARTERY: OSTIAL CIRC: 50 % Stenosis; RAMUS: Mild luminal irregularities; RIGHT CORONARY ARTERY: Mild calcification, PROX RCA: Eccentric: Hazy: 50 % Stenosis, MID RCA: Eccentric: 25 % Stenosis; RIGHT AV SEGMENT: Diffuse: Eccentric: 25 % Stenosis; AORTIC ROOT: Calcified; Surgery consult for coronary revascularization vs. tertiary care center high risk PCI per cardiac cath 11/17/20 Results Test Name Value Interpretation Reference Range Facility Plastic Surgery Visit Report on 05-02-2025 Plastic Surgery Visit Report [facility]astic [facility] Surgery [address], [address] [place] [address] OFFICE VISIT Date of Service: 05/02/25 MR#: [id number] Acct: [id number] Name: JENNIFER CUNNINGHAM Rep #: [id number] : 1940 Provider: Dr. Ernesto Mendes MD Age/Sex: 84/M [place] [facility] [place] Status: Signed Intake Vital Signs 3 04/25/25 06:53 04/29/25 11:40 Height 5 ft 6 in 5 ft 6 in Intake Visit Reasons: 1 W FU Chief Complaint: post op Is patient in pain?: No Allergies amoxicillin (From Augmentin) Allergy (Verified 05/02/25 13:50) Rash clavulanic acid (From Augmentin) Allergy (Verified 05/02/25 13:50) Rash oxycodone Adverse Reaction (Intermediate, Verified 05/02/25 13:50) OTHER Opioids - Morphine Analogues Adverse Reaction (Verified 05/02/25 13:50) Low blood pressure Medications 3 ???Medication ???Instructions ???Recorded ???Confirmed ???Type tamsulosin 0.4 mg capsule 0.4 mg PO DAILY PROSTATE 11/30/20 05/02/25 History albuterol sulfate 2.5 mg/3 mL 2.5 mg inhalation Q6H PRN 09/23/21 05/02/25 History (0.083 %) solution for nebulization shortness of breath or wheezing aspirin 81 mg tablet,delayed 81 mg PO DAILY #1 TAB 09/23/21 Rx release furosemide 40 mg tablet 40 mg PO DAILY 04/04/22 05/02/25 H istory metoprolol succinate 100 mg 50 mg PO BID 09/28/22 05/02/25 His tory tablet,extended release 24 hr amlodipine 10 mg tablet 5 mg PO DAILY BP 12/21/23 05/02/25 History levothyroxine 125 mcg tablet 125 mcg PO DAILY 12/21/23 05/02/25 History atorvastatin 40 mg tablet 40 mg PO QHS for cholesterol #90 0 05/22/24 05/02/25 Rx TABLETS magnesium oxide 400 mg (241.3 mg 400 mg PO BID 03/14/25 05/02/25 Hi story magnesium) tablet potassium chloride 10 mEq 10 meq PO DAILY 03/14/25 05/02/25 History capsule,extended release cetirizine 10 mg tablet (24Hour 10 mg PO DAILY PRN allergy symptom s 04/25/25 05/02/25 History Allergy) oxycodone 5 mg tablet 5 mg PO BID PRN pain 5 days #10 05/02/25 Rx tabs clindamycin HCl 300 mg capsule 300 mg PO TID 7 days #21 caps 04/1505/02/25 Rx (Cleocin HCl) Have you fallen in the past year?: No Subjective Details: Patient 1 week out from excision of a melanoma (the primary lesion) from his central lower chest. Has warmth swelling and tenderness around the central portion of the incision site consistent with an abscess. There were no reports of fever or chills at the time of the visit, but the patient was advised to monitor for these symptoms and seek medical attention if they occur. The infection was described as looking a little bit infected, and antibiotics were prescribed to manage it. ROS - General: Denies fever or chills. Attestation: Documentation on this patient encounter was supported using ambient scribe technology/ voice AI technology. The patient consented to recording for the purpose of documenting the encounter. Provider reviewed content of the generated note prior to signature. Objective Details: Induration with fluid collection in the central portion of the incision Coding Level of Care Code Global Post Op Diagnoses Malignant neoplasm of skin of chest C44.509 [facility] Medical History Loss of hearing Edentulous Anxiety Thyroid disease Prostate disease Easy bruising Blackout Chronic cough Former smoker History of irregular heartbeat History of echocardiogram Cardiology follow-up encounter Malignant melanoma COPD (chronic obstructive pulmonary disease) Essential hypertension Hyperlipidemia Open wound of left thigh Sepsis Abscess or cellulitis of thigh 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 Non-rheumatic mitral regurgitation Pulmonary hypertension NSTEMI (non-ST elevated myocardial infarction) CHF (congestive heart failure) Surgical History History of external ear surgery History of coronary artery bypass surgery ( 11/25/20) Family History Grandmother CAD (coronary artery disease) Father CAD (coronary artery disease) Social History Smoking Status: Former smoker Tobacco: How many years used: 20 alcohol intake: never substance use type: does not use caffeine: Yes Type: coffee Number of servings: 4 additional social history: pt denies vaping, pt denies marijuana, pt denies smoking pt uses ibuprofen as needed pt uses aspirin daily Assessment and Plan (No Qualifiers) Assessment and Plan (1) Malignant neoplasm of skin of chest: Status: Acute Comment: Metastatic melanoma Plan Assessment and Plan The patient i (more content not included)... [facility] Oncology Visit Reporton 04-15 Oncology Visit Report [facility] [place] [address] OFFICE VISIT Date of Service: 04/29/25 1135 MR#: [id number] Acct: [id number] Name: JENNIFER CUNNINGHAM Rep #: [id number] : 1940 From: Patricia Beckham MD Age/Sex: 84/M [place] [facility] Status: Signed HPI Subjective Date of Service 04/29/25 Chief Complaint Metastatic melanoma History of Present [...] pending and the findings will be reported in an addendum ADDENDUM This addendum is added to incorporate an outside pathology consultation report. The case was examined at [facility] (#[id number]) and the following diagnosis was rendered. [...] tumors. 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 2. A second lesion in the epigastric area that the patient reports he has had a birthmark for decades that again in the course of the past several weeks few months started to ulcerate and bleed. Patient did not volunteer to provide this information until I directly asked him about why he has a Band-Aid on his upper abdomen. April 09, 2025 A. Abdomen, right upper, lesion, excision: - Malignant melanoma with ulceration, involving the superior surgical margin. - Poli level IV, Breslow thickness 5 mm, [id number] SYNOPTIC REPORT TUMOR: Procedure: excision Specimen Laterality: [...] Not applicable (no regional lymph nodes submitted or found) DISTANT METASTASIS Distant Site(s) Involved: skin, subcutaneous [...] to 2.0 mm in thickness, ulceration status unknown or unspecified ___ pT2a: Melanoma greater than 1.0 mm and less than or equal to 2.0 mm in thickness, without ulceration ___ pT2b: Melanoma greater than 1.0 mm and less than or equal to 2.0 mm in thickness, with ulceration ___ pT2 (subcategory cannot be determined) pT3: Melanoma greater than 2.0 to 4.0 mm in thickness, ulceration status unknown or unspecified ___ pT3a: Melanoma greater than 2.0 mm and less than or equal to 4.0 mm in thickness, without ulceration ___ pT3b: Melanoma greater than 2.0 mm and less than or equal to 4.0 mm in thickness, with ulceration ___ pT3 (subcategory cannot be determined) pT4: Melanoma greater than 4.0 mm in thickness, ulcer (more content not included)... Normal [facility] Radiation Oncology Visiton 0 04-29-2025 Radiation Oncology Visit [facility] [address] [place] [address] OFFICE VISIT Date of Service: 04/29/25 1111 MR#: [id number] Acct: [id number] Name: JENNIFER CUNNINGHAM Rep #: [id number] : 1940 From: Sam Méndez DO Age/Sex: 84/M [place] [facility] [place]: Signed Intake Vital Signs 04/16/25 15:56 04/25/25 06:53 04/29/25 11:14 Height 5 ft 8 in 5 ft 6 in 5 ft 6 in Weight: 181 lb BMI 29.2 BP 134/69 H Blood Pressure Location Lt brachial Position Sitting Respiration 16 Pulse 85 Pulse Source Monitor Temp 97.1 F L Temperature Source Temporal Artery Pulse Oximetry (%) 94 Oxygen Delivery Method room air Intake Visit Reasons: CONSULT - SKIN CA Is patient in pain?: Yes (chest ) Pain scale (1-10): 9 Allergies amoxicillin (From Augmentin) Allergy (Verified 04/29/25 11:35) Rash clavulanic acid (From Augmentin) Allergy (Verified 04/29/25 11:35) Rash oxycodone Adverse Reaction (Intermediate, Verified 04/29/25 11:35) OTHER Opioids - Morphine Analogues Adverse Reaction (Verified 04/29/25 11:35) Low blood pressure Medications ???Medication ???Instructions ???Recorded ???Confirmed ???Type tamsulosin 0.4 mg capsule 0.4 mg PO DAILY PROSTATE 11/30/20 04/29/25 History albuterol sulfate 2.5 mg/3 mL 2.5 mg inhalation Q6H PRN 09/23/21 04/29/25 History (0.083 %) solution for nebulization shortness of breath or wheezing aspirin 81 mg tablet,delayed 81 mg PO DAILY #1 TAB 09/23/21 Rx release furosemide 40 mg tablet 40 mg PO DAILY 04/04/22 04/29/25 H istory metoprolol succinate 100 mg 50 mg PO BID 09/28/22 04/29/25 His tory tablet,extended release 24 hr amlodipine 10 mg tablet 5 mg PO DAILY BP 12/21/23 04/29/25 History levothyroxine 125 mcg tablet 125 mcg PO DAILY 12/21/23 04/29/25 History atorvastatin 40 mg tablet 40 mg PO QHS for cholesterol #90 0 05/22/24 04/29/25 Rx TABLETS magnesium oxide 400 mg (241.3 mg 400 mg PO BID 03/14/25 04/29/25 Hi story magnesium) tablet potassium chloride 10 mEq 10 meq PO DAILY 03/14/25 04/29/25 History capsule,extended release cetirizine 10 mg tablet (24Hour 10 mg PO DAILY PRN allergy symptom s 04/25/25 04/29/25 History Allergy) oxycodone 5 mg tablet 5 mg PO BID PRN pain 5 days #10 04/29/25 Rx tabs Have you fallen in the past year?: No PFSH PFSH Medical History Loss of hearing Edentulous Anxiety Thyroid disease Prostate disease Easy bruising Blackout Chronic cough Former smoker History of irregular heartbeat History of echocardiogram Cardiology follow-up encounter Malignant melanoma COPD (chronic obstructive pulmonary disease) Essential hypertension Hyperlipidemia Open wound of left thigh Sepsis Abscess or cellulitis of thigh 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 Non-rheumatic mitral regurgitation Pulmonary hypertension NSTEMI (non-ST elevated myocardial infarction) CHF (congestive heart failure) Home Medications ???Medication ???Instructions ???Recorded ???Last Taken ???Type tamsulosin 0.4 mg capsule 0.4 mg PO DAILY PROSTATE 11/30/20 04/24/25 History albuterol sulfate 2.5 mg/3 mL 2.5 mg inhalation Q6H PRN 09/23/21 Unknown History (0.083 %) solution for nebulization shortness of breath or wheezing aspirin 81 mg tablet,delayed 81 mg PO DAILY #1 TAB 09/23/2105/09 Rx release furosemide 40 mg tablet 40 mg PO DAILY 04/04/22 04/24/25 H istory metoprolol succinate 100 mg 50 mg PO BID 09/28/22 04/24/25 His tory tablet,extended release 24 hr amlodipine 10 mg tablet 5 mg PO DAILY BP 12/21/23 04/24/25 History levothyroxine 125 mcg tablet 125 mcg PO DAILY 12/21/23 04/24/25 History atorvastatin 40 mg tablet 40 mg PO QHS for cholesterol #90 0 05/22/24 04/24/25 Rx TABLETS magnesium oxide 400 mg (241.3 mg 400 mg PO BID 03/14/25 04/24/25 Hi story magnesium) tablet potassium chloride 10 mEq 10 meq PO DAILY 03/14/25 04/24/25 History capsule,extended release cetirizine 10 mg tablet (24Hour 10 mg PO DAILY PRN allergy symptom s 04/25/25 04/25/25 History Allergy) oxycodone 5 mg tablet 5 mg PO BID PRN pain 5 days #10 Unknown Rx tabs Allergy/AdvReac Type Severity Reaction Status Date / Time amoxicillin (From Augmentin) Allergy Rash Verified 04/29/25 11:35 clavulanic acid (From Allergy Rash Verified 04/29/25 11:35 Augmentin) oxycodone AdvReac Intermediate OTHER Verified 04/29/25 11:35 Opioids - Morphine Analogues AdvReac Low blood Verified 04/29/25 11:35 pressure Family History Grandmother CAD (coronary artery disease) Father CAD (c (more content not included)... [facility] H AND P Exam - Surgicalon H&P Exam - Surgical [facility] Medical Records Department [address] [place] [address] H P Exam - Surgical 04/25/25 0812 MR#: [id number] Acct: [id number] Name: JENNIFER CUNNINGHAM Rep #: [id number] : 1940 84 From: Ernesto Mendes MD PCP: Dr. Douglas Ball MD [place] [place] Location: [address] HPI - General HPI Narrative JENNIFER CUNNINGHAM, is a 84 M who presents with melanoma on chest. Here for excision of scar for local control of the primary tumor. [facility] Medical History Loss of hearing Edentulous Anxiety Thyroid disease Prostate disease Easy bruising Blackout Chronic cough Former smoker History of irregular heartbeat History of echocardiogram Cardiology follow-up encounter Malignant melanoma COPD (chronic obstructive pulmonary disease) Essential hypertension Hyperlipidemia Open wound of left thigh Sepsis Abscess or cellulitis of thigh 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 Non-rheumatic mitral regurgitation Pulmonary hypertension NSTEMI (non-ST elevated myocardial infarction) CHF (congestive heart failure) Home Medications ???Medication ???Instructions ???Recorded ???Last Taken ???Type tamsulosin 0.4 mg capsule 0.4 mg PO DAILY PROSTATE 11/30/20 04/24/25 History albuterol sulfate 2.5 mg/3 mL 2.5 mg inhalation Q6H PRN 09/23/21 Unknown History (0.083 %) solution for nebulization shortness of breath or wheezing aspirin 81 mg tablet,delayed 81 mg PO DAILY #1 TAB 09/23/2105/09 Rx release furosemide 40 mg tablet 40 mg PO DAILY 04/04/22 04/24/25 H istory metoprolol succinate 100 mg 50 mg PO BID 09/28/22 04/24/25 His tory tablet,extended release 24 hr amlodipine 10 mg tablet 5 mg PO DAILY BP 12/21/23 04/24/25 History levothyroxine 125 mcg tablet 125 mcg PO DAILY 12/21/23 04/24/25 History atorvastatin 40 mg tablet 40 mg PO QHS for cholesterol #90 0 05/22/24 04/24/25 Rx TABLETS magnesium oxide 400 mg (241.3 mg 400 mg PO BID 03/14/25 04/24/25 Hi story magnesium) tablet potassium chloride 10 mEq 10 meq PO DAILY 03/14/25 04/24/25 History capsule,extended release cetirizine 10 mg tablet (24Hour 10 mg PO DAILY PRN allergy symptom s 04/25/25 04/25/25 History Allergy) Allergy/AdvReac Type Severity Reaction Status Date / Time amoxicillin (From Augmentin) Allergy Rash Verified 04/25/25 06:51 clavulanic acid (From Allergy Rash Verified 04/25/25 06:51 Augmentin) oxycodone AdvReac Intermediate OTHER Verified 04/25/25 06:51 Opioids - Morphine Analogues AdvReac Low blood Verified 04/25/25 06:51 pressure Family History Grandmother CAD (coronary artery disease) Father CAD (coronary artery disease) Surgical History History of external ear surgery History of coronary artery bypass surgery ( 11/25/20) Social History Smoking Status: Former smoker Tobacco: How many years used: 20 alcohol intake: never substance use type: does not use caffeine: Yes Type: coffee Number of servings: 4 additional social history: pt denies vaping, pt denies marijuana, pt denies smoking pt uses ibuprofen as needed pt uses aspirin daily Vital Signs Vital Signs Vital Signs: 04/25/25 06:53 04/25/25 06:53 Temperature 97.8 F Temperature Source Temporal Pulse Rate 97 Respiratory Rate 16 Respiratory Pattern Normal Blood Pressure 153/71 H Blood Pressure Mean 98 Blood Pressure Source Monitor Blood Pressure Position Semi-Fowlers Blood Pressure Location Right Arm Pulse Ox 96 Oxygen Delivery Method Room Air Weight Weight: 174 lb 2.643 oz Body Mass Index (BMI) 28.0 Physical Exam Narrative Right chest mass Right chest scar (marked with 2 cm margins for excision) Assessment Plan Assessment/Plan (1) Malignant neoplasm of skin of chest: (2) Malignant melanoma: QUALIFIERS: Melanoma location: unspecified site Qualified Code(s): C43.9 - Malignant melanoma of skin, unspecified PLAN: Plan I talked to the patient extensively about the risks of surgery, including bleeding, infection, damage to surrounding structures, poor scaring, surgical site dehiscence and wound formation, need for wound care, need for repeat operations, failure to obtain the desired result, DVT/PE, and the risks of anesthesia including , including stroke (from low blood pressure/ischemia or clot). The benefits and alternatives of this surgery were also discussed. All of their questions were answered, and they agreed to proceed with surgery. I talked to his oncologist. Our plan is for control today of the primary (more content not included)... [facility] [email or web address] 04-25-2025 MR/POSTOP.[facility] Medical Records Department [address] [place] [address] Anesthesia Postop Eval I 04/25/25 1003 MR#: [id number] Acct: [id number] Name: JENNIFER CUNNINGHAM Rep #: [id number] : 1940 84 From: Mann Collins CRNA PCP: Dr. Douglas Ball MD Status:[employer] Y Race: C Location: [place] [address] Anesthesia: Postop Eval I Current Vital Signs Temperature: 97.2 F Pulse Rate: 90 Blood Pressure: 123/66 Respiratory Rate: 20 Pulse Ox: 93 Oxygen Delivery Method: Room Air Assessment Airway patent: Yes Spontaneous unlabored respirations: Yes Mental status: Awake and Calm nausea: No Vomiting: No Anesthesia Complication: No Fluid Hydration Crystalloid volume administer (ml): 1,000 Total IV fluid infused: 1,000 Progress Note Anesthesia document: Postop Eval 1 completed: Yes 04/25/25 1004 Date Mann Collins CRNA Cosigner Signature: Date CC: Signed [facility] MR/[id number] 04-25-2025 MR/POSTOPAN2 [facility] Medical Records Department [address] [place] [address] Anesthesia Postop Eval II 04/25/25 1146 MR#: [id number] Acct: [id number] Name: JENNIFER CUNNINGHAM Rep #: [id number] : 1940 84 From: Jose Alberto Mcgill MD PCP: Dr. Douglas Ball MD Status:[facility] Y Race: C [place] [facility] [place]esthesia Postop Eval I Sum Postop Eval Completion status Anesthesia document: Postop Eval 1 completed: Yes Anesthesia Postop Eval I Summary Anesthesia Postop Eval I Summary: Anesthesia Postop Eval I: Assessment Summary Airway patent Yes 04/25/25 10:04 [email or web address] Spontaneous unlabored Yes 04/25/25 10:04 [email or web address] respirations Mental status Awake,Calm 04/25/25 10:04 [email or web address] nausea No 04/25/25 10:04 [email or web address] Vomiting No 04/25/25 10:04 [email or web address] Anesthesia Postop Eval I: Fluid Summary Crystalloid volume administer 1,000 04/25/25 10:04 [email or web address] (ml) Colloids volume administered ( ml) Blood Product volume administered (ml) Total IV fluid infused 1,000 04/25/25 10:04 [email or web address] Anesthesia Postop Eval I: Summary Notes Anesthesia Complication No 04/25/25 10:04 [email or web address] Anesthesia Complication Comment: Post-operative progress note Anesthesia: Postop Eval II Evaluation Mental status: Awake Pain Level: 0 nausea: No Vomiting: No 04/25/25 1146 Date Jose Alberto Mcgill MD Cosigner Signature: Date CC: Signed [facility] Operative Reporton 5 Operative Report [facility] Medical Records Department [address] [place] [address] Operative Report 04/25/25 1720 MR#: [id number] Acct: [id number] Name: JENNIFER CUNNINGHAM Rep #: [id number] : 1940 84 From: Ernesto Mendes MD PCP: Dr. Douglas Ball MD Status:[facility] Location: [facility] [place] Operative Report (Standard) Operative Information Date of Procedure: 04/25/25 Pre-Operative Diagnosis: 1) Right lower chest melanoma Post-Operative Diagnosis: Same Surgery/Procedure Performed: 1) Excision for complete margins of the right lower chest melanoma (positive margins on initial excision of the 5 mm Breslow depth melanoma), 4 x 12 cm (2 cm margins circumferentially around the scar) (CPT: 31197) 2) Complex closure right lower chest wound, 12 cm (CPT: 33108, 73735) machine tool builder: Yes Us Administrative Law Judge: Jaquan Choudhary Tasks completed by nurse first assist: Opening closing and Retracting Type of Anesthesia: Local MAC (40 cc of a 50-50 mixture of 1% lidocaine with 1-200,000 epinephrine and quarter percent Marcaine with 1-200,000 epinephrine) RN Documented Start/Stop Times: Operation Date: 04/25/25 08:45 Case Time Into Pre-Op 04/25/25 06:37 Out of Pre-Op 04/25/25 08:41 Anesthesia Start 04/25/25 08:44 Into Room 04/25/25 08:44 Procedure Start 04/25/25 09:11 Procedure End 04/25/25 09:52 Anesthesia End 04/25/25 09:54 Out of Room 04/25/25 09:54 Into Recovery 04/25/25 09:56 Out of Recovery 04/25/25 10:22 Into Phase II Recovery 04/25/25 10:23 Out of Phase II 04/25/25 11:15 Procedure Start Time: 09:11 Procedure Stop Time: 09:52 Select all DRAINS/GRAFTS/IMPLA NTS that apply: None Estimated Blood Loss: 25 cc Specimen collected: Yes Description of specimen(s) removed: Melanoma scar with positive margins on pathology, marked 1 stitch at 12:00 and 3 stitches at 3:00 Description of surgery: Indications: Patient is an 84-year-old with metastatic melanoma. There is a large metastases in the right upper chest which is being managed by anticipated radiation. I was asked by the surgical oncologist and the cancer team to completely excise the primary lesion (excisional biopsy performed in clinic demonstrating a Breslow depth melanoma 5 mm with positive superior margins) on the right lower chest, which would definitively manage this lesion with wide local excision. There was no clinical residual melanoma, just scar. I talked the patient about the risk benefits and alternatives of this procedure and he and his family elected to proceed. Procedure details: Patient was correctly identified in preoperative holding and the area was marked for excision with 2 cm margins around the scar. He was taken back to the operating room where he was sedated and administered local anesthesia and prepped and draped in sterile fashion. A timeout was performed. A 10 blade scalpel was used to make an elliptical excision with 2 cm margins around the right lower chest scar for total excision of malignant lesion of 4 x 12 cm. Bovie electrocautery was used to dissect full-thickness down to the fascia and remove the 4 x 12 cm specimen and send to pathology labeled 1 stitch 12:00 and 3 stitches 3:00. Hemostasis was obtained with Bovie electrocautery and the wound was irrigated with copious months normal saline. There was far too much tension for primary closure. Therefore undermining was taken along the fascial plane of the chest and abdomen 8 cm inferiorly and 6 cm superiorly to advance the flaps to the midline (14 cm of undermining indicating complex closure). Progressive tension sutures were then applied with 3-0 Vicryl suture to both kill space and also advance the flap so that it would not have too much tension for the closure. Himanshu hemostatic agent was then applied. At this point the superior and inferior flaps were together and then closed with 2-0 PDS deep Elizabeth well suture and deep dermal 3-0 Monocryl suture followed by running subcuticular 3-0 Monocryl suture. Prineo tape was then applied on top. Patient tolerated the procedure well and was awakened and taken to the PACU in stable condition. Postoperative plan: Follow-up in 1 week for wound check and to discuss pathology Surgical Findings: Too much tension for primary closure requiring wide undermining Name: ???Insert Iva Melanoma ??? Synoptic Portion: Element Response Options Operation performed with curative intent. Yes for the primary but patient has metastatic disease Original Breslow thickness of the lesion [Melanoma ; 5 mm (to the tenth of a millimeter).] Clinical margin width 2 cm Depth of excision [Full-thickness skin/subcutaneous tissue down to fascia (melanoma) Complications Complications: No Admit VTE Documentation VTE Mechan Device Prophylaxis: SCD's 04/25/25 3432 Cosigner Signature (if applicable): CC: Dr. Parker (more content not included)... [facility] /Natacha 04-24-2025 MR/[facility] Medical Records Department [address] [place] [address] PAT - Anesthesia 04/24/25 1628 MR#: [id number] Acct: [id number] Name: JENNIFER CUNNINGHAM Rep #: [id number] : 1940 84 From: Roshan Espinoza MD PCP: Dr. Douglas Ball MD Status:PRE [facility] Y Race: C [place] [facility] [place] Pre-Assessment Diagnosis/Proposed Procedure Planned Operative Procedure(s): (R) Excision for margins right chest melanoma( primary lesion with primary closure Anesthesia History Anesthesia History - client executive: Anesthesia History - client executive Hx Hospitalization No 04/24/25 16:02 Any Problems With Anesthesia No 04/24/25 16:02 Cholinesterase deficiency No 04/24/25 16:02 You/Your Family Experience No 04/24/25 16:02 fever (hyperthermia) with Relationship Recent Exposure to Contagious Disease Does patient have nerve No 04/24/25 16:02 stimulator Patient instructed to have device shut off --Does patient have Pacemaker or ICD? When Was Last Pacemaker Check QUESTION #4 FULL TEXT: You/Your Family Experience fever (hyperthermia) with Anesthesia Last Oral Intake Last Oral intake: Last Oral Intake NPO since Meds taken in AM with sips of water? Meds patient instructed to take am of surgery PONV PONV - client executive: PONV - client executive Female No 04/24/25 16:02 HX of Motion Sickness No 04/24/25 16:02 HX of N/V After Surgery No 04/24/25 16:02 Non-Smoker Yes 04/24/25 16:02 Duration of Surgery greater Yes 04/24/25 16:02 than 60 minutes Number of Risk Factors 2 04/24/25 16:02 PONV Score Moderate Risk 04/24/25 16:02 Height Weight Height Weight: Anesthesia: Height Weight Height 5 ft 8 in 04/16/25 15:56 Respiratory Assessment Respiratory Assessment - client executive: Respiratory Tract Infection Hx - client executive Hx Respiratory Tract Infection No 04/24/25 16:02 STOP Sleep Apnea STOP Sleep Apnea - client executive: STOP Sleep Apnea - client executive Hx Hypertension Yes: PER PT, CONTROLLED ON 04/24/25 16:02 MEDS Hx Sleep Apnea No 04/24/25 16:02 CPAP BIPAP Do you snore loudly (louder Yes 04/24/25 16:02 than talking or can be heard Do you often feel tired/ No 04/24/25 16:02 fatigued/ sleepy during daytime? Has anyone observed you stop No 04/24/25 16:02 breathing during sleep? STOP Results Positive 04/24/25 16:02 QUESTION #5 FULL TEXT : Do you snore loudly (louder than talking or can be heard through closed doors)? 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 Specify any problems Hx of Preganancy in last 3 N/A 04/24/25 16:02 Months Nurse Filling Out Transfusion DESI 04/24/25 16:02 Questions: Date: 04/24/25 04/24/25 16:02 Time: 16:04 04/24/25 16:02 Patient unable to answer at this time (ie. confused, unrespo /Reproduct ion History /Reproduct mell History - client executive: /Reproduct mell Hx- client executive Hx Now Gestational Age (in weeks): EDC: Hx Hx Para Hx Section SAB [facility] Medical History (Updated 04/24/25 @ 16:12 by Ariane Robertson) Loss of hearing Edentulous Anxiety Thyroid disease Prostate disease Easy bruising Blackout Chronic cough Former smoker History of irregular heartbeat History of echocardiogram Cardiology follow-up encounter Malignant melanoma COPD (chronic obstructive pulmonary disease) Essential hypertension Hyperlipidemia Open wound of left thigh Sepsis Abscess or cellulitis of thigh 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 [facility] PET/CT Tumor WB Initialon PET/CT Tumor WB Initial [facility] Imaging Services [address] [place] [address] PET/CT Tumor WB Initial MR#: [id number] Acct: [id number] Name: JENNIFER CUNNINGHAM Rep #: [id number] : 1940 M 84 From: Dinesh Jefferson PCP: Dr. Douglas Ball MD Status: REG RCR Study: PET/CT Tumor WB Initial Date of Exam: 04/22/25 Exam# [id number] Ordering Dr: Patricia Beckham MD PROCEDURE: PET/CT TUMOR WB INITIAL 04/22/2025 REASON FOR EXAM: 84 y/o M with chest wall skin cancer. Melanoma staging. TECHNIQUE: Following the intravenous administration of radionucleotide, image acquisition on a dedicated PET/CT unit was performed at one hour post injection. A preliminary CT study encompassing the Head, neck, chest, abdomen, pelvis, and bilateral lower extremities was performed for purposes of attenuation correction and anatomic localization. The proximal thighs were also included. The patient's blood glucose level was 115 mg/dL (allowable range: 50-180 mg/dL). RADIOPHARMACEUTICAL : 14.196 mCi 18F-FDG (Fluorodeoxyglucose F18) IV was injected into he patient. RADIATION DOSE SUMMARY: Effective Dose: Approximately 7 mSv for a standard whole-body PET scan Organ Doses: Varies by organ, with higher doses typically to the bladder, liver, and brain COMPARISON: COMPARISON FROM CT, PET OR OTHER PERTINENT EXAMS: None. FINDINGS: Physiologic uptake: There may be expected metabolic uptake within the brain, tongue and floor of the mouth and larynx/vocal cords, heart, duane (many normal individuals have hilar uptake in less than 3 nodes with mildly avid hilar nodes less than 2.7 SUV), liver and spleen, system, and GI tract and symmetric muscle uptake. FDG AVID AND NON-AVID LESIONS. Reported avid SUV values (g/mL*) are maximum SUV. NECK: There are no significant neck abnormalities. CHEST: Severe coronary artery calcification is seen. Chest wall- A large exophytic right anterior lateral chest hypermetabolic mass is seen, with SUV max of 11.3. Axilla- A hypermetabolic right axillary lymph node, albeit without thickened cortex, and with the presence of fatty hilum, is seen, with SUV max of 3.5. This may represent malignant adenopathy. In the superior right axilla, at the level of the right glenohumeral joint, is seen a hypermetabolic lymph node with SUV max of 2.9. This is concerning for malignant adenopathy. Lung parenchyma- There are no significant lung parenchyma abnormalities. Mediastinum- There are no significant hilar or mediastinal adenopathy. Pleura- There are no significant pleural abnormalities. ABDOMEN: In the posterior right ascending colon, near the level of the aortic bifurcation, is seen a hypermetabolic focus with SUV max of 12.5. This is highly concerning for primary malignancy or metastatic disease. Stomach- No significant abnormalities. Liver- No significant abnormalities. Spleen- No significant abnormalities. Pancrease- No significant abnormalities. Kidneys- No significant abnormalities. Bowel- Normal bowel activity. Spine- No significant abnormalities. Prominent arterial calcification is noted; no evidence of abdominal aortic aneurysm. PELVIS: Moderate to moderately severe sigmoid diverticulosis is noted. Bowel- Normal physiologic bowel activity is identified. Masses- There are no pelvic masses. LOWER EXTREMITIES: No hypermetabolic focus is seen of the extremities. Bones- With the use of bone window settings, there are no osteolytic or osteoblastic lesions. There are no FDG avid lesions within the visualized portion of the axial skeleton. PET/PET/CT Tumor WB Initial IMPRESSION: FDG avid- 1. Large exophytic right anterolateral chest hypermetabolic mass, consistent with malignancy. 2. Right axillary lymph nodes concerning for malignant adenopathy. 3. Posterior right ascending colon hypermetabolic mass, with differential diagnosis including primary malignancy and metastatic disease. Other: Severe coronary artery calcification. Prominent arterial calcification; no evidence of abdominal aortic aneurysm. Please note the low-dose CT scan was performed to facilitate PET image reconstruction and anatomic localization and does not replace a diagnostic CT. Any diagnostic CT requested and performed at the time of the PET will be reported separately. Reading Location: [address] CC: Dr. Patricia Beckham MD; Dr. Douglas Ball MD Rn Birthing: Signed [facility] Plastic Surgery Visit Report on 04-16-2025 Plastic Surgery Visit Report [facility] Plastic Reconstructive Surgery [address], [address] [place] [address] OFFICE VISIT Date of Service: 04/16/25 MR#: [id number] Acct: [id number] Name: JENNIFER CUNNINGHAM Rep #: [id number] : 1940 Provider: Dr. Ernesto Mendes MD Age/Sex: 84/M Location: [facility] Status: Signed Intake Vital Signs 04/07/25 09:16 04/15/25 11:52 04/16/25 15:56 Height 5 ft 8 in 5 ft 8 in 5 ft 8 in BP 121/64 H Blood Pressure Location Lt brachial Position Sitting Respiration 18 Pulse 87 Temp 99.1 F Temp Source Temporal Pulse Oximetry (%) 94 Oxygen Delivery Method room air Intake Visit Reasons: post op Chief Complaint: post op chest lesion-in office procedure Accompanied by: Daughter Is patient in pain?: No Allergies amoxicillin (From Augmentin) Allergy (Verified 04/16/25 15:57) Rash clavulanic acid (From Augmentin) Allergy (Verified 04/16/25 15:57) Rash Opioids - Morphine Analogues Adverse Reaction (Verified 04/16/25 15:57) Low blood pressure Medications ???Medication ???Instructions ???Recorded ???Confirmed ???Type tamsulosin 0.4 mg capsule 0.4 mg PO DAILY PROSTATE 11/30/20 04/16/25 History albuterol sulfate 2.5 mg/3 mL 2.5 mg inhalation Q6H PRN 09/23/21 04/16/25 History (0.083 %) solution for nebulization shortness of breath or wheezing aspirin 81 mg tablet,delayed 81 mg PO DAILY #1 TAB 12/09/21 07/ 02/25 Rx release furosemide 40 mg tablet 40 mg PO DAILY 04/04/22 04/16/25 H istory metoprolol succinate 100 mg 50 mg PO BID 09/28/22 04/16/25 His tory tablet,extended release 24 hr amlodipine 10 mg tablet 5 mg PO DAILY BP 12/21/23 04/16/25 History levothyroxine 125 mcg tablet 125 mcg PO DAILY 12/21/23 04/16/25 History atorvastatin 40 mg tablet 40 mg PO QHS for cholesterol #90 0 05/22/24 04/16/25 Rx TABLETS magnesium oxide 400 mg (241.3 mg 400 mg PO BID 03/14/25 04/16/25 Hi story magnesium) tablet potassium chloride 10 mEq 10 meq PO DAILY 03/14/25 04/16/25 History capsule,extended release Have you fallen in the past year?: No Nurse's Note: pt here with daughter for post op-in office procedure abdominal lesion Subjective Details: The patient is an 84-year-old male presenting with malignant melanoma. The melanoma was identified following a biopsy performed a week ago, which showed a malignant lesion extending to the chest wall. The lesion has been noted to grow rapidly, with concerns about its potential spread to other areas of the body. The patient has undergone previous surgical excision, but the superior margin was positive, indicating incomplete resection. A PET scan is scheduled to assess the extent of the disease and guide further management. The patient expresses concerns about the impact of aggressive treatment options, such as radiation, on his quality of life given his age. There is ongoing discussion about the potential benefits of radiation therapy versus surgical excision for comfort and disease control. Attestation: Documentation on this patient encounter was supported using ambient scribe technology/ voice AI technology. The patient consented to recording for the purpose of documenting the encounter. Provider reviewed content of the generated note prior to signature. Objective Details: - Skin: Chest Incision clean, dry, and intact with no fluid accumulation Coding Level of Care Code Global Post Op Diagnoses Malignant melanoma, unspecified site C43.9 Melanoma location: unspecified site [facility] Medical History (Updated 04/18/25 @ 08:[address] 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 Normal [facility] Oncology Visit Reporton Oncology Visit Report [facility] [address] [place] [address] OFFICE VISIT Date of Service: 04/15/25 1148 MR#: [id number] Acct: [id number] Name: JENNIFER CUNNINGHAM Rep #: [id number] : 1940 From: Patricia Beckham MD Age/Sex: 84/M [place] [facility] [place]: Signed HPI Subjective Date of Service [...] pending and the findings will be reported in an addendum ADDENDUM This addendum is added to incorporate an outside pathology consultation report. The case was examined at [facility] (#[id number]) and the following diagnosis was rendered. [...] the course of the past several weeks few months started to ulcerate and bleed. Patient did not volunteer to provide this information until I directly asked him about why he has a Band-Aid on his upper abdomen. April 09, 2025 A. Abdomen, right upper, lesion, excision: - Malignant melanoma with ulceration, involving the superior surgical margin. - Poli level IV, Breslow thickness 5 mm, [id number] SYNOPTIC REPORT TUMOR: Procedure: excision Specimen Laterality: [...] Not applicable (no regional lymph nodes submitted or found) DISTANT METASTASIS Distant Site(s) Involved: skin, subcutaneous [...] to 2.0 mm in thickness, ulceration status unknown or unspecified ___ pT2a: Melanoma greater than 1.0 mm and less than or equal to 2.0 mm in thickness, without ulceration ___ pT2b: Melanoma greater than 1.0 mm and less than or equal to 2.0 mm in thickness, with ulceration ___ pT2 (subcategory cannot be determined) pT3: Melanoma greater than 2.0 to 4.0 mm in thickness, ulceration status unknown or unspecified ___ pT3a: Melanoma greater than 2.0 mm and less than or equal to 4.0 mm in thickness, without ulceration ___ pT3b: Melanoma greater than 2.0 mm and less than or equal to 4.0 mm in thickness, with ulceration ___ pT3 (subcategory cannot be determined) pT4: Melanoma greater than 4.0 mm in thickness, ulceration status unknown or unspecified ___ pT4a: Melanoma gr (more content not included)... Normal [facility] Plastic Surgery Visit Report on 04-09-2025 Plastic Surgery Visit Report [facility] Plastic Reconstructive Surgery [address], [address] [place], [place] [address] OFFICE VISIT Date of Service: 04/09/25 MR#: [id number] Acct: [id number] Name: JENNIFER CUNNINGHAM Rep #: [id number] : 1940 Provider: Dr. Ernesto Mendes MD Age/Sex: 84/M [place] [facility] [place] [place]: Signed Intake Vital Signs 3 04/07/25 [...] Reaction (Verified 04/07/25 09:13) Low blood pressure Medications 3 ???Medication ???Instructions ???Recorded ???Confirmed ???Type tamsulosin 0.4 mg capsule 0.4 mg PO DAILY PROSTATE 11/30/20 04/09/25 History albuterol sulfate 2.5 mg/3 mL 2.5 mg inhalation Q6H PRN 09/23/21 04/09/25 History (0.083 %) solution for nebulization shortness of breath or wheezing aspirin 81 mg tablet,delayed 81 mg PO DAILY #1 TAB 09/23/21 Rx release furosemide 40 mg tablet 40 mg PO DAILY 04/04/22 04/09/25 H istory metoprolol succinate 100 mg 50 mg PO BID 09/28/22 04/09/25 His tory tablet,extended release 24 hr amlodipine 10 mg tablet 5 mg PO DAILY BP 12/21/23 04/09/25 History levothyroxine 125 mcg tablet 125 mcg PO DAILY 12/21/23 04/09/25 History atorvastatin 40 mg tablet 40 mg PO QHS for cholesterol #90 0 05/22/24 04/09/25 Rx TABLETS magnesium oxide 400 mg (241.3 mg 400 mg PO BID 03/14/25 04/09/25 Hi story magnesium) tablet potassium chloride 10 mEq 10 meq PO DAILY 03/14/25 04/09/25 History capsule,extended release Have you fallen in the past year?: No Nurse's Note: bupivicaine 0.2 % [facility] [id number] lot [id number] and lidocaine 1% w epi [facility] [id number] lot [id number] exp [facility] Medical History COPD (chronic obstructive pulmonary disease) Essential hypertension Hyperlipidemia Open wound of left thigh Sepsis Abscess or cellulitis of thigh 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 Non-rheumatic mitral regurgitation Pulmonary hypertension NSTEMI (non-ST elevated myocardial infarction) CHF (congestive heart failure) Surgical History History of external ear surgery History of coronary artery bypass surgery ( 11/25/20) Family History Grandmother CAD (coronary artery disease) [...] for approximately three months, starting as a small pimple and growing to the size of a pea before continuing to enlarge. The lesion is described as vascular and exophytic, located superior [...] lesion, and then referred the patient to me. Biopsy results from 14 Mar 2025 are [...] is pending and the findings will be repo (more content not included)... Normal [facility] Surgery Specimen Level [place]ma Rosa 04-09-2025 Surgery Specimen Level IV Patient Age/Sex Location Account Attending Physician JENNIFER CUNNINGHAM 84/[facility] [id number] Dr. Ernesto Mendes MD Specimen: [id number] Received: 04/09/25 Status: TEO[place]ung [place] Num: [id number] Spec Type: Lesion Subm Dr: Dr. Ernesto Mendes MD HEADER OPERATION: Excision abdominal lesion PRE-OP DIAGNOSIS: Short superior, long lateral right upper abdominal lesion TISSUE SUBMITTED: A- Short superior, long lateral, right upper abdominal lesion MICROSCOPIC DIAGNOSIS A. Abdomen, right upper, lesion, excision: * Malignant melanoma with ulceration, involving the superior surgical margin. * Poli level IV, Breslow thickness 5 mm, [id number] SYNOPTIC REPORT TUMOR: Procedure: excision Specimen Laterality: right??? Tumor Site: skin, right upper abdomen Multiple Primary Sites (P=present, NA=not applicable):???NA Histologic Type: melanoma nos Maximum Tumor (Breslow) Thickness in Millimeters (mm): 5 mm Ulceration???(P=pre sent. N=not identified): P Extent of Ulceration in Millimeters (mm): 7 mm Anatomic (Poli) Level: IV (melanoma invades reticular dermis)??? Mitotic Rate: 5 mitoses per mm2 Macroscopic Satellite Lesion(s): Not identified??? Microsatellite/s (P=present. N=not identified): N Lymphatic and/or Vascular Invasion???(P=prese nt. N=not identified): P Neurotropism (P=present. N=not identified): P Tumor-Infiltrating Lymphocytes: Present, brisk??? Tumor Regression: Not identified??? MARGINS: Margin Status for Melanoma _X_ Invasive melanoma present at margin??? Margin(s) Involved by Invasive Melanoma _X_ Peripheral: superior ___ Deep REGIONAL LYMPH NODES Regional Lymph Node Status: Not applicable (no regional lymph nodes submitted or found)??? DISTANT METASTASIS??? Distant Site(s) Involved: skin, subcutaneous tissues of right chest wall pTNM CLASSIFICATION (AJCC 8th Edition) pT Category??? ___ pT not assigned (cannot be determined based on available pathological information)??? ___ pT0: No evidence of primary tumor (e.g., unknown primary or completely regressed Patient Age/Sex Location Account Attending Physician JENNIFER CUNNINGHAM 84/[facility] [id number] Dr. Ernesto Mendes MD melanoma)??? pT1: Melanoma 1.0 mm or less in thickness, ulceration status unknown or unspecified (see Note D)??? ___ pT1a: Melanoma less than 0.8 mm in thickness, without ulceration??? ___ pT1b: Melanoma less than 0.8 mm in thickness with ulceration; or Melanoma equal to or greater than 0.8 mm and less than or equal to 1.0 mm in thickness with or without ulceration??? ___ pT1 (subcategory cannot be determined)??? pT2: Melanoma greater than 1.0 to 2.0 mm in thickness, ulceration status unknown or unspecified??? ___ pT2a: Melanoma greater than 1.0 mm and less than or equal to 2.0 mm in thickness, without ?ulceration??? ___ pT2b: Melanoma greater than 1.0 mm and less than or equal to 2.0 mm in thickness, with ulceration??? ___ pT2 (subcategory cannot be determined)??? pT3: Melanoma greater than 2.0 to 4.0 mm in thickness, ulceration status unknown or unspecified??? ___ pT3a: Melanoma greater than 2.0 mm and less than or equal to 4.0 mm in thickness, without ?ulceration??? ___ pT3b: Melanoma greater than 2.0 mm and less than or equal to 4.0 mm in thickness, with ulceration??? ___ pT3 (subcategory cannot be determined)??? pT4: Melanoma greater than 4.0 mm in thickness, ulceration status unknown or unspecified??? ___ pT4a: Melanoma greater than 4.0 mm in thickness, without ulceration??? _X_ pT4b: Melanoma greater than 4.0 mm in thickness, with ulceration??? ___ pT4 (subcategory cannot be determined)??? pN Category??? _X_ pN not assigned (no nodes submitted or found)??? pM Category (required only if confirmed pathologically)??? ___ Not applicable - pM cannot be determined from the submitted specimen(s)??? pM1: Evidence of distant metastasis???([id number]) _X_ pM1a: Distant metastasis in skin (including subcutaneous tissues), soft tissues including muscle and???/ or non-regional lymph node(s)??? ___ pM1b: Distant metastasis to lung with or without M1a sites of disease??? ___ pM1c: Distant metastasis to non-CIRCULAR K[employer]ITTER [employer] visceral sites with or without M1a or M1b sites of dise (more content not included)... [facility] Comment on above: Performed By: #### P SUIV #### [facility] [address] [place], [place], [address] Oncology Visit Reporton 03-17 Oncology Visit Report [facility] [address] [place] [address] OFFICE VISIT Date of Service: 04/07/25 0910 MR#: [id number] Acct: [id number] Name: JENNIFER CUNNINGHAM Rep #: [id number] : 1940 From: Patricia Beckham MD Age/Sex: 84/M [place] [facility] [place] Status: Signed HPI Subjective Date of Service 04/07/25 Chief Complaint Chest wall lesion History of Present Illness 84-year-old male seen [...] pending and the findings will be reported in an addendum 2. A second lesion in the epigastric area that the patient reports he has had a birthmark for decades that again in the course of the past several weeks few months started to ulcerate and bleed. Patient did not volunteer to provide this information until I directly asked him about why he has a Band-Aid on his upper abdomen. April 02, [address]: FINDINGS: Hardware: Sternal wires and mediastinal vascular clips Lymph nodes: No significant mediastinal, hilar or axillary lymphadenopathy. Small number of normal- sized lymph nodes in the right axilla somewhat [...] in the immediate subcutaneous space. Amenable to ultrasound- guided needle biopsy. [facility] Medical History COPD (chronic obstructive pulmonary disease) Essential hypertension Hyperlipidemia Open wound of left thigh Sepsis Abscess or cellulitis of thigh 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 Non-rheumatic mitral regurgitation Pulmonary hypertension NSTEMI (non-ST elevated myocardial infarction) CHF (congestive heart failure) Surgical History History of external ear surgery History of coronary artery bypass surgery ( 11/25/20) Family History Grandmother CAD (coronary artery disease) Father CAD (coronary artery disease) Social History (Updated 04/07/25 @ 09:15 by Jennifer Rizzo) Smoking Status: Former smoker Tobacco: How many years used: 20 smoking status stop date: 10/16/74 alcohol intake: never substance use type: does not use caffeine: Yes Type: coffee Number of servings: 4 additional social history: pt denies vaping, pt denies marijuana, pt denies smoking pt uses ibuprofen as needed pt uses aspirin daily ROS Constitutional Constitutional: Reports systems reviewed and no addt'l complaints, except as documented and as per HPI Intake Vital Signs 03/31/25 15:56 04/07/25 09:11 04/07/25 09:16 Height 5 ft 8 in 5 ft 8 in 5 ft 8 in Weight: 82.554 kg 80.286 kg BMI 27.6 26.9 BP 164/66 H 143/73 H Blood Pressure Location Lt brachial Lt brachial Position Sitting Sitting Respiration 18 16 Pulse 87 70 Pulse Source Monitor Temp 98.6 F 97.3 F L Temperature Source Temporal Artery Pulse Oximetry (%) 94 95 Oxygen Delivery Method room air room air Intake Is patient in pain?: No Allergies amoxicillin (From Augmentin) Allergy (Verified 04/07/25 09:13) Rash clavulanic acid (From Augmentin) Allergy (Verified 04/07/25 09:13) Rash Opioids - Morphine Analogues Adverse Reaction (Verified 04/07/25 09:13) Low blood pressure Medications ???Medication ???Instructions ???Recorded ? (more content not included)... Normal [facility] Chest WITH Contraston 2024 Chest WITH Contrast [facility] Imaging Services [address] [place] [address] Chest WITH Contrast MR#: [id number] Acct: [id number] Name: JENNIFER CUNNINGHAM Rep #: [id number] : 1940 M 84 From: Matthew Gautam DO PCP: Dr. Douglas Ball MD Status: REG CLI Study: Chest WITH Contrast Date of Exam: 04/02/25 Exam# [id number] Ordering Dr: Ernesto Mendes MD PROCEDURE: CHEST WITH CONTRAST 04/02/2025 [...] hilar or axillary lymphadenopathy. Small number of normal- sized lymph nodes in the right axilla somewhat [...] in the immediate subcutaneous space. Amenable to ultrasound- guided needle biopsy. Reading Location: [facility] CC: Dr. Ernesto Mendes MD; Dr. Douglas Ball MD Rn Birthing: Signed Normal [facility] SURG PATH REQUESTon 04-02-20 Case Report [facility] Comment on above: Result Comment: Surg ical Pathology Report Case: [id number] Authorizing Provider: Monique Freeman MD Collected: 04/02/2025 10:10 AM Ordering Location: [facility] Received: 04/02/2025 10:11 AM [place] Pathologist: Daquan Mercer MD, PhD Specimen: SURG PATH, [facility] Block [id number]; Right chest, mass, biopsy; Molecular testsing Performed By: #### S URGP #### [facility] (DEFAULT) [address] [place] [address] Clinical History [facility] Comment on above: Result Comment: Rece ived is a request from Dr. Monique Freeman at [facility] for molecular testing on case [id number]. Performed By: #### S URGP #### [facility] (DEFAULT) [address] [address] Gross Description [facility] Comment on above: Result Comment: The following material(s) are received from [facility], [address] [place] [address] with an identifying Surgical Pathology Report: 1 paraffin block (A1) labeled [id number], which is submitted to [facility] for Solid Tumor Mutation Panel and NTRK Gene Fusion testing. Outside materials are returned in 60 days under separate cover with our number recorded on them. Grosser for this case was: Melissa Paris Performed By: #### S URGP #### [facility] (DEFAULT) [address] [address] Microscopic Description Tissue was asses sed by a molecular pathologist to select areas for analysis and to correlate immunostaining with histology. No morphologic assessment was requested. [facility] Comment on above: Performed By: #### S URGP #### [facility] (DEFAULT) [address] [address] Pathologic Diagnosis [facility] Comment on above: Result Comment: Outs jessy Block [id number] (04/02/25) A. 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 Yes [address] [address] Performed By: #### S URGP #### [facility] (DEFAULT) [address] [address] Plastic Surgery Visit Report on 03-31-2025 Plastic Surgery Visit Report [facility] Plastic Reconstructive Surgery [address], [address] [place] [address] OFFICE VISIT Date of Service: 03/31/25 MR#: [id number] Acct: [id number] Name: JENNIFER CUNNINGHAM Rep #: [id number] : 1940 Provider: Dr. Ernesto Mendes MD Age/Sex: 84/M [place] [facility] Status: Signed Intake Vital Signs 3 03/14/25 10:13 03/31/25 15:56 Height 5 ft 8 in 5 ft 8 in Weight: 182 lb BMI 27.6 BP 164/66 H Blood Pressure Location Lt brachial Position Sitting Respiration 18 Pulse 87 Temp 98.6 F Temp Source Temporal Pulse Oximetry (%) 94 Oxygen Delivery Method room air Intake Visit Reasons: MASS ON CHEST Accompanied by: Daughter Is patient in pain?: Yes (10/25 ) Allergies amoxicillin (From Augmentin) Allergy (Verified 03/31/25 15:58) Rash clavulanic acid (From Augmentin) Allergy (Verified 03/31/25 15:58) Rash Opioids - Morphine Analogues Adverse Reaction (Verified 03/31/25 15:58) Low blood pressure Medications 3 ???Medication ???Instructions ???Recorded ???Confirmed ???Type tamsulosin 0.4 mg capsule 0.4 mg PO DAILY PROSTATE 11/30/20 03/31/25 History albuterol sulfate 2.5 mg/3 mL 2.5 mg inhalation Q6H PRN 09/23/21 03/31/25 History (0.083 %) solution for nebulization shortness of breath or wheezing aspirin 81 mg tablet,delayed 81 mg PO DAILY #1 TAB 09/23/21 Rx release furosemide 40 mg tablet 40 mg PO DAILY 04/04/22 03/31/25 H istory metoprolol succinate 100 mg 50 mg PO BID 09/28/22 03/31/25 His tory tablet,extended release 24 hr amlodipine 10 mg tablet 5 mg PO DAILY BP 12/21/23 03/31/25 History levothyroxine 125 mcg tablet 125 mcg PO DAILY 12/21/23 03/31/25 History atorvastatin 40 mg tablet 40 mg PO QHS for cholesterol #90 0 05/22/24 03/14/25 Rx TABLETS magnesium oxide 400 mg (241.3 mg 400 mg PO BID 03/14/25 03/31/25 Hi story magnesium) tablet potassium chloride 10 mEq 10 meq PO DAILY 03/14/25 03/31/25 History capsule,extended release Have you fallen in the past year?: No Nurse's Note: pt here with daughter, referred to office by Dr. Mojica, for eval of right mass on chest [facility] History COPD (chronic obstructive pulmonary disease) Essential hypertension Hyperlipidemia Open wound of left thigh Sepsis Abscess or cellulitis of thigh 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 Non-rheumatic mitral regurgitation Pulmonary hypertension NSTEMI (non-ST elevated myocardial infarction) CHF (congestive heart failure) Surgical History History of external ear surgery History of coronary artery bypass surgery ( 11/25/20) Family History Grandmother CAD (coronary artery disease) Father CAD (coronary artery disease) Social History Smoking Status: Former smoker alcohol intake: never substance use type: does not use caffeine: Yes Type: coffee Number of servings: 4 additional social history: pt denies vaping, pt denies marijuana, pt denies smoking pt uses ibuprofen as needed pt uses aspirin daily HPI MASS ON CHEST Details: The patient is an 84-year-old male presenting with a right chest mass suspected to be a high-grade malignant neoplasm. The mass was initially thought to be an abscess and has been present for approximately three months, starting as a small pimple and growing to the size of a pea before continuing to enlarge. The lesion is described as vascular and exophytic, located superior [...] lesion, and then referred the patient to ia. Biopsy results from 14 Mar 2025 are [...] pending and the findings will be reported in an (more content not included)... Normal [facility] Absolute lymphocyte countOrd ered By: Douglas Ball on 03-19-2025 Lymphocytes Auto (Unsp spec) [#/Vol] 4.63 10*3/uL High 0.83-4.51 [facility] Absolute neutrophil countOrd ered By: Douglas Ball on 03-19-2025 Neutrophils (Bld) [#/Vol] 3.9 10*3/uL 2.0-7.7 [facility] Anion gap in Serum or Plasma Ordered By: Douglsa Ball on 03-19-2025 Anion gap [Moles/Vol] 11 mmol/L 5-15 [facility] Automated lymphocyte count a s percentage of total leukocytesOrdered By: Douglas Ball on 03-19-2025 Lymphocytes/100 WBC Auto (Unsp spec) 50.0 % High 19-41 [facility] BUN/creatinine ratioOrdered By: Douglas Ball on 03-19-2025 Urea nitrogen/Creatinine [Mass ratio] 13.3 mg/mg 10-20 [facility] Basophil percentageOrdered B y: Douglas Ball on 03-19-2025 Basophils/100 WBC (Bld) 0.6 % 0-1 [facility] Bilirubin, totalOrdered By: Douglas Ball on 03-19-2025 Bilirubin [Mass/Vol] 0.64 mg/dL 0.00-1.30 [facility] CBC W/Diff, Automatedon Absolute Lymph 4.63 X10 3/uL High 0.83-4.51 [facility] Comment on above: Performed By: #### L 506.1001, L501.9520, L100.0100, L500.4050 #### [facility] [address] [place], [address] Absolute Neut 3.9 X10 3/uL Normal 2.0-7.7 [facility] Comment on above: Performed By: #### L 506.1001, L501.9520, L100.0100, L500.4050 #### [facility] [address] [place], [address] Basophils/100 WBC (Bld) 0.6 % Normal 0-1 [facility] Comment on above: Performed By: #### L 506.1001, L501.9520, L100.0100, L500.4050 #### [facility] [address] [place], [address] Eosinophils/100 WBC (Bld) 2.4 % Normal 0-5 [facility] Comment on above: Performed By: #### L 506.1001, L501.9520, L100.0100, L500.4050 #### [facility] [address] [place], [address] Erythrocyte distribution width (RBC) [Ratio] 15.5 % High 11.6-14.6 [facility] Comment on above: Performed By: #### L 506.1001, L501.9520, L100.0100, L500.4050 #### [facility] [address] [place], [address] Hematocrit (Bld) [Volume fraction] 37.0 % Low 40-54 [facility] Comment on above: Performed By: #### L 506.1001, L501.9520, L100.0100, L500.4050 #### [facility] [address] [place], [address] Hemoglobin (Bld) [Mass/Vol] 12.2 g/dL Low 13.0-16.5 [facility] Comment on above: Performed By: #### L 506.1001, L501.9520, L100.0100, L500.4050 #### [facility] [address] [place], [address] IG% 0.200 Normal 0.0-0.9 [facility] Comment on above: Result Comment: IG% - Immature Granulocytes (promyelocytes, myelocytes and metamyelocytes) > 1% indicates that a LEFT SHIFT is Present. Performed By: #### L 506.1001, L501.9520, L100.0100, L500.4050 #### [facility] [address] [place], [address] Lymphocytes/100 WBC (Bld) 50.0 % High 19-41 [facility] Comment on above: Performed By: #### L 506.1001, L501.9520, L100.0100, L500.4050 #### [facility] [address] [place], [address] MCH (RBC) [Entitic mass] 30.0 pg Normal 27.0-32.0 [facility] Comment on above: Performed By: #### L 506.1001, L501.9520, L100.0100, L500.4050 #### [facility] [address] [place], [address] MCHC (RBC) [Mass/Vol] 33.0 g/dL Normal 32-36 [facility] Comment on above: Performed By: #### L 506.1001, L501.9520, L100.0100, L500.4050 #### [facility] [address] [place], [address] MCV (RBC) [Entitic vol] 90.9 fL Normal 80-94 [facility] Comment on above: Performed By: #### L 506.1001, L501.9520, L100.0100, L500.4050 #### [facility] [address] [place], [address] Monocytes/100 WBC (Bld) 5.0 % Normal 0-10 [facility] Comment on above: Performed By: #### L 506.1001, L501.9520, L100.0100, L500.4050 #### [facility] [address] [place], [address] Neutrophils/100 WBC (Bld) 41.8 % Low 47-70 [facility] Comment on above: Performed By: #### L 506.1001, L501.9520, L100.0100, L500.4050 #### [facility] [address] [place], [address] Nucleated RBC (Bld) [#/Vol] 0 10*3/uL Normal 0-5 [facility] Comment on above: Performed By: #### L 506.1001, L501.9520, L100.0100, L500.4050 #### [facility] [address] [place], [address] Platelet mean volume (Bld) [Entitic vol] 9.2 fL Normal 6.2-12.0 [facility] Comment on above: Performed By: #### L 506.1001, L501.9520, L100.0100, L500.4050 #### [facility] [address] [place], [address] Platelets (Bld) [#/Vol] 180 10*3/uL Normal 150-450 [facility] Comment on above: Performed By: #### L 506.1001, L501.9520, L100.0100, L500.4050 #### [facility] [address] [place], [address] RBC (Bld) [#/Vol] 4.07 10*6/uL Low 4.6-6.2 [facility] Comment on above: Performed By: #### L 506.1001, L501.9520, L100.0100, L500.4050 #### [facility] [address] [place], [address] RDW SD 51.8 fl High 35.1-43.9 [facility] Comment on above: Performed By: #### L 506.1001, L501.9520, L100.0100, L500.4050 #### [facility] [address] [place], [address] WBC (Bld) [#/Vol] 9.3 10*3/uL Normal 4.4-11.0 [facility] Comment on above: Performed By: #### L 506.1001, L501.9520, L100.0100, L500.4050 #### [facility] [address] [place], [address] Carbon dioxide, total [Moles /volume] in Central venous bloodOrdered By: Douglas Ball on 03-19-2025 CO2 [Moles/Vol] 23.3 mmol/L 21.0-32.0 [facility] Chloride assayOrdered By: Rob Ball on 03-19-2025 Chloride [Moles/Vol] 105 mmol/L 98-108 [facility] Comprehensive Metabolic Prof ilon 03-19-2025 Albumin [Mass/Vol] 4.2 g/dL Normal 3.4-4.8 [facility] Comment on above: Performed By: #### L 506.1001, L501.9520, L100.0100, L500.4050 ####[facility] [address] [place], [address] Albumin/Globulin [Mass ratio] 1.5 {ratio} Normal 0.9-2.4 [facility] Comment on above: Performed By: #### L 506.1001, L501.9520, L100.0100, L500.4050 ####[facility] [address] [place], [address] ALK PHOS 157 U/L High 40-129 [facility] Comment on above: Performed By: #### L 506.1001, L501.9520, L100.0100, L500.4050 ####[facility] [address] [place], [address] ALT [Catalytic activity/Vol] 17 U/L Normal <=46 [facility] Comment on above: Performed By: #### L 506.1001, L501.9520, L100.0100, L500.4050 ####[facility] [address] [place], [address] AST [Catalytic activity/Vol] 26 U/L Normal <=37 [facility] Comment on above: Performed By: #### L 506.1001, L501.9520, L100.0100, L500.4050 ####[facility] [address] [place], [address] Bilirubin [Mass/Vol] 0.64 mg/dL Normal 0.00-1.30 [facility] Comment on above: Performed By: #### L 506.1001, L501.9520, L100.0100, L500.4050 ####[facility] [address] [place], [address] BUN/CRE 13.3 RATIO Normal 10-20 [facility] Comment on above: Performed By: #### L 506.1001, L501.9520, L100.0100, L500.4050 ####[facility] [address] [place], [address] Calcium [Mass/Vol] 9.4 mg/dL Normal 7.6-11.0 [facility] Comment on above: Performed By: #### L 506.1001, L501.9520, L100.0100, L500.4050 ####[facility] [address] [place], [address] Chloride [Moles/Vol] 105 mmol/L Normal 98-108 [facility] Comment on above: Performed By: #### L 506.1001, L501.9520, L100.0100, L500.4050 ####[facility] [address] [place], [address] CO2 [Moles/Vol] 23.3 mmol/L Normal 21.0-32.0 [facility] Comment on above: Performed By: #### L 506.1001, L501.9520, L100.0100, L500.4050 ####[facility] [address] [place], [address] Creatinine [Mass/Vol] 0.99 mg/dL Normal 0.70-1.20 [facility] Comment on above: Performed By: #### L 506.1001, L501.9520, L100.0100, L500.4050 ####[facility] [address] [place], [address] GAP 11 Normal 5-15 [facility] Comment on above: Performed By: #### L 506.1001, L501.9520, L100.0100, L500.4050 ####[facility] [address] [place], [address] GFR/1.73 sq M.predicted among non-blacks MDRD (S/P/Bld) [Vol rate/Area] 75 mL/min/{1.73_m2} Normal >60 [facility] Comment on above: Result Comment: mL/m in/1.73m2 CKD-EPI Creatinine Equation (2020) Performed By: #### L 506.1001, L501.9520, L100.0100, L500.4050 ####[facility] [address] [place], [address] Globulin (S) [Mass/Vol] 2.8 g/dL Normal 2.2-4.2 [facility] Comment on above: Performed By: #### L 506.1001, L501.9520, L100.0100, L500.4050 ####[facility] [address] [place], [address] Glucose [Mass/Vol] 115 mg/dL High 70-99 [facility] Comment on above: Performed By: #### L 506.1001, L501.9520, L100.0100, L500.4050 ####[facility] [address] [place], [address] Potassium [Moles/Vol] 4.3 mmol/L Normal 3.3-5.1 [facility] Comment on above: Performed By: #### L 506.1001, L501.9520, L100.0100, L500.4050 ####[facility] [address] [place], [address] Sodium [Moles/Vol] 139 mmol/L Normal 133-145 [facility] Comment on above: Performed By: #### L 506.1001, L501.9520, L100.0100, L500.4050 ####[facility] [address] [place], [address] T PROT 7.1 g/dL Normal 5.9-8.4 [facility] Comment on above: Performed By: #### L 506.1001, L501.9520, L100.0100, L500.4050 ####[facility] [address] [place], [address] Urea nitrogen [Mass/Vol] 13 mg/dL Normal 4-19 [facility] Comment on above: Performed By: #### L 506.1001, L501.9520, L100.0100, L500.4050 ####[facility] [address] [place], [address] Eosinophil percentageOrdered By: Douglas Ball on 03-19-2025 Eosinophils/100 WBC (Bld) 2.4 % 0-5 [facility] Erythrocyte distribution wid th ratioOrdered By: Douglas Ball on 03-19-2025 Erythrocyte distribution width (RBC) [Ratio] 15.5 % High 11.6-14.6 [facility] Erythrocyte distribution wid th standard deviationOrdered By: Douglas Ball 03-19-2025 Erythrocyte distribution width (RBC) [Ratio] 51.8 fl High 35.1-43.9 [facility] Glomerular filtration rate ( GFR) estimation/1.73 sq m using serum, plasma, or whole bOrdered By: Douglas Ball on 03-19-2025 GFR/1.73 sq M.predicted among non-blacks MDRD (S/P/Bld) [Vol rate/Area] 75 mL/min/{1.73_m2} >60 [facility] Comment on above: mL/min/1.73m2 CKD-EP I Creatinine Equation (2020) Hematocrit Auto (Bld) [Volum e fraction]Ordered By: Douglas Ball on 03-19-2025 Hematocrit (Bld) [Volume fraction] 37.0 % Low 40-54 [facility] Hemoglobin measurementOrdere d By: Douglas Ball on 03-19-2025 Hemoglobin (Bld) [Mass/Vol] 12.2 g/dL Low 13.0-16.5 [facility] Immature granulocytes/100 WB C Auto (Bld)Ordered By: Douglas Ball on 03-19-2025 Immature granulocytes/100 WBC (Bld) 0.200 % 0.0-0.9 [facility] Comment on above: IG% - Immature Granu locytes (promyelocytes, myelocytes and metamyelocytes) > 1% indicates that a LEFT SHIFT is Present. Laboratory - Chemistry and C hemistry - challengeOrdered By: Douglas Ball on 03-19-2025 AST [Catalytic activity/Vol] 26 U/L <38 [facility] MCV (mean corpuscular volume ) determinationOrdered By: Douglas Ball 03-19-2025 MCV (RBC) [Entitic vol] 90.9 fL 80-94 [facility] Mean corpuscular hemoglobin (MCH) determinationOrdered By: Douglas Ball 03-19-2025 MCH (RBC) [Entitic mass] 30.0 pg 27.0-32.0 [facility] Mean corpuscular hemoglobin concentration (MCHC) determinationOrdered By: Douglas Ball 03-19-2025 MCHC (RBC) [Mass/Vol] 33.0 g/dL 32-36 [facility] Mean platelet volume determi nationOrdered By: Douglas Ball 03-19-2025 Platelet mean volume (Bld) [Entitic vol] 9.2 fL 6.2-12.0 [facility] Monocyte percentageOrdered B y: Douglas Ball on 03-19-2025 Monocytes/100 WBC (Bld) 5.0 % 0-10 [facility] Neutrophil percentageOrdered By: Douglas Ball on 03-19-2025 Neutrophils/100 WBC (Bld) 41.8 % Low 47-70 [facility] Nucleated red blood cell per centageOrdered By: Douglas Ball 03-19-2025 Nucleated RBC/100 WBC (Bld) [Ratio] 0 % 0-5 [facility] Platelet countOrdered By: Rob Ball on 03-19-2025 Platelets (Bld) [#/Vol] 180 10*3/uL 150-450 [facility] Potassium measurement (mass/ volume)Ordered By: Douglas Ball on 03-19-2025 Potassium (Unsp spec) [Mass/Vol] 4.3 mmol/L 3.3-5.1 [facility] RBC Auto (Bld) [#/Vol]Ordere d By: Douglas Ball on 03-19-2025 RBC (Bld) [#/Vol] 4.07 10*6/uL Low 4.6-6.2 [facility] Serum creatinine measurement (mass/volume)Ordered By: Douglas Ball on 03-19-2025 Creatinine [Mass/Vol] 0.99 mg/dL 0.70-1.20 [facility] Serum globulin measurementOr dered By: Douglas Ball 03-19-2025 Globulin (S) [Mass/Vol] 2.8 g/dL 2.2-4.2 [facility] Serum glucose measurement (m ass/volume)Ordered By: Douglas Ball on 03-19-2025 Glucose [Mass/Vol] 115 mg/dL High 70-99 [facility] Serum or plasma alanine tran otransferase (ALT) measurementOrdered By: Douglas Ball 03-19-2025 ALT [Catalytic activity/Vol] 17 U/L <47 [facility] Serum or plasma albumin bull urement (mass/volume)Ordered By: Douglas Ball 03-19-2025 Albumin [Mass/Vol] 4.2 g/dL 3.4-4.8 [facility] Serum or plasma albumin/glob ulin mass ratioOrdered By: Douglas Ball 03-19-2025 Albumin/Globulin [Mass ratio] 1.5 {ratio} 0.9-2.4 [facility] Serum or plasma alkaline angela sphatase measurementOrdered By: Douglas Ball 03-19-2025 ALP [Catalytic activity/Vol] 157 U/L High 40-129 [facility] Serum or plasma calcium bull urement (mass/volume)Ordered By: Douglas Ball 03-19-2025 Calcium [Mass/Vol] 9.4 mg/dL 7.6-11.0 [facility] Serum or plasma urea nitroge n measurement (mass/volume)Ordered By: Douglas Ball on 03-19-2025 Urea nitrogen [Mass/Vol] 13 mg/dL 4-19 [facility] Sodium levelOrdered By: Douglas Ball on 03-19-2025 Sodium [Moles/Vol] 139 mmol/L 133-145 [facility] TSH DL <= 0.005 mIU/L QnOrde red By: Douglas Ball on 03-19-2025 TSH Qn 1.880 uIU/mL 0.300-4.200 [facility] Thyroid Stim Hormone (TSH)on 03-19-2025 TSH 1.880 uIU/mL Normal 0.300-4.200 [facility] Comment on above: Performed By: #### L 506.1001, L501.9520, L100.0100, L500.4050 ####[facility] [address] [place], [place], [id number] Total proteinOrdered By: Douglas Ball on 03-19-2025 Protein [Mass/Vol] 7.1 g/dL 5.9-8.4 [facility] Vitamin D,25 Hydroxyon 03-19 Vitamin D 25-OH 27.0 ng/mL Low 30-100 [facility] Comment on above: Result Comment: Shawna min D Status Deficiency: <20 ng/mL (50nmol/L) Insufficiency: 20-30 ng/mL (50-75 nmol/L) Sufficiency: 30-100 ng/mL (75-250 nmol/L) Toxicity: >100 ng/mL (>250 nmol/L) Performed By: #### L 506.1001, L501.9520, L100.0100, L500.4050 ####[facility] [address] [place], [address] White blood cell (WBC) count Ordered By: Douglas Ball on 03-19-2025 WBC (Bld) [#/Vol] 9.3 10*3/uL 4.4-11.0 [facility] Consultation - Surgicalon Consultation - Surgical [facility] Medical Records Department [address] [place] [address] Consultation - Surgical 03/14/25 1256 MR#: [id number] Acct: [id number] Name: JENNIFER CUNNINGHAM Rep #: [id number] : 1940 84 From: Zoran Mojica MD PCP: Dr. Douglas Ball MD Status:REG ER Location: ED Assessment Plan Assessment/Plan (1) Mass of chest wall, [...] for Consultation: Right chest mass HPI Narrative: JENNIFER CUNNINGHAM, is a 84 M who presents to the emergency department earlier today with a 3 to 4-week history of a right chest mass. Patient states that this has become larger. He brought this to the attention of his son. He originally was scheduled to meet with his PCP next week however his son prompted him to be seen sooner and brought him to the emergency room. He was seen by the ER staff. No blood work or imaging were warranted. Surgical consult was obtained for evaluation as this was not felt to be an abscess as the patient thought. Obviously concern for malignancy is of high concern. [facility] Medical History (Updated 03/14/25 @ 12:[address] Kb Yañez MD) COPD (chronic obstructive pulmonary disease) Essential hypertension Hyperlipidemia Open wound of left thigh Sepsis Abscess or cellulitis of thigh 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 Non-rheumatic mitral regurgitation Pulmonary hypertension NSTEMI (non-ST elevated myocardial infarction) CHF (congestive heart failure) Home Medications ???Medication ???Instructions ???Recorded ???Last Taken ???Type tamsulosin 0.4 mg capsule 0.4 mg PO DAILY PROSTATE 11/30/20 03/13/25 History albuterol sulfate 2.5 mg/3 mL 2.5 mg inhalation Q6H PRN 09/23/21 Unknown History (0.083 %) solution for nebulization shortness of breath or wheezing aspirin 81 mg tablet,delayed 81 mg PO DAILY #1 TAB 09/23/21 Rx release furosemide 40 mg tablet 40 mg PO DAILY 04/04/22 03/13/25 H istory metoprolol succinate 100 mg 50 mg PO BID 09/28/22 03/14/25 His tory tablet,extended release 24 hr amlodipine 10 mg tablet 5 mg PO DAILY BP 12/21/23 03/13/25 History levothyroxine 125 mcg tablet 125 mcg PO DAILY 12/21/23 03/13/25 History atorvastatin 40 mg tablet 40 mg PO QHS for cholesterol #90 0 05/22/24 03/13/25 Rx TABLETS magnesium oxide 400 mg (241.3 mg 400 mg PO BID 03/14/25 03/13/25 Hi story magnesium) tablet potassium chloride 10 mEq 10 meq PO DAILY 03/14/25 03/13/25 History capsule,extended release Allergy/AdvReac Type Severity Reaction [...] surgery History of coronary artery bypass surgery ( 11/25/20) Social History Smoking Status: Former smoker alcohol intake: never substance use type: does not use caffeine: Yes Type: coffee Number of servings: 4 Physical Exam Const alert, oriented x3 and no apparent distress HEENT normocephalic Eyes PERRL Chest Chest Narrative: Examination of the right chest reveals about a 4 cm diameter raised exophytic mass. There is areas of purplish discoloration consistent with hemorrhage. The base of this is actually probably 7 to [...] (if applicable): CC: Dr. Douglas Ball MD Signed Normal [facility] Emergency Department Summary on 03-14-2025 Emergency Department Summary [facility] Medical Records Department [address] [place] [address] Emergency Department Summary 03/14/25 MR#: [id number] Acct: [id number] Name: JENNIFER CUNNINGHAM Rep #: [id number] : 1940 84 From: Kb Yañez MD PCP: Dr. Douglas Ball MD Status:REG ER Location: ED HPI History of Present Illness [...] any systemic symptoms or fever/chills. He states he was going to wait till he saw his doctor, he has a scheduled appointment in a couple weeks, but his son saw it and brought him to the ER to have it evaluated. [facility] Medical History (Updated 03/14/25 @ 12:[address] Kb Yañez MD) COPD (chronic obstructive pulmonary disease) Essential hypertension Hyperlipidemia Open wound of left thigh Sepsis Abscess or cellulitis of thigh 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 Non-rheumatic mitral regurgitation Pulmonary hypertension NSTEMI (non-ST elevated myocardial infarction) CHF (congestive heart failure) Home Medications ???Medication ???Instructions ???Recorded ???Last Taken ???Type tamsulosin 0.4 mg capsule 0.4 mg PO DAILY PROSTATE 11/30/20 03/13/25 History albuterol sulfate 2.5 mg/3 mL 2.5 mg inhalation Q6H PRN 09/23/21 Unknown History (0.083 %) solution for nebulization shortness of breath or wheezing aspirin 81 mg tablet,delayed 81 mg PO DAILY #1 TAB 09/23/21 Rx release furosemide 40 mg tablet 40 mg PO DAILY 04/04/22 03/13/25 H istory metoprolol succinate 100 mg 50 mg PO BID 09/28/22 03/14/25 His tory tablet,extended release 24 hr amlodipine 10 mg tablet 5 mg PO DAILY BP 12/21/23 03/13/25 History levothyroxine 125 mcg tablet 125 mcg PO DAILY 12/21/23 03/13/25 History atorvastatin 40 mg tablet 40 mg PO QHS for cholesterol #90 0 05/22/24 03/13/25 Rx TABLETS magnesium oxide 400 mg (241.3 mg 400 mg PO BID 03/14/25 03/13/25 Hi story magnesium) tablet potassium chloride 10 mEq 10 meq PO DAILY 03/14/25 03/13/25 History capsule,extended release Allergy/AdvReac Type Severity Reaction [...] surgery History of coronary artery bypass surgery ( 11/25/20) Social History Smoking Status: Former smoker alcohol [...] the base of it, there is no p (more content not included)... [facility] Immunohistochemical Stainson 03-14-2025 Immunohistochemical Stains Patient Age/Sex Location Account Attending Physician JENNIFER CUNNINGHAM 84/M ED [id number] Dr. Kb Yañez MD Specimen: [id number] Received: 03/14/25 Status: PHILIP Monroe Num: [id number] Spec Type: Lesion Subm Dr: Dr. Zoran Mojica MD HEADER OPERATION: Not noted PRE-OP DIAGNOSIS: Localized swelling, mass and lump, trunk, TISSUE SUBMITTED: A- Right chest mass biopsy MICROSCOPIC DIAGNOSIS A. 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 * No epidermal involvement observed in these sections (punch biopsy). * IHC for further classification is pending and the findings will be reported in an addendum. MICROSCOPIC DESCRIPTION Slides are reviewed. All matched controls reacted appropriately. These tests were developed and their performance characteristics determined by [facility]. They may not have been cleared or approved by the U.S. Food and Drug Administration. The FDA has determined that such clearance or approval is not necessary. The above immunohistochemical /dualISH markers are ordered and reviewed by the Pathologist. GROSS DESCRIPTION A. Received in formalin in a container labeled with the patient's name, date of , and with the accompanying paperwork indicating, skin punch and core biopsies of right chest mass are multiple peña-pink fragments of soft tissue measuring 2.5 x 0.6 x 0.2 cm in aggregate. The largest fragment (0.9 x 0.4 x 0.2 cm) appears to exhibit a white-farooq, rubbery portion of possible skin. The opposing presumed margin is inked green. The specimen is submitted entirely as follows:A1. Small fragmentsA2. Largest fragment with possible skin SMB 03-14-2025 CPT:41701, 51932, 45899d72 Patient Age/Sex Location Account Attending Physician JENNIFER CUNNINGHAM 84/M ED [id number] Dr. Kb Yañez MD ADDENDUM Addendum 4 Entered: 05/01/25-5 This addendum is to provide an updated final diagnosis, in view of the malignant melanoma excised from the right upper abdomen ([id number]): There are foci of poorly differentiated melanoma in the lesion from the right upper abdomen ([id number]) which more closely resemble the poorly differentiated cells of this chest lesion. This, along with the positive expression of SOX10, Vimentin, and patchy S100 by the tumor cells of this chest lesion support a diagnosis of metastatic malignant melanoma. The results of the molecular studies performed at [facility] are consistent with a malignant melanoma as well. Addendum Signed (signature on file) Dr. Monique Freeman MD 05/01/25 1105 Addendum 3 Entered: 04/16/25-910 This addendum is added to incorporate an outside pathology consultation report. The case was examined at [facility] by Dr. Mercer (#[id number]) and the following diagnosis was rendered. A. Right chest, mass, biopsy: Solid tumor mutation panel (NGS): BRAF p. V600E and a fully TERT promoter mutation, compatible with melanoma. NTRK fusion panel: Negative Please see complete above mentioned consultation report in EMR Addendum Signed (signature on file) Dr. Monique Freeman MD 04/17/25 1530 Addendum 2 Entered: 04/14/25-8536 This addendum is added to incorporate an outside pathology consultation report. The case was examined at [facility] (#[id number]) and the following diagnosis was rendered. [...] solid tumors. Sample and run controls are ----- (more content not included)... Normal [facility] Comment on above: Performed By: #### P PONCE ASHRAF ####[facility] [address] [place], [place], [address] Pathology Skin Biopsyon 02-15 PTH,Skin Biopsy SEE PATHOLOGY REPORT Normal [facility] Comment on above: Order Comment: Tissu e/Specimen Source? skin punch and core biopsies of right chest mass Send Specimen For (Specify): Studies @ [facility] Lab:Routine Date of Procedure: 03/14/25 Reason specimen being sent to pathology (Hx/Problems/Dx): right chest mass (exophytic) Time of Procedure: 1200 Type of procedure performed: skin punch and core biopsies Result Comment: Spec imen submitted to Anatomical Pathology Department for testing. Performed By: #### L 350.1900 #### [facility] [address] [place], [place], [address] Surgery Specimen Level Alma Rosa 03-14-2025 Surgery Specimen Level IV Patient Age/Sex Location Account Attending Physician JENNIFER CUNNINGHAM 84/M ED [id number] Dr. Kb Yañez MD Specimen: [id number] Received: 03/14/25 Status: PHILIP Monroe Num: [id number] Spec Type: Lesion Subm Dr: Dr. Zoran Mojica MD HEADER OPERATION: Not noted PRE-OP DIAGNOSIS: Localized swelling, mass and lump, trunk, TISSUE SUBMITTED: A- Right chest mass biopsy MICROSCOPIC DIAGNOSIS A. 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 * No epidermal involvement observed in these sections (punch biopsy). * IHC for further classification is pending and the findings will be reported in an addendum. MICROSCOPIC DESCRIPTION Slides are reviewed. GROSS DESCRIPTION A. Received in formalin in a container labeled with the patient's name, date of , and with the accompanying paperwork indicating, skin punch and core biopsies of right chest mass are multiple peña-pink fragments of soft tissue measuring 2.5 x 0.6 x 0.2 cm in aggregate. The largest fragment (0.9 x 0.4 x 0.2 cm) appears to exhibit a white-farooq, rubbery portion of possible skin. The opposing presumed margin is inked green. The specimen is submitted entirely as follows:A1. Small fragmentsA2. Largest fragment with possible skin SMB 5-30-2025 CPT:86384, 71646, 03158k4 Patient Age/Sex Location Account Attending Physician JENNIFER CUNNINGHAM 84/M ED [id number] Dr. Kb Yañez MD Signed (signatur e on file) Dr. Monique Freeman MD 03/20/25 0953 Normal [facility] Comment on above: Performed By: #### PONCE MCMILLAN ####[facility] [address] [place], [address] CBC W/Diff, Automatedon 12-0 SMEAR COMMENT COMMENT Normal [facility] Comment on above: Result Comment: LYMP HOCYTOSIS. Performed By: #### L 501.9520, L506.1000, L100.0100, L500.4050 ####[facility] [address] [place], [address] Comprehensive Metabolic Prof ilon 09-18-2024 Albumin [Mass/Vol] 4.1 g/dL Normal 3.2-5.0 [facility] Comment on above: Performed By: #### L 501.9520, L506.1000, L100.0100, L500.4050 ####[facility] [address] [place], [address] Albumin/Globulin [Mass ratio] 1.4 {ratio} Normal 0.9-2.4 [facility] Comment on above: Performed By: #### L 501.9520, L506.1000, L100.0100, L500.4050 ####[facility] [address] [place], [address] ALK P 125 U/L High 45-117 [facility] Comment on above: Performed By: #### L 501.9520, L506.1000, L100.0100, L500.4050 ####[facility] [address] [place], [address] ALT [Catalytic activity/Vol] 24 U/L Normal 16-61 [facility] Comment on above: Performed By: #### L 501.9520, L506.1000, L100.0100, L500.4050 ####[facility] [address] [place], [address] AST [Catalytic activity/Vol] 20 U/L Normal 15-37 [facility] Comment on above: Performed By: #### L 501.9520, L506.1000, L100.0100, L500.4050 ####[facility] [address] [place], [address] Bilirubin [Mass/Vol] 0.80 mg/dL Normal 0.20-1.00 [facility] Comment on above: Result Comment: For patients on eltrombopag therapy, use of Dimension Eleanor TBIL is not recommended. Performed By: #### L 501.9520, L506.1000, L100.0100, L500.4050 ####[facility] [address] [place], [address] BUN/CRE 16.5 RATIO Normal 10-20 [facility] Comment on above: Performed By: #### L 501.9520, L506.1000, L100.0100, L500.4050 ####[facility] [address] [place], [address] CA,Total 9.1 mg/dL Normal 8.5-10.1 [facility] Comment on above: Performed By: #### L 501.9520, L506.1000, L100.0100, L500.4050 ####[facility] [address] [place], [address] Chloride [Moles/Vol] 107 mmol/L Normal 98-107 [facility] Comment on above: Performed By: #### L 501.9520, L506.1000, L100.0100, L500.4050 ####[facility] [address] [place], [address] CO2 [Moles/Vol] 27.0 mmol/L Normal 21.0-32.0 [facility] Comment on above: Performed By: #### L 501.9520, L506.1000, L100.0100, L500.4050 ####[facility] [address], [address] Creatinine [Mass/Vol] 1.15 mg/dL Normal 0.70-1.30 [facility] Comment on above: Result Comment: The validity of the calculated GFR GFRAA in patients over 70 years has not been determined. Clinical correlation is essential. Performed By: #### L 501.9520, L506.1000, L100.0100, L500.4050 ####[facility] [address] [place], [address] EST GFR - AA 78 mL/min Normal >60 [facility] Comment on above: Result Comment: Afri can Citizen [place] GFR Calc Performed By: #### L 501.9520, L506.1000, L100.0100, L500.4050 ####[facility] [address] [place], [address] GAP 6 Normal 5-15 [facility] Comment on above: Performed By: #### L 501.9520, L506.1000, L100.0100, L500.4050 ####[facility] [address] [place], [address] GFR/1.73 sq M.predicted among non-blacks MDRD (S/P/Bld) [Vol rate/Area] 64 mL/min/{1.73_m2} Normal >60 [facility] Comment on above: Result Comment: Non- GFR Calc Performed By: #### L 501.9520, L506.1000, L100.0100, L500.4050 ####[facility] [address] [place], [address] Globulin (S) [Mass/Vol] 3.0 g/dL Normal 2.2-4.2 [facility] Comment on above: Performed By: #### L 501.9520, L506.1000, L100.0100, L500.4050 ####[facility] [address] [place], [address] Glucose [Mass/Vol] 109 mg/dL High 74-106 [facility] Comment on above: Result Comment: Fast ing Glucose result from 100 to 125 mg/dL suggests IMPAIRED HOMEOSTASIS per A.D.A. criteria. Performed By: #### L 501.9520, L506.1000, L100.0100, L500.4050 ####[facility] [address] [place], [address] Potassium [Moles/Vol] 4.0 mmol/L Normal 3.5-5.1 [facility] Comment on above: Performed By: #### L 501.9520, L506.1000, L100.0100, L500.4050 ####[facility] [address] [place], [address] Sodium [Moles/Vol] 140 mmol/L Normal 136-145 [facility] Comment on above: Performed By: #### L 501.9520, L506.1000, L100.0100, L500.4050 ####[facility] [address] [place], [address] T PROT 7.1 g/dL Normal 6.4-8.2 [facility] Comment on above: Performed By: #### L 501.9520, L506.1000, L100.0100, L500.4050 ####[facility] [address] [place], [address] Urea nitrogen [Mass/Vol] 19 mg/dL High 7-18 [facility] Comment on above: Performed By: #### L 501.9520, L506.1000, L100.0100, L500.4050 ####[facility] [address] [place], [address] Thyroid Stim Hormone (TSH)on 09-18-2024 TSH 1.940 uIU/mL Normal 0.358-3.740 [facility] Comment on above: Performed By: #### L 501.9520, L506.1000, L100.0100, L500.4050 ####[facility] [address], [address] Vitamin D,25 Hydroxyon 09-18 Vitamin D 25-OH 31.2 ng/mL Normal [facility] Comment on above: Result Comment: Shawna min D 25(OH) Status Range Deficiency <20 ng/mL (50nmol/L) Insufficiency 20 - 30 ng/mL (50 - 75 nmol/L) Sufficiency 30 - 100 ng/mL (75 - 250 nmol/L) Toxicity >100 ng/mL (>250 nmol/L) Performed By: #### L 501.9500, L506.1000, L100.0100, L500.4050 ####[facility] [address] [place], [address] Cardiology Visit Reporton Cardiology Visit Report [facility] [address] [place], [place] [address] OFFICE VISIT Date of Service: 07/11/24 MR#: [id number] Acct: [id number] Name: JENNIFER CUNNINGHAM Rep #: [id number] : 1940 Provider: Dr. Shay Negrete MD Age/Sex: 83/M Location[place] [facility] Status: Signed HPI HPI History of Present Illness Details: This is an 83-year old white male who presents today for an outpatient cardiovascular follow-up of a history of underlying coronary artery disease status post carotid bypass surgery in November 2020 with a BLEVINS to the LAD and the CY and SVG tandem graft to the intermedius radius. She also has a history of hypertension, hyperlipidemia and mild obesity. He returns for routine follow-up visit. He denies chest, arm, jaw, or neck discomfort. He denies palpitations. He states a little bilateral lower extremity edema that improves with PRN Lasix. He denies claudication. He states shortness of breath with activity such as heavy lifting and walking uphill. This is intermittent and not worsening. He denies shortness of breath at rest, orthopnea, or PND. He denies chronic cough. He denies significant, sudden weight gain. He states seldom lightheadedness with quick position changes. He denies dizziness, near-syncope, or syncope. He denies blood in urine, blood in stool, or epistaxis. He denies fever or chills. He denies myalgia. He denies fatigue. His exercise level has remained stable via woodworking and daily walks. His blood pressure from home has been 120s/60s-70s with heart rate 70-80s. Intake Vital Signs 05/22/23 13:09 12/21/23 10:34 07/11/24 10:14 Height 5 ft 8 in 5 ft 8 in 5 ft 8 in Weight: 188 lb 179 lb BMI 28.5 27.2 BP 137/68 H 128/59 H Blood Pressure Location Lt brachial Lt brachial Position Sitting Sitting Respiration 16 16 Pulse 82 77 Pulse Source NIBP Monitor Intake Visit Reasons: 1 y fu PREV PFM PT Legal Adviser Required: No Accompanied by: Self Is patient in pain?: No Allergies amoxicillin (From Augmentin) Allergy (Verified 07/11/24 10:19) Rash clavulanic acid (From Augmentin) Allergy (Verified 07/11/24 10:19) Rash Opioids - Morphine Analogues Adverse Reaction (Verified 07/11/24 10:19) Low blood pressure Medications ???Medication ???Instructions ???Recorded ???Confirmed ???Type tamsulosin 0.4 mg capsule 0.4 mg PO DAILY PROSTATE 11/30/20 07/11/24 History potassium chloride 10 mEq 10 meq PO DAILY 03/25/21 07/11/24 History tablet,extended release albuterol sulfate 2.5 mg/3 mL 2.5 mg inhalation Q6H PRN 09/23/21 07/11/24 History (0.083 %) solution for nebulization aspirin 81 mg tablet,delayed 81 mg PO DAILY #1 TAB 09/23/21 07/11/24 Rx release magnesium oxide 400 mg PO BID 09/23/21 07/11/24 History furosemide 40 mg tablet 40 mg PO DAILY 04/04/22 07/11/24 History metoprolol succinate 100 mg 50 mg PO BID 09/28/22 07/11/24 History tablet,extended release 24 hr amlodipine 10 mg tablet 5 mg PO DAILY BP 12/21/23 07/11/24 History levothyroxine 125 mcg tablet 125 mcg PO DAILY 12/21/23 07/11/24 History atorvastatin 40 mg tablet 40 mg PO QHS for cholesterol #90 05/22/24 07/11/24 Rx TABLETS Have you fallen in the past year?: No PFSH Medical History COPD (chronic obstructive pulmonary disease) Essential hypertension Hyperlipidemia Open wound of left thigh Sepsis Abscess or cellulitis of thigh 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 Non-rheumatic mitral regurgitation Pulmonary hypertension NSTEMI (non-ST elevated myocardial infarction) CHF (congestive heart failure) Surgical History History of external ear surgery History of coronary artery bypass surgery ( 11/25/20) Family History Grandmother CAD (coronary artery disease) Father CAD (coronary artery disease) Social History Smoking Status: Former smoker alcohol intake: never substance use type: does not use caffeine: Yes Type: coffee Number of servings: 4 ROS Const Const: Negative for fatigue, weakness, headache(s), daytime sleepiness or difficulty sleeping ENT ENT: Negative for headache(s), dizziness or Nosebleed/epistaxis Cardio Chest Pain: No Palpitations: No Edema: Bilateral (BLE at times) Resp Respiratory: Positive for SOB with activity; Negative for SOB at rest, SOB orthopnea SOB lying down or Cough GI GI: Negative nausea, vomiting or heartburn Neuro Neuro: Negative for dizziness, lightheadedness, near syncope, headache(s) or weakness Endo Endo: Negative for fatigue Cardiology Exam Const Appearance: cooperative, hea (more content not included)... Normal [facility] Absolute lymphocyte countOrd ered By: Douglas Ball on 09-11-2023 Lymphocytes Auto (Unsp spec) [#/Vol] 6.99 10*3/uL 0.83-4.51 [facility] Basophil percentageOrdered B y: Douglas Ball on 09-11-2023 Basophils/100 WBC (Bld) 0.6 % 0-1 [facility] Bilirubin [Mass/Vol] 0.80 mg/dL 0.20-1.00 [facility] Comment on above: For patients on eltr ombopag therapy, use of Dimension Eleanor TBIL is not recommended. Chloride [Moles/Vol] 106 mmol/L 98-107 [facility] Eosinophils/100 WBC (Bld) 3.5 % 0-5 [facility] Glucose [Mass/Vol] 96 mg/dL 74-106 [facility] Neutrophils (Bld) [#/Vol] 3.5 10*3/uL 2.0-7.7 [facility] Neutrophils/100 WBC (Bld) 29.7 % 47-70 [facility] Potassium [Moles/Vol] 4.0 mmol/L 3.5-5.1 [facility] Protein [Mass/Vol] 7.7 g/dL 6.4-8.2 [facility] Sodium [Moles/Vol] 141 mmol/L 136-145 [facility] WBC (Bld) [#/Vol] 11.7 10*3/uL 4.4-11.0 [facility] Blood erythrocytes count (nu mber/volume)Ordered By: Douglas Ball on 09-11-2023 RBC (Bld) [#/Vol] 4.74 10*6/uL 4.6-6.2 [facility] Blood hemoglobin measurement (mass/volume)Ordered By: Douglas Ball on 09-11-2023 Hemoglobin (Bld) [Mass/Vol] 15.0 g/dL 13.0-16.5 [facility] Blood lymphocytes/100 leukoc ytesOrdered By: Douglas Ball on 09-11-2023 Lymphocytes/100 WBC (Bld) 59.6 % 19-41 [facility] Blood monocytes/100 leukocyt esOrdered By: Douglas Ball on 09-11-2023 Monocytes/100 WBC (Bld) 6.3 % 0-10 [facility] Blood platelet mean volumeOr dered By: Douglas Ball on 09-11-2023 Platelet mean volume (Bld) [Entitic vol] 9.4 fL 6.2-12.0 [facility] Determination of erythrocyte mean corpuscular volume (MCV)Ordered By: Douglas Ball on 09-11-2023 MCV (RBC) [Entitic vol] 96.0 fL 80-94 [facility] Hematocrit Auto (Bld) [Volum e fraction][facility]: [facility] on 09-11-2023 Hematocrit (Bld) [Volume fraction] 45.5 % 40-54 [facility] - Chemistry and C hemistry - challengeOrdered By: [facility] on 09-11-2023 ALP [Catalytic activity/Vol] 110 U/L 45-117 [facility] ALT [Catalytic activity/Vol] 26 U/L 16-61 [facility] CO2 [Moles/Vol] 26.0 mmol/L 21.0-32.0 [facility] Globulin (S) [Mass/Vol] 3.3 g/dL 2.2-4.2 [facility] Urea nitrogen/Creatinine [Mass ratio] 10.3 mg/mg 10-20 [facility] Laboratory - Hematology and Cell countsOrdered By: [facility] on 09-11-2023 Erythrocyte distribution width (RBC) [Entitic vol] 49.3 fL 35.1-43.9 [facility] Erythrocyte distribution width (RBC) [Ratio] 14.1 % 11.6-14.6 [facility] Immature granulocytes/100 WBC (Bld) 0.300 % 0.0-0.9 [facility] Comment on above: IG% - Immature Granu locytes (promyelocytes, myelocytes and metamyelocytes) > 1% indicates that a LEFT SHIFT is Present. MCH (RBC) [Entitic mass] 31.6 pg 27.0-32.0 [facility] Nucleated RBC/100 WBC (Bld) [Ratio] 0 % 0-5 [facility] MCHC Auto (RBC) [Mass/Vol]Or dered By: [facility] MCHC (RBC) [Mass/Vol] 33.0 g/dL 32-36 [facility] No Panel InformationOrdered By: Douglas Ball on 09-11-2023 Estimated GFR (MDRD) Amer 85 mL/min >60 [facility] Comment on above: GFR Calc Estimated GFR (MDRD) Non-Af Amer 70 mL/min >60 [facility] Comment on above: Non- GFR Calc Reactive Lymphocytes 1+ [facility] Thyroid Stimulating Hormone (TSH) 4.97 uIU/mL 0.358-3.74 [facility] Vitamin D 25-Hydroxy 34.4 ng/mL [facility] Comment on above: Vitamin D 25(OH) Sta tus Range Deficiency <20 ng/mL (50nmol/L) Insufficiency 20 - 30 ng/mL (50 - 75 nmol/L) Sufficiency 30 - 100 ng/mL (75 - 250 nmol/L) Toxicity >100 ng/mL (>250 nmol/L) Platelets bldOrdered By: Douglas Ball on 09-11-2023 Platelets (Bld) [#/Vol] 196 10*3/uL 150-450 [facility] Serum or plasma albumin bull urement (mass/volume)Ordered By: Douglas Ball on 09-11-2023 Albumin [Mass/Vol] 4.4 g/dL 3.2-5.0 [facility] Serum or plasma albumin/glob ulin mass ratioOrdered By: Douglas Ball on 09-11-2023 Albumin/Globulin [Mass ratio] 1.3 {ratio} 0.9-2.4 [facility] Serum or plasma calcium bull urement (mass/volume)Ordered By: Douglas Ball on 09-11-2023 Calcium [Mass/Vol] 9.1 mg/dL 8.5-10.1 [facility] Serum or plasma creatinine m easurement (mass/volume)Ordered By: Douglas Ball on 09-11-2023 Creatinine [Mass/Vol] 1.07 mg/dL 0.70-1.30 [facility] Comment on above: The validity of the calculated GFR & GFRAA in patients over 70 years has not been determined. Clinical correlation is essential. Serum or plasma urea nitroge n measurement (mass/volume)Ordered By: Douglas Ball on 09-11-2023 Urea nitrogen [Mass/Vol] 11 mg/dL 7-18 [facility] Thin prep Papanicolaou smear with manual screeningOrdered By: Douglas Ball on 09-11-2023 Thin prep Papanicolaou smear with manual screening 19 U/L 15-37 [facility] Thin prep Papanicolaou smear with manual screening 9 5-15 [facility] Absolute lymphocyte countOrd ered By: Douglas Ball on 03-15-2023 Lymphocytes Auto (Unsp spec) [#/Vol] 3.22 10*3/uL 0.83-4.51 [facility] Basophil percentageOrdered B y: Douglas Ball on 03-15-2023 Basophils/100 WBC (Bld) 0.4 % 0-1 [facility] Bilirubin [Mass/Vol] 0.70 mg/dL 0.20-1.00 [facility] Comment on above: For patients on eltr ombopag therapy, use of Dimension Eleanor TBIL is not recommended. Chloride [Moles/Vol] 104 mmol/L 98-107 [facility] Eosinophils/100 WBC (Bld) 3.6 % 0-5 [facility] Glucose [Mass/Vol] 100 mg/dL 74-106 [facility] Comment on above: Fasting Glucose resu lt from 100 to 125 mg/dL suggests IMPAIRED HOMEOSTASIS per A.D.A. criteria. Neutrophils (Bld) [#/Vol] 5.8 10*3/uL 2.0-7.7 [facility] Neutrophils/100 WBC (Bld) 56.8 % 47-70 [facility] Potassium [Moles/Vol] 4.4 mmol/L 3.5-5.1 [facility] Protein [Mass/Vol] 7.3 g/dL 6.4-8.2 [facility] Sodium [Moles/Vol] 138 mmol/L 136-145 [facility] WBC (Bld) [#/Vol] 10.3 10*3/uL 4.4-11.0 [facility] Blood erythrocytes count (nu mber/volume)Ordered By: Douglas Ball on 03-15-2023 RBC (Bld) [#/Vol] 4.17 10*6/uL 4.6-6.2 [facility] Blood hemoglobin measurement (mass/volume)Ordered By: Douglas Ball on 03-15-2023 Hemoglobin (Bld) [Mass/Vol] 12.9 g/dL 13.0-16.5 [facility] Blood lymphocytes/100 leukoc ytesOrdered By: Douglas Ball on 03-15-2023 Lymphocytes/100 WBC (Bld) 31.4 % 19-41 [facility] Blood monocytes/100 leukocyt esOrdered By: Douglas Ball on 03-15-2023 Monocytes/100 WBC (Bld) 7.5 % 0-10 [facility] Blood platelet mean volumeOr dered By: Douglas Ball on 03-15-2023 Platelet mean volume (Bld) [Entitic vol] 9.3 fL 6.2-12.0 [facility] Determination of erythrocyte mean corpuscular volume (MCV)Ordered By: Douglas Ball on 03-15-2023 MCV (RBC) [Entitic vol] 94.0 fL 80-94 [facility] Hematocrit Auto (Bld) [Volum e fraction]Ordered By: [facility] on 03-15-2023 Hematocrit (Bld) [Volume fraction] 39.2 % 40-54 [facility] Laboratory - Chemistry and C hemistry - challengeOrdered By: [facility] 03-15-2023 ALP [Catalytic activity/Vol] 130 U/L 45-117 [facility] ALT [Catalytic activity/Vol] 22 U/L 16-61 [facility] CO2 [Moles/Vol] 26.0 mmol/L 21.0-32.0 [facility] Globulin (S) [Mass/Vol] 3.6 g/dL 2.2-4.2 [facility] Urea nitrogen/Creatinine [Mass ratio] 10.1 mg/mg 10-20 [facility] Laboratory - Hematology and Cell countsOrdered By: Douglas Ball 03-15-2023 Erythrocyte distribution width (RBC) [Entitic vol] 48.7 fL 35.1-43.9 [facility] Erythrocyte distribution width (RBC) [Ratio] 14.2 % 11.6-14.6 [facility] Immature granulocytes/100 WBC (Bld) 0.300 % 0.0-0.9 [facility] Comment on above: IG% - Immature Granu locytes (promyelocytes, myelocytes and metamyelocytes) > 1% indicates that a LEFT SHIFT is Present. MCH (RBC) [Entitic mass] 30.9 pg 27.0-32.0 [facility] Nucleated RBC/100 WBC (Bld) [Ratio] 0 % 0-5 [facility] MCHC Auto (RBC) [Mass/Vol]Or dered By: Douglas Ball on 03-15-2023 MCHC (RBC) [Mass/Vol] 32.9 g/dL 32-36 [facility] No Panel InformationOrdered By: Douglas Ball on 03-15-2023 Estimated GFR (MDRD) Amer 75 mL/min >60 [facility] Comment on above: GFR Calc Estimated GFR (MDRD) Non-Af Amer 62 mL/min >60 [facility] Comment on above: Non- GFR Calc Thyroid Stimulating Hormone (TSH) 1.36 uIU/mL 0.358-3.74 [facility] Vitamin D 25-Hydroxy 35.0 ng/mL [facility] Comment on above: Vitamin D 25(OH) Sta tus Range Deficiency <20 ng/mL (50nmol/L) Insufficiency 20 - 30 ng/mL (50 - 75 nmol/L) Sufficiency 30 - 100 ng/mL (75 - 250 nmol/L) Toxicity >100 ng/mL (>250 nmol/L) Platelets bldOrdered By: Douglas Ball on 03-15-2023 Platelets (Bld) [#/Vol] 193 10*3/uL 150-450 [facility] Serum or plasma albumin bull urement (mass/volume)Ordered By: Douglas Ball 03-15-2023 Albumin [Mass/Vol] 3.7 g/dL 3.2-5.0 [facility] Serum or plasma albumin/glob ulin mass ratioOrdered By: Douglas Ball 03-15-2023 Albumin/Globulin [Mass ratio] 1.0 {ratio} 0.9-2.4 [facility] Serum or plasma calcium bull urement (mass/volume)Ordered By: Douglas Ball on 03-15-2023 Calcium [Mass/Vol] 9.4 mg/dL 8.5-10.1 [facility] Serum or plasma creatinine m easurement (mass/volume)Ordered By: Douglas Ball 03-15-2023 Creatinine [Mass/Vol] 1.19 mg/dL 0.70-1.30 [facility] Comment on above: The validity of the calculated GFR & GFRAA in patients over 70 years has not been determined. Clinical correlation is essential. Serum or plasma urea nitroge n measurement (mass/volume)Ordered By: Douglas Ball on 03-15-2023 Urea nitrogen [Mass/Vol] 12 mg/dL 7-18 [facility] Thin prep Papanicolaou smear with manual screeningOrdered By: Douglas Ball on 03-15-2023 Thin prep Papanicolaou smear with manual screening 14 U/L 15-37 [facility] Thin prep Papanicolaou smear with manual screening 8 5-15 [facility] Absolute lymphocyte counton 03-10-2022 Lymphocytes Auto (Unsp spec) [#/Vol] 2.98 10*3/uL 0.83-4.51 [facility] Work Phone: Basophil percentageon 2021 Basophils/100 WBC (Bld) 0.5 % 0-1 [facility] Work Phone: Bilirubin [Mass/Vol] 0.80 mg/dL 0.20-1.00 [facility] Work Phone: Comment on above: For patients on eltr ombopag therapy, use of Dimension Eleanor TBIL is not recommended. Chloride [Moles/Vol] 104 mmol/L 98-107 [facility] Work Phone: Eosinophils/100 WBC (Bld) 4.3 % 0-5 [facility] Work Phone: Glucose [Mass/Vol] 135 mg/dL 74-106 [facility] Work Phone: Comment on above: Fasting Glucose resu lt greater than or equal to 126 mg/dL suggests DIABETES MELLITUS per A.D.A. criteria. Neutrophils (Bld) [#/Vol] 3.8 10*3/uL 2.0-7.7 [facility] Work Phone: Neutrophils/100 WBC (Bld) 48.3 % 47-70 [facility] Work Phone: Potassium [Moles/Vol] 3.8 mmol/L 3.5-5.1 [facility] Work Phone: Protein [Mass/Vol] 7.3 g/dL 6.4-8.2 [facility] Work Phone: Sodium [Moles/Vol] 139 mmol/L 136-145 [facility] Work Phone: WBC (Bld) [#/Vol] 7.9 10*3/uL 4.4-11.0 [facility] Work Phone: Blood erythrocytes count (nu mber/volume)on 03-10-2022 RBC (Bld) [#/Vol] 4.38 10*6/uL 4.6-6.2 [facility]: Blood hemoglobin measurement (mass/volume)on 03-10-2022 Hemoglobin (Bld) [Mass/Vol] 13.6 g/dL 13.0-16.5 [facility] Work Phone: Blood lymphocytes/100 leukoc yteson 03-10-2022 Lymphocytes/100 WBC (Bld) 37.7 % 19-41 [facility] Work Phone: Blood monocytes/100 leukocyt eson 03-10-2022 Monocytes/100 WBC (Bld) 8.9 % 0-10 [facility] Work Phone: Blood platelet mean volumeon 03-10-2022 Platelet mean volume (Bld) [Entitic vol] 8.8 fL 6.2-12.0 [facility] Work Phone: Determination of erythrocyte mean corpuscular volume (MCV)on 03-10-2022 MCV (RBC) [Entitic vol] 94.1 fL 80-94 [facility] Work Phone: Hematocrit Auto (Bld) [Volum e fraction]on 03-10-2022 Hematocrit (Bld) [Volume fraction] 41.2 % 40-54 [facility] Work Phone: Laboratory - Chemistry and C hemistry - challengeon 03-10-2022 ALP [Catalytic activity/Vol] 110 U/L 45-117 [facility] Work Phone: ALT [Catalytic activity/Vol] 29 U/L 16-61 [facility] Work Phone: CO2 [Moles/Vol] 27.0 mmol/L 21.0-32.0 [facility] Work Phone: Globulin (S) [Mass/Vol] 3.2 g/dL 2.2-4.2 [facility] Work Phone: Urea nitrogen/Creatinine [Mass ratio] 12.1 mg/mg 10-20 [facility] Work Phone: Laboratory - Hematology and Cell countson 03-10-2022 Erythrocyte distribution width (RBC) [Entitic vol] 49.2 fL 35.1-43.9 [facility] Work Phone: Erythrocyte distribution width (RBC) [Ratio] 14.3 % 11.6-14.6 [facility] Work Phone: Immature granulocytes/100 WBC (Bld) 0.300 % 0.0-0.9 [facility] Work Phone: Comment on above: IG% - Immature Granu locytes (promyelocytes, myelocytes and metamyelocytes) > 1% indicates that a LEFT SHIFT is Present. MCH (RBC) [Entitic mass] 31.1 pg 27.0-32.0 [facility] Work Phone: Nucleated RBC/100 WBC (Bld) [Ratio] 0 % 0-5 [facility] Work Phone: MCHC Auto (RBC) [Mass/Vol]on 03-10-2022 MCHC (RBC) [Mass/Vol] 33.0 g/dL 32-36 [facility] Work Phone: No Panel Informationon 03-10 Estimated GFR (MDRD) Amer 67 mL/min >60 [facility] Work Phone: Comment on above: GFR Calc Estimated GFR (MDRD) Non-Af Amer 55 mL/min >60 [facility] Work Phone: Comment on above: Non- GFR Calc Thyroid Stimulating Hormone (TSH) 1.71 uIU/mL 0.358-3.74 [facility] Work Phone: Vitamin D 25-Hydroxy 32.9 ng/mL [facility] Work Phone: Comment on above: Vitamin D 25(OH) Sta tus Range Deficiency <20 ng/mL (50nmol/L) Insufficiency 20 - 30 ng/mL (50 - 75 nmol/L) Sufficiency 30 - 100 ng/mL (75 - 250 nmol/L) Toxicity >100 ng/mL (>250 nmol/L) Platelets bldon 03-10-2022 Platelets (Bld) [#/Vol] 195 10*3/uL 150-450 [facility] Work Phone: Serum or plasma albumin bull urement (mass/volume)on 03-10-2022 Albumin [Mass/Vol] 4.1 g/dL 3.2-5.0 [facility] Work Phone: Serum or plasma albumin/glob ulin mass ratioon 03-10-2022 Albumin/Globulin [Mass ratio] 1.3 {ratio} 0.9-2.4 [facility] Work Phone: Serum or plasma calcium bull urement (mass/volume)on 03-10-2022 Calcium [Mass/Vol] 9.0 mg/dL 8.5-10.1 [facility] Work Phone: Serum or plasma creatinine m easurement (mass/volume)on 03-10-2022 Creatinine [Mass/Vol] 1.32 mg/dL 0.70-1.30 [facility] Work Phone: Comment on above: The validity of the calculated GFR & GFRAA in patients over 70 years has not been determined. Clinical correlation is essential. Serum or plasma urea nitroge n measurement (mass/volume)on 03-10-2022 Urea nitrogen [Mass/Vol] 16 mg/dL 7-18 [facility] Work Phone: Thin prep Papanicolaou smear with manual screeningon 03-10-2022 Thin prep Papanicolaou smear with manual screening 20 U/L 15-37 [facility] Work Phone: Thin prep Papanicolaou smear with manual screening 8 5-15 [facility] Work Phone: Arielle 12-30-2020 SCOTT Telephone (TYLER) ---- JENNIFER IBRAHIM ([id number]) 1940 M Date Time Provider Department 12/30/20 ANTONIETA ORTEZ During your visit today, we recorded the following information about you: Antonieta Ortez RN APRN.KIERA 12/30/2020 8:33 AM Signed I attempted to call the patient regarding an EGD this January 04. I left a voice mail asking him to call in. Order placed. Patient will need to hold Plavix until the procedure. Lexi Rios LPN 12/30/2020 10:47 AM Signed Was able to contact patient and he is currently admitted to [facility] for an infection. He states that he was told the X-ray looks good and is not having any trouble swallowing food so does not want to proceed with EGD. Antonieta Ortez RN APRN.KIERA 12/30/2020 11:18 AM Signed Noted. Antonieta Ortez RN APRN.[employer] Allergies As of Date: 12/30/2020 Noted Allergy Reaction OXYCODONE 12/16/2020 5 - Intolerance Comments: anxious feeling Date Reviewed: 12/16/2020 Reviewed by: Lexi Rios LPN - Fully Assessed Reason for Visit: Procedure [88] Cmt: to set up EGD Primary Visit Diagnosis:Esophagea l dysphagia [R13.10] Order(s):EGD [[id number]] Order #: [id number] FUTURE Prescriptions as of 12/30/2020 Sig: AMIODARONE 200 MG TABLET Take 200 mg by mouth. ATORVASTATIN 40 MG TABLET Take 40 mg by mouth. ASPIRIN 81 MG CHEWABLE TABLET Take 81 mg by mouth. METOPROLOL TARTRATE 25 MG TAB* Take 12.5 mg by mouth. FUROSEMIDE 20 MG TABLET Take by mouth. TAMSULOSIN 0.4 MG CAPSULE Take 0.4 mg by mouth. LEVOTHYROXINE 100 MCG TABLET Take 100 mcg by mouth. CLOPIDOGREL 75 MG TABLET Take 75 mg by mouth. MAGNESIUM 400 MG ( MAGNESIU* Take 400 mg by mouth. AMLODIPINE 10 MG TABLET Take 10 mg by mouth once chase* PANTOPRAZOLE 40 MG TABLET,DEL* Take 1 tablet by mouth daily * Patient not taking: Reported on 12/16/2020 Problem List As Of Date: 12/30/2020 (None) Encounter Status:Closed by ANTONIETA ORTEZ CNP on 12/30/20 [facility] CNOVon 12-16-2020 CNOV Office Visit ([facility]) ---- JENNIFER IBRAHIM ([id number]) 1940 M Date Time Provider Department 12/16/20 9:20 AM ANTONIETA ORTEZ During your visit today, we recorded the following information about you: Pulse Blood pressure Weight Height 92/minute 154/64 83.9 kg 1.67 m Antonieta Ortez RN APRN.KIERA 12/18/2020 2:49 PM Signed Jennifer Ibrahim a 80 year old male who is a consultation requested by Mariya Marroquin PA-C in Urgent Care, for an opinion regarding throat issues. My final recommendations will be communicated back to the requesting provider by way of shared Medical record. The patient's PCP is reported to be Douglas Ball. The patient has not been seen previously. The patient was seen by Mariya on 12/14/20, leading to this consultation. That note has been reviewed. Reported a feeling of pills getting stick in his esophagus. Presenting complaint: pill dysphagia The patient presents today reporting difficulty swallowing pills since about a week after having the CABG. Reporting that even putting the pill in applesauce stopped. Wanting liquid prescriptions. Reports that he is able to eat soft foods like jello, pudding and chicken gravy and drink liquids. Denies heartburn or indigestion. No nausea or vomiting. The patient denies change in bowel habits, rectal bleeding or abdominal pain. Having a bowel movement as usual. Is seeing Dr. Curry tomorrow. The patient is on clopidogrel. REVIEW OF SYSTEMS: GENERAL: No weight loss, malaise or fevers HEENT: Negative for frequent or significant headaches, No changes in hearing or vision, no nose bleeds or other nasal problems NECK: Negative for lumps, goiter, pain and significant neck swelling RESPIRATORY: Negative for cough, hemoptysis, wheezing, COPD, dyspnea or shortness of breath CARDIOVASCULAR: Negative for chest pain GI: As reported above PSYCH: Negative for sleep disturbance, mood disorder and recent psychosocial stressors. HEMATOLOGY/LYMPHOLO GY related to clopidogrel ENDOCRINE: Hypothyroidism. NEURO: No history of headaches, syncope, paralysis, seizures or tremors All other reviewed and negative other than HPI. PAST MEDICAL HISTORY Diagnosis Date - Coronary artery disease involving autologous artery coronary bypass graft without angina pectoris 10/2020 - Drug-induced constipation PAST SURGICAL HISTORY Procedure Laterality Date - CABG (2) VEIN GRAFTS AND ARTERIAL GRAFT(S N/A 11/17/2020 No family history on file. Current Outpatient Medications Medication Sig Dispense Refill - amiodarone (PACERONE) 200 mg tablet Take 200 mg by mouth. - atorvastatin (LIPITOR) 40 mg tablet Take 40 mg by mouth. - aspirin 81 mg chewable tablet Take 81 mg by mouth. - metoprolol tartrate, short acting, (LOPRESSOR) 25 mg tablet Take 12.5 mg by mouth. - furosemide (LASIX) 20 mg tablet Take by mouth. - tamsulosin (FLOMAX) 0.4 mg Take 0.4 mg by mouth. - levothyroxine (SYNTHROID) 100 mcg tablet Take 100 mcg by mouth. - clopidogrel (PLAVIX) 75 mg tablet Take 75 mg by mouth. - magnesium oxide 400 mg magnesium cap Take 400 mg by mouth. - amLODIPine (NORVASC) 10 mg tablet Take 10 mg by mouth once daily. - pantoprazole DR (PROTONIX) 40 mg tablet Take 1 tablet by mouth daily before breakfast. Take on empty stomach, 1/2 hr before meal. 30 tablet 0 No current facility-administer ed medications for this visit. SOCIAL HISTORY: Patient [...] completing clinical documentation, counseling and educating the patient/family/skin care technician, ordering medications, tests, or procedures and care coordination (not separately reported). Antonieta Ortez RN ERP PROGRAMMER.KIERA Ortez RN APRN.KEIRA 12/16/2020 10:13 AM Signed Consider using Prilosec OTC and opening the capsule and sprinkle the contents. We are going to do an xr (more content not included)... Normal [facility] HISTORY PHYSICALon HISTORY PHYSICAL HNO ID: [id number] Author: Antonieta Ortez Service: ? Author Type: Nurse Practitioner Type: HANDP Filed: 12/18/2020 2:49 PM Note Text: Jennifer Ibrahim a 80 year old male who is a consultation requested by Mariya Marroquin PA-C in Urgent Care, for an opinion regarding throat issues. My final recommendations will be communicated back to the requesting provider by way of shared Medical record. The patient's PCP is reported to be Douglas Ball. The patient has not been seen previously. The patient was seen by Mariya on 3/1/21, leading to this consultation. That note has been reviewed. Reported a feeling of pills getting stick in his esophagus. Presenting complaint: pill dysphagia The patient presents today reporting difficulty swallowing pills since about a week after having the CABG. Reporting that even putting the pill in applesauce stopped. Wanting liquid prescriptions. Reports that he is able to eat soft foods like jello, pudding and chicken gravy and drink liquids. Denies heartburn or indigestion. No nausea or vomiting. The patient denies change in bowel habits, rectal bleeding or abdominal pain. Having a bowel movement as usual. Is seeing Dr. Curry tomorrow. The patient is on clopidogrel. REVIEW OF SYSTEMS: GENERAL: No weight loss, malaise or fevers HEENT: Negative for frequent or significant headaches, No changes in hearing or vision, no nose bleeds or other nasal problems NECK: Negative for lumps, goiter, pain and significant neck swelling RESPIRATORY: Negative for cough, hemoptysis, wheezing, COPD, dyspnea or shortness of breath CARDIOVASCULAR: Negative for chest pain GI: As reported above PSYCH: Negative for sleep disturbance, mood disorder and recent psychosocial stressors. HEMATOLOGY/LYMPHOLO GY related to clopidogrel ENDOCRINE: Hypothyroidism. NEURO: No history of headaches, syncope, paralysis, seizures or tremors All other reviewed and negative other than HPI. PAST MEDICAL HISTORY Diagnosis Date - Coronary artery disease involving autologous artery coronary bypass graft without angina pectoris 10/2020 - Drug-induced constipation PAST SURGICAL HISTORY Procedure Laterality Date - CABG (2) VEIN GRAFTS AND ARTERIAL GRAFT(S N/A 11/17/2020 No family history on file. Current Outpatient Medications Medication Sig Dispense Refill - amiodarone (PACERONE) 200 mg tablet Take 200 mg by mouth. - atorvastatin (LIPITOR) 40 mg tablet Take 40 mg by mouth. - aspirin 81 mg chewable tablet Take 81 mg by mouth. - metoprolol tartrate, short acting, (LOPRESSOR) 25 mg tablet Take 12.5 mg by mouth. - furosemide (LASIX) 20 mg tablet Take by mouth. - tamsulosin (FLOMAX) 0.4 mg Take 0.4 mg by mouth. - levothyroxine (SYNTHROID) 100 mcg tablet Take 100 mcg by mouth. - clopidogrel (PLAVIX) 75 mg tablet Take 75 mg by mouth. - magnesium oxide 400 mg magnesium cap Take 400 mg by mouth. - amLODIPine (NORVASC) 10 mg tablet Take 10 mg by mouth once daily. - pantoprazole DR (PROTONIX) 40 mg tablet Take 1 tablet by mouth daily before breakfast. Take on empty stomach, 1/2 hr before meal. 30 tablet 0 No current facility-administer ed medications for this visit. SOCIAL HISTORY: Patient [...] completing clinical documentation, counseling and educating the patient/family/skin care technician, ordering medications, tests, or procedures and care coordination (not separately reported). Antonieta Ortez RN ERP PROGRAMMER.[facility] Normal [facility] CNOVon 12-14-2020 CNOV Office Visit ([facility]) ---- JENNIFER IBRAHIM ([id number]) 1940 M Date Time Provider Department 12/14/20 6:30 AM MARIYA MARROQUIN) [facility] During your visit today, we recorded the following information about you: Temperature Pulse Respiration Blood pressure 98.2 degrees 90/minute 18/minute 126/76 Weight 85.7 kg Mariya Marroquin PA-C 12/14/2020 8:41 AM Addendum This note was created using moka5. Subjective Jennifer Ibrahim is a 80 year old male. [...] Take 75 mg by mouth. - pantoprazole (PROTONIX) 40 mg tablet Take 1 tablet by mouth daily before breakfast. Take on empty stomach, 1/2 hr before meal. 30 tablet 0 No current facility-administer ed medications for this visit. History reviewed. No [...] to the ER. Patient agreeable with plan. 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 Take on empty stomach, 1/2 hr before meal.Disp: 30 tabletRfl: 0 Prescriptions as of 12/14/2020 Sig: AMIODARONE 20 (more content not included)... Normal [facility] Vital Signs Date Time Vital Sign Value Performing Clinician Faci lity 04-29-2025 11:40-0400 Body height 167.[address] Douglas Ball MD Work Phone: [facility] 04-29-2025 11:36-0400 Body mass index (BMI) [Ratio] 29.2 kg/m2 Dr. Douglas Ball MD Work Phone: [facility] 04-29-2025 11:36-0400 Body temperature 97.1 [degF] Dr. Douglas Ball MD Work Phone: [facility] 04-29-2025 11:36-0400 Body weight 82.[address] Douglas Ball MD Work Phone: [facility] 04-29-2025 11:36-0400 Diastolic blood pressure 69 mm[Hg] Dr. Douglas Ball MD Work Phone: [facility] 04-29-2025 11:36-0400 Heart rate 85 /min Dr. Douglas Ball MD Work Phone: [facility] 04-29-2025 11:36-0400 Respiratory rate 16 /min Dr. Douglas Ball MD Work Phone: [facility] 04-29-2025 11:36-0400 SaO2% (BldA) [Mass fraction] 94 % Dr. Douglas Ball MD Work Phone: [facility] 04-29-2025 11:36-0400 Systolic blood pressure 134 mm[Hg] Dr. Douglas Ball MD Work Phone: [facility] 04-29-2025 11:14-0400 Body mass index (BMI) [Ratio] 29.2 kg/m2 Dr. Douglas Ball MD Work Phone: 7(939)550-114917 [place] [address] 04-29-2025 11:14-0400 Body temperature 97.1 [degF] Dr. Douglas Ball MD Work Phone: 3(665)342-145734 [place] [address] 04-29-2025 11:14-0400 Body weight 82.[address] Douglas Ball MD Work Phone: 5(030)829-769634 [place] [address] 04-29-2025 11:14-0400 Diastolic blood pressure 69 mm[Hg] Dr. Douglas Ball MD Work Phone: 8(271)043-575134 [place] [address] 04-29-2025 11:14-0400 Heart rate 85 /min Dr. Douglas Ball MD Work Phone: 7(374)808-973634 [place] [address] 04-29-2025 11:14-0400 Respiratory rate 16 /min Dr. Douglas Ball MD Work Phone: 8(729)867-399134 [place] [address] 04-29-2025 11:14-0400 SaO2% (BldA) [Mass fraction] 94 % Dr. Douglas Ball MD Work Phone: 3(691)201-010334 [place] [address] 04-29-2025 11:14-0400 Systolic blood pressure 134 mm[Hg] Dr. Douglas Ball MD Work Phone: 5(128)943-643017 [place] [address] 04-25-2025 10:20-0400 Body temperature 97 [degF] Dr. Douglas Ball MD Work Phone: 9(862)837-211017 [place] [address] 04-25-2025 10:20-0400 Diastolic blood pressure 59 mm[Hg] Dr. Douglas Ball MD Work Phone: 9(534)982-336834 [place] [address] 04-25-2025 10:20-0400 Heart rate 84 /min Dr. Douglas Ball MD Work Phone: 6(711)547-285417 [place] [address] 04-25-2025 10:20-0400 Respiratory rate 16 /min Dr. Douglas Ball MD Work Phone: 8(149)134-793117 [place] [address] 04-25-2025 10:20-0400 SaO2% (BldA) [Mass fraction] 92 % Dr. Douglas Ball MD Work Phone: [facility] 04-25-2025 10:20-0400 Systolic blood pressure 113 mm[Hg] Dr. Douglas aBll MD Work Phone: [facility] 04-25-2025 10:10-0400 Inhaled oxygen flow rate 2 L/min Dr. Douglas Ball MD Work Phone: 3(069)126-655717 [place] [address] 04-25-2025 06:53-0400 Body height 167.[address] Douglas Ball MD Work Phone: 1(777)616-648634 [place] [address] 04-25-2025 06:53-0400 Body mass index (BMI) [Ratio] 28 kg/m2 Dr. Douglas Ball MD Work Phone: 2(325)375-022817 [place] [address] 04-25-2025 06:53-0400 Body weight [address] Douglas Ball MD Work Phone: 1(747)694-176534 [place] [address] 04-16-2025 15:56-0400 Body height 172.[address] Douglas Ball MD Work Phone: 9(587)098-504134 [place] [address] 04-16-2025 15:56-0400 Body temperature 99.1 [degF] Dr. Douglas Ball MD Work Phone: [facility] 04-16-2025 15:56-0400 Diastolic blood pressure 64 mm[Hg] Dr. Douglas Ball MD Work Phone: [facility] 04-16-2025 15:56-0400 Heart rate 87 /min Dr. Douglas Ball MD Work Phone: [facility] 04-16-2025 15:56-0400 Respiratory rate 18 /min Dr. Douglas Ball MD Work Phone: [facility] 04-16-2025 15:56-0400 SaO2% (BldA) [Mass fraction] 94 % Dr. Douglas Ball MD Work Phone: [facility] 04-16-2025 15:56-0400 Systolic blood pressure 121 mm[Hg] Dr. Douglas Ball MD Work Phone: 6(698)888-443517 [place] [address] 04-15-2025 11:52-0400 Body height 172.[address] Douglas Ball MD Work Phone: 7(881)044-249334 [place] [address] 04-15-2025 11:52-0400 Body mass index (BMI) [Ratio] 26.9 kg/m2 Dr. Douglas Ball MD Work Phone: 1(380)766-787434 [place] [address] 04-15-2025 11:52-0400 Body temperature 97.3 [degF] Dr. Douglas Ball MD Work Phone: 6(777)558-057834 [place] [address] 04-15-2025 11:52-0400 Body weight 80.[address] Douglas Ball MD Work Phone: 1(003)580-505634 [place] [address] 04-15-2025 11:52-0400 Diastolic blood pressure 67 mm[Hg] Dr. Douglas Ball MD Work Phone: 6(421)904-197734 [place] [address] 04-15-2025 11:52-0400 Heart rate 82 /min Dr. Douglas Ball MD Work Phone: 7(618)665-199434 [place] [address] 04-15-2025 11:52-0400 Respiratory rate 16 /min Dr. Douglas Ball MD Work Phone: 5(899)139-828634 [place] [address] 04-15-2025 11:52-0400 SaO2% (BldA) [Mass fraction] 92 % Dr. Douglas Ball MD Work Phone: 3(196)610-336134 [place] [address] 04-15-2025 11:52-0400 Systolic blood pressure 132 mm[Hg] Dr. Douglas Ball MD Work Phone: 6(426)618-007534 [place] [address] 04-07-2025 09:16-0400 Body height 172.[address] Douglas Ball MD Work Phone: 8(815)559-389334 [place] [address] 04-07-2025 09:16-0400 Body mass index (BMI) [Ratio] 26.9 kg/m2 Dr. Douglas Ball MD Work Phone: 9(552)766-128834 [place] [address] 04-07-2025 09:16-0400 Body temperature 97.3 [degF] Dr. Douglas Ball MD Work Phone: [facility] 04-07-2025 09:16-0400 Body weight 80.[address] Douglas Ball MD Work Phone: [facility] 04-07-2025 09:16-0400 Diastolic blood pressure 73 mm[Hg] Dr. Douglas Ball MD Work Phone: 4(734)655-358817 [place] [address] 04-07-2025 09:16-0400 Heart rate 70 /min Dr. Douglas Ball MD Work Phone: 9(288)627-394117 [place] [address] 04-07-2025 09:16-0400 Respiratory rate 16 /min Dr. Douglas Ball MD Work Phone: 3(201)000-085017 [place] [address] 04-07-2025 09:16-0400 SaO2% (BldA) [Mass fraction] 95 % Dr. Douglas Ball MD Work Phone: 0(055)437-346717 [place] [address] 04-07-2025 09:16-0400 Systolic blood pressure 143 mm[Hg] Dr. Douglas Ball MD Work Phone: 9(622)747-971717 [place] [address] 03-31-2025 15:56-0400 Body height 172.[address] Douglas Ball MD Work Phone: 1(024)633-487817 [place] [address] 03-31-2025 15:56-0400 Body mass index (BMI) [Ratio] 27.6 kg/m2 Dr. Douglas Ball MD Work Phone: 9(889)030-770617 [place] [address] 03-31-2025 15:56-0400 Body temperature 98.6 [degF] Dr. Douglas Ball MD Work Phone: 7(637)319-586017 [place] [address] 03-31-2025 15:56-0400 Body weight 82.[address] Douglas Ball MD Work Phone: 5(391)018-452417 [place] [address] 03-31-2025 15:56-0400 Diastolic blood pressure 66 mm[Hg] Dr. Douglas Ball MD Work Phone: [facility] 03-31-2025 15:56-0400 Heart rate 87 /min Dr. Douglas Ball MD Work Phone: [facility] 03-31-2025 15:56-0400 Respiratory rate 18 /min Dr. Douglas Ball MD Work Phone: [facility] 03-31-2025 15:56-0400 SaO2% (BldA) [Mass fraction] 94 % Dr. Douglas Ball MD Work Phone: 0(182)506-987617 [place] [address] 03-31-2025 15:56-0400 Systolic blood pressure 164 mm[Hg] Dr. Douglas Ball MD Work Phone: 7(275)690-072617 [place] [address] 03-14-2025 13:06-0400 Body temperature 97.7 [degF] Dr. Douglas Ball MD Work Phone: 8(402)636-357334 [place] [address] 03-14-2025 13:06-0400 Diastolic blood pressure 79 mm[Hg] Dr. Douglas Ball MD Work Phone: 3(353)213-006434 [place] [address] 03-14-2025 13:06-0400 Heart rate 87 /min Dr. Douglas Ball MD Work Phone: 2(268)149-171131 [address] 03-14-2025 13:06-0400 Respiratory rate 20 /min Dr. Douglas Ball MD Work Phone: 4(238)785-184634 [place] [address] 03-14-2025 13:06-0400 SaO2% (BldA) [Mass fraction] 93 % Dr. Douglas Ball MD Work Phone: 8(497)120-687931 [address] 03-14-2025 13:06-0400 Systolic blood pressure 134 mm[Hg] Dr. Douglas Ball MD Work Phone: 3(338)386-268817 [place] [address] 03-14-2025 10:13-0400 Body height 172.[address] Douglas Ball MD Work Phone: 4(548)547-063817 [place] [address] 03-14-2025 10:13-0400 Body mass index (BMI) [Ratio] 27.6 kg/m2 Dr. Douglas Ball MD Work Phone: 9(751)941-814917 [place] [address] 03-14-2025 10:13-0400 Body weight 82.[address] Douglas Ball MD Work Phone: [facility] 05-22-2023 13:09-0400 Body height 172.[address] Douglas Ball Work Phone: [facility] 05-22-2023 13:08-0400 Body mass index (BMI) [Ratio] 28.4 kg/m2 Dr. Douglas Ball Work Phone: [facility] 05-22-2023 13:08-0400 Body weight 84.[address] Douglas Ball Work Phone: [facility] 05-22-2023 13:08-0400 Diastolic blood pressure 80 mm[Hg] Dr. Douglas Ball Work Phone: [facility] 05-22-2023 13:08-0400 Heart rate 87 /min Dr. Douglas Ball Work Phone: [facility] 05-22-2023 13:08-0400 Respiratory rate 18 /min Dr. Douglas Ball Work Phone: [facility] 05-22-2023 13:08-0400 SaO2% (BldA) [Mass fraction] 95 % Dr. Douglas Ball Work Phone: [facility] 05-22-2023 13:08-0400 Systolic blood pressure 170 mm[Hg] Dr. Douglas Ball Work Phone: [facility] Encounters Encounter Date Encounter Type Care Provider Facility Start: 05-02-2025 End: 05-02-[address] Ernesto Mendes MD -[facility] Work Phone: Start: 05-02-2025 End: 05-02-[address] Douglas Ball MD Work Phone: -[facility] Start: 04-30-2025 ambulatory Sam Méndez [place] [facility] [place] Start: 04-30-2025 Non-patient / Non-visit Dr. Sam hcawla DO -[facility] Start: 04-29-2025 End: 04-29-[address] Sam M[facility]dez [facility] Work Phone: Start: 04-29-2025 End: 04-29-[address] Douglas Ball MD Work Phone: [facility] Start: 04-25-2025 ambulatory Ernesto Mendes Facility:[facility] Start: 04-25-2025 Non-patient / Non-visit Dr. Ernesto payton MD -[facility] Start: 04-25-2025 End: 04-25-2025 Admission to same day surgery center Dr. Ernesto Mendes MD [facility] Start: 04-25-2025 End: 04-25-[address] Douglas Ball MD Work Phone: [facility] Start: 04-22-[address] Chevy Beckham MD -[facility] Start: 04-22-2025 ambulatory Patricia Reza ty:[facility] Start: 04-16-2025 End: 04-16-[address] Ernesto Mendes MD -[facility] Work Phone: Start: 04-16-2025 End: 04-16-[address] Douglas Ball MD Work Phone: -[facility] Start: 04-15-2025 End: 04-15-[address] Patricia Beckham MD -[facility] Work Phone: Start: 04-15-2025 End: 04-15-[address] Douglas Ball MD Work Phone: [facility] Start: 04-09-2025 End: 04-09-[address] Ernesto Mendes MD -[facility] Work Phone: Start: 04-09-2025 End: 04-09-[address] Douglas Ball MD Work Phone: [facility] Work Phone: Start: 04-09-2025 End: 04-09-[address] Douglas Ball MD Work Phone: -Laboratory Specimen Start: 04-09-2025 End: 04-09-[address] Ernesto Mendes MD -Labor[facility] Specimen Work Phone: Start: 04-07-2025 End: 04-07-[address] Patricia Beckham MD -[facility] Work Phone: Start: 04-07-2025 End: 04-07-[address] Douglas Ball MD Work Phone: [facility] Work Phone: Start: 04-02-2025 End: 04-02-[address] Douglas Ball MD Work Phone: [facility] Work Phone: Start: 04-02-2025 End: 04-02-[address] Ernesto Mendes MD -[facility] Work Phone: Start: 04-02-2025 End: 04-02-2025 ambulatory Ernesto Mendes Facility:[facility] Start: 03-31-2025 End: 03-31-[address] Ernesto Mendes MD -[facility] Work Phone: Start: 03-31-2025 End: 03-31-[address] Douglas Ball MD Work Phone: [facility] Work Phone: Start: 03-19-2025 End: 03-19-[address] Douglas Ball MD Work Phone: [facility] Work Phone: Start: 03-19-2025 End: 03-19-[address] Douglas Ball MD -Laboratory Work Phone: Start: 03-19-2025 End: 03-19-2025 ambulatory Douglas Ball Facility:[facility] Start: 03-14-2025 ambulatory Douglas Ball Facility:[facility] Start: 03-14-2025 Non-patient / Non-visit Dr. Zoran Mojica MD -[facility] Start: 03-14-2025 End: 03-14-2025 Emergency department patient visit Dr. Douglas Ball MD Work Phone: -Emergency Department Work Phone: Start: 09-18-2024 End: 09-18-2024 ambulatory [facility] George Ball Facility:[facility] Start: 07-11-2024 End: 07-11-2024 ambulatory Douglas Ball [place] Start: 09-11-2023 End: 09-11-[address] Douglas Ball Work Phone: [facility] Work Phone: Start: 09-11-2023 End: 09-11-[address] [facility] Start: 05-22-2023 End: 05-22-[address] Douglas Ball Work Phone: [facility] Work Phone: Start: 03-15-2023 End: 03-15-2023 ambulatory [facility] Work Phone: Start: 03-15-2023 End: 03-15-2023 [facility] Start: 03-10-2022 End: 03-10-2022 Patient encounter procedure [facility], y Office 3rd Flr Procedures Date Procedure Procedure Detail Performing Clinician Start: 04-25-[address] Douglas juarez MD Work Phone: Start: 04-22-[address] of whole body Dr Tano Ball MD Work Phone: Start: 04-02-2025 CT of thorax with contrast [...] Treatment Date Care Activity Detail Author Start: 05-12-2025 ambulatory Ambulatory Facility:[facility] Start: 04-25-2025 Anes integ extremiti es ant trunk & perineum nos ANESTH SKIN EXT/PER/ATRUNK [facility] Start: 04-25-2025 Excision malignant lesion trunk/arm/leg > 4.0 cm EXC TR-EXT MAL+LUCINA >4 CM [facility] Start: 04-25-2025 Repair complex trunk 2.6-7.5 cm CMPLX RPR TRUNK 2.6-7.5 CM [facility] Start: 04-25-2025 Repair complex trunk each additional 5 cm/< CMPLX RPR TRUNK ADDL 5CM/< [facility] Start: 04-25-2025 Patient discharge [facility] Start: 04-07-2025 Patient referral [facility] Work Phone: Start: 03-31-2025 Patient referral [facility] Work Phone: Start: 03-14-2025 End: 03-14-[address] [facility] [address] Chest W contrast IV [facility] Patient Education ED Tumor, Unce rtain Cause [facility] Work Phone: Patient referral [facility] Work Phone: PET CT of whole body [facility] Immunizations Immunization Date Immunization Notes Care Provider Kiki martell 07-28-2020 Influenza virus vaccine [facility] Payers Date Payer Category Payer Self-pay [id number] 2023 Private Health Insurance [facility] [id number] 2004 Medicare [id number] Unknown [id number] 2.16.8 [id number] Unknown [id number] 2.16.8 40.1.086291.3.579.2.462 Unknown [id number] 2.16.8 40.1.515310.3.579.2.462 Unknown [id number] 2.16.8 40.1.673466.3.579.2.462 Unknown [id number] 2.16.8 40.1.063868.3.579.2.462 Unknown [id number] 2.16.8 40.1.716492.3.579.2.462 Unknown [id number] 2.16.8 40.1.474642.3.579.2.462 Unknown [id number] 2.16.8 40.1.801743.3.579.2.462 Unknown [id number] 2.16.8 40.1.460678.3.579.2.462 Unknown [id number] 2.16.8 40.1.634666.3.579.2.462 Unknown [id number] 2.16.8 40.1.715022.3.579.2.462 Unknown [id number] 2.16.8 40.1.005110.3.579.2.462 Unknown [id number] 2.16.8 40.1.830240.3.579.2.462 Unknown [id number] 2.16.8 40.1.861285.3.579.2.462 Unknown [id number] 2.16.8 40.1.987375.3.579.2.462 Unknown [id number] 2.16.8 40.1.327108.3.579.2.462 Unknown [id number] 2.16.8 40.1.477381.3.579.2.462 Unknown [id number] 2.16.8 40.1.456142.3.579.2.462 Unknown [id number] 2.16.8 40.1.316415.3.579.2.462 Unknown [id number] 2.16.8 40.1.604088.3.579.2.462 Unknown [id number] 2.16.8 40.1.275113.3.579.2.462 Unknown [id number] 2.16.8 40.1.700276.3.579.2.462 Social History Date Type Detail Facility Start: 09-23-2021 End: 05-22-2023 Tobacco smoking status NMIS Unknown if ever smoked [facility] Start: 12-28-2020 None [facility] Start: 12-28-2020 Alone [facility] Start: 1940 Sex Assigned At Male [facility] Start: 03-14-2025 End: 04-24-2025 Tobacco smoking status NHIS Ex-smoker (finding) [facility] Medical Equipment Procedure Code Equipment Code Equipment Origin al Text Equipment Identifier Dates Excision, lesion Plant polysacch aride haemostatic agent, bioabsorbable ([id number] FDA Start: 04-25-2025 Goals Date Patient Goal Desired Activity /State Mental Status Date Assessment Result Facility 04-25-2025 Cognitive function Voice/Name [facility] Work Phone: Clinical Notes 11-16-2020 to 04-29-2025 Note Date & Type Note Facility 04-29-2025 Progress note [facility] 04-29-2025 Progress note Note Date/Time April 29, 2025 11:53am [facility] [address] [place], [place] [address] [address] OFFICE VISIT Date of Service: 04/29/25 [facility] MR#: [id number] Acct: [id number] Name: JENNIFER CUNNINGHAM Rep #: [id number] : 1940 From: Sam don DO Age/Sex: 84/M [place] [facility] Status: Signed Intake Vital Signs 04/16/25 15:56 04/25/25 06:53 04/29/25 11:14 Height 5 ft 8 in 5 ft 6 in 5 ft 6 in Weight: 181 lb BMI 29.2 BP 134/69 H Blood Pressure Location Lt brachial Position Sitting Respiration 16 Pulse 85 Pulse Source Monitor Temp 97.1 F L Temperature Source Temporal Artery Pulse Oximetry (%) 94 Oxygen Delivery Method room air Intake Visit Reasons: CONSULT - SKIN CA Is patient in pain?: Yes (chest ) Pain scale (1-10): 9 Allergies amoxicillin (From Augmentin) Allergy (Verified 04/29/25 11:35) Rash clavulanic acid (From Augmentin) Allergy (Verified 04/29/25 11:35) Rash oxycodone Adverse Reaction (Intermediate, Verified 04/29/25 11:35) OTHER Opioids - Morphine Analogues Adverse Reaction (Verified 04/29/25 11:35) Low blood pressure Medications ?Medication ?Instructions ?Recorded ?Confirmed ?Type tamsulosin 0.4 mg capsule 0.4 mg PO DAILY PROSTATE 04/29/25 History albuterol sulfate 2.5 mg/3 mL 2.5 mg inhalation Q6H HI N 09/23/21 04/29/25 History (0.083 %) solution for nebulization shortness of breat h or wheezing aspirin 81 mg tablet,delayed 81 mg PO DAILY #1 TAB 07/0604/29/25 Rx release furosemide 40 mg tablet 40 mg PO DAILY 04/04/2204/15 History metoprolol succinate 100 mg 50 mg PO BID 09/28/2204/15 History tablet,extended release 24 hr amlodipine 10 mg tablet 5 mg PO DAILY BP 12/21/23 History levothyroxine 125 mcg tablet 125 mcg PO DAILY 12/21/23 04/29/25 History atorvastatin 40 mg tablet 40 mg PO QHS for cholesterol #90 05/22/24 04/29/25 Rx TABLETS magnesium oxide 400 mg (241.3 mg 400 mg PO BID 5 04/29/25 History magnesium) tablet potassium chloride 10 mEq 10 meq PO DAILY 03/14/25 History capsule,extended release cetirizine 10 mg tablet (24Hour 10 mg PO DAILY PRN all ergy symptoms 04/25/25 04/29/25 History Allergy) oxycodone 5 mg tablet 5 mg PO BID PRN pain 5 days #10 04/25/25 04/29/25 Rx tabs Have you fallen in the past year?: No PFSH PFSH Medical History Loss of hearing Edentulous Anxiety Thyroid disease Prostate disease Easy bruising Blackout Chronic cough Former smoker History of irregular heartbeat History of echocardiogram Cardiology follow-up encounter Malignant melanoma COPD (chronic obstructive pulmonary disease) Essential hypertension Hyperlipidemia Open wound of left thigh Sepsis Abscess or cellulitis of thigh 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 Non-rheumatic mitral regurgitation Pulmonary hypertension NSTEMI (non-ST elevated myocardial infarction) CHF (congestive heart failure) Home Medications ?Medication ?Instructions ?Recorded ?Last Taken ?Type tamsulosin 0.4 mg capsule 0.4 mg PO DAILY PROSTATE 04/24/25 History albuterol sulfate 2.5 mg/3 mL 2.5 mg inhalation Q6H HI N 09/23/21 Unknown History (0.083 %) solution for nebulization shortness of breat h or wheezing aspirin 81 mg tablet,delayed 81 mg PO DAILY #1 TAB 07/0604/21/25 Rx release furosemide 40 mg tablet 40 mg PO DAILY 04/04/2204/15 History metoprolol succinate 100 mg 50 mg PO BID 09/28/2204/15 History tablet,extended release 24 hr amlodipine 10 mg tablet 5 mg PO DAILY BP 12/21/23 History levothyroxine 125 mcg tablet 125 mcg PO DAILY 12/21/23 04/24/25 History atorvastatin 40 mg tablet 40 mg PO QHS for cholesterol #90 05/22/24 04/24/25 Rx TABLETS magnesium oxide 400 mg (241.3 mg 400 mg PO BID 5 04/24/25 History magnesium) tablet potassium chloride 10 mEq 10 meq PO DAILY 03/14/2508/09 History capsule,extended release cetirizine 10 mg tablet (24Hour 10 mg PO DAILY PRN all ergy symptoms 04/25/25 04/25/25 History Allergy) oxycodone 5 mg tablet 5 mg PO BID PRN pain 5 days #10 04/25/25 Unknown Rx tabs Allergy/AdvReac Type Severity Reaction Status Date / Time amoxicillin (From Augmentin) Allergy Rash Verified 04/29/25 11:35 clavulanic acid (From Allergy Rash Verified 04/29/25 11:35 Augmentin) oxycodone AdvReac Intermediate OTHER Verified 04/29/25 11:35 Opioids - Morphine Analogues AdvReac Low blood Verified 04/29/25 11:35 pressure Family History Grandmother CAD (coronary artery disease) Father CAD (coronary artery disease) Surgical History History of external ear surgery History of coronary artery bypass surgery (~11/25/20) Social History Smoking Status: Former smoker Tobacco: How many years used: 20 alcohol intake: never substance use type: does not use caffeine: Yes Type: coffee Number of servings: 4 additional social history: pt denies vaping, pt denies marijuana, pt denies smoking pt uses ibuprofen as needed pt uses aspirin daily Referring Provider: Patricia Beckham MD Diagnosis: Jennifer Cunningham is an 84 year-old male diagnosed with 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 History of Present Illness: 03/14/2025: Patient completed a biopsy of a right chest mass involving the skin.?Pathology was consistent with high-grade malignant neoplasm involving the dermis/deep soft tissue with no observed epidermal involvement.? BRAF V600E and TERT promoter mutation are detected. 04/02/2025: Chest CT with contrast was performed.? This demonstrated a 1.5 cm indeterminate right adrenal nodule.? There is a 6.7 x 4.5 cm lesion emanating from the right areolar region 04/09/2025: Patient completed right upper abdomen excision of a lesion.? Pathology was consistent with malignant melanoma with ulceration involving the superior surgical margin, Poli level IV, Breslow thickness of 5 mm. 04/22/2025: PET scan was performed.? This demonstrated increased activity in a large exophytic right anterior lateral chest hypermetabolic mass consistent withmalignancy.? There are right axillary lymph nodes concerning for malignant adenopathy.? There is an area in the posterior right ascending colon with a hypermetabolic mass. Radiation Treatment History: No prior history of radiation therapy. No pacemaker. No diagnosis of radiosensitizing comorbidity. Interval History: Patient presents for initial consultation. He has had a small mass involving his right chest wall for now couple of months and this has been worked up and found to represent metastatic melanoma. This mass has grown in size over the last 2 months and is now measuring about 7 to 8 cm is very exophytic out of the chest and also is occasionally bleeding. Does not cause much discomfort. He does have home health coming out a couple times per week to help him dress this area. He does live with his daughter who helps him with some daily activities but overall he has been able to care for himself fairly well. He just completedresection of the abdominal primary melanoma and is healing well, does have discomfort in this area, this surgery was completed about 5 days ago. He deniescough, shortness of breath, bone pain, headache, nausea/vomiting, weakness/numbness. He denies axillary adenopathy. He reports good arm range ofmotion. He denies having other problems or concerns at this time. Review of Systems: A 12-point review of systems was completed and was negative except for what is noted in the HPI/Interval History and by the nurse. Physical Exam: Weight: 181 lbs ECO-3 KARNOFSKY SCORE: 50-60% CONSTITUTIONAL: Well-developed, well-nourished, and in no apparent distress. NECK: Supple, no thyromegaly, and non-tender. Trachea midline. No cervical or supraclavicular adenopathy noted. CARDIAC: Regular rate and rhythm. Normal S1, S2. No murmurs, rubs, or gallops. PULMONARY/CHEST: Lungs are clear to auscultation and percussion bilaterally. No wheezes, rhonchi, or crackles noted. No increased work of breathing. Right CW mass, exophytic, about 7-8 cm diameter, areas of bleeding/oozing present. ABDOMINAL: Abdomen soft, non-distended. No hepatomegaly. Normoactive bowel sounds in all four quadrants. No guarding, rebound. Covered abdominal surgical site. EXTREMITIES: Full range of motion in all four extremities. No evidence of edema. PSYCHIATRIC: Appropriate mood and affect for the clinical situation. 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 Plan: Patient presents for initial consultation. He does have a reduced performance status with frailty. We had a discussion regarding the diagnosis of metastatic melanoma. We reviewed the PET scan findings which demonstrate the right chest wall mass in addition to at least 3-4 abnormal appearing axillary lymph nodes onthe right side. He completed resection of the primary abdominal melanoma last week and is recovering well, still has pain in this area. The chest wall mass has significantly increased in size over the last 1 to 2 months and is now bothering him with mild pain and also occasional oozing and smell. [facility] help change his dressing a couple times per week. He is planning to start systemic therapy with medical oncology likely with immune therapy. We reviewed the use of palliative radiation therapy for the right chest wall mass. We discussed the logistics of radiation therapy including CT simulation, treatment planning, and fractionated treatment delivery. We reviewed the use of potentially 5-10 treatments. We discussed the potential acute and chronic toxicities which would include but is not limited to skin erythema, fatigue, nonhealing wound, cough/pneumonitis, chest wall discomfort, muscle tightness in the treated area, rib weakness/fracture risk in the future, secondary malignancy. Following our discussion the patient desired to proceed with palliative radiation therapy. Will have him return for CT simulation as soon as we can to expedite treatment planning and initiation. He was instructedto call with any further questions or concerns in interim. Thank you for allowing me to participate in the management and care of your patient. If I may answer any questions in the interim, please do not hesitate tocontact me at any time. Sam Méndez DO, MS [employer] Supervisor, Department of Radiation Oncology [facility] Coding Level of Care Code Off vis,new,level 5 Diagnoses Malignant neoplasm of skin of chest C44.509 04/29/25 1153 <Electronically signed by Sam Méndez DO> Date _ Sam Méndez DO Cosigner Signature: Date (if applicable) CC: Dr. Patricia Beckham MD; Dr. Douglas Ball MD ~ [facility] Work Phone: 1(571) 545-430307-11-2025 History and physical note Author Ernesto Marciliset [facility] Note Date/Time April 25, 2025 8:15 am [facility] Medical Records Department [address] [place] [address] H&P Exam - Surgical 04/25/25 0812 MR#: [id number] Acct: [id number] Name: JENNIFER CUNNINGHAM Rep #:[id number] : 1940 84 From: Ernesto Mendes MD PCP: Dr. Douglas Ball MD Status:REG S DC Location: [place] [address] HPI - General HPI Narrative JENNIFER CUNNINGHAM, is a 84 M who presents with melanoma on chest. Here for excisionof scar for local control of the primary tumor. [facility] Medical History Loss of hearing Edentulous Anxiety Thyroid disease Prostate disease Easy bruising Blackout Chronic cough Former smoker History of irregular heartbeat History of echocardiogram Cardiology follow-up encounter Malignant melanoma COPD (chronic obstructive pulmonary disease) Essential hypertension Hyperlipidemia Open wound of left thigh Sepsis Abscess or cellulitis of thigh 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 Non-rheumatic mitral regurgitation Pulmonary hypertension NSTEMI (non-ST elevated myocardial infarction) CHF (congestive heart failure) Home Medications ?Medication ?Instructions ?Recorded ?Last Taken ?Type tamsulosin 0.4 mg capsule 0.4 mg PO DAILY PROSTATE 04/24/25 History albuterol sulfate 2.5 mg/3 mL 2.5 mg inhalation Q6H HI N 09/23/21 Unknown History (0.083 %) solution for nebulization shortness of breat h or wheezing aspirin 81 mg tablet,delayed 81 mg PO DAILY #1 TAB 07/0604/21/25 Rx release furosemide 40 mg tablet 40 mg PO DAILY 04/04/2204/15 History metoprolol succinate 100 mg 50 mg PO BID 09/28/2204/15 History tablet,extended release 24 hr amlodipine 10 mg tablet 5 mg PO DAILY BP 12/21/23 History levothyroxine 125 mcg tablet 125 mcg PO DAILY 12/21/23 04/24/25 History atorvastatin 40 mg tablet 40 mg PO QHS for cholesterol #90 05/22/24 04/24/25 Rx TABLETS magnesium oxide 400 mg (241.3 mg 400 mg PO BID 5 04/24/25 History magnesium) tablet potassium chloride 10 mEq 10 meq PO DAILY 03/14/2508/09 History capsule,extended release cetirizine 10 mg tablet (24Hour 10 mg PO DAILY PRN all ergy symptoms 04/25/25 04/25/25 History Allergy) Allergy/AdvReac Type Severity Reaction Status Date / Time amoxicillin (From Augmentin) Allergy Rash Verified 04/25/25 06:51 clavulanic acid (From Allergy Rash Verified 04/25/25 06:51 Augmentin) oxycodone AdvReac Intermediate OTHER Verified 04/25/25 06:51 Opioids - Morphine Analogues AdvReac Low blood Verified 04/25/25 06:51 pressure Family History Grandmother CAD (coronary artery disease) Father CAD (coronary artery disease) Surgical History History of external ear surgery History of coronary artery bypass surgery (~11/25/20) Social History Smoking Status: Former smoker Tobacco: How many years used: 20 alcohol intake: never substance use type: does not use caffeine: Yes Type: coffee Number of servings: 4 additional social history: pt denies vaping, pt denies marijuana, pt denies smoking pt uses ibuprofen as needed pt uses aspirin daily Vital Signs Vital Signs Vital Signs: 04/25/25 06:53 04/25/25 06:53 Temperature 97.8 F Temperature Source Temporal Pulse Rate 97 Respiratory Rate 16 Respiratory Pattern Normal Blood Pressure 153/71 H Blood Pressure Mean 98 Blood Pressure Source Monitor Blood Pressure Position Semi-Fowlers Blood Pressure Location Right Arm Pulse Ox 96 Oxygen Delivery Method Room Air Weight Weight: 174 lb 2.643 oz Body Mass Index (BMI) 28.0 Physical Exam Narrative Right chest mass Right chest scar (marked with 2 cm margins for excision) Assessment & Plan Assessment/Plan (1) Malignant neoplasm of skin of chest: (2) Malignant melanoma: QUALIFIERS: Melanoma location: unspecified site Qualified Code(s): C43.9 - Malignant melanoma of skin, unspecified PLAN: Plan I talked to the patient extensively about the risks of surgery, including bleeding, infection, damage to surrounding structures, poor scaring, surgical site dehiscence and wound formation, need for wound care, need for repeat operations, failure to obtain the desired result, DVT/PE, and the risks of anesthesia including , including stroke (from low blood pressure/ischemia or clot). The benefits and alternatives of this surgery were also discussed. All of their questions were answered, and they agreed to proceed with surgery. I talked to his oncologist. Our plan is for control today of the primary melanoma with marginal control to attempt to clear margins (wide local excision). The team will radiate the chest metastasis (bleeding large mass). Patient and his family in agreement (I discussed thoroughly ) 04/25/25 7130 <Electronically signed by Ernesto Mendes MD> Cosigner Signature (if applicable): CC: Dr. Ernesto Mendes MD; Dr. Douglas Ball MD~ Signed [facility] Work Phone: 1(130) 801-196307-11-2025 Consult note [facility] Medical Records Department [address] [place] [address] Anesthesia Postop Eval I 04/25/25 1003 MR#: [id number] Acct: [id number] Name: JENNIFER CUNNINGHAM Rep #:[id number] : 1940 84 From: Mann Collins CRNA PCP: Dr. Douglas Ball MD Status:REG S DC Y Race: C Location: [place] [address] Anesthesia: Postop Eval I Current Vital Signs Temperature: 97.2 F Pulse Rate: 90 Blood Pressure: 123/66 Respiratory Rate: 20 Pulse Ox: 93 Oxygen Delivery Method: Room Air Assessment Airway patent: Yes Spontaneous unlabored respirations: Yes Mental status: Awake and Calm nausea: No Vomiting: No Anesthesia Complication: No Fluid Hydration Crystalloid volume administer (ml): 1,000 Total IV fluid infused: 1,000 Progress Note Anesthesia document: Postop Eval 1 completed: Yes 04/25/25 1004 y SHOP FITTER> Date _ Mann Collins SHOP FITTER Cosigner Signature: Date CC: ~ Signed [facility]07-11-2025 Consult note Author Jose Alberto Mcgill [facility] Note Date/Time April 25, 2025 6:47 am [facility] Medical Records Department [address] [place] [address] Pre-Anesthesia Evaluation 04/25/25 0646 MR#: [id number] Acct: [id number] Name: JENNIFER CUNNINGHAM Rep #:[id number] : 1940 84 From: Jose Alberto Mcgill MD PCP: Dr. Douglas Ball MD Status:REG S DC Y Race: C Location: [facility]-1 ASA Classification* ASA Classification ASA Classification: 3 Assessment & Plan Anesthesia* Anesthesia Assessment Anesthesia Assessment: Discussed sedation and/or anesthesia options, risks, benefits, and alternatives with patient/parents/legal guardian/POA. Questions invited. The patient/parents/legal guardian/POA seems to understand and agrees to proceedwith anesthesia plan. Reviewed the physical assessment, medical history, allergy history and patient home medications list prior to surgery/procedure/anesthetic and documented any changes. Performed airway and anesthesia risk assessments. Anesthesia Type Anesthesia Type: MAC Anesthesia Focused Assessment* Airway Assessment Mouth opens: >3 cm Mallampati Score: II Labs Anesthesia Preop lab: CBC WBC 9.3 K/mm3 (4.4-11.0) 03/19/25 10:03/19/25 RBC 4.07 M/mm3 (4.6-6.2) L 03/19/25 10:03/19/25 Hgb 12.2 g/dL (13.0-16.5) L 03/19/25 10: 5 Hct 37.0 % (40-54) L 03/19/25 10:03/19/25 Plt Count 180 K/mm3 (150-450) 03/19/25 10:03/19/25 CHEMISTRY Potassium 4.3 mmol/L (3.3-5.1) 03/19/25 10:03/19/25 Sodium 139 mmol/L (133-145) 03/19/25 10:03/19/25 Magnesium 2.0 mg/dL (1.6-2.6) 09/15/20 15:00 09/15/20 Phosphorus 3.1 mg/dL (2.5-4.9) 09/15/20 15:00 09/15/20 BUN 13 mg/dL (4-19) 03/19/25 10:03/19/25 Creatinine 0.99 mg/dL (0.70-1.20) 03/19/25 10:03/19/25 Glucose 115 mg/dL (70-99) H 03/19/25 10:03/19/25 TSH 1.880 uIU/mL (0.300-4.200) 03/19/25 10:22 06/0 02/07 COAG PT 13.8 SECONDS (11.7-14.9) 12/28/20 09:35 Pre-Assessment Diagnosis/Proposed Procedure Planned Operative Procedure(s): (R) Excision for margins right chest melanoma( primary lesion with primary closure Anesthesia History Anesthesia History - client executive: Anesthesia History - client executive Hx Hospitalization No 04/24/25 16:02 Any Problems With Anesthesia No 04/24/25 16:02 Cholinesterase deficiency No 04/24/25 16:02 You/Your Family Experience No 04/24/25 16:02 fever (hyperthermia) with Relationship Recent Exposure to Contagious Disease Does patient have nerve No 04/24/25 16:02 stimulator Patient instructed to have device shut off --Does patient have Pacemaker or ICD? When Was Last Pacemaker Check QUESTION #4 FULL TEXT: You/Your Family Experience fever (hyperthermia) with Anesthesia Last Oral Intake Last Oral intake: Last Oral Intake NPO since Meds taken in AM with sips of water? Meds patient instructed to take am of surgery PONV PONV - client executive: PONV - client executive Female No 04/24/25 16:02 HX of Motion Sickness No 04/24/25 16:02 HX of N/V After Surgery No 04/24/25 16:02 Non-Smoker Yes 04/24/25 16:02 Duration of Surgery greater Yes 04/24/25 16:02 than 60 minutes Number of Risk Factors 2 04/24/25 16:02 PONV Score Moderate Risk 04/24/25 16:02 Height & Weight Height & Weight: Anesthesia: Height & Weight Height 5 ft 8 in 04/16/25 15:56 Respiratory Assessment Respiratory Assessment - client executive: Respiratory Tract Infection Hx - client executive Hx Respiratory Tract Infection No 04/24/25 16:02 STOP Sleep Apnea STOP Sleep Apnea - client executive: STOP Sleep Apnea - client executive Hx Hypertension Yes: PER PT, CONTROLLED ON 04/24/25 16:02 MEDS Hx Sleep Apnea No 04/24/25 16:02 CPAP BIPAP Do you snore loudly (louder Yes 04/24/25 16:02 than talking or can be heard Do you often feel tired/ No 04/24/25 16:02 fatigued/ sleepy during daytime? Has anyone observed you stop No 04/24/25 16:02 breathing during sleep? STOP Results Positive 04/24/25 16:02 QUESTION #5 FULL TEXT : Do you snore loudly (louder than talking or can be heard through closed doors)? 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 Specify any problems Hx of Preganancy in last 3 N/A 04/24/25 16:02 Months Nurse Filling Out Transfusion MGRIFFITH 04/24/25 16:02 & Questions: Date: 04/24/25 04/24/25 16:02 Time: 16:04 04/24/25 16:02 Patient unable to answer at this time (ie. confused, unrespo /Reproduction History /Reproductive History - client executive: /Reproductive Hx- client executive Hx Now Gestational Age (in weeks): EDC: Hx Hx Para Hx Section SAB Active Medications Active Medications: Current Medications Generic Name Dose Route Start Last Admin Trade Name Freq PRN Reason Stop Dose Admin Clindamycin Phosphate 900 mg in 50 mls @ 75 mls/hr 04/25/25 09:00 Cleocin IV 04/25/25 09:39 INTRAOP ONE Lactated Ringer's 1,000 mls @ 15 mls/hr 04/25/25 06:45 IV .Q48H GAGAN PFSH Medical History Loss of hearing Edentulous Anxiety Thyroid disease Prostate disease Easy bruising Blackout Chronic cough Former smoker History of irregular heartbeat History of echocardiogram Cardiology follow-up encounter Malignant melanoma COPD (chronic obstructive pulmonary disease) Essential hypertension Hyperlipidemia Open wound of left thigh Sepsis Abscess or cellulitis of thigh 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 Non-rheumatic mitral regurgitation Pulmonary hypertension NSTEMI (non-ST elevated myocardial infarction) CHF (congestive heart failure) Home Medications ?Medication ?Instructions ?Recorded ?Last Taken ?Type tamsulosin 0.4 mg capsule 0.4 mg PO DAILY PROSTATE 03/13/25 History albuterol sulfate 2.5 mg/3 mL 2.5 mg inhalation Q6H HI N 09/23/21 Unknown History (0.083 %) solution [...] mg (241.3 mg 400 mg PO BID 03/13/25 History magnesium) tablet potassium chloride 10 mEq 10 meq PO DAILY 03/14/25 History capsule,extended release Allergy/AdvReac Type Severity Reaction Status Date / Time amoxicillin (From Augmentin) Allergy Rash Verified 04/24/25 15:59 clavulanic acid (From Allergy Rash Verified 04/24/25 15:59 Augmentin) oxycodone AdvReac Intermediate OTHER Verified 04/24/25 15:59 Opioids - Morphine Analogues AdvReac Low blood Verified 04/24/25 15:59 pressure Family History Grandmother CAD (coronary artery disease) Father CAD (coronary artery disease) Surgical History History of external ear surgery History of coronary artery bypass surgery (~11/25/20) Social History Smoking Status: Former smoker Tobacco: How many years used: 20 alcohol intake: never substance use type: does not use caffeine: Yes Type: coffee Number of servings: 4 additional social history: pt denies vaping, pt denies marijuana, pt denies smoking pt uses ibuprofen as needed pt uses aspirin daily Review of Systems (Anesthesia) ROS Narrative System reviewed and no additional complaints, except as documented. 04/25/25 0647 <Electronically signed by Jose Alberto Mcgill MD > Date _ Jose Alberto Mcgill MD Cosigner Signature: Date CC: ~ Signed [facility] Work Phone: 1(430) 689-933507-11-2025 History and physical note [facility] Medical Records Department [address] [place] [id number] H&P Exam - Surgical 04/25/25 0812 MR#: [id number] Acct: [id number] Name: JENNIFER CUNNINGHAM Rep #:[id number] : 1940 84 From: Ernesto Mendes MD PCP: Dr. Douglas Ball MD Status:REG S MT Location: [address] HPI - General HPI Narrative JENNIFER CUNNINGHAM, is a 84 M who presents with melanoma on chest. Here for excisionof scar for local control of the primary tumor. [facility] Medical History Loss of hearing Edentulous Anxiety Thyroid disease Prostate disease Easy bruising Blackout Chronic cough Former smoker History of irregular heartbeat History of echocardiogram Cardiology follow-up encounter Malignant melanoma COPD (chronic obstructive pulmonary disease) Essential hypertension Hyperlipidemia Open wound of left thigh Sepsis Abscess or cellulitis of thigh 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 Non-rheumatic mitral regurgitation Pulmonary hypertension NSTEMI (non-ST elevated myocardial infarction) CHF (congestive heart failure) Home Medications ?Medication ?Instructions ?Recorded ?Last Taken ?Type tamsulosin 0.4 mg capsule 0.4 mg PO DAILY PROSTATE 04/24/25 History albuterol sulfate 2.5 mg/3 mL 2.5 mg inhalation Q6H HI N 09/23/21 Unknown History (0.083 %) solution for nebulization shortness of breat h or wheezing aspirin 81 mg tablet,delayed 81 mg PO DAILY #1 TAB 07/0604/21/25 Rx release furosemide 40 mg tablet 40 mg PO DAILY 04/04/2204/15 History metoprolol succinate 100 mg 50 mg PO BID 09/28/2204/15 History tablet,extended release 24 hr amlodipine 10 mg tablet 5 mg PO DAILY BP 12/21/23 History levothyroxine 125 mcg tablet 125 mcg PO DAILY 12/21/23 04/24/25 History atorvastatin 40 mg tablet 40 mg PO QHS for cholesterol #90 05/22/24 04/24/25 Rx TABLETS magnesium oxide 400 mg (241.3 mg 400 mg PO BID 5 04/24/25 History magnesium) tablet potassium chloride 10 mEq 10 meq PO DAILY 03/14/2508/09 History capsule,extended release cetirizine 10 mg tablet (24Hour 10 mg PO DAILY PRN all ergy symptoms 04/25/25 04/25/25 History Allergy) Allergy/AdvReac Type Severity Reaction Status Date / Time amoxicillin (From Augmentin) Allergy Rash Verified 04/25/25 06:51 clavulanic acid (From Allergy Rash Verified 04/25/25 06:51 Augmentin) oxycodone AdvReac Intermediate OTHER Verified 04/25/25 06:51 Opioids - Morphine Analogues AdvReac Low blood Verified 04/25/25 06:51 pressure Family History Grandmother CAD (coronary artery disease) Father CAD (coronary artery disease) Surgical History History of external ear surgery History of coronary artery bypass surgery (~11/25/20) Social History Smoking Status: Former smoker Tobacco: How many years used: 20 alcohol intake: never substance use type: does not use caffeine: Yes Type: coffee Number of servings: 4 additional social history: pt denies vaping, pt denies marijuana, pt denies smoking pt uses ibuprofen as needed pt uses aspirin daily Vital Signs Vital Signs Vital Signs: 04/25/25 06:53 04/25/25 06:53 Temperature 97.8 F Temperature Source Temporal Pulse Rate 97 Respiratory Rate 16 Respiratory Pattern Normal Blood Pressure 153/71 H Blood Pressure Mean 98 Blood Pressure Source Monitor Blood Pressure Position Semi-Fowlers Blood Pressure Location Right Arm Pulse Ox 96 Oxygen Delivery Method Room Air Weight Weight: 174 lb 2.643 oz Body Mass Index (BMI) 28.0 Physical Exam Narrative Right chest mass Right chest scar (marked with 2 cm margins for excision) Assessment & Plan Assessment/Plan (1) Malignant neoplasm of skin of chest: (2) Malignant melanoma: QUALIFIERS: Melanoma location: unspecified site Qualified Code(s): C43.9 - Malignant melanoma of skin, unspecified PLAN: Plan I talked to the patient extensively about the risks of surgery, including bleeding, infection, damage to surrounding structures, poor scaring, surgical site dehiscence and wound formation, need for wound care, need for repeat operations, failure to obtain the desired result, DVT/PE, and the risks of anesthesia including , including stroke (from low blood pressure/ischemia or clot). The benefits and alternatives of this surgery were also discussed. All of their questions were answered, and they agreed to proceed with surgery. I talked to his oncologist. Our plan is for control today of the primary melanoma with marginal control to attempt to clear margins (wide local excision). The team will radiate the chest metastasis (bleeding large mass). Patient and his family in agreement (I discussed thoroughly ) 04/25/25 0815 Cosigner Signature (if applicable): CC: Dr. Ernesto Mendes MD; Dr. Douglas Ball MD~ Signed [facility]07-11-2025 Consult note [facility] Medical Records Department [address] [place] [address] Pre-Anesthesia Evaluation 04/25/2546 MR#: [id number] Acct: [id number] Name: JENNIFER CUNNINGHAM Rep #:[id number] : 1940 84 From: Jose Alberto Mcgill MD PCP: Dr. Douglas Ball MD Status:REG S DC Y Race: C Location: [place] [address] ASA Classification* ASA Classification ASA Classification: 3 Assessment & Plan Anesthesia* Anesthesia Assessment Anesthesia Assessment: Discussed sedation and/or anesthesia options, risks, benefits, and alternatives with patient/parents/legal guardian/POA. Questions invited. The patient/parents/legal guardian/POA seems to understand and agrees to proceedwith anesthesia plan. Reviewed the physical assessment, medical history, allergy history and patient home medications list prior to surgery/procedure/anesthetic and documented any changes. Performed airway and anesthesia risk assessments. Anesthesia Type Anesthesia Type: MAC Anesthesia Focused Assessment* Airway Assessment Mouth opens: >3 cm Mallampati Score: II Labs Anesthesia Preop lab: CBC WBC 9.3 K/mm3 (4.4-11.0) 03/19/25 10:03/19/25 RBC 4.07 M/mm3 (4.6-6.2) L 03/19/25 10:03/19/25 Hgb 12.2 g/dL (13.0-16.5) L 03/19/25 10: 5 Hct 37.0 % (40-54) L 03/19/25 10:03/19/25 Plt Count 180 K/mm3 (150-450) 03/19/25 10:03/19/25 CHEMISTRY Potassium 4.3 mmol/L (3.3-5.1) 03/19/25 10:03/19/25 Sodium 139 mmol/L (133-145) 03/19/25 10:03/19/25 Magnesium 2.0 mg/dL (1.6-2.6) 09/15/20 15:00 09/15/20 Phosphorus 3.1 mg/dL (2.5-4.9) 09/15/20 15:00 09/15/20 BUN 13 mg/dL (4-19) 03/19/25 10:03/19/25 Creatinine 0.99 mg/dL (0.70-1.20) 03/19/25 10:03/19/25 Glucose 115 mg/dL (70-99) H 03/19/25 10:03/19/25 TSH 1.880 uIU/mL (0.300-4.200) 03/19/25 10: 0602/07 COAG PT 13.8 SECONDS (11.7-14.9) 12/28/20 09:35 Pre-Assessment Diagnosis/Proposed Procedure Planned Operative Procedure(s): (R) Excision for margins right chest melanoma( primary lesion with primary closure Anesthesia History Anesthesia History - client executive: Anesthesia History - client executive Hx Hospitalization No 04/24/25 16:02 Any Problems With Anesthesia No 04/24/25 16:02 Cholinesterase deficiency No 04/24/25 16:02 You/Your Family Experience No 04/24/25 16:02 fever (hyperthermia) with Relationship Recent Exposure to Contagious Disease Does patient have nerve No 04/24/25 16:02 stimulator Patient instructed to have device shut off --Does patient have Pacemaker or ICD? When Was Last Pacemaker Check QUESTION #4 FULL TEXT: You/Your Family Experience fever (hyperthermia) with Anesthesia Last Oral Intake Last Oral intake: Last Oral Intake NPO since Meds taken in AM with sips of water? Meds patient instructed to take am of surgery PONV PONV - client executive: PONV - client executive Female No 04/24/25 16:02 HX of Motion Sickness No 04/24/25 16:02 HX of N/V After Surgery No 04/24/25 16:02 Non-Smoker Yes 04/24/25 16:02 Duration of Surgery greater Yes 04/24/25 16:02 than 60 minutes Number of Risk Factors 2 04/24/25 16:02 PONV Score Moderate Risk 04/24/25 16:02 Height & Weight Height & Weight: Anesthesia: Height & Weight Height 5 ft 8 in 04/16/25 15:56 Respiratory Assessment Respiratory Assessment - client executive: Respiratory Tract Infection Hx - client executive Hx Respiratory Tract Infection No 04/24/25 16:02 STOP Sleep Apnea STOP Sleep Apnea - client executive: STOP Sleep Apnea - client executive Hx Hypertension Yes: PER PT, CONTROLLED ON 04/24/25 16:02 MEDS Hx Sleep Apnea No 04/24/25 16:02 CPAP BIPAP Do you snore loudly (louder Yes 04/24/25 16:02 than talking or can be heard Do you often feel tired/ No 04/24/25 16:02 fatigued/ sleepy during daytime? Has anyone observed you stop No 04/24/25 16:02 breathing during sleep? STOP Results Positive 04/24/25 16:02 QUESTION #5 FULL TEXT : Do you snore loudly (louder than talking or can be heard through closeddoors)? 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 Specify any problems Hx of Preganancy in last 3 N/A 04/24/25 16:02 Months Nurse Filling Out Transfusion MGRIFFITH 04/24/25 16:02 & Questions: Date: 04/24/25 04/24/25 16:02 Time: 16:04 04/24/25 16:02 Patient unable to answer at this time (ie. confused, unrespo /Reproduction History /Reproductive History - client executive: /Reproductive Hx- client executive Hx Now Gestational Age (in weeks): EDC: Hx Hx Para Hx Section SAB Active Medications Active Medications: Current Medications Generic Name Dose Route Start Last Admin Trade Name Freq PRN Reason Stop Dose Admin Clindamycin Phosphate 900 mg in 50 mls @ 75 mls/hr 04/25/25 09:00 Cleocin IV 04/25/25 09:39 INTRAOP ONE Lactated Ringer's 1,000 mls @ 15 mls/hr 04/25/25 06:45 IV .Q48H GAGAN PFSH Medical History Loss of hearing Edentulous Anxiety Thyroid disease Prostate disease Easy bruising Blackout Chronic cough Former smoker History of irregular heartbeat History of echocardiogram Cardiology follow-up encounter Malignant melanoma COPD (chronic obstructive pulmonary disease) Essential hypertension Hyperlipidemia Open wound of left thigh Sepsis Abscess or cellulitis of thigh 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 Non-rheumatic mitral regurgitation Pulmonary hypertension NSTEMI (non-ST elevated myocardial infarction) CHF (congestive heart failure) Home Medications ?Medication ?Instructions ?Recorded ?Last Taken ?Type tamsulosin 0.4 mg capsule 0.4 mg PO DAILY PROSTATE 03/13/25 History albuterol sulfate 2.5 mg/3 mL 2.5 mg inhalation Q6H HI N 09/23/21 Unknown History (0.083 %) solution [...] mg (241.3 mg 400 mg PO BID 03/13/25 History magnesium) tablet potassium chloride 10 mEq 10 meq PO DAILY 03/14/25 History capsule,extended release Allergy/AdvReac Type Severity Reaction Status Date / Time amoxicillin (From Augmentin) Allergy Rash Verified 04/24/25 15:59 clavulanic acid (From Allergy Rash Verified 04/24/25 15:59 Augmentin) oxycodone AdvReac Intermediate OTHER Verified 04/24/25 15:59 Opioids - Morphine Analogues AdvReac Low blood Verified 04/24/25 15:59 pressure Family History Grandmother CAD (coronary artery disease) Father CAD (coronary artery disease) Surgical History History of external ear surgery History of coronary artery bypass surgery (~11/25/20) Social History Smoking Status: Former smoker Tobacco: How many years used: 20 alcohol intake: never substance use type: does not use caffeine: Yes Type: coffee Number of servings: 4 additional social history: pt denies vaping, pt denies marijuana, pt denies smoking pt uses ibuprofen as needed pt uses aspirin daily Review of Systems (Anesthesia) ROS Narrative System reviewed and no additional complaints, except as documented. 04/25/25 0647 > Date _ Jose Alberto Mcgill MD Cosigner Signature: Date CC: ~ Signed [facility]07-01-2025 Progress note Author Patricia Beckham [facility] Note Date/Time April 15, 2025 12:46 pm [facility] [address] [place] [address] OFFICE VISIT Date of Service: 04/15/25 1148 MR#: [id number] Acct: [id number] Name: JENNIFER CUNNINGHAM Rep #: [id number] : 1940 From: Patricia dior MD Age/Sex: 84/M Location: [facility] Status: Signed HPI Subjective Date of Service [...] consultation report. The case was examined at [facility] (#[id number]) and the following diagnosis was rendered. [...] Poli level IV, Breslow thickness 5 mm, [id number] SYNOPTIC REPORT TUMOR: Procedure: excision Specimen Laterality: [...] submitted specimen(s) pM1: Evidence of distant metastasis ([id number]) _X_ pM1a: Distant metastasis in skin (including subcutaneous tissues), soft tissues including muscle and / or non-regional lymph node(s) ___ pM1b: Distant metastasis to lung with or without M1a sites of disease ___ pM1c: Distant metastasis to non-CIRCULAR KNITTER HELPER visceral sites with or without M1a or M1b sites of disease ___ pM1d: Distant metastasis to CIRCULAR KNITTER HELPER with or without M1a, M1b, or M1c [...] Amenable to ultrasound-guided needle biopsy. [facility] Medical History (Updated 04/15/25 @ 13:[address] Patricia Beckham MD) Malignant melanoma COPD (chronic obstructive pulmonary disease) Essential hypertension Hyperlipidemia Open wound of left thigh Sepsis Abscess or cellulitis of thigh 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 Non-rheumatic mitral [...] 2.5 mg/3 mL 2.5 mg inhalation Q6H HI N 09/23/21 04/15/25 History (0.083 %) solution [...] impression and recommendations discussed. Patricia Beckham MD [employer] Supervisor, [facility] Divisions of Medical Oncology & Hematology Department of Internal Medicine [place] [phone] This note was generated using a voice [...] rush MD> Date _ Patricia Beckham MD Cosigner Signature: Date (if applicable) CC: ~ [facility] Work Phone: 1(406) 846-193107-01-2025 Progress [facility] [place] [address] OFFICE VISIT Date of Service: 04/15/25 1148 MR#: [id number] Acct: [id number] Name: JENNIFER CUNNINGHAM Rep #: [id number] : 1940 From: Patricia dior MD Age/Sex: 84/M Location: [facility] Status: Signed HPI Subjective Date of Service [...] consultation report. The case was examined at [facility] (#[id number]) and the following diagnosis was rendered. [...] Poli level IV, Breslow thickness 5 mm, [id number] SYNOPTIC REPORT TUMOR: Procedure: excision Specimen Laterality: [...] submitted specimen(s) pM1: Evidence of distant metastasis ([id number]) _X_ pM1a: Distant metastasis in skin (including subcutaneous tissues), soft tissues including muscle and / or non-regional lymph node(s) ___ pM1b: Distant metastasis to lung with or without M1a sites of disease ___ pM1c: Distant metastasis to non-CIRCULAR KNITTER HELPER visceral sites with or without M1a or M1b sites of disease ___ pM1d: Distant metastasis to CIRCULAR KNITTER HELPER with or without M1a, M1b, or M1c [...] Amenable to ultrasound-guided needle biopsy. [facility] Medical History (Updated 04/15/25 @ 13:[address] Patricia Beckham MD) Malignant melanoma COPD (chronic obstructive pulmonary disease) Essential hypertension Hyperlipidemia Open wound of left thigh Sepsis Abscess or cellulitis of thigh 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 Non-rheumatic mitral [...] 2.5 mg/3 mL 2.5 mg inhalation Q6H HI N 09/23/21 04/15/25 History (0.083 %) solution [...] impression and recommendations discussed. Patricia Beckham MD [employer] Supervisor, [facility] Divisions of Medical Oncology & Hematology Department of Internal Medicine [place] [phone] This note was generated using a voice [...] manuel CULLEN> Date _ Patricia Beckham MD Cosign Signature: Date (if applicable) CC: ~ [id number] [facility] [address] [place] [address], [address] [place] [id number] OFFICE VISIT Date of Service: 04/09/25 MR#: [id number] Acct: [id number] Name: JENNIFER CUNNINGHAM Rep #: [id number] : 1940 Provider: Dr. Keith Mendes MD Age/Sex: 84/M Location: [facility] Status: Signed Intake Vital Signs [...] year?: No Nurse's Note: bupivicaine 0.2 % [facility] 4076-1071-53 lot [id number]/08 and lidocaine 1% w epi [facility] 3359-0730-37 lot [id number] exp [facility] Medical History COPD (chronic obstructive pulmonary disease) Essential hypertension Hyperlipidemia Open wound of left thigh Sepsis Abscess or cellulitis of thigh 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 Non-rheumatic mitral [...] lesion, and then referred the patient to me. Biopsy results from 14 Mar 2025 are [...] prior to signature. Lidocaine 1% w/ epi [id number] lot [id number] exp CURRENT ENCOUNTER, 09 April 2025: Patient here for a biopsy of abdominal lesion at the request of Dr. Holland. Final pathology stillpending with refards to the chest mass. Band aid was over this chest lesion last appointment. 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 Exam Details [...] 16:24 Coding Level of Care Code Attention Jeff Diagnoses Malignant neoplasm of skin of chest C44.509 Neoplasm of uncertain behavior of skin D48.5 Comment CPT: 41896, 76676 Assessment and Plan (No Qualifiers) Assessment and [...] hospital and would like to stay in [place]. We can discuss options for resection at [place] once the lesion is better characterized, but [...] Excision 4.2 x 2.2 cm lesion, CPT: 19061 2) Intermediate closure 6 cm abdominal lesion excision wound, CPT: 69881 Procedure details Skin lesion was marked with [...] in the past year?: No 04/09/25 1646 MD> Date _ Ernesto Mendes MD Cosigner Signature: Date (if applicable) CC: ~ [facility]06-25-2025 Progress note Author Ernesto Mendes [facility] Note Date/Time April 09, 2025 4:46 pm [facility] [address] [place] [address], [address] [place] [address] OFFICE VISIT Date of Service: 04/09/25 MR#: [id number] Acct: [id number] Name: JENNIFER CUNNINGHAM Rep #: [id number] : 1940 Provider: Dr. 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 Biopsy results from 14 Mar 2025 are [...] prior to signature. Lidocaine 1% w/ epi [id number] lot [id number] exp CURRENT ENCOUNTER, 09 April 2025: Patient here for a biopsy of abdominal lesion at the request of Dr. Holland. Final pathology still pending with refards to the chest mass. Band aid was over this chest lesion last appointment. 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 We can discuss options for resection at [place] once the lesion is better characterized, but [...] Excision 4.2 x 2.2 cm lesion, CPT: 05224 2) Intermediate closure 6 cm abdominal lesion excision wound, CPT: 04329 Procedure details Skin lesion was marked with [...] fallen in the past year?: No 04/09/25 0028 <Electronically signed by Ernesto Mendes MD> Date _ Ernesto Mnedes MD Cosigner Signature: Date (if applicable) CC: ~ [facility] Work Phone: 1(918) 446-653906-18-2025 Radiology Diagnostic study note [facility] Imaging Services [address] [place] [address] Chest WITH Contrast MR#: [id number] Acct: [id number] Name: JENNIFER CUNNINGHAM Rep #: [id number] : 1940 M 84 From: Pet er Peer DO PCP: Dr. Douglas Ball MD Status: REG C MEÑO Study:Chest WITH Contrast Date of Exam: 04/02/25 Exam# [id number] Ordering Dr: Mis Mendes MD PROCEDURE: CHEST [...] Amenable to ultrasound-guided needle biopsy. Reading [facility] CC: Dr. Ernesto Mendes MD; Dr. Douglas Ball MD ~ Rn Birthing: Signed [facility]06-16-2025 Evaluation note* Diagnosis Onset Date Resolution Status Admit Date Malignant neoplasm of skin o f chest acute March 31, 2025 3:39pm [facility] [employer] Work Phone: 1(827) 530-326606-16-2025 Evaluation note* Diagnosis Onset Date Resolution Status Admit Date Malignant neoplasm of skin o f chest acute March 31, 2025 3:39pm Malignant neoplasm of skin o f chest acute April 07, 2025 8:47am [facility] Work Phone: 1([phone]) 680-522506-16-2025 Evaluation note* Diagnosis Onset Date Resolution Status Admit Date Malignant neoplasm of skin o f chest acute March 31, 2025 3:39pm Malignant neoplasm of skin o f chest acute April 07, 2025 8:47am Malignant neoplasm of skin o f chest acute April 09, 2025 3:32pm Neoplasm of uncertain behavi or of skin acute April 09, 2025 3:32pm [facility] Work Phone: 1(247) 537-726606-16-2025 Evaluation note* Diagnosis Onset Date Resolution Status [...] chest acute April 15, 2025 1 1:43am [facility] Work Phone: 1(266) 717-173306-16-2025 Evaluation note* Diagnosis Onset Date Resolution Status [...] chest acute April 15, 2025 1 1:43am Malignant melanoma acute April 162024 3:45pm Malignant melanoma acute April 152024 6:31am Malignant neoplasm of skin o f chest acute April 25, 2025 6:31am [facility] Work Phone: 1(960) 314-888606-16-2025 Evaluation note* Diagnosis Onset Date Resolution Status [...] chest acute April 15, 2025 1 1:43am Malignant melanoma acute April 162024 3:45pm Malignant melanoma acute April 152024 6:31am Malignant neoplasm of skin o f chest acute April 25, 2025 6:31am Malignant neoplasm of skin o f chest acute April 29, 2025 10:57am Malignant melanoma acute April 152024 11:12am Malignant neoplasm of skin o f chest acute April 29, 2025 11:12am [facility] [employer] Work Phone: 1(197) 411-529605-30-2025 Consult note [facility] Medical Records Department [address] [place] [address] Consultation - Surgical 03/14/25 1256 MR#: [id number] Acct: [id number] Name: JENNIFER CUNNINGHAM Rep #:[id number] : 1940 84 From: Zoran Mojica MD [...] for Consultation: Right chest mass HPI Narrative: JENNIFER CUNNINGHAM, is a 84 M who presents [...] malignancy is of high concern. [facility] Medical History (Updated 03/14/25 @ 12:[address] 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 Douglas Ball MD~ Signed [facility]05-30-2025 Discharge summary [facility] Medical Records Department [address] [place] [address] Emergency Department Summary 03/14/25 MR#: [id number] Acct: [id number] Name: JENNIFER CUNNINGHAM Rep #:[id number] : 1940 84 From: Kb Yañez MD [...] to the ER to have it evaluated. [facility] Medical History (Updated 03/14/25 @ 12:[address] 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 Management Discussion w/another healthcare provider: [facility] (Surgery Dr. Mojica) Discharge Plan Triage Chief [...] Active Staff] - 1-2 Weeks Print Language: Turkmen Disposition Disposition: Home, Self Care What to do if you have Problems For any increased pain, shortness of breath, bleeding, nausea or vomiting, chestpain, or any unexpected problems, contact your Primary Care Provider. Call [facility] ([phone]) or report tothe closest Emergency Room. Call 911 if necessary. 03/14/25 1251 Cosigner Signature (if applicable): CC: Dr. Douglas Ball MD ~ Signed [facility]03-17-2021 NoteHNO ID: [id number] Author: Antonieta Thorpe Service: ? Author Type: Nurse Practitioner Type: [...] Contrast IMPRESSION: Small sliding hiatal hernia without reflux.[facility]03-01-2021 NoteHNO ID: [id number] Author: Mariya Marroquin (Pa) Service: ? Author Type: Physician Wet Machine Tender Type: Progress Notes Filed: 12/14/2020 8:41 AM Note Text: This note was created using moka5. Subjective Jennifer Ibrahim is a 80 year old male. [...] the ER. Patient agreeable with plan. 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 [facility] Medical History (Updated 03/14/25 @ 12:[address] 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 Douglas Ball MD~ Signed [facility] Work Phone: Consult note Author Mann Collins [facility] Note Date/Time April 25, 2025 10:0 4am [facility] Medical Records Department [address] [place] [address] Anesthesia Postop Eval I 04/25/25 1003 MR#: [id number] Acct: [id number] Name: JENNIFER CUNNINGHAM Rep #:[id number] : 1940 84 From: [place] [employer] PCP: Dr. Douglas Ball MD Status:REG S DC Y Race: C Location: [place] [address] Anesthesia: Postop Eval I Current Vital Signs Temperature: 97.2 F Pulse Rate: 90 Blood Pressure: 123/66 Respiratory Rate: 20 Pulse Ox: 93 Oxygen Delivery Method: Room Air Assessment Airway patent: Yes Spontaneous unlabored respirations: Yes Mental status: Awake and Calm nausea: No Vomiting: No Anesthesia Complication: No Fluid Hydration Crystalloid volume administer (ml): 1,000 Total IV fluid infused: 1,000 Progress Note Anesthesia document: Postop Eval 1 completed: Yes 04/25/25 1004 <Electronically signed by Mann chaudhry CRNA> Date _ Mann Collins CRNA Cosigner Signature: Date CC: ~ Signed [facility] Work Phone: Discharge summary Author Kb Yañez [facility] Note Date/Time March 14, 2025 12:58 pm [facility] Medical Records Department [address] [place] [address] Emergency Department Summary 03/14/25 MR#: [id number] Acct: [id number] Name: JENNIFER CUNNINGHAM Rep #:[id number] : 1940 84 From: Kb Yañez MD [...] to the ER to have it evaluated. [facility] Medical History (Updated 03/14/25 @ 12:[address] Kb Yañez MD) COPD (chronic obstructive pulmonary disease) Essential hypertension Hyperlipidemia Open wound of left thigh Sepsis Abscess or cellulitis of thigh 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 Non-rheumatic mitral regurgitation Pulmonary hypertension NSTEMI (non-ST elevated myocardial infarction) CHF (congestive heart failure) Home Medications ?Medication ?Instructions ?Recorded ?Last Taken ?Type tamsulosin 0.4 mg capsule 0.4 mg PO DAILY PROSTATE 03/13/25 History albuterol sulfate 2.5 mg/3 mL 2.5 mg inhalation Q6H HI N 09/23/21 Unknown History (0.083 %) solution for nebulization shortness of breat h or wheezing aspirin 81 mg tablet,delayed 81 mg PO DAILY #1 TAB 07/0603/13/25 Rx release furosemide 40 mg tablet 40 mg PO DAILY 04/04/22/07/10 History metoprolol succinate 100 mg 50 mg [...] the patient. Management Discussion w/another healthcare provider: [facility] (Surgery Dr. Mojica) Discharge Plan Triage Chief [...] Active Staff] - 1-2 Weeks Print Language: Turkmen Disposition Disposition: Home, Self Care What to do if you have Problems For any increased pain, shortness of breath, bleeding, nausea or vomiting, chestpain, or any unexpected problems, contact your Primary Care Provider. Call [facility] ([phone]) or report to the closest Emergency Room. Call 911 if necessary. 03/14/25 1258 <Electronically signed by Kb Yañez MD> Cosigner Signature (if applicable): CC: Dr. Douglas Ball MD ~ Signed [facility] Work Phone: Evaluation noteNo assessment information available [facility] Work Phone: Hospital Discharge instructionsAmbulatory Orders* General Surgery Location: None Selected [facility] Work Phone: Hospital Discharge instructionsAmbulatory Orders* Home Health Location: None Selected * Palliative Medicine Location: None Selected [facility] Work Phone: Hospital Discharge instructionsAdditional Instructions Operations Performed: chest mass excision Instructions for My Care at Home or Healthcare Facility The following instructions will help you know what to expect in the days following surgery. These are general instructions. Your surgeon and therapist may give you special instructions, which vary to some degree based on your specific procedure -- follow those as directed. Do not, however, hesitate to call if you have any questions or concerns. Splint Care/Dressing Care/Wound Care Dressings - You may have a dressing over the operative site. If the dressing feels too tight after you get home, it is ok to gently pull on the dressing to stretch it out/loosen it. OK to get it wet Avoid smoking or other tobacco products. Smoking tobacco impairs wound healing and increases the risks of post-operative complications. Tape over your incisions (if present) will fall off on its own Activities For the first 4 weeks after surgery, try to balance your activity, allowing time for rest. Avoid lifting, pushing, or pulling anything over [address] or operate heavy machinery within 24 hrs of surgery or while taking narcotic pain medication. Pain Control/Medications If you received an anesthetic block, your hand or arm may be numb for several hours. You will be discharged to home with medications, including an oral pain medication (analgesic). Rest and elevation are still one of the most important factors for pain control. Take your pain medication as needed, but do not wait for the pain to become out of control. For severe pain, you may take prescription pain medication as directed, but please note that this may also contain Tylenol (e.g. Percocet). Do not take more than 4000mg of Tylenol (acetaminophen) from all sources daily. Pain medication may cause some lethargy, nausea, and or constipation. You should not drive/operate dangerous machinery while taking these medications. If these or other symptoms become significantly problematic, please your surgeon's office. If prescribed oral antibiotics (Keflex, Clindamycin, or others), please take prescription for full duration as instructed. You should not have any pills remaining once completed (refills are written for your convenience should the course need to be extended, but generally they are not required). Diet (what I can eat): Resume normal diet Follow up You will be seen (most likely) 1 to 2 weeks after surgery depending on the procedure. Follow-up appointment reminders: (A list of any scheduled appointments is at the end of this document) At your earliest convenience, please call [phone] to confirm/schedule a follow-up appointment with me in clinic. When to call your surgeon: If any signs of surgical site infection develop: redness, pus, pain, increased swelling or foul odor at the incision site, fever, cold and clammy skin, or confusion. Consistent temperature above 101 F (38.3 C). The affected area gets swollen or much more painful. You have excessive bleeding from surgical site (soaking through). If you experience difficulty breathing and/or shortness of breath, seek immediate medical attention. If experiencing any of the above complications or if you have any questions, call [phone] Work Phone: Reason for referral (narrative)No reason for referral information availableWAshtabula General Hospital Work Phone: Summary Purpose Family History No Family History Records Found Relationship Condition Age at Onset Recorded Date/T gwen grandmother Coronary artery disease Unknown father Coronary artery disease Unknown Advance Directives No Advanced Directives Records Found Advance Directive Response Recorded Date/ Time Advance Directives Yes November 17, 2020 10:05am Living Will No December 28, 2020 2:06pm Power of Heavy Coil Winder No December 28 2:06pm Advance Directive Response Recorded Date/ Time Advance Directives Yes November 17, 2020 9:05am Living Will No December 28, 2020 1:06pm Power of Heavy Coil Winder No December 28 1:06pm Advance Directive Response Recorded Date/ Time Do you have a Healthcare Power of Heavy Coil Winder? Yes March 14, 2025 10:35am Advance Directives Yes November 17, 2020 10:05am Advance Directive Response Recorded Date/ Time Do you have a Healthcare Power of Heavy Coil Winder? Yes March 14, 2025 10:35am Do you have a Healthcare Power of Heavy Coil Winder? No April 24, 2025 4:02pm Advance Directives Yes November 17, 2020 10:05am [...] Neoplasm of uncertain behavior of skin J 2024 3:32pm Chief Complaint Admit Date abscess [...] Neoplasm of uncertain behavior of skin J une 2024 3:32pm Malignant melanoma April 15, 2025 [...] post op April 16, 2025 3:45p m Chief Complaint Admit Date abscess March 14, [...] post op April 16, 2025 3:45p m PI MODIFIER April 22, 2025 8:40a m Reason for Visit Admit Date Malignant neoplasm of skin of chest March 31, 2025 3:39pm Malignant neoplasm of skin of chest April 07, 2025 8:47am Malignant neoplasm of skin of chest April 09, 2025 3:32pm Neoplasm of uncertain behavior of skin J une 2024 3:32pm Malignant melanoma April 15, 2025 11:43 am Malignant neoplasm of skin of chest April 15, 2025 11:43am Malignant melanoma April 16, 2025 3:45p m Malignant melanoma April 25, 2025 6:31 am Malignant neoplasm of skin of chest April 25, 2025 6:31am Chief Complaint Admit Date abscess March 14, [...] post op April 16, 2025 3:45p m PI MODIFIER April 22, 2025 8:40a m CONSULT - SKIN CA April 29, 2025 10:5 7am REVIEW PET April 29, 2025 11:1 2am Reason for Visit Admit Date Malignant neoplasm of skin of chest March 31, 2025 3:39pm Malignant neoplasm of skin of chest April 07, 2025 8:47am Malignant neoplasm of skin of chest April 09, 2025 3:32pm Neoplasm of uncertain behavior of skin J 2024 3:32pm Malignant melanoma April 15, 2025 11:43 am Malignant neoplasm of skin of chest April 15, 2025 11:43am Malignant melanoma April 16, 2025 3:45p m Malignant melanoma April 25, 2025 6:31 am Malignant neoplasm of skin of chest April 25, 2025 6:31am Malignant neoplasm of skin of chest April 29, 2025 10:57am Malignant melanoma April 29, 2025 11:1 2am Malignant neoplasm of skin of chest April 29, 2025 11:12am Chief Complaint Admit Date abscess March 14, [...] April 15, 2025 11:43 am post op Marian 2nd, 2025 3:45p m PI MODIFIER April 22, 2025 8:40a m CONSULT - SKIN CA April 29, 2025 10:5 7am REVIEW PET April 29, 2025 11:1 2am 1 W FU May 02, 2025 1:30 pm Additional Source Comments (unrecognized sect ion and content) No Status Records FoundNo Status Records FoundNo Status Records Found INFORMATION SOURCE (unrecogn ized section and content) DATE CREATED AUTHOR 11/13/2021 [facility] DATE CREATED AUTHOR AUTHOR'S ORGANIZ ATION 04/17/2025 [place] DATE CREATED AUTHOR AUTHOR'S ORGANIZ ATION 05/03/2025 [facility] Goals (unrecognized section and content) [...] Care Provider, Referring Provider Active Chicho Cohn SCREENING TECH, SCREENING TECH-C Attending Provider Active Team Status: Active Member [...] April 16, 2025 End: April 16, 2025 Team Status: Active Member Role/Relationship Status Dates Dr. Douglas Ball MD Primary Care Provider Active Start: April 22, 2025 Dr. Patricia Beckham MD Attending Provider Active Start: April 22, 2025 Dr. Patricia Beckham MD Referring Provider Active Start: April 22, 2025 Team Status: Inactive Member Role/Relationship Status Dates Dr. Douglas Ball MD Primary Care Provider Active Start: April 25, 2025 End: April 25, 2025 Dr. Ernesto Mendes MD Attending Provider Active Start: April 25, 2025 End: April 25, 2025 Dr. Ernesto eMndes MD Referring Provider Active Start: April 25, 2025 End: April 25, 2025 Team Status: Active Member Role/Relationship Status Dates Dr. Douglas Ball MD Primary Care Provider Active Start: April 25, 2025 Dr. Ernesto Mendes MD Attending Provider Active Start: April 25, 2025 Dr. Ernesto Mendes MD Referring Provider Active Start: April 25, 2025 Dr. Ernesto Mendes MD Other Provider Active Star t: April 25, 2025 Team Status: Inactive Member Role/Relationship Status Dates Dr. Douglas Ball MD Primary Care Provider Active Start: April 29, 2025 End: April 29, 2025 Dr. Douglas Ball MD Referring Provider Active Start: April 29, 2025 End: April 29, 2025 Dr. Sam Méndez DO Attending Provider Active Start: April 29, 2025 End: April 29, 2025 Team Status: Active Member Role/Relationship Status Dates Dr. Douglas Ball MD Primary Care Provider Active Start: April 29, 2025 Dr. Douglas Ball MD Referring Provider Active Start: April 29, 2025 Dr. Patricia Beckham MD Attending Provider Active Start: April 29, 2025 Team Status: Inactive Member Role/Relationship Status Dates Dr. Douglas Ball MD Primary Care Provider Active Start: April 29, 2025 End: April 29, 2025 Dr. Douglas Ball MD Referring Provider Active Start: April 29, 2025 End: April 29, 2025 Dr. Patricia Beckham MD Attending Provider Active Start: April 29, 2025 End: April 29, 2025 Team Status: Active Member Role/Relationship Status Dates Dr. Douglas Ball MD Primary Care Provider Active Start: April 30, 2025 Dr. Sam Méndez DO Attending Provider Active Start: April 30, 2025 Team Status: Inactive Member Role/Relationship Status Dates Dr. Douglas Ball MD Primary Care Provider Active Start: May 02, 2025 End: May 02, 2025 Dr. Douglas Ball MD Referring Provider Active Start: May 02, 2025 End: May 02, 2025 Dr. Ernesto Mendes MD Attending Provider Active Start: May 02, 2025 End: May 02, 2025 FOR RECORDS PERTAINING TO PATIENTS WHO [...] BE BASED ON THE PRIMARY CLINICAL RECORDS. [employer] provides no warranty or guarantee of the accuracy or completeness of information in this document.
== END | disposition home or self-care (01) ==
LOC: LABSPEC 08:26
PROVIDERS: PCP Family Medicine Geriatric Medicine; Referring Provider Surgery Plastic and Reconstructive Surgery; Visit Provider Surgery Plastic and Reconstructive Surgery
DX: Z00.00 Encounter for general adult medical examination without abnormal findings (principal)

== ENCOUNTER 2025-05-12 13:30 | Outpatient (RCR) | payer MEDICARE, OTHER, SELFPAY ==
[2020-12-23 09:20] VITALS: BMI 29.0
[2025-05-05 14:45] VITALS: BP 134/80; PULSE 94; RESP 14; TEMP 36.7
--- NOTE | 2025-05-06 07:33 | PCM.WC.HP ---
History of Present Illness Date of Service: 05/05/25 Chief Complaint: Left medial thigh wound after I&D in ED History of Wound: Tom Patel is a delightful 84-year-old male with history of metastatic melanoma from a primary lesion on his right lower chest which was excised for wide local excision on 25 April 2025. He unfortunately developed an abscess postop week 1 which was drained on 02 May 2025 and packed. He was placed on clindamycin. Cultures growing Enterococcus faecalis and E. coli. Current encounter, 05 May 2025: Patient doing better today and feels well. No fevers or chills. Reports no purulent drainage. Reports compliance with packing the wound. [facility] Medical History Loss of hearing Edentulous Anxiety Thyroid disease Prostate disease Easy bruising Blackout Chronic cough Former smoker History of irregular heartbeat History of echocardiogram Cardiology follow-up encounter Malignant melanoma COPD (chronic obstructive pulmonary disease) Essential hypertension Hyperlipidemia Open wound of left thigh Sepsis Abscess or cellulitis of thigh Atherosclerotic heart disease of [place] coronary artery without angina pectoris Non-rheumatic mitral regurgitation Pulmonary hypertension NSTEMI (non-ST elevated myocardial infarction) CHF (congestive heart failure) Home Medications ?Medication ?Instructions ?Recorded ?Last Taken ?Type tamsulosin 0.4 mg capsule 0.4 mg PO DAILY PROSTATE 11/30/20 04/24/25 History albuterol sulfate 2.5 mg/3 mL 2.5 mg inhalation Q6H PRN 09/23/21 Unknown History (0.083 %) solution for nebulization shortness of breath or wheezing aspirin 81 mg tablet,delayed 81 mg PO DAILY #1 TAB 09/23/21 04/21/25 Rx release furosemide 40 mg tablet 40 mg PO DAILY 04/04/22 04/24/25 History metoprolol succinate 100 mg 50 mg PO BID 09/28/22 04/24/25 History tablet,extended release 24 hr amlodipine 10 mg tablet 5 mg PO DAILY BP 12/21/23 04/24/25 History levothyroxine 125 mcg tablet 125 mcg PO DAILY 12/21/23 04/24/25 History magnesium oxide 400 mg (241.3 mg 400 mg PO BID 03/14/25 04/24/25 History magnesium) tablet potassium chloride 10 mEq 10 meq PO DAILY 03/14/25 04/24/25 History capsule,extended release cetirizine 10 mg tablet (24Hour 10 mg PO DAILY PRN allergy symptoms 04/25/25 04/25/25 History Allergy) oxycodone 5 mg tablet 5 mg PO BID PRN pain 5 days #10 04/25/25 Unknown Rx tabs atorvastatin 40 mg tablet 40 mg PO QHS for cholesterol #90 05/05/25 Unknown Rx TABLETS ciprofloxacin HCl 500 mg tablet 500 mg PO BID 7 days #14 tabs 05/05/25 Unknown Rx (Cipro) linezolid 600 mg tablet 600 mg PO BID 1 week #14 tabs 05/05/25 Unknown Rx Allergy/AdvReac Type Severity Reaction Status Date / Time amoxicillin (From Augmentin) Allergy Rash Verified 05/02/25 13:50 clavulanic acid (From Allergy Rash Verified 05/02/25 13:50 Augmentin) oxycodone AdvReac Intermediate OTHER Verified 05/02/25 13:50 Opioids - Morphine Analogues AdvReac Low blood Verified 05/02/25 13:50 pressure Family History Grandmother CAD (coronary artery disease) Father CAD (coronary artery disease) Surgical History History of external ear surgery History of coronary artery bypass surgery (~11/25/20) Social History Smoking Status: Former smoker Tobacco: How many years used: 20 alcohol intake: never substance use type: does not use caffeine: Yes Type: coffee Number of servings: 4 additional social history: pt denies vaping, pt denies marijuana, pt denies smoking pt uses ibuprofen as needed pt uses aspirin daily Vital Signs Vital Signs Vital Signs: 05/05/25 14:45 Temperature 98.1 F Temperature Source Temporal Pulse Rate 94 Respiratory Rate 14 Blood Pressure 134/80 H Blood Pressure Mean 98 Blood Pressure Source Monitor Blood Pressure Position Sitting Blood Pressure Location Right Arm Physical Exam Narrative Large fungating mass in right upper chest The wound from the abscess I&D on the right lower chest does not have any purulent drainage. It is approximately 5 x 4 cm. There is beefy red granulation tissue at the base today. Const alert and oriented x3 Debridement Note Debridement Note No debridement was completed: No debridement was completed today Post-Debridement Measurements and Additional Note: Post-Debridement Measurements/Treatment WC - Nurse 1 - General Ulcer Assessment Start: 05/05/25 14:45 Freq: Status: Active Protocol: BEKAH Activity Type Activity Date Activity User E-sign Co-sign Detail Recorded Client Recorded Date Recorded By Document 05/05/25 14:45 ML [id number] 05/05/25 14:54 ML 05/05/25 14:45 WC - Today's Visit Information Type of service Initial Visit Arrival Mode Ambulatory Patient Identification Verified (Name & Yes ) Patient Requires Transmission-Based No Precautions Vital Signs Temperature (97.8 F-99.1 F) 98.1 F Temperature Source Temporal Pulse Rate (60-100) 94 Pulse Location Monitor Respiratory Rate (12-18) 14 Respiratory rate source Monitor Blood Pressure (90/60-120/80) 134/80 H Blood Pressure Mean (mm Hg) 98 Source Monitor Position Sitting Blood Pressure Location Right Arm Pain Scale: 0-10 Numeric Is Patient Pain Free? Yes WC - Nurse 1 - General Ulcer Measurement Start: 05/05/25 14:45 Freq: Status: Active Protocol: Activity Type Activity Date Activity User E-sign Co-sign Detail Recorded Client Recorded Date Recorded By Document 05/05/25 14:45 ML [id number] 05/05/25 14:54 ML 05/05/25 14:45 Wound Center Nurse 1 LOWER LEFT ABD -Current Size (cm) - Length 6 -Current Size (cm) - Width 3.5 -Current Size (cm) - Depth 6 -Total Square Cm 21.0 -Undermining/Tunneling Starts (O'clock 8 ) -Undermining/Tunneling Ends (O'clock) 11 -Maximum Distance (cm) 6 -Exudate Type Serosanguineous -Slough/Fibrin Yes -Necrosis Amt Medium (34-66%) -Necrotic Tissue Type Adherent Slough -Texture (Juanita-wound Skin Appearance) Assessed -Color (Juanita-wound Skin Appearance) Assessed -Tenderness on Palpation (Juanita-wound Yes Skin Appearance) -Ulcer Cleansing Rinsed/ Irrigated with Saline -Anesthetic Used 4% Lidocaine Solution,5% Lidocaine Gel WC - Nurse 2 - General Ulcer CM Notes Start: 05/05/25 14:45 Freq: Status: Active Protocol: Activity Type Activity Date Activity User E-sign Co-sign Detail Recorded Client Recorded Date Recorded By Document 05/05/25 15:23 DS [id number] 05/05/25 15:23 DS Edit Result 05/05/25 15:23 DS (1) [id number] 05/05/25 16:10 DS (1) LOWER LEFT ABD - Foul Odor after Cleansing No => - Bioengineered Tissue No => - Bleeding Controlled with Pressure => - Treatment Response Procedure => Tolerated Well => 05/05/25 15:23 Wound Center Nurse 2 -Time 15:23 -Correct Patient Yes -Correct Side, Site, Position Yes -Procedure Performed No -Post Debridement (cm) - Length 6.0 -Post Debridement (cm) - Width 2.0 -Post Debridement (cm) - Depth 0.1 -Total Square (Post) (cm) 12.00 -Area of Debridement (cm) - Length 6.0 -Area of Debridement (cm) - Width 2.0 -Total Square (Area) (cm) 12.00 -Tunneling No -Undermining/Tunneling No -Circular Undermining No -Wound/Ulcer Outcome Not Healed Pain Scale: 0-10 Numeric Is Patient Pain Free? Yes WC - Nurse 3 - General Ulcer D/C NN Start: 05/05/25 14:45 Freq: Status: Active Protocol: Activity Type Activity Date Activity User E-sign Co-sign Detail Recorded Client Recorded Date Recorded By Document 05/05/25 15:39 KW [id number] 05/05/25 15:39 KW 05/05/25 15:39 Wound Care Center Nurse 3 LOWER LEFT ABD -Primary Dressing Applied Hysept -Other Dressing wet to dry -Primary Dressing Covered/Secured with Dry Gauze & Roll Gauze, Secured with Tape -Hysept 1 Pain Scale: 0-10 Numeric Is Patient Pain Free? Yes WC - Visit Discharge Discharge Condition Stable Ambulatory Status Ambulatory Transportation Private Auto Accompanied by daughter Medication Reconcilliation completed & No provided to patient/care provider Clinical Summary of Care Provided Yes Charges/Coding Procedures Integumentary [id number]: [id number] Global Visit Assessment/Plan Assessment/Plan (1) Open chest wound: CODE(S): S21.109A - Unspecified open wound of unspecified front wall of thorax without penetration into thoracic cavity, initial encounter PLAN: Discussed with infectious disease the cultures Patient placed on linezolid and ciprofloxacin for treatment of the Enterococcus in the E. coli, respectively. Plan for 1 week of treatment. He has improved clinically since the I&D Follow-up with me later this week to check progress. Continue Dakin's wet-to-dry dressings for the abscess cavity twice daily Patient happy with the plan Discussed plan with the patient's adult daughter and she was in agreement
--- NOTE | 2025-05-06 07:33 | PCM.WC.HP ---
History of Present Illness Date of Service: 05/05/25 Chief Complaint: Left medial thigh wound after I&D in ED History of Wound: Tom Patel is a delightful 84-year-old male with history of metastatic melanoma from a primary lesion on his right lower chest which was excised for wide local excision on 25 April 2025. He unfortunately developed an abscess postop week 1 which was drained on 02 May 2025 and packed. He was placed on clindamycin. Cultures growing Enterococcus faecalis and E. coli. Current encounter, 05 May 2025: Patient doing better today and feels well. No fevers or chills. Reports no purulent drainage. Reports compliance with packing the wound. [facility] Medical History Loss of hearing Edentulous Anxiety Thyroid disease Prostate disease Easy bruising Blackout Chronic cough Former smoker History of irregular heartbeat History of echocardiogram Cardiology follow-up encounter Malignant melanoma COPD (chronic obstructive pulmonary disease) Essential hypertension Hyperlipidemia Open wound of left thigh Sepsis Abscess or cellulitis of thigh Atherosclerotic heart disease of [place] coronary artery without angina pectoris Non-rheumatic mitral regurgitation Pulmonary hypertension NSTEMI (non-ST elevated myocardial infarction) CHF (congestive heart failure) Home Medications ?Medication ?Instructions ?Recorded ?Last Taken ?Type tamsulosin 0.4 mg capsule 0.4 mg PO DAILY PROSTATE 11/30/20 04/24/25 History albuterol sulfate 2.5 mg/3 mL 2.5 mg inhalation Q6H PRN 09/23/21 Unknown History (0.083 %) solution for nebulization shortness of breath or wheezing aspirin 81 mg tablet,delayed 81 mg PO DAILY #1 TAB 09/23/21 04/21/25 Rx release furosemide 40 mg tablet 40 mg PO DAILY 04/04/22 04/24/25 History metoprolol succinate 100 mg 50 mg PO BID 09/28/22 04/24/25 History tablet,extended release 24 hr amlodipine 10 mg tablet 5 mg PO DAILY BP 12/21/23 04/24/25 History levothyroxine 125 mcg tablet 125 mcg PO DAILY 12/21/23 04/24/25 History magnesium oxide 400 mg (241.3 mg 400 mg PO BID 03/14/25 04/24/25 History magnesium) tablet potassium chloride 10 mEq 10 meq PO DAILY 03/14/25 04/24/25 History capsule,extended release cetirizine 10 mg tablet (24Hour 10 mg PO DAILY PRN allergy symptoms 04/25/25 04/25/25 History Allergy) oxycodone 5 mg tablet 5 mg PO BID PRN pain 5 days #10 04/25/25 Unknown Rx tabs atorvastatin 40 mg tablet 40 mg PO QHS for cholesterol #90 05/05/25 Unknown Rx TABLETS ciprofloxacin HCl 500 mg tablet 500 mg PO BID 7 days #14 tabs 05/05/25 Unknown Rx (Cipro) linezolid 600 mg tablet 600 mg PO BID 1 week #14 tabs 05/05/25 Unknown Rx Allergy/AdvReac Type Severity Reaction Status Date / Time amoxicillin (From Augmentin) Allergy Rash Verified 05/02/25 13:50 clavulanic acid (From Allergy Rash Verified 05/02/25 13:50 Augmentin) oxycodone AdvReac Intermediate OTHER Verified 05/02/25 13:50 Opioids - Morphine Analogues AdvReac Low blood Verified 05/02/25 13:50 pressure Family History Grandmother CAD (coronary artery disease) Father CAD (coronary artery disease) Surgical History History of external ear surgery History of coronary artery bypass surgery (~11/25/20) Social History Smoking Status: Former smoker Tobacco: How many years used: 20 alcohol intake: never substance use type: does not use caffeine: Yes Type: coffee Number of servings: 4 additional social history: pt denies vaping, pt denies marijuana, pt denies smoking pt uses ibuprofen as needed pt uses aspirin daily Vital Signs Vital Signs Vital Signs: 05/05/25 14:45 Temperature 98.1 F Temperature Source Temporal Pulse Rate 94 Respiratory Rate 14 Blood Pressure 134/80 H Blood Pressure Mean 98 Blood Pressure Source Monitor Blood Pressure Position Sitting Blood Pressure Location Right Arm Physical Exam Narrative Large fungating mass in right upper chest The wound from the abscess I&D on the right lower chest does not have any purulent drainage. It is approximately 5 x 4 cm. There is beefy red granulation tissue at the base today. Const alert and oriented x3 Debridement Note Debridement Note No debridement was completed: No debridement was completed today Post-Debridement Measurements and Additional Note: Post-Debridement Measurements/Treatment WC - Nurse 1 - General Ulcer Assessment Start: 05/05/25 14:45 Freq: Status: Active Protocol: BEKAH Activity Type Activity Date Activity User E-sign Co-sign Detail Recorded Client Recorded Date Recorded By Document 05/05/25 14:45 ML [id number] 05/05/25 14:54 ML 05/05/25 14:45 WC - Today's Visit Information Type of service Initial Visit Arrival Mode Ambulatory Patient Identification Verified (Name & Yes ) Patient Requires Transmission-Based No Precautions Vital Signs Temperature (97.8 F-99.1 F) 98.1 F Temperature Source Temporal Pulse Rate (60-100) 94 Pulse Location Monitor Respiratory Rate (12-18) 14 Respiratory rate source Monitor Blood Pressure (90/60-120/80) 134/80 H Blood Pressure Mean (mm Hg) 98 Source Monitor Position Sitting Blood Pressure Location Right Arm Pain Scale: 0-10 Numeric Is Patient Pain Free? Yes WC - Nurse 1 - General Ulcer Measurement Start: 05/05/25 14:45 Freq: Status: Active Protocol: Activity Type Activity Date Activity User E-sign Co-sign Detail Recorded Client Recorded Date Recorded By Document 05/05/25 14:45 ML [id number] 05/05/25 14:54 ML 05/05/25 14:45 Wound Center Nurse 1 LOWER LEFT ABD -Current Size (cm) - Length 6 -Current Size (cm) - Width 3.5 -Current Size (cm) - Depth 6 -Total Square Cm 21.0 -Undermining/Tunneling Starts (O'clock 8 ) -Undermining/Tunneling Ends (O'clock) 11 -Maximum Distance (cm) 6 -Exudate Type Serosanguineous -Slough/Fibrin Yes -Necrosis Amt Medium (34-66%) -Necrotic Tissue Type Adherent Slough -Texture (Juanita-wound Skin Appearance) Assessed -Color (Juanita-wound Skin Appearance) Assessed -Tenderness on Palpation (Juanita-wound Yes Skin Appearance) -Ulcer Cleansing Rinsed/ Irrigated with Saline -Anesthetic Used 4% Lidocaine Solution,5% Lidocaine Gel WC - Nurse 2 - General Ulcer CM Notes Start: 05/05/25 14:45 Freq: Status: Active Protocol: Activity Type Activity Date Activity User E-sign Co-sign Detail Recorded Client Recorded Date Recorded By Document 05/05/25 15:23 DS [id number] 05/05/25 15:23 DS Edit Result 05/05/25 15:23 DS (1) [id number] 05/05/25 16:10 DS (1) LOWER LEFT ABD - Foul Odor after Cleansing No => - Bioengineered Tissue No => - Bleeding Controlled with Pressure => - Treatment Response Procedure => Tolerated Well => 05/05/25 15:23 Wound Center Nurse 2 -Time 15:23 -Correct Patient Yes -Correct Side, Site, Position Yes -Procedure Performed No -Post Debridement (cm) - Length 6.0 -Post Debridement (cm) - Width 2.0 -Post Debridement (cm) - Depth 0.1 -Total Square (Post) (cm) 12.00 -Area of Debridement (cm) - Length 6.0 -Area of Debridement (cm) - Width 2.0 -Total Square (Area) (cm) 12.00 -Tunneling No -Undermining/Tunneling No -Circular Undermining No -Wound/Ulcer Outcome Not Healed Pain Scale: 0-10 Numeric Is Patient Pain Free? Yes WC - Nurse 3 - General Ulcer D/C NN Start: 05/05/25 14:45 Freq: Status: Active Protocol: Activity Type Activity Date Activity User E-sign Co-sign Detail Recorded Client Recorded Date Recorded By Document 05/05/25 15:39 KW [id number] 05/05/25 15:39 KW 05/05/25 15:39 Wound Care Center Nurse 3 LOWER LEFT ABD -Primary Dressing Applied Hysept -Other Dressing wet to dry -Primary Dressing Covered/Secured with Dry Gauze & Roll Gauze, Secured with Tape -Hysept 1 Pain Scale: 0-10 Numeric Is Patient Pain Free? Yes WC - Visit Discharge Discharge Condition Stable Ambulatory Status Ambulatory Transportation Private Auto Accompanied by daughter Medication Reconcilliation completed & No provided to patient/care provider Clinical Summary of Care Provided Yes Charges/Coding Procedures Integumentary 111xxx-113xx: 77137 Global Visit Assessment/Plan Assessment/Plan (1) Open chest wound: CODE(S): S21.109A - Unspecified open wound of unspecified front wall of thorax without penetration into thoracic cavity, initial encounter PLAN: Discussed with infectious disease the cultures Patient placed on linezolid and ciprofloxacin for treatment of the Enterococcus in the E. coli, respectively. Plan for 1 week of treatment. He has improved clinically since the I&D Follow-up with me later this week to check progress. Continue Dakin's wet-to-dry dressings for the abscess cavity twice daily Patient happy with the plan Discussed plan with the patient's adult daughter and she was in agreement
--- NOTE | 2025-05-06 09:46 | WC ---
PHOTO 05/05/25 LOWER LEFT ABD
--- NOTE | 2025-05-06 09:46 | WC ---
PHOTO 05/05/25 LOWER LEFT ABD
[2025-05-12 13:44] VITALS: BP 105/67; PULSE 94; RESP 16; TEMP 36.4
--- NOTE | 2025-05-12 14:36 | PN.PCM_ITS ---
History of Present Illness Date of Service: 05/12/25 Chief Complaint: Left medial thigh wound after I&D in ED History of Wound: Tom Patel is a delightful 84-year-old male with history of metastatic melanoma from a primary lesion on his right lower chest which was excised for wide local excision on 25 April 2025. He unfortunately developed an abscess postop week 1 which was drained on 02 May 2025 and packed. He was placed on clindamycin. Cultures growing Enterococcus faecalis and E. coli. 05 May 2025: Patient doing better today and feels well. No fevers or chills. Reports no purulent drainage. Reports compliance with packing the wound. Subjective Subjective Current encounter, 12 May 2025: The patient is an 84-year-old male presenting with wound care management and follow-up on radiation therapy. He is nearing the end of his radiation therapy, with two sessions left, and reports that the treatment has been well-tolerated despite scheduling adjustments. The patient is managing a wound with Dakins solution applied twice daily, which has improved significantly, showing no signs of infection. He has completed his antibiotic regimen and continues regular dressing changes. Attestation: Documentation on this patient encounter was supported using ambient scribe technology/ voice AI technology. The patient consented to recording for the purpose of documenting the encounter. Provider reviewed content of the generated note prior to signature. Objective Data Objective Data Vital Signs: Vital Signs Temp Pulse Resp BP 97.6 F L 94 16 105/67 05/12/25 13:44 05/12/25 13:44 05/12/25 13:44 05/12/25 13:44 Charges/Coding Procedures Integumentary 111xxx-113xx: [id number] Emely musc/fascia 20 sq cm/< Physical Exam Narrative - Integumentary: Wound on the right upper quadrant of the abdomen/right lower chest, down to the fascia, with granulation tissue present, no signs of infection or fluid collection. Infection adequately treated Debridement Note Debridement Note Wound debrided: Right lower chest/upper abdomen wound Laterality: Right Wound Grade/Stage: Stage 3 Type of Debridement: Excisional debridement Anesthesia Used: 4% Lidocaine Solution Depth: to muscle (Down to chest/abdominal wall muscle at the base of the wound) Percentage of wound debrided: 100 Instrument Used: 7mm curette Tissue Removed: Fibrinous exudate and necrotic biofilm at the base of the wound Severity: Necrosis of Muscle Amount of bleeding with debridement: Moderate Bleeding Controlled with: Compression and gauze Patient tolerated procedure: Patient tolerated procedure well Post-Debridement Measurements and Additional Note: Post-Debridement Measurements/Treatment WC - Nurse 1 - General Ulcer Assessment Start: 05/05/25 14:45 Freq: Status: Active Protocol: BEKAH Activity Type Activity Date Activity User E-sign Co-sign Detail Recorded Client Recorded Date Recorded By Document 05/05/25 14:45 ML [id number] 05/05/25 14:54 ML Document 05/12/25 13:44 JF [id number] 05/12/25 13:50 JF 05/05/25 05/12/25 14:45 13:44 WC - Today's Visit Information Type of service Initial Visit Follow-up Visit (Physician/[facility] ) Arrival Mode Ambulatory Ambulatory Patient Identification Verified (Name & Yes Yes ) Patient Requires Transmission-Based No No Precautions Vital Signs Temperature (97.8 F-99.1 F) 98.1 F 97.6 F L Temperature Source Temporal Temporal Pulse Rate (60-100) 94 94 Pulse Location Monitor Monitor Respiratory Rate (12-18) 14 16 Respiratory rate source Monitor Observation Blood Pressure (90/60-120/80) 134/80 H 105/67 Blood Pressure Mean (mm Hg) 98 79 Source Monitor Monitor Position Sitting Semi-Fowlers Blood Pressure Location Right Arm Left Arm History Since Last Visit- (Skip if this is Patient's initial visit) Have you changed medications since your Yes last visit? Any new allergies or adverse reactions No Had a fall/change in ADL's that may No increase risk of falls Signs or symptoms of abuse and/or No neglect since last visit Have you been in the hospital since your No last visit? Has dressing in place as prescribed Yes Has compression in place as prescribed N/A Has offloadiing in place as prescribed N/A Experienced any changes in pain level or No management Left Footwear Regular Shoe Right Footwear Regular Shoe Pain Scale: 0-10 Numeric Is Patient Pain Free? Yes Yes - Nurse 1 - General Ulcer Measurement Start: 05/05/25 14:45 Freq: Status: Active Protocol: Activity Type Activity Date Activity User E-sign Co-sign Detail Recorded Client Recorded Date Recorded By Document 05/05/25 14:45 ML [id number] 05/05/25 14:54 ML Document 05/12/25 13:44 JF [id number] 05/12/25 13:50 JF 05/05/25 05/12/25 14:45 13:44 Wound Center Nurse 1 LOWER LEFT ABD -Combined with other wound No -Current Size (cm) - Length 6 5 -Current Size (cm) - Width 3.5 7 -Current Size (cm) - Depth 6 1.4 -Total Square Cm 21.0 35 -Photo Taken Yes -Epithelialization Small 1-33% -Tunneling Yes -Tunneling Position (O'clock) 9 -Tunneling Distance (cm) 1.3 -Undermining/Tunneling No -Undermining/Tunneling Starts (O'clock 8 ) -Undermining/Tunneling Ends (O'clock) 11 -Maximum Distance (cm) 6 -Circular Undermining No -Exudate Amt Medium -Exudate Type Serosanguineous Serosanguineous -Wound Margin Fibrotic Scar, Thickened Scar -Granulation Amt Large (67-100%) -Granulation Quality Red -Slough/Fibrin Yes Yes -Necrosis Amt Medium (34-66%) Small (1-33%) -Necrotic Tissue Type Adherent Slough Adherent Slough -Structure Exposed N/A -Texture (Juanita-wound Skin Appearance) Assessed Assessed -Moisture (Juanita-wound Skin Appearance) No Abnormality, Dry/Scaly -Color (Juanita-wound Skin Appearance) Assessed Assessed, Erythema -Temperature (Juanita-wound Skin No Abnormality Appearance) (Pt Warm) -Tenderness on Palpation (Juanita-wound Yes No Skin Appearance) -Ulcer Cleansing Rinsed/ Rinsed/ Irrigated with Irrigated with Saline Saline -Foul Odor after Cleansing No -Anesthetic Used 4% Lidocaine 4% Lidocaine Solution,5% Solution Lidocaine Gel WC - Nurse 2 - General Ulcer CM Notes Start: 05/05/25 14:45 Freq: Status: Active Protocol: Activity Type Activity Date Activity User E-sign Co-sign Detail Recorded Client Recorded Date Recorded By Document 05/05/25 15:23 DS [id number] 05/05/25 15:23 DS Edit Result 05/05/25 15:23 DS (1) [id number] 05/05/25 16:10 DS Document 05/12/25 13:52 JF [id number] 05/12/25 13:54 JF (1) LOWER LEFT ABD - Foul Odor after Cleansing No => - Bioengineered Tissue No => - Bleeding Controlled with Pressure => - Treatment Response Procedure => Tolerated Well => 05/05/25 05/12/25 15:23 13:52 Wound Center Nurse 2 LOWER LEFT ABD -Time 15:23 13:53 -Correct Patient Yes Yes -Correct Side, Site, Position Yes Yes -Correct Procedure Yes -Procedure Performed No Yes -Type of Procedure Debridement -Clinical Debridement Muscle / Fascia -Tissue Removed Fascia -Post Debridement (cm) - Length 6.0 7 -Post Debridement (cm) - Width 2.0 2.5 -Post Debridement (cm) - Depth 0.1 1.4 -Total Square (Post) (cm) 12.00 17.5 -Area of Debridement (cm) - Length 6.0 7 -Area of Debridement (cm) - Width 2.0 2.5 -Total Square (Area) (cm) 12.00 17.5 -Tunneling No No -Undermining/Tunneling No No -Circular Undermining No No -Wound/Ulcer Outcome Not Healed Not Healed -Ulcer Cleansing Rinsed/ Irrigated with Saline -Foul Odor after Cleansing No -Bioengineered Tissue No -Bleeding Controlled with Pressure -Treatment Response Procedure Tolerated Well -Offloading No -Debridement - Muscle / Fascia, 1st Yes 20sq cm Pain Scale: 0-10 Numeric Is Patient Pain Free? Yes Yes - Nurse 3 - General Ulcer D/C NN Start: 05/05/25 14:45 Freq: Status: Active Protocol: Activity Type Activity Date Activity User E-sign Co-sign Detail Recorded Client Recorded Date Recorded By Document 05/05/25 15:39 [id number] 05/05/25 15:39 Document 05/12/25 14:12 [id number] 05/12/25 14:13 DL 05/05/25 05/12/25 15:39 14:12 Wound Care Center Nurse 3 LOWER LEFT ABD -Ulcer Cleansing Rinsed/ Irrigated with Saline -Foul Odor after Cleansing No -Primary Dressing Applied Hysept -Other Dressing wet to dry Dakins -Primary Dressing Covered/Secured with Dry Gauze & Secured with Roll Gauze, Tape Secured with Tape -Other Covering ABD -Hysept 1 Treatment Response Procedure Tolerated Well Pain Scale: 0-10 Numeric Is Patient Pain Free? Yes Yes WC - Visit Discharge Discharge Condition Stable Stable Ambulatory Status Ambulatory Ambulatory Transportation Private Auto Accompanied by daughter Medication Reconcilliation completed & No provided to patient/care provider Clinical Summary of Care Provided Yes Assessment/Plan Assessment/Plan (1) Open chest wound: CODE(S): S21.109A - Unspecified open wound of unspecified front wall of thorax without penetration into thoracic cavity, initial encounter PLAN: Infection appears cleared, no signs of infection today Continue Dakin's wet-to-dry dressings twice daily Follow-up with me in 2 weeks
--- NOTE | 2025-05-12 14:36 | PN.PCM_ITS ---
History of Present Illness Date of Service: 05/12/25 Chief Complaint: Left medial thigh wound after I&D in ED History of Wound: Tom Patel is a delightful 84-year-old male with history of metastatic melanoma from a primary lesion on his right lower chest which was excised for wide local excision on 25 April 2025. He unfortunately developed an abscess postop week 1 which was drained on 02 May 2025 and packed. He was placed on clindamycin. Cultures growing Enterococcus faecalis and E. coli. 05 May 2025: Patient doing better today and feels well. No fevers or chills. Reports no purulent drainage. Reports compliance with packing the wound. Subjective Subjective Current encounter, 12 May 2025: The patient is an 84-year-old male presenting with wound care management and follow-up on radiation therapy. He is nearing the end of his radiation therapy, with two sessions left, and reports that the treatment has been well-tolerated despite scheduling adjustments. The patient is managing a wound with Dakins solution applied twice daily, which has improved significantly, showing no signs of infection. He has completed his antibiotic regimen and continues regular dressing changes. Attestation: Documentation on this patient encounter was supported using ambient scribe technology/ voice AI technology. The patient consented to recording for the purpose of documenting the encounter. Provider reviewed content of the generated note prior to signature. Objective Data Objective Data Vital Signs: Vital Signs Temp Pulse Resp BP 97.6 F L 94 16 105/67 05/12/25 13:44 05/12/25 13:44 05/12/25 13:44 05/12/25 13:44 Charges/Coding Procedures Integumentary [id number]: [id number] Emley musc/fascia 20 sq cm/< Physical Exam Narrative - Integumentary: Wound on the right upper quadrant of the abdomen/right lower chest, down to the fascia, with granulation tissue present, no signs of infection or fluid collection. Infection adequately treated Debridement Note Debridement Note Wound debrided: Right lower chest/upper abdomen wound Laterality: Right Wound Grade/Stage: Stage 3 Type of Debridement: Excisional debridement Anesthesia Used: 4% Lidocaine Solution Depth: to muscle (Down to chest/abdominal wall muscle at the base of the wound) Percentage of wound debrided: 100 Instrument Used: 7mm curette Tissue Removed: Fibrinous exudate and necrotic biofilm at the base of the wound Severity: Necrosis of Muscle Amount of bleeding with debridement: Moderate Bleeding Controlled with: Compression and gauze Patient tolerated procedure: Patient tolerated procedure well Post-Debridement Measurements and Additional Note: Post-Debridement Measurements/Treatment WC - Nurse 1 - General Ulcer Assessment Start: 05/05/25 14:45 Freq: Status: Active Protocol: BEKAH Activity Type Activity Date Activity User E-sign Co-sign Detail Recorded Client Recorded Date Recorded By Document 05/05/25 14:45 ML [id number] 05/05/25 14:54 ML Document 05/12/25 13:44 JF [id number] 05/12/25 13:50 JF 05/05/25 05/12/25 14:45 13:44 WC - Today's Visit Information Type of service Initial Visit Follow-up Visit (Physician/TOWER CLEANER ) Arrival Mode Ambulatory Ambulatory Patient Identification Verified (Name & Yes Yes ) Patient Requires Transmission-Based No No Precautions Vital Signs Temperature (97.8 F-99.1 F) 98.1 F 97.6 F L Temperature Source Temporal Temporal Pulse Rate (60-100) 94 94 Pulse Location Monitor Monitor Respiratory Rate (12-18) 14 16 Respiratory rate source Monitor Observation Blood Pressure (90/60-120/80) 134/80 H 105/67 Blood Pressure Mean (mm Hg) 98 79 Source Monitor Monitor Position Sitting Semi-Fowlers Blood Pressure Location Right Arm Left Arm History Since Last Visit- (Skip if this is Patient's initial visit) Have you changed medications since your Yes last visit? Any new allergies or adverse reactions No Had a fall/change in ADL's that may No increase risk of falls Signs or symptoms of abuse and/or No neglect since last visit Have you been in the hospital since your No last visit? Has dressing in place as prescribed Yes Has compression in place as prescribed N/A Has offloadiing in place as prescribed N/A Experienced any changes in pain level or No management Left Footwear Regular Shoe Right Footwear Regular Shoe Pain Scale: 0-10 Numeric Is Patient Pain Free? Yes Yes - Nurse 1 - General Ulcer Measurement Start: 05/05/25 14:45 Freq: Status: Active Protocol: Activity Type Activity Date Activity User E-sign Co-sign Detail Recorded Client Recorded Date Recorded By Document 05/05/25 14:45 ML [id number] 05/05/25 14:54 ML Document 05/12/25 13:44 JF [id number] 05/12/25 13:50 JF 05/05/25 05/12/25 14:45 13:44 Wound Center Nurse 1 LOWER LEFT ABD -Combined with other wound No -Current Size (cm) - Length 6 5 -Current Size (cm) - Width 3.5 7 -Current Size (cm) - Depth 6 1.4 -Total Square Cm 21.0 35 -Photo Taken Yes -Epithelialization Small 1-33% -Tunneling Yes -Tunneling Position (O'clock) 9 -Tunneling Distance (cm) 1.3 -Undermining/Tunneling No -Undermining/Tunneling Starts (O'clock 8 ) -Undermining/Tunneling Ends (O'clock) 11 -Maximum Distance (cm) 6 -Circular Undermining No -Exudate Amt Medium -Exudate Type Serosanguineous Serosanguineous -Wound Margin Fibrotic Scar, Thickened Scar -Granulation Amt Large (67-100%) -Granulation Quality Red -Slough/Fibrin Yes Yes -Necrosis Amt Medium (34-66%) Small (1-33%) -Necrotic Tissue Type Adherent Slough Adherent Slough -Structure Exposed N/A -Texture (Juanita-wound Skin Appearance) Assessed Assessed -Moisture (Juanita-wound Skin Appearance) No Abnormality, Dry/Scaly -Color (Juanita-wound Skin Appearance) Assessed Assessed, Erythema -Temperature (Juanita-wound Skin No Abnormality Appearance) (Pt Warm) -Tenderness on Palpation (Juanita-wound Yes No Skin Appearance) -Ulcer Cleansing Rinsed/ Rinsed/ Irrigated with Irrigated with Saline Saline -Foul Odor after Cleansing No -Anesthetic Used 4% Lidocaine 4% Lidocaine Solution,5% Solution Lidocaine Gel WC - Nurse 2 - General Ulcer CM Notes Start: 05/05/25 14:45 Freq: Status: Active Protocol: Activity Type Activity Date Activity User E-sign Co-sign Detail Recorded Client Recorded Date Recorded By Document 05/05/25 15:23 DS [id number] 05/05/25 15:23 DS Edit Result 05/05/25 15:23 DS (1) [id number] 05/05/25 16:10 DS Document 05/12/25 13:52 JF [id number] 05/12/25 13:54 JF (1) LOWER LEFT ABD - Foul Odor after Cleansing No => - Bioengineered Tissue No => - Bleeding Controlled with Pressure => - Treatment Response Procedure => Tolerated Well => 05/05/25 05/12/25 15:23 13:52 Wound Center Nurse 2 LOWER LEFT ABD -Time 15:23 13:53 -Correct Patient Yes Yes -Correct Side, Site, Position Yes Yes -Correct Procedure Yes -Procedure Performed No Yes -Type of Procedure Debridement -Clinical Debridement Muscle / Fascia -Tissue Removed Fascia -Post Debridement (cm) - Length 6.0 7 -Post Debridement (cm) - Width 2.0 2.5 -Post Debridement (cm) - Depth 0.1 1.4 -Total Square (Post) (cm) 12.00 17.5 -Area of Debridement (cm) - Length 6.0 7 -Area of Debridement (cm) - Width 2.0 2.5 -Total Square (Area) (cm) 12.00 17.5 -Tunneling No No -Undermining/Tunneling No No -Circular Undermining No No -Wound/Ulcer Outcome Not Healed Not Healed -Ulcer Cleansing Rinsed/ Irrigated with Saline -Foul Odor after Cleansing No -Bioengineered Tissue No -Bleeding Controlled with Pressure -Treatment Response Procedure Tolerated Well -Offloading No -Debridement - Muscle / Fascia, 1st Yes 20sq cm Pain Scale: 0-10 Numeric Is Patient Pain Free? Yes Yes - Nurse 3 - General Ulcer D/C NN Start: 05/05/25 14:45 Freq: Status: Active Protocol: Activity Type Activity Date Activity User E-sign Co-sign Detail Recorded Client Recorded Date Recorded By Document 05/05/25 15:39 [id number] 05/05/25 15:39 Document 05/12/25 14:12 [id number] 05/12/25 14:13 DL 05/05/25 05/12/25 15:39 14:12 Wound Care Center Nurse 3 LOWER LEFT ABD -Ulcer Cleansing Rinsed/ Irrigated with Saline -Foul Odor after Cleansing No -Primary Dressing Applied Hysept -Other Dressing wet to dry Dakins -Primary Dressing Covered/Secured with Dry Gauze & Secured with Roll Gauze, Tape Secured with Tape -Other Covering ABD -Hysept 1 Treatment Response Procedure Tolerated Well Pain Scale: 0-10 Numeric Is Patient Pain Free? Yes Yes WC - Visit Discharge Discharge Condition Stable Stable Ambulatory Status Ambulatory Ambulatory Transportation Private Auto Accompanied by daughter Medication Reconcilliation completed & No provided to patient/care provider Clinical Summary of Care Provided Yes Assessment/Plan Assessment/Plan (1) Open chest wound: CODE(S): S21.109A - Unspecified open wound of unspecified front wall of thorax without penetration into thoracic cavity, initial encounter PLAN: Infection appears cleared, no signs of infection today Continue Dakin's wet-to-dry dressings twice daily Follow-up with me in 2 weeks
--- NOTE | 2025-05-13 09:48 | WC ---
PHOTO-LEFT LOWER ABD 05/12/25
--- NOTE | 2025-05-13 09:48 | WC ---
PHOTO-LEFT LOWER ABD 05/12/25
== END 2025-05-15 23:59 | disposition home or self-care (01) ==
LOC: WC 13:30
PROVIDERS: PCP Family Medicine Geriatric Medicine; Referring Provider Family Medicine Geriatric Medicine; Visit Provider Surgery Plastic and Reconstructive Surgery
DX: T81.89XA Other complications of procedures, not elsewhere classified, initial encounter (principal); I11.0 Hypertensive heart disease with heart failure; I50.9 Heart failure, unspecified; I27.20 Pulmonary hypertension, unspecified; J44.9 Chronic obstructive pulmonary disease, unspecified; S21.101A Unspecified open wound of right front wall of thorax without penetration into thoracic cavity, initial encounter; I25.10 Atherosclerotic heart disease of native coronary artery without angina pectoris; I34.0 Nonrheumatic mitral (valve) insufficiency; E07.9 Disorder of thyroid, unspecified; E78.5 Hyperlipidemia, unspecified; I25.2 Old myocardial infarction; Z79.82 Long term (current) use of aspirin; Z79.890 Hormone replacement therapy; Z79.899 Other long term (current) drug therapy; Z85.820 Personal history of malignant melanoma of skin; Z92.3 Personal history of irradiation; Z87.891 Personal history of nicotine dependence; Z95.1 Presence of aortocoronary bypass graft
CPT/HCPCS: 11043; 99213; G0463

== ENCOUNTER 2025-06-09 09:00 | Outpatient (RCR) | payer MEDICARE, OTHER, SELFPAY ==
[2020-12-23 09:20] VITALS: BMI 29.0
[2025-05-26 08:55] VITALS: BP 125/73; PULSE 96; RESP 16; TEMP 36.5
--- NOTE | 2025-05-26 09:54 | PN.PCM_ITS ---
History of Present Illness Date of Service: 05/26/25 Chief Complaint: Left medial thigh wound after I&D in ED History of Wound: Tom Patel is a delightful 84-year-old male with history of metastatic melanoma from a primary lesion on his right lower chest which was excised for wide local excision on 25 April 2025. He unfortunately developed an abscess postop week 1 which was drained on 02 May 2025 and packed. He was placed on clindamycin. Cultures growing Enterococcus faecalis and E. coli. 05 May 2025: Patient doing better today and feels well. No fevers or chills. Reports no purulent drainage. Reports compliance with packing the wound. Subjective Subjective 12 May 2025: The patient is an 84-year-old male presenting with wound care management and follow-up on radiation therapy. He is nearing the end of his radiation therapy, with two sessions left, and reports that the treatment has been well-tolerated despite scheduling adjustments. The patient is managing a wound with Dakins solution applied twice daily, which has improved significantly, showing no signs of infection. He has completed his antibiotic regimen and continues regular dressing changes. Attestation: Documentation on this patient encounter was supported using ambient scribe technology/ voice AI technology. The patient consented to recording for the purpose of documenting the encounter. Provider reviewed content of the generated note prior to signature. Current encounter, 26 May 2025: Dpiong well. Finished antibiotics. Finished radiation therapy. No fevers/chills/drainage Objective Data Objective Data Vital Signs: Vital Signs Temp Pulse Resp BP 97.7 F L 96 16 125/73 H 05/26/25 08:55 05/26/25 08:55 05/26/25 08:55 05/26/25 08:55 Charges/Coding Procedures Integumentary 111xxx-113xx: [id number] Global Visit Physical Exam Narrative - Integumentary: Wound on the right upper quadrant of the abdomen/right lower chest, down to the fascia, with granulation tissue present, no signs of infection or fluid collection. Infection adequately treated Healing well and smaller today 1.6x 5.8 x0.9 cn Debridement Note Debridement Note Wound debrided: Right upper abdomen/lower chest woudn Laterality: Right Wound Grade/Stage: 3 Type of Debridement: Excisional debridement Anesthesia Used: 4% Lidocaine Solution Depth: Down to and including healthy tissue and in the subcutaneous layer Percentage of wound debrided: 100 Instrument Used: 7mm curette Tissue Removed: necrotic fibrinous exudate and biofilm Severity: Fat Layer Exposed Amount of bleeding with debridement: Mild Bleeding Controlled with: Compression and gauze Patient tolerated procedure: Patient tolerated procedure well Post-Debridement Measurements and Additional Note: Post-Debridement Measurements/Treatment NADINE - Nurse 1 - General Ulcer Assessment Start: 05/26/25 08:55 Freq: Status: Active Protocol: BEKAH Activity Type Activity Date Activity User E-sign Co-sign Detail Recorded Client Recorded Date Recorded By Document 05/26/25 08:55 DL [id number] 05/26/25 09:04 DL 05/26/25 08:55 WC - Today's Visit Information Type of service Follow-up Visit (Physician/PATROL GUARD ) Arrival Mode Ambulatory Transfer Assistance None Patient Identification Verified (Name & Yes ) Patient Requires Transmission-Based No Precautions Vital Signs Temperature (97.8 F-99.1 F) 97.7 F L Temperature Source Temporal Pulse Rate (60-100) 96 Pulse Location Monitor Respiratory Rate (12-18) 16 Respiratory rate source Observation Blood Pressure (90/60-120/80) 125/73 H Blood Pressure Mean (mm Hg) 90 Source Monitor Pain Scale: 0-10 Numeric Is Patient Pain Free? Yes NADINE - Nurse 1 - General Ulcer Measurement Start: 05/26/25 08:55 Freq: Status: Active Protocol: Activity Type Activity Date Activity User E-sign Co-sign Detail Recorded Client Recorded Date Recorded By Document 05/26/25 08:55 DL [id number] 05/26/25 09:04 DL 05/26/25 08:55 Wound Center Nurse 1 LOWER LEFT ABD -Current Size (cm) - Length 1.6 -Current Size (cm) - Width 5.8 -Current Size (cm) - Depth 0.9 -Total Square Cm 9.28 -Exudate Amt Medium -Exudate Type Serosanguineous -Wound Margin Distinct, Outline Attached -Granulation Amt Large (67-100%) -Granulation Quality Red -Necrosis Amt None Present (0 %) -Structure Exposed N/A -Texture (Juanita-wound Skin Appearance) Scarring -Moisture (Juanita-wound Skin Appearance) No Abnormality -Color (Juanita-wound Skin Appearance) No Abnormality -Temperature (Juanita-wound Skin No Abnormality Appearance) (Pt Warm) -Ulcer Cleansing Soap and Water -Foul Odor after Cleansing No -Anesthetic Used 5% Lidocaine Gel - Nurse 2 - General Ulcer CM Notes Start: 05/26/25 08:55 Freq: Status: Active Protocol: Activity Type Activity Date Activity User E-sign Co-sign Detail Recorded Client Recorded Date Recorded By Document 05/26/25 09:32 [email or web address] [id number] 05/26/25 09:35 JF 05/26/25 09:32 Wound Center Nurse 2 #1 L Med Thigh -Correct Patient Yes -Correct Side, Site, Position No -Correct Procedure No -Procedure Performed No LOWER LEFT ABD -Time 09:32 -Correct Patient Yes -Correct Side, Site, Position Yes -Correct Procedure Yes -Procedure Performed Yes -Type of Procedure Debridement -Clinical Debridement Subcutaneous -Tissue Removed Subcutaneous -Post Debridement (cm) - Length 1.6 -Post Debridement (cm) - Width 5.8 -Post Debridement (cm) - Depth 0.9 -Total Square (Post) (cm) 9.28 -Area of Debridement (cm) - Length 1.6 -Area of Debridement (cm) - Width 5.8 -Total Square (Area) (cm) 9.28 -Tunneling No -Undermining/Tunneling No -Circular Undermining No -Wound/Ulcer Outcome Not Healed -Ulcer Cleansing Rinsed/ Irrigated with Saline -Foul Odor after Cleansing No -Bioengineered Tissue No -Bleeding Controlled with Pressure -Treatment Response Procedure Tolerated Well -Offloading No -Debridement - Subq, 1st 20sq cm Yes Pain Scale: 0-10 Numeric Is Patient Pain Free? Yes - Nurse 3 - General Ulcer D/C NN Start: 05/26/25 08:55 Freq: Status: Active Protocol: Activity Type Activity Date Activity User E-sign Co-sign Detail Recorded Client Recorded Date Recorded By Document 05/26/25 09:48 DL [id number] 05/26/25 09:48 DL 05/26/25 09:48 Wound Care Center Nurse 3 LOWER LEFT ABD -Ulcer Cleansing Rinsed/ Irrigated with Saline -Primary Dressing Applied Hysept -Other Dressing dakins -Primary Dressing Covered/Secured with Secured with Tape -Hysept 1 Treatment Response Procedure Tolerated Well Pain Scale: 0-10 Numeric Is Patient Pain Free? Yes WC - Visit Discharge Discharge Condition Stable Ambulatory Status Ambulatory Transportation Private [facility] Facility Type Home Health Orders Sent Yes Assessment/Plan Assessment/Plan (1) Open chest wound: CODE(S): S21.109A - Unspecified open wound of unspecified front wall of thorax without penetration into thoracic cavity, initial encounter PLAN: Smaller wound and without signs of infection Continue Dakin's wet-to-dry dressings twice daily Follow-up with me in 2 weeks
--- NOTE | 2025-05-26 09:54 | PN.PCM_ITS ---
History of Present Illness Date of Service: 05/26/25 Chief Complaint: Left medial thigh wound after I&D in ED History of Wound: Tom Patel is a delightful 84-year-old male with history of metastatic melanoma from a primary lesion on his right lower chest which was excised for wide local excision on 25 April 2025. He unfortunately developed an abscess postop week 1 which was drained on 02 May 2025 and packed. He was placed on clindamycin. Cultures growing Enterococcus faecalis and E. coli. 05 May 2025: Patient doing better today and feels well. No fevers or chills. Reports no purulent drainage. Reports compliance with packing the wound. Subjective Subjective 12 May 2025: The patient is an 84-year-old male presenting with wound care management and follow-up on radiation therapy. He is nearing the end of his radiation therapy, with two sessions left, and reports that the treatment has been well-tolerated despite scheduling adjustments. The patient is managing a wound with Dakins solution applied twice daily, which has improved significantly, showing no signs of infection. He has completed his antibiotic regimen and continues regular dressing changes. Attestation: Documentation on this patient encounter was supported using ambient scribe technology/ voice AI technology. The patient consented to recording for the purpose of documenting the encounter. Provider reviewed content of the generated note prior to signature. Current encounter, 26 May 2025: Dpiong well. Finished antibiotics. Finished radiation therapy. No fevers/chills/drainage Objective Data Objective Data Vital Signs: Vital Signs Temp Pulse Resp BP 97.7 F L 96 16 125/73 H 05/26/25 08:55 05/26/25 08:55 05/26/25 08:55 05/26/25 08:55 Charges/Coding Procedures Integumentary 111xxx-113xx: [id number] Global Visit Physical Exam Narrative - Integumentary: Wound on the right upper quadrant of the abdomen/right lower chest, down to the fascia, with granulation tissue present, no signs of infection or fluid collection. Infection adequately treated Healing well and smaller today 1.6x 5.8 x0.9 cn Debridement Note Debridement Note Wound debrided: Right upper abdomen/lower chest woudn Laterality: Right Wound Grade/Stage: 3 Type of Debridement: Excisional debridement Anesthesia Used: 4% Lidocaine Solution Depth: Down to and including healthy tissue and in the subcutaneous layer Percentage of wound debrided: 100 Instrument Used: 7mm curette Tissue Removed: necrotic fibrinous exudate and biofilm Severity: Fat Layer Exposed Amount of bleeding with debridement: Mild Bleeding Controlled with: Compression and gauze Patient tolerated procedure: Patient tolerated procedure well Post-Debridement Measurements and Additional Note: Post-Debridement Measurements/Treatment NADINE - Nurse 1 - General Ulcer Assessment Start: 05/26/25 08:55 Freq: Status: Active Protocol: BEKAH Activity Type Activity Date Activity User E-sign Co-sign Detail Recorded Client Recorded Date Recorded By Document 05/26/25 08:55 DL [id number] 05/26/25 09:04 DL 05/26/25 08:55 WC - Today's Visit Information Type of service Follow-up Visit (Physician/NUCLEAR EQUIPMENT TEST ENGINEER ) Arrival Mode Ambulatory Transfer Assistance None Patient Identification Verified (Name & Yes ) Patient Requires Transmission-Based No Precautions Vital Signs Temperature (97.8 F-99.1 F) 97.7 F L Temperature Source Temporal Pulse Rate (60-100) 96 Pulse Location Monitor Respiratory Rate (12-18) 16 Respiratory rate source Observation Blood Pressure (90/60-120/80) 125/73 H Blood Pressure Mean (mm Hg) 90 Source Monitor Pain Scale: 0-10 Numeric Is Patient Pain Free? Yes NADINE - Nurse 1 - General Ulcer Measurement Start: 05/26/25 08:55 Freq: Status: Active Protocol: Activity Type Activity Date Activity User E-sign Co-sign Detail Recorded Client Recorded Date Recorded By Document 05/26/25 08:55 DL [id number] 05/26/25 09:04 DL 05/26/25 08:55 Wound Center Nurse 1 LOWER LEFT ABD -Current Size (cm) - Length 1.6 -Current Size (cm) - Width 5.8 -Current Size (cm) - Depth 0.9 -Total Square Cm 9.28 -Exudate Amt Medium -Exudate Type Serosanguineous -Wound Margin Distinct, Outline Attached -Granulation Amt Large (67-100%) -Granulation Quality Red -Necrosis Amt None Present (0 %) -Structure Exposed N/A -Texture (Juanita-wound Skin Appearance) Scarring -Moisture (Ujanita-wound Skin Appearance) No Abnormality -Color (Juanita-wound Skin Appearance) No Abnormality -Temperature (Juanita-wound Skin No Abnormality Appearance) (Pt Warm) -Ulcer Cleansing Soap and Water -Foul Odor after Cleansing No -Anesthetic Used 5% Lidocaine Gel - Nurse 2 - General Ulcer CM Notes Start: 05/26/25 08:55 Freq: Status: Active Protocol: Activity Type Activity Date Activity User E-sign Co-sign Detail Recorded Client Recorded Date Recorded By Document 05/26/25 09:32 [email or web address] [id number] 05/26/25 09:35 JF 05/26/25 09:32 Wound Center Nurse 2 #1 L Med Thigh -Correct Patient Yes -Correct Side, Site, Position No -Correct Procedure No -Procedure Performed No LOWER LEFT ABD -Time 09:32 -Correct Patient Yes -Correct Side, Site, Position Yes -Correct Procedure Yes -Procedure Performed Yes -Type of Procedure Debridement -Clinical Debridement Subcutaneous -Tissue Removed Subcutaneous -Post Debridement (cm) - Length 1.6 -Post Debridement (cm) - Width 5.8 -Post Debridement (cm) - Depth 0.9 -Total Square (Post) (cm) 9.28 -Area of Debridement (cm) - Length 1.6 -Area of Debridement (cm) - Width 5.8 -Total Square (Area) (cm) 9.28 -Tunneling No -Undermining/Tunneling No -Circular Undermining No -Wound/Ulcer Outcome Not Healed -Ulcer Cleansing Rinsed/ Irrigated with Saline -Foul Odor after Cleansing No -Bioengineered Tissue No -Bleeding Controlled with Pressure -Treatment Response Procedure Tolerated Well -Offloading No -Debridement - Subq, 1st 20sq cm Yes Pain Scale: 0-10 Numeric Is Patient Pain Free? Yes - Nurse 3 - General Ulcer D/C NN Start: 05/26/25 08:55 Freq: Status: Active Protocol: Activity Type Activity Date Activity User E-sign Co-sign Detail Recorded Client Recorded Date Recorded By Document 05/26/25 09:48 DL [id number] 05/26/25 09:48 DL 05/26/25 09:48 Wound Care Center Nurse 3 LOWER LEFT ABD -Ulcer Cleansing Rinsed/ Irrigated with Saline -Primary Dressing Applied Hysept -Other Dressing dakins -Primary Dressing Covered/Secured with Secured with Tape -Hysept 1 Treatment Response Procedure Tolerated Well Pain Scale: 0-10 Numeric Is Patient Pain Free? Yes WC - Visit Discharge Discharge Condition Stable Ambulatory Status Ambulatory Transportation Private [facility] Facility Type Home Health Orders Sent Yes Assessment/Plan Assessment/Plan (1) Open chest wound: CODE(S): S21.109A - Unspecified open wound of unspecified front wall of thorax without penetration into thoracic cavity, initial encounter PLAN: Smaller wound and without signs of infection Continue Dakin's wet-to-dry dressings twice daily Follow-up with me in 2 weeks
[2025-06-09 09:02] VITALS: BP 122/72; PULSE 84; RESP 16; TEMP 36.2
--- NOTE | 2025-06-09 09:34 | PN.PCM_ITS ---
History of Present Illness Date of Service: 05/26/25 Chief Complaint: Left medial thigh wound after I&D in ED History of Wound: Tom Patel is a delightful 84-year-old male with history of metastatic melanoma from a primary lesion on his right lower chest which was excised for wide local excision on 25 April 2025. He unfortunately developed an abscess postop week 1 which was drained on 02 May 2025 and packed. He was placed on clindamycin. Cultures growing Enterococcus faecalis and E. coli. 05 May 2025: Patient doing better today and feels well. No fevers or chills. Reports no purulent drainage. Reports compliance with packing the wound. Subjective Subjective 12 May 2025: The patient is an 84-year-old male presenting with wound care management and follow-up on radiation therapy. He is nearing the end of his radiation therapy, with two sessions left, and reports that the treatment has been well-tolerated despite scheduling adjustments. The patient is managing a wound with Dakins solution applied twice daily, which has improved significantly, showing no signs of infection. He has completed his antibiotic regimen and continues regular dressing changes. Attestation: Documentation on this patient encounter was supported using ambient scribe technology/ voice AI technology. The patient consented to recording for the purpose of documenting the encounter. Provider reviewed content of the generated note prior to signature. 26 May 2025: Doing well. Finished antibiotics. Finished radiation therapy. No fevers/chills/drainage CURRENT ENCOUNTER, 09 Jun 2025: Doing well. Feels like wound smaller. Tolerating radiation to the metastatic tumor and no bleeding. Objective Data Objective Data Vital Signs: Vital Signs Temp Pulse Resp BP 97.2 F L 84 16 122/72 H 06/09/25 09:02 06/09/25 09:02 06/09/25 09:02 06/09/25 09:02 Charges/Coding Procedures Integumentary 111xxx-113xx: 36088 Emely subq tissue 20 sq cm/< Physical Exam Narrative - Integumentary: Wound on the right upper quadrant of the abdomen/right lower chest, down to the SubQ level, with granulation tissue present, no signs of infection or fluid collection. Healing well and smaller today 3 x 1 cm and is 0.3 cm deep Const alert and oriented x3 General Appearance: frail Psych Attitude: other argumentative alternating with calm; initial part of the conversation patient asserts that he has done his own research and despite my attempts to educate him otherwise he continues to ascertain that 97 % of people that take Keytruda have very bad side effects Debridement Note Debridement Note Wound debrided: Right chest wound Laterality: Right Wound Grade/Stage: Stage 3, 3 x 1 cm into subQ Type of Debridement: Excisional debridement Anesthesia Used: 4% Lidocaine Solution Depth: in the subcutaneous layer Percentage of wound debrided: 100 Instrument Used: 5mm curette Tissue Removed: Fibrinous exudate and biofilm Severity: Fat Layer Exposed Amount of bleeding with debridement: Mild Bleeding Controlled with: Compression and gauze Patient tolerated procedure: Patient tolerated procedure well Post-Debridement Measurements and Additional Note: Post-Debridement Measurements/Treatment WC - Nurse 1 - General Ulcer Assessment Start: 05/26/25 08:55 Freq: Status: Active Protocol: BEKAH Activity Type Activity Date Activity User E-sign Co-sign Detail Recorded Client Recorded Date Recorded By Document 05/26/25 08:55 DL [id number] 05/26/25 09:04 DL Document 06/09/25 09:02 DL [id number] 06/09/25 09:11 DL 05/26/25 06/09/25 08:55 09:02 - Today's Visit Information Type of service Follow-up Visit Follow-up Visit (Physician/ENROBING MACHINE OPERATOR (Physician/ENROBING MACHINE OPERATOR ) ) Arrival Mode Ambulatory Ambulatory Transfer Assistance None None Patient Identification Verified (Name & Yes Yes ) Patient Requires Transmission-Based No No Precautions Vital Signs Temperature (97.8 F-99.1 F) 97.7 F L 97.2 F L Temperature Source Temporal Temporal Pulse Rate (60-100) 96 84 Pulse Location Monitor Monitor Respiratory Rate (12-18) 16 16 Respiratory rate source Observation Observation Blood Pressure (90/60-120/80) 125/73 H 122/72 H Blood Pressure Mean (mm Hg) 90 88 Source Monitor Monitor History Since Last Visit- (Skip if this is Patient's initial visit) Have you changed medications since your No last visit? Any new allergies or adverse reactions No Had a fall/change in ADL's that may No increase risk of falls Signs or symptoms of abuse and/or No neglect since last visit Have you been in the hospital since your No last visit? Has dressing in place as prescribed Yes Has compression in place as prescribed N/A Has offloadiing in place as prescribed N/A Experienced any changes in pain level or No management Pain Scale: 0-10 Numeric Is Patient Pain Free? Yes Yes WC - Nurse 1 - General Ulcer Measurement Start: 05/26/25 08:55 Freq: Status: Active Protocol: Activity Type Activity Date Activity User E-sign Co-sign Detail Recorded Client Recorded Date Recorded By Document 05/26/25 08:55 DL [id number] 05/26/25 09:04 DL Document 06/09/25 09:02 DL [id number] 06/09/25 09:11 DL 05/26/25 06/09/25 08:55 09:02 Wound Center Nurse 1 LOWER LEFT ABD -Current Size (cm) - Length 1.6 0.9 -Current Size (cm) - Width 5.8 3.1 -Current Size (cm) - Depth 0.9 0.4 -Total Square Cm 9.28 2.79 -Exudate Amt Medium -Exudate Type Serosanguineous -Wound Margin Distinct, Outline Attached -Granulation Amt Large (67-100%) -Granulation Quality Red -Necrosis Amt None Present (0 %) -Structure Exposed N/A -Texture (Juanita-wound Skin Appearance) Scarring -Moisture (Juanita-wound Skin Appearance) No Abnormality -Color (Juanita-wound Skin Appearance) No Abnormality -Temperature (Juanita-wound Skin No Abnormality Appearance) (Pt Warm) -Ulcer Cleansing Soap and Water -Foul Odor after Cleansing No -Anesthetic Used 5% Lidocaine Gel NADINE - Nurse 2 - General Ulcer CM Notes Start: 05/26/25 08:55 Freq: Status: Active Protocol: Activity Type Activity Date Activity User E-sign Co-sign Detail Recorded Client Recorded Date Recorded By Document 05/26/25 09:32 [id number] 05/26/25 09:35 Document 06/09/25 09:19 [id number] 06/09/25 09:21 05/26/25 06/09/25 09:32 09:19 Wound Center Nurse 2 #1 L Med Thigh -Correct Patient Yes -Correct Side, Site, Position No -Correct Procedure No -Procedure Performed No LOWER LEFT ABD -Time 09:32 09:19 -Correct Patient Yes Yes -Correct Side, Site, Position Yes Yes -Correct Procedure Yes Yes -Procedure Performed Yes Yes -Type of Procedure Debridement Debridement -Clinical Debridement Subcutaneous Subcutaneous -Tissue Removed Subcutaneous Subcutaneous -Post Debridement (cm) - Length 1.6 3.0 -Post Debridement (cm) - Width 5.8 1.0 -Post Debridement (cm) - Depth 0.9 0.3 -Total Square (Post) (cm) 9.28 3.00 -Area of Debridement (cm) - Length 1.6 3.0 -Area of Debridement (cm) - Width 5.8 1.0 -Total Square (Area) (cm) 9.28 3.00 -Tunneling No No -Undermining/Tunneling No No -Circular Undermining No No -Wound/Ulcer Outcome Not Healed Not Healed -Ulcer Cleansing Rinsed/ Rinsed/ Irrigated with Irrigated with Saline Saline -Foul Odor after Cleansing No No -Bioengineered Tissue No No -Bleeding Controlled with Pressure Pressure -Treatment Response Procedure Procedure Tolerated Well Tolerated Well -Offloading No No -Debridement - Subq, 1st 20sq cm Yes Yes Pain Scale: 0-10 Numeric Is Patient Pain Free? Yes Yes - Nurse 3 - General Ulcer D/C NN Start: 05/26/25 08:55 Freq: Status: Active Protocol: Activity Type Activity Date Activity User E-sign Co-sign Detail Recorded Client Recorded Date Recorded By Document 05/26/25 09:48 DL [id number] 05/26/25 09:48 DL 05/26/25 09:48 Wound Care Center Nurse 3 LOWER LEFT ABD -Ulcer Cleansing Rinsed/ Irrigated with Saline -Primary Dressing Applied Hysept -Other Dressing dakins -Primary Dressing Covered/Secured with Secured with Tape -Hysept 1 Treatment Response Procedure Tolerated Well Pain Scale: 0-10 Numeric Is Patient Pain Free? Yes - Visit Discharge Discharge Condition Stable Ambulatory Status Ambulatory Transportation Private [facility] Facility Type Home Health Orders Sent Yes Assessment/Plan Assessment/Plan (1) Open chest wound: CODE(S): S21.109A - Unspecified open wound of unspecified front wall of thorax without penetration into thoracic cavity, initial encounter PLAN: Smaller wound and without signs of infection Discontinue Dakin's wet-to-dry dressings and do Candy daily Follow-up with me in 3 weeks
--- NOTE | 2025-06-09 09:34 | PN.PCM_ITS ---
History of Present Illness Date of Service: 05/26/25 Chief Complaint: Left medial thigh wound after I&D in ED History of Wound: Tom Patel is a delightful 84-year-old male with history of metastatic melanoma from a primary lesion on his right lower chest which was excised for wide local excision on 25 April 2025. He unfortunately developed an abscess postop week 1 which was drained on 02 May 2025 and packed. He was placed on clindamycin. Cultures growing Enterococcus faecalis and E. coli. 05 May 2025: Patient doing better today and feels well. No fevers or chills. Reports no purulent drainage. Reports compliance with packing the wound. Subjective Subjective 12 May 2025: The patient is an 84-year-old male presenting with wound care management and follow-up on radiation therapy. He is nearing the end of his radiation therapy, with two sessions left, and reports that the treatment has been well-tolerated despite scheduling adjustments. The patient is managing a wound with Dakins solution applied twice daily, which has improved significantly, showing no signs of infection. He has completed his antibiotic regimen and continues regular dressing changes. Attestation: Documentation on this patient encounter was supported using ambient scribe technology/ voice AI technology. The patient consented to recording for the purpose of documenting the encounter. Provider reviewed content of the generated note prior to signature. 26 May 2025: Doing well. Finished antibiotics. Finished radiation therapy. No fevers/chills/drainage CURRENT ENCOUNTER, 09 Jun 2025: Doing well. Feels like wound smaller. Tolerating radiation to the metastatic tumor and no bleeding. Objective Data Objective Data Vital Signs: Vital Signs Temp Pulse Resp BP 97.2 F L 84 16 122/72 H 06/09/25 09:02 06/09/25 09:02 06/09/25 09:02 06/09/25 09:02 Charges/Coding Procedures Integumentary 111xxx-113xx: [id number] Emely subq tissue 20 sq cm/< Physical Exam Narrative - Integumentary: Wound on the right upper quadrant of the abdomen/right lower chest, down to the SubQ level, with granulation tissue present, no signs of infection or fluid collection. Healing well and smaller today 3 x 1 cm and is 0.3 cm deep Const alert and oriented x3 General Appearance: frail Psych Attitude: other argumentative alternating with calm; initial part of the conversation patient asserts that he has done his own research and despite my attempts to educate him otherwise he continues to ascertain that 97 % of people that take Keytruda have very bad side effects Debridement Note Debridement Note Wound debrided: Right chest wound Laterality: Right Wound Grade/Stage: Stage 3, 3 x 1 cm into subQ Type of Debridement: Excisional debridement Anesthesia Used: 4% Lidocaine Solution Depth: in the subcutaneous layer Percentage of wound debrided: 100 Instrument Used: 5mm curette Tissue Removed: Fibrinous exudate and biofilm Severity: Fat Layer Exposed Amount of bleeding with debridement: Mild Bleeding Controlled with: Compression and gauze Patient tolerated procedure: Patient tolerated procedure well Post-Debridement Measurements and Additional Note: Post-Debridement Measurements/Treatment WC - Nurse 1 - General Ulcer Assessment Start: 05/26/25 08:55 Freq: Status: Active Protocol: BEKAH Activity Type Activity Date Activity User E-sign Co-sign Detail Recorded Client Recorded Date Recorded By Document 05/26/25 08:55 DL [id number] 05/26/25 09:04 DL Document 06/09/25 09:02 DL [id number] 06/09/25 09:11 DL 05/26/25 06/09/25 08:55 09:02 - Today's Visit Information Type of service Follow-up Visit Follow-up Visit (Physician/WEARING APPAREL PRESSER (Physician/WEARING APPAREL PRESSER ) ) Arrival Mode Ambulatory Ambulatory Transfer Assistance None None Patient Identification Verified (Name & Yes Yes ) Patient Requires Transmission-Based No No Precautions Vital Signs Temperature (97.8 F-99.1 F) 97.7 F L 97.2 F L Temperature Source Temporal Temporal Pulse Rate (60-100) 96 84 Pulse Location Monitor Monitor Respiratory Rate (12-18) 16 16 Respiratory rate source Observation Observation Blood Pressure (90/60-120/80) 125/73 H 122/72 H Blood Pressure Mean (mm Hg) 90 88 Source Monitor Monitor History Since Last Visit- (Skip if this is Patient's initial visit) Have you changed medications since your No last visit? Any new allergies or adverse reactions No Had a fall/change in ADL's that may No increase risk of falls Signs or symptoms of abuse and/or No neglect since last visit Have you been in the hospital since your No last visit? Has dressing in place as prescribed Yes Has compression in place as prescribed N/A Has offloadiing in place as prescribed N/A Experienced any changes in pain level or No management Pain Scale: 0-10 Numeric Is Patient Pain Free? Yes Yes WC - Nurse 1 - General Ulcer Measurement Start: 05/26/25 08:55 Freq: Status: Active Protocol: Activity Type Activity Date Activity User E-sign Co-sign Detail Recorded Client Recorded Date Recorded By Document 05/26/25 08:55 DL [id number] 05/26/25 09:04 DL Document 06/09/25 09:02 DL [id number] 06/09/25 09:11 DL 05/26/25 06/09/25 08:55 09:02 Wound Center Nurse 1 LOWER LEFT ABD -Current Size (cm) - Length 1.6 0.9 -Current Size (cm) - Width 5.8 3.1 -Current Size (cm) - Depth 0.9 0.4 -Total Square Cm 9.28 2.79 -Exudate Amt Medium -Exudate Type Serosanguineous -Wound Margin Distinct, Outline Attached -Granulation Amt Large (67-100%) -Granulation Quality Red -Necrosis Amt None Present (0 %) -Structure Exposed N/A -Texture (Juanita-wound Skin Appearance) Scarring -Moisture (Juanita-wound Skin Appearance) No Abnormality -Color (Juanita-wound Skin Appearance) No Abnormality -Temperature (Juanita-wound Skin No Abnormality Appearance) (Pt Warm) -Ulcer Cleansing Soap and Water -Foul Odor after Cleansing No -Anesthetic Used 5% Lidocaine Gel NADINE - Nurse 2 - General Ulcer CM Notes Start: 05/26/25 08:55 Freq: Status: Active Protocol: Activity Type Activity Date Activity User E-sign Co-sign Detail Recorded Client Recorded Date Recorded By Document 05/26/25 09:32 [id number] 05/26/25 09:35 Document 06/09/25 09:19 [id number] 06/09/25 09:21 05/26/25 06/09/25 09:32 09:19 Wound Center Nurse 2 #1 L Med Thigh -Correct Patient Yes -Correct Side, Site, Position No -Correct Procedure No -Procedure Performed No LOWER LEFT ABD -Time 09:32 09:19 -Correct Patient Yes Yes -Correct Side, Site, Position Yes Yes -Correct Procedure Yes Yes -Procedure Performed Yes Yes -Type of Procedure Debridement Debridement -Clinical Debridement Subcutaneous Subcutaneous -Tissue Removed Subcutaneous Subcutaneous -Post Debridement (cm) - Length 1.6 3.0 -Post Debridement (cm) - Width 5.8 1.0 -Post Debridement (cm) - Depth 0.9 0.3 -Total Square (Post) (cm) 9.28 3.00 -Area of Debridement (cm) - Length 1.6 3.0 -Area of Debridement (cm) - Width 5.8 1.0 -Total Square (Area) (cm) 9.28 3.00 -Tunneling No No -Undermining/Tunneling No No -Circular Undermining No No -Wound/Ulcer Outcome Not Healed Not Healed -Ulcer Cleansing Rinsed/ Rinsed/ Irrigated with Irrigated with Saline Saline -Foul Odor after Cleansing No No -Bioengineered Tissue No No -Bleeding Controlled with Pressure Pressure -Treatment Response Procedure Procedure Tolerated Well Tolerated Well -Offloading No No -Debridement - Subq, 1st 20sq cm Yes Yes Pain Scale: 0-10 Numeric Is Patient Pain Free? Yes Yes - Nurse 3 - General Ulcer D/C NN Start: 05/26/25 08:55 Freq: Status: Active Protocol: Activity Type Activity Date Activity User E-sign Co-sign Detail Recorded Client Recorded Date Recorded By Document 05/26/25 09:48 DL [id number] 05/26/25 09:48 DL 05/26/25 09:48 Wound Care Center Nurse 3 LOWER LEFT ABD -Ulcer Cleansing Rinsed/ Irrigated with Saline -Primary Dressing Applied Hysept -Other Dressing dakins -Primary Dressing Covered/Secured with Secured with Tape -Hysept 1 Treatment Response Procedure Tolerated Well Pain Scale: 0-10 Numeric Is Patient Pain Free? Yes - Visit Discharge Discharge Condition Stable Ambulatory Status Ambulatory Transportation Private [facility] Facility Type Home Health Orders Sent Yes Assessment/Plan Assessment/Plan (1) Open chest wound: CODE(S): S21.109A - Unspecified open wound of unspecified front wall of thorax without penetration into thoracic cavity, initial encounter PLAN: Smaller wound and without signs of infection Discontinue Dakin's wet-to-dry dressings and do Candy daily Follow-up with me in 3 weeks
--- NOTE | 2025-06-10 10:30 | WC ---
PHOTO-ABD 06/09/25
--- NOTE | 2025-06-10 10:30 | WC ---
PHOTO-ABD 06/09/25
== END 2025-06-15 23:59 | disposition home or self-care (01) ==
LOC: WC 09:00
PROVIDERS: PCP Family Medicine Geriatric Medicine; Referring Provider Family Medicine Geriatric Medicine; Visit Provider Surgery Plastic and Reconstructive Surgery
DX: T81.89XA Other complications of procedures, not elsewhere classified, initial encounter (principal); S21.101A Unspecified open wound of right front wall of thorax without penetration into thoracic cavity, initial encounter; Z79.82 Long term (current) use of aspirin; Z79.890 Hormone replacement therapy; Z79.899 Other long term (current) drug therapy; Z85.820 Personal history of malignant melanoma of skin; Z92.3 Personal history of irradiation
CPT/HCPCS: 11042

== ENCOUNTER 2025-06-26 09:33 | Day surgery (SDC) | payer MEDICARE, OTHER, SELFPAY ==
[2020-12-23 09:20] VITALS: BMI 29.0
--- NOTE | 2025-06-20 14:53 | PAT.ANE_ITS ---
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 When Was Last Pacemaker Check QUESTION #4 FULL TEXT: You/Your Family Experience fever (hyperthermia) with Anesthesia Last Oral Intake Last Oral intake: Last Oral Intake NPO since Meds taken in AM with sips of water? Meds patient instructed to take am of surgery PONV PONV - multiple knife edge trimmer operator: PONV - multiple knife edge trimmer operator Female No 06/20/25 10:23 HX of Motion Sickness No 06/20/25 10:23 HX of N/V After Surgery No 06/20/25 10:23 Non-Smoker Yes 06/20/25 10:23 Duration of Surgery greater No 06/20/25 10:23 than 60 minutes Number of Risk Factors 1 06/20/25 10:23 PONV Score Low Risk 06/20/25 10:23 Height & Weight Height & Weight: Anesthesia: Height & Weight Height 5 ft 6 in 06/19/25 09:28 Respiratory Assessment Respiratory Assessment - multiple knife edge trimmer operator: Respiratory Tract Infection Hx - multiple knife edge trimmer operator Hx Respiratory Tract Infection No 06/20/25 10:23 STOP Sleep Apnea STOP Sleep Apnea - multiple knife edge trimmer operator: STOP Sleep Apnea - multiple knife edge trimmer operator Hx Hypertension Yes: PULM. HTN 06/20/25 10:23 Hx Sleep Apnea No 06/20/25 10:23 CPAP BIPAP Do you snore loudly (louder No 06/20/25 10:23 than talking or can be heard Do you often feel tired/ No 06/20/25 10:23 fatigued/ sleepy during daytime? Has anyone observed you stop No 06/20/25 10:23 breathing during sleep? STOP Results Negative 06/20/25 10:23 QUESTION #5 FULL TEXT : Do you snore loudly (louder than talking or can be heard through closed doors)? 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 Specify any problems Hx of Preganancy in last 3 N/A 06/20/25 10:23 Months Nurse Filling Out Transfusion [facility] 06/20/25 10:23 & Questions: Date: 06/20/25 06/20/25 10:23 Time: 10:36 06/20/25 10:23 Patient unable to answer at this time (ie. confused, unrespo /Reproduction History /Reproductive History - multiple knife edge trimmer operator: /Reproductive Hx- multiple knife edge trimmer operator Hx Now No 06/20/25 10:23 Gestational Age (in weeks): EDC: Hx Hx Para Hx Section SAB PFSH Medical History (Updated 06/20/25 @ 10:34 by Evelin Nina) High cholesterol Open wound Wears glasses Cancer Encounter for education Loss of hearing Edentulous Anxiety Thyroid disease Prostate disease Easy bruising Blackout Chronic cough Former smoker History of irregular heartbeat History of echocardiogram Cardiology follow-up encounter Malignant melanoma COPD (chronic obstructive pulmonary disease) Essential hypertension Hyperlipidemia Open wound of left thigh Sepsis Abscess or cellulitis of thigh Atherosclerotic heart disease of [place] coronary artery without angina pectoris Non-rheumatic mitral regurgitation Pulmonary hypertension NSTEMI (non-ST elevated myocardial infarction) CHF (congestive heart failure) Home Medications ?Medication ?Instructions ?Recorded ?Last Taken ?Type tamsulosin 0.4 mg capsule 0.4 mg PO DAILY PROSTATE 04/24/25 History albuterol sulfate 2.5 mg/3 mL 2.5 mg inhalation Q6H HI N 09/23/21 Unknown History (0.083 %) solution for nebulization shortness of breat h or wheezing aspirin 81 mg tablet,delayed 81 mg PO DAILY #1 TAB 07/0604/21/25 Rx release furosemide 40 mg tablet 40 mg PO DAILY 04/04/2204/15 History metoprolol succinate 100 mg 50 mg PO BID 09/28/2204/15 History tablet,extended release 24 hr amlodipine 10 mg tablet 5 mg PO DAILY BP 12/21/23 History levothyroxine 125 mcg tablet 125 mcg PO DAILY 12/21/23 04/24/25 History magnesium oxide 400 mg (241.3 mg 400 mg PO BID 5 04/24/25 History magnesium) tablet potassium chloride 10 mEq 10 meq PO DAILY 03/14/2508/09 History capsule,extended release cetirizine 10 mg tablet (24Hour 10 mg PO DAILY PRN all ergy symptoms 04/25/25 04/25/25 History Allergy) atorvastatin 40 mg tablet 40 mg PO QHS for cholesterol #90 05/05/25 Unknown Rx TABLETS Allergy/AdvReac Type Severity Reaction Status Date / Time amoxicillin (From Augmentin) Allergy Rash Verified 06/19/25 09:34 clavulanic acid (From Allergy Rash Verified 06/19/25 09:34 Augmentin) oxycodone AdvReac Intermediate OTHER Verified 06/19/25 09:34 Opioids - Morphine Analogues AdvReac Low blood Verified 06/19/25 09:34 pressure Family History Grandmother CAD (coronary artery disease) Father CAD (coronary artery disease) Surgical History History of external ear surgery History of coronary artery bypass surgery (~11/25/20) Social History Smoking Status: Former smoker Tobacco: How many years used: 20 alcohol intake: never substance use type: does not use caffeine: Yes Type: coffee Number of servings: 4 additional social history: pt denies vaping, pt denies marijuana, pt denies smoking pt uses ibuprofen as needed pt uses aspirin daily Audit: Pertinent Findings Pertinent Findings EKG Perinent findings: 12/28/2020. Normal sinus rhythm with sinus arrhythmia. Septal infarct, age undetermined. Echo (EF%) pertinent findings: 09/30/2021. EF of 50%. RVSP of 29 mmHg. Mild aortic stenosis. Heart catheterization pertinent findings: November 17, 2020. Mild pulmonary hype rtension. EF of 40%. Anterior hypokinesis. Apical hypokinesis. Left main has 50% stenosis. Proximal LAD has a 99% stenosis. Circumflex has a 50% stenosis of the ostial circumflex. Proximal RCA has a 50% stenosis. Consult pertinent findings: 07/11/2024. Dr. Negrete. 1. History of coronary artery bypass graft-BLEVINS to the LAD. CY/SVG tandem graft to the ramus. [place] current medical therapy. 2. Cardiomyopathy, ischemic-EF has been improving, 50% on last echo in September 2021. 3. Hypertension?well-controlled. Reduce amlodipine to 5 mg. Recommendation Anesthesia Recommendation Anesthesia recommendation: OPTIMIZED for anesthesia
[2025-06-26] VITALS (7 sets, daily range): BP systolic 106–146; BP diastolic 47–69; PULSE 83–104; RESP 16–20; TEMP 2.4–36.6; O2SAT 96–97; BMI 27.0
[2025-06-26] MEDS: Lactated Ringers 1,000 ML 15 ML IV (10:13)
--- NOTE | 2025-06-26 10:24 | PCM.PRE.AN2 ---
ASA Classification* ASA Classification ASA Classification: 3 Assessment & Plan Anesthesia* Anesthesia Assessment Anesthesia Assessment: Discussed sedation and/or anesthesia options, risks, benefits, and alternatives with patient/parents/legal guardian/POA. Questions invited. The patient/parents/legal guardian/POA seems to understand and agrees to proceed with anesthesia plan. Reviewed the physical assessment, medical history, allergy history and patient home medications list prior to surgery/procedure/anesthetic and documented any changes. Performed airway and anesthesia risk assessments. Anesthesia Type Anesthesia Type: MAC (Patient has mild aortic stenosis. Avoid increased heart rate and decrease blood pressure. Phenylephrine is drug of choice.) History Source History Obtained from:: Patient and Chart Anesthesia Focused Assessment* Temperature: 97.9 F Pulse Rate: 104 Blood Pressure: 146/69 Respiratory Rate: 20 Pulse Ox: 97 Oxygen Delivery Method: Room Air Airway Assessment Mouth opens: >3 cm Mallampati Score: I Teeth Condition: Missing (Patient is edentulous.) Neck Range of motion (ROM): Limited ROM (Severe Restriction) Labs Anesthesia Preop lab: CBC WBC 11.1 K/mm3 (4.4-11.0) H 06/19/25 08:52 06/19/25 RBC 3.99 M/mm3 (4.6-6.2) L 06/19/25 08:52 06/19/25 Hgb 11.3 g/dL (13.0-16.5) L 06/19/25 08:52 06/19/25 Hct 35.9 % (40-54) L 06/19/25 08:52 06/19/25 Plt Count 209 K/mm3 (150-450) 06/19/25 08:52 06/19/25 CHEMISTRY Potassium 4.0 mmol/L (3.3-5.1) 06/19/25 08:52 06/19/25 Sodium 139 mmol/L (133-145) 06/19/25 08:52 06/19/25 Magnesium 2.0 mg/dL (1.6-2.6) 09/15/20 15:00 09/15/20 Phosphorus 3.1 mg/dL (2.5-4.9) 09/15/20 15:00 09/15/20 BUN 15 mg/dL (4-19) 06/19/25 08:52 06/19/25 Creatinine 0.92 mg/dL (0.70-1.20) 06/19/25 08:52 06/19/25 Glucose 157 mg/dL (70-99) H 06/19/25 08:52 06/19/25 TSH 1.880 uIU/mL (0.300-4.200) 03/19/25 10:22 03/19/25 COAG PT 13.8 SECONDS (11.7-14.9) 12/28/20 09:35 12/28/20 Pre-Assessment Diagnosis/Proposed Procedure Planned Operative Procedure(s): COLONOSCOPY Anesthesia History Anesthesia History - product managent intern: Anesthesia History - product managent intern Hx Hospitalization No 06/20/25 10:23 Any Problems With Anesthesia Yes: CONFUSION AFTER MAC 06/20/25 10:23 LOCAL 04/2025, POOR APPETTITE Cholinesterase deficiency No 06/20/25 10:23 You/Your Family Experience No 06/20/25 10:23 fever (hyperthermia) with Relationship Recent Exposure to Contagious No 06/26/25 10:01 Disease Does patient have nerve No 06/20/25 10:23 stimulator Patient instructed to have device shut off --Does patient have Pacemaker No 06/26/25 10:01 or ICD? When Was Last Pacemaker Check QUESTION #4 FULL TEXT: You/Your Family Experience fever (hyperthermia) with Anesthesia Last Oral Intake Last Oral intake: Last Oral Intake NPO since 00:00 06/26/25 10:01 Meds taken in AM with sips of No 06/26/25 10:01 water? Meds patient instructed to take am of surgery PONV PONV - product managent intern: PONV - product managent intern Female No 06/20/25 10:23 HX of Motion Sickness No 06/20/25 10:23 HX of N/V After Surgery No 06/20/25 10:23 Non-Smoker Yes 06/20/25 10:23 Duration of Surgery greater No 06/20/25 10:23 than 60 minutes Number of Risk Factors 1 06/20/25 10:23 PONV Score Low Risk 06/20/25 10:23 Height & Weight Height & Weight: Anesthesia: Height & Weight Height 5 ft 6 in 06/26/25 10:01 Weight: 76 kg 06/26/25 10:01 Body Mass Index (BMI) 27.0 06/26/25 10:01 Respiratory Assessment Respiratory Assessment - product managent intern: Respiratory Tract Infection Hx - product managent intern Hx Respiratory Tract Infection No 06/20/25 10:23 STOP Sleep Apnea STOP Sleep Apnea - product managent intern: STOP Sleep Apnea - product managent intern Hx Hypertension Yes: PULM. HTN 06/20/25 10:23 Hx Sleep Apnea No 06/20/25 10:23 CPAP BIPAP Do you snore loudly (louder No 06/20/25 10:23 than talking or can be heard Do you often feel tired/ No 06/20/25 10:23 fatigued/ sleepy during daytime? Has anyone observed you stop No 06/20/25 10:23 breathing during sleep? STOP Results Negative 06/20/25 10:23 QUESTION #5 FULL TEXT : Do you snore loudly (louder than talking or can be heard through closed doors)? Tobacco Use History Tobacco Use History - product managent intern: Tobacco Use History - product managent intern Tobacco Use Smoking Status Former smoker 06/20/25 10:23 Hx Tobacco Use No 06/20/25 10:23 Years Smoking Packs Smoked per Day Smoking Cessation Date was No - quit smoking greater 06/20/25 10:23 within the last 15 years than 15 years ago Hx Smoking Cessation Date 10/16/85 06/20/25 10:23 Hx Smoking Cessation Counseling Hematologic Medial History Hematologic Hx - product managent intern: Hematologic Medical Hx - measuring clerk Hx of Blood Transfusion No 06/20/25 10:23 Hx of Transfusion in last 3 No 06/20/25 10:23 Months Date of Last Transfusion (if within last 3 months) Ever experience any problems No 06/20/25 10:23 with transfusion(s)? Specify any problems Hx of Preganancy in last 3 N/A 06/20/25 10:23 Months Nurse Filling Out Transfusion VLEHMAN 06/20/25 10:23 & Questions: Date: 06/20/25 06/20/25 10:23 Time: 10:36 06/20/25 10:23 Patient unable to answer at this time (ie. confused, unrespo /Reproduction History /Reproductive History - product managent intern: /Reproductive Hx- product managent intern Hx Now No 06/20/25 10:23 Gestational Age (in weeks): EDC: Hx Hx Para Hx Section SAB Active Medications Active Medications: Current Medications Generic Name Dose Route Start Last Admin Trade Name Freq PRN Reason Stop Dose Admin Lactated Ringer's 1,000 mls @ 15 mls/hr 06/26/25 10:00 06/26/25 10:13 IV 15 mls/hr .Q48H GAGAN Administration PFSH Medical History High cholesterol Open wound Wears glasses Cancer Encounter for education Loss of hearing Edentulous Anxiety Thyroid disease Prostate disease Easy bruising Blackout Chronic cough Former smoker History of irregular heartbeat History of echocardiogram Cardiology follow-up encounter Malignant melanoma COPD (chronic obstructive pulmonary disease) Essential hypertension Hyperlipidemia Open wound of left thigh Sepsis Abscess or cellulitis of thigh Atherosclerotic heart disease of [place] coronary artery without angina pectoris Non-rheumatic mitral regurgitation Pulmonary hypertension NSTEMI (non-ST elevated myocardial infarction) CHF (congestive heart failure) Home Medications ?Medication ?Instructions ?Recorded ?Last Taken ?Type tamsulosin 0.4 mg capsule 0.4 mg PO DAILY PROSTATE 11/30/20 04/24/25 History albuterol sulfate 2.5 mg/3 mL 2.5 mg inhalation Q6H PRN 09/23/21 Unknown History (0.083 %) solution for nebulization shortness of breath or wheezing aspirin 81 mg tablet,delayed 81 mg PO DAILY #1 TAB 09/23/21 04/21/25 Rx release furosemide 40 mg tablet 40 mg PO DAILY 04/04/22 04/24/25 History metoprolol succinate 100 mg 50 mg PO BID 09/28/22 04/24/25 History tablet,extended release 24 hr amlodipine 10 mg tablet 5 mg PO DAILY BP 12/21/23 04/24/25 History levothyroxine 125 mcg tablet 125 mcg PO DAILY 12/21/23 04/24/25 History magnesium oxide 400 mg (241.3 mg 400 mg PO BID 03/14/25 04/24/25 History magnesium) tablet potassium chloride 10 mEq 10 meq PO DAILY 03/14/25 04/24/25 History capsule,extended release cetirizine 10 mg tablet (24Hour 10 mg PO DAILY PRN allergy symptoms 04/25/25 04/25/25 History Allergy) atorvastatin 40 mg tablet 40 mg PO QHS for cholesterol #90 05/05/25 Unknown Rx TABLETS Allergy/AdvReac Type Severity Reaction Status Date / Time amoxicillin (From Augmentin) Allergy Rash Verified 06/26/25 10:01 clavulanic acid (From Allergy Rash Verified 06/26/25 10:01 Augmentin) Opioids - Morphine Analogues AdvReac Low blood Verified 06/26/25 10:01 pressure Family History Grandmother CAD (coronary artery disease) Father CAD (coronary artery disease) Surgical History History of external ear surgery History of coronary artery bypass surgery (~11/25/20) Social History Smoking Status: Former smoker Tobacco: How many years used: 20 alcohol intake: never substance use type: does not use caffeine: Yes Type: coffee Number of servings: 4 additional social history: pt denies vaping, pt denies marijuana, pt denies smoking pt uses ibuprofen as needed pt uses aspirin daily Review of Systems (Anesthesia) ROS Narrative System reviewed and no additional complaints, except as documented.
--- NOTE | 2025-06-26 10:30 | COLBX_PTH ---
PATIENT: JENNIFER CUNNINGHAM LOC: EN U#:[id number] AGE/SX: 84/M ROOM: RE06/26/[address]: Dr. Zoran Mojica MD : 1940 BED: DIS: 06/26/2025 SPEC #: [id number] RECD: 06/26/25 14:34 STATUS: PHILIP REMich #: [id number] KATHERINE: 06/26/25 10:[address]: Zoran Mojica DEPT: SURGICAL PATHOLOGY RECD BY: Gonzales Persaud ENTERED: 06/26/25 15:13 SP TYPE: COLON BX OTHR DR: Dr. Douglas Ball MD Tissues: A - Ascending colon Procedures: Surgery Specimen Level IV HEADER OPERATION: Colonoscopy with biopsy and tattoo PRE-OP DIAGNOSIS: Abnormal finding on imaging, ascending colon mass TISSUE SUBMITTED: A- Proximal ascending colon mass biopsy MICROSCOPIC DIAGNOSIS A. Ascending colon, mass, biopsy: * Poorly differentiated carcinoma (See note) Note: Immunohistochemical staining is performed and shows positive reactivity with AE1/AE3 and focal Calretinin. The following stains are negative: CDX2, CK20, CK7, INSM1 and SOX10. The findings support the diagnosis. The slides are reviewed with Dr. Ching in consultation Mismatch Repair Protein (MMR) Nuclear Expression by IHC: (present/intact or absent/lost) MLH1: absent/lost PMS2: absent/lost MSH2: present/intact MSH6: present/intact IHC Interpretation: ___No loss of nuclear expression of MMR proteins: low probability of microsatellite instability-high (MSI-H)# _X__ Loss of nuclear expression of MLH1 and PMS2: testing for methylation of the MLH1 promoter and/or mutation of BRAF is indicated (the presence of a BRAF V600E mutation and/or MLH1 methylation suggests that the tumor is sporadic and germline evaluation is probably not indicated; absence of both MLH1 methylation and of BRAF V600E mutation suggests the possibility of Hilliard syndrome, and sequencing and/or large deletion/duplication testing of germline MLH1 may be indicated)# ___ Loss of nuclear expression of MSH2 and MSH6: high probability of Hilliard syndrome (sequencing and/or large deletion/duplication testing of germline MSH2 may be indicated, and, if negative, sequencing and/or large deletion/duplication testing of germline MSH6 may be indicated)# ___ Loss of nuclear expression of MSH6 only: high probability of Hilliard syndrome (sequencing and/or large deletion/duplication testing of germline MSH6 may be indicated)# ___ Loss of nuclear expression of PMS2 only: high probability of Hilliard syndrome (sequencing and/or large deletion/duplication testing of germline PMS2 may be indicated)# # There are exceptions to the above IHC interpretations. These results should not be considered in isolation, and clinical correlation with genetic counseling is recommended to assess the need for germline testing. All controls show appropriate reactivity. All immunohistochemistry, in situ hybridization, and histochemical tests were developed by and are performed at the [facility], [address] [place] [address]. All Immunofluorescent (IF) tests were developed by and are performed at the [facility], [address] [place] [address]. All tests reported here, except those addressing HER2 overexpression as a predictive marker, have not been cleared by or approved by the [place] Food and Drug Administration (FDA). The laboratory is regulated under CLIA as qualified to perform high-complexity testing. The tests are used for clinical purposes. They should not be regarded as investigational or for research. The mismatch repair proteins are evaluated by immunohistochemistry on formalin-fixed, paraffin-embedded tissue, using clone [id number] for MLH1, clone [id number] for PMS2, clone RED2 for MSH2, and clone [id number] for MSH6, and Tissue Bradley Genie? Pro Detection Kit, DAB on the [employer] Tissue Bradley Genie Advanced Staining System. Convincing nuclear staining in > 1% of tumor cells that is as strong as internal control is considered present/intact. Complete absence of nuclear staining in tumor cells in the presence of nuclear expression in internal control cells is considered absent/lost. Rarely a discrete area of a tumor can show loss of staining with retained nuclear expression in the adjacent tumor cells and internal control cells, which is regarded as subclonal loss and can also be of clinical significance. MICROSCOPIC DESCRIPTION Slides are reviewed. GROSS DESCRIPTION A. Received in fixative is one container labeled with the patient's name and designated Proximal ascending colon mass biopsy. The specimen consists of multiple irregular fragments of light peña soft tissue that in aggregate measure 0.9 x 0.4 x 0.1 cm. The specimen is totally submitted in one cassette. ID 06/26/2025 CPT:[id number]
--- NOTE | 2025-06-26 10:44 | PCM.HP.STD ---
HPI - General General Date of Admission: 06/26/25 Date of Service: 06/26/25 Chief Complaint: Possible COLON MASS HPI Narrative JENNIFER CUNNINGHAM, is a 84 M who presents for colonoscopy - PET scan showed poss mass in colon [facility] Medical History High cholesterol Open wound Wears glasses Cancer Encounter for education Loss of hearing Edentulous Anxiety Thyroid disease Prostate disease Easy bruising Blackout Chronic cough Former smoker History of irregular heartbeat History of echocardiogram Cardiology follow-up encounter Malignant melanoma COPD (chronic obstructive pulmonary disease) Essential hypertension Hyperlipidemia Open wound of left thigh Sepsis Abscess or cellulitis of thigh Atherosclerotic heart disease of [place] coronary artery without angina pectoris Non-rheumatic mitral regurgitation Pulmonary hypertension NSTEMI (non-ST elevated myocardial infarction) CHF (congestive heart failure) Home Medications ?Medication ?Instructions ?Recorded ?Last Taken ?Type tamsulosin 0.4 mg capsule 0.4 mg PO DAILY PROSTATE 11/30/20 04/24/25 History albuterol sulfate 2.5 mg/3 mL 2.5 mg inhalation Q6H PRN 09/23/21 Unknown History (0.083 %) solution for nebulization shortness of breath or wheezing aspirin 81 mg tablet,delayed 81 mg PO DAILY #1 TAB 09/23/21 04/21/25 Rx release furosemide 40 mg tablet 40 mg PO DAILY 04/04/22 04/24/25 History metoprolol succinate 100 mg 50 mg PO BID 09/28/22 04/24/25 History tablet,extended release 24 hr amlodipine 10 mg tablet 5 mg PO DAILY BP 12/21/23 04/24/25 History levothyroxine 125 mcg tablet 125 mcg PO DAILY 12/21/23 04/24/25 History magnesium oxide 400 mg (241.3 mg 400 mg PO BID 03/14/25 04/24/25 History magnesium) tablet potassium chloride 10 mEq 10 meq PO DAILY 03/14/25 04/24/25 History capsule,extended release cetirizine 10 mg tablet (24Hour 10 mg PO DAILY PRN allergy symptoms 04/25/25 04/25/25 History Allergy) atorvastatin 40 mg tablet 40 mg PO QHS for cholesterol #90 05/05/25 Unknown Rx TABLETS Allergy/AdvReac Type Severity Reaction Status Date / Time amoxicillin (From Augmentin) Allergy Rash Verified 06/26/25 10:01 clavulanic acid (From Allergy Rash Verified 06/26/25 10:01 Augmentin) Opioids - Morphine Analogues AdvReac Low blood Verified 06/26/25 10:01 pressure Family History Grandmother CAD (coronary artery disease) Father CAD (coronary artery disease) Surgical History History of external ear surgery History of coronary artery bypass surgery (~11/25/20) Social History Smoking Status: Former smoker Tobacco: How many years used: 20 alcohol intake: never substance use type: does not use caffeine: Yes Type: coffee Number of servings: 4 additional social history: pt denies vaping, pt denies marijuana, pt denies smoking pt uses ibuprofen as needed pt uses aspirin daily Vital Signs Vital Signs Vital Signs: 06/26/25 10:01 06/26/25 10:01 06/26/25 10:41 Temperature 97.9 F 97.9 F Temperature Source Temporal Pulse Rate 104 H 104 H Respiratory Rate 20 H 20 H Respiratory Pattern Normal Blood Pressure 146/69 H 146/69 H Blood Pressure Mean 94 Blood Pressure Source Monitor Blood Pressure Position Semi-Fowlers Blood Pressure Location Left Arm Pulse Ox 97 97 Oxygen Delivery Method Room Air Room Air Weight Weight: 167 lb 8.821 oz Body Mass Index (BMI) 27.0 Physical Exam Const alert, oriented x3 and no apparent distress HEENT normocephalic Head and Scalp: normal to inspection, normocephalic and atraumatic Assessment & Plan Assessment/Plan (1) Abnormal finding on imaging: PLAN: Plan colonoscopy today
[2025-06-26] MEDS: Lidocaine 1% (5 ml sdv) 5 ML Vial IV (10:52)
[2025-06-26] MEDS: Lactated Ringers 500 ML IV (10:52)
--- NOTE | 2025-06-26 11:29 | PCM.POST.ANE ---
Anesthesia: Postop Eval I Current Vital Signs Temperature: 36.4 F Pulse Rate: 84 Blood Pressure: 106/47 Respiratory Rate: 16 Pulse Ox: 97 Oxygen Delivery Method: Room Air Assessment Airway patent: Yes Spontaneous unlabored respirations: Yes Mental status: Awake and Calm nausea: No Vomiting: No Anesthesia Complication: No Fluid Hydration Crystalloid volume administer (ml): 500 Total IV fluid infused: 500 Progress Note Anesthesia document: Postop Eval 1 completed: Yes
--- NOTE | 2025-06-26 11:33 | OP.COLON_ITS ---
Patient Name: Tom Patel Procedure Date: 06/26/2025 10:19 AM Date of : 1940 Age: 84 Procedure: Colonoscopy Indications: Abnormal PET scan of the GI tract Providers: Zoran Mojica MD Medicines: Monitored Anesthesia Care Patient Profile: Refer to note in patient chart for documentation of history and physical. Last Colonoscopy: none. The patient's first colonoscopy is today. Complications: No immediate complications. Estimated blood loss: Minimal. Procedure: Pre-Anesthesia Assessment: - Prior to the procedure, a History and Physical was performed, and patient medications and allergies were reviewed. The patient's tolerance of previous anesthesia was also reviewed. The risks and benefits of the procedure and the sedation options and risks were discussed with the patient. All questions were answered, and informed consent was obtained. Prior Anticoagulants: The patient has taken no anticoagulant or antiplatelet agents. ASA Grade Assessment: III - A patient with severe systemic disease. After reviewing the risks and benefits, the patient was deemed in satisfactory condition to undergo the procedure. After I obtained informed consent, the scope was passed under direct vision. Throughout the procedure, the patient's blood pressure, pulse, and oxygen saturations were monitored continuously. The colonoscope was introduced through the anus and advanced to the cecum, identified by the appendiceal orifice, ileocecal valve and palpation. The ileocecal valve, appendiceal orifice, and rectum were photographed. The entire colon was visualized. The colonoscopy was somewhat difficult due to unsatisfactory bowel prep. The patient tolerated the procedure well. The quality of the bowel preparation was unsatisfactory. Moderate Sedation: See the other procedure note for documentation of moderate sedation with intraservice time. Scope In: 10:57:24 AM Scope Withdrawal Time 0 hours 12 minutes 40 seconds Scope Out: 11:18:57 AM Total Procedure Duration Time 0 hours 21 minutes 33 seconds Findings: The perianal and digital rectal examinations were normal. Multiple small and large-mouthed diverticula were found in the sigmoid colon. Internal hemorrhoids were found during retroflexion. The hemorrhoids were moderate. An ulcerated non-obstructing medium-sized mass was found in the proximal ascending colon. The mass was non-circumferential. The mass measured five cm in length. No bleeding was present. Biopsies were taken with a cold forceps for histology. Verification of patient identification for the specimen was done by the nurse using the patient's name, date and medical record number. Area was successfully injected with 5 mL Spot (carbon black) for tattooing. Estimated blood loss was minimal. The exam was otherwise without abnormality on direct and retroflexion views. Impression: - Preparation of the colon was unsatisfactory. - Diverticulosis in the sigmoid colon. - Internal hemorrhoids. - Malignant tumor in the proximal ascending colon. Biopsied. Injected. - The examination was otherwise normal on direct and retroflexion views. Recommendation: - Discharge patient to home (ambulatory). - High fiber diet. - Await pathology results. - Repeat colonoscopy in 1 year for surveillance. - Return to my office in 2 weeks. - Continue present medications. Procedure Code(s): --- Professional --- 41000, Colonoscopy, flexible; with biopsy, single or multiple 43951, Colonoscopy, flexible; with directed submucosal injection(s), any substance Diagnosis Code(s): --- Professional --- K64.8, Other hemorrhoids C18.2, Malignant neoplasm of ascending colon R93.3, Abnormal findings on diagnostic imaging of other parts of digestive tract K57.30, Diverticulosis of large intestine without perforation or abscess without bleeding CPT copyright 2021 [employer]. All rights reserved. The codes documented in this report are preliminary and upon [employer] hcm consultant review may be revised to meet current compliance requirements. Zoran Mojica MD 06/26/2025 11:32:44 AM This report has been signed electronically. Number of Addenda: 0 Note Initiated On: 06/26/2025 10:19 AM
--- NOTE | 2025-06-26 11:33 | OP.PROVAT_ITS ---
06/26/2025 Douglas Ball MD [address] [place] [address] Re : Colonoscopy procedure for Tom Patel Dear Dr. Ball This procedure was performed on June. My impressions and recommendations are as follows: Impressions : - Preparation of the colon was unsatisfactory. - Diverticulosis in the sigmoid colon. - Internal hemorrhoids. - Malignant tumor in the proximal ascending colon. Biopsied. Injected. - The examination was otherwise normal on direct and retroflexion views. Recommendations : - Discharge patient to home (ambulatory). - High fiber diet. - Await pathology results. - Repeat colonoscopy in 1 year for surveillance. - Return to my office in 2 weeks. - Continue present medications. My findings are described in the full procedure note, which is enclosed. If I can be of further assistance, please feel free to contact me at . Sincerely, Zoran Mojica MD 06/26/2025 11:32:44 AM This report has been signed electronically.
--- NOTE | 2025-06-26 14:26 | POSTOPAN2_ITS ---
Anesthesia Postop Eval I Sum Postop Eval Completion status Anesthesia document: Postop Eval 1 completed: Yes Anesthesia Postop Eval I Summary Anesthesia Postop Eval I Summary: Anesthesia Postop Eval I: Assessment Summary Airway patent Yes 06/26/25 11:30 [email or web address] Spontaneous unlabored Yes 06/26/25 11:30 [email or web address] respirations Mental status Awake,Calm 06/26/25 11:30 [email or web address] nausea No 06/26/25 11:30 [email or web address] Vomiting No 06/26/25 11:30 [email or web address] Anesthesia Postop Eval I: Fluid Summary Crystalloid volume administer 500 06/26/25 11:30 [email or web address] (ml) Colloids volume administered ( ml) Blood Product volume administered (ml) Total IV fluid infused 500 06/26/25 11:30 [email or web address] Anesthesia Postop Eval I: Summary Notes Anesthesia Complication No 06/26/25 11:30 [email or web address] Anesthesia Complication Comment: Post-operative progress note Anesthesia: Postop Eval II Evaluation Mental status: Awake Pain Level: 0 nausea: No Vomiting: No Complications Anesthesia Complication: No
--- NOTE | 2025-06-26 14:26 | PCM.POSTANE2 ---
Anesthesia Postop Eval I Sum Postop Eval Completion status Anesthesia document: Postop Eval 1 completed: Yes Anesthesia Postop Eval I Summary Anesthesia Postop Eval I Summary: Anesthesia Postop Eval I: Assessment Summary Airway patent Yes 06/26/25 11:30 [email or web address] [email or web address] Spontaneous unlabored Yes 06/26/25 11:30 BUZZSAW OPERATOR [email or web address] respirations Mental status Awake,Calm 06/26/25 11:30 BUZZSAW OPERATOR [email or web address] nausea No 06/26/25 11:30 BUZZSAW OPERATOR [email or web address] Vomiting No 06/26/25 11:30 BUZZSAW [email or web address] [email or web address] Anesthesia Postop Eval I: Fluid Summary Crystalloid volume administer 500 06/26/25 11:30 BUZZSAW OPERATOR [email or web address] (ml) Colloids volume administered ( ml) Blood Product volume administered (ml) Total IV fluid infused 500 06/26/25 11:30 BUZZSAW OPERATOR [email or web address] Anesthesia Postop Eval I: Summary Notes Anesthesia Complication No 06/26/25 11:30 BUZZSAW [email or web address] [email or web address] Anesthesia Complication Comment: Post-operative progress note Anesthesia: Postop Eval II Evaluation Mental status: Awake Pain Level: 0 nausea: No Vomiting: No Complications Anesthesia Complication: No
== END 2025-06-26 12:09 | disposition home or self-care (01) ==
LOC: EN 09:36 → AC 09:36
PROVIDERS: PCP Family Medicine Geriatric Medicine; Referring Provider Family Medicine Geriatric Medicine; Visit Provider Surgery
PROC: 0DJD8ZZ Inspection of Lower Intestinal Tract, Via Natural or Artificial Opening Endoscopic (ICD-10-PCS; CPT 45378; principal; 2025-06-26 10:25)
DX: R93.89 Abnormal findings on diagnostic imaging of other specified body structures (principal); C18.2 Malignant neoplasm of ascending colon; I11.0 Hypertensive heart disease with heart failure; I50.9 Heart failure, unspecified; J44.9 Chronic obstructive pulmonary disease, unspecified; E78.00 Pure hypercholesterolemia, unspecified; K64.8 Other hemorrhoids; Z87.891 Personal history of nicotine dependence; I25.10 Atherosclerotic heart disease of native coronary artery without angina pectoris; Z79.899 Other long term (current) drug therapy; K57.30 Diverticulosis of large intestine without perforation or abscess without bleeding; I25.2 Old myocardial infarction; Z79.82 Long term (current) use of aspirin
CPT/HCPCS: 45380; 45381; 88305; A4648

== ENCOUNTER 2025-07-07 08:30 | Outpatient (RCR) | payer MEDICARE, OTHER, SELFPAY ==
[2020-12-23 09:20] VITALS: BMI 29.0
[2025-06-23 10:54] VITALS: BP 125/72; PULSE 90; RESP 14; TEMP 36.2
--- NOTE | 2025-06-24 10:07 | PN.PCM_ITS ---
History of Present Illness Date of Service: 06/23/25 Chief Complaint: Left medial thigh wound after I&D in ED History of Wound: Tom Patel is a delightful 84-year-old male with history of metastatic melanoma from a primary lesion on his right lower chest which was excised for wide local excision on 25 April 2025. He unfortunately developed an abscess postop week 1 which was drained on 02 May 2025 and packed. He was placed on clindamycin. Cultures growing Enterococcus faecalis and E. coli. 05 May 2025: Patient doing better today and feels well. No fevers or chills. Reports no purulent drainage. Reports compliance with packing the wound. Subjective Subjective 12 May 2025: The patient is an 84-year-old male presenting with wound care management and follow-up on radiation therapy. He is nearing the end of his radiation therapy, with two sessions left, and reports that the treatment has been well-tolerated despite scheduling adjustments. The patient is managing a wound with Dakins solution applied twice daily, which has improved significantly, showing no signs of infection. He has completed his antibiotic regimen and continues regular dressing changes. Attestation: Documentation on this patient encounter was supported using ambient scribe technology/ voice AI technology. The patient consented to recording for the purpose of documenting the encounter. Provider reviewed content of the generated note prior to signature. 26 May 2025: Doing well. Finished antibiotics. Finished radiation therapy. No fevers/chills/drainage 09 Jun 2025: Doing well. Feels like wound smaller. Tolerating radiation to the metastatic tumor and no bleeding. CURRENT ENCOUNTER, 23 June 2025: Doing well with dressing changes. Feels like his tumor adjacent to the wound is also getting smaller Objective Data Objective Data Vital Signs: Vital Signs Temp Pulse Resp BP 97.1 F L 90 14 125/72 H 06/23/25 10:54 06/23/25 10:54 06/23/25 10:54 06/23/25 10:54 Charges/Coding Procedures Integumentary [id number]: [id number] Global Visit Physical Exam Narrative - Integumentary: Wound on the right upper quadrant of the abdomen/right lower chest, down to the SubQ level, with granulation tissue present, no signs of infection or fluid collection. Healing well and smaller today 3 x 0.7 cm and is 0.1 cm deep Const alert and oriented x3 General Appearance: frail Psych Attitude: other argumentative alternating with calm; initial part of the conversation patient asserts that he has done his own research and despite my attempts to educate him otherwise he continues to ascertain that 97 % of people that take Keytruda have very bad side effects Debridement Note Debridement Note No debridement was completed: No debridement was completed today Post-Debridement Measurements and Additional Note: Post-Debridement Measurements/Treatment WC - Nurse 1 - General Ulcer Assessment Start: 06/23/25 10:54 Freq: Status: Active Protocol: BEKAH Activity Type Activity Date Activity User E-sign Co-sign Detail Recorded Client Recorded Date Recorded By Document 06/23/25 10:54 ML [id number] 06/23/25 10:56 ML 06/23/25 10:54 WC - Today's Visit Information Type of service Follow-up Visit (Physician/SURGICAL ASSISTANT CERTIFIED ) Arrival Mode Ambulatory Transfer Assistance None Patient Identification Verified (Name & Yes ) Patient Requires Transmission-Based No Precautions Vital Signs Temperature (97.8 F-99.1 F) 97.1 F L Temperature Source Temporal Pulse Rate (60-100) 90 Pulse Location Monitor Respiratory Rate (12-18) 14 Respiratory rate source Observation Blood Pressure (90/60-120/80) 125/72 H Blood Pressure Mean (mm Hg) 89 Source Monitor Position Sitting Blood Pressure Location Right Arm History Since Last Visit- (Skip if this is Patient's initial visit) Have you changed medications since your No last visit? Any new allergies or adverse reactions No Had a fall/change in ADL's that may No increase risk of falls Signs or symptoms of abuse and/or No neglect since last visit Has dressing in place as prescribed Yes Has compression in place as prescribed N/A Has offloadiing in place as prescribed N/A Experienced any changes in pain level or No management Pain Scale: 0-10 Numeric Is Patient Pain Free? Yes - Nurse 1 - General Ulcer Measurement Start: 06/23/25 10:54 Freq: Status: Active Protocol: Activity Type Activity Date Activity User E-sign Co-sign Detail Recorded Client Recorded Date Recorded By Document 06/23/25 10:54 ML [id number] 06/23/25 10:56 ML 06/23/25 10:54 Wound Center Nurse 1 LOWER LEFT ABD -Current Size (cm) - Length 1 -Current Size (cm) - Width 0.3 -Current Size (cm) - Depth 0.1 -Total Square Cm 0.3 -Exudate Amt Small -Exudate Type Serosanguineous -Wound Margin Distinct, Outline Attached -Granulation Amt Small (1-33%) -Necrosis Amt Small (1-33%) -Necrotic Tissue Type Adherent Slough -Texture (Juanita-wound Skin Appearance) Assessed -Moisture (Juanita-wound Skin Appearance) Assessed -Color (Juanita-wound Skin Appearance) Assessed -Temperature (Juanita-wound Skin No Abnormality Appearance) (Pt Warm) -Tenderness on Palpation (Juanita-wound No Skin Appearance) -Ulcer Cleansing Rinsed/ Irrigated with Saline -Foul Odor after Cleansing No -Anesthetic Used 5% Lidocaine Gel WC - Nurse 2 - General Ulcer CM Notes Start: 06/23/25 10:54 Freq: Status: Active Protocol: Activity Type Activity Date Activity User E-sign Co-sign Detail Recorded Client Recorded Date Recorded By Document 06/23/25 11:37 [email or web address] [id number] 06/23/25 11:37 06/23/25 11:37 Wound Center Nurse 2 -Correct Patient Yes -Correct Side, Site, Position No -Correct Procedure No -Procedure Performed No -Post Debridement (cm) - Length 0.4 -Post Debridement (cm) - Width 2 -Post Debridement (cm) - Depth 0.1 -Total Square (Post) (cm) 0.8 -Area of Debridement (cm) - Length 0.4 -Area of Debridement (cm) - Width 2.0 -Total Square (Area) (cm) 0.80 -Tunneling No -Undermining/Tunneling No -Circular Undermining No -Wound/Ulcer Outcome Not Healed -Ulcer Cleansing Rinsed/ Irrigated with Saline -Foul Odor after Cleansing No -Bioengineered Tissue No -Bleeding Controlled with Pressure -Treatment Response Procedure Tolerated Well -Offloading No -Debridement - Subq, 1st 20sq cm No Pain Scale: 0-10 Numeric Is Patient Pain Free? Yes - Nurse 3 - General Ulcer D/C NN Start: 06/23/25 10:54 Freq: Status: Active Protocol: Activity Type Activity Date Activity User E-sign Co-sign Detail Recorded Client Recorded Date Recorded By Document 06/23/25 11:38 [email or web address] [id number] 06/23/25 11:38 06/23/25 11:38 Wound Care Center Nurse 3 LOWER LEFT ABD -Ulcer Cleansing Rinsed/ Irrigated with Saline -Foul Odor after Cleansing No -Primary Dressing Applied Promogran Candy Matter -Primary Dressing Covered/Secured with Dry Gauze, Secured with Tape -Promogran Candy Matter 1 Pain Scale: 0-10 Numeric Is Patient Pain Free? Yes WC - Visit Discharge Discharge Condition Stable Ambulatory Status Ambulatory Transportation Private Auto Medication Reconcilliation completed & Yes provided to patient/care provider Clinical Summary of Care Provided Yes Assessment/Plan Assessment/Plan (1) Open chest wound: CODE(S): S21.109A - Unspecified open wound of unspecified front wall of thorax without penetration into thoracic cavity, initial encounter PLAN: Continue hydrogel dressing changes to the wound from the primary excision of the melanoma The right upper chest tumor appears to be involuting with radiation but still has significant necrotic debris. I spoke to the radiation oncologist (Dr. Méndez) on the phone today after seeing Mr. Patel. Dr. Méndez is no longer planning any further treatment and recommended as needed follow-up at this point. The patient is getting some potential immunotherapy from oncology. I discussed concern for persistent necrotic debris and persistent right upper chest tumor and Dr. Méndez agreed he may need some additional radiation to this region. Our plan is for Mr. Patel to see me in 2 weeks to check his progress and then see if he needs a referral back to radiation oncology (likely) as the tumor appears to be still significant. I talked to Dr. Méndez about wound care over the tumor and he reports that in general radiation oncology does not do wound care over the tumor and they allow it to slough off. In the meantime we will do ABDs for control of the bioburden from the tumor. Patient happy with the plan
--- NOTE | 2025-06-25 09:37 | WC ---
PHOTO-ABD 06/23/25
[2025-07-07 08:32] VITALS: BP 121/73; PULSE 84; RESP 15; TEMP 36.1
--- NOTE | 2025-07-08 09:31 | PN.PCM_ITS ---
History of Present Illness Date of Service: 07/07/25 Chief Complaint: Left medial thigh wound after I&D in ED History of Wound: Tom Patel is a delightful 84-year-old male with history of metastatic melanoma from a primary lesion on his right lower chest which was excised for wide local excision on 25 April 2025. He unfortunately developed an abscess postop week 1 which was drained on 02 May 2025 and packed. He was placed on clindamycin. Cultures growing Enterococcus faecalis and E. coli. 05 May 2025: Patient doing better today and feels well. No fevers or chills. Reports no purulent drainage. Reports compliance with packing the wound. Subjective Subjective 12 May 2025: The patient is an 84-year-old male presenting with wound care management and follow-up on radiation therapy. He is nearing the end of his radiation therapy, with two sessions left, and reports that the treatment has been well-tolerated despite scheduling adjustments. The patient is managing a wound with Dakins solution applied twice daily, which has improved significantly, showing no signs of infection. He has completed his antibiotic regimen and continues regular dressing changes. Attestation: Documentation on this patient encounter was supported using ambient scribe technology/ voice AI technology. The patient consented to recording for the purpose of documenting the encounter. Provider reviewed content of the generated note prior to signature. 26 May 2025: Doing well. Finished antibiotics. Finished radiation therapy. No fevers/chills/drainage 09 Jun 2025: Doing well. Feels like wound smaller. Tolerating radiation to the metastatic tumor and no bleeding. 23 June 2025: Doing well with dressing changes. Feels like his tumor adjacent to the wound is also getting smaller. CURRENT ENCOUNTER, 08 Jul 2025: Patient doing well overall and is healed at the site of the wide local excision at the primary site. The tumor that is metastatic in the right upper chest is shrinking but still has some necrotic debris but the patient is managing with daily dressing changes. Objective Data Objective Data Vital Signs: Vital Signs Temp Pulse Resp BP 97.0 F L 84 15 121/73 H 07/07/25 08:32 07/07/25 08:32 07/07/25 08:32 07/07/25 08:32 Charges/Coding Visit Charges Office Visits / Consults: 68897 OV L2 Est 10min Physical Exam Narrative Chest: Necrotic fungating tumor right upper chest status post radiation. No signs of surrounding infection There is a right central chest scar and no open wound (transverse incision is healed in the area wide local excision of the primary). Debridement Note Debridement Note Post-Debridement Measurements and Additional Note: Post-Debridement Measurements/Treatment WC - Nurse 1 - General Ulcer Assessment Start: 06/23/25 10:54 Freq: Status: Active Protocol: BEKAH Activity Type Activity Date Activity User E-sign Co-sign Detail Recorded Client Recorded Date Recorded By Document 06/23/25 10:54 ML [id number] 06/23/25 10:56 ML Document 07/07/25 08:32 ML [id number] 07/07/25 08:34 ML 06/23/25 07/07/25 10:54 08:32 WC - Today's Visit Information Type of service Follow-up Visit Follow-up Visit (Physician/DUPLICATOR PUNCH SET UP OPERATOR (Physician/DUPLICATOR PUNCH SET UP OPERATOR ) ) Arrival Mode Ambulatory Ambulatory Transfer Assistance None None Patient Identification Verified (Name & Yes Yes ) Patient Requires Transmission-Based No No Precautions Vital Signs Temperature (97.8 F-99.1 F) 97.1 F L 97.0 F L Temperature Source Temporal Temporal Pulse Rate (60-100) 90 84 Pulse Location Monitor Monitor Respiratory Rate (12-18) 14 15 Respiratory rate source Observation Observation Blood Pressure (90/60-120/80) 125/72 H 121/73 H Blood Pressure Mean (mm Hg) 89 89 Source Monitor Monitor Position Sitting Sitting Blood Pressure Location Right Arm Left Arm History Since Last Visit- (Skip if this is Patient's initial visit) Have you changed medications since your No No last visit? Any new allergies or adverse reactions No No Had a fall/change in ADL's that may No No increase risk of falls Signs or symptoms of abuse and/or No No neglect since last visit Have you been in the hospital since your No last visit? Has dressing in place as prescribed Yes No Has compression in place as prescribed N/A No Has offloadiing in place as prescribed N/A No Experienced any changes in pain level or No No management Pain Scale: 0-10 Numeric Is Patient Pain Free? Yes Yes NADINE Velasquez Nurse 1 - General Ulcer Measurement Start: 06/23/25 10:54 Freq: Status: Active Protocol: Activity Type Activity Date Activity User E-sign Co-sign Detail Recorded Client Recorded Date Recorded By Document 06/23/25 10:54 ML [id number] 06/23/25 10:56 ML Document 07/07/25 08:32 ML [id number] 07/07/25 08:34 ML 06/23/25 07/07/25 10:54 08:32 Wound Center Nurse 1 LOWER LEFT ABD -Current Size (cm) - Length 1 0.1 -Current Size (cm) - Width 0.3 0.1 -Current Size (cm) - Depth 0.1 0.1 -Total Square Cm 0.3 0.01 -Exudate Amt Small None Present -Exudate Type Serosanguineous -Wound Margin Distinct, Outline Attached -Granulation Amt Small (1-33%) None Present (0 %) -Slough/Fibrin No -Necrosis Amt Small (1-33%) None Present (0 %) -Necrotic Tissue Type Adherent Slough -Texture (Juanita-wound Skin Appearance) Assessed Assessed -Moisture (Juanita-wound Skin Appearance) Assessed Assessed -Color (Juanita-wound Skin Appearance) Assessed Assessed -Temperature (Juanita-wound Skin No Abnormality No Abnormality Appearance) (Pt Warm) (Pt Warm) -Tenderness on Palpation (Juanita-wound No No Skin Appearance) -Ulcer Cleansing Rinsed/ Irrigated with Saline -Foul Odor after Cleansing No No -Anesthetic Used 5% Lidocaine Gel WC - Nurse 2 - General Ulcer CM Notes Start: 06/23/25 10:54 Freq: Status: Active Protocol: Activity Type Activity Date Activity User E-sign Co-sign Detail Recorded Client Recorded Date Recorded By Document 06/23/25 11:37 [id number] 06/23/25 11:37 Document 07/07/25 08:49 [id number] 07/07/25 08:50 06/23/25 07/07/25 11:37 08:49 Wound Center Nurse 2 LOWER LEFT ABD -Correct Patient Yes Yes -Correct Side, Site, Position No No -Correct Procedure No No -Procedure Performed No No -Post Debridement (cm) - Length 0.4 0 -Post Debridement (cm) - Width 2 0 -Post Debridement (cm) - Depth 0.1 0 -Total Square (Post) (cm) 0.8 0 -Area of Debridement (cm) - Length 0.4 0 -Area of Debridement (cm) - Width 2.0 0 -Total Square (Area) (cm) 0.80 0 -Tunneling No -Undermining/Tunneling No -Circular Undermining No -Wound/Ulcer Outcome Not Healed Healed- Epithelialized -Ulcer Cleansing Rinsed/ Irrigated with Saline -Foul Odor after Cleansing No -Bioengineered Tissue No -Bleeding Controlled with Pressure -Treatment Response Procedure Tolerated Well -Offloading No -Debridement - Subq, 1st 20sq cm No Pain Scale: 0-10 Numeric Is Patient Pain Free? Yes Yes - Nurse 3 - General Ulcer D/C NN Start: 06/23/25 10:54 Freq: Status: Active Protocol: Activity Type Activity Date Activity User E-sign Co-sign Detail Recorded Client Recorded Date Recorded By Document 06/23/25 11:38 [id number] 06/23/25 11:38 Document 07/07/25 08:49 [id number] 07/07/25 08:50 06/23/25 07/07/25 11:38 08:49 Wound Care Center Nurse 3 LOWER LEFT ABD -Ulcer Cleansing Rinsed/ Irrigated with Saline -Foul Odor after Cleansing No -Primary Dressing Applied Promogran Candy Matter -Primary Dressing Covered/Secured with Dry Gauze, Secured with Tape -Promogran Candy Matter 1 Pain Scale: 0-10 Numeric Is Patient Pain Free? Yes Yes WC - Visit Discharge Discharge Condition Stable Stable Ambulatory Status Ambulatory Ambulatory Transportation Private Auto Private Auto Medication Reconcilliation completed & Yes Yes provided to patient/care provider Clinical Summary of Care Provided Yes Yes Assessment/Plan Assessment/Plan (1) Malignant neoplasm of skin of chest: CODE(S): C44.509 - Unspecified malignant neoplasm of skin of other part of trunk PLAN: Patient has recently had a biopsy of the ascending colon during a colonoscopy on 26 June 2025. We are awaiting the pathology report to see if it is a primary colon cancer or a metastatic melanoma lesion. I talked to radiation oncology about the patient today, and they have no plans for further radiation unless the patient were to have persistent fungating right upper chest mass without a plan for immunotherapy or any other medical oncologic agents. I also reached out to the medical oncology team to clarify the plan going forward for the right upper chest malignancy, as this area is causing him significant discomfort and distress secondary to the necrotic debris. Will continue to coordinate his cancer care with the other teams. Specific wound from wide local excision is now healed and he requires no further follow-up in the wound care center for this problem.
--- NOTE | 2025-07-08 10:05 | WC ---
PHOTO-[facility]- 07/07/25
== END 2025-07-15 15:50 | disposition home or self-care (01) ==
LOC: WC 08:30
PROVIDERS: PCP Family Medicine Geriatric Medicine; Referring Provider Family Medicine Geriatric Medicine; Visit Provider Surgery Plastic and Reconstructive Surgery
DX: T81.89XA Other complications of procedures, not elsewhere classified, initial encounter (principal); Z92.3 Personal history of irradiation; Z85.820 Personal history of malignant melanoma of skin; S21.101A Unspecified open wound of right front wall of thorax without penetration into thoracic cavity, initial encounter; Y83.8 Other surgical procedures as the cause of abnormal reaction of the patient, or of later complication, without mention of misadventure at the time of the procedure
CPT/HCPCS: 99212; 99213; G0463

== ENCOUNTER → 2025-08-13 | Outpatient (CLI) | payer MEDICARE, OTHER, SELFPAY ==
[2020-12-23 09:20] VITALS: BMI 29.0
--- NOTE | 2025-08-13 16:55 | RAD_ITS ---
PROCEDURE: CHEST PA AND LATERAL 08/13/2025 REASON FOR EXAM: WHEEZING TECHNIQUE: Procedure Code: RADCXR Modality: DX Procedure: CHEST PA AND LATERAL COMPARISON: 10/14/2021 and April 02, 2025, as well as a prior PET-CT from April 22, 2025 performed for "melanoma staging" FINDINGS: There are multiple rounded nodules and masses of varying size is overlying both lungs, ibop-[id number]-[id number]. This is concerning for metastatic disease. These were not present on previous studies. No pneumothorax. No definite pleural effusion. Heart size is within normal limits. Sternotomy wires are present. Osseous structures are unremarkable. RAD/Chest PA and Lateral IMPRESSION: Multiple pulmonary masses which are very concerning for metastatic disease. Ch est CT is recommended if clinically indicated. As per the history from the PET-CT from April 22, 2025, the patient has a history of melanoma. Reading [facility]
== END | disposition home or self-care (01) ==
LOC: POLAB3 16:35
PROVIDERS: PCP Family Medicine Geriatric Medicine; Visit Provider Family Medicine Geriatric Medicine
DX: R06.2 Wheezing (principal)
CPT/HCPCS: 71046; 87631

== ENCOUNTER → 2025-08-13 | Outpatient (CLI) | payer MEDICARE, OTHER, SELFPAY ==
[2020-12-23 09:20] VITALS: BMI 29.0
== END | disposition home or self-care (01) ==
LOC: RAD 16:53
PROVIDERS: PCP Family Medicine Geriatric Medicine; Referring Provider Family Medicine Geriatric Medicine; Visit Provider Family Medicine Geriatric Medicine
DX: R06.2 Wheezing (principal)